=== PATIENT | male | born 1960 | race Caucasian/White ===

== ENCOUNTER 2022-02-21 08:15 | Outpatient (CLI) | payer OTHER, SELFPAY ==
[2022-02-21 11:38] LABS: Albumin* 4.5 g/dL (3.3-5.0); Chloride* 102 mmol/L (96-114); Potassium* 4.6 mmol/L (3.6-5.1); Sodium* 138 mmol/L (135-149)
[2022-02-21 11:41] LABS: Blood Urea Nitrogen* 27 mg/dL (7-30); Carbon Dioxide* 27 mmol/L (20-32); Creatinine* 1.5 mg/dL (0.5-1.5); Estimated Glomerular Filt Rate 53 ml/min; Glucose* 140 mg/dL (60-115); Phosphorus* 4.4 mg/dL (2.5-4.5)
[2022-02-21 11:42] LABS: Calcium* 9.8 mg/dL (8.4-10.6)
[2022-02-21 11:50] LABS: NT Pro B Type NatriureticPept* 18 PG/mL (0-125)
[2022-02-21 12:05] LABS: Creatinine Urine 101.7 mg/dL
[2022-02-21 12:09] LABS: Microalbumin Creatinine Ratio 20 mg/g (0-30); Microalbumin Urine 3 mg/dL
[2022-02-26 10:34] LABS: Troponin I* < 0.01 ng/ml (0.01-0.04)
== END 2022-02-21 08:16 | disposition home or self-care (01) ==
PROVIDERS: PCP Family Medicine; Visit Provider Internal Medicine Nephrology
DX: N18.30 Chronic kidney disease, stage 3 unspecified (principal); R06.02 Shortness of breath
CPT/HCPCS: 80069; 82043; 82570; 83880; 84484

== ENCOUNTER 2022-03-06 08:44 | Outpatient (CLI) | payer OTHER, SELFPAY ==
--- NOTE | 2022-03-06 09:00 | CRLHL7_ITS ---
For Patients: As a result of the Century Cures Act, medical imaging exams and procedure reports are released immediately into your electronic medical record. You may view this report before your referring provider. If you have questions, please contact your health care provider. [facility] ??? [facility] MYOCARDIAL PERFUSION SCAN CLINICAL HISTORY: 62-year-old male. Chest pain. Hypertension. Hyperlipidemia. Stage 3 chronic kidney disease. Type 2 diabetes. 200 pounds. TECHNIQUE: (Resting SPECT and stress gated SPECT with wall motion and ejection fraction) Stress: Treadmill (3 minutes 37 seconds) Maximum heart rate: 149 bpm Maximum systolic blood pressure: 181 mmHg systolic Rate pressure product: 26,969 Dose (Stress/Rest): 32.7 mCi Tc-99m Sestamibi/8.49 mCi Tc-99m Sestamibi (IV) Comparison: None FINDINGS: There is good uptake of activity by the left ventricle. No left ventricular enlargement is noted. There is soft tissue attenuation. No other significant fixed or reversible defects are identified. The gated images demonstrate a normal left ventricular ejection fraction of approximately 65 percent. No regional wall motion abnormalities are identified. IMPRESSION: 1) There is no evidence of significant myocardial ischemia or infarction. 2) Normal left ventricular ejection fraction of approximately 65 percent. DAVID CONTI M.D. Diagnostic/Nuclear Medicine Radiologist [email or web address] Transcribed: 11:32 a.m. PT/Dictated by: David Conti MD @ 03/06/2022 11:18:00 AM (Electronically Signed)
--- NOTE | 2022-03-06 11:15 | PM.ST ---
Stress Test Note Date Time Seen by Provider: 09:45 Date Seen: 03/06/22 Date of test: 03/06/22 Providers Referring provider: Alex Ryan JR Primary care provider: Nathaniel Dee Stress test physician: Ciarra Shrestha Stress Test Note Stress test ordered: Stress Myoview Indication for test: Dyspnea on exertion, chest discomfort/pain. History sheet reviewed. Stress test medicine: None Results discussion: Resting EKG: Sinus rhythm, 73 beats per minute Resting blood pressure: 180/104 Stress test: Patient was exercised on the treadmill following standard Jose A protocol. He was able to exercise 3 minutes 37 seconds, achieving 5.2 Mets. He did obtain a maximum heart rate of 149 beats per minute which was 109% of a calculated target heart rate of 136. He had a maximal blood pressure of 181/102, rate pressure product of 23,168. Patient was very symptomatic lead dyspneic with this level of exercise, did not have any chest pain. He got significant leg cramps/fatigue with this as well. There was no arrhythmia, no EKG ischemic evidence seen. Patient will have his nuclear images completed postexercise. Impression: Significant can not dyspnea with exercise but no chest pain, objectively negative EKG portion of this exercise Myoview. Follow up suggested: Await nuclear imaging to couple this test for a formal diagnostic report. He was discharged from the EKG portion of the test back to baseline.
== END 2022-03-06 08:45 | disposition home or self-care (01) ==
LOC: STRESS 08:45
PROVIDERS: PCP Family Medicine; Visit Provider Internal Medicine Nephrology
DX: R07.89 Other chest pain (principal); I10 Essential (primary) hypertension; E78.5 Hyperlipidemia, unspecified; N18.30 Chronic kidney disease, stage 3 unspecified; E11.9 Type 2 diabetes mellitus without complications
CPT/HCPCS: 78452; 93016; 93017; A9500

== ENCOUNTER 2022-04-16 07:51 | Outpatient (CLI) | payer OTHER, SELFPAY ==
--- OUTSIDE RECORDS SUMMARY | 2022-04-16 08:07 | XMS_ITS | Encounter Summary ---
:1960 Author [facility] Address [address] [address] Care Team Providers Name Role Phone Unavailable Primary Care Provider Unavailable Reason for Visit Reason Onset Date Comments Refill 08/17/2020 Encounter Details Date Type Department Care Team Description 08/17/2020 Refill Specialty Center 3931 Newton Hernandez MD Refill Nephrology 3931 [facility] [address] [place] [address] [place] [address] [phone] Social History Tobacco Use Types Packs/Day Years Used Date Smoking Tobacco: Never Smokeless Tobacco: Never Alcohol Use Standard Drinks/Week Comments Yes 0 (1 standard drink = 0.6 oz pure Alcoho lic Drinks/day: Amount:1-2 alcohol) drinks; Freq:=< Curt hly; Alcohol Habits Answer Date Recorded How often do you have a drink Not asked containing alcohol? How many drinks containing alcohol Not asked do you have on a typical day when you are drinking? How often do you have six or more Not asked drinks on one occasion? Comment: Alcoholic Drinks/day: Amount:1-2 016 drinks; Freq:=< Monthly; Sex Assigned at Date Recorded Not on file documented as of this encounter Nursing Notes Latoya Barriga RN - 08/18/2020 1:42 PM CST Rx refused. Needs an appt. 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 Count carbohydrates at meals and snacks. documented as of this encounter Visit Diagnoses Diagnosis Chronic kidney disease, stage III (moder ate) ([facility]) Chronic kidney disease, Stage III (moder ate) documented in this encounter
--- OUTSIDE RECORDS SUMMARY | 2022-04-16 08:07 | XMS_ITS | Encounter Summary ---
:1960 Author Organization [employer] Address [address], [place] [address] Care Team Providers Name Role Phone Sunny Giraldo MD Primary Care Provider Reason for Visit Reason Comments Diabetes Encounter Details Date Type Department Care Team Description 04/25/2019 Office Visit [facility] Sunny Giraldo M D Type 2 diabetes mellitus without complic ation, without long-term current use of insulin (HRC) (Primary Dx); Medicine [id number] COULTER (dyspnea on exertion) [address] [place] [phone] Social History Tobacco Use Types Packs/Day Years [...] on file documented as of this encounter Last Filed Vital Signs Vital Sign Reading Time Taken Comments Blood Pressure 122/85 04/25/2019 9:10 AM CDT Pulse 79 04/25/2019 9:10 AM CDT Temperature 36.8 ??C (98.2 ??F) 04/25/2019 9:10 AM CDT Respiratory Rate 16 04/25/2019 9:10 AM CDT Oxygen Saturation - - Inhaled Oxygen Concentration - - Weight 83.5 kg (184 lb) 04/25/2019 9:10 AM CDT Height - - Body Mass Index 24.61 02/25/2018 4:20 PM CDT documented in this encounter Progress Notes Sunny Giraldo MD - 04/25/2019 9:00 AM CDT SUBJECTIVE: 59 y.o. male for follow up of diabetes. Diabetic Review of Systems - medication compliance: compliant all of the time, diabetic diet compliance: compliant most of the time, home glucose monitoring: is performed sporadically, Ketonuria noncompliant much of the time, last eye exam approximately this year . Other symptoms and concerns: None. Current Outpatient Medications Medication Sig Dispense Refill ??? ALBUterol sulfate HFA 108 (90 Base) MCG/ACT inhaler Inhale 1-2 Puffs every 4 hours as needed. 1 Inhaler 0 ??? atorvastatin (LIPITOR) 20 MG tablet TAKE 1 TAB BY MOUTH DAILY. 90 Tablet 0 ??? blood glucose (ACCU-CHEK GUIDE) test strip Use 1 Strip to test three times a day. check blood sugar before breakfast, before & 1 hour after start of largest meal 100 Strip 11 ??? Blood Glucose Monitoring Suppl (ACCU-CHEK GUIDE) w/Device KIT HOLD RX, only fill if alternate supplies not covered by insurance. If not covered, substitute appropriate meter. Use to check blood sugars. 1 Kit 0 ??? chlorthalidone (HYGROTON) 25 MG tablet TAKE 1 TABLET BY MOUTH DAILY. 90 Tablet 0 ??? chlorthalidone (HYGROTON) 25 MG tablet Take 1 Tablet by mouth daily. 90 Tablet 3 ??? lancets (ACCU-CHEK FASTCLIX) Use 1 Each to test three times a day. Use as directed to check blood sugars 102 Each 11 ??? losartan (COZAAR) 25 MG tablet Take 2 Tablets by mouth daily. 180 Tablet 3 ??? metFORMIN (GLUCOPHAGE) 1000 MG tablet Take 1 Tablet by mouth two times a day with meals. 180 Tablet 3 ??? omeprazole (PRILOSEC) 20 MG capsule Take 20 mg by mouth daily. Take 1 hour before a meal. No current facility-administered medications for this visit. OBJECTIVE: Appearance: alert, well appearing, and in no distress, oriented to person, place, and time and normal appearing weight. BP 122/85 (BP Location: Left Arm, BP Cuff Size: Regular) Pulse 79 Temp 98.2 ??F (36.8 ??C) (Oral) Resp 16 Wt 184 lb (83.5 kg) BMI 24.61 kg/m?? Exam: fundi normal, heart sounds normal rate, regular rhythm, normal S1, S2, no murmurs, rubs, clicks or gallops, chest clear, no hepatosplenomegaly, no carotid bruits, feet: warm, good capillary refill and normal monofilament test His lung I do not hear any wheezing crackles or rhonchi. Patient complained about sometimes if he go up the hill if it can of some tightness in his chest. Hehad so far 2-3 echocardiogram or appear with normal limit. Patient did use some steroid on some albuterol inhaler 1 time but he got so hyper with it he quit to taking it. 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 Possible some allergy occasion he take Natalie. He does not know if any about oral inhaler help or not. ASSESSMENT: Diabetes Mellitus: stable PLAN: See orders for this visit as documented in the electronic medical record. Issues reviewed with him: diabetic diet discussed in detail, written exchange diet given, low cholesterol diet, weight control and daily exercise discussed, home glucose monitoring emphasized, all medications, side effects and compliance discussed carefully, foot care discussed and Podiatry visits discussed, annual eye examinations at Ophthalmology discussed, glycohemoglobin and other lab monitoring discussed and watermelon inspector diabetic complications discussed. We going to try albuterol metered-dose inhaler and see if is going to be useful, if this also not useful he agree I will send him to [facility] for further lung capacity evaluation and lungs test. Patient agree documented in this encounter Plan of Treatment Not on filedocumented as of this encounter Goals Goal Patient Goal Associated Recent Patient-Stated? 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 Count carbohydrates at meals and snacks. documented as of this encounter Results Hgb A1C (04/25/2019 10:08 AM CDT) P athologist Signature Hemoglobin A1C 5.6 <=5.6 % 04/26/2019 [facility] 10:41 AM CDT LABORATORY Specimen Anatomical Collection Method / Collection Time Recei katherine Time (Source) Location / Volume Laterality Blood Venipuncture / 04/25/2019 10:08 9 Unknown AM CDT 10:08 AM CDT Sunny Giraldo MD LAB_1 Performing Organization Address City/[facility]/ZIP Code Phon e Number [facility] [address] [place] [address] (ABNORMAL) Lipid Panel - LDLD If Trig High (04/25/2019 10:08 AM CDT) Patholo gist Method Time Signature Cholesterol 146 0 - 199 04/25/2019 [facility] mg/dL 3:53 PM CDT LABORATORY Triglyceride 118 <=149 04/25/2019 [facility] mg/dL 3:53 PM CDT LABORATORY HDL Cholesterol 35 (L) >=40 mg/dL 04/25/2019 [facility] 3:53 PM CDT LABORATORY LDL, Calculated 87 <130 mg/dL 04/25/2019 [facility] 3:53 PM CDT LABORATORY Non HDL Chol, 111 <=159 04/25/2019 [facility] Calculated mg/dL 3:53 PM CDT LABORATORY Cholesterol/HDL 4.2 04/25/2019 [facility] Ratio 3:53 PM CDT LABORATORY Hours Fasting 15 04/25/2019 [facility] 3:53 PM CDT Specimen Anatomical Collection Method / Collection Time Recei katherine Time (Source) Location / Volume Laterality Blood Venipuncture / 04/25/2019 10:08 9 Unknown AM CDT 10:08 AM CDT Sunny Giraldo MD LAB_1 Performing Organization Address City/State/ZIP Code Phon e Number [facility] [address] [place] [address] [facility] [address] [place] [address], [phone] [facility] documented in this encounter Visit Diagnoses Diagnosis Type 2 diabetes mellitus without complic ation, without long-term current use of insulin (HRC) - Primary COULTER (dyspnea on exertion) Other dyspnea and respiratory abnormalit y documented in this encounter Care Teams Printing Press Operator Relationship Specialty Start Date End Date Sunny Giraldo MD PCP - General Family Practice 02/21/17 08/08/20 [address] [place] [address] documented as of this encounter
--- OUTSIDE RECORDS SUMMARY | 2022-04-16 08:07 | XMS_ITS | Encounter Summary ---
:1960 Author Organization [employer] Address [address] [place] [address] Care Team Providers Name Role Phone Sunny Giraldo MD Primary Care Provider Reason for Visit Reason Comments UPDATE Encounter Details Date Type Department Care Team Description 08/26/2019 Telephone Specialty Center 3931 Newton Hernandez MD UPDATE Nephrology [address] [facility] [address] [facility] [address] [place] [address] [place], [place] [phone] (Wo rk) Social History Tobacco Use Types Packs/Day Years [...] documented as of this encounter Nursing Notes Sydnee Li LPN - 08/27/2019 3:31 PM CST Patient notified. OLE BEVELER Terrence Hernandez MD - 08/26/2019 1:51 PM CST Have him stop the chlorthalidone. Increase losartan to 75mg daily. OLE BEVELER Asia Tejada RN - 08/26/2019 9:28 AM CST Pts spouse called, said pt was not able to respond to lab message, but did receive the lab message asking about BP. Pt's BP update for past 2 weeks: 135 - 138 / 88-90 Pt does not notice a change in BP since med changed. You can respond to pt via [employer] message here. OLE BEVELER documented in this encounter Plan of Treatment Not on filedocumented as of this encounter Goals Goal Patient Goal Associated Recent Patient-Stated? Author Type Problems Progress Eating Diabetes On track No Genaro healthy Education (05/30/2017 ASHIA Crews, 4:29 PM OUTSOLE BEVELER) CHEIKH RAMIREZ Note: Formatting of this note might be d ifferent from the original. Count carbohydrates at meals and snacks. documented as of this encounter Visit Diagnoses Diagnosis Chronic kidney disease, stage III (moder ate) ([facility]) Chronic kidney disease, Stage III (moder ate) documented in this encounter Care Teams Botanical Technical Officer Relationship Specialty Start Date End Date Sunny Giraldo MD PCP - General Family Practice 02/21/17 08/08/20 [address] [place] [address] documented as of this encounter
--- OUTSIDE RECORDS SUMMARY | 2022-04-16 08:07 | XMS_ITS | Encounter Summary ---
:1960 Author Organization [facility] Address [address] [address] Care Team Providers Name Role Phone Sunny Giraldo MD Primary Care Provider Reason for Referral (Routine) - Closed Specialty Diagnoses / Procedures Referred By Contact Refer red To Contact Diagnoses Anginal pain (HRC) Eva Hernandez MD Procedures Stress Echocardiogram 3931 [facility] [address] [place], [place] [address] Referral ID Status Reason Start Date Expiration Date Visits Requ ested Visits Authorized [id number] Closed 03/03/2019 06/01/2020 1 1 Reason for Visit Reason Comments Orders Needed Encounter Details Date Type Department Care Team Description 03/03/2019 Notes/Orders Specialty Center 3931 Newton Hernandez MD Anginal pain (HRC) Nephrology [address] [place] [address] (Primary Dx) 3931 [facility] [address] [place] [phone] (Wo rk) Social History Tobacco Use Types [...] on file documented as of this encounter Progress Notes Britt Vera RN - 03/03/2019 11:41 AM CDT Stress echo ordered not showing up per cardiology - may be wrong order. Please review pended order and sign or advise as appropriate. Nursing, patient will need call to schedule. Eva Hernandez MD - 03/03/2019 11:41 AM CDT done Britt Vera RN - 03/03/2019 11:41 AM CDT Patient warm transferred to cardiology to schedule. documented in this encounter Plan of Treatment Not on filedocumented as of this encounter Goals Goal Patient Goal Associated Recent Patient-Stated? 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 Count carbohydrates at meals and snacks. documented as of this encounter Results Stress Echocardiogram (03/12/2019 11:02 AM CDT) Specimen (Source) Anatomical Collection Method Collection Time Re ceived Time Location / / Volume Laterality 03/12/2019 11:02 AM CDT Narrative PN ECHO - 03/12/2019 11:50 AM CDT STRESS ECHOCARDIOGRAM. Date: 03/12/2019 Start: 11:02 AM Fabio y: Jose CONCLUSIONS REST: LV chamber size, wall thickness, and seg mental and global wall motion are normal. No significant valvular abno rmalities are seen. The visually estimated resting LVEF is 5 5 %. STRESS: All segments display appropriate hyperki nesis; ejection fraction increases appropriately. End systolic area decreases CONCLUSIONS: Normal exercise echocardiogram with adeq uate heart rate and workload. No evidence for inducible ischemia. Risk stratification by stress echocardio graphy is identified as low risk based on normal stress echocardiogr am. REST ECG Normal sinus rhythm. Mild nonspecific S T-T segments. Resting HR:91 bpmResting BP:163/99 mmHg Pre-Stress Physical Exam No medications which affect electrocard iographic interpretation. STRESS Stress Type: Bike Ergometer Peak HR: 151 bpm ?HR Response: Normal Peak BP: 187/97 mmHg ?BP Response: Normal Max Predicted HR: 163 bpm ? HR BP Product: 23896 % of Max Predicted HR: 93 ? Max Exercise: 7.1 METS Test Duration: 8.23 min Reason for Termination: Fatigue ? Exercise Effort: Good Risk Stratification: Low risk Stress Interpretation ECG portion of stress test is negative for ischemia. RESULTS Global LVEF (rest): Normal (LVEF >51%) Global LVEF (stress): Normal (LVEF >51% ) ECG No significant ST-T changes noted durin g exercise. ARRHYTHMIAS No rhythm abnormality. SYMPTOMS Fatigue. Musculoskeletal. Shortness of breath. Protocol completed. Predicted heart rat e achieved. No chest discomfort. M-MODE/2D MEASUREMENTS & CALCULATIONS ? Ascending Aorta: 3.6 cm EF Estimated: 55 % ? MR Radius: PROCEDURE Doppler Quality: Adequate quality pulse, continuous wave, and color Doppler was performed and interpreted. 2-D Quality:Adequate quality 2-dimension al echo was performed and interpreted. Indications: Angina. Contrast Medium: Optison. Contrast Amt. - 1.5 ml Height: 72 inches Weight: 182 pounds BSA : 2.05 m^2 BMI: 24.68 kg/m^2 Rhythm: Sinus Gender: ? Male *Suboptimal study; Echo dropout of the a nterior, lateral, apical, septal, inferior wall/s. 6 of 6 segments in standard Apical 4 chamber, 3 chamber, 2 chamber view/s are not visu alized on study. An image enhancer was used due to suboptimal endo cardial definition. With the use of an image enhancer, the segments o f the left ventricle were reasonably visualized. *IV Size: 22 ga; IV Location: right; # o f attempts: 1; Vein: median cubital vein. SIGNATURE DEMOGRAPHICS Patient Name ?? BRENNEN MORENO ??Room [facility] ?OUTPT ?G Patient Number [id number] ? Date o f Study ?03/12/2019 Accession ?[id number] ?Int erpreting ? JOHN HOLLAND, Number ?Physician ? Date of ??1960 ? [place] lay Physician EVA HERNANDEZ MD Primary ?EVA HERNANDEZ Physician ?MD ? Domestic Freight Forwarder ?HAYDEN, RDCS Nurse ?MANOLO, veneer puller Note John Holland MD - 03/12/2019For matting of this note might be different from the original. STRESS ECHOCARDIOGRAM. Date: 03/12/2019 Start: 11:02 AM Facilit y: Jose CONCLUSIONS REST: LV chamber size, wall thickness, and seg mental and global wall motion are normal. No significant valvular abno rmalities are seen. The visually estimated resting LVEF is 5 5 %. STRESS: All segments display appropriate hyperki nesis; ejection fraction increases appropriately. End systolic area decreases CONCLUSIONS: Normal exercise echocardiogram with adeq uate heart rate and workload. No evidence for inducible ischemia. Risk stratification by stress echocardio graphy is identified as low risk based on normal stress echocardiogr am. REST ECG Normal sinus rhythm. Mild nonspecific S T-T segments. Resting HR:91 bpmResting BP:163/99 mmHg Pre-Stress Physical Exam No medications which affect electrocard iographic interpretation. STRESS Stress Type: Bike Ergometer Peak HR: 151 bpm HR Response: Normal Peak BP: 187/97 mmHg BP Response: Jacy l Max Predicted HR: 163 bpm HR BP Product : 81080 % of Max Predicted HR: 93 Max Exercise: 7.1 METS Test Duration: 8.23 min Reason for Termination: Fatigue Exercis e Effort: Good Risk Stratification: Low risk Stress Interpretation ECG portion of stress test is negative for ischemia. RESULTS Global LVEF (rest): Normal (LVEF >51%) Global LVEF (stress): Normal (LVEF >51% ) ECG No significant ST-T changes noted durin g exercise. ARRHYTHMIAS No rhythm abnormality. SYMPTOMS Fatigue. Musculoskeletal. Shortness of breath. Protocol completed. Predicted heart rat e achieved. No chest discomfort. M-MODE/2D MEASUREMENTS & CALCULATIONS Ascending Aorta: 3.6 cm EF Estimated: 55 % MR Radius: PROCEDURE Doppler Quality: Adequate quality pulse, continuous wave, and color Doppler was performed and interpreted. 2-D Quality:Adequate quality 2-dimension al echo was performed and interpreted. Indications: Angina. Contrast Medium: Optison. Contrast Amt. - 1.5 ml Height: 72 inches Weight: 182 pounds BSA : 2.05 m^2 BMI: 24.68 kg/m^2 Rhythm: Sinus Gender: Male *Suboptimal study; Echo dropout of the a nterior, lateral, apical, septal, inferior wall/s. 6 of 6 segments in standard Apical 4 chamber, 3 chamber, 2 chamber view/s are not visu alized on study. An image enhancer was used due to suboptimal endo cardial definition. With the use of an image enhancer, the segments o f the left ventricle were reasonably visualized. *IV Size: 22 ga; IV Location: right; # o f attempts: 1; Vein: median cubital vein. SIGNATURE DEMOGRAPHICS Patient Name BRENNEN MORENO Room Number OUTPT G Patient Number [id number] Date of Study 0 03/12/2019 Interpreting Seb ESPANA Physician Date of 1960 Ordering Physi roque HERNANDEZ MD Primary EVA HERNANDEZ Physician Domestic Freight Forwarder HAYDEN, RDCS Nurse MANOLO, RN Eva Hernandez MD PN ECHO ORDERABLES Performing Organization Address City/State/ZIP Code Phon e Number PN ECHO documented in this encounter Visit Diagnoses Diagnosis Anginal pain (HRC) - Primary Other and unspecified angina pectoris Anginal pain (HRC) Other and unspecified angina pectoris documented in this encounter Care Teams Salsa Dance Instructor Relationship Specialty Start Date End Date Sunny Giraldo MD PCP - General Family Practice 02/21/17 08/08/20 [address] [place] [address] documented as of this encounter
--- OUTSIDE RECORDS SUMMARY | 2022-04-16 08:07 | XMS_ITS | Encounter Summary ---
:1960 Author Organization [facility] Address [address], [place] [address] Care Team Providers Name Role Phone Unavailable Primary Care Provider Unavailable Reason for Visit Reason Comments Refill metFORMIN (GLUCOPHAGE) 1000 MG tablet [Pharmacy Med Name: METFORMIN HCL 1,000 MG TABLET] Encounter Details Date Type Department Care Team Description 09/25/2020 Refill [facility] Pita Giraldo MD Refill (metFORMIN [address] [address] (GLUCOPHAGE) 1000 MG [place], [place] [address] tablet [Pharmacy Med [id number] Name: METFORMIN HCL [id number] 1,000 MG TABLET]) Social History Tobacco Use Types Packs/Day Years [...] documented as of this encounter Nursing Notes Ernestine Salinas RN - 09/26/2020 3:11 PM CST 90 day supply given per Emergency Refill Standing Order. Ernestine Salinas RN 09/26/2020, 3:11 PM E COMMERCE MARKETING ANALYST Interface, Out [employer] Prov Query - 09/25/2020 12:26 AM CST metFORMIN (GLUCOPHAGE) 1000 MG tablet [Pharmacy Med Name: METFORMIN HCL 1,000 MG TABLET] Medication started: 02/22/2017 Last ordered by PITA GIRALDO: 04/05/2020 (173 days ago) QTY: 180, Refills: 1, Sig: take 1 tablet by mouth two times a day with meals. (unchanged) -> Cr is overdue (performed over 13 months ago, required every 12 months) -> HBA1C is overdue (performed 13 months ago, required every 12 months) -> Cr is abnormal (1.5 mg/dL lies outside 0.73 mg/dL - 1.18 mg/dL) Last qualifying visit: 09/08/2019 (with PITA GIRALDO) Next scheduled visit: None Cr: 1.5 mg/dL on 08/18/2019 HBA1C: 5.5 % on 09/08/2019 Powered by [employer], Reference: [id number], 09/25/2020 12:26:41 AM E COMMERCE MARKETING ANALYST, Pool: JO REFILL ([id number]) Interface, Out Surescripts Prov Query - 09/25/2020 12:26 AM CST The following lab order(s) may be associated with the Result Note below: HGB A1C Notes recorded by Pita Giraldo MD on 09/09/2019 at 8:41 AM E COMMERCE MARKETING ANALYST hgA1C great follow up for DM in 6 months Interface, Out Surescripts Prov Query - 09/25/2020 12:26 AM CST The following lab order(s) may be associated with the following Patient Result Comment (Entered by Terrence Hernandez MD at 08/25/2019 11:29 AM): RENAL FUNCTION PANEL The calcium is up again. Likely this is from the chlorthalidone. Let me know how your blood pressureis doing. We may have to adjust the chlorthalidone. documented in this encounter Plan of Treatment Not on filedocumented as of this encounter Goals Goal Patient Goal Associated Recent Patient-Stated? Author Type Problems Progress Eating Diabetes On track Kelin Lam healthy Education (05/30/2017 ASHIA Crews, 4:29 PM E COMMERCE MARKETING ANALYST) ASHLEY, CHEIKH Note: Formatting of this note might be d ifferent from the original. Count carbohydrates at meals and snacks. documented as of this encounter Visit Diagnoses Not on filedocumented in this encounter
--- OUTSIDE RECORDS SUMMARY | 2022-04-16 08:07 | XMS_ITS | Encounter Summary ---
:1960 Author [facility] Address [address] [address] Care Team Providers Name Role Phone Pita Giraldo MD Primary Care Provider Reason for Visit Reason Comments Refill atorvastatin (LIPITOR) 20 MG tablet [Pharmacy Med Name: ATORVASTATIN 20 MG TABLET] Encounter Details Date Type Department Care Team Description 04/20/2019 Refill [facility] Pita Giraldo MD Refill (atorvastatin [address] (LIPITOR) 20 MG tablet [place], [place] [address] [Pharmacy Med Name: [id number] ATORVASTATIN 20 MG [phone] TABLET]) Social History Tobacco Use Types Packs/Day [...] on one occasion? Comment: Alcoholic Drinks/day: Amount:1-2 03/10/ 016 drinks; Freq:=< Monthly; Sex Assigned at Date Recorded Not on file documented as of this encounter Nursing Notes Neel Mccain RN - 04/20/2019 7:36 AM CDT Renewed medication per medication refill protocol. Requested Prescriptions Pending Prescriptions Disp Refills atorvastatin (LIPITOR) 20 MG tablet [Pharmacy Med Name: ATORVASTATIN 20 MG TABLET] 90 Tablet 0 Sig: TAKE 1 TAB BY MOUTH DAILY. Interface, Out [employer] Prov Query - 04/20/2019 2:14 AM CDT atorvastatin (LIPITOR) 20 MG tablet [Pharmacy Med Name: ATORVASTATIN 20 MG TABLET] Medication started: 10/29/2017 Last ordered by PITA GIRALDO: 10/27/2018 (175 days ago) QTY: 90, Refills: 1, Sig: take 1 tab by mouth daily. (unchanged) -> Refill x 3 months (courtesy refill. overdue for an office visit) Last qualifying visit: 02/25/2018 (with PITA GIRALDO) Next scheduled visit: 04/25/2019 (in Family Practice) Powered by [employer], Reference: [id number], 04/20/2019 2:14:41 AM CDT, Pool: JO REFILL ([id number]) documented in this encounter Plan of Treatment Not on filedocumented as of this encounter Goals Goal Patient Goal Associated Recent Patient-Stated? Author Type Problems Progress Eating Diabetes On track No [place], healthy Education (05/30/2017 ASHIA Crews, 4:29 PM ACADEMIC INTERVENTIONIST) ASHLEY, CHEIKH Note: Formatting of this note might be d ifferent from the original. Count carbohydrates at meals and snacks. documented as of this encounter Visit Diagnoses Not on filedocumented in this encounter Care Teams General Dentist Relationship Specialty Start Date End Date Pita Giraldo MD PCP - General Family Practice 02/21/17 08/08/20 [address] [place] [address] documented as of this encounter
--- OUTSIDE RECORDS SUMMARY | 2022-04-16 08:07 | XMS_ITS | Encounter Summary ---
:1960 [facility] Address [address], [place] [address] Care Team Providers Name Role Phone Pita Giraldo MD Primary Care Provider Reason for Visit Reason Comments Refill chlorthalidone (HYGROTON) 25 MG tablet [Pharmacy Med Name: CHLORTHALIDONE 25 MG TABLET] Encounter Details Date Type Department Care Team Description 03/03/2019 Refill [facility] Pita Giraldo M D Refill (chlorthalidone Medicine [address] (HYGROTON) [address] MG [address] [place] [address] [Pharmacy Med Name: [place], [place] [phone] (Wo rk) CHLORTHALIDONE 25 MG [id number] TABLET]) [phone] Social History Tobacco Use Types Packs/Day Years [...] documented as of this encounter Nursing Notes Chelsey Lentz - 03/10/2019 2:46 PM CDT Appointment Letter PRINTED & Sent Ernestine Salinas RN - 03/04/2019 3:26 PM CDT OFFICE APPOINTMENT NEEDED Please notify patient to schedule an appointment within 30 days. Requested Prescriptions Pending Prescriptions Disp Refills chlorthalidone (HYGROTON) 25 MG tablet [Pharmacy Med Name: CHLORTHALIDONE 25 MG TABLET] 90 Tablet 0 Sig: TAKE 1 TABLET BY MOUTH DAILY. Interface, Out Surescripts Prov Query - 03/03/2019 1:31 AM CDT chlorthalidone (HYGROTON) 25 MG tablet [Pharmacy Med Name: CHLORTHALIDONE 25 MG TABLET] Medication started: 05/13/2013 Last ordered by PITA GIRALDO: 12/03/2018 (90 days ago) QTY: 90, Refills: 0, Sig: take 1 tablet by mouth daily. (unchanged) -> Cr is abnormal (1.4 mg/dL lies outside 0.73 mg/dL - 1.18 mg/dL) -> Refill x 3 months (courtesy refill. overdue for an office visit) Last qualifying visit: 02/25/2018 (with PITA GIRALDO) Next scheduled visit: None SBP: 149 mm Hg on 02/25/2018 DBP: 96 mm Hg on 02/25/2018 Cr: 1.4 mg/dL on 02/19/2019 Na: 141 mEq/L on 02/19/2019 K: 4 mEq/L on 02/19/2019 Powered by [employer], Reference: [id number], 03/03/2019 1:31:41 AM CDT, Pool: JO ARELLANO ([id number]) documented in this encounter Plan of Treatment Not on filedocumented as of this encounter Goals Goal Patient Goal Associated Recent Patient-Stated? Author Type Problems Progress Eating Diabetes On track No Genaro [employer] Education (05/30/2017 ASHIA Crews, 4:29 PM BOARD CATCHER) ASHLEY, CHEIKH Note: Formatting of this note might be d ifferent from the original. Count carbohydrates at meals and snacks. documented as of this encounter Visit Diagnoses Diagnosis Chronic kidney disease, stage III (moder ate) ([facility]) Chronic kidney disease, Stage III (moder ate) documented in this encounter Care Teams Tread Booker Relationship Specialty Start Date End Date Pita Giraldo MD PCP - General Family Practice 02/21/17 08/08/20 [address] [place] [address] documented as of this encounter
--- OUTSIDE RECORDS SUMMARY | 2022-04-16 08:07 | XMS_ITS | Encounter Summary ---
:1960 Author Organization [facility] Address [address] [place] [address] Care Team Providers Name Role Phone Sunny Giraldo MD Primary Care Provider Encounter Details Date Type Department Care Team Description 09/08/2019 Lab Visit [facility] Type 2 diabetes mellitus [address] without complication, [place] [address] without long-term current [phone] use of insulin ([facility]C) Social History Tobacco Use Types Packs/Day Years [...] documented as of this encounter Progress Notes Sunny Giraldo MD - 09/08/2019 6:30 PM CST hgA1C great follow up for DM in 6 months INE SORTER documented in this encounter Plan of Treatment Not on filedocumented as of this encounter Goals Goal Patient Goal Associated Recent Patient-Stated? Author Type Problems Progress Eating Diabetes On track No [place], healthy Education (05/30/2017 ASHIA Crews, 4:29 PM MACHINE SORTER) CHEIKH RAMIREZ Note: Formatting of this note might be d ifferent from the original. Count carbohydrates at meals and snacks. documented as of this encounter Procedures Procedure Name Priority Date/Time Associated Diagnosis Comme nts HGB A1C Routine 09/08/2019 6:37 PM Type 2 diabetes Result s for this MACHINE SORTER mellitus without procedure a re in the complication, without result s section. long-term current use of insulin (HRC) documented in this encounter Results Hgb A1C (09/08/2019 6:37 PM MACHINE SORTER) P athologist Signature Hemoglobin A1C 5.5 <=5.6 % 09/08/2019 [facility] 9:35 PM [facility] S[facility] Specimen Anatomical Collection Method / Collection Time Recei katherine Time (Source) Location / Volume Laterality Blood Venipuncture / 09/08/2019 6:37 09/08/2019 6:37 Unknown PM MACHINE SORTER PM MACHINE SORTER Sunny Giraldo MD LAB_1 Performing Organization Address City/State/ZIP Code Phon e Number [facility] [address] [place] [address] documented in this encounter Visit Diagnoses Diagnosis Type 2 diabetes mellitus without complic ation, without long-term current use of insulin (HRC) documented in this encounter Care Teams Relay Man Relationship Specialty Start Date End Date Sunny Giraldo MD PCP - General Family Practice 02/21/17 08/08/20 [address] [place] [address] documented as of this encounter
--- OUTSIDE RECORDS SUMMARY | 2022-04-16 08:07 | XMS_ITS | Encounter Summary ---
:1960 Author Organization [facility] Address [address], [place] [address] Care Team Providers Name Role Phone Pita Giraldo MD Primary Care Provider Reason for Visit Reason Comments Refill VENTOLIN HFA 108 (90 Base) M CG/ACT inhaler [Pharmacy Med Name: VENTOLIN HFA 90 MCG INHALER] Encounter Details Date Type Department Care Team Description 02/18/2020 Refill [facility] Pita Giraldo M D Refill (VENTOLIN HFA 108 Medicine [address] (90 Base) MCG/ACT [address] [place] [address] inhaler [Pharmacy Med [place], [place] [phone] (Wo rk) Name: VENTOLIN HFA 90 [address] MCG INHALER]) [phone] Social History Tobacco Use Types Packs/Day Years [...] as of this encounter Nursing Notes Sydnee Martines RN - 02/18/2020 2:23 PM CDT Further Assistance Needed on Refill from Clinician RN reviewed. Medication ordered for short term. Medication newly ordered in last 12 months and Please advise if usp supply is appropriate Last qualifying visit: 09/08/2019 (with PITA GIRALDO) ? Next scheduled visit: None ?? Review pended order for accuracy and sign if appropriate and Route to [place] to schedule appointment if needed. Requested Prescriptions Pending Prescriptions Disp Refills ??? VENTOLIN HFA 108 (90 Base) MCG/ACT inhaler [Pharmacy Med Name: VENTOLIN HFA 90 MCG INHALER] 1 Each 0 Sig: INHALE 1 TO 2 PUFFS BY MOUTH EVERY 4 HOURS NEEDED Interface, Out Surescripts Prov Query - 02/18/2020 1:48 PM CDT VENTOLIN HFA 108 (90 Base) MCG/ACT inhaler [Pharmacy Med Name: VENTOLIN HFA 90 MCG INHALER] Medication started: 04/25/2019 Last ordered by PITA GIRALDO: 04/25/2019 (299 days ago) QTY: 1, Refills: 0, Sig: inhale 1-2 puffs every 4 hours as needed. (changed but equivalent) -> Refill x 9 months (until due for an office visit) -> Calculate the quantity and number of refills manually. Last qualifying visit: 09/08/2019 (with PITA GIRALDO) Next scheduled visit: None SBP: 168 mm Hg on 09/08/2019 DBP: 87 mm Hg on 09/08/2019 Powered by [employer], Reference: [id number], 02/18/2020 1:48:22 PM CDT, Pool: JO ARELLANO ([id number]) documented in this encounter Plan of Treatment Not on filedocumented as of this encounter Goals Goal Patient Goal Associated Recent Patient-Stated? Author Type Problems Progress Eating Diabetes On track No Genaro [employer] Education (05/30/2017 ASHIA Crews, 4:29 PM SURVEYING OR SPATIAL SCIENCE TECHNICIAN) ASHLEY, CHEIKH Note: Formatting of this note might be d ifferent from the original. Count carbohydrates at meals and snacks. documented as of this encounter Visit Diagnoses Diagnosis COULTER (dyspnea on exertion) Other dyspnea and respiratory abnormalit y documented in this encounter Care Teams High Density Press Operator Relationship Specialty Start Date End Date Pita Giraldo MD PCP - General Family Practice 02/21/17 08/08/20 [address] [place] [address] documented as of this encounter
--- OUTSIDE RECORDS SUMMARY | 2022-04-16 08:07 | XMS_ITS | Encounter Summary ---
:1960 Author Organization [facility] Address [address] [address] Care Team Providers Name Role Phone Unavailable Primary Care Provider Unavailable Reason for Visit Reason Comments Refill metFORMIN (GLUCOPHAGE) 1000 MG tablet [Pharmacy Med Name: METFORMIN HCL 1,000 MG TABLET] Encounter Details Date Type Department Care Team Description 11/16/2020 Refill [facility] Pita Giraldo MD Refill (metFORMIN [address] [address] [address] (GLUCOPHAGE) 1000 MG [place], [place] [address] tablet [Pharmacy Med [id number] Name: METFORMIN HCL [phone] 1,000 MG TABLET]) Social History Tobacco Use [...] as of this encounter Nursing Notes Neel Mejia RN - 11/16/2020 9:05 AM CDT Further Assistance Needed on Refill from Clinician RN reviewed. Patient overdue for Qualifying visit. An office visit is overdue (performed 15 months ago, required every 12 months). -> Cr is overdue (performed over 15 months ago, required every 12 months) -> HBA1C is overdue (performed 15 months ago, required every 12 months) -> Cr is abnormal (1.5 mg/dL lies outside 0.73 mg/dL - 1.18 mg/dL) Last qualifying visit: 09/08/2019 (with PITA GIRALDO) Next scheduled visit: None Review pended order for accuracy. Sign if appropriate. Document if appointment is needed for furtherrefills. Route to care team to notify patient if needed. Requested Prescriptions Pending Prescriptions Disp Refills metFORMIN (GLUCOPHAGE) 1000 MG tablet [Pharmacy Med Name: METFORMIN HCL 1,000 MG TABLET] 180 Tablet0 Sig: TAKE 1 TABLET BY MOUTH TWO TIMES A DAY WITH MEALS. Interface, Out Surescripts Prov Query - 11/16/2020 8:50 AM CDT metFORMIN (GLUCOPHAGE) 1000 MG tablet [Pharmacy Med Name: METFORMIN HCL 1,000 MG TABLET] Medication started: 02/22/2017 Last ordered by PITA GIRALDO: 09/26/2020 (51 days ago) QTY: 180, Refills: 0, Sig: take 1 tablet by mouth two times a day with meals. (unchanged) -> An office visit is overdue (performed 15 months ago, required every 12 months). -> Cr is overdue (performed over 15 months ago, required every 12 months) -> HBA1C is overdue (performed 15 months ago, required every 12 months) -> Cr is abnormal (1.5 mg/dL lies outside 0.73 mg/dL - 1.18 mg/dL) Last qualifying visit: 09/08/2019 (with PITA GIRALDO) Next scheduled visit: None Cr: 1.5 mg/dL on 08/18/2019 HBA1C: 5.5 % on 09/08/2019 Powered by [employer] by [employer], Reference: [id number], 11/16/2020 8:50:39 AM CDT, Pool:JO REFILL ([id number]) Interface, Out [employer] Query - 11/16/2020 8:50 AM CDT The following lab order(s) may be associated with the Result Note below: HGB A1C Notes recorded by Pita Giraldo MD on 09/09/2019 at 8:41 AM CIRCUS SUPERVISOR hgA1C great follow up for DM in 6 months Interface, Out [employer] Query - 11/16/2020 8:50 AM CDT The following lab order(s) may be associated with the following Patient Result Comment (Entered by Terrence Hernandez MD at 08/25/2019 12:29 PM): RENAL FUNCTION PANEL The calcium is up [...] healthy Education (05/30/2017 ASHIA Crews, 4:29 PM CIRCUS SUPERVISOR) ASHLEY, CHEIKH Note: Formatting of this note might be d ifferent from the original. Count carbohydrates at meals and snacks. documented as of this encounter Visit Diagnoses Not on filedocumented in this encounter
--- OUTSIDE RECORDS SUMMARY | 2022-04-16 08:07 | XMS_ITS | Encounter Summary ---
:1960 Author Organization [facility] Address [address] [address] Care Team Providers Name Role Phone Pita Giraldo MD Primary Care Provider Reason for Visit Reason Comments Refill losartan (COZAAR) 25 MG tabl et [Pharmacy Med Name: LOSARTAN POTASSIUM 25 MG TAB] Encounter Details Date Type Department Care Team Description 09/22/2019 Refill [facility] Pita Giraldo M D Refill (losartan Medicine [address] (COZAAR) 25 MG tablet [address] [place] [address] [Pharmacy Med Name: [place], [place] [phone] (Wo rk) LOSARTAN POTASSIUM 25 [place] [address] TAB]) [phone] Social History Tobacco Use Types Packs/Day Years [...] documented as of this encounter Nursing Notes Interface, Out Surescripts Prov Query - 09/22/2019 2:09 AM CST losartan (COZAAR) 25 MG tablet [Pharmacy Med Name: LOSARTAN POTASSIUM 25 MG TAB] Medication started: 10/10/2013 Last ordered by EVA HERRING E: 08/26/2019 (27 days ago) QTY: 270, Refills: 3, Sig: take 3 tablets bymouth daily. (changed) -> The patient is requesting refills too soon, the current prescription is due to run out on 08/20/2020. -> The requested sig has changed from the last order. -> Cr is abnormal (1.5 mg/dL lies outside 0.73 mg/dL - 1.18 mg/dL) -> Refill x 12 months, qty: 90, refills: 3 (until due for a(n) Cr check and K check) Last qualifying visit: 09/08/2019 (with PITA GIRALDO) Next scheduled visit: None SBP: 168 mm Hg on 09/08/2019 DBP: 87 mm Hg on 09/08/2019 Cr: 1.5 mg/dL on 08/18/2019 K: 4.5 mEq/L on 08/18/2019 Powered by [employer], Reference: [id number], 09/22/2019 2:09:03 AM Jose WANG: JO REFILL ([id number]) GER PROTEIN documented in this encounter Plan of Treatment Not on filedocumented as of this encounter Goals Goal Patient Goal Associated Recent Patient-Stated? Author Type Problems Progress Eating Diabetes On track Kelin Lam healthy Education (05/30/2017 ASHIA Crews, 4:29 PM MANAGER PROTEIN) CHEIKH RAMIREZ Note: Formatting of this note might be d ifferent from the original. Count carbohydrates at meals and snacks. documented as of this encounter Visit Diagnoses Diagnosis Chronic kidney disease, stage III (moder ate) ([facility]) Chronic kidney disease, Stage III (moder ate) documented in this encounter Care Teams Tracer Lathe Set Up Operator Relationship Specialty Start Date End Date Pita Giraldo MD PCP - General Family Practice 02/21/17 08/08/20 [address] [place] [address] documented as of this encounter
--- OUTSIDE RECORDS SUMMARY | 2022-04-16 08:07 | XMS_ITS | Encounter Summary ---
:1960 Author Organization [facility] Address [address] [address] Care Team Providers Name Role Phone Sunny Giraldo MD Primary Care Provider Encounter Details Date Type Department Care Team Description 04/10/2019 Lab Visit [facility] Chronic kidney disease, [address] stage III (moderate) ([facility]) [place] [address] Social History Tobacco Use Types Packs/Day Years [...] on file documented as of this encounter Plan of Treatment Not on filedocumented as of this encounter Goals Goal Patient Goal Associated Recent Patient-Stated? Author Type Problems Progress Eating Diabetes On track No Genaro healthy Education (05/30/2017 ASHIA Crews, 4:29 PM CALCIMINER) ASHLEY, CHEIKH Note: Formatting of this note might be d ifferent from the original. Count carbohydrates at meals and snacks. documented as of this encounter Procedures Procedure Name Priority Date/Time Associated Diagnosis Comme nts RENAL FUNCTION Routine 04/10/2019 4:26 PM Chronic kidney Resul ts for this PANEL CDT disease, stage III procedure are in (moderate) (HRC) the results section. documented in this encounter Results (ABNORMAL) Renal Function Panel - in 1 month (04/10/2019 4:26 PM CDT) [facility] Method Time Signature Sodium 139 136 - 145 04/10/2019 [facility] mmol/L 8:56 PM CDT LABORATORY Potassium 3.9 3.5 - 5.1 04/10/2019 [facility] mmol/L 8:56 PM CDT LABORATORY Chloride 102 98 - 109 04/10/2019 [facility] mmol/L 8:56 PM CDT LABORATORY CO2 26 20 - 29 04/10/2019 [facility] mmol/L 8:56 PM CDT LABORATORY Anion Gap 11 7 - 16 04/10/2019 [facility] mmol/L 8:56 PM CDT LABORATORY Calcium 9.6 8.4 - 10.4 04/10/2019 [facility] mg/dL 8:56 PM CDT LABORATORY BUN 19 7 - 26 04/10/2019 [facility] mg/dL 8:56 PM CDT LABORATORY Creatinine 1.60 (H) 0.73 - 04/10/2019 [facility] 1.18 mg/dL 8:56 PM CDT LABORATORY GFR, Estimated 47 (L) >60 04/10/2019 [facility] mL/min/1.7 8:56 PM CDT LABORATORY 3m2 GFR, Est If 55 (L) >60 04/10/2019 [facility] mL/min/1.7 8:56 PM CDT LABORATORY Malian 3m2 Albumin 4.3 3.5 - 5.0 04/10/2019 [facility] g/dL 8:56 PM CDT LABORATORY Phosphorus 2.9 2.3 - 4.7 04/10/2019 [facility] mg/dL 8:56 PM CDT LABORATORY Glucose 94 70 - 100 04/10/2019 [facility] mg/dL 8:56 PM CDT LABORATORY Comment: The given reference range is fo r the fasting state. Non-fasting reference range for glucose is 70 - 180 mg/dL. Hours Fasting Unknown 04/10/2019 8:56 PM CDT [facility] Specimen Anatomical Collection Method / Collection Time Recei katherine Time (Source) Location / Volume Laterality Blood Venipuncture / 04/10/2019 4:26 04/10/2019 4:29 Unknown PM CDT PM CDT Narrative [facility] - 04/10/2019 8:56 PM CDT The National Kidney Disease Education Pr torieram suggests measuring Cystatin C in patients with eGFRcrea of 45 to 59 ml/mi n/1.73^2 who do not have other markers of kidney damage (i.e. elevated urine Album in/Creatinine Ratio or a prior Cystatin C confirming the presence of chronic kidne y disease). Terrence Hernandez MD LAB_1 Performing Organization Address City/State/ZIP Code Phon e Number [facility] [address] [place] [address] [facility] [address] [facility] [place] [address], [phone] [facility] documented in this encounter Visit Diagnoses Diagnosis Chronic kidney disease, stage III (moder ate) ([facility]) Chronic kidney disease, Stage III (moder ate) documented in this encounter Care Teams Donor Support Technician Relationship Specialty Start Date End Date Sunny Giraldo MD PCP - General Family Practice 02/21/17 08/08/20 [address] [place] [address] documented as of this encounter
--- OUTSIDE RECORDS SUMMARY | 2022-04-16 08:07 | XMS_ITS | Clinical Summary ---
:1960 Author Organization [employer] Address [address] [facility] [address] Care Team Providers Name Role Phone Unavailable Primary Care Provider Unavailable Source Comments You are receiving this document as you are listed as the primary care provider,follow-up provider, or the patient has been referred to you for consultation.This is in compliance with the Medicare and Medicaid EHR Incentive Program,which states Providers who transition their patient to another setting of careor provider of care or refers their patient to another provider of care shouldprovide summarycare record for each transition of care or referral. [employer] Allergies Active Allergy Reactions Severity Noted Date Comments Codeine 06/05/2005 PN: LW Reaction : Nausea Lisinopril Throat Irritation 09/21/2013 Medications Medication Sig Dispensed Refills Start Date End Date Status omeprazole (PRILOSEC) Take 20 mg by 0 Active 20 MG capsule mouth daily. Take 1 hour before a meal. lancets (ACCU-CHEK Use 1 Each to test 102 Each 02/26/2017 Active FASTCLIX)Indications: three times a day. Uncontrolled type 2 Use as directed to diabetes mellitus with check blood sugars hyperglycemia, without long-term current use of insulin (HRC) blood glucose Use 1 Strip to 100 Strip 02/26/2017 Active (ACCU-CHEK GUIDE) test test three times a stripIndications: day. check blood Uncontrolled type 2 sugar before diabetes mellitus with breakfast, before hyperglycemia, without & 1 hour after long-term current use start of largest of insulin (HRC) meal Blood Glucose HOLD RX, only fill 1 Kit 0 01/27/2019 Active Monitoring Suppl if alternate (ACCU-CHEK GUIDE) supplies not w/Device covered by KITIndications: insurance. If not Uncontrolled type 2 covered, diabetes mellitus with substitute hyperglycemia, without appropriate meter. long-term current use Use to check blood of insulin ([facility]) sugars. chlorthalidone TAKE 1 TABLET BY 90 Tablet 0 03/04/2019 Active (HYGROTON) 25 MG MOUTH DAILY. tabletIndications: Chronic kidney disease, stage III (moderate) (HRC) Additional Information Patient not taking. Reported on 09/08/2019 chlorthalidone (HYGROTON) 25 MG Take 1 Tablet by 90 Tablet 3 0 03/03/2019 Active tabletIndications: Chronic kidney mouth daily. disease, stage III (moderate) (HRC) Additional Information Patient not taking. Reported on 09/08/2019 losartan (COZAAR) 25 MG Take 3 Tablets by 270 Tablet 3 020 Active tabletIndications: Chronic mouth daily. kidney disease, stage III (moderate) (HRC) VENTOLIN HFA 108 (90 Base) INHALE 1 TO 2 PUFFS 1 Each 0 02/2020 Active MCG/ACT inhalerIndications: COULTER BY MOUTH EVERY 4 (dyspnea on exertion) HOURS NEEDED atorvastatin (LIPITOR) 20 MG TAKE 1 TAB BY MOUTH 90 Tablet 0 0 08/17/2020 Active tablet DAILY. metFORMIN (GLUCOPHAGE) 1000 MG TAKE 1 TABLET BY 180 Tablet 0 0 09/26/2020 Active tablet MOUTH TWO TIMES A DAY WITH MEALS. Active Problems Problem Noted Date Type 2 diabetes mellitus without complication, without long-term current 10/29/2017 use of insulin Chronic kidney disease (CKD), stage III (moderate) 12/2010 Esophageal reflux 05/19/2008 Overview: Gastroesophageal Reflux Disease Hyperlipidemia 07/28/2007 Chronic nonalcoholic liver disease 07/28/2007 Overview: Fatty Liver Essential hypertension 12/26/2002 Overview: Hypertension Immunizations Name Administration Dates Next Due Flu Vac Preserv Free (3+yrs) 05/19/2008, 06/06/2007 Influenza (Fluzone 0.25, 6-35 mos) 05/28/2013 Influenza IIV4 (Quadrivalent) 0.5mL 04/25/2019, 05/06/2018, 04/24/2017, (65003) 05/11/2016, 06/14/2015, 05/28/2013 Influenza, Unspecified Formulation 05/19/2008, 06/06/2007 PCV13 (Prevnar) 10/26/2017 PPSV23 (Pneumovax) 05/06/2018 TDAP (BOOSTRIX) 10/13/2015 Td 03/10/2005 Zoster RZV (Shingrix) 04/25/2019, 10/26/2017 Family History Medical History Relation Name Comments Cancer Father Heart Disease Mother Hypertension Mother Relation Name Status Comments Father Mother Social History Tobacco Use Types Packs/Day Years [...] Assigned at Date Recorded Not on file Last Filed Vital Signs Vital Sign Reading Time Taken Comments Blood Pressure 168/87 09/08/2019 5:44 PM BINDER COVERSTITCH Pulse 52 09/08/2019 5:44 PM BINDER COVERSTITCH Temperature 36.8 ??C (98.2 ??F) 04/25/2019 9:10 AM CDT Respiratory Rate 16 04/25/2019 9:10 AM CDT Oxygen Saturation - - Inhaled Oxygen Concentration - - Weight 85.4 kg (188 lb 3.2 oz) 09/08/2019 5:44 PM BINDER COVERSTITCH Height 184.2 cm (6' 0.5) 02/25/2018 4:20 PM CDT Body Mass Index 25.17 02/25/2018 4:20 PM CDT Plan of Treatment Health Maintenance Due Date Last Done Comments Diabetes: Eye Exam 1960 PSA Screening Discussion 1960 COVID-19 Vaccine (#1) 1960 HepA (1 of 2 - Risk 2-dose 1963 series) HIV Screening (Preventive 1978 Services) Adult Preventive Visit 1980 HepB (1) 1981 FIT Colon Cancer Screening 10/22/2016 10/23/2015 (Completed ) Diabetes: Foot Exam 03/15/2018 03/15/2017 (Completed) Diabetes: HGBA1C 12/07/2019 09/08/2019, 04/25/2019, 07/07/2018, Additional history exists Diabetes: Urine 02/20/2020 02/19/2019, 07/07/2018, Microalbumin 01/28/2018, Additional history exists Diabetes: Creatinine 08/18/2020 08/18/2019, 04/10/2019, 02/19/2019, Additional history exists Influenza (#1) 2022 05/10/2020, 04/25/2019, 05/06/2018, Additional history exists Diabetes: Lipid Panel 04/25/2024 04/25/2019, 01/28/2018, 10/26/2017, Additional history exists DTaP/Tdap/Td (2 - Tdap) 10/12/2025 10/13/2015, 03/10/2005 Pneumococcal (3 - PPSV23) 2027 05/06/2018, 10/26/2017 Hep C Screening (Preventive Completed 01/19/2016, 07/30/19 Services) Zoster/Shingles Completed 04/25/2019, 10/26/2017 Hib Aged Out No longer eligib le based on patient 's age to complete this topic IPV (Polio) Aged Out No longer eligib le based on patient 's age to complete this topic MCV4 Aged Out No longer eligib le based on patient 's age to complete this topic Goals Goal Patient Goal Associated Recent Patient-Stated? Author Type Problems Progress Eating Diabetes On track No Genaro healthy Education (05/30/2017 ASHIA Crews, 4:29 PM BINDER COVERSTITCH) ASHLEY, CHEIKH Note: Formatting of this note might be d ifferent from the original. Count carbohydrates at meals and snacks. Insurance Payer Benefit Plan / Subscriber ID Effective Dates Phone Addre ss Type Group [facility] [id number] 2015-Present Commercial INSURED (Work) [id number] Bryce Mosley Personal/Family Self 1960 [address] [phone] [place] (Work) [id number] Bryce Mosley Personal/Family Self 1960 [address] [phone] [place] (Work) [id number] Veronica Mosley Personal/Family Self 02/[birth year]/1964 2034 [address] [facility] (Home) [place], [place] [phone] (Work)
--- OUTSIDE RECORDS SUMMARY | 2022-04-16 08:07 | XMS_ITS | Encounter Summary ---
:1960 Author Organization [facility] Address [address] [address] Care Team Providers Name Role Phone Pita Giraldo MD Primary Care Provider Reason for Visit Reason Comments Refill metFORMIN (GLUCOPHAGE) 1000 MG tablet [Pharmacy Med Name: METFORMIN HCL 1,000 MG TABLET] Encounter Details Date Type Department Care Team Description 04/05/2020 Refill [facility] Pita Giraldo M D Refill (metFORMIN Medicine [address] (GLUCOPHAGE) [address] [place] [address] tablet [Pharmacy Med [place], [place] [phone] (Wo rk) Name: METFORMIN HCL [address] 1,000 MG TABLET]) [phone] Social History Tobacco Use Types Packs/Day Years [...] encounter Nursing Notes Neel Mccain RN - 04/05/2020 8:08 AM CDT Renewed medication per medication refill protocol. Requested Prescriptions Pending Prescriptions Disp Refills metFORMIN (GLUCOPHAGE) 1000 MG tablet [Pharmacy Med Name: METFORMIN HCL 1,000 MG TABLET] 180 Tablet1 Sig: TAKE 1 TABLET BY MOUTH TWO TIMES A DAY WITH MEALS. Interface, Out Surescripts Prov Query - 04/05/2020 12:40 AM CDT metFORMIN (GLUCOPHAGE) 1000 MG tablet [Pharmacy Med Name: METFORMIN HCL 1,000 MG TABLET] Medication started: 02/22/2017 Last ordered by PITA GIRALDO: 04/25/2019 (346 days ago) QTY: 180, Refills: 3, Sig: take 1 tablet by mouth two times a day with meals. (unchanged) -> Cr is abnormal (1.5 mg/dL lies outside 0.73 mg/dL - 1.18 mg/dL) -> Refill x 6 months, qty: 180, refills: 1 (until due for a(n) Cr check) Last qualifying visit: 09/08/2019 (with PITA GIRALDO) Next scheduled visit: None Cr: 1.5 mg/dL on 08/18/2019 HBA1C: 5.5 % on 09/08/2019 Powered by [employer]ann[employer], Reference: [id number], 04/05/2020 12:40:08 AM CDT, Jose: JO REFILL ([id number]) Electronically signed by Interface, Out [employer] [employer] [facility] Prov Query at 04/05/2020 8:08 AM CDT Interface, Out Surescripts Prov Query - 04/05/2020 12:40 AM CDT The following lab order(s) may be associated with the Result Note below: HGB A1C Notes recorded by Pita Giraldo MD on 09/09/2019 at 8:41 AM CDL SERVICE TECHNICIAN hgA1C great follow up for DM in 6 months Interface, Out [facility] Prov Query - 04/05/2020 12:40 AM CDT The following lab order(s) may [...] healthy Education (05/30/2017 ASHIA Crews, 4:29 PM CDL SERVICE TECHNICIAN) ASHLEY, CHEIKH Note: Formatting of this note might be d ifferent from the original. Count carbohydrates at meals and snacks. documented as of this encounter Visit Diagnoses Not on filedocumented in this encounter Care Teams Farmworker Fur Relationship Specialty Start Date End Date Pita Giraldo MD PCP - General Family Practice 02/21/17 08/08/20 [address] [place] [address] documented as of this encounter
--- OUTSIDE RECORDS SUMMARY | 2022-04-16 08:07 | XMS_ITS | Encounter Summary ---
:1960 Author Organization [facility] Address [address] [facility] [place] [address] Care Team Providers Name Role Phone Unavailable Primary Care Provider Unavailable Reason for Visit Reason Comments Refill VENTOLIN HFA 108 (90 Base) M CG/ACT inhaler [Pharmacy Med Name: VENTOLIN HFA 90 MCG INHALER] Encounter Details Date Type Department Care Team Description 01/24/2021 Refill [facility] Pita Giraldo MD Refill (VENTOLIN HFA [address] (90 Base) MCG/ACT [place], [place] [address] inhaler [Pharmacy Med [id number] Name: VENTOLIN HFA 90 MCG INHAL ER]) Social History Tobacco Use Types Packs/Day Years [...] documented as of this encounter Nursing Notes Lisa Mcnulty, POLICY WRITER SALES - 01/26/2021 3:30 PM CDT Made second attempt to contact patient. Was able to leave a detailed voicemail. Letter was not sent.Closing encounter. Lisa Mcnulty CMA - 01/25/2021 6:51 PM CDT (Frontline/PSC: If caller has no additional questions after reading below message, update note and close encounter) Left message for patient to call back. Frontline/[facility] (PSC), please inform patientof below message. Pradeep Schmitt PA-C - 01/25/2021 6:41 PM CDT Needs office visit Shakila Mcgill - 01/25/2021 9:38 AM CDT Medication Refill - Overdue for Visit Called patient, was: Successful in reaching patient We recently received a refill request for one of your medications. In order to ensure your medication is safe and effective, your clinician needs to see you at least yearly for an office visit. May I help you schedule that office visit? Patient is due for a(n): office visit Patient scheduled appointment on: February 01 Do you have enough medication to last until your appointment? Yes Patient advised refill will be addressed at upcoming visit. Frontline Action: Remove pended medication and Sign Visit or if unable, Route as low priority to Refill Vamsi Admin-PN Pool ([id number]) Neel Mejia RN - 01/24/2021 10:00 AM CDT Further Assistance Needed on Refill from [employer] Sales Consultant Patient is overdue for Office visit. An office visit is overdue (performed 17 months ago, required every 12 months). ? Last qualifying visit: 09/08/2019 (with PITA GIRALDO) ? Next scheduled visit: None ? Please call patient to schedule a Office/Video Visit and document using .KEVON. After attemptingto schedule patient: Please route to: Pita Giraldo Requested Prescriptions Pending Prescriptions Disp Refills ??? VENTOLIN HFA 108 (90 Base) MCG/ACT inhaler [Pharmacy Med Name: VENTOLIN HFA 90 MCG INHALER] 1 Each 0 Sig: INHALE 1 TO 2 PUFFS BY MOUTH EVERY 4 HOURS NEEDED Interface, Out Surescripts Prov Query - 01/24/2021 9:16 AM CDT VENTOLIN HFA 108 (90 Base) MCG/ACT inhaler [Pharmacy Med Name: VENTOLIN HFA 90 MCG INHALER] Medication started: 04/25/2019 Last ordered by PITA GIRALDO: 06/28/2020 (210 days ago) QTY: 1, Refills: 0, Sig: inhale 1 to 2 puffsby mouth every 4 hours as needed (unchanged) -> An office visit is overdue (performed 17 months ago, required every 12 months). Last qualifying visit: 09/08/2019 (with PITA GIRALDO) Next scheduled visit: None Powered by [employer]buy by [employer], Reference: [id number], 01/24/2021 9:16:53 AM CDT, Pool:JO ARELLANO ([id number]) documented in this encounter Plan of Treatment Not on filedocumented as of this encounter Goals Goal Patient Goal Associated Recent Patient-Stated? Author Type Problems Progress Eating Diabetes On track No Genaro healthy Education (05/30/2017 ASHIA Crews, 4:29 PM RESEARCH SPECIALIST) LD, CHEIKH Note: Formatting of this note might be d ifferent from the original. Count carbohydrates at meals and snacks. documented as of this encounter Visit Diagnoses Diagnosis COULTER (dyspnea on exertion) Other dyspnea and respiratory abnormalit y documented in this encounter
--- OUTSIDE RECORDS SUMMARY | 2022-04-16 08:07 | XMS_ITS | Encounter Summary ---
:1960 Author Organization [employer] Address [address] [place] [address] Care Team Providers Name Role Phone Sunny Giraldo MD Primary Care Provider Encounter Details Date Type Department Care Team Description 04/25/2019 Lab Visit [facility] Type 2 diabetes mellitus [address] without complication, [place] [address] without long-term current [phone] use of insulin (HRC) Social History Tobacco [...] Progress Notes Sunny Giraldo MD - 04/25/2019 10:00 AM CDT Good cholesterol Low execise ,for lab follow up in a year if concern any time. documented in this encounter Plan of Treatment Not on filedocumented as of this encounter Goals Goal Patient Goal Associated Recent Patient-Stated? Author Type Problems Progress Eating Diabetes On track No Genaro healthy Education (05/30/2017 ASHIA Crews, 4:29 PM UPPER CUTTER OUT) CHEIKH RAMIREZ Note: Formatting of this note might be d ifferent from the original. Count carbohydrates at meals and snacks. documented as of this encounter Procedures Procedure Name Priority Date/Time Associated Diagnosis Comme nts LIPID PANEL AND Routine 04/25/2019 10:08 AM Type 2 diabetes Re sults for this DIRECT LDL(IF CDT mellitus without procedure are in NEEDED) complication, the results without long-term section. current use of insulin (HRC) HGB A1C Routine 04/25/2019 10:08 AM Type 2 diabetes Resul ts for this CDT mellitus without procedure a re in complication, the results without long-term section. current use of insulin (HRC) documented in this encounter Results Hgb A1C (04/25/2019 10:08 AM CDT) athologist Signature Hemoglobin A1C 5.6 <=5.6 % 04/26/2019 [facility] 10:41 AM CDT LABORATORY Specimen Anatomical Collection Method / Collection Time Recei katherine Time (Source) Location / Volume Laterality Blood Venipuncture / 04/25/2019 10:08 9 Unknown AM CDT 10:08 AM CDT Sunny Giraldo MD LAB_1 Performing Organization Address City/State/ZIP Code Phon e Number [facility] [address] [place] [address] (ABNORMAL) Lipid Panel - LDLD If Trig High (04/25/2019 10:08 AM CDT) [facility] Method Time Signature Cholesterol 146 0 - 199 04/25/2019 [facility] mg/dL 3:53 PM CDT LABORATORY Triglyceride 118 <=149 04/25/2019 [facility] mg/dL 3:53 PM CDT LABORATORY HDL Cholesterol 35 (L) >=40 mg/dL 04/25/2019 [facility] 3:53 PM CDT LABORATORY LDL, Calculated 87 <130 mg/dL 04/25/2019 [facility] 3:53 PM CDT LABORATORY Non HDL Chol, 111 <=159 04/25/2019 [facility] Calculated mg/dL 3:53 PM CDT LABORATORY Cholesterol/HDL 4.2 04/25/2019 [facility] Ratio 3:53 PM CDT LABORATORY Hours Fasting 15 04/25/2019 [facility] 3:53 PM CDT Specimen Anatomical Collection Method / Collection Time Recei katherine Time (Source) Location / Volume Laterality Blood Venipuncture / 04/25/2019 10:08 9 Unknown AM CDT 10:08 AM CDT Sunny Giraldo MD LAB_1 Performing Organization Address City/State/ZIP Code Phon e Number [facility] [address] [place] [address] [facility] [address] [place] [address], [phone] [facility] documented in this encounter Visit Diagnoses Diagnosis Type 2 diabetes mellitus without complic ation, without long-term current use of insulin (HRC) documented in this encounter Care Teams Librarian Special Library Relationship Specialty Start Date End Date Sunny Giraldo MD PCP - General Family Practice 02/21/17 08/08/20 [address] [place] [address] documented as of this encounter
--- OUTSIDE RECORDS SUMMARY | 2022-04-16 08:07 | XMS_ITS | Encounter Summary ---
:1960 Author Organization [facility] Address [address], [place] [address] Care Team Providers Name Role Phone Sunny Giraldo MD Primary Care Provider Encounter Details Date Type Department Care Team Description 08/18/2019 Lab Visit [facility] CKD (chronic kidney [address] disease) stage 3, GFR 30-59 [place] [address] ml/min (HRC) [phone] Social History Tobacco Use Types Packs/Day Years [...] healthy Education (05/30/2017 ASHIA Crews, 4:29 PM FINANCIAL ANALYST) ASHLEY, CHEIKH Note: Formatting of this note might be d ifferent from the original. Count carbohydrates at meals and snacks. documented as of this encounter Procedures Procedure Name Priority Date/Time Associated Diagnosis Comme nts RENAL FUNCTION Routine 08/18/2019 11:20 AM CKD (chronic kidney Results for this PANEL FINANCIAL ANALYST disease) stage 3, procedure are in GFR 30-59 ml/min the results (HRC) section. documented in this encounter Results (ABNORMAL) Renal Function Panel - in 4 months (08/18/2019 11:20 AM FINANCIAL ANALYST) [facility] Method Time Signature Sodium 140 136 - 145 08/18/2019 [facility] mmol/L 6:00 PM FINANCIAL ANALYST LABORATORY Potassium 4.5 3.5 - 5.1 08/18/2019 [facility] mmol/L 6:00 PM FINANCIAL ANALYST LABORATORY Chloride 101 98 - 109 08/18/2019 [place] mmol/L 6:00 PM FINANCIAL ANALYST LABORATORY CO2 25 20 - 29 08/18/2019 [place] mmol/L 6:00 PM FINANCIAL ANALYST LABORATORY Anion Gap 14 7 - 16 08/18/2019 [place] mmol/L 6:00 PM FINANCIAL ANALYST LABORATORY Calcium 10.6 (H) 8.4 - 10.4 08/18/2019 [place] mg/dL 6:00 PM FINANCIAL ANALYST LABORATORY BUN 20 7 - 26 08/18/2019 [place] mg/dL 6:00 PM FINANCIAL ANALYST LABORATORY Creatinine 1.50 (H) 0.73 - 08/18/2019 [place] 1.18 mg/dL 6:00 PM FINANCIAL ANALYST LABORATORY GFR, Estimated 51 (L) >60 08/18/2019 [place] mL/min/1.7 6:00 PM FINANCIAL ANALYST LABORATORY 3m2 GFR, Est If 59 (L) >60 08/18/2019 [facility] mL/min/1.7 6:00 PM FINANCIAL ANALYST LABORATORY Indonesian 3m2 Albumin 4.8 3.5 - 5.0 08/18/2019 [facility] g/dL 6:00 PM FINANCIAL ANALYST LABORATORY Phosphorus 4.1 2.3 - 4.7 08/18/2019 [facility] mg/dL 6:00 PM FINANCIAL ANALYST LABORATORY Glucose 99 70 - 100 08/18/2019 [facility] mg/dL 6:00 PM FINANCIAL ANALYST LABORATORY Comment: The given reference range is fo r the fasting state. Non-fasting reference range for glucose is 70 - 180 mg/dL. Hours Fasting 12 08/18/2019 6:00 PM FINANCIAL ANALYST [facility] Specimen Anatomical Collection Method / Collection Time Recei katherine Time (Source) Location / Volume Laterality Blood Venipuncture / 08/18/2019 11:20 0 Unknown AM FINANCIAL ANALYST 11:21 AM FINANCIAL ANALYST Narrative [facility] - 08/18/2019 6:00 PM FINANCIAL ANALYST The National Kidney Disease Education Pr ogram suggests measuring Cystatin C in patients with eGFRcrea of 45 to 59 ml/mi n/1.73^2 who do not have other markers of kidney damage (i.e. elevated urine Album in/Creatinine Ratio or a prior Cystatin C confirming the presence of chronic kidne y disease). Terrence Hernandez MD LAB_1 Performing Organization Address City/State/ZIP Code Phon e Number [facility] [address] [place] [address] [facility] [address] [place] [address], [phone] [facility] documented in this encounter Visit Diagnoses Diagnosis CKD (chronic kidney disease) stage 3, GF R 30-59 ml/min (HRC) Chronic kidney disease, Stage III (moder ate) documented in this encounter Care Teams Custom Designer Relationship Specialty Start Date End Date Sunny Giraldo MD PCP - General Family Practice 02/21/17 08/08/20 [address] [place] [address] documented as of this encounter
--- OUTSIDE RECORDS SUMMARY | 2022-04-16 08:07 | XMS_ITS | Encounter Summary ---
:1960 Author Organization [facility] Address [address] [address] Care Team Providers Name Role Phone Pita Giraldo MD Primary Care Provider Reason for Visit Reason Comments Refill VENTOLIN HFA 108 (90 Base) M CG/ACT inhaler [Pharmacy Med Name: VENTOLIN HFA 90 MCG INHALER] Encounter Details Date Type Department Care Team Description 06/28/2020 Refill [facility] Pita Giraldo MD Refill (VENTOLIN HFA 108 [address] (90 Base) MCG/ACT [place], [place] [address] inhaler [Pharmacy Med [address] Name: VENTOLIN HFA 90 [phone] MCG INHAL ER]) Social History Tobacco Use [...] documented as of this encounter Nursing Notes Geovanna Mcelroy CMA - 06/29/2020 2:06 PM CST Medication Refill - Overdue for Visit Called patient, was: Unable to reach patient 1st call attempted. Left message to call back. PSC Action: Patient needs to schedule an appointment for their medication refill. Schedule and verify if they have enough medication until their next appointment. If additional medication is needed, route this encounter high priority to Refill Pool (P [id number]) CTOR OF ENTERPRISE ARCHITECTURE Sydnee Martines, RN - 06/28/2020 9:35 PM CST VISIT APPOINTMENT NEEDED Please notify patient to schedule an appointment within 90 days. Refill has been approved, please close encounter after patient has been notified of need for appointment. Requested Prescriptions Pending Prescriptions Disp Refills ??? VENTOLIN HFA 108 (90 Base) MCG/ACT inhaler [Pharmacy Med Name: VENTOLIN HFA 90 MCG INHALER] 1 Each 0 Sig: INHALE 1 TO 2 PUFFS BY MOUTH EVERY 4 HOURS NEEDED CTOR OF ENTERPRISE ARCHITECTURE Cedrick, Out Surescripts Prov Query - 06/28/2020 5:04 PM CST VENTOLIN HFA 108 (90 Base) MCG/ACT inhaler [Pharmacy Med Name: VENTOLIN HFA 90 MCG INHALER] Medication started: 04/25/2019 Last ordered by PITA GRIALDO: 04/25/2019 (430 days ago) QTY: 1, Refills: 0, Sig: inhale 1-2 puffs every 4 hours as needed. (changed but equivalent) -> Refill x 3 months (until due for an office visit) -> Calculate the quantity and number of refills manually. Last qualifying visit: 09/08/2019 (with PITA GIRALDO) Next scheduled visit: None Powered by [email or web address], Reference: [id number], 06/28/2020 5:04:04 PM DIRECTOR OF ENTERPRISE ARCHITECTURE, Jose: JO ARELLANO ([id number]) CTOR OF ENTERPRISE ARCHITECTURE documented in this encounter Plan of Treatment Not on filedocumented as of this encounter Goals Goal Patient Goal Associated Recent Patient-Stated? Author Type Problems Progress Eating Diabetes On track No Genaro, healthy Education (05/30/2017 ASHIA Crews, 4:29 PM DIRECTOR OF ENTERPRISE ARCHITECTURE) ASHLEY, CHEIKH Note: Formatting of this note might be d ifferent from the original. Count carbohydrates at meals and snacks. documented as of this encounter Visit Diagnoses Diagnosis COULTER (dyspnea on exertion) Other dyspnea and respiratory abnormalit y documented in this encounter Care Teams Food Service Cashier Relationship Specialty Start Date End Date Pita Giraldo MD PCP - General Family Practice 02/21/17 08/08/20 [address] [place] [address] documented as of this encounter
--- OUTSIDE RECORDS SUMMARY | 2022-04-16 08:07 | XMS_ITS | Encounter Summary ---
:1960 Author Organization [employer] Address [address] [address] Care Team Providers Name Role Phone Sunny Giraldo MD Primary Care Provider Reason for Visit Reason Comments BLOOD PRESSURE, HIGH Encounter Details Date Type Department Care Team Description 09/09/2019 Telephone [facility] 3931 Newton Hernandez MD BLOOD PRESSURE, HIGH Nephrology [address] [facility] [address] [facility] [address] [place] [address] [phone] (Wo rk) Social History Tobacco Use Types [...] documented as of this encounter Nursing Notes Terrence Hernandez MD - 09/09/2019 4:15 PM CST The likelihood is he is still working off the excess salt he had while in [place] and from stopping the chlorthalidone. The urination should get better over the next week. Let's just see how he feels byMonday. If his nocturia isn't better and the BPs don't settle down then I'll have to add a differentBP med. LITION CRANE OPERATOR Asia Tejada, LANEY - 09/09/2019 2:15 PM CST Pt's spouse called, said we can reply to pt via [employer]. Said pt was directed to contact nephrology d/t high BP at PCP visit yesterday 168/87 and low HR 52. No other BP results from past few weeks (pt was on vacation). On 08/26/19 pt stopped chlorthalidone and increased losartan to 75 mg. Spouse reported pt has had headache and dizziness since, med changed. She thinks he has also had increased urination. Pt has bloating but spouse is unsure where. She said pt has no shortness of breath. LITION CRANE OPERATOR documented in this encounter Plan of Treatment Not on filedocumented as of this encounter Goals Goal Patient Goal Associated Recent Patient-Stated? Author Type Problems Progress Eating Diabetes On track No Genaro healthy Education (05/30/2017 ASHIA Crews, 4:29 PM DEMOLITION CRANE OPERATOR) CHEIKH RAMIREZ Note: Formatting of this note might be d ifferent from the original. Count carbohydrates at meals and snacks. documented as of this encounter Visit Diagnoses Not on filedocumented in this encounter Care Teams Front Desk Coordinator Relationship Specialty Start Date End Date Sunny Giraldo MD PCP - General Family Practice 02/21/17 08/08/20 [address] [place] [address] documented as of this encounter
--- OUTSIDE RECORDS SUMMARY | 2022-04-16 08:07 | XMS_ITS | Encounter Summary ---
:1960 Author Organization [employer] Address [address] [place] [address] Care Team Providers Name Role Phone Sunny Giraldo MD Primary Care Provider Encounter Details Date Type Department Care Team Description 04/14/2019 Notes/Orders Specialty Center 3931 Newton Hernandez MD CKD (chronic kidney Nephrology [address] disease) stage 3, GFR [facility] [address] 30-59 ml/min (HRC) [place], [place] (P rimary Dx) [phone] (Wo rk) Social History Tobacco Use Types [...] healthy Education (05/30/2017 ASHIA Crews, 4:29 PM DOUBLE NEEDLE OPERATOR) CHEIKH RAMIREZ Note: Formatting of this note might be d ifferent from the original. Count carbohydrates at meals and snacks. documented as of this encounter Results (ABNORMAL) Renal Function Panel - in 4 months (08/18/2019 11:20 AM DOUBLE NEEDLE OPERATOR) [facility] Method Time Signature Sodium 140 136 - 145 08/18/2019 [facility] mmol/L 6:00 PM DOUBLE NEEDLE OPERATOR [facility] Potassium 4.5 3.5 - 5.1 08/18/2019 [facility] mmol/L 6:00 PM DOUBLE NEEDLE OPERATOR [facility] Chloride 101 98 - 109 08/18/2019 [facility] mmol/L 6:00 PM DOUBLE NEEDLE OPERATOR [facility] CO2 25 20 - 29 08/18/2019 [facility] mmol/L 6:00 PM DOUBLE NEEDLE OPERATOR [facility] Anion Gap 14 7 - 16 08/18/2019 [facility] mmol/L 6:00 PM DOUBLE NEEDLE OPERATOR [facility] Calcium 10.6 (H) 8.4 - 10.4 08/18/2019 [facility] mg/dL 6:00 PM DOUBLE NEEDLE OPERATOR [facility] BUN 20 7 - 26 08/18/2019 [facility] mg/dL 6:00 PM DOUBLE NEEDLE OPERATOR [facility] Creatinine 1.50 (H) 0.73 - 08/18/2019 [facility] 1.18 mg/dL 6:00 PM DOUBLE NEEDLE OPERATOR [facility] GFR, Estimated 51 (L) >60 08/18/2019 [facility] mL/min/1.7 6:00 PM DOUBLE NEEDLE OPERATOR [facility] 3m2 GFR, Est If 59 (L) >60 08/18/2019 [facility] mL/min/1.7 6:00 PM DOUBLE NEEDLE OPERATOR LAB[facility]ORY [place] 3m2 Albumin 4.8 3.5 - 5.0 08/18/2019 [facility] g/dL 6:00 PM DOUBLE NEEDLE OPERATOR [facility] Phosphorus 4.1 2.3 - 4.7 08/18/2019 [facility] mg/dL 6:00 PM DOUBLE NEEDLE OPERATOR [facility] Glucose 99 70 - 100 08/18/2019 [facility] mg/dL 6:00 PM DOUBLE NEEDLE OPERATOR [facility] Comment: The given reference range is fo r the fasting state. Non-fasting reference range for glucose is 70 - 180 mg/dL. Hours Fasting 12 08/18/2019 6:00 PM DOUBLE NEEDLE OPERATOR [facility] Specimen Anatomical Collection Method / Collection Time Recei katherine Time (Source) Location / Volume Laterality Blood Venipuncture / 08/18/2019 11:20 0 Unknown AM DOUBLE NEEDLE OPERATOR 11:21 AM DOUBLE NEEDLE OPERATOR Narrative [facility] - 08/18/2019 6:00 PM DOUBLE NEEDLE OPERATOR The National Kidney Disease Education Pr ogram suggests measuring Cystatin C in patients with eGFRcrea of 45 to 59 ml/mi n/1.73^2 who do not have other markers of kidney damage (i.e. elevated urine Album in/Creatinine Ratio or a prior Cystatin C confirming the presence of chronic kidne y disease). Terrence Hernandez MD LAB_1 Performing Organization Address City/State/ZIP Code Phon e Number [facility] [address] [place] [address] [facility] [address] [place] [address], [facility] documented in this encounter Visit Diagnoses Diagnosis CKD (chronic kidney disease) stage 3, GF R 30-59 ml/min (HRC) - Primary Chronic kidney disease, Stage III (moder ate) documented in this encounter Care Teams Shipping And Receiving Supervisor Relationship Specialty Start Date End Date Sunny Giraldo MD PCP - General Family Practice 02/21/17 08/08/20 [address] [place] [address] documented as of this encounter
--- OUTSIDE RECORDS SUMMARY | 2022-04-16 08:07 | XMS_ITS | Encounter Summary ---
:1960 Author Organization [employer] Address [address], [place] [address] Care Team Providers Name Role Phone Pita Giraldo MD Primary Care Provider Reason for Visit Reason Comments Refill atorvastatin (LIPITOR) 20 MG tablet Encounter Details Date Type Department Care Team Description 09/04/2019 Refill [facility] Pita Giraldo M D Refill (atorvastatin Medicine [address] (LIPITOR) 20 MG tablet) [address] [place] [address] [place], [place] [phone] (Wo rk) [address] [phone] Social History Tobacco Use Types Packs/Day Years [...] Notes Interface, Out Surescripts Prov Query - 09/04/2019 8:21 AM CST atorvastatin (LIPITOR) 20 MG tablet Medication started: 10/29/2017 Last ordered by PITA GIRALDO: 07/11/2019 (55 days ago) QTY: 90, Refills: 3, Sig: take 1 tab by mouthdaily. (changed but equivalent) -> The patient is requesting refills too soon, the current prescription is due to run out on 07/05/2020. -> Refill x 9 months, qty: 90, refills: 2 (until due for an office visit) Last qualifying visit: 04/25/2019 (with PITA GIRALDO) Next scheduled visit: 09/08/2019 (in Family Practice) Powered by [employer], Reference: [id number], 09/04/2019 8:21:52 AM Jose WANG: ROMAN REFILL WIZARD ADMIN ([id number]) IGERATION TECH Gali Rene E - 09/04/2019 8:21 AM CST Medications - Refill Request (able to re-order) Name of prescribing clinician: Pita Giraldo MD Additional comments (related to the above concern): Pt is out of medication. For this refill, patient would like it filled at the pharmacy listed in Meds & Orders. (Verify the pharmacy patient would like to use for this request is highlighted in blue in Pharmacy Selection under Meds & Orders) If there are questions regarding your request, is it okay to leave a detailed message on your voicemail? Yes (Advise caller that the PN call back number will end with [phone] or unknown) (Advise caller of turn around time is 2 business days for standard refills and 2 to 5 business days for controlled refills) Please route to: Refill Pool (P [id number]) [facility] [place] Patients ONLY (P [id number]) [facility] ONLY (P [id number]) IGERATION TECH documented in this encounter Plan of Treatment Not on filedocumented as of this encounter Goals Goal Patient Goal Associated Recent Patient-Stated? Author Type Problems Progress Eating Diabetes On track No Genaro healthy Education (05/30/2017 ASHIA Crews, 4:29 PM REFRIGERATION TECH) ASHLEY, CHEIKH Note: Formatting of this note might be d ifferent from the original. Count carbohydrates at meals and snacks. documented as of this encounter Visit Diagnoses Not on filedocumented in this encounter Care Teams Tax Collector Relationship Specialty Start Date End Date Pita Giraldo MD PCP - General Family Practice 02/21/17 08/08/20 [address] [place] [address] documented as of this encounter
--- OUTSIDE RECORDS SUMMARY | 2022-04-16 08:07 | XMS_ITS | Clinical Summary ---
:1960 Author Organization [employer] [place] [address] Care Team Providers Name Role Phone Nathaniel Dee MD Primary Care Provider Allergies Active Allergy Reactions Severity Noted Date Comments Codeine Nausea And Vomiting 01/23/2022 Medications Medication Sig Dispensed Refills Start Date End Date Status albuterol HFA (Ventolin INHALE 1 TO 2 0 06/28/2020 Active HFA) 90 mcg/actuation PUFFS BY MOUTH inhaler EVERY 4 HOURS NEEDED atorvastatin (LIPITOR) Take 1 Tablet by 0 08/17/2020 Active 20 mg tablet mouth once daily. isosorbide mononitrate Take 30 mg by 0 02/27/2022 Active (IMDUR) 30 mg extended mouth once daily. release tablet 24 Hour losartan (COZAAR) 25 mg Take 75 mg by 0 01/22/2022 Active tablet mouth once daily. metFORMIN (GLUCOPHAGE) Take 1,000 mg by 0 01/01/2022 Active 1,000 mg tablet mouth two times daily with meals. omeprazole (PRILOSEC) Take 20 mg by 0 Active 20 mg Delayed-Release mouth. capsule rosuvastatin (CRESTOR) Take 5 mg by 0 01/01/2022 Active 5 mg tablet mouth once daily. triamterene-hydrochloro Take 1 Tablet by 0 2 Active thiazide, 37.5-25 mg, mouth once daily. (MAXZIDE-25) 37.5-25 mg tablet amLODIPine (NORVASC) 5 Take 1 Tablet (5 90 Tablet 3 03/23/2022 Active mg tabletIndications: mg) by mouth once HTN (hypertension) daily. Active Problems Not on file Encounters Date Type Specialty Care Team Description 03/23/2022 Office Visit Jun Young MD Consult 01/23/2022 Emergency Vandana Garcia Chest Breakfast And Room Attendant mp and gabriela Oakley MD (Primary Dx) 01/23/2022 Hospital Encounter Alex Ryan DO Chest pain, unspecified type 01/23/2022 Travel from Last 3 Months Social History Tobacco Use Types Packs/Day Years Used Date Never Assessed Sex Assigned at Date Recorded Not on file Obstetrics History Last Filed Vital Signs Vital Sign Reading Time Taken Comments Blood Pressure 148/92 03/23/2022 2:32 PM CDT Pulse 88 03/23/2022 2:32 PM CDT Temperature 37.2 ??C (98.9 ??F) 01/23/2022 4:35 PM CDT Respiratory Rate 14 03/23/2022 2:32 PM CDT Oxygen Saturation 100% 01/23/2022 5:57 PM CDT Inhaled Oxygen Concentration - - Weight 92.5 kg (204 lb) 03/23/2022 2:32 PM CDT Height 177.8 cm (5' 10) 01/23/2022 4:35 PM CDT Body Mass Index 29.27 01/23/2022 4:35 PM CDT Plan of Treatment Health Maintenance Due Date Last Done Comments Tdap 1973 Depression screening for age 12+ 1974 BMI (ht and wt on same day) for age 0803/05/1980 18+ Hepatitis C screening for age 18-79 1980 Tetanus booster 1982 Colonoscopy through age 75 2007 Lipids for age 45-75 2007 Zoster (shingles) series for age 50+ 2012 (1 of 2) COVID-19 vaccine series (4 - Booster 10/04/2021 06/06/2021, 11/05/2020, for Pfizer series) 10/15/2020 Influenza for age 50-64 03/22/2022 Procedures Procedure Name Priority Date/Time Associated Comments Diagnosis TROPONIN I Timed 01/23/2022 8:07 PM Results f or this CDT procedure are i n the results section. XR CHEST 1 VIEW STAT 01/23/2022 6:00 PM Result s for this PORTABLE CDT procedure are i n the results section. EKG 12 LEAD STAT 01/23/2022 5:21 PM Results f or this CDT procedure are i n the results section. CBC WITH AUTO STAT 01/23/2022 5:17 PM Results for this DIFFERENTIAL CDT procedure are i n the results section. MAGNESIUM STAT 01/23/2022 5:17 PM Results f or this CDT procedure are i n the results section. BRAIN NATRIURETIC STAT 01/23/2022 5:17 PM Resu lts for this PEPTIDE CDT procedure are i n the results section. TROPONIN I STAT 01/23/2022 5:17 PM Results f or this CDT procedure are i n the results section. COMP METABOLIC PANEL STAT 01/23/2022 5:17 PM R esults for this CDT procedure are i n the results section. CBC WITH AUTO STAT 01/23/2022 5:17 PM Results for this DIFFERENTIAL CDT procedure are i n the results section. GLUCOSE METER Routine 01/23/2022 4:33 PM Results for this CDT procedure are i n the results section. from Last 3 Months Results TROPONIN I (01/23/2022 8:07 PM CDT)Only the most recent of2 resultswithin the time period is included. P athologist Signature TROPONIN I <0.010 <0.034 01/23/2022 [facility] ng/mL 8:34 PM CDT [facility] Specimen Anatomical Collection Method / Collection Time Recei katherine Time (Source) Location / Volume Laterality Blood BLOOD SPECIMEN / Venipuncture / 01/23/2022 8:07 2021 8:10 Unknown Unknown PM CDT PM CDT Vandana Garcia MD CHEMISTRY Performing Organization Address City/State/ZIP Code Phon e Number [facility] [address] [place], [place] [phone] XR CHEST 1 VIEW PORTABLE (01/23/2022 6:00 PM CDT) Anatomical Region Laterality Modality HEART, THORAX, CHEST Digital Radiography Specimen (Source) Anatomical Collection Method Collection Time Re ceived Time Location / / Volume Laterality 01/23/2022 6:20 PM CDT Impressions 01/23/2022 6:20 PM CDT Unremarkable chest. Dictated by: Jun Rock MD @ 2021 18:20:48 (Electronically Signed) Narrative 01/23/2022 6:20 PM CDT For Patients: ??As a result of the Cures Act, medical imaging exams and procedure report s are released immediately into your [facility] medical record. ??You may view this report before your referring provider. ??If you have questions, please contact your health care provider. INDICATION: SOB TECHNIQUE: Chest 1 view. COMPARISON: None. FINDINGS: Cardiovascular and mediastinum: Heart si ze and vasculature are normal in caliber and appearance. ??Mediastinum is within normal limits. ?? Lungs and pleural space: Lungs are clear . ??No sign of infiltrate or mass. ??No sign of pleural effusion. ??No pneumothorax. ?? Bones and soft tissues: No significant f indings. ?? Procedure Note Jun Rock MD - 01/23/2022 For Patients: As a result of the Cures Act, medical imaging exams and procedure reports are released immediately into your electronic medical record. You may view this report before your referring provider. If you have questions, please contact [facility] health care provider. INDICATION: SOB TECHNIQUE: Chest 1 view. COMPARISON: None. FINDINGS: Cardiovascular and mediastinum: Heart si ze and vasculature are normal in caliber and appearance. Mediastinum is within normal limits. Lungs and pleural space: Lungs are clear . No sign of infiltrate or mass. No sign of pleural effusion. No pneumothorax. Bones and soft tissues: No significant f indings. IMPRESSION: Unremarkable chest. Dictated by: Jun Rock MD @ 2021 18:20:48 (Electronically Signed) Vandana Garcia MD GENERAL IMAGING EKG 12 LEAD (01/23/2022 5:21 PM CDT) Component Value Ref Range Test Analysis Performed Pathologis t Method Time At Signature Interpretation Normal sinus rhythm BEYON D NOW Normal ECG No previous ECGs available No comparisson Ventricular Rate 73 BPM BEYOND NOW Atrial Rate 73 BPM BEYOND NOW P-R Interval 150 ms BEYOND NOW QRS Duration 84 ms BEYOND NOW QT 382 ms BEYOND NOW QTc 420 ms BEYOND NOW P [place] 44 degrees BEYOND NOW R [place] 29 degrees BEYOND NOW T [place] 17 degrees BEYOND NOW Specimen Anatomical Collection Method Collection Time Receive d Time (Source) Location / / Volume Laterality 01/23/2022 5:21 PM 8:12 CDT PM CDT Vandana Garcia MD EKG ORD Performing Organization Address City/State/ZIP Code Phon e Number BEYOND NOW [place] CBC WITH AUTO DIFFERENTIAL (01/23/2022 5:17 PM CDT) P athologist Signature WHITE BLOOD 8.9 4.5 - 11.0 01/23/2022 [facility] COUNT thou/cu mm 5:25 PM CDT [facility] RED BLOOD COUNT 4.76 4.30 - 01/23/2022 [facility] 5.90 5:25 PM CDT [facility] mil/cu mm LABORATORY HEMOGLOBIN 14.1 13.5 - 01/23/2022 [facility] 17.5 g/dL 5:25 PM CDT [facility] HEMATOCRIT 40.7 37.0 - 01/23/2022 [facility] 53.0 % 5:25 PM CDT [facility] MCV 86 80 - 100 01/23/2022 [facility] fL 5:25 PM CDT [facility] MCH 29.6 26.0 - 01/23/2022 [facility] 34.0 pg 5:25 PM CDT [facility] MCHC 34.6 32.0 - 01/23/2022 [facility] 36.0 g/dL 5:25 PM CDT [facility] RDW 12.8 11.5 - 01/23/2022 [facility] 15.5 % 5:25 PM CDT [facility] PLATELET COUNT 321 140 - 440 01/23/2022 [facility] thou/cu mm 5:25 PM CDT [facility] MPV 9.7 6.5 - 11.0 01/23/2022 [facility] fL 5:25 PM CDT [facility] NEUTROPHILS 65.1 % 01/23/2022 [facility] 5:25 PM CDT [facility] LYMPHOCYTES 24.5 % 01/23/2022 [facility] 5:25 PM CDT [facility] MONOCYTES 8.4 % 01/23/2022 [facility] 5:25 PM CDT [facility] EOSINOPHILS 1.7 % 01/23/2022 [facility] 5:25 PM CDT [facility] BASOPHILS 0.3 % 01/23/2022 [facility] 5:25 PM CDT [facility] ABSOLUTE 5.8 1.7 - 7.0 01/23/2022 [facility] NEUTROPHILS thou/cu mm 5:25 PM T [facility] ABSOLUTE 2.2 0.9 - 2.9 01/23/2022 [facility] LYMPHOCYTES thou/cu mm 5:25 PM T [facility] ABSOLUTE 0.7 <0.9 01/23/2022 [facility] MONOCYTES thou/cu mm 5:25 PM [facility] ABSOLUTE 0.2 <0.5 01/23/2022 [facility] EOSINOPHILS thou/cu mm 5:25 PM [facility] ABSOLUTE 0.0 <0.3 01/23/2022 [place] BASOPHILS thou/cu mm 5:25 PM [facility] Specimen Anatomical Collection Method / Collection Time Recei katherine Time (Source) Location / Volume Laterality Blood BLOOD SPECIMEN / Venipuncture / 01/23/2022 5:17 2021 5:21 Unknown Unknown PM CDT PM CDT Vandana Garcia MD HEMATOLOGY Performing Organization Address City/[facility]/ZIP Code Phon e Number [facility] [address] [place] [address] BRAIN NATRIURETIC PEPTIDE (01/23/2022 5:17 PM CDT) athologist Signature BRAIN BETY <10 <100 pg/mL 01/23/2022 [facility] PEPTIDE 6:08 PM [facility] Specimen Anatomical Collection Method / Collection Time Recei katherine Time (Source) Location / Volume Laterality Blood BLOOD SPECIMEN / Venipuncture / 01/23/2022 5:17 2021 5:21 Unknown Unknown PM CDT PM CDT Vandaan Garcia MD CHEMISTRY Performing Organization Address City/[facility] Code Phon e Number [facility] [address] [place] [address] MAGNESIUM (01/23/2022 5:17 PM CDT) athologist Signature MAGNESIUM 1.8 1.6 - 2.6 01/23/2022 [facility] mg/dL 5:[address] [facility] Specimen Anatomical Collection Method / Collection Time Recei katherine Time (Source) Location / Volume Laterality Blood BLOOD SPECIMEN / Venipuncture / 01/23/2022 5:17 2021 5:21 Unknown Unknown PM CDT PM CDT Vandana Garcia MD CHEMISTRY Performing Organization Address City/State/ZIP Code Phon e Number [facility] [address] [facility] [place] [address] (ABNORMAL) COMP METABOLIC PANEL (01/23/2022 5:17 PM CDT) [facility] Method Time Signature SODIUM 136 135 - 145 01/23/2022 [facility] mmol/L 5:[address] [facility] POTASSIUM 4.1 3.5 - 5.0 01/23/2022 [facility] mmol/L 5:[address] [facility] CHLORIDE 102 98 - 110 01/23/2022 [facility] mmol/L 5:[address] [facility] CO2,TOTAL 20 (L) 21 - 31 01/23/2022 [place] mmol/L 5:[address] [facility] ANION GAP 14 5 - 18 01/23/2022 [facility] 5:[address] [facility] GLUCOSE 120 (H) 65 - 100 01/23/2022 [facility] mg/dL 5:[address] [facility] CALCIUM 9.8 8.5 - 01/23/2022 [place] 10.5 5:54 PM [facility] mg/dL LABORATORY BUN 20 8 - 25 01/23/2022 [place] mg/dL 5:[address] [facility] CREATININE 1.62 (H) 0.72 - 01/23/2022 [facility] 1.25 5:54 PM [facility] mg/dL LABORATORY BUN/CREAT RATIO 12 10 - 20 01/23/2022 [place] 5:[address] [facility] ALBUMIN 4.5 3.5 - 5.2 01/23/2022 [facility] g/dL 5:[address] [facility] PROTEIN,TOTAL 7.4 6.0 - 8.0 01/23/2022 [place] g/dL 5:[address] [facility] GLOBULIN 2.9 2.0 - 3.7 01/23/2022 [place] g/dL 5:[address] [facility] A/G RATIO 1.6 1.0 - 2.0 01/23/2022 [facility] 5:[address] [facility] BILIRUBIN,TOTAL 1.5 (H) 0.2 - 1.2 01/23/2022 [facility] mg/dL 5:[address] [facility] ALK PHOSPHATASE 53 50 - 136 01/23/2022 [facility] IU/L 5:[address] [facility] ALT (SGPT) 30 8 - 45 01/23/2022 [place] IU/L 5:[address] [facility] AST (SGOT) 21 2 - 40 01/23/2022 [facility] IU/L 5:[address] [facility] eGFR 49 (L) >90 01/23/2022 [facility] mL/min/1. 5:[address] [facility] 73m2 LABORATORY Comment: As of 2021, eGFR is calcu lated by the CKD-EPI creatinine equation without race adjustment. eGFR can be inf luenced by muscle mass, exercise, and diet. The reported eGFR is an estimation only and is only applicable if the renal function is stable. Specimen Anatomical Collection Method / Collection Time Recei katherine Time (Source) Location / Volume Laterality Blood BLOOD SPECIMEN / Venipuncture / 01/23/2022 5:17 2021 5:21 Unknown Unknown PM CDT PM CDT Vandana Garcia MD CHEMISTRY Performing Organization Address City/State/ZIP Code Phon e Number [facility] [address] [place] [address] GLUCOSE METER (01/23/2022 4:33 PM CDT) P athologist Signature GLUCOSE METER 99 65 - 100 01/23/2022 [facility] mg/dL 4:[address] [facility] Specimen Anatomical Collection Method Collection Time Receive d Time (Source) Location / / Volume Laterality Blood BLOOD SPECIMEN / 01/23/2022 4:33 PM 07/05 /2022 4:35 Unknown CDT PM CDT Doctor Unknown CHEMISTRY Performing Organization Address City/State/ZIP Code Phon e Number [facility] [address] [place] [address] from Last 3 Months Insurance Payer Benefit Plan / Subscriber ID Effective Dates Phone Addre ss Type Group [employer] HP [id number] 2021-Present [address] [place] [address] Care Teams Mastercam Programmer Relationship Specialty Start Date End Date Nathaniel Dee MD PCP - General Family Practice 01/03/221999 [place] [phone]
--- OUTSIDE RECORDS SUMMARY | 2022-04-16 08:07 | XMS_ITS | Encounter Summary ---
:1960 Author Organization [facility] Address [address] [place] [address] Care Team Providers Name Role Phone Unavailable Primary Care Provider Unavailable Reason for Visit Reason Comments Refill atorvastatin (LIPITOR) 20 MG tablet [Pharmacy Med Name: ATORVASTATIN 20 MG TABLET] Encounter Details Date Type Department Care Team Description 08/17/2020 Refill [facility] Pita Giraldo MD Refill (atorvastatin [address] [address] (LIPITOR) 20 MG tablet [place], [place] [address] [Pharmacy Med Name: [id number] ATORVASTATIN 20 MG [id number] TABLET]) Social History Tobacco Use Types Packs/Day [...] documented as of this encounter Nursing Notes Susu Villeda RN - 08/17/2020 4:37 PM CST Renewed medication per medication refill protocol. Requested Prescriptions Pending Prescriptions Disp Refills ??? atorvastatin (LIPITOR) 20 MG tablet [Pharmacy Med Name: ATORVASTATIN 20 MG TABLET] 90 Tablet 0 Sig: TAKE 1 TAB BY MOUTH DAILY. Y ANTIARMOR WEAPONS INFANTRYMAN Interface, Out [employer] Prov Query - 08/17/2020 2:00 PM CST atorvastatin (LIPITOR) 20 MG tablet [Pharmacy Med Name: ATORVASTATIN 20 MG TABLET] Medication started: 10/29/2017 Last ordered by PITA GIRALDO: 07/11/2019 (403 days ago) QTY: 90, Refills: 3, Sig: take 1 tab by mouth daily. (unchanged) -> Refill x 3 months (until due for an office visit) Last qualifying visit: 09/08/2019 (with PITA GIRALDO) Next scheduled visit: None Powered by [employer], Reference: [id number], 08/17/2020 2:00:49 PM HEAVY ANTIARMOR WEAPONS INFANTRYMAN, Pool: JO REFILL ([id number]) Y ANTIARMOR WEAPONS INFANTRYMAN documented in this encounter Plan of Treatment Not on filedocumented as of this encounter Goals Goal Patient Goal Associated Recent Patient-Stated? Author Type Problems Progress Eating Diabetes On track No Genaro, healthy Education (05/30/2017 ASHIA Crews, 4:29 PM HEAVY ANTIARMOR WEAPONS INFANTRYMAN) ASHLEY, CDCES Note: Formatting of this note might be d ifferent from the original. Count carbohydrates at meals and snacks. documented as of this encounter Visit Diagnoses Not on filedocumented in this encounter
--- OUTSIDE RECORDS SUMMARY | 2022-04-16 08:07 | XMS_ITS | Encounter Summary ---
:1960 Author Organization [facility] Address [address], [place] [address] Care Team Providers Name Role Phone Sunny Giraldo MD Primary Care Provider Reason for Visit Reason Comments ANGINA (Routine) - Closed Specialty Diagnoses / Procedures Referred By Contact Refer red To Contact Diagnoses Anginal pain (HRC) Eva Hernandez MD Procedures Stress Echocardiogram [address] [facility] [address] [place], [place] [address] Referral ID Status Reason Start Date Expiration Date Visits Requ ested Visits Authorized [id number] Closed 03/03/2019 06/01/2020 1 1 Encounter Details Date Type Department Care Team Description 03/12/2019 Procedure Visit [place] [facility] ANGINA [address] [place] [address] Social History Tobacco Use Types Packs/Day Years [...] documented as of this encounter Progress Notes Kinsey Lauren RN - 03/12/2019 11:00 AM CDT Stress test complete. Results pending. documented in this encounter Plan of Treatment Not on filedocumented as of this encounter Goals Goal Patient Goal Associated Recent Patient-Stated? Author Type Problems Progress Eating Diabetes On track No Genaro healthy Education (05/30/2017 ASHIA Crews, 4:29 PM NEEDLE POLISHER) CHEIKH RAMIREZ Note: Formatting of this note might be d ifferent from the original. Count carbohydrates at meals and snacks. documented as of this encounter Procedures Procedure Name Priority Date/Time Associated Comments Diagnosis STRESS ECHOCARDIOGRAM Routine 03/12/2019 11:02 Anginal pain (H RC) Results for this AM CDT procedure are i n the results section. documented in this encounter Results Stress Echocardiogram (03/12/2019 11:02 [...] HR: 163 bpm ? HR BP Product: 80655 % of Max Predicted HR: 93 ? [...] DEMOGRAPHICS Patient Name ?? BRENNEN MORENO ??Room Nu mber ?OUTPT ?G Patient Number [id number] ? Date o f Study ?03/12/2019 Accession ?[id number] ?Int erpreting ? JOHN HOLLAND, Number ?Physician ? Date of ??1960 ? [facility] Physician EVA HERNANDEZ MD Primary ?EVA HERNANDEZ Physician ? Wetland Scientist ?[place], [facility] Nurse ?MANOLO, livestock dealer Note John Holland MD - 03/12/2019For matting of this note might be different from the original. STRESS ECHOCARDIOGRAM. Date: 03/12/2019 Start: 11:02 AM Fabio Garcia CONCLUSIONS REST: LV chamber size, wall thickness, [...] HR: 163 bpm HR BP Product : 77618 % of Max Predicted HR: 93 Max [...] MORENO Room Number OUTPT G Patient Number [id number] Date of Study 0 03/12/2019 Interpreting Seb ESPANA MD Date of 1960 Ordering Physi roque HERNANDEZ MD Primary EVA HERNANDEZ Physician Wetland Scientist [facility]AY[place], RDCS Nurse KH, RN Eva Hernandez MD PN ECHO ORDERABLES Performing Organization Address City/State/ZIP Code Phon e Number PN ECHO documented in this encounter Visit Diagnoses Diagnosis Anginal pain (HRC) Other and unspecified angina pectoris documented in this encounter Care Teams R D Manager Relationship Specialty Start Date End Date Sunny Giraldo MD PCP - General Family Practice 02/21/17 08/08/20 [address] [place] [address] documented as of this encounter
--- OUTSIDE RECORDS SUMMARY | 2022-04-16 08:07 | XMS_ITS | Encounter Summary ---
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 [phone] Social History Tobacco Use Types Packs/Day Years [...] Comments Blood Pressure 168/87 09/08/2019 5:44 PM AUTOMATION TECHNOLOGIST Pulse 52 09/08/2019 5:44 PM AUTOMATION TECHNOLOGIST Temperature - - Respiratory Rate - - Oxygen Saturation - - Inhaled Oxygen Concentration - - Weight 85.4 kg (188 lb 3.2 oz) 09/08/2019 5:44 PM AUTOMATION TECHNOLOGIST Height - - Body Mass Index 25.17 02/25/2018 4:20 PM CDT documented in this encounter Progress Notes Sunny Giraldo MD - 09/08/2019 5:40 PM CST SUBJECTIVE: Bryce Mosley is a 59 y.o.male Chief Complaint: Chief Complaint Patient presents with ??? MEDICATION CHECK HPI: 59 years old male is coming today to clinic for follow-up his high blood pressure. He has history of chronic kidney disease stage III moderate. He see biomathematician and he had also chronic nonalcoholic liver disease. My last time that he see his biomathematician his calcium was increasing to 10.6 he stop his chlorthalidone increase the Cozaar to 75 mg a day according to the patient since then his weight has increased and blood pressure is not well controlled. He stated that almost gained 8 lb but I do not see indication of any pitting edema. He denies chest pain chest tightness or any short of breath. ROS: Complete ROS was negative other than what was cited above. Social History: Social History Tobacco Use ??? Smoking status: Never Smoker ??? Smokeless tobacco: Never Used Substance Use Topics ??? Alcohol use: Yes Comment: Alcoholic Drinks/day: Amount:1-2 drinks; Freq:=< Monthly; ??? Drug use: No Past Medical History: Patient Active Problem List Diagnosis ??? Essential hypertension (HRC) ??? Hyperlipidemia (HRC) ??? Chronic nonalcoholic liver disease (HRC) ??? Esophageal reflux ??? Chronic kidney disease (CKD), stage III (moderate) (HRC) ??? Type 2 diabetes mellitus without complication, without long-term current use of insulin (HRC) Adverse Drug Reactions: Codeine and Lisinopril Medications: ALBUterol sulfate HFA, Accu-Chek Guide, atorvastatin, blood glucose, chlorthalidone, lancets, losartan, metFORMIN, and omeprazole OBJECTIVE: Vital Signs: BP (!) 168/87 (BP Location: Left Arm, BP Cuff Size: Regular) Pulse (!) 52 Wt 188 lb3.2 oz (85.4 kg) BMI 25.17 kg/m?? . General: Alert oriented he does not seems to be distressed. HEENT: Ear clear, nose mucosa Happy trophic, oral cavity pharynx uvula appear normal. Lymphatic: No enlarged lymph Chest: Lungs clear Heart: Heart S1-S2 without murmur Abdomen: Abdomen is soft no rebound no guarding no masses no tenderness Musculoskeletal: Upper and lower extremity joints symmetrical for range of motion active and passivepulse reflex normal, I do not see any pitting edema in the lower extremities. Skin: Has multiple skin rash in breaks that is chronic problem. Neurological: No focal deficit Labs: @EDLABS@ X-Rays: No results found. ASSESSMENT: 1. Type 2 diabetes mellitus without complication, without long-term current use of insulin (HRC) high blood pressure not well controlled at this time after stopping his hydrochlorothiazide. PLAN: I did not change any of his medication tomorrow he will see his biomathematician consult with them if hegoing to continue to take the same medication or not or change it his diuretic was stopped because his calcium was going up. For diabetes he did see nurses educator in the past glucose was normal hemoglobin A1c is due againI ordered that today. Continue the same medication until we get the result concern question back to the clinic even if his everything stable need to be seen every 6 months he agree. @EDMEDS@ Medications Prescribed this Visit None Discharge instructions are on file. The patient was discharged ambulatory and in stable condition. MATION TECHNOLOGIST documented in this encounter Plan of Treatment Not on filedocumented as of this encounter Goals Goal Patient Goal Associated Recent Patient-Stated? Author Type Problems Progress Eating Diabetes On track No Genaro healthy Education (05/30/2017 ASHIA Crews, 4:29 PM AUTOMATION TECHNOLOGIST) ASHLEY, CHEIKH Note: Formatting of this note might be d ifferent from the original. Count carbohydrates at meals and snacks. documented as of this encounter Results Hgb A1C (09/08/2019 6:37 PM AUTOMATION TECHNOLOGIST) P athologist Signature Hemoglobin A1C 5.5 <=5.6 % 09/08/2019 [facility] 9:35 PM AUTOMATION TECHNOLOGIST LABORATORY Specimen Anatomical Collection Method / Collection Time Recei katherine Time (Source) Location / Volume Laterality Blood Venipuncture / 09/08/2019 6:37 09/08/2019 6:37 Unknown PM AUTOMATION TECHNOLOGIST PM AUTOMATION TECHNOLOGIST Sunny Giraldo MD LAB_1 Performing Organization Address City/State/ZIP Code Phon e Number [facility] [address] [place] [address] documented in this encounter Visit Diagnoses Diagnosis 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
--- OUTSIDE RECORDS SUMMARY | 2022-04-16 08:07 | XMS_ITS | Encounter Summary ---
:1960 Author Organization [facility] Address [address] [address] Care Team Providers Name Role Phone Pita Giraldo MD Primary Care Provider Reason for Visit Reason Comments Refill metFORMIN (GLUCOPHAGE) 500 M G tablet [Pharmacy Med Name: METFORMIN HCL 500 MG TABLET] Encounter Details Date Type Department Care Team Description 04/02/2019 Refill [facility] Pita Giraldo M D Refill (metFORMIN Medicine [address] (GLUCOPHAGE) [address] [place] [address] tablet [Pharmacy Med [place], [place] [phone] (Wo rk) Name: METFORMIN HCL 500 [id number] MG TABLET]) [phone] Social History Tobacco Use Types Packs/Day Years [...] documented as of this encounter Nursing Notes MevErnestine denny RN - 04/03/2019 12:43 PM CDT Renewed medication per medication refill protocol. Requested Prescriptions Pending Prescriptions Disp Refills metFORMIN (GLUCOPHAGE) 500 MG tablet [Pharmacy Med Name: METFORMIN HCL 500 MG TABLET] 360 Tablet 0 Sig: TAKE 2 TABLETS BY MOUTH TWO TIMES A DAY. Interface, Out Surescripts Prov Query - 04/02/2019 2:29 AM CDT metFORMIN (GLUCOPHAGE) 500 MG tablet [Pharmacy Med Name: METFORMIN HCL 500 MG TABLET] Medication started: 02/22/2017 Last ordered by PITA GIRALDO: 01/05/2019 (87 days ago) QTY: 360, Refills: 0, Sig: take 2 tablets by mouth two times a day. (unchanged) -> A courtesy refill was already recommended on 01/05/2019. -> GFR (CrCl) estimated is abnormal (56 ml/min is less than 60.0 ml/min) -> Refill x 3 months (courtesy refill. overdue for an office visit and Rapid A1C check) Last qualifying visit: 02/25/2018 (with PITA GIRALDO) Next scheduled visit: 04/25/2019 (in Family Practice) GFR (CrCl) estimated: 56 ml/min on 02/19/2019 Rapid A1C : 5.5 % on 07/07/2018 PATIENT IS DUE FOR: - HBA1C (PN ONLY) (Sent to [facility]) Powered by [employer], Reference: [id number], 04/02/2019 2:29:19 AM CDT, Pool: JO REFILL ([id number]) documented in this encounter Plan of Treatment Not on filedocumented as of this encounter Goals Goal Patient Goal Associated Recent Patient-Stated? Author Type Problems Progress Eating Diabetes On track No Genaro healthy Education (05/30/2017 ASHIA Crews, 4:29 PM JEWEL BEARING TURNER) ASHLEY, CHEIKH Note: Formatting of this note might be d ifferent from the original. Count carbohydrates at meals and snacks. documented as of this encounter Visit Diagnoses Not on filedocumented in this encounter Care Teams Gun Perforator Relationship Specialty Start Date End Date Pita Giraldo MD PCP - General Family Practice 02/21/17 08/08/20 [address] [place] [address] documented as of this encounter
--- OUTSIDE RECORDS SUMMARY | 2022-04-16 08:07 | XMS_ITS | Encounter Summary ---
:1960 Author [facility] Address [address], [place] [address] Care Team Providers Name Role Phone Pita Giraldo MD Primary Care Provider Reason for Visit Reason Comments Refill atorvastatin (LIPITOR) 20 MG tablet [Pharmacy Med Name: ATORVASTATIN 20 MG TABLET] Encounter Details Date Type Department Care Team Description 07/11/2019 Refill [facility] Pita Giraldo MD Refill (atorvastatin [address] (LIPITOR) 20 MG tablet [place], [place] [address] [Pharmacy Med Name: [id number] ATORVASTATIN 20 MG [phone] TABLET]) Social History Tobacco Use Types Packs/Day [...] encounter Nursing Notes Ernestine Salinas RN - 07/11/2019 11:00 AM CST Renewed medication per medication refill protocol. Requested Prescriptions Pending Prescriptions Disp Refills atorvastatin (LIPITOR) 20 MG tablet [Pharmacy Med Name: ATORVASTATIN 20 MG TABLET] 90 Tablet 3 Sig: TAKE 1 TAB BY MOUTH DAILY. BORER Interface, Out [employer] Prov Query - 07/11/2019 12:48 AM CST atorvastatin (LIPITOR) 20 MG tablet [Pharmacy Med Name: ATORVASTATIN 20 MG TABLET] Medication started: 10/29/2017 Last ordered by PITA GIRALDO: 04/20/2019 (82 days ago) QTY: 90, Refills: 0, Sig: take 1 tab by mouthdaily. (unchanged) -> Refill x 12 months, qty: 90, refills: 3 (until due for an office visit) Last qualifying visit: 04/25/2019 (with PITA GIRALDO) Next scheduled visit: None Powered by [employer], Reference: [id number], 07/11/2019 12:48:50 AM KNOT BORER, Pool: RIVKAJR REFILL ([id number]) BORER documented in this encounter Plan of Treatment Not on filedocumented as of this encounter Goals Goal Patient Goal Associated Recent Patient-Stated? Author Type Problems Progress Eating Diabetes On track No [place], healthy Education (05/30/2017 ASHIA Crews, 4:29 PM KNOT BORER) ASHLEY, CHEIKH Note: Formatting of this note might be d ifferent from the original. Count carbohydrates at meals and snacks. documented as of this encounter Visit Diagnoses Not on filedocumented in this encounter Care Teams Help Desk Manager Relationship Specialty Start Date End Date Pita Giraldo MD PCP - General Family Practice 02/21/17 08/08/20 [address] [place] [address] documented as of this encounter
--- OUTSIDE RECORDS SUMMARY | 2022-04-16 08:08 | XMS_ITS | Encounter Summary ---
:1960 Author Organization [facility] Address [address] [place] [address] Care Team Providers Name Role Phone Pita Giraldo MD Primary Care Provider Encounter Details Date Type Department Care Team Description 01/05/2019 Refill Order [facility] [address] [place] [place] [address] [place] [address] [phone] (Wo rk) Social History Tobacco Use Types [...] documented as of this encounter Nursing Notes Sangita Carreon - 01/05/2019 12:59 PM CDT Labs to be addressed at future visit. Interface, Out Riskonnect Prov Query - 01/05/2019 8:24 AM CDT SCHEDULE THE FOLLOWING: - HBA1C (PN ONLY) BY: Now (Due as of 01/03/2019 for metFORMIN (GLUCOPHAGE) 500 MG tablet) - LAST QUALIFYING VISIT WITH PITA GIRALDO: 02/25/2018 - NEXT SCHEDULED VISIT: None - NEXT LAB APPOINTMENT: None Powered by [employer], Reference: [id number], 01/05/2019 8:24:18 AM CDT, Pool: PN REFILL WIZARD ADMIN ([id number]) documented in this encounter Plan of Treatment Not on filedocumented as of this encounter Goals Goal Patient Goal Associated Recent Patient-Stated? Author Type Problems Progress Eating Diabetes On track No Genaro healthy Education (05/30/2017 ASHIA Crews, 4:29 PM SPINNING ROOM WORKER) ASHLEY, CHEIKH Note: Formatting of this note might be d ifferent from the original. Count carbohydrates at meals and snacks. documented as of this encounter Visit Diagnoses Diagnosis Encounter for long-term (current) use of medications - Primary Encounter for long-term (current) use of other medications documented in this encounter Care Teams Computational Theory Scientist Relationship Specialty Start Date End Date Pita Giraldo MD PCP - General Family Practice 02/21/17 08/08/20 [address] [place] [address] documented as of this encounter
--- OUTSIDE RECORDS SUMMARY | 2022-04-16 08:08 | XMS_ITS | Encounter Summary ---
:1960 Author Organization [facility] Address [address], [place] [address] Care Team Providers Name Role Phone Pita Giraldo MD Primary Care Provider Reason for Visit Reason Comments Refill metFORMIN (GLUCOPHAGE) 500 M G tablet [Pharmacy Med Name: METFORMIN HCL 500 MG TABLET] Encounter Details Date Type Department Care Team Description 10/16/2018 Refill [facility] Pita Giraldo MD Refill (metFORMIN [address]ab[address] (GLUCOPHAGE) 500 MG [address] [place] [address] tablet [Pharmacy Med [place], [place] [address] Name: METFORMIN HCL 500 [phone] MG TABLET ]) Social History Tobacco Use Types Packs/Day Years [...] encounter Nursing Notes Neel Mccain RN - 10/16/2018 7:58 AM CDT Renewed medication per medication refill protocol. Requested Prescriptions Pending Prescriptions Disp Refills metFORMIN (GLUCOPHAGE) 500 MG tablet [Pharmacy Med Name: METFORMIN HCL 500 MG TABLET] 360 Tablet 0 Sig: TAKE 2 TABLETS BY MOUTH TWICE A DAY Interface, Out Surescripts Prov Query - 10/16/2018 7:34 AM CDT metFORMIN (GLUCOPHAGE) 500 MG tablet [Pharmacy Med Name: METFORMIN HCL 500 MG TABLET] Medication started: 02/22/2017 Last ordered by PITA GIRALDO: 05/06/2018 (163 days ago) QTY: 360, Refills: 1, Sig: take 2 tablets bymouth twice a day (unchanged) -> GFR (CrCl) estimated is abnormal (56 ml/min is less than 60.0 ml/min) -> Refill x 3 months (until due for a(n) Rapid A1C check) Last qualifying visit: 02/25/2018 (with PITA GIRALDO) Next scheduled visit: None GFR (CrCl) estimated: 56 ml/min on 07/07/2018 Rapid A1C : 5.5 % on 07/07/2018 Powered by [employer], Reference: [id number], 10/16/2018 7:34:21 AM CDT, Pool: JEANNIE FP REFILL ([id number]) documented in this encounter Plan of Treatment Not on filedocumented as of this encounter Goals Goal Patient Goal Associated Recent Patient-Stated? Author Type Problems Progress Eating Diabetes On track No Genaro healthy Education (05/30/2017 ASHIA Crews, 4:29 PM INSULATION INSPECTOR) ASHLEY, CHEIKH Note: Formatting of this note might be d ifferent from the original. Count carbohydrates at meals and snacks. documented as of this encounter Visit Diagnoses Not on filedocumented in this encounter Care Teams Respite Provider Relationship Specialty Start Date End Date Pita Giraldo MD PCP - General Family Practice 02/21/17 08/08/20 [address] [place] [address] documented as of this encounter
--- OUTSIDE RECORDS SUMMARY | 2022-04-16 08:08 | XMS_ITS | Encounter Summary ---
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 Count carbohydrates at meals and snacks. documented as of this encounter Procedures Procedure Name Priority Date/Time Associated Diagnosis Comme nts VITAMIN D Routine 02/19/2019 12:20 PM Chronic kidney Result s for this 25-HYDROXY, TOTAL CDT disease (CKD), stage pr ocedure are in III (moderate) (HRC) the res ults section. RENAL FUNCTION Routine 02/19/2019 12:20 PM Chronic kidney Resu lts for this PANEL CDT disease (CKD), stage procedu re are in III (moderate) (HRC) the res ults section. INTACT PTH Routine 02/19/2019 12:20 PM Chronic kidney Result s for this CDT disease (CKD), stage procedu re are in III (moderate) (HRC) the res ults section. HEMOGLOBIN, BLOOD Routine 02/19/2019 12:20 PM Chronic kidney R esults for this CDT disease (CKD), stage procedu re are in III (moderate) (HRC) the res ults section. ALBUMIN/CREAT RATIO Routine 02/19/2019 12:20 PM Chronic kidney Results for this CDT disease (CKD), stage procedu re are in III (moderate) (HRC) the res ults section. documented in this encounter Results Vitamin D (In house) - in 1 year (02/19/2019 12:20 PM CDT) athologist Signature Vitamin D, 43 30 - 80 02/19/2019 [facility] 25-OH, Total ng/mL 5:27 PM CDT LABORATORY Specimen Anatomical Collection Method Collection Time Receive d Time (Source) Location / / Volume Laterality Blood 02/19/2019 12:20 02/19/2019 PM CDT 12:20 PM CDT Terrence Hernandez MD LAB_1 Performing Organization Address City/State/ZIP Code Phon e Number [facility] [address] [place] [address] PTH - Parathyroid Hormone Intact - in 1 year (02/19/2019 12:20 PM CDT) athologist Signature Intact PTH 55 10 - 100 02/19/2019 [facility] pg/mL 4:21 PM CDT LABORATORY Specimen Anatomical Collection Method Collection Time Receive d Time (Source) Location / / Volume Laterality Blood 02/19/2019 12:20 02/19/2019 PM CDT 12:20 PM CDT Terrence Hernandez MD LAB_1 Performing Organization Address City/State/ZIP Code Phon e Number [facility] [address] [place] [address] Microalbumin Urine Random - in 1 year (02/19/2019 12:20 PM CDT) P athologist Signature Albumin, 7.9 mg/L 02/19/2019 [facility] Urine, Random 3:50 PM CDT LABORATORY Creatinine, 65 >20 mg/dL 02/19/2019 [facility] Urine, Random 3:50 PM CDT LABORATORY Albumin/Creati 12 <30 mg/g 02/19/2019 [facility] nine Ratio, 3:50 PM CDT LABORATORY Urine, Random Specimen Anatomical Collection Method Collection Time Receive d Time (Source) Location / / Volume Laterality Urine,random 02/19/2019 12:20 02/19/2019 PM CDT 12:20 PM CDT Terrence Hernandez MD LAB_1 Performing Organization Address City/[facility]/ZIP Code Phon e Number [facility] [address] [place] [address] Hemoglobin - in 1 year (02/19/2019 12:20 PM CDT) P athologist Signature Hemoglobin 15.0 13.5 - 17.5 02/19/2019 [facility] g/dL 12:25 PM CDT Specimen Anatomical Collection Method Collection Time Receive d Time (Source) Location / / Volume Laterality Blood 02/19/2019 12:20 02/19/2019 PM CDT 12:20 PM CDT Terrence Hernandez MD LAB_1 Performing Organization Address City/[facility]/ZIP Code Phon e Number [facility] [address] [place] [address] [phone] [facility] [address] [place] [address] [address] [phone] (ABNORMAL) Renal Function Panel - in 1 year (02/19/2019 12:20 PM CDT) Patholo gist Method Time Signature Sodium 141 136 - 145 02/19/2019 [facility] mmol/L 3:12 PM CDT LABORATORY Potassium 4.0 3.5 - 5.1 02/19/2019 [facility] mmol/L 3:12 PM CDT LABORATORY Chloride 102 98 - 109 02/19/2019 [facility] mmol/L 3:12 PM CDT LABORATORY CO2 26 20 - 29 02/19/2019 [facility] mmol/L 3:12 PM CDT LABORATORY Anion Gap 13 7 - 16 02/19/2019 [facility] mmol/L 3:12 PM CDT LABORATORY Calcium 10.1 8.4 - 10.4 02/19/2019 [facility] mg/dL 3:12 PM CDT LABORATORY BUN 21 7 - 26 02/19/2019 [facility] mg/dL 3:12 PM CDT LABORATORY Creatinine 1.40 (H) 0.73 - 02/19/2019 [facility] 1.18 mg/dL 3:12 PM CDT LABORATORY GFR, Estimated 56 (L) >60 02/19/2019 [facility] mL/min/1.7 3:12 PM CDT LABORATORY 3m2 GFR, Est If >60 >60 02/19/2019 [facility] mL/min/1.7 3:12 PM CDT LABORATORY Guamanian 3m2 Albumin 4.4 3.5 - 5.0 02/19/2019 [facility] g/dL 3:12 PM CDT LABORATORY Phosphorus 2.8 2.3 - 4.7 02/19/2019 [facility] mg/dL 3:12 PM CDT LABORATORY Glucose 105 (H) 70 - 100 02/19/2019 [facility] mg/dL 3:12 PM CDT LABORATORY Comment: The given reference range is fo r the fasting state. Non-fasting reference range for glucose is 70 - 180 mg/dL. Hours Fasting 3 02/19/2019 3:12 PM CDT [facility] Specimen Anatomical Collection Method Collection Time Receive d Time (Source) Location / / Volume Laterality Blood 02/19/2019 12:20 02/19/2019 PM CDT 12:20 PM CDT Narrative [facility] - 02/19/2019 3:12 PM CDT The National Kidney Disease Education Pr ogram suggests measuring Cystatin C in patients with eGFRcrea of 45 to 59 ml/mi n/1.73^2 who do not have other markers of kidney damage (i.e. elevated urine Album in/Creatinine Ratio or a prior Cystatin C confirming the presence of chronic kidne y disease). Terrence Hernandez MD LAB_1 Performing Organization Address City/State/ZIP Code Phon e Number [facility] [address] [place] [address] [facility] [address] [place] [address], [facility] documented in this encounter Visit Diagnoses Diagnosis Chronic kidney disease (CKD), stage III (moderate) (HRC) Chronic kidney disease, Stage III (moder ate) documented in this encounter Care Teams Director Of Human Resources Relationship Specialty Start Date End Date Sunny Giraldo MD PCP - General Family Practice 02/21/17 08/08/20 [address] [place], [place] [id number] documented as of this encounter
--- OUTSIDE RECORDS SUMMARY | 2022-04-16 08:08 | XMS_ITS | Encounter Summary ---
:1960 Author Organization [employer] Address [address], [place] [address] Care Team Providers Name Role Phone Sunny Giraldo MD Primary Care Provider Reason for Visit Reason Comments Follow-up Encounter Details Date Type Department Care Team Description 03/03/2019 Office Visit Special[facility] Terrence Hernandez MD Anginal pain (HRC) (Primary Dx); 3931 Nephrology 3931 [facility] Chronic kidney disease, stag e III (moderate) (HRC); [address] [facility] [address] [place] [address] [phone] (Wo rk) Social History Tobacco Use Types [...] Sign Reading Time Taken Comments Blood Pressure 135/85 03/03/2019 11:07 AM CDT Pulse 69 03/03/2019 11:07 AM CDT Temperature - - Respiratory Rate - - Oxygen Saturation - - Inhaled Oxygen Concentration - - Weight - - Height - - Body Mass Index - - documented in this encounter Progress Notes Terrence Hernandez MD - 03/03/2019 11:00 AM CDT 03/04/2019 Reason for visit: Follow-up regarding chronic kidney disease stage 3, HTN, and related issues. Subjective: Bryce Mosley is a 58 y.o. y.o. male who returns to the clinic for scheduled follow-up. Patient was last seen here on 02/17/18. Since our last visit, he has been doing okay. He has noticed some chest burning walking up a hill. He stops and after 5-10 minutes the discomfort goes away. He denies any nausea or vomiting associated with this. He thinks he may have palpitations. On reflection, he gets the same type of discomfort when he exerts himself. He may well be SOB as well. Review of Systems: Acomplete ROS was obtained and the pertinent positives are listed in the subjective. All other systems are negative. Past Medical History: Reviewed and updated in Vers[employer]. Pertinent details annotated in the assessment. Patient Active Problem List Diagnosis ??? Essential hypertension (HRC) ??? Hyperlipidemia (HRC) ??? Chronic nonalcoholic liver disease (HRC) ??? Esophageal reflux ??? Chronic kidney disease (CKD), stage III (moderate) (HRC) ??? Type 2 diabetes mellitus without complication, without long-term current use of insulin (HRC) Outpatient Medications Prior to Visit Medication Sig Dispense Refill ??? atorvastatin (LIPITOR) 20 MG tablet TAKE 1 TAB BY MOUTH DAILY. 90 Tablet 1 ??? blood glucose (ACCU-CHEK GUIDE) test strip [...] check blood sugars. 1 Kit 0 ??? lancets (ACCU-CHEK FASTCLIX) Use 1 Each to test three times a day. Use as directed to check blood sugars 102 Each 11 ??? metFORMIN (GLUCOPHAGE) 500 MG tablet Take 2 Tablets by mouth two times a day. 360 Tablet 0 ??? omeprazole (PRILOSEC) 20 MG capsule Take 20 mg by mouth daily. Take 1 hour before a meal. ??? chlorthalidone (HYGROTON) 25 MG tablet TAKE 1 TABLET BY MOUTH DAILY. 90 Tablet 0 ??? losartan (COZAAR) 25 MG tablet Take 1 Tablet by mouth daily. 90 Tablet 1 ??? metFORMIN (GLUCOPHAGE) 1000 MG tablet Take 1 Tab by mouth two times a day with meals. 180 Tab 3 No facility-administered medications prior to visit. Objective: Filed Vitals: 03/03/19 1107 BP: 135/85 Pulse: 69 Genl: Awake alert comfortable. HEENT: regular Heart: clear Lungs: +BS Abd: no edema Ext: no edema. Neuro: non focal Lab Visit on 02/19/2019 Component Date Value Ref Range Status ??? Sodium 02/19/2019 141 136 - 145 mmol/L Final ??? Potassium 02/19/2019 4.0 3.5 - 5.1 mmol/L Final ??? Chloride 02/19/2019 102 98 - 109 mmol/L Final ??? CO2 02/19/2019 26 20 - 29 mmol/L Final ??? Anion Gap 02/19/2019 13 7 - 16 mmol/L Final ??? Calcium 02/19/2019 10.1 8.4 - 10.4 mg/dL Final ??? BUN 02/19/2019 21 7 - 26 mg/dL Final ??? Creatinine 02/19/2019 1.40* 0.73 - 1.18 mg/dL Final ? ? GFR, Estimated 02/19/2019 56* >60 mL/min/1.73m2 Final ? ? GFR, Est If 02/19/2019 >60 >60 mL/min/1.73m2 Final ??? Albumin 02/19/2019 4.4 3.5 - 5.0 g/dL Final ??? Phosphorus 02/19/2019 2.8 2.3 - 4.7 mg/dL Final ??? Glucose 02/19/2019 105* 70 - 100 mg/dL Final The given reference range is for the fasting state. Non-fasting reference range for glucose is 70 -180 mg/dL. ??? Hours Fasting 02/19/2019 3 Final ??? Hemoglobin 02/19/2019 15.0 13.5 - 17.5 g/dL Final ??? Microalbumin, Urine, Random 02/19/2019 7.9 mg/L Final ? ? Creatinine, Urine, Random 02/19/2019 65 >20 mg/dL Final ? ? Microalb/Creat Ratio, Urine Random 02/19/2019 12 <30 mg/g Final ??? Intact PTH 02/19/2019 55 10 - 100 pg/mL Final ??? Vitamin D, 25-OH, Total 02/19/2019 43 30 - 80 ng/mL Final Assessment: 58 y.o. male with: 1. CKD 3: Creatinine stable. Etiology is likely HTN nephrosclerosis. 2. HTN: Acceptable control. 3. Chest discomfort: it's vague but enough concerning elements to warrant a stress echocardiogram which I ordered. 4. DM2: Well controlled. Plan: 1. Stress echo. 2. No other changes at this time. 15 of today's 25 minute visit was spent in education and counseling. documented in this encounter Plan of Treatment Not on filedocumented as of this encounter Goals Goal Patient Goal Associated Recent Patient-Stated? 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 Count carbohydrates at meals and snacks. documented as of this encounter Results (ABNORMAL) Renal Function Panel - in 1 month (04/10/2019 4:26 PM CDT) [facility] Time Signature Sodium 139 136 - 145 04/10/2019 [facility] mmol/L 8:56 PM CDT LABORATORY Potassium 3.9 3.5 - 5.1 04/10/2019 [facility] mmol/L 8:56 PM CDT LABORATORY Chloride 102 98 - 109 04/10/2019 [facility] mmol/L 8:56 PM CDT LABORATORY CO2 26 20 - 29 04/10/2019 [facility] mmol/L 8:56 PM CDT LABORATORY Anion Gap 11 7 - 16 04/10/2019 [facility] mmol/L 8:56 PM CDT LABORATORY Calcium 9.6 8.4 - 10.4 04/10/2019 [facility] mg/dL 8:56 PM CDT LABORATORY BUN 19 7 - 26 04/10/2019 [facility] mg/dL 8:56 PM CDT LABORATORY Creatinine 1.60 (H) 0.73 - 04/10/2019 [facility] 1.18 mg/dL 8:56 PM CDT LABORATORY GFR, Estimated 47 (L) >60 04/10/2019 [facility] mL/min/1.7 8:56 PM CDT LABORATORY 3m2 GFR, Est If 55 (L) >60 04/10/2019 [facility] mL/min/1.7 8:56 PM CDT LABORATORY Azerbaijani 3m2 Albumin 4.3 3.5 - 5.0 04/10/2019 [facility] g/dL 8:56 PM CDT LABORATORY Phosphorus 2.9 2.3 - 4.7 04/10/2019 [facility] mg/dL 8:56 PM CDT LABORATORY Glucose 94 70 - 100 04/10/2019 [facility] mg/dL 8:56 PM CDT LABORATORY Comment: The [...] 4:29 Unknown PM CDT PM CDT Narrative [facility] - 04/10/2019 8:56 PM CDT The [...] Organization Address City/State/ZIP Code Phon e Number [facility] [id number] [place] [address] [facility] [address] [place] [address], [facility] documented in this encounter Visit Diagnoses Diagnosis Anginal pain (HRC) - Primary Other and unspecified angina pectoris Chronic kidney disease, stage III (moder ate) (HRC) Chronic kidney disease, Stage III (moder ate) Essential hypertension (HRC) Unspecified essential hypertension documented in this encounter Care Teams Director Of Plant Operations Relationship Specialty Start Date End Date Sunny Giraldo MD PCP - General Family Practice 02/21/17 08/08/20 [address] [place] [address] documented as of this encounter
--- OUTSIDE RECORDS SUMMARY | 2022-04-16 08:08 | XMS_ITS | Encounter Summary ---
:1960 Author Organization [employer] Address [address] [address] Care Team Providers Name Role Phone Sunny Giraldo MD Primary Care Provider Encounter Details Date Type Department Care Team Description 02/25/2018 Lab Visit [facility] Type 2 diabetes mellitus [address] 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 Count carbohydrates at meals and snacks. documented as of this encounter Procedures Procedure Name Priority Date/Time Associated Diagnosis Comme nts HGB A1C Routine 02/25/2018 4:58 PM Type 2 diabetes Result s for this CDT mellitus without procedure a re in the complication, without result s section. long-term current use of insulin (HRC) documented in this encounter Results Hgb A1c (02/25/2018 4:58 PM CDT) athologist Signature HGB A1C 5.5 4.0 - 5.6 % [facility] Specimen Anatomical Collection Method Collection Time Receive d Time (Source) Location / / Volume Laterality 02/25/2018 4:58 PM 8 8:54 CDT PM CDT Narrative [facility] - 02/25/2018 10:40 PM CDT Performed at [facility] [address] [place] [address] CLIA number [id number] Sunny Giraldo MD LAB_1 Performing Organization Address City/State/ZIP Code Phon e Number [facility] [address] [place] [address] documented in this encounter Visit Diagnoses Diagnosis Type 2 diabetes mellitus without complic ation, without long-term current use of insulin (HRC) documented in this encounter Care Teams Betting Clerk Relationship Specialty Start Date End Date Sunny Giraldo MD PCP - General Family Practice 02/21/17 08/08/20 [address] [place] [address] documented as of this encounter
--- OUTSIDE RECORDS SUMMARY | 2022-04-16 08:08 | XMS_ITS | Encounter Summary ---
:1960 Author Organization [employer] Address [address], [place] [address] Care Team Providers Name Role Phone Sunny Giraldo MD Primary Care Provider Reason for Visit Reason Comments IMMUNIZATION QUESTIONS Encounter Details Date Type Department Care Team Description 09/24/2018 Telephone [facility] Sunny Giraldo M D IMMUNIZATION QUESTIONS [facility] [address] [facility] [address] [place] [address] [place], [place] [phone] (Wo rk) [address] [phone] Social History Tobacco Use Types Packs/Day Years [...] documented as of this encounter Nursing Notes Rossy Adams O - 09/24/2018 10:34 AM CST Miscellaneous Questions & FYI's - Question/Concern (DO NOT use for billing and coding concerns see BEST care reporting system) What is your question or concern? Pt saw suggestions on mychart to come in for a series of labs and immunizations. Pt would like to know what he actually needs and if he needs to schedule appointment with pcp to be seen. Is it okay to leave a detailed message on your voicemail? Yes (Advise caller that the PN call back number will end with [phone] or unknown) Please route to: Appropriate pool per call routing grid [place] BRANCH MANAGER documented in this encounter Plan of Treatment Not on filedocumented as of this encounter Goals Goal Patient Goal Associated Recent Patient-Stated? Author Type Problems Progress Eating Diabetes On track No Genaro healthy Education (05/30/2017 ASHIA Crews, 4:29 PM RETAIL BRANCH MANAGER) ASHLEY, CHEIKH Note: Formatting of this note might be d ifferent from the original. Count carbohydrates at meals and snacks. documented as of this encounter Visit Diagnoses Not on filedocumented in this encounter Care Teams Fleet Coordinator Relationship Specialty Start Date End Date Sunny Giraldo MD PCP - General Family Practice 02/21/17 08/08/20 [address] [place] [address] documented as of this encounter
--- OUTSIDE RECORDS SUMMARY | 2022-04-16 08:08 | XMS_ITS | Encounter Summary ---
:1960 Author Organization [facility] Address [address], [place] [address] Care Team Providers Name Role Phone Pita Giraldo MD Primary Care Provider Reason for Visit Reason Comments Refill atorvastatin (LIPITOR) 20 MG tablet [Pharmacy Med Name: ATORVASTATIN 20 MG TABLET] Encounter Details Date Type Department Care Team Description 10/27/2018 Refill [facility] Pita Giraldo MD Refill (atorvastatin [address] (LIPITOR) 20 MG tablet [place], [place] [address] [Pharmacy Med Name: [id number] ATORVASTATIN 20 MG [phone] TABLET]) Social History Tobacco Use Types Packs/Day [...] documented as of this encounter Nursing Notes Shilpi Carbajal RN - 10/27/2018 11:50 AM CDT Renewed medication per medication refill protocol. Requested Prescriptions Pending Prescriptions Disp Refills ??? atorvastatin (LIPITOR) 20 MG tablet [Pharmacy Med Name: ATORVASTATIN 20 MG TABLET] 90 Tablet 1 Sig: TAKE 1 TAB BY MOUTH DAILY. Interface, Out [employer] (ServiceCEO) Prov Query - 10/27/2018 7:36 AM CDT atorvastatin (LIPITOR) 20 MG tablet [Pharmacy Med Name: ATORVASTATIN 20 MG TABLET] Medication started: 10/29/2017 Last ordered by PITA GIRALDO: 10/29/2017 (363 days ago) QTY: 90, Refills: 3, Sig: take 1 tab by mouth daily. (unchanged) -> Refill x 6 months, qty: 90, refills: 1 (until due for an office visit) Last qualifying visit: 02/25/2018 (with PITA GIRALDO) Next scheduled visit: None Powered by [employer], Reference: [id number], 10/27/2018 7:36:15 AM CDT, Pool: JO REFILL ([id number]) documented in this encounter Plan of Treatment Not on filedocumented as of this encounter Goals Goal Patient Goal Associated Recent Patient-Stated? Author Type Problems Progress Eating Diabetes On track No [place], healthy Education (05/30/2017 ASHIA Crews, 4:29 PM ANALYTICAL LEAD) ASHLEY, CHEIKH Note: Formatting of this note might be d ifferent from the original. Count carbohydrates at meals and snacks. documented as of this encounter Visit Diagnoses Not on filedocumented in this encounter Care Teams Veterinarian Assistant Relationship Specialty Start Date End Date Pita Giraldo MD PCP - General Family Practice 02/21/17 08/08/20 [address] [place] [address] documented as of this encounter
--- OUTSIDE RECORDS SUMMARY | 2022-04-16 08:08 | XMS_ITS | Encounter Summary ---
:1960 Author [facility] Address [address], [place] [address] Care Team Providers Name Role Phone Ptia Giraldo MD Primary Care Provider Reason for Visit Reason Comments Refill chlorthalidone (HYGROTON) 25 MG tablet [Pharmacy Med Name: CHLORTHALIDONE 25 MG TABLET] Encounter Details Date Type Department Care Team Description 12/03/2018 Refill [facility] Pita Giraldo M D Refill (chlorthalidone Medicine [address] (HYGROTON) 25 MG tablet [address] [place] [address] [Pharmacy Med Name: [place], [place] [phone] (Wo rk) CHLORTHALIDONE 25 [place] [id number] TABLET]) [phone] Social History Tobacco Use Types Packs/Day Years [...] encounter Nursing Notes Ernestine Salinas RN - 12/03/2018 6:25 PM CDT Renewed medication per medication refill protocol. Requested Prescriptions Pending Prescriptions Disp Refills chlorthalidone (HYGROTON) 25 MG tablet [Pharmacy Med Name: CHLORTHALIDONE 25 MG TABLET] 90 Tablet 0 Sig: TAKE 1 TABLET BY MOUTH DAILY. Interface, Out [employer] Prov Query - 12/03/2018 1:55 AM CDT chlorthalidone (HYGROTON) 25 MG tablet [Pharmacy Med Name: CHLORTHALIDONE 25 MG TABLET] Medication started: 05/13/2013 Last ordered by PITA GIRALDO: 10/26/2017 (403 days ago) QTY: 90, Refills: 3, Sig: take 1 tab by mouth daily. (changed but equivalent) -> Cr is abnormal (1.4 mg/dL lies outside 0.73 mg/dL - 1.18 mg/dL) -> Refill x 3 months (until due for an office visit) Last qualifying visit: 02/25/2018 (with PITA GIRALDO) Next scheduled visit: None SBP: 149 mm Hg on 02/25/2018 DBP: 96 mm Hg on 02/25/2018 Cr: 1.4 mg/dL on 07/07/2018 Na: 139 mEq/L on 07/07/2018 K: 3.7 mEq/L on 07/07/2018 Powered by [employer], Reference: [id number], 12/03/2018 1:55:24 AM CDT, Pool: JO REFILL ([id number]) documented in this encounter Plan of Treatment Not on filedocumented as of this encounter Goals Goal Patient Goal Associated Recent Patient-Stated? Author Type Problems Progress Eating Diabetes On track No Genaro healthy Education (05/30/2017 ASHIA Crews, 4:29 PM NOVELTY TWISTER OPERATOR) ASHLEY, CHEIKH Note: Formatting of this note might be d ifferent from the original. Count carbohydrates at meals and snacks. documented as of this encounter Visit Diagnoses Diagnosis Chronic kidney disease, stage III (moder ate) ([facility]) Chronic kidney disease, Stage III (moder ate) documented in this encounter Care Teams Acid Loader Relationship Specialty Start Date End Date Pita Giraldo MD PCP - General Family Practice 02/21/17 08/08/20 [address] [place] [address] documented as of this encounter
--- OUTSIDE RECORDS SUMMARY | 2022-04-16 08:08 | XMS_ITS | Encounter Summary ---
:1960 Author Organization [employer] Address [address] [address] Care Team Providers Name Role Phone Sunny Giraldo MD Primary Care Provider Reason for Visit Reason Comments LAB RESULTS Encounter Details Date Type Department Care Team Description 07/09/2018 Telephone [facility] Sunny Sawyer MD LAB RESULTS [address] [place] [address] [place] [address] [phone] (Wo rk) Social History Tobacco Use Types [...] documented as of this encounter Nursing Notes Brooke Beatty LPN - 07/09/2018 5:32 PM CST Spoke with patient about his results, let him know they were stable and to follow up in 6 mo. Patient verbalized understanding. ETING SUPPORT ASSISTANT Brooke Beatty LPN - 07/09/2018 5:31 PM CST ----- Message from Sunny Giraldo MD sent at 07/09/2018 3:49 PM MARKETING SUPPORT ASSISTANT ----- No change stable follow up in 6 months if concern any time. ETING SUPPORT ASSISTANT documented in this encounter Plan of Treatment Not on filedocumented as of this encounter Goals Goal Patient Goal Associated Recent Patient-Stated? Author Type Problems Progress Eating Diabetes On track No Genaro, healthy Education (05/30/2017 ASHIA Crews, 4:29 PM MARKETING SUPPORT ASSISTANT) ASHLEY, CHEIKH Note: Formatting of this note might be d ifferent from the original. Count carbohydrates at meals and snacks. documented as of this encounter Visit Diagnoses Not on filedocumented in this encounter Care Teams Bender Machine Relationship Specialty Start Date End Date Sunyn Giraldo MD PCP - General Family Practice 02/21/17 08/08/20 [address] [place] [address] documented as of this encounter
--- OUTSIDE RECORDS SUMMARY | 2022-04-16 08:08 | XMS_ITS | Encounter Summary ---
:1960 Author Organization [employer] Address [address], [place] [address] Care Team Providers Name Role Phone Sunny Giraldo MD Primary Care Provider Reason for Visit Reason Comments IMMUNIZATIONS Encounter Details Date Type Department Care Team Description 05/06/2018 [facility] [address] [place] [address] Social History Tobacco Use [...] healthy Education (05/30/2017 ASHIA Crews, 4:29 PM GARMENT LOOPER) ASHLEY, CHEIKH Note: Formatting of this note might be d ifferent from the original. Count carbohydrates at meals and snacks. documented as of this encounter Visit Diagnoses Not on filedocumented in this encounter Care Teams Tank Car Inspector Relationship Specialty Start Date End Date Sunny Giraldo MD PCP - General Family Practice 02/21/17 08/08/20 [address] [place] [address] documented as of this encounter
--- OUTSIDE RECORDS SUMMARY | 2022-04-16 08:08 | XMS_ITS | Encounter Summary ---
:1960 Author Organization [employer] Address [address] [place] [address] Care Team Providers Name Role Phone Sunny Giraldo MD Primary Care Provider Encounter Details Date Type Department Care Team Description 07/07/2018 Lab Visit [facility] Hyperlipidemia, unspecified hyperlipidemia type; [address] Type 2 diabetes mellitus wit hout complication, without long-term current use of insulin (HRC); [place] [address] Chronic nonalcoholic liver d isease [phone] Social History Tobacco Use Types Packs/Day Years [...] encounter Progress Notes Sunny Giraldo MD - 07/07/2018 2:40 PM CST No change stable follow up in 6 months if concern any time. ICAL ADMINISTRATOR documented in this encounter Plan of Treatment Not on filedocumented as of this encounter Goals Goal Patient Goal Associated Recent Patient-Stated? Author Type Problems Progress Eating Diabetes On track No rachel Lam Education (05/30/2017 ASHIA Crews, 4:29 PM CLERICAL ADMINISTRATOR) CHEIKH RAMIREZ Note: Formatting of this note might be d ifferent from the original. Count carbohydrates at meals and snacks. documented as of this encounter Procedures Procedure Name Priority Date/Time Associated Diagnosis Comme nts LIVER Routine 07/07/2018 2:56 PM Chronic nonalcoholic R esults for this PANEL(HEPATIC CLERICAL ADMINISTRATOR liver disease procedure are in FUNCTION PANEL) the results section. BASIC METABOLIC Routine 07/07/2018 2:56 PM Hyperlipidemia, Res ults for this PANEL CLERICAL ADMINISTRATOR unspecified procedure are i n hyperlipidemia type the resu lts section. ALBUMIN/CREAT Routine 07/07/2018 2:56 PM Type 2 diabetes Resul ts for this RATIO CLERICAL ADMINISTRATOR mellitus without procedure a re in complication, without the re sults long-term current use sectio n. of insulin (HRC) HGB A1C Routine 07/07/2018 2:56 PM Type 2 diabetes Result s for this CLERICAL ADMINISTRATOR mellitus without procedure a re in complication, without the re sults long-term current use sectio n. of insulin (HRC) documented in this encounter Results (ABNORMAL) Liver Panel(Hepatic Function Panel) (07/07/2018 2:56 PM CLERICAL ADMINISTRATOR) [facility] gist Method Time Signature Alk Phos 45 40 - 150 PN SOFT U/L Bilirubin Total 1.6 (H) 0.2 - 1.2 PN SOFT mg/dL Bilirubin, Direct 0.5 0.0 - 0.5 PN SOFT mg/dL Protein Total, Serum 7.5 6.4 - 8.3 PN SOFT g/dL Albumin 4.6 3.4 - 5.0 PN SOFT g/dL Aspartate 22 10 - 40 PN SOFT Aminotransferase U/L Alanine 27 9 - 55 PN SOFT Aminotransferase U/L Specimen Anatomical Collection Method Collection Time Receive d Time (Source) Location / / Volume Laterality 07/07/2018 2:56 PM 8 5:05 CLERICAL ADMINISTRATOR PM CLERICAL ADMINISTRATOR Narrative PN SOFT - 07/07/2018 5:31 PM CLERICAL ADMINISTRATOR Performed at [facility], [address] [place] [address] CLIA number [id number] Sunny Giraldo MD LAB_1 Performing Organization Address [facility]/ZIP Code Phon e Number PN SOFT [address] [place] [address] Microalbumin Urine Random (UMAR) (07/07/2018 2:56 PM CLERICAL ADMINISTRATOR) athologist Signature Microalbumin 18.5 mg/L PN SOFT Urine U Creat Random 124 mg/dL PN SOFT Microalbumin/Crea 14.9 0.0 - 30.0 PN SOFT tinine Ratio Specimen Anatomical Collection Method Collection Time Receive d Time (Source) Location / / Volume Laterality Urine specimen 07/07/2018 2:56 PM 018 5:05 (specimen) CLERICAL ADMINISTRATOR PM CLERICAL ADMINISTRATOR Narrative PN SOFT - 07/07/2018 6:09 PM CLERICAL ADMINISTRATOR Performed at [facility], [address] [place] [address] CLIA number [id number] Sunny Giraldo MD LAB_1 Performing Organization Address [facility] Phon e Number PN SOFT [address] [place] [address] Hgb A1c (07/07/2018 2:56 PM CLERICAL ADMINISTRATOR) athologist Signature HGB A1C 5.5 4.0 - 5.6 % PN SOFT Specimen Anatomical Collection Method Collection Time Receive d Time (Source) Location / / Volume Laterality 07/07/2018 2:56 PM 8 8:04 CLERICAL ADMINISTRATOR PM CLERICAL ADMINISTRATOR Narrative PN SOFT - 07/07/2018 11:46 PM CLERICAL ADMINISTRATOR Performed at [facility], [facility] [place] [address] CLIA number [id number] Sunny Giraldo MD LAB_1 Performing Organization Address [facility] Phon e Number PN SOFT [address] [place] [address] (ABNORMAL) Basic Metabolic Panel (07/07/2018 2:56 PM CLERICAL ADMINISTRATOR) Analysis Performed At [facility] Time Signature Creatinine 1.40 (H) 0.73 - PN SOFT Serum 1.18 mg/dL Lab Glucose 90 70 - 100 PN SOFT mg/dL Comment: The stated glucose range is for the fast ing state. Non-fasting glucose range is 70-180 mg/d L CO2 26 22 - 31 mmol/L PN SOFT Chloride 102 98 - 109 mmol/L PN SOFT Potassium 3.7 3.5 - 5.2 mmol/L PN SOFT Sodium 139 136 - 145 mmol/L PN SOFT Blood Urea Nitrogen 19 9 - 26 mg/dL PN SOFT Calcium 9.9 8.4 - 10.4 mg/dL PN SOFT Est GFR Am >60 >60 mL/min/1.73m2 PN SOFT Est GFR Non-Afr Am 56 (L) >60 mL/min/1.73m2 PN SOFT Comment: Normal>60, moderate decrease 30 - 59, se alexia decrease 15 - 29, renal failure <15 mL/min/1.73 m2 NOTE: ??Choose the eGFR result above jamie ropriate for the race of the patient. Specimen Anatomical Collection Method Collection Time Receive d Time (Source) Location / / Volume Laterality 07/07/2018 2:56 PM 8 5:05 CLERICAL ADMINISTRATOR PM CLERICAL ADMINISTRATOR Narrative PN SOFT - 07/07/2018 5:31 PM CLERICAL ADMINISTRATOR Performed at [facility], [address] [place] [address] CLIA number [id number] Sunny Giraldo MD LAB_1 Performing Organization Address City/State/ZIP Code Phon e Number PN SOFT [address] [place] [address] documented in this encounter Visit Diagnoses Diagnosis Hyperlipidemia, unspecified hyperlipidem ia type (HRC) Type 2 diabetes mellitus without complic ation, without long-term current use of insulin (HRC) Chronic nonalcoholic liver disease (HRC) Unspecified chronic liver disease withou t mention of alcohol documented in this encounter Care Teams Laminated Plastics Assembler And Gluer Relationship Specialty Start Date End Date Sunny Giraldo MD PCP - General Family Practice 02/21/17 08/08/20 [address] [place] [address] documented as of this encounter
--- OUTSIDE RECORDS SUMMARY | 2022-04-16 08:08 | XMS_ITS | Encounter Summary ---
:1960 Author Organization [facility] Address [address], [place] [address] Care Team Providers Name Role Phone Pita Giraldo MD Primary Care Provider Reason for Visit Reason Onset Date Comments Refill 01/05/2019 metFORMIN (GLUCOPHAG E) 500 MG tablet Encounter Details Date Type Department Care Team Description 01/05/2019 Refill [facility] Pita Giraldo M D Refill (metFORMIN Medicine [address] (GLUCOPHAGE) [address] [place] [address] tablet) [place], [place] [phone] (Wo rk) [address] [phone] Social History Tobacco Use Types Packs/Day Years [...] encounter Nursing Notes Neel Mccain RN - 01/05/2019 8:54 AM CDT Renewed medication per medication refill protocol. Requested Prescriptions Pending Prescriptions Disp Refills metFORMIN (GLUCOPHAGE) 500 MG tablet 360 Tablet 0 Sig: Take 2 Tablets by mouth two times a day. Interface, Out Isrraelriheather Prov Query - 01/05/2019 8:24 AM CDT metFORMIN (GLUCOPHAGE) 500 MG tablet Medication started: 02/22/2017 Last ordered by PITA GIRALDO: 10/16/2018 (81 days ago) QTY: 360, Refills: 0, Sig: take 2 tablets by mouth twice a day (changed but equivalent) -> GFR (CrCl) estimated is abnormal (56 ml/min is less than 60.0 ml/min) -> Refill x 3 months (courtesy refill, overdue for a(n) Rapid A1C check) Last qualifying visit: 02/25/2018 (with PITA GIRALDO) Next scheduled visit: None GFR (CrCl) estimated: 56 ml/min on 07/07/2018 Rapid A1C : 5.5 % on 07/07/2018 PATIENT IS DUE FOR: - HBA1C (PN ONLY) (Sent to [facility]) Powered by [employer], Reference: [id number], 01/05/2019 8:24:17 AM CDT, Pool: PN REFILL WIZARD ADMIN ([id number]) documented in this encounter Plan of Treatment Not on filedocumented as of this encounter Goals Goal Patient Goal Associated Recent Patient-Stated? Author Type Problems Progress Eating Diabetes On track No Genaro, healthy Education (05/30/2017 ASHIA Crews, 4:29 PM ENDS DOWN CHECKER) ASHLEY, CHEIKH Note: Formatting of this note might be d ifferent from the original. Count carbohydrates at meals and snacks. documented as of this encounter Visit Diagnoses Not on filedocumented in this encounter Care Teams Buggy Man Relationship Specialty Start Date End Date Pita Giraldo MD PCP - General Family Practice 02/21/17 08/08/20 [address] [place] [address] documented as of this encounter
--- OUTSIDE RECORDS SUMMARY | 2022-04-16 08:08 | XMS_ITS | Encounter Summary ---
:1960 Author Organization [employer] Address [address], [place] [address] Care Team Providers Name Role Phone Sunny Giraldo MD Primary Care Provider Reason for Visit Reason Comments ROUTINE HEALTH MAINTENANCE Encounter Details Date Type Department Care Team Description 09/26/2018 Telephone [facility] Sunny Giraldo M D ROUTINE HEALTH Medicine [address] MA[address]TENANCE [address] [place] [address] [place], [place] [phone] (Wo rk) [address] [phone] Social History Tobacco Use Types Packs/Day Years [...] documented as of this encounter Nursing Notes Willow Ren CMA - 09/26/2018 10:22 AM CST Notified patient that these orders start in December. He was making sure that no labs were still requirefrom provider. ESSOR OF VIOLIN Denisha Duong - 09/26/2018 10:05 AM CST Miscellaneous Questions & FYI's - Question/Concern (DO NOT use for billing and coding concerns see BEST care reporting system) What is your question or concern? pts spouse (no disclosure) calling to question how pt goes about taking care of overdue preventativecare concerns indicated in MyChart. Is it okay to leave a detailed message on your voicemail? Yes (Advise caller that the PN call back number will end with [phone] or unknown) Please route to: Appropriate pool per call routing grid E[employer]OR [employer]OLIN documented in this encounter Plan of Treatment Not on filedocumented as of this encounter Goals Goal Patient Goal Associated Recent Patient-Stated? Author Type Problems Progress Eating Diabetes On track No Genaro healthy Education (05/30/2017 ASHIA Crews, 4:29 PM PROFESSOR OF VIOLIN) ASHLEY, CHEIKH Note: Formatting of this note might be d ifferent from the original. Count carbohydrates at meals and snacks. documented as of this encounter Visit Diagnoses Not on filedocumented in this encounter Care Teams Order Department Supervisor Relationship Specialty Start Date End Date Sunny Giraldo MD PCP - General Family Practice 02/21/17 08/08/20 [address] [place] [address] documented as of this encounter
--- OUTSIDE RECORDS SUMMARY | 2022-04-16 08:08 | XMS_ITS | Encounter Summary ---
:1960 Author Organization [facility] Address [address], [place] [address] Care Team Providers Name Role Phone Pita Giraldo MD Primary Care Provider Reason for Visit Reason Comments Refill metFORMIN (GLUCOPHAGE) 500 M G tablet [Pharmacy Med Name: METFORMIN HCL 500 MG TABLET] Encounter Details Date Type Department Care Team Description 05/05/2018 Refill [facility] Pita Giraldo MD Refill (metFORMIN [address]ab[address] (GLUCOPHAGE) 500 MG [address] [place] [address] tablet [Pharmacy Med [place], [place] [address] Name: METFORMIN HCL 500 [phone] MG TABLET ]) Social History Tobacco Use [...] documented as of this encounter Nursing Notes Pita Giraldo MD - 05/06/2018 1:05 PM CDT Done. Kinsey Castillo RN - 05/06/2018 11:09 AM CDT Further Assistance Needed on Refill from Clinician RN reviewed. Signed order needed. Requested medication listed as historical Last ov 02/25/18 Pt is taking 2 500mg tabs bid Close encounter Requested Prescriptions Pending Prescriptions Disp Refills ??? metFORMIN (GLUCOPHAGE) 500 MG tablet [Pharmacy Med Name: METFORMIN HCL 500 MG TABLET] 360 Tablet1 Sig: TAKE 2 TABLETS BY MOUTH TWICE A DAY Vivi Wright RN - 05/05/2018 9:48 AM CDT Further Assistance Needed on Refill from Nursing/Triage Please clarify how patient is taking medication. Different dose/sig on medication list Next steps: Nursing/Triage to complete refill as appropriate. Requested Prescriptions Pending Prescriptions Disp Refills ??? metFORMIN (GLUCOPHAGE) 500 MG tablet [Pharmacy Med Name: METFORMIN HCL 500 MG TABLET] 360 Tablet1 Sig: TAKE 2 TABLETS BY MOUTH TWICE A DAY Cele Woods - 05/05/2018 9:44 AM CDT Caller states that the pt is out of meds Interface, Out Surescripts Prov Query - 05/05/2018 9:26 AM CDT metFORMIN (GLUCOPHAGE) 500 MG tablet [Pharmacy Med Name: METFORMIN HCL 500 MG TABLET] Medication started: 02/22/2017 Last ordered by PITA GIRALDO: 03/30/2017 (401 days ago) QTY: 360, Refills: 3, Sig: take 2 tabs by mouth two times a day. (changed but equivalent) -> The requested strength (500 mg oral tablet) was last ordered on 03/30/2017. The patient is taking 1000 mg oral tablet as of 10/26/2017. -> This medication was discontinued on 10/26/2017 by PITA GIRALDO. -> GFR (CrCl) estimated is abnormal (56 ml/min is less than 60.0 ml/min) -> Refill x 6 months, qty: 360, refills: 1 (until due for a(n) Rapid A1C check) Last qualifying visit: 02/25/2018 (with PITA GIRALDO) Next scheduled visit: None GFR (CrCl) estimated: 56 ml/min on 01/28/2018 Rapid A1C : 5.5 % on 02/25/2018 Powered by [employer], Reference: [id number], 05/05/2018 9:26:33 AM CDT, Pool: DENNIS FP REFILL ([id number]) Electronically signed by Interface, Out [employer] Prov Query at 06/05/2018 1:32 AM LETTER STAMPING MACHINE OPERATOR documented in this encounter Plan of Treatment Not on filedocumented as of this encounter Goals Goal Patient Goal Associated Recent Patient-Stated? Author Type Problems Progress Eating Diabetes On track Kelin Lam healthy Education (05/30/2017 ASHIA Crews, 4:29 PM LETTER STAMPING MACHINE OPERATOR) ASHLEY, CHEIKH Note: Formatting of this note might be d ifferent from the original. Count carbohydrates at meals and snacks. documented as of this encounter Visit Diagnoses Diagnosis Type 2 diabetes mellitus without complic ation, without long-term current use of insulin (HRC) documented in this encounter Care Teams Fret Saw Operator Relationship Specialty Start Date End Date Pita Giraldo MD PCP - General Family Practice 02/21/17 08/08/20 [address] [place] [address] documented as of this encounter
--- OUTSIDE RECORDS SUMMARY | 2022-04-16 08:08 | XMS_ITS | Encounter Summary ---
:1960 Author Organization [employer] Address [address] [address] Care Team Providers Name Role Phone Pita Giraldo MD Primary Care Provider Reason for Visit Reason Onset Date Comments Refill 10/01/2018 losartan (COZAAR) 25 MG tablet Encounter Details Date Type Department Care Team Description 10/01/2018 Refill [facility] Pita Giraldo M D Refill (losartan Medicine [address] (COZAAR) 25 MG tablet) [address] [place] [place] [address] [place], [place] [phone] (Wo rk) [address] [phone] Social History Tobacco Use Types Packs/Day Years [...] documented as of this encounter Nursing Notes Nele Mccain RN - 10/02/2018 9:17 AM CDT Renewed medication per medication refill protocol. Requested Prescriptions Pending Prescriptions Disp Refills losartan (COZAAR) 25 MG tablet 90 Tablet 1 Sig: Take 1 Tablet by mouth daily. Interface, Out Nicko Prov Query - 10/01/2018 4:58 PM CDT losartan (COZAAR) 25 MG tablet Medication started: 06/22/2013 Last ordered by PITA GIRALDO: 10/26/2017 (340 days ago) QTY: 90, Refills: 3, Sig: take 1 tab by mouth daily. (changed but equivalent) -> Cr is abnormal (1.4 mg/dL lies outside 0.73 mg/dL - 1.18 mg/dL) -> Refill x 6 months, qty: 90, refills: 1 (until due for an office visit) Last qualifying visit: 02/25/2018 (with PITA GIRALDO) Next scheduled visit: None SBP: 149 mm Hg on 02/25/2018 DBP: 96 mm Hg on 02/25/2018 Cr: 1.4 mg/dL on 07/07/2018 K: 3.7 mEq/L on 07/07/2018 Powered by [employer], Reference: [id number], 10/01/2018 4:58:08 PM CDT, Pool: JO REFILL ([id number]) documented in this encounter Plan of Treatment Not on filedocumented as of this encounter Goals Goal Patient Goal Associated Recent Patient-Stated? Author Type Problems Progress Eating Diabetes On track No Genaro healthy Education (05/30/2017 ASHIA Cerws, 4:29 PM BLACK TOP RAKER) CHEIKH RAMIREZ Note: Formatting of this note might be d ifferent from the original. Count carbohydrates at meals and snacks. documented as of this encounter Visit Diagnoses Diagnosis Chronic kidney disease, stage III (moder ate) ([facility]) Chronic kidney disease, Stage III (moder ate) documented in this encounter Care Teams Grain Elevator Clerk Relationship Specialty Start Date End Date Pita Giraldo MD PCP - General Family Practice 02/21/17 08/08/20 [address] [place] [address] documented as of this encounter
--- OUTSIDE RECORDS SUMMARY | 2022-04-16 08:09 | XMS_ITS | Encounter Summary ---
:1960 Author Organization [employer] Address [address] [place] [address] Care Team Providers Name Role Phone Sunny Giraldo MD Primary Care Provider Encounter Details Date Type Department Care Team Description 02/23/2017 Lab Visit [facility] Type 2 diabetes mellitus [address] without complication, [place] [address] without long-term current [phone] use of insulin (HRC) Social History Tobacco [...] Not on filedocumented as of this encounter Procedures Procedure Name Priority Date/Time Associated Diagnosis Comme nts LIPID PANEL AND Routine 02/23/2017 9:28 AM Type 2 diabetes Res ults for this DIRECT LDL(IF CDT mellitus without procedure are in NEEDED) complication, the results without long-term section. current use of insulin (HRC) documented in this encounter Results (ABNORMAL) Lipid Panel - LDLD If Trig High (02/23/2017 9:28 AM CDT) [facility] gist Method Time Signature Cholesterol 197 0 - 199 PN SOFT mg/dL Triglycerides 317 (H) 4 - 149 PN SOFT mg/dL HDL Cholesterol 30 (L) >39 mg/dL PN SOFT Cholesterol/HDL 6.6 PN SOFT Ratio Screen LDL Calculated 104 19 - 130 PN SOFT mg/dL Length Of Fast 13.0 PN SOFT Specimen Anatomical Collection Method Collection Time Receive d Time (Source) Location / / Volume Laterality 02/23/2017 9:28 AM 7 3:16 CDT PM CDT Narrative PN SOFT - 02/23/2017 3:43 PM CDT Performed at [facility], [address] [place] [address] CLIA number [id number] Sunny Giraldo MD LAB_1 Performing Organization Address City/State/ZIP Code Phon e Number PN SOFT [address] [place] [address] documented in this encounter Visit Diagnoses Diagnosis Type 2 diabetes mellitus without complic ation, without long-term current use of insulin (HRC) documented in this encounter Care Teams Computer Animator Relationship Specialty Start Date End Date Sunny Giraldo MD PCP - General Family Practice 02/21/17 08/08/20 [address] [place] [address] documented as of this encounter
--- OUTSIDE RECORDS SUMMARY | 2022-04-16 08:09 | XMS_ITS | Encounter Summary ---
:1960 Author Organization [employer] Address [address], [place] [address] Care Team Providers Name Role Phone Pita Giraldo MD Primary Care Provider Reason for Visit Reason Comments Refill metFORMIN (GLUCOPHAGE) 500 M G tablet [Pharmacy Med Name: METFORMIN HCL 500 MG TABLET] Encounter Details Date Type Department Care Team Description 03/20/2017 Refill [facility] Pita Giraldo M D Refill (metFORMIN Medicine [address] (GLUCOPHAGE) [address] [place] [address] tablet [Pharmacy Med [place], [place] [phone] (Wo rk) Name: METFORMIN HCL 500 [id number] MG TABLET]) [phone] Social History Tobacco Use Types Packs/Day Years [...] documented as of this encounter Nursing Notes TreKianna mehta LPN - 03/26/2017 12:03 PM CDT Bryce notified per phone of Dr. Giraldo's message. Pita Giraldo MD - 03/26/2017 10:38 AM CDT Pt need DM follow up next month,but creatine and potasium this or next week ,just lab please. Med been refilled. Tanvi Cortes - 03/26/2017 9:54 AM CDT Pt.'s said pt. Is out of medication. Please advise. Sydnee Martines RN - 03/25/2017 10:00 PM CDT Further assistance needed to complete refill request Reason: Medication newly ordered within past 12 months. Next Steps: Review pended order for accuracy. Sign. Route to frontline pool to schedule appt. If needed. Requested Prescriptions Pending Prescriptions Disp Refills ??? metFORMIN (GLUCOPHAGE) 500 MG tablet [Pharmacy Med Name: METFORMIN HCL 500 MG TABLET] 180 Tab 0 Sig: Take 1 Tab by mouth two times a day. Interface, Out Surescripts Prov Query - 03/20/2017 10:42 AM CDT metFORMIN (GLUCOPHAGE) 500 MG tablet [Pharmacy Med Name: METFORMIN HCL 500 MG TABLET] Medication started: 02/22/2017 Last ordered by PITA GIRALDO: 02/22/2017 (26 days ago) QTY: 60, Refills: 0, Sig: for 1 week 1 pill with dinner then 1 pill bid follow up in 2 weeks (changed) -> This medication may not have been authorized by the requested provider. -> The requested sig has changed from the last order. -> Rapid A1C is abnormal (9.3 % is greater than 8.0 %) -> Refill x 3 months (until due for a(n) Rapid A1C check) -> Calculate quantity and refills manually. They could not be estimated due to missing or unreadable information. Last qualifying visit: 03/15/2017 (with PITA GIRALDO) Next scheduled visit: None GFR (CrCl) estimated: >60 ml/min on 03/15/2017 Rapid A1C : 9.3 % on 02/19/2017 Powered by [employer], Reference: [id number], 03/20/2017 10:42:18 AM CDT, Pool: JO REFILL ([id number]) documented in this encounter Plan of Treatment Not on filedocumented as of this encounter Visit Diagnoses Not on filedocumented in this encounter Care Teams Leak Inspector Relationship Specialty Start Date End Date Pita Giraldo MD PCP - General Family Practice 02/21/17 08/08/20 [address] [place] [address] documented as of this encounter
--- OUTSIDE RECORDS SUMMARY | 2022-04-16 08:09 | XMS_ITS | Encounter Summary ---
:1960 Author Organization [facility] Address [address], [place] [address] Care Team Providers Name Role Phone Pita Giraldo MD Primary Care Provider Reason for Visit Reason Onset Date Comments Refill 09/05/2017 chlorthalidone (HYGR OTON) 25 MG tablet Encounter Details Date Type Department Care Team Description 09/05/2017 [address]ill [facility] Pita Giraldo M D Refill (chlorthalidone Medicine [address] (HYGROTON) 25 MG tablet) [address] [place] [address] [place], [place] [phone] (Wo rk) [id number] [phone] Social History Tobacco Use Types Packs/Day Years [...] encounter Nursing Notes Ernestine Salinas RN - 09/05/2017 12:58 PM CST Renewed medication per medication refill protocol. Requested Prescriptions Pending Prescriptions Disp Refills chlorthalidone (HYGROTON) 25 MG tablet 90 Tab 2 Sig: Take 1 Tab by mouth daily. KER LAYER Interface, Out Surescripts Prov Query - 09/05/2017 10:33 AM CST chlorthalidone (HYGROTON) 25 MG tablet Medication started: 05/13/2013 Last ordered by PITA GIRALDO: 03/15/2017 (174 days ago) QTY: 90, Refills: 0, Sig: take 1 tab by mouth daily. (unchanged) -> Cr is abnormal (1.3 mg/dL lies outside 0.73 mg/dL - 1.18 mg/dL) -> Refill x 9 months, qty: 90, refills: 2 (until due for an office visit) Last qualifying visit: 03/15/2017 (with PITA GIRALDO) Next scheduled visit: None SBP: 121 mm Hg on 05/30/2017 DBP: 84 mm Hg on 05/30/2017 Cr: 1.3 mg/dL on 04/24/2017 Na: 139 mEq/L on 04/24/2017 K: 3.7 mEq/L on 04/24/2017 Powered by [employer], Reference: [id number], 09/05/2017 10:33:08 AM BREAKER LAYER, Pool: JO REFILL ([id number]) KER LAYER documented in this encounter Plan of Treatment Not on filedocumented as of this encounter Goals Goal Patient Goal Associated Recent Patient-Stated? Author Type Problems Progress Eating Diabetes On track No Genaro, healthy Education (05/30/2017 ASHIA Crews, 4:29 PM BREAKER LAYER) ASHLEY, CHEIKH Note: Formatting of this note might be d ifferent from the original. Count carbohydrates at meals and snacks. documented as of this encounter Visit Diagnoses Diagnosis Chronic kidney disease, stage III (moder ate) ([facility]) Chronic kidney disease, Stage III (moder ate) documented in this encounter Care Teams Central Melt Specialist Relationship Specialty Start Date End Date Pita Giraldo MD PCP - General Family Practice 02/21/17 08/08/20 [address] [place] [address] documented as of this encounter
--- OUTSIDE RECORDS SUMMARY | 2022-04-16 08:09 | XMS_ITS | Encounter Summary ---
:1960 Author Organization [employer] Address [address], [place] [address] Care Team Providers Name Role Phone Sunny Giraldo MD Primary Care Provider Reason for Visit Reason Comments Type 2 Diabetes Uncontrolled Patient Education Consult/Transfer Care (Routine) - Closed Specialty Diagnoses / Procedures Referred By Contact Refer red To Contact Diagnoses Type 2 diabetes mellitus without complication, without long-term current use of insulin ([facility]) [place] [address] [place] [address] Referral ID Status Reason Start Date Expiration Date Visits Requ ested Visits Authorized [id number] Closed 02/22/2017 05/24/2018 1 1 Encounter Details Date Type Department Care Team Description 02/26/2017 Office Visit [facility] ontrolled type 2 Diabet diabetes mellitus with [address] hyperglycemia, [place] [address] long-term current use of [phone] insulin (HRC) ( Primary Dx) Social History Tobacco Use Types Packs/Day Years [...] on file documented as of this encounter Patient Instructions Patient InstructionsMelissa Villeda RN, CDE - 02/26/2017 1:00 PM CDT Bryce Mosley 1960 02/26/2017 A Note From Your [facility] Beater Out Leveling Machine Check your blood sugar three times daily: - When you wake up, before you eat or drink - Before one other meal (lunch or evening meal) - 1-2 hours after that same meal Blood Sugar Targets: Before eating 70-130 mg/dl 1-2 hours after start of meal 70-180 mg/dl *Goal is to have most blood sugars in target. Please bring your record book and meter to your follow up visit. Please call [facility] if you have any questions or concerns at [phone]. documented in this encounter Progress Notes Melissa Villeda RN, CDE - 02/26/2017 1:00 PM CDT DIAGNOSIS: Type 2 Diabetes VISIT TYPE: Initial REFERRED BY: Sunny Giraldo MD SUBJECTIVE/OBJECTIVE: Met with Bryce and his , Veronica. Newly diagnosed with Type 2 diabetes in with A1C 9.3%(02/19/2017). Sees a hand roller regularly for kidney disease, and found to have elevated BG during a routine visit there. Also has diagnosis of liver disease - most recent ALT 64 on 02/19/2017. Family history: Grandmother had diabetes, and sister has pre-diabetes. Started Metformin earlier this week, and is tolerating well at this point. He plans to titrate to 500 mg twice daily next week. Provided overview of diabetes, diagnosis, A1C lab test, symptoms, and treatment options. Initially patient seemed extremely guarded, though opened up more as the visit went along, and endedup asking really great questions. He seemed to grasp information easily. Testing: Taught glucose monitoring using an Accu-Chek Guide meter. Patient has not started glucose monitoring. Glucose Value Today: 142 mg/dL Fasting 12+ hr pp. Current Diabetes Medications: Oral: -Metformin (Glucophage) 500-0-0-0. Titrating to 500 mg twice a day as tolerated, dose will go up next week. ASSESSMENT/PLAN: Recommended Diabetes Medications: No change Glucose Goals: Type 2: Before meals: 70-130 mg/dL 1-2 hrs pp: No more than 50 mg/dL higher than before meal and < 180 mg/dL Bedtime: 90-150 mg/dL A1C < 7.0% Frequency: Daily before morning meal, before main meal, 1-2 hours after starting main meal. EDUCATION VISIT INCLUDED: Overview of Diabetes Glucose Monitoring Diabetes Medications Hypoglycemia Hyperglycemia Complications Emotional Health Time spent with patient: 60 minutes Written Diabetes Education Materials Given Yanci Xie RD, CDE - 02/26/2017 1:00 PM CDT DIAGNOSIS: Type 2 Diabetes VISIT TYPE: Initial DATE OF DIAGNOSIS: 2016 SUBJECTIVE/OBJECTIVE/ASSESSMENT: Attended session with support person his INITIAL VISIT: Made positive changes since the diagnosis of diabetes by reducing snack intake, stopping regular soda intake, and losing weight Eats 3 meals a day. Trying to choose healthier meal options. Has been looking at sugar content on food labels lately, wanting to know how much carb to eat at meals/snacks. Patient hopes to improve blood sugars Nutrition Diagnosis: Food and Nutrition Related Knowledge Deficit/related to lack of exposure to information/as evidenced by new or recent diagnosis of diabetes or pre-diabetes. PLAN: Begin/continue the following meal plan:Carbohydrate counting (My Food Plan) Recommended Carbohydrate Choices (1 choice = 15 grams carbohydrate) 3-5 per Meal, 0-2 per Snack. Additional education: Exercise: encouraged as tolerated See RN note for medication adjustments and additional recommendations Follow-up: Return for education visit with written BG and food records in: 2-3 weeks Patient will contact IDC or PCP regarding blood glucose concerns. Education Visit Included: Overview/Review of Diabetes Nutrition Goals, Meal Consistency, Portions Carbohydrate Counting, Label Reading Exercise Hypoglycemia Hyperglycemia Time spent with patient: 45 minutes Written Diabetes Education Materials Given documented in this encounter Plan of Treatment Not on filedocumented as of this encounter Visit Diagnoses Diagnosis Uncontrolled type 2 diabetes mellitus wi th hyperglycemia, without long-term current use of insulin (HRC) - Primary documented in this encounter Care Teams Business Process Modeler Relationship Specialty Start Date End Date Sunny Giraldo MD PCP - General Family Practice 02/21/17 08/08/20 [address] [place] [address] documented as of this encounter
--- OUTSIDE RECORDS SUMMARY | 2022-04-16 08:09 | XMS_ITS | Encounter Summary ---
:1960 Author Organization [employer] [employer] Address [address], [place] [address] Care Team Providers Name Role Phone Sunny Giraldo MD Primary Care Provider Encounter Details Date Type Department Care Team Description 01/28/2018 Lab Visit [facility] Chronic kidney disease [address] (CKD), stage III (moderate) [place] [address] ([facility]) [phone] Social History Tobacco Use Types Packs/Day Years [...] Education (05/30/2017 ASHIA Crews, 4:29 PM MANAGER AUDIO) ASHLEY, CHEIKH Note: Formatting of this note might be d ifferent from the original. Count carbohydrates at meals and snacks. documented as of this encounter Procedures Procedure Name Priority Date/Time Associated Diagnosis Comme nts VITAMIN D Routine 01/28/2018 11:42 AM Chronic kidney Result s for this 25-HYDROXY, TOTAL CDT disease (CKD), stage pr ocedure are in III (moderate) ([facility]) the res ults section. RENAL FUNCTION Routine 01/28/2018 11:42 AM Chronic kidney Resu lts for this PANEL CDT disease (CKD), stage procedu re are in III (moderate) ([facility]) the res ults section. INTACT PTH Routine 01/28/2018 11:42 AM Chronic kidney Result s for this CDT disease (CKD), stage procedu re are in III (moderate) ([facility]) the res ults section. HEMOGLOBIN, BLOOD Routine 01/28/2018 11:42 AM Chronic kidney R esults for this CDT disease (CKD), stage procedu re are in III (moderate) ([facility]) the res ults section. ALBUMIN/CREAT RATIO Routine 01/28/2018 11:42 AM Chronic kidney Results for this CDT disease (CKD), stage procedu re are in III (moderate) ([facility]) the res ults section. documented in this encounter Results Microalbumin Urine Random - in 1 month (01/28/2018 11:42 AM CDT) athologist Signature Microalbumin <10.0 mg/L PN SOFT Urine U Creat Random 50 mg/dL PN SOFT Microalbumin/Crea <10.0 0.0 - 30.0 PN SOFT tinine Ratio Specimen Anatomical Collection Method Collection Time Receive d Time (Source) Location / / Volume Laterality Urine specimen 01/28/2018 11:42 8 2:14 (specimen) AM CDT PM CDT Narrative PN SOFT - 01/28/2018 2:36 PM CDT Performed at [facility], [address] [place] [address] CLIA number [id number] Terrence Hernandez MD LAB_1 Performing Organization Address City/State/ZIP Code Phon e Number PN SOFT [address] [place] [address] Vitamin D (In house) - in 1 month (01/28/2018 11:42 AM CDT) athologist Signature Vitamin D 25 Oh 38 20 - 80 PN SOFT ng/mL Comment: Deficiency = <20 Adequate ??= 20-29 Preferred = 30-50 Uncertain safety = 51-80 High = >80 Specimen Anatomical Collection Method Collection Time Receive d Time (Source) Location / / Volume Laterality 01/28/2018 11:42 01/28/2018 3:03 AM CDT PM CDT Narrative PN SOFT - 01/28/2018 3:59 PM CDT [place] [address] CLIA number [id number] Terrence Hernandez MD LAB_1 Performing Organization Address [facility] Phon e Number PN SOFT [address] [place] [address] PTH - Parathyroid Hormone Intact - in 1 month (01/28/2018 11:42 AM CDT) athologist [facility] PTH 40 10 - 100 PN SOFT pg/mL Specimen Anatomical Collection Method Collection Time Receive d Time (Source) Location / / Volume Laterality 01/28/2018 11:42 01/28/2018 4:10 AM CDT PM CDT Narrative PN SOFT - 01/28/2018 4:54 PM CDT Performed at [address] [address] CLIA number [id number] Terrence Hernandez MD LAB_1 Performing Organization Address [facility] Phon e Number PN SOFT [address] [place] [address] Hemoglobin - in 1 month (01/28/2018 11:42 AM CDT) athologist Signature Hemoglobin 14.7 13.4 - 17.5 PN SOFT g/dL Specimen Anatomical Collection Method Collection Time Receive d Time (Source) Location / / Volume Laterality 01/28/2018 11:42 01/28/2018 AM CDT 11:42 AM CDT Narrative PN SOFT - 01/28/2018 11:47 AM CDT Performed at [facility], [facility] [address] [place] [address] CLIA number [id number] Terrence Hernandez MD LAB_1 Performing Organization Address [facility] Phon e Number PN SOFT [address] [place], [place] [address] (ABNORMAL) Renal Function Panel - in 1 month (01/28/2018 11:42 AM CDT) Analysis [facility]formed [facility] Time Signature Glucose Non 106 70 - 180 PN SOFT Fasting mg/dL Sodium 139 136 - 145 PN SOFT mmol/L Potassium 3.8 3.5 - 5.2 PN SOFT mmol/L Chloride 101 98 - 109 PN SOFT mmol/L Blood Urea 22 9 - 26 PN SOFT Nitrogen mg/dL Albumin 4.4 3.4 - 5.0 PN SOFT g/dL Calcium 10.4 8.4 - 10.4 PN SOFT mg/dL Phosphorus 4.2 2.3 - 4.7 PN SOFT Serum mg/dL CO2 28 22 - 31 PN SOFT mmol/L Creatinine 1.30 (H) 0.73 - PN SOFT Serum 1.18 mg/dL Est GFR >60 >60 PN SOFT Am mL/min/1.7 3m2 Est GFR Non-Afr >60 >60 PN SOFT Am mL/min/1.7 3m2 Comment: Normal>60, moderate decrease 30 - 59, se alexia decrease 15 - 29, renal failure <15 mL/min/1.73 m2 NOTE: ??Choose the eGFR result above jamie ropriate for the race of the patient. Specimen Anatomical Collection Method Collection Time Receive d Time (Source) Location / / Volume Laterality 01/28/2018 11:42 01/28/2018 2:14 AM CDT PM CDT Narrative PN SOFT - 01/28/2018 2:41 PM CDT Performed at [facility], [address] [place] [address] CLIA number [id number] Terrence Hernandez MD LAB_1 Performing Organization Address [facility] Phon e Number PN SOFT [address] [place] [address] documented in this encounter Visit Diagnoses Diagnosis Chronic kidney disease (CKD), stage III (moderate) ([facility]) Chronic kidney disease, Stage III (moder ate) documented in this encounter Care Teams Gym Teacher Relationship Specialty Start Date End Date Ozbek, Yakup, MD PCP - General Family Practice 02/21/17 08/08/20 [address] [place] [address] documented as of this encounter
--- OUTSIDE RECORDS SUMMARY | 2022-04-16 08:09 | XMS_ITS | Encounter Summary ---
:1960 Author Organization [employer] Address [address], [place] [address] Care Team Providers Name Role Phone Sunny Giraldo MD Primary Care Provider Reason for Visit Reason Comments Type 2 Diabetes Uncontrolled Patient Education Encounter Details Date Type Department Care Team Description 03/28/2017 Office Visit [facility] Typ e II or unspecified Diabet type diabetes mellitus [address] [facility] [place] [address] complication, uncontrolled ([facility]) (Primary Dx) Social History Tobacco Use Types Packs/Day [...] Sign Reading Time Taken Comments Blood Pressure - - Pulse - - Temperature - - Respiratory Rate - - Oxygen Saturation - - Inhaled Oxygen Concentration - - Weight 89 kg (196 lb 4.8 oz) 03/28/2017 3:20 PM CDT Height - - Body Mass Index 26.62 03/15/2017 1:05 PM CDT documented in this encounter Progress Notes Eleonora Lam, ASHIA, ASHLEY, [facility] - 03/28/2017 3:15 PM CDT DIAGNOSIS: Type 2 Diabetes VISIT TYPE: 2 Week DATE OF DIAGNOSIS: new SUBJECTIVE/OBJECTIVE/ASSESSMENT: FOLLOW UP VISIT: States, I have lost weight. My blood sugars are high in the morning and maybe it's because I eat popcorn before I go to bed. I don't know how much it is , maybe 6 cups. If I don't have a snack I can't sleep. But the rest of the sugars are good. I quit drinking pop and I'm eating a lot more healthy. Current Meal Plan: Carbohydrate counting (My Food Plan) Food Records: Reports that he has lost weight by eating smaller portions. He feels his appetite has gotten smaller. Did not bring written food records but per diet history, is eating breakfast daily instead of skipping breakfast. Usual diet is as follows: Breakfast dry cereal without milk or breakfast burrito on weekends. Water. Black coffee. AM Snack none Lunch: canned soup and fruit and almonds or meat, cheese and crackers and fruit and water. PM Snack none Dinner Protein, potatoes, sometimes a cooked vegetable, always a fruit. Dislikes raw vegetables. HS Snack bowl of popcorn, he thinks it could be 6 cups Exercise: None But has thought about starting activity. Has a treadmill. PLAN: Begin/continue the following meal plan:Carbohydrate counting (My Food Plan) Recommended Carbohydrate Choices (1 choice = 15 grams carbohydrate) 3-5 per Meal, 0-2 per Snack. Additional education: Dining out guidelines reviewed and resources discussed. Taught/reviewed alcohol safety guidelines: no more than 2 drinks/day for men, 1/day for women Exercise: encouraged as tolerated See RN note for medication adjustments and additional recommendations Encouraged him to add to his small breakfast so that he's having closer to 45 grams of carbohydrate instead of only 15 grams. Discussed healthy evening snack options, encouraged him to measure popcorn and limit to 6 cups. Diabetes Success Plan/Goal:Set Goal: Healthy Eating count carbohydrates at meals and snacks Follow-up: Return for education visit with written BG and food records in: 3 months Patient will contact IDC or PCP regarding blood glucose concerns. Education Visit Included: Nutrition Goals, Meal Consistency, Portions Carbohydrate Counting, Label Reading Exercise Dining Out Alcohol Time spent with patient: 30 minutes Written Diabetes Education Materials Given Maria Guadalupe Welch RN, CDE - 03/28/2017 3:15 PM CDT DIAGNOSIS: Type 2 Diabetes VISIT TYPE: 2 Week REFERRED BY: Sunny Giraldo MD SUBJECTIVE/OBJECTIVE: Bryce came with nice BG records. Doing well and BG numbers are in target majority of the time. Reviewed hypo/hyperglycemia causes and treatments. Reviewed illness, when to test, what to do food cisneros and when to call for medical assistance. He verbalized understanding of all information given. Reviewed control solution and where to find the control ranges on the test strip vial. Hypoglycemic Episodes (previous 2 weeks): 0 Testing: Reviewed glucose monitoring using a: Accu-chek Guide Patient is currently testing glucose. Pre-morning meal 125-169 mg/dL Pre-evening meal 92-113 mg/dL(one at 157) Post-evening meal 85-151 mg/dL Percentage of glucose in target: 67% Current Diabetes Medications: Oral: Metformin (Glucophage) 500 mg morning and evening Diabetes Measures: A1C: 9.3 % on 02/19/17 ASSESSMENT/PLAN: Grasps concepts well. Prefers to continue testing 3 times daily for a little longer. Will f/u in May Will call with questions or concerns Having A1C in April with his pcp Recommended Diabetes Medications: Oral: Metformin (Glucophage) Titrate to 1000mg bid as tolerated Glucose Goals: Type 2: Before meals: 70-130 mg/dL 1-2 hrs pp: No more than 50 mg/dL higher than before meal and < 180 mg/dL Bedtime: 90-150 mg/dL A1C < 7.0% Frequency: 2-3 days a week before morning meal, before main meal, 1-2 hours after starting main meal. EDUCATION VISIT INCLUDED: Review of Diabetes Glucose Monitoring Diabetes Medications Hypoglycemia Hyperglycemia Sick Days Time spent with patient: 40 minutes Written Diabetes Education Materials Given documented in this encounter Plan of Treatment Not on filedocumented as of this encounter Goals Goal Patient Goal Associated Recent Patient-Stated? Author Type Problems Progress Eating Diabetes On track No Genaro, healthy Education (05/30/2017 ASHIA Crews, 4:29 PM BATCH BLENDER) ASHLEY, CHEIKH Note: Formatting of this note might be d ifferent from the original. Count carbohydrates at meals and snacks. documented as of this encounter Visit Diagnoses Diagnosis Type II or unspecified type diabetes serafin litus without mention of complication, uncontrolled - Primary documented in this encounter Care Teams Loss Prevention Coordinator Relationship Specialty Start Date End Date Sunny Giraldo MD PCP - General Family Practice 02/21/17 08/08/20 [address] [place] [address] documented as of this encounter
--- OUTSIDE RECORDS SUMMARY | 2022-04-16 08:09 | XMS_ITS | Encounter Summary ---
:1960 Author Organization [facility] Address [address] [address] Care Team Providers Name Role Phone Sunny Giraldo MD Primary Care Provider Reason for Visit Reason Comments Refill Encounter Details Date Type Department Care Team Description 03/28/2017 Refill [facility]ty [facility] 3931 Newton Hernandez MD Refill Nephrology 3931 [facility] [address] [place] [address] [place], [place] [id number] [phone] Social History Tobacco Use Types Packs/Day Years [...] documented as of this encounter Nursing Notes Melissa Larson RN - 03/28/2017 8:16 AM CDT Medication refilled per refill protocol. documented in this encounter Plan of Treatment Not on filedocumented as of this encounter Goals Goal Patient Goal Associated Recent Patient-Stated? Author Type Problems Progress Eating Diabetes On track Kelin Lam healthy Education (05/30/2017 ASHIA Crews, 4:29 PM CARD LACER) ASHLEY, CHEIKH Note: Formatting of this note might be d ifferent from the original. Count carbohydrates at meals and snacks. documented as of this encounter Visit Diagnoses Diagnosis Chronic kidney disease, stage III (moder ate) ([facility]) Chronic kidney disease, Stage III (moder ate) documented in this encounter Care Teams Turbogenerator Operator Relationship Specialty Start Date End Date Sunny Giraldo MD PCP - General Family Practice 02/21/17 08/08/20 [address] [place] [address] documented as of this encounter
--- OUTSIDE RECORDS SUMMARY | 2022-04-16 08:09 | XMS_ITS | Encounter Summary ---
:1960 Author Organization [facility] Address [address] [place] [address] Care Team Providers Name Role Phone Sunny Giraldo MD Primary Care Provider Reason for Visit Reason Comments Follow-up Encounter Details Date Type Department Care Team Description 02/17/2018 Office Visit Specialty Center Terrence Hernandez MD Essential hypertension (Primary Dx); [address] [facility] Chronic kidney disease (CKD) , stage III (moderate) (HRC); [address] [facility] [address] Type 2 diabetes mellitus without complic ation, without long-term current use of insulin (HRC) [place] [phone] (Wo rk) Social History Tobacco Use Types [...] Sign Reading Time Taken Comments Blood Pressure 134/84 02/17/2018 9:45 AM CDT Pulse 63 02/17/2018 9:45 AM CDT Temperature - - Respiratory Rate - - Oxygen Saturation - - Inhaled Oxygen Concentration - - Weight 83.7 kg (184 lb 8 oz) 02/17/2018 9:45 AM CDT Height - - Body Mass Index 24.34 10/26/2017 10:02 AM CDT documented in this encounter Progress Notes Terrence Hernandez MD - 02/17/2018 10:00 AM CDT 02/17/2018 Reason for visit: Follow-up regarding chronic kidney disease stage 3, HTN, and related issues. Subjective: Bryce Mosley is a 57 y.o. y.o. male who returns to the clinic for scheduled follow-up. Patient was last seen here on February 14, 2017. Since our last visit, he has officially been diagnosed with diabetes. His blood glucoses were grossly high when I did labs for him last year. He was started on metformin, which he is tolerating withoutdifficulty. His last A1C in October was back to normal. He is careful about his diet now, although thesummer months have been harder. He feels he's slipped a little bit. He notes no other nausea or vomiting, no diarrhea with this. Review of Systems: Acomplete ROS was obtained and the pertinent positives are listed in the subjective. All other systems are negative. Past Medical History: Reviewed and updated in [email or web address]. Pertinent details annotated in the assessment. Patient [...] Refill ??? atorvastatin (LIPITOR) 20 MG tablet Take 1 Tab by mouth daily. 90 Tab 3 ??? blood glucose (ACCU-CHEK GUIDE) test strip Use 1 Strip to test three times a day. check blood sugar before breakfast, before & 1 hour after start of largest meal 100 Strip 11 ??? Blood Glucose Monitoring Suppl (ACCU-CHEK GUIDE) W/DEVICE KIT HOLD RX, only fill if alternate supplies not covered by insurance. If not covered, substitute appropriate meter. Use to check blood sugars. 1 Kit 0 ??? chlorthalidone (HYGROTON) 25 MG tablet Take 1 Tab by mouth daily. 90 Tab 3 ??? cholecalciferol (VITAMIN D3) 1000 UNITS tablet Take 1 Tab by mouth daily. (Patient not taking: Reported on 10/26/2017) 90 Tab 3 ??? lancets (ACCU-CHEK FASTCLIX) Use 1 Each to test three times a day. Use as directed to check blood sugars 102 Each 11 ??? losartan (COZAAR) 25 MG tablet Take 1 Tab by mouth daily. 90 Tab 3 ??? metFORMIN (GLUCOPHAGE) 1000 MG tablet Take 1 Tab by mouth two times a day with meals. 180 Tab 3 ??? omeprazole (PRILOSEC) 20 MG capsule Take 20 mg by mouth daily. Take 1 hour before a meal. No facility-administered medications prior to visit. Objective: Filed Vitals: 02/17/18 0945 BP: 134/84 Pulse: 63 Weight: 184 lb 8 oz (83.7 kg) Genl: awake alert comfortable. HEENT: anicteric. Heart: regular Lungs: clear Abd: +BS Ext: no edema. Neuro: non focal. Lab Visit on 01/28/2018 Component Date Value Ref Range Status ??? Glucose Non Fasting 01/28/2018 106 70 - 180 mg/dL Final ??? Sodium 01/28/2018 139 136 - 145 mmol/L Final ??? Potassium 01/28/2018 3.8 3.5 - 5.2 mmol/L Final ??? Chloride 01/28/2018 101 98 - 109 mmol/L Final ??? Blood Urea Nitrogen 01/28/2018 22 9 - 26 mg/dL Final ??? Albumin 01/28/2018 4.4 3.4 - 5.0 g/dL Final ??? Calcium 01/28/2018 10.4 8.4 - 10.4 mg/dL Final ??? Phosphorus Serum 01/28/2018 4.2 2.3 - 4.7 mg/dL Final ??? CO2 01/28/2018 28 22 - 31 mmol/L Final ??? Creatinine Serum 01/28/2018 1.30* 0.73 - 1.18 mg/dL Final ? ? Est GFR Am 01/28/2018 >60 >60 mL/min/1.73m2 Final ? ? Est GFR Non-Afr Am 01/28/2018 >60 >60 mL/min/1.73m2 Final Comment: Normal>60, moderate decrease 30 - 59, severe decrease 15 - 29, renal failure <15 mL/min/1.73 m2 NOTE: Choose the eGFR result above appropriate for the race of the patient. ??? Hemoglobin 01/28/2018 14.7 13.4 - 17.5 g/dL Final ??? PTH 01/28/2018 40 10 - 100 pg/mL Final ??? Vitamin D 25 Oh 01/28/2018 38 20 - 80 ng/mL Final Comment: Deficiency = <20 Adequate = 20-29 Preferred = 30-50 Uncertain safety = 51-80 High = >80 ? ? Microalbumin Urine 01/28/2018 <10.0 mg/L Final ??? U Creat Random 01/28/2018 50 mg/dL Final ? ? Microalbumin/Creatinine Ratio 01/28/2018 <10.0 0.0 - 30.0 Final Lab Visit on 01/28/2018 Component Date Value Ref Range Status ??? Creatinine Serum 01/28/2018 1.40* 0.73 - 1.18 mg/dL Final ??? Lab Glucose 01/28/2018 109* 70 - 100 mg/dL Final Comment: The stated glucose range is for the fasting state. Non-fasting glucose range is 70-180 mg/dL ??? CO2 01/28/2018 29 22 - 31 mmol/L Final ??? Chloride 01/28/2018 102 98 - 109 mmol/L Final ??? Potassium 01/28/2018 4.4 3.5 - 5.2 mmol/L Final ??? Sodium 01/28/2018 140 136 - 145 mmol/L Final ??? Blood Urea Nitrogen 01/28/2018 22 9 - 26 mg/dL Final ??? Calcium 01/28/2018 10.6* 8.4 - 10.4 mg/dL Final ? ? Est GFR Am 01/28/2018 >60 >60 mL/min/1.73m2 Final ? ? Est GFR Non-Afr Am 01/28/2018 56* >60 mL/min/1.73m2 Final Comment: Normal>60, moderate decrease 30 - 59, severe decrease 15 - 29, renal failure <15 mL/min/1.73 m2 NOTE: Choose the eGFR result above appropriate for the race of the patient. ??? Cholesterol 01/28/2018 156 0 - 199 mg/dL Final ??? Triglycerides 01/28/2018 101 4 - 149 mg/dL Final ? ? HDL Cholesterol 01/28/2018 43 >39 mg/dL Final ??? Cholesterol/HDL Ratio Screen 01/28/2018 3.6 Final ??? LDL Calculated 01/28/2018 93 19 - 130 mg/dL Final ??? Non HDL Chol, Calc 01/28/2018 113 0 - 159 mg/dL Final ??? Length Of Fast 01/28/2018 16.0 Final Assessment: 57 y.o. male with: 1. HTN: Well controlled on current regimen. No changes. 2. DM2: Very well controlled. I congratulated him on this. 3. CKD 3: Undiagnostic biopsy. Likely this HTN related.. I doubt it is due to the DM2 but possible. Plan: 1.No changes 2. RTC one year. documented in this encounter Plan of Treatment Not on filedocumented as of this encounter Goals Goal Patient Goal Associated Recent Patient-Stated? Author Type Problems Progress Eating Diabetes On track No Genaro, healthy Education (05/30/2017 ASHIA Crews, 4:29 PM DONOR SERVICES TECHNICIAN) LD, CARLEEES Note: Formatting of this note might be d ifferent from the original. Count carbohydrates at meals and snacks. documented as of this encounter Results Vitamin D (In house) - in 1 year (02/19/2019 12:20 PM CDT) P athologist Signature Vitamin D, 43 30 - 80 02/19/2019 [facility] 25-OH, Total ng/mL 5:27 PM CDT LABORATORY Specimen Anatomical Collection Method Collection Time Receive d Time (Source) Location / / Volume Laterality Blood 02/19/2019 12:20 02/19/2019 PM CDT 12:20 PM CDT Terrence Hernandez MD LAB_1 Performing Organization Address City/State/ZIP Code Phon e Number [facility] [address] [place] [address] PTH - Parathyroid Hormone Intact - in 1 year (02/19/2019 12:20 PM CDT) athologist Signature Intact PTH 55 10 - 100 02/19/2019 [facility] pg/mL 4:21 PM CDT LABORATORY Specimen Anatomical Collection Method Collection Time Receive d Time (Source) Location / / Volume Laterality Blood 02/19/2019 12:20 02/19/2019 PM CDT 12:20 PM CDT Terrence Hernandez MD LAB_1 Performing Organization Address [facility] Phon e Number [facility] [address] [place] [address] Microalbumin Urine Random - in 1 year (02/19/2019 12:20 PM CDT) athologist Signature Albumin, 7.9 mg/L 02/19/2019 [place] Urine, Random 3:50 PM CDT LABORATORY Creatinine, 65 >20 mg/dL 02/19/2019 [place] Urine, Random 3:50 PM CDT LABORATORY Albumin/Creati 12 <30 mg/g 02/19/2019 [place] nine Ratio, 3:50 PM CDT LABORATORY Urine, Random Specimen Anatomical Collection Method Collection Time Receive d Time (Source) Location / / Volume Laterality Urine,random 02/19/2019 12:20 02/19/2019 PM CDT 12:20 PM CDT Terrence Hernandez MD LAB_1 Performing Organization Address [facility]/ZIP Code Phon e Number [facility] [address] [place] [address] Hemoglobin - in 1 year (02/19/2019 12:20 PM CDT) athologist Signature Hemoglobin 15.0 13.5 - 17.5 02/19/2019 [facility] g/dL 12:25 PM CDT Specimen Anatomical Collection Method Collection Time Receive d Time (Source) Location / / Volume Laterality Blood 02/19/2019 12:20 02/19/2019 PM CDT 12:20 PM CDT Terrence Hernandez MD LAB_1 Performing Organization Address City/State/ZIP Code Phon e Number [facility] [address] [place] [address] [facility] [address] [place] [address], [facility] [phone] (ABNORMAL) Renal Function Panel - in 1 year (02/19/2019 12:20 PM CDT) [facility] Method Time Signature Sodium 141 136 - 145 02/19/2019 [place] mmol/L 3:12 PM CDT LABORATORY Potassium 4.0 3.5 - 5.1 02/19/2019 [place] mmol/L 3:12 PM CDT LABORATORY Chloride 102 98 - 109 02/19/2019 [place] mmol/L 3:12 PM CDT LABORATORY CO2 26 20 - 29 02/19/2019 [place] mmol/L 3:12 PM CDT LABORATORY Anion Gap 13 7 - 16 02/19/2019 [place] mmol/L 3:12 PM CDT LABORATORY Calcium 10.1 8.4 - 10.4 02/19/2019 [place] mg/dL 3:12 PM CDT LABORATORY BUN 21 7 - 26 02/19/2019 [place] mg/dL 3:12 PM CDT LABORATORY Creatinine 1.40 (H) 0.73 - 02/19/2019 [facility] [facility] 1.18 mg/dL 3:12 PM CDT LABORATORY GFR, Estimated 56 (L) >60 02/19/2019 [place] mL/min/1.7 3:12 PM CDT LABORATORY 3m2 GFR, Est If >60 >60 02/19/2019 [place] mL/min/1.7 3:12 PM CDT LABORATORY Maltese 3m2 Albumin 4.4 3.5 - 5.0 02/19/2019 [facility] g/dL 3:12 PM CDT LABORATORY Phosphorus 2.8 2.3 - 4.7 02/19/2019 [place] mg/dL 3:12 PM CDT LABORATORY Glucose 105 (H) 70 - 100 02/19/2019 [facility] mg/dL 3:12 PM CDT LABORATORY Comment: The given reference range is fo r the fasting state. Non-fasting reference range for glucose is 70 - 180 mg/dL. Hours Fasting 3 02/19/2019 3:12 PM CDT [facility] Specimen Anatomical Collection Method Collection Time Receive d Time (Source) Location / / Volume Laterality Blood 02/19/2019 12:20 02/19/2019 PM CDT 12:20 PM CDT Narrative [facility] - 02/19/2019 3:12 PM CDT The [...] Organization Address City/State/ZIP Code Phon e Number [facility] [address] [place] [address] [facility] [id number] [place] [address] [place] [address], [facility] documented in this encounter Visit Diagnoses Diagnosis Essential hypertension (HRC) - Primary Unspecified essential hypertension Chronic kidney disease (CKD), stage III (moderate) (HRC) Chronic kidney disease, Stage III (moder ate) Type 2 diabetes mellitus without complic ation, without long-term current use of insulin (HRC) documented in this encounter Care Teams Print Graphic Designer Relationship Specialty Start Date End Date Sunny Giraldo MD PCP - General Family Practice 02/21/17 08/08/20 [address] [place] [address] documented as of this encounter
--- OUTSIDE RECORDS SUMMARY | 2022-04-16 08:09 | XMS_ITS | Encounter Summary ---
:1960 [facility] Address [address] [address] Care Team Providers Name Role Phone Pita Giraldo MD Primary Care Provider Reason for Visit Reason Comments Refill chlorthalidone (HYGROTON) 25 MG tablet [Pharmacy Med Name: CHLORTHALIDONE 25 MG TABLET] Encounter Details Date Type Department Care Team Description 09/05/2017 Refill [facility] Pita Giraldo M D Refill (chlorthalidone Medicine [address] (HYGROTON) 25 MG tablet [address] [place] [address] [Pharmacy Med Name: [place], [place] [phone] (Wo rk) CHLORTHALIDONE 25 [place] [id number] TABLET]) [phone] Social History Tobacco Use Types Packs/Day Years [...] Notes Interface, Out Surescripts Prov Query - 09/05/2017 11:02 AM CST chlorthalidone (HYGROTON) 25 MG tablet [Pharmacy Med Name: CHLORTHALIDONE 25 MG TABLET] Medication started: 05/13/2013 Last ordered by PITA GIRALDO: 03/15/2017 (174 days ago) QTY: 90, Refills: 0, Sig: take 1 tab by mouth daily. (changed but equivalent) -> A duplicate request was processed on 09/05/2017. -> Cr is abnormal (1.3 mg/dL lies [...] K: 3.7 mEq/L on 04/24/2017 Powered by [employer], Reference: [id number], 09/05/2017 11:02:32 AM TELEPHONE INFORMATION SUPERVISOR, Jose: JO REFILL ([id number]) PHONE INFORMATION SUPERVISOR documented in this encounter Plan of Treatment Not on filedocumented as of this encounter Goals Goal Patient Goal Associated Recent Patient-Stated? Author Type Problems Progress Eating Diabetes On track No Genaro healthy Education (05/30/2017 ASHIA Crews, 4:29 PM TELEPHONE INFORMATION SUPERVISOR) ASHLEY, CHEIKH Note: Formatting of this note might be d ifferent from the original. Count carbohydrates at meals and snacks. documented as of this encounter Visit Diagnoses Diagnosis Chronic kidney disease, stage III (moder ate) ([facility]) Chronic kidney disease, Stage III (moder ate) documented in this encounter Care Teams Automotive Warranty Administrator Relationship Specialty Start Date End Date Pita Giraldo MD PCP - General Family Practice 02/21/17 08/08/20 [address] [place] [address] documented as of this encounter
--- OUTSIDE RECORDS SUMMARY | 2022-04-16 08:09 | XMS_ITS | Encounter Summary ---
:1960 Author Organization [facility] Address [address], [place] [address] Care Team Providers Name Role Phone Sunny Giraldo MD Primary Care Provider Encounter Details Date Type Department Care Team Description 04/24/2017 Immunization [facility] Need for prophylactic [address] [place] [address] inoculation against [phone] influenza Social History Tobacco Use Types Packs/Day Years [...] healthy Education (05/30/2017 ASHIA Crews, 4:29 PM GEOGRAPHIC ANALYST) ASHLEY, CHEIKH Note: Formatting of this note might be d ifferent from the original. Count carbohydrates at meals and snacks. documented as of this encounter Visit Diagnoses Diagnosis Need for prophylactic vaccination and in oculation against influenza documented in this encounter Care Teams Livestock Feeder Relationship Specialty Start Date End Date Sunny Giraldo MD PCP - General Family Practice 02/21/17 08/08/20 [address] [place] [address] documented as of this encounter
--- OUTSIDE RECORDS SUMMARY | 2022-04-16 08:09 | XMS_ITS | Encounter Summary ---
:1960 Author Organization [facility] Address [address] [place] [address] Care Team Providers Name Role Phone Sunny Giraldo MD Primary Care Provider Encounter Details Date Type Department Care Team Description 04/24/2017 Lab Visit [facility] Type 2 diabetes mellitus wit hout complication, without long-term current use of insulin (HRC); [address] Chronic kidney disease, stag e III (moderate); [place] [address] Liver enzyme elevation; [phone] Essential hyper tension Social History Tobacco Use Types Packs/Day Years [...] healthy Education (05/30/2017 ASHIA Crews, 4:29 PM MATERIAL FLOW ANALYST) ASHLEY, CDCES Note: Formatting of this note might be d ifferent from the original. Count carbohydrates at meals and snacks. documented as of this encounter Procedures Procedure Name Priority Date/Time Associated Diagnosis Comme nts ALBUMIN/CREAT RATIO Routine 04/24/2017 4:17 PM Type 2 diabetes Results for this CDT mellitus without procedure a re in complication, the results without long-term section. current use of insulin (HRC) LIVER PANEL(HEPATIC Routine 04/24/2017 4:08 PM Liver enzyme Re sults for this FUNCTION PANEL) CDT elevation procedure ar e in the results section. BASIC METABOLIC Routine 04/24/2017 4:08 PM Chronic kidney Resu lts for this PANEL CDT disease, stage III procedure are in (moderate) the results section. HGB A1C Routine 04/24/2017 4:08 PM Type 2 diabetes Result s for this CDT mellitus without procedure a re in complication, the results without long-term section. current use of insulin (HRC) documented in this encounter Results (ABNORMAL) Microalbumin Urine Random (UMAR) (04/24/2017 4:17 PM CDT) [facility] Cohesion Method Time Signature Microalbumin 31.1 mg/L [facility] Urine U Creat Random 65 mg/dL [facility] Microalbumin/Crea 47.8 (H) 0.0 - [facility] tinine Ratio 30.0 Specimen Anatomical Collection Method Collection Time Receive d Time (Source) Location / / Volume Laterality Urine specimen 04/24/2017 4:17 PM 017 8:39 (specimen) CDT PM CDT Narrative [facility] - 04/24/2017 9:03 PM CDT Performed at [facility], [address] [place] [address] CLIA number [id number] Sunny Giraldo MD LAB_1 Performing Organization Address City/State/ZIP Code Phon e Number [facility] [address] [place] [address] (ABNORMAL) Liver Panel(Hepatic Function Panel) (04/24/2017 4:08 PM CDT) FRESS Method Time Signature Alk Phos 52 40 - 150 [facility] U/L Bilirubin Total 1.6 (H) 0.2 - 1.2 [facility] mg/dL Bilirubin, Direct 0.4 0.0 - 0.5 [facility] mg/dL Protein Total, Serum 7.9 6.4 - 8.3 [facility] g/dL Albumin 4.3 3.4 - 5.0 [facility] g/dL Aspartate 30 10 - 40 [facility] Aminotransferase U/L Alanine 42 9 - 55 [facility] Aminotransferase U/L Specimen Anatomical Collection Method Collection Time Receive d Time (Source) Location / / Volume Laterality 04/24/2017 4:08 PM 7 8:37 CDT PM CDT Narrative [facility] - 04/24/2017 8:57 PM CDT Performed at [facility], [address] [place] [address] CLIA number [id number] Sunny Giraldo MD LAB_1 Performing Organization Address City/State/ZIP Code Phon e Number [facility] [address] [place] [address] [phone] (ABNORMAL) Basic Metabolic Panel (04/24/2017 4:08 PM CDT) Analysis Performed At Patho logist Time Signature Creatinine 1.30 (H) 0.73 - [facility] Serum 1.18 mg/dL Lab Glucose 91 70 - 100 [facility] mg/dL Comment: The stated glucose range is for the fast ing state. Non-fasting glucose range is 70-180 mg/d L CO2 24 22 - 31 mmol/L [facility] Chloride 102 98 - 109 mmol/L [facility] Potassium 3.7 3.5 - 5.2 mmol/L [facility] Sodium 139 136 - 145 mmol/L [facility] Blood Urea Nitrogen 21 9 - 26 mg/dL [facility] Calcium 10.0 8.4 - 10.2 mg/dL [facility] Est GFR Am >60 >60 mL/min/1.73m2 [facility] Est GFR Non-Afr Am >60 >60 mL/min/1.73m2 [facility] Comment: Normal>60, moderate decrease 30 - 59, se alexia decrease 15 - 29, renal failure <15 mL/min/1.73 m2 NOTE: ??Choose the eGFR result above jamie ropriate for the race of the patient. Specimen Anatomical Collection Method Collection Time Receive d Time (Source) Location / / Volume Laterality 04/24/2017 4:08 PM 7 8:37 CDT PM CDT Narrative [facility] - 04/24/2017 8:57 PM CDT Performed at [facility], [address] [place] [address] CLIA number [id number] Sunny Giraldo MD LAB_1 Performing Organization Address [facility] Phon e Number [facility] [address] [place] [address] (ABNORMAL) Hgb A1c (04/24/2017 4:08 PM CDT) P athologist Signature HGB A1C 6.2 (H) 4.0 - 5.6 % [facility] Specimen Anatomical Collection Method Collection Time Receive d Time (Source) Location / / Volume Laterality 04/24/2017 4:08 PM 7 9:26 CDT PM CDT Narrative [facility] - 04/25/2017 10:37 AM CDT Performed at [facility], [address] [place] [address] CLIA number [id number] Sunny Giraldo MD LAB_1 Performing Organization Address [facility] Phon e Number PN [facility] [address] [place] [address] documented in this encounter Visit Diagnoses Diagnosis Type 2 diabetes mellitus without complic ation, without long-term current use of insulin (HRC) Chronic kidney disease, stage III (moder ate) (HRC) Chronic kidney disease, Stage III (moder ate) Liver enzyme elevation Nonspecific elevation of levels of trans aminase or lactic acid dehydrogenase (LDH) Essential hypertension (HRC) Unspecified essential hypertension documented in this encounter Care Teams Car Shifter Relationship Specialty Start Date End Date Sunny Giraldo MD PCP - General Family Practice 02/21/17 08/08/20 [address] [place] [address] documented as of this encounter
--- OUTSIDE RECORDS SUMMARY | 2022-04-16 08:09 | XMS_ITS | Encounter Summary ---
:1960 Author Organization [employer] Address [address] [facility] [place] [address] Care Team Providers Name Role Phone DemarJun MD Primary Care Provider Encounter Details Date Type Department Care Team Description 02/19/2017 Lab Visit [facility] High glucose; [address] [address]. Abnormal results [place] [address] Social History Tobacco Use Types Packs/Day Years Used Date Smoking Tobacco: Never Alcohol Use Standard Drinks/Week Comments [...] Procedure Name Priority Date/Time Associated Comments Diagnosis URINE CULTURE Routine 02/19/2017 3:00 PM Results for this CDT procedure are i n the results section. LIVER PANEL(HEPATIC Routine 02/19/2017 3:00 PM Abnormal result s of Results for this FUNCTION PANEL) CDT liver function procedure are in studies the results section. HGB A1C Routine 02/19/2017 3:00 PM High glucose Results f or this CDT procedure are i n the results section. URINE MICROSCOPIC Routine 02/19/2017 11:51 Result s for this AM CDT procedure are i n the results section. UR NPT HOLD FOR Routine 02/19/2017 11:51 High glucose Results for this CULTURE AM CDT procedure are i n the results section. GLUCOSE - FASTING > 8 Routine 02/19/2017 11:51 High glucose Re sults for this HRS FASTING AM CDT procedure are i n the results section. documented in this encounter Results Urine Culture (02/19/2017 3:00 PM CDT) [facility] Signature Source Urine PN SOFT Site PN SOFT Urine Culture No Growth 02/20/2017 PN SOFT After 1 Day 4:46 PM CDT Specimen (Source) Anatomical Collection Method Collection Time Re ceived Time Location / / Volume Laterality Urine: 02/19/2017 3:00 PM CDT Narrative PN SOFT - 02/20/2017 4:46 PM CDT Performed at [address] [address], CLIA Number [id number] Sunny Giraldo MD LAB_1 Performing Organization Address City/State/ZIP Code Phon e Number PN SOFT [address] [place] [address] (ABNORMAL) Liver Panel(Hepatic Function Panel) (02/19/2017 3:00 PM CDT) Scan•Jour Method Time Signature Alk Phos 71 40 - 150 PN SOFT U/L Bilirubin Total 1.6 (H) 0.2 - 1.2 PN SOFT mg/dL Bilirubin, Direct 0.5 0.0 - 0.5 PN SOFT mg/dL Protein Total, Serum 7.5 6.4 - 8.3 PN SOFT g/dL Albumin 3.9 3.4 - 5.0 PN SOFT g/dL Aspartate 31 10 - 40 PN SOFT Aminotransferase U/L Alanine 64 (H) 9 - 55 PN SOFT Aminotransferase U/L Specimen (Source) Anatomical Collection Method Collection Time Re ceived Time Location / / Volume Laterality Urine: 02/19/2017 3:00 PM CDT Narrative PN SOFT - 02/19/2017 2:44 PM CDT Performed at [facility], [address] [place] [address] CLIA number [id number] Sunny Giraldo MD LAB_1 Performing Organization Address [facility] Phon e Number PN SOFT [address] [place] [address] (ABNORMAL) Hemoglobin A1C Glycosylated (02/19/2017 3:00 PM CDT) athologist Signature HGB A1C 9.3 (H) 4.0 - 5.6 % PN SOFT Specimen Anatomical Collection Method Collection Time Receive d Time (Source) Location / / Volume Laterality Urine: 02/19/2017 3:00 PM 7 6:28 CDT PM CDT Narrative PN SOFT - 02/19/2017 5:05 PM CDT Performed at [address] [address] CLIA number [id number] Sunny Giraldo MD LAB_1 Performing Organization Address [facility] Phon e Number PN SOFT [address] [place] [address] (ABNORMAL) Urine Microscopic (02/19/2017 11:51 AM CDT) [facility] [email or web address] Method Time Signature Urine WBC 5-9 (A) 0 - 4 PN SOFT /HPF Urine RBC 0-2 0 - 2 PN SOFT /HPF Bacteria Urine Moderate (A) /HPF PN SOFT Urine Mucus Few /HPF PN SOFT Specimen (Source) Anatomical Collection Method Collection Time Re ceived Time Location / / Volume Laterality Urine: 02/19/2017 11:51 AM CDT Narrative PN SOFT - 02/19/2017 3:04 PM CDT Performed at [facility], [address] [place] [address] CLIA number [id number] Sunny Giraldo MD LAB_1 Performing Organization Address [facility] Phon e Number PN SOFT [address] [place] [address] (ABNORMAL) UR NPT Hold for Culture (02/19/2017 11:51 AM CDT) [facility] [email or web address] [email or web address] Method Time Signature Urine Type URINE:clean PN SOFT cat U BILI Negative Negative PN SOFT Blood Urine Small (A) Neg - Trace PN SOFT Glucose, 500 (A) Neg-30 PN SOFT Qualitative U mg/dL Ketones Negative Negative PN SOFT Leukocyte Negative Negative PN SOFT Esterase Urine Nitrite Urine Negative Negative PN SOFT pH Urine 5.5 5.0 - 8.0 PN SOFT Protein Urine 30 (A) Neg - Trace PN SOFT mg/dL U Specific 1.025 1.005 - PN SOFT [place] 1.030 Urobilinogen 1.0 Negative PN SOFT Urine Eu/dL Turbidity Clear Clear PN SOFT Color Yellow PN SOFT Specimen Anatomical Collection Method Collection Time Receive d Time (Source) Location / / Volume Laterality 02/19/2017 11:51 02/19/2017 AM CDT 11:51 AM CDT Narrative PN SOFT - 02/19/2017 12:30 PM CDT Performed at [facility], [address] [place] [address] CLIA number [id number] Sunny Giraldo MD LAB_1 Performing Organization Address [facility] Phon e Number PN SOFT [address] [place] [address] (ABNORMAL) Glucose (02/19/2017 11:51 AM CDT) P athologist Signature Lab Glucose 304 (H) 70 - 100 PN SOFT mg/dL Comment: The stated glucose range is for the fast ing state. Non-fasting glucose range is 70-180 mg/d L Specimen Anatomical Collection Method Collection Time Receive d Time (Source) Location / / Volume Laterality 02/19/2017 11:51 02/19/2017 2:28 AM CDT PM CDT Narrative PN SOFT - 02/19/2017 2:49 PM CDT Performed at [facility], [address] [place] [address] CLIA number [id number] Sunny Giraldo MD LAB_1 Performing Organization Address City/[facility] Phon e Number PN SOFT [address] [place] [address] documented in this encounter Visit Diagnoses Diagnosis High glucose Abnormal results of liver function studi es Nonspecific abnormal results of liver fu nction study documented in this encounter Care Teams Ladies Underwear Operator Relationship Specialty Start Date End Date Jun Benz MD PCP - General 10/12/15 02/20/17 [address] [place] [address] documented as of this encounter
--- OUTSIDE RECORDS SUMMARY | 2022-04-16 08:09 | XMS_ITS | Encounter Summary ---
:1960 Author Organization [employer] Address [address], [place] [address] Care Team Providers Name Role Phone Sunny Giraldo MD Primary Care Provider Reason for Visit Reason Comments Type 2 Diabetes Controlled Patient Education Encounter Details Date Type Department Care Team Description 05/30/2017 Office Visit [facility], [facility] type 2 Diabet diabetes mellitus [address] [facility] without complication, [place] [address] without long-term [phone] current use of insulin (HRC) (Primary Dx) Social History Tobacco Use Types [...] Sign Reading Time Taken Comments Blood Pressure 121/84 05/30/2017 4:33 PM BRAND MARKETING COORDINATOR Pulse 59 05/30/2017 4:33 PM BRAND MARKETING COORDINATOR Temperature - - Respiratory Rate - - Oxygen Saturation - - Inhaled Oxygen Concentration - - Weight 82.4 kg (181 lb 11.2 oz) 05/30/2017 4:33 PM BRAND MARKETING COORDINATOR Height - - Body Mass Index 24.64 03/15/2017 1:05 PM CDT documented in this encounter Progress Notes Eleonora Lam, ASHIA, ASHLEY, CDCES - 05/30/2017 3:15 PM CST DIAGNOSIS: Type 2 Diabetes VISIT TYPE: 3 Month DATE OF DIAGNOSIS: 2016 SUBJECTIVE/OBJECTIVE/ASSESSMENT: FOLLOW UP VISIT: States, I have lost about 40# since the summer. 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 I have been really, really busy but things will slow down now. Current Meal Plan: Plate Method/Healthy Eating/Portion control. Also choosing small portions of carbohydrates with meals. Food Records: Did not bring written food records but per diet history, is eating 3 consistent meals daily plus anHS snack. Has fruit at every meal plus often for an HS snack. Chooses 1-2 servings of vegetables daily. Weight change decrease 15# since last visit Exercise: Types: Active Job Diabetes Measures: A1C: in target Blood Pressure: In target Statin: No ASA:No Tobacco: Never Current diabetes medications: Metformin 2000 mg daily Current glucoses: Fasting 105-140 Premeal: 82-108 Post meal: 94-132 % in target range: 90% PLAN: Begin/continue the following meal plan:Plate Method/Healthy Eating/Portion Control/Sample Menus. Discussed his weight loss goals and he plans to aim for maintenance rather than more weight loss. Encouraged him to add additional carbohydrate to his evening meal, as this meal is often fruit, protein and vegetable. Additional education: Exercise: continue as tolerated. 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 Recommended diabetes medications: no change Diabetes measures: his PCP has left primary care and he was encouraged to establish a new PCP provider. Encouraged him to discuss statin and ASA with new PCP. Discussed rationale for both. Diabetes Success Plan/Goal:Self-Assessment of Goal is not always counting carbohydrates but portionsare not excessive. Follow-up: With primary care provider: he will schedule an appointment. He also plans to discuss hislow pulse with his PCP. Patient will contact IDC or PCP regarding blood glucose concerns. Ongoing support options patient expressed interest in or is currently participating in: Diabetes cookbooks/recipes provided at today's visit. Education Visit Included: Overview/Review of Diabetes Nutrition Goals, Meal Consistency, Portions Exercise Lipids/Healthy Fat Hypertension/Sodium Follow-up options Time spent with patient: 55 minutes Written Diabetes Education Materials Given D MARKETING COORDINATOR documented in this encounter Plan of Treatment Not on filedocumented as of this encounter Goals Goal Patient Goal Associated Recent Patient-Stated? Author Type Problems Progress Eating Diabetes On track No rachel Lam Education (05/30/2017 ASHIA Crews, 4:29 PM BRAND MARKETING COORDINATOR) CHEIKH RAMIREZ Note: Formatting of this note might be d ifferent from the original. Count carbohydrates at meals and snacks. documented as of this encounter Visit Diagnoses Diagnosis Controlled type 2 diabetes mellitus with out complication, without long-term current use of insulin (HRC) - Primary documented in this encounter Care Teams Ux Developer Relationship Specialty Start Date End Date Sunny Giraldo MD PCP - General Family Practice 02/21/17 08/08/20 [address] [place] [address] documented as of this encounter
--- OUTSIDE RECORDS SUMMARY | 2022-04-16 08:09 | XMS_ITS | Encounter Summary ---
:1960 Author Organization [employer] Address [address] [place] [address] Care Team Providers Name Role Phone Sunny Giraldo MD Primary Care Provider Reason for Visit Reason Comments Type 2 Diabetes Uncontrolled Encounter Details Date Type Department Care Team Description 03/28/2017 Notes/Orders Hunters Maria Guadalupe Welch, Type II or International Diabet RN, CDE unspecified type [address] [place] [address] without mention of [phone] [place], [address] uncontrolled (HRC) [phone] (Primary Dx) (Work) Social History Tobacco Use Types Packs/Day Years [...] documented as of this encounter Progress Notes Maria Guadalupe Welch RN, CDE - 03/28/2017 4:[address] Giraldo, We met with Bryce for his second diabetes education visit. His fasting BG numbers are still above the target range the majority of the time. Per IDC protocol recommend increasing the metformin to 1000 mg twice a day. I have pended a rx, if you agree, please fax to his pharmacy and let him know. Thank you Maria Guadalupe Welch RN CDE IDC Educator Sunny Giraldo MD - 03/28/2017 4:51 PM CDT Done. Jenifer Lomax CMA - 03/28/2017 4:51 PM CDT Spoke with pt informed him that the new rx is at the pharmacy. Pt understands and agrees with plan. documented in this encounter Plan of Treatment Not on filedocumented as of this encounter Goals Goal Patient Goal Associated Recent Patient-Stated? Author Type Problems Progress Eating Diabetes On track No Genaro, healthy Education (05/30/2017 ASHIA Crews, 4:29 PM PUMP STATION OPERATOR) ASHLEY, CHEIKH Note: Formatting of this note might be d ifferent from the original. Count carbohydrates at meals and snacks. documented as of this encounter Visit Diagnoses Diagnosis Type II or unspecified type diabetes serafin litus without mention of complication, uncontrolled - Primary documented in this encounter Care Teams Logger Relationship Specialty Start Date End Date Sunny Giraldo MD PCP - General Family Practice 02/21/17 08/08/20 [address] [place] [address] documented as of this encounter
--- OUTSIDE RECORDS SUMMARY | 2022-04-16 08:09 | XMS_ITS | Encounter Summary ---
:1960 Author Organization [employer] Address [address] [place] [address] Care Team Providers Name Role Phone Sunny Giraldo MD Primary Care Provider Reason for Visit Reason Comments Lab Orders Needed Encounter Details Date Type Department Care Team Description 12/23/2017 Telephone [facility] [address] Newton Hernandez MD Lab Orders Needed Nephrology [address] [facility] [address] [facility] [address] [place] [phone] (Wo rk) Social History Tobacco Use Types [...] documented as of this encounter Nursing Notes Britt Vera RN - 12/24/2017 8:52 AM CDT PT advised labs have been ordered. Cele Philip RN - 12/23/2017 4:10 PM CDT Pt's calling to report pt. has appt. scheduled for 02/17/18, no labs in EPIC, please enter orders. Nurses, pt's would like a call back once labs are ordered. documented in this encounter Plan of Treatment Not on filedocumented as of this encounter Goals Goal Patient Goal Associated Recent Patient-Stated? Author Type Problems Progress Eating Diabetes On track No Genaro, healthy Education (05/30/2017 ASHIA Crwes, 4:29 PM FREELANCE PROGRAMMER/APP DEVELOPER) ASHLEY, CHEIKH Note: Formatting of this note might be d ifferent from the original. Count carbohydrates at meals and snacks. documented as of this encounter Results Microalbumin Urine Random - [...] - 01/28/2018 2:36 PM CDT Performed at [facility], [address] [place] [address] CLIA number [id number] Terrence Hernandez MD LAB_1 Performing Organization Address City/State/ZIP Code Phon e Number PN SOFT [address] [place], [place] [address] [phone] Vitamin D (In house) - in 1 [...] - 01/28/2018 3:59 PM CDT Performed at [facility], [address] [place] [address] CLIA number [id number] Terrence Hernandez MD LAB_1 Performing Organization Address [facility] Phon e Number PN SOFT [address] [place] [address] PTH - Parathyroid Hormone Intact - in 1 month (01/28/2018 11:42 AM CDT) athologist Signature PTH 40 10 - 100 PN SOFT pg/mL Specimen Anatomical Collection Method Collection Time Receive d Time (Source) Location / / Volume Laterality 01/28/2018 11:42 01/28/2018 4:10 AM CDT PM CDT Narrative PN SOFT - 01/28/2018 4:54 PM CDT Performed at [facility] [place] [facility], [address] [place] [address] CLIA number [id number] Terrence Hernandez MD LAB_1 Performing Organization Address [facility] Phon e Number PN SOFT [address] [place] [address] Hemoglobin - in 1 month (01/28/2018 11:42 AM CDT) athologist Signature Hemoglobin 14.7 13.4 - 17.5 PN SOFT g/dL Specimen Anatomical Collection Method Collection Time Receive d Time (Source) Location / / Volume Laterality 01/28/2018 11:42 01/28/2018 AM CDT 11:42 AM CDT Narrative PN SOFT - 01/28/2018 11:47 AM CDT Performed at [facility], [address] [place] [address] CLIA number [id number] Terrence Hernandez MD LAB_1 Performing Organization Address City/[facility] Code Phon e Number PN SOFT [address] [place] [address] (ABNORMAL) Renal Function Panel - in 1 month (01/28/2018 11:42 AM CDT) [facility] Time Signature Glucose Non 106 70 - [...] - 01/28/2018 2:41 PM CDT Performed at [facility], [facility] [place][note 2] [address] [place] [address] CLIA number [id number] Terrence Hernandez MD LAB_1 Performing Organization Address City/State/ZIP Code Phon e Number PN SOFT [address] [place] [address] [phone] documented in this encounter Visit Diagnoses Diagnosis Chronic kidney disease (CKD), stage III (moderate) (HRC) - Primary Chronic kidney disease, Stage III (moder ate) Chronic kidney disease (CKD), stage III (moderate) (HRC) Chronic kidney disease, Stage III (moder ate) documented in this encounter Care Teams Trawl Net Maker Relationship Specialty Start Date End Date Sunny Giraldo MD PCP - General Family Practice 02/21/17 08/08/20 [address] [place] [address] documented as of this encounter
--- OUTSIDE RECORDS SUMMARY | 2022-04-16 08:09 | XMS_ITS | Encounter Summary ---
:1960 [facility] [place] Address [address], [place] [address] Care Team Providers Name Role Phone Sunny Giraldo MD Primary Care Provider Reason for Referral Consult/Transfer Care (Routine) - Closed Specialty Diagnoses / Procedures Referred By Contact Refer red To Contact Diagnoses Type 2 diabetes mellitus without complication, without long-term current use of insulin (HRC) [place] [id number] [place] [address] Referral ID Status Reason Start Date Expiration Date Visits Requ ested Visits Authorized [id number] Closed 02/22/2017 05/24/2018 1 1 Scheduling Instructions Your provider has recommended an appoint ment with [facility]. You may call [phone] to schedule [facility] appointment. If you do not schedule an appointment within the next 1 to 3 busin days, we will call you to help arrange your appointment. We suggest you call [facility] [employer] insurance company about your coverage and benefits for this appointme nt. Reason for Visit Reason Comments Follow-up diabetic labs Encounter Details Date Type Department Care Team Description 02/22/2017 Office Visit [facility] Sunny Giraldo M D Chronic kidney disease (CKD), stage III (moderate) (HRC) (Primary Dx); Medicine [id number] Type 2 diabetes mellitus without complic ation, without long-term current use of insulin (HRC) [id number] [place] [id number] Social History Tobacco Use Types Packs/Day [...] Sign Reading Time Taken Comments Blood Pressure 138/86 02/22/2017 11:09 AM CDT Pulse 70 02/22/2017 11:09 AM CDT Temperature - - Respiratory Rate - - Oxygen Saturation - - Inhaled Oxygen Concentration - - Weight 94.8 kg (209 lb) 02/22/2017 11:09 AM CDT Height 186.1 cm (6' 1.25) 02/22/2017 11:09 AM CDT Body Mass Index 27.39 02/22/2017 11:09 AM CDT documented in this encounter Progress Notes Sunny Giraldo MD - 02/22/2017 12:56 PM CDT NAME: JOSH MOSLEY MR#: [id number] CSN: [id number] AUTHENTICATING CLINICIAN: Sunny Giraldo MD CONFIRM #: [id number] LOC: 4402 CLINIC PROGRESS NOTE DATE OF VISIT: 02/22/2017 : 1960 SUBJECTIVE: This is a 56-year-old male. He is coming today to clinic for followup after he was seen with elevated blood sugar and his hemoglobin A1c result came also pretty high. It was 9.3 and it is official that he is diabetic. He was called to follow up. According to the patient, he stopped drink sodas. He stopped drink and eat any more juice or sugary liquid and he start to watch also his diet. 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 The patient admits that he was feeling thirsty anddry mouth and a little bit tired too. PAST MEDICAL HISTORY: He did have some essential hypertension, hyperlipidemia, some elevated liver enzyme and he did have also some kidney function abnormality. Kidney end stage III, but his last kidney function test was pretty within normal limit. He sees a director of veterans affairs and the director of veterans affairs because his blood sugar was high he was advised to be seen before he changed any other medication. The goal was to stop or to changehis Tenormin. All of the labs for this time. His bilirubin 1.6. Otherwise the liver enzyme, ALT was 64 which is normal 54 and bilirubin was on the high side 1.6, normal 1.4. His urine no growth. The culture was done. At that time, there was some little bit white blood cell count, but his final negative. At that time when I saw him, his blood sugar was first time was high .His TSH was normal. His magnesium was within normal. his aldosterone was also within normal limits that had been ordered by director of veterans affairs that was done 02/14/2017. His parathyroid hormone was normal too. Renal function test 02/14: His glucose was high but the rest of sodium was little bit low. Normal was 136. His was 135. The rest of his renal kidney function was within normal limits. Microalbuminuria. He did have 131 protein in the urine which is 0 to 30 average. OBJECTIVE: VITAL SIGNS: At this time, his blood pressure 138/86, his pulse 70. His weight is 209. GENERAL: Alert, oriented. He does not seem to be distressed today. No additional exam was done with comparison to last time no change with except he feels less thirsty. I did also today random blood sugar. It was 297, but this was not fasting. ASSESSMENT: 1. New onset of diabetes mellitus. 2. History of hypertension. 3. History of hyperlipidemia. 4. History of kidney but normal kidney function without any other problem. The medication that he nathan it is Tenormin which he is not taking. He is on hydrochlorothiazide 25 mg and he is also on Cozaar 25 mg. PLAN: I urged the patient to have eye examination. I referred the patient to diabetic education and counseling. I started him on Glucophage and I will watch close his kidney as well as liver enzyme and his kidney function, pretty within normal limits at this time. Liver enzyme one of them slightly elevated.Will watch again in 2 weeks. I started him on 500 mg Glucophage 1 pill in the evening with food. Will increase it to twice if tolerated and liver enzyme normal. We are going to check it again in 2 weeks. At the same time, I urged the patient because he will follow up with the Nephrology probably will need to increase his Cozaar slowly as tolerated to the maximum dose because he has a lot of protein in the urine. Also discussed with the patient long-term diabetic treatment that he is treatment, not curable. Also the importance is to get his blood pressure, his cholesterol, his eye and his feet exam on a regular basis yearly. He was with his . Both of them agree and understand that. They will goto the educational cosmetology educator and I will see the patient again in 2 weeks if no problem. If any concerns, questions, he will be back to the clinic any time. YO:MEDQ C: CONFIRM #: [id number] documented in this encounter Plan of Treatment Scheduled Referrals Name Type Priority Associated Diagnoses Order [facility] Education Referral Routine Type 2 diabetes [facility] Ordered: 02/22/2017 Visit without complication, without long-term current use of insulin (HRC) documented as of this encounter Results (ABNORMAL) Lipid Panel - LDLD If Trig High (02/23/2017 9:28 AM CDT) [facility] Method Time Signature Cholesterol 197 0 - [...] / / Volume Laterality 02/23/2017 9:28 AM 08/05/201 7 3:16 CDT PM CDT Narrative PN SOFT - 02/23/2017 3:43 PM CDT Performed at [facility], [address] [facility], [place] [address] CLIA number [id number] Sunny Giraldo MD LAB_1 Performing Organization Address [facility] Phon e Number PN SOFT [address] [place] [address] [phone] [facility] - Bedside Glucose Monitor (02/22/2017 11:57 AM CDT) P athologist Signature Bedside Blood 297 mg/dL PN SOFT Glucose Test Specimen Anatomical Collection Method Collection Time Receive d Time (Source) Location / / Volume Laterality 02/22/2017 11:57 02/22/2017 AM CDT 11:57 AM CDT Narrative PN SOFT - 02/22/2017 12:05 PM CDT Performed at [facility], [address] [place] [address] CLIA number [id number] Sunny Giraldo MD LAB_1 Performing Organization Address [facility] Phon e Number PN SOFT [address] [place] [address] documented in this encounter Visit Diagnoses Diagnosis [...] (HRC) documented in this encounter Care Teams Registered Nurse Obstetrics Relationship Specialty Start Date End Date Sunny Giraldo MD PCP - General Family Practice 02/21/17 08/08/20 [address] [place] [address] documented as of this encounter
--- OUTSIDE RECORDS SUMMARY | 2022-04-16 08:09 | XMS_ITS | Encounter Summary ---
:1960 Author Organization [facility] Address [address] [place] [address] Care Team Providers Name Role Phone Sunny Giraldo MD Primary Care Provider Encounter Details Date Type Department Care Team Description 02/22/2017 Lab Visit [facility] Type 2 diabetes mellitus [id number] without complication, [place] [address] without long-term current [phone] use of insulin (HRC) Social History Tobacco [...] Name Priority Date/Time Associated Diagnosis Comme nts GLUCOSE, WHOLE Routine 02/22/2017 11:57 AM Type 2 diabetes Res ults for this BLOOD POCT CDT mellitus without procedure a re in complication, the results without long-term section. current use of insulin (HRC) documented in this encounter Results [facility] - Bedside Glucose Monitor (02/22/2017 11:57 AM CDT) P athologist Signature Bedside Blood 297 mg/dL PN SOFT Glucose Test Specimen Anatomical Collection Method Collection Time Receive d Time (Source) Location / / Volume Laterality 02/22/2017 11:57 02/22/2017 AM CDT 11:57 AM CDT Narrative PN SOFT - 02/22/2017 12:05 PM CDT Performed at [facility], [address] [place] [address] CLIA number [id number] Sunny Giraldo MD LAB_1 Performing Organization Address City/State/ZIP Code Phon e Number PN SOFT [address] [place] [address] documented in this encounter Visit Diagnoses Diagnosis Type 2 diabetes mellitus without complic ation, without long-term current use of insulin (HRC) documented in this encounter Care Teams [employer] Executive Relationship Specialty Start Date End Date Sunny Giraldo MD PCP - General Family Practice 02/21/17 08/08/20 [address] [place] [address] documented as of this encounter
--- OUTSIDE RECORDS SUMMARY | 2022-04-16 08:09 | XMS_ITS | Encounter Summary ---
:1960 Author Organization [facility] Address [address] [address] Care Team Providers Name Role Phone Sunny Giraldo MD Primary Care Provider Reason for Visit Reason Comments Diabetes Encounter Details Date Type Department Care Team Description 10/26/2017 Office Visit [facility] Sunny Giraldo M D Essential hypertension (Primary Dx); Medicine [id number] Hyperlipidemia, unspecified hyperlipidem ia type; [address] [place], [place] Chronic kidney disease (CKD) , stage III (moderate) (HRC); [place] [address] Type 2 diabetes mellitus without complic ation, without long-term current use of insulin (HRC); [id number] Chronic kidney disease, stag e III (moderate) (HRC); Need for viral immunization Social History Tobacco Use Types Packs/Day Years [...] Sign Reading Time Taken Comments Blood Pressure 126/82 10/26/2017 10:02 AM CDT Pulse - - Temperature - - Respiratory Rate - - Oxygen Saturation - - Inhaled Oxygen Concentration - - Weight 81.6 kg (180 lb) 10/26/2017 10:02 AM CDT Height 185.4 cm (6' 1) 10/26/2017 10:02 AM CDT Body Mass Index 23.75 10/26/2017 10:02 AM CDT documented in this encounter Progress Notes Sunny Giraldo MD - 10/26/2017 10:39 AM CDT NAME: JOSH MOSLEY MR#: [id number] CSN: [id number] AUTHENTICATING CLINICIAN: Sunny Giraldo MD CONFIRM #: [id number] LOC: 4402 CLINIC PROGRESS NOTE DATE OF VISIT: 10/26/2017 : 1960 SUBJECTIVE: 57-year-old male is coming today to clinic for his diabetes, high blood pressure, followup. Patient monitoring his blood sugar, and blood sugar is improving. His evening reading after work, the blood sugar is between 88 and 86; morning sometimes 120, occasionally maybe higher, but average less than 119. According to patient, he is pretty active. He has no side effects, and he is doing his diet. His last eye exam was March 2017. He measured his blood sugar 3-4 times a week. REVIEW OF SYSTEMS: Above. Otherwise, his HEENT, neck, lung, cardiovascular, GI, skeletal, muscle, urinary tract, skin, lymph node, neurological negative. OBJECTIVE: VITAL SIGNS: Blood pressure 126/82, his body mass index 23.8. Alert, oriented. He does not seem to be in any distress. HEENT: Negative. NECK: Supple. LUNGS: Clear. HEART: S1, S2, without murmur. ABDOMEN: Soft. No rebound. No guarding. No mass. No tenderness. EXTREMITIES: His distal pulses appear normal. He has normal monofilament test. ASSESSMENT: 1.Diabetes mellitus: So far, seems to be getting much better. 2.Hypertension. 3.Hyperlipidemia. 4.Chronic kidney disease. PLAN: Today, we will check his basic metabolic profile, lipid profile, hemoglobin A1c, microalbuminuria. Irefilled his Cozaar. I refilled his chlorthalidone. He will receive today's zoster shingles shot, aswell as the Prevnar, and the 2nd pneumonia shot will be given next year. He agreed and accepted. YO:MEDQ C: CONFIRM #: [id number] documented in this encounter Plan of Treatment Not on filedocumented as of this encounter Goals Goal Patient Goal Associated Recent Patient-Stated? Author Type Problems Progress Eating Diabetes On track No Genaro healthy Education (05/30/2017 ASHIA Crews, 4:29 PM MANAGER MAIL) ASHLEY, CHEIKH Note: Formatting of this note might be d ifferent from the original. Count carbohydrates at meals and snacks. documented as of this encounter Results Microalbumin Urine Random (UMAR) (10/26/2017 10:44 AM CDT) athologist Signature Microalbumin 35.2 mg/L PN SOFT Urine U Creat Random 140 mg/dL PN SOFT Microalbumin/Crea 25.1 0.0 - 30.0 PN SOFT tinine Ratio Specimen Anatomical Collection Method Collection Time Receive d Time (Source) Location / / Volume Laterality Urine specimen 10/26/2017 10:44 8 2:57 (specimen) AM CDT PM CDT Narrative PN SOFT - 10/26/2017 3:55 PM CDT Performed at [facility], [address] [place] [address] CLIA number [id number] Sunny Giraldo MD LAB_1 Performing Organization Address City/State/ZIP Code Phon e Number PN SOFT [address] [place] [address] [phone] Hgb A1c (10/26/2017 10:44 AM CDT) athologist Signature HGB A1C 5.1 4.0 - 5.6 % PN SOFT Specimen Anatomical Collection Method Collection Time Receive d Time (Source) Location / / Volume Laterality 10/26/2017 10:44 10/26/2017 4:29 AM CDT PM CDT Narrative PN SOFT - 10/27/2017 10:52 AM CDT Performed at [place] [address] [place] [address] CLIA number [id number] Sunny Giraldo MD LAB_1 Performing Organization Address [facility] Phon e Number PN SOFT [address] [place] [id number] (ABNORMAL) Lipid Panel - LDLD If Trig High (10/26/2017 10:44 AM CDT) [facility] gist Method Time Signature Cholesterol 250 (H) 0 - 199 PN SOFT mg/dL Triglycerides 148 4 - 149 PN SOFT mg/dL HDL Cholesterol 41 >39 mg/dL PN SOFT Cholesterol/HDL 6.1 PN SOFT Ratio Screen LDL Calculated 179 (H) 19 - 130 PN SOFT mg/dL Non HDL Chol, Calc 209 (H) 0 - 159 PN SOFT mg/dL Length Of Fast 16.0 PN SOFT Specimen Anatomical Collection Method Collection Time Receive d Time (Source) Location / / Volume Laterality 10/26/2017 10:44 10/26/2017 2:56 AM CDT PM CDT Narrative PN SOFT - 10/26/2017 3:34 PM CDT Performed at [facility], [address] [place] [address] CLIA number [id number] Sunny Giraldo MD LAB_1 Performing Organization Address [facility] Phon e Number PN SOFT [address] [place] [address] (ABNORMAL) Basic Metabolic Panel (10/26/2017 10:44 AM CDT) Analysis Performed At [facility] logist Time Signature Creatinine 1.50 (H) 0.73 - PN SOFT Serum 1.18 mg/dL Lab Glucose 108 (H) 70 - 100 PN SOFT mg/dL Comment: The stated glucose range is for the fast ing state. Non-fasting glucose range is 70-180 mg/d L CO2 28 22 - 31 mmol/L PN SOFT Chloride 104 98 - 109 mmol/L PN SOFT Potassium 4.7 3.5 - 5.2 mmol/L PN SOFT Sodium 141 136 - 145 mmol/L PN SOFT Blood Urea Nitrogen 26 9 - 26 mg/dL PN SOFT Calcium 10.3 8.4 - 10.4 mg/dL PN SOFT Est GFR Am >60 >60 mL/min/1.73m2 PN SOFT Est GFR Non-Afr Am 52 (L) >60 mL/min/1.73m2 PN SOFT Comment: Normal>60, moderate decrease 30 - 59, se alexia decrease 15 - 29, renal failure <15 mL/min/1.73 m2 NOTE: ??Choose the eGFR result above jamie ropriate for the race of the patient. Specimen Anatomical Collection Method Collection Time Receive d Time (Source) Location / / Volume Laterality 10/26/2017 10:44 10/26/2017 2:56 AM CDT PM CDT Narrative PN SOFT - 10/26/2017 4:15 PM CDT Performed at [facility], [address] [place] [address] CLIA number [id number] Sunny Giraldo MD LAB_1 Performing Organization Address City/State/ZIP Code Phon e Number PN SOFT [address] [place] [address] documented in this encounter Visit Diagnoses Diagnosis Essential hypertension (HRC) - Primary Unspecified essential hypertension Hyperlipidemia, unspecified hyperlipidem ia type (HRC) Chronic kidney disease (CKD), stage III (moderate) (HRC) Chronic kidney disease, Stage III (moder ate) Type 2 diabetes mellitus without complic ation, without long-term current use of insulin (HRC) Chronic kidney disease, stage III (moder ate) (HRC) Chronic kidney disease, Stage III (moder ate) Need for viral immunization Need for prophylactic vaccination and in oculation against other viral diseases Essential hypertension (HRC) Unspecified essential hypertension Hyperlipidemia, unspecified hyperlipidem ia type (HRC) Type 2 diabetes mellitus without complic ation, without long-term current use of insulin (HRC) documented in this encounter Care Teams Harbour Master Relationship Specialty Start Date End Date Sunny Giraldo MD PCP - General Family Practice 02/21/17 08/08/20 [address] [place] [address] documented as of this encounter
--- OUTSIDE RECORDS SUMMARY | 2022-04-16 08:09 | XMS_ITS | Encounter Summary ---
:1960 Author Organization [facility] Address [address], [place] [address] Care Team Providers Name Role Phone Pita Giraldo MD Primary Care Provider Encounter Details Date Type Department Care Team Description 10/26/2017 Lab Visit [facility] Essential hypertension; [address] Hyperlipidemia, unspecified hyperlipidemia type; [place] [address] Type 2 diabetes mellitus wit hout complication, without long-term current use of insulin ([facility]) [phone] Social History Tobacco Use Types Packs/Day Years [...] documented as of this encounter Progress Notes Pita Giraldo MD - 10/29/2017 10:35 AM CDT Addended by: PITA GIRALDO on: 10/29/2017 10:35 AM Modules accepted: Orders Pita Giraldo MD - 10/29/2017 10:33 AM CDT Addended by: PITA GIRALDO on: 10/29/2017 10:33 AM Modules accepted: Orders documented in this encounter Plan of Treatment Not on filedocumented as of this encounter Goals Goal Patient Goal Associated Recent Patient-Stated? Author Type Problems Progress Eating Diabetes On track No Genaro, healthy Education (05/30/2017 ASHIA Crews, 4:29 PM [employer]TAIN [employer]) ASHLEY, CHEIKH Note: Formatting of this note might be d ifferent from the original. Count carbohydrates at meals and snacks. documented as of this encounter Procedures Procedure Name Priority Date/Time Associated Diagnosis Comme nts LIPID PANEL AND Routine 10/26/2017 10:44 Hyperlipidemia, Resul ts for this DIRECT LDL(IF AM CDT unspecified procedure are in NEEDED) hyperlipidemia type the resu lts section. BASIC METABOLIC Routine 10/26/2017 10:44 Essential hypertensio n Results for this PANEL AM CDT procedure are i n the results section. ALBUMIN/CREAT Routine 10/26/2017 10:44 Type 2 diabetes Results for this RATIO AM CDT mellitus without procedure a re in complication, without the re sults long-term current use sectio n. of insulin (HRC) HGB A1C Routine 10/26/2017 10:44 Type 2 diabetes Results for this AM CDT mellitus without procedure a re in complication, without the re sults long-term current use sectio n. of insulin (HRC) documented in this encounter Results Lipid Panel - LDLD If Trig High (01/28/2018 11:42 AM CDT) Analysis Performed At Patho logist Time Signature Cholesterol 156 0 - 199 PN SOFT mg/dL Triglycerides 101 4 - 149 PN SOFT mg/dL HDL Cholesterol 43 >39 mg/dL PN SOFT Cholesterol/HDL 3.6 PN SOFT Ratio Screen LDL Calculated 93 19 - 130 PN SOFT mg/dL Non HDL Chol, Calc 113 0 - 159 PN SOFT mg/dL Length Of Fast 16.0 PN SOFT Specimen Anatomical Collection Method Collection Time Receive d Time (Source) Location / / Volume Laterality 01/28/2018 11:42 01/28/2018 2:14 AM CDT PM CDT Narrative PN SOFT - 01/28/2018 3:28 PM CDT Performed at [facility]3], [address] [place] [address] CLIA number [id number] Pita Giraldo MD LAB_1 Performing Organization Address [facility] Phon e Number PN SOFT [address] [place] [address] (ABNORMAL) Basic Metabolic Panel (01/28/2018 11:42 AM CDT) [facility] Signature Creatinine 1.40 (H) 0.73 - PN SOFT Serum 1.18 mg/dL Lab Glucose 109 (H) 70 - 100 PN SOFT mg/dL Comment: The stated glucose range is for the fast ing state. Non-fasting glucose range is 70-180 mg/d L CO2 29 22 - 31 mmol/L PN SOFT Chloride 102 98 - 109 mmol/L PN SOFT Potassium 4.4 3.5 - 5.2 mmol/L PN SOFT Sodium 140 136 - 145 mmol/L PN SOFT Blood Urea Nitrogen 22 9 - 26 mg/dL PN SOFT Calcium 10.6 (H) 8.4 - 10.4 mg/dL PN SOFT Est [...] PM CDT Narrative PN SOFT - 01/28/2018 3:28 PM CDT Performed at [facility]3], [address] [place] [address] CLIA number [id number] Pita Giraldo MD LAB_1 Performing Organization Address [facility] Phon e Number PN SOFT [address] [place] [address] [phone] Microalbumin Urine Random (UMAR) (10/26/2017 10:44 AM [...] - 10/26/2017 3:55 PM CDT Performed at [facility]3], [address] [place] [address] CLIA number [id number] Pita Giraldo MD LAB_1 Performing Organization Address [facility] Phon e Number PN SOFT [address] [place] [address] Hgb A1c (10/26/2017 10:44 AM CDT) athologist Signature HGB A1C 5.1 4.0 - 5.6 % PN SOFT Specimen Anatomical Collection Method Collection Time Receive d Time (Source) Location / / Volume Laterality 10/26/2017 10:44 10/26/2017 4:29 AM CDT PM CDT Narrative PN SOFT - 10/27/2017 10:52 AM CDT Performed at [facility] [address] [place] [address] CLIA number [id number] Pita Giraldo MD LAB_1 Performing Organization Address City/[facility] Phon e Number PN SOFT [address] [place] [address] (ABNORMAL) Lipid Panel - LDLD If Trig High (10/26/2017 10:44 AM CDT) [facility] Method Time Signature Cholesterol 250 (H) 0 [...] - 10/26/2017 3:34 PM CDT Performed at [facility]3], [facility] [address] [place] [address] CLIA number [id number] Pita Giraldo MD LAB_1 Performing Organization Address City/State/ZIP Code Phon e Number PN SOFT [address] [place] [address] [phone] (ABNORMAL) Basic Metabolic Panel (10/26/2017 10:44 AM CDT) Analysis Performed At Patho logist Time Signature Creatinine 1.50 (H) 0.73 [...] - 10/26/2017 4:15 PM CDT Performed at [facility]3], [address] [place] [address] CLIA number [id number] Pita Giraldo MD LAB_1 Performing Organization Address City/State/ZIP Code [facility] e Number PN SOFT [address] [place] [address] [phone] documented in this encounter Visit Diagnoses Diagnosis Essential hypertension (HRC) Unspecified essential hypertension Hyperlipidemia, unspecified hyperlipidem ia type (HRC) Type 2 diabetes mellitus without complic ation, without long-term current use of insulin (HRC) Essential hypertension (HRC) Unspecified essential hypertension Hyperlipidemia, unspecified hyperlipidem ia type (HRC) documented in this encounter Care Teams Cold Press Operator Relationship Specialty Start Date End Date Pita Giraldo MD PCP - General Family Practice 02/21/17 08/08/20 [address] [place] [address] documented as of this encounter
--- OUTSIDE RECORDS SUMMARY | 2022-04-16 08:09 | XMS_ITS | Encounter Summary ---
:1960 Author Organization [employer] Address [address], [place] [address] Care Team Providers Name Role Phone Pita Giraldo MD Primary Care Provider Reason for Visit Reason Comments Diabetes Encounter Details Date Type Department Care Team Description 03/15/2017 Office Visit [facility] Pita Giraldo M D Hyperlipidemia, unspecified hyperlipidem ia type (Primary Dx); Medicine [id number] Chronic kidney disease, stage III (moder ate) ([facility]); [address] [place], [place] Type 2 diabetes mellitus wit hout complication, without long-term current use of insulin ([facility]); [place] [address] Essential hypertension; [address] Liver enzyme elevation Social History Tobacco Use Types Packs/Day Years [...] Sign Reading Time Taken Comments Blood Pressure 110/74 03/15/2017 1:05 PM CDT Pulse 56 03/15/2017 1:05 PM CDT Temperature - - Respiratory Rate 16 03/15/2017 1:05 PM CDT Oxygen Saturation - - Inhaled Oxygen Concentration - - Weight 89.4 kg (197 lb) 03/15/2017 1:05 PM CDT Height 182.9 cm (6') 03/15/2017 1:05 PM CDT Body Mass Index 26.72 03/15/2017 1:05 PM CDT documented in this encounter Progress Notes Pita Giraldo MD - 03/28/2017 7:32 AM CDT Addended by: PITA GIRALDO on: 03/28/2017 07:32 AM Modules accepted: Orders Pita Giralod MD - 03/15/2017 1:50 PM CDT NAME: JOSH MOSLEY MR#: [id number] CSN: [id number] AUTHENTICATING CLINICIAN: Pita Giraldo MD CONFIRM #: [id number] LOC: 4402 CLINIC PROGRESS NOTE DATE OF VISIT: 03/15/2017 : 1960 SUBJECTIVE: This 57-year-old male is here with his for followup of newly- diagnosed diabetes mellitus. The patient has been on Glucophage 500 mg b.i.d. now. He is doing much better. His blood sugar is going down. He is monitoring his blood sugar. The only thing is his morning reading is still a little bit on the high side, but, otherwise, postprandial and average are in good control. He has been onthe medication of Glucophage almost less than 2 weeks, with no side effects. REVIEW OF SYSTEMS: His HEENT, neck, lung, cardiovascular, GI, skeletal, muscle negative. The patient went to the eye exam. Eyes appear pretty within normal. PAST MEDICAL HISTORY: Hypertension, hyperlipidemia, chronic kidney disease, GE reflux. He sees a assistant manager pt also. He was on Tenormin 50 mg, but he is getting some dizziness with it. I will decrease the Tenormin slowly and then we will hopefully be able to stop it. Was started, according to the patient, 25 years ago when he had high blood pressure, and he then kept taking it. MEDICATIONS: Chlorthalidone 25 mg. He takes vitamin pills. Cozaar 25 mg that I started him on, will watch him closely, doing very well with it with no side effects. He is on metformin 500 mg b.i.d. and Prilosec 20 mg. The patient denies any problem. According to the patient, he feels much better and he lost approximately 10, 15, maybe even close to 20 pounds with better activity, diet, exercise, and taking medication. OBJECTIVE: VITAL SIGNS: Today, his blood pressure is 110/74. His pulse is 56, respirations 16. His body mass index is 26.7. GENERAL: Alert, oriented, very pleasant, does not seem to be distressed. He is motivated and very compliant with his treatment. HEENT: Negative. NECK: Supple. LUNGS: Clear. HEART: S1, S2, without murmur. ABDOMEN: Soft. EXTREMITIES: Good distal pulse. Normal monofilament touch and good hygiene. ASSESSMENT: 1.Diabetes mellitus. New onset diabetes. He is doing very well with the medication and activities. 2.Hypertension. 3.Hyperlipidemia. 4.Kidney disease. PLAN: At this time, today, I am going to check his creatinine and his potassium. He did also have a very mild elevated liver enzyme that we will check. Continue the same medication. Any concerns, questions, back to the clinic. Otherwise, I will see the patient in 2 months. I already ordered labs for him to come in April before we see him. I will check liver. I will check his microalbuminuria, hemoglobin A1c, and will go from there. The patient agreed. YO:MEDQ C: CONFIRM #: [id number] Pita Giralod MD - 03/15/2017 1:00 PM CDT Please pt need to come for lab test only tomorrow or today ,it been ordered. documented in this encounter Plan of Treatment Not on filedocumented as of this encounter Results (ABNORMAL) Microalbumin Urine Random (UMAR) (04/24/2017 4:17 PM CDT) [facility] Method Time Signature Microalbumin 31.1 mg/L PN SOFT Urine U Creat Random 65 mg/dL PN SOFT Microalbumin/Crea 47.8 (H) 0.0 - PN SOFT tinine Ratio 30.0 Specimen Anatomical Collection Method Collection Time Receive d Time (Source) Location / / Volume Laterality Urine specimen 04/24/2017 4:17 PM 017 8:39 (specimen) CDT PM CDT Narrative PN SOFT - 04/24/2017 9:03 PM CDT Performed at [facility], [address] [place] [address] CLIA number [id number] Pita Giraldo MD LAB_1 Performing Organization Address [facility] Phon e Number PN SOFT [address] [place] [address] [phone] (ABNORMAL) Liver Panel(Hepatic Function Panel) (04/24/2017 4:08 PM CDT) [facility] Method Time Signature Alk Phos 52 40 [...] - 04/24/2017 8:57 PM CDT Performed at [facility], [address] [place] [address] CLIA number [id number] Pita Giraldo MD LAB_1 Performing Organization Address City/[facility]/ZIP Code Phon e Number PN SOFT [address] [place] [address] (ABNORMAL) Basic Metabolic Panel (04/24/2017 4:08 PM [...] - 04/24/2017 8:57 PM CDT Performed at [facility], [address] [place] [address] CLIA number [id number] Pita Giraldo MD LAB_1 Performing Organization Address City/[facility]/ZIP Code Phon e Number PN SOFT [address] [place] [address] (ABNORMAL) Hgb A1c (04/24/2017 4:08 PM CDT) P athologist Signature HGB A1C 6.2 (H) 4.0 - 5.6 % PN SOFT Specimen Anatomical Collection Method Collection Time Receive d Time (Source) Location / / Volume Laterality 04/24/2017 4:08 PM 10/04/201 7 9:26 CDT PM CDT Narrative PN SOFT - 04/25/2017 10:37 AM CDT Performed at [facility] [address] [place] [address] CLIA number [id number] Pita Giraldo MD LAB_1 Performing Organization Address [facility] Phon e Number PN SOFT [address] [place] [address] (ABNORMAL) Potassium (03/15/2017 1:46 PM CDT) P athologist Signature Potassium 3.4 (L) 3.5 - 5.2 PN SOFT mmol/L Specimen Anatomical Collection Method Collection Time Receive d Time (Source) Location / / Volume Laterality 03/15/2017 1:46 PM 7 2:37 CDT PM CDT Narrative PN SOFT - 03/15/2017 3:42 PM CDT Performed at [facility], [address] [place] [address] CLIA number [id number] Pita Giraldo MD LAB_1 Performing Organization Address [facility] Phon e Number PN SOFT [address] [place] [address] (ABNORMAL) Creatinine (03/15/2017 1:46 PM CDT) Analysis Performed At Patho logist [...] Time (Source) Location / / Volume Laterality 03/15/2017 1:46 PM 7 2:37 CDT PM CDT Narrative PN SOFT - 03/15/2017 3:42 PM CDT Performed at [facility], [address] [facility], [place] [address] CLIA number [id number] Pita Giraldo MD LAB_1 Performing Organization Address City/State/ZIP Code [facility] e Number PN SOFT [address] [place] [address] [phone] documented in this encounter Visit Diagnoses Diagnosis Hyperlipidemia, unspecified hyperlipidem ia type (HRC) - Primary Chronic kidney disease, stage III (moder ate) (HRC) Chronic kidney disease, Stage III (moder ate) Type 2 diabetes mellitus without complic ation, without long-term current use of insulin (HRC) Essential hypertension (HRC) Unspecified essential hypertension Liver enzyme elevation Nonspecific elevation of levels of trans aminase or lactic acid dehydrogenase (LDH) Chronic kidney disease, stage III (moder ate) (HRC) - Primary Chronic kidney disease, Stage III (moder ate) Essential hypertension (HRC) Unspecified essential hypertension Type 2 diabetes mellitus without complic ation, without long-term current use of insulin (HRC) Chronic kidney disease, stage III (moder ate) (HRC) Chronic kidney disease, Stage III (moder ate) Liver enzyme elevation Nonspecific elevation of levels of trans aminase or lactic acid dehydrogenase (LDH) Essential hypertension (HRC) Unspecified essential hypertension documented in this encounter Care Teams Trousseau Consultant Relationship Specialty Start Date End Date Pita Giraldo MD PCP - General Family Practice 02/21/17 08/08/20 [address] [place] [address] documented as of this encounter
--- OUTSIDE RECORDS SUMMARY | 2022-04-16 08:09 | XMS_ITS | Encounter Summary ---
:1960 Author Organization [employer] Address [address], [place] [address] Care Team Providers Name Role Phone Sunny Giraldo MD Primary Care Provider Reason for Visit Reason Comments Diabetes Encounter Details Date Type Department Care Team Description 02/25/2018 Office Visit [facility] Sunny Giraldo M D Type 2 diabetes mellitus without complic ation, without long-term current use of insulin (HRC) (Primary Dx); Medicine [address] Essential hypertension; [address]. [place], [place] Hyperlipidemia, unspecified hyperlipidemia type; [place] [id number] Chronic nonalcoholic liver disease; [address] Screening for colon cancer Social History Tobacco Use Types Packs/Day Years [...] Sign Reading Time Taken Comments Blood Pressure 149/96 02/25/2018 4:30 PM CDT Pulse 71 02/25/2018 4:30 PM CDT Temperature - - Respiratory Rate 16 02/25/2018 4:20 PM CDT Oxygen Saturation - - Inhaled Oxygen Concentration - - Weight 82.6 kg (182 lb) 02/25/2018 4:20 PM CDT Height 184.2 cm (6' 0.5) 02/25/2018 4:20 PM CDT Body Mass Index 24.34 02/25/2018 4:20 PM CDT documented in this encounter Progress Notes Sunny Giraldo MD - 02/25/2018 5:11 PM CDT NAME: JOSH MOSLEY MR#: [id number] CSN: [id number] AUTHENTICATING CLINICIAN: Sunny Giraldo MD CONFIRM #: [id number] LOC: 4402 CLINIC PROGRESS NOTE DATE OF VISIT: 02/25/2018 : 1960 SUBJECTIVE: A 57-year-old male. He is coming today to clinic for his diabetes followup. According to the patient, he is doing very well. He is monitoring blood sugars. His blood sugar according to the patient, is very normal in the mornings. He denies any side effects. A couple of weeks ago, he was alsoseen by his Patient Relations Manager because he has some kidney issues. He is on Glucophage the tech writer knows that and will monitor closely. PAST MEDICAL HISTORY: Also hypertension, hyperlipidemia, chronic nonalcoholic liver disease in the past, GERD, chronic kidney disease, stage 3, moderate, diabetes mellitus; his hemoglobin A1c in October was 5.1. He saw his tech writer again on February 17, and he ordered additional labs that will be done in a year. The lab that been pending for a year is vitamin D, parathyroid hormone, microalbuminuria, random hemoglobin in 1 year, renal function in 1 year. OBJECTIVE: VITAL SIGNS: Today his blood pressure was 149/96, and according to the patient, 2 weeks ago it was 130/70 or 80 in the Nephrology Clinic. HEENT: Negative. NECK: Supple. LUNGS: Clear. HEART: S1, S2, without murmur. ABDOMEN: Soft. No rebound. No guarding. No mass. EXTREMITIES: No pitting edema. NEUROLOGIC: Monofilament test normal. Good hygiene. ASSESSMENT/PLAN: 1.Diabetes mellitus, type 2: Very well controlled. 2.Hypertension and kidney problem: He follows with the tech writer. 3.Liver issue: I will check his liver enzyme, hemoglobin A1c. Otherwise, will see the patient in June for diabetes, again with 6-month followup. He understands and accepts that and also he will come in the fall for a flu shot and if he has any questions or concerns, he will come here or he will see the tech writer to monitor his blood pressure. He understands and accepts that. Now he is going to watch his blood pressure. YO:MEDQ C: CONFIRM #: [id number] documented in this encounter Plan of Treatment Not on filedocumented as of this encounter Goals Goal Patient Goal Associated Recent Patient-Stated? Author Type Problems Progress Eating Diabetes On track Kelin Lam, healthy Education (05/30/2017 ASHIA Crews, 4:29 PM HEMODIALYSIS LAB TECHNICIAN) ASHLEY, CHEIKH Note: Formatting of this note might be d ifferent from the original. Count carbohydrates at meals and snacks. documented as of this encounter Results (ABNORMAL) Liver Panel(Hepatic Function Panel) (07/07/2018 2:56 PM HEMODIALYSIS LAB TECHNICIAN) [facility] gist Method Time Signature Alk Phos 45 [...] Volume Laterality 07/07/2018 2:56 PM 8 5:05 HEMODIALYSIS LAB TECHNICIAN PM HEMODIALYSIS LAB TECHNICIAN Narrative PN SOFT - 07/07/2018 5:31 PM HEMODIALYSIS LAB TECHNICIAN Performed at [facility], [address] [place] [address] CLIA number [id number] Sunny Giraldo MD LAB_1 Performing Organization Address [facility] Code Phon e Number PN SOFT [address] [place] [address] Microalbumin Urine Random (UMAR) (07/07/2018 2:56 PM HEMODIALYSIS LAB TECHNICIAN) athologist Signature Microalbumin 18.5 mg/L PN SOFT Urine U Creat Random 124 mg/dL PN SOFT Microalbumin/Crea 14.9 0.0 - 30.0 PN SOFT tinine Ratio Specimen Anatomical Collection Method Collection Time Receive d Time (Source) Location / / Volume Laterality Urine specimen 07/07/2018 2:56 PM 018 5:05 (specimen) HEMODIALYSIS LAB TECHNICIAN PM HEMODIALYSIS LAB TECHNICIAN Narrative PN SOFT - 07/07/2018 6:09 PM HEMODIALYSIS LAB TECHNICIAN Performed at [facility], [address] [place] [address] CLIA number [id number] Sunny Giraldo MD LAB_1 Performing Organization Address [facility] Phon e Number PN SOFT [address] [place] [address] Hgb A1c (07/07/2018 2:56 PM HEMODIALYSIS LAB TECHNICIAN) athologist Signature HGB A1C 5.5 4.0 - 5.6 % PN SOFT Specimen Anatomical Collection Method Collection Time Receive d Time (Source) Location / / Volume Laterality 07/07/2018 2:56 PM 8 8:04 HEMODIALYSIS LAB TECHNICIAN PM HEMODIALYSIS LAB TECHNICIAN Narrative PN SOFT - 07/07/2018 11:46 PM HEMODIALYSIS LAB TECHNICIAN Performed at [facility] [address] [place] [address] CLIA number [id number] Sunny Giraldo MD LAB_1 Performing Organization Address [facility] Code Phon e Number PN SOFT [address] [place] [address] (ABNORMAL) Basic Metabolic Panel (07/07/2018 2:56 PM HEMODIALYSIS LAB TECHNICIAN) Analysis Performed At Patho logist Time Signature Creatinine 1.40 (H) 0.73 - [...] Volume Laterality 07/07/2018 2:56 PM 8 5:05 HEMODIALYSIS LAB TECHNICIAN PM HEMODIALYSIS LAB TECHNICIAN Narrative PN SOFT - 07/07/2018 5:31 PM HEMODIALYSIS LAB TECHNICIAN Performed at [facility], [address] [place] [id number] CLIA number [id number] Sunny Giraldo MD LAB_1 Performing Organization Address [facility] e Number PN SOFT [address] [place] [address] Hgb A1c (02/25/2018 4:58 PM CDT) P athologist Signature HGB A1C 5.5 4.0 - 5.6 % PN SOFT Specimen Anatomical Collection Method Collection Time Receive d Time (Source) Location / / Volume Laterality 02/25/2018 4:58 PM 8 8:54 CDT PM CDT Narrative PN SOFT - 02/25/2018 10:40 PM CDT Performed at [facility], [address] [place] [address] CLIA number [id number] Sunny Giraldo MD LAB_1 Performing Organization Address City/State/ZIP Code Phon e Number PN SOFT [address] [place] [address] documented in this encounter Visit Diagnoses Diagnosis Type 2 diabetes mellitus without complic ation, without long-term current use of insulin (HRC) - Primary Essential hypertension (HRC) Unspecified essential hypertension Hyperlipidemia, unspecified hyperlipidem ia type (HRC) Chronic nonalcoholic liver disease (HRC) Unspecified chronic liver disease withou t mention of alcohol Screening for colon cancer Special screening for malignant neoplasm s, colon Type 2 diabetes mellitus without complic ation, without long-term current use of insulin (HRC) Hyperlipidemia, unspecified hyperlipidem ia type (HRC) Type 2 diabetes mellitus without complic ation, without long-term current use of insulin (HRC) Chronic nonalcoholic liver disease (HRC) Unspecified chronic liver disease withou t mention of alcohol documented in this encounter Care Teams Can Patcher Relationship Specialty Start Date End Date Sunny Giraldo MD PCP - General Family Practice 02/21/17 08/08/20 [address] [place] [address] documented as of this encounter
--- OUTSIDE RECORDS SUMMARY | 2022-04-16 08:09 | XMS_ITS | Encounter Summary ---
:1960 Author Organization [employer] Address [address], [place] [address] Care Team Providers Name Role Phone Sunny Giraldo MD Primary Care Provider Encounter Details Date Type Department Care Team Description 01/28/2018 Lab Visit [facility] Essential hypertension; [address] Hyperlipidemia, [place] [address] Social History Tobacco Use [...] healthy Education (05/30/2017 ASHIA Crews, 4:29 PM ANALYSIS MANAGER) ASHLEY, CHEIKH Note: Formatting of this note might be d ifferent from the original. Count carbohydrates at meals and snacks. documented as of this encounter Procedures Procedure Name Priority Date/Time Associated Diagnosis Comme nts LIPID PANEL AND Routine 01/28/2018 11:42 Hyperlipidemia, Resul ts for this DIRECT LDL(IF AM CDT unspecified procedure are in NEEDED) hyperlipidemia type the resu lts section. BASIC METABOLIC Routine 01/28/2018 11:42 Essential hypertensio n Results for this PANEL AM CDT procedure are i n the results section. documented in this encounter Results Lipid Panel - LDLD If Trig High (01/28/2018 11:42 AM CDT) Analysis Performed At [facility] Time Signature Cholesterol 156 0 - 199 [...] - 01/28/2018 3:28 PM CDT Performed at [facility], [address] [place] [address] CLIA number [id number] Sunny Giraldo MD LAB_1 Performing Organization Address City/State/ZIP Code Phon e Number PN SOFT [address] [place] [address] (ABNORMAL) Basic Metabolic Panel (01/28/2018 11:42 AM CDT) Analysis Performed At [facility] Time Signature Creatinine 1.40 (H) 0.73 - [...] - 01/28/2018 3:28 PM CDT Performed at [facility], [address] [place] [address] CLIA number [id number] Sunny Giraldo MD LAB_1 Performing Organization Address City/State/ZIP Code Phon e Number PN SOFT [address] [place] [address] documented in this encounter Visit Diagnoses Diagnosis Essential hypertension (HRC) Unspecified essential hypertension Hyperlipidemia, unspecified hyperlipidem ia type (HRC) documented in this encounter Care Teams Landscape Laborer Relationship Specialty Start Date End Date Sunny Giraldo MD PCP - General Family Practice 02/21/17 08/08/20 [address] [place] [address] documented as of this encounter
--- OUTSIDE RECORDS SUMMARY | 2022-04-16 08:09 | XMS_ITS | Encounter Summary ---
:1960 Author Organization [employer] Address [address] [place] [address] Care Team Providers Name Role Phone Pita Giraldo MD Primary Care Provider Encounter Details Date Type Department Care Team Description 03/15/2017 Lab Visit [facility] Chronic kidney disease, stag e III (moderate) (HRC) (Primary Dx); [address]. [place] [address] Social History Tobacco Use [...] documented as of this encounter Progress Notes iPta Giraldo MD - 03/18/2017 7:51 AM CDT Addended by: PITA GIRALDO on: 03/18/2017 07:51 AM Modules accepted: Orders documented in this encounter Plan of Treatment Not on filedocumented as of this encounter Procedures Procedure Name Priority Date/Time Associated Diagnosis Comme nts CREATININE / GFR Routine 03/15/2017 1:46 PM Chronic kidney Res ults for this CDT disease, stage III procedure are in (moderate) (HRC) the results Essential hypertension secti on. POTASSIUM Routine 03/15/2017 1:46 PM Chronic kidney Results for this CDT disease, stage III procedure are in (moderate) (HRC) the results Essential hypertension secti on. documented in this encounter Results (ABNORMAL) Creatinine (04/01/2017 4:59 PM CDT) Analysis Performed At Patho logist Time Signature Creatinine 1.40 (H) 0.73 - PN SOFT Serum 1.18 mg/dL Est GFR >60 >60 PN SOFT Am mL/min/1.7 3m2 Est GFR Non-Afr 56 (L) >60 PN SOFT Am mL/min/1.7 3m2 Comment: Normal>60, moderate decrease 30 - 59, se alexia decrease 15 - 29, renal failure <15 mL/min/1.73 m2 NOTE: ??Choose the eGFR result above jamie ropriate for the race of the patient. Specimen Anatomical Collection Method Collection Time Receive d Time (Source) Location / / Volume Laterality 04/01/2017 4:59 PM 7 8:40 CDT PM CDT Narrative PN SOFT - 04/01/2017 8:58 PM CDT Performed at [facility], [address] [place] [address] CLIA number [id number] Pita Giraldo MD LAB_1 Performing Organization Address City/State/ZIP Code Phon e Number PN SOFT [address] [place] [address] [phone] Potassium (04/01/2017 4:59 PM CDT) P athologist Signature Potassium 3.5 3.5 - 5.2 PN SOFT mmol/L Specimen Anatomical Collection Method Collection Time Receive d Time (Source) Location / / Volume Laterality 04/01/2017 4:59 PM 7 8:40 CDT PM CDT Narrative PN SOFT - 04/01/2017 8:58 PM CDT Performed at [facility], [address] [place] [address] CLIA number [id number] Pita Giraldo MD LAB_1 Performing Organization Address [facility] Phon e Number PN SOFT [address] [place] [address] (ABNORMAL) Potassium (03/15/2017 1:46 PM CDT) P athologist Signature Potassium 3.4 (L) 3.5 - 5.2 PN SOFT mmol/L Specimen Anatomical Collection Method Collection Time Receive d Time (Source) Location / / Volume Laterality 03/15/2017 1:46 PM 7 2:37 CDT PM CDT Narrative PN SOFT - 03/15/2017 3:42 PM CDT Performed at [facility], [address] [place] [address] CLIA number [id number] Pita Giraldo MD LAB_1 Performing Organization Address [facility] Phon e Number PN SOFT [address] [place] [address] [phone] (ABNORMAL) Creatinine (03/15/2017 1:46 PM CDT) Analysis [...] - 03/15/2017 3:42 PM CDT Performed at [facility], [facility] [address] [place] [address] CLIA number [id number] Pita Giraldo MD LAB_1 Performing Organization Address City/State/ZIP Code Phon e Number PN SOFT [address] [place] [address] [phone] documented in this encounter Visit Diagnoses Diagnosis Chronic kidney disease, stage III (moder ate) (HRC) - Primary Chronic kidney disease, Stage III (moder ate) Essential hypertension (HRC) Unspecified essential hypertension Chronic kidney disease, stage III (moder ate) (HRC) Chronic kidney disease, Stage III (moder ate) Essential hypertension (HRC) Unspecified essential hypertension documented in this encounter Care Teams Defect Cutter Relationship Specialty Start Date End Date Pita Giraldo MD PCP - General Family Practice 02/21/17 08/08/20 [address] [place] [address] documented as of this encounter
--- OUTSIDE RECORDS SUMMARY | 2022-04-16 08:09 | XMS_ITS | Encounter Summary ---
:1960 Author Organization [facility] Address [address], [place] [address] Care Team Providers Name Role Phone Sunny Giraldo MD Primary Care Provider Encounter Details Date Type Department Care Team Description 06/06/2017 Notes/Orders [facility] 3931 Newton Hernandez MD Nephrology 3931 [facility] 3931 [facility] [address] [place] [address] [id number] [phone] Social History Tobacco Use Types Packs/Day Years [...] Lam Education (05/30/2017 ASHIA Crews, 4:29 PM RECEIVING SUPERVISOR) CHEIKH RAMIREZ Note: Formatting of this note might be d ifferent from the original. Count carbohydrates at meals and snacks. documented as of this encounter Visit Diagnoses Not on filedocumented in this encounter Care Teams Water Treatment Plant Repairer Relationship Specialty Start Date End Date Sunny Giraldo MD PCP - General Family Practice 02/21/17 08/08/20 [address] [place] [address] documented as of this encounter
--- OUTSIDE RECORDS SUMMARY | 2022-04-16 08:10 | XMS_ITS | Encounter Summary ---
:1960 Author Organization [facility] Address [address] [place] [address] Care Team Providers Name Role Phone Md THEE Yepez Primary Care Provider Encounter Details Date Type Department Care Team Description 06/03/2013 Notes/Orders [facility] 3931 Newton Hernandez MD Nephrology 3931 [facility] 3931 [facility] [address] [place] [address] [phone] Social History Tobacco Use Types Packs/Day Years Used Date Smoking Tobacco: Never Assessed Sex Assigned at Date Recorded Not on file documented as of this encounter Plan of Treatment Not on filedocumented as of this encounter Visit Diagnoses Not on filedocumented in this encounter Care Teams Director Of Revenue Relationship Specialty Start Date End Date Md Yepez MD PCP - General 12/01/12 10/11/15 [place], [place] [id number] documented as of this encounter
--- OUTSIDE RECORDS SUMMARY | 2022-04-16 08:10 | XMS_ITS | Encounter Summary ---
:1960 Author Organization [facility] Address [address] [address] Care Team Providers Name Role Phone Jun Benz MD Primary Care Provider Reason for Visit Reason Comments Refill Encounter Details Date Type Department Care Team Description 10/06/2015 Refill Specialty Center 3931 Newton Hernandez MD Refill Nephrology 3931 [facility] [address] [place] [address] [place] [address] [phone] Social History Tobacco Use Types Packs/Day Years Used Date Smoking Tobacco: Never Assessed Sex Assigned at Date Recorded Not on file documented as of this encounter Nursing Notes Melissa Larson RN - 10/06/2015 9:36 AM CDT Medication refilled per refill protocol. documented in this encounter Plan of Treatment Not on filedocumented as of this encounter Visit Diagnoses Not on filedocumented in this encounter Care Teams Clinical Radiologist Relationship Specialty Start Date End Date Jun Benz MD PCP - General 10/12/15 02/20/17 [address] [place] [address] documented as of this encounter
--- OUTSIDE RECORDS SUMMARY | 2022-04-16 08:10 | XMS_ITS | Encounter Summary ---
:1960 Author Organization [facility] Address [address], [place] [address] Care Team Providers Name Role Phone Md THEE Yepez Primary Care Provider Reason for Visit Reason Comments Refill Encounter Details Date Type Department Care Team Description 05/04/2014 Refill Specialty Center 3931 Newton Hernandez MD Refill Nephrology 3931 [facility] [address] [place] [address] [place], [place] [address] [phone] Social History Tobacco Use Types Packs/Day Years Used Date Smoking Tobacco: Never Assessed Sex Assigned at Date Recorded Not on file documented as of this encounter Plan of Treatment Not on filedocumented as of this encounter Visit Diagnoses Not on filedocumented in this encounter Care Teams Chemistry Technical Officer Relationship Specialty Start Date End Date Md Yepez MD PCP - General 12/01/12 10/11/15 [place], [place] [address] documented as of this encounter
--- OUTSIDE RECORDS SUMMARY | 2022-04-16 08:10 | XMS_ITS | Encounter Summary ---
:1960 Author Organization [employer] Address [address], [place] [address] Care Team Providers Name Role Phone DemarJun daniels MD Primary Care Provider Reason for Visit Reason Onset Date Comments Critical Lab Result 02/14/2017 Encounter Details Date Type Department Care Team Description 02/14/2017 Telephone Specialty Center 3931 Newton Hernandez MD Critical Lab Result Nephrology 3931 [place] [address] [place] [address] [place] [phone] (Wo rk) Social History Tobacco Use Types Packs/Day Years Used Date Smoking Tobacco: Never Alcohol Use Standard Drinks/Week Comments No 0 (1 standard drink = 0.6 oz [...] documented as of this encounter Nursing Notes Iliana Horn LPN - 02/15/2017 10:14 AM CDT Please see mychart msg. for further documentation. Iliana Horn LPN - 02/15/2017 9:47 AM CDT Unable to contact pt. at [phone]. Line disconnects after 2 rings. [employer] msg. was sent to pt. Terrence Hernandez MD - 02/15/2017 9:28 AM CDT He needs to get in to see his primary AKIL or one of the primary's partners. He has diabetes. Cele Philip RN - 02/14/2017 10:50 AM CDT Lab calling to report critical lab result of Glucose 465, pt. is not listed as diabetic, was seen this AM for clinic visit. Please advise. documented in this encounter Plan of Treatment Not on filedocumented as of this encounter Visit Diagnoses Not on filedocumented in this encounter Care Teams Audiovisual Aids Technician Relationship Specialty Start Date End Date Jun Benz MD PCP - General 10/12/15 02/20/17 [address] [place] [address] documented as of this encounter
--- OUTSIDE RECORDS SUMMARY | 2022-04-16 08:10 | XMS_ITS | Encounter Summary ---
:1960 Author Organization [facility] Address [address], [place] [address] Care Team Providers Name Role Phone Md THEE Yepez Primary Care Provider Encounter Details Date Type Department Care Team Description 10/14/2014 Lab Visit Specialty Center 3931 Chroni c kidney disease, stage III (moderate); Outpatient Laborator y Vitamin D deficiency 3931 [place], [place] [id number] Social History Tobacco Use Types Packs/Day Years Used Date Smoking Tobacco: Never Assessed Sex Assigned at Date Recorded Not on file documented as of this encounter Plan of Treatment Not on filedocumented as of this encounter Procedures Procedure Name Priority Date/Time Associated Diagnosis Comme nts RENAL FUNCTION Routine 10/14/2014 9:48 AM Chronic kidney Resul ts for this PANEL CDT disease, stage III procedure are in (moderate) (C) the results section. VITAMIN D Routine 10/14/2014 9:48 AM Vitamin D deficiency R esults for this 25-HYDROXY, TOTAL CDT procedure are in the results section. INTACT PTH Routine 10/14/2014 9:48 AM Chronic kidney Results for this CDT disease, stage III procedure are in (moderate) ([facility]) the results section. COMPLETE BLOOD Routine 10/14/2014 9:48 AM Chronic kidney Resul ts for this COUNT-NO DIFF CDT disease, stage III procedur e are in (moderate) ([facility]) the results section. MAGNESIUM Routine 10/14/2014 9:48 AM Chronic kidney Results for this CDT disease, stage III procedure are in (moderate) ([facility]) the results section. documented in this encounter Results Magnesium (10/14/2014 9:48 AM CDT) athologist Signature Magnesium 2.1 1.5 - 2.4 HP CONVERSION mg/dL Specimen Anatomical Collection Method Collection Time Receive d Time (Source) Location / / Volume Laterality 10/14/2014 9:48 AM 5 9:56 CDT AM CDT Narrative HP CONVERSION - 10/14/2014 10:33 AM [place] [address] Terrence Hernandez MD LAB_1 Performing Organization Address [facility] Phon e Number HP CONVERSION Vitamin D 25-Hydroxy, Total (10/14/2014 9:48 AM CDT) athologist Signature Vitamin D 25 Oh 28 20 - 80 HP CONVERSION ng/mL Comment: Deficiency = <20 Adequate ??= 20-29 Preferred = 30-50 Uncertain safety = 51-80 High = >80 Specimen Anatomical Collection Method Collection Time Receive d Time (Source) Location / / Volume Laterality 10/14/2014 9:48 AM 5 9:56 CDT AM CDT Narrative HP CONVERSION - 10/14/2014 12:17 PM [place] [address] Terrence Hernandez MD LAB_1 Performing Organization Address [facility] Phon e Number HP CONVERSION Intact PTH (10/14/2014 9:48 AM CDT) athologist Signature PTH 38 10 - 100 HP CONVERSION pg/mL Specimen Anatomical Collection Method Collection Time Receive d Time (Source) Location / / Volume Laterality 10/14/2014 9:48 AM 5 9:56 CDT AM CDT Narrative HP CONVERSION - 10/14/2014 10:43 AM [place] [address] Terrence Hernandez MD LAB_1 Performing Organization Address [facility] Phon e Number HP CONVERSION Complete Blood Count-No Diff (10/14/2014 9:48 AM CDT) P athologist Signature White Blood Cell 8.3 3.8 - 11.0 HP CONVERSIO N Count k/cmm Red Blood Cell 5.13 4.20 - HP CONVERSION Count 5.90 m/cmm Hemoglobin 15.9 13.4 - HP CONVERSION 17.5 g/dL Hematocrit 44.7 39.0 - HP CONVERSION 51.0 % Mean Corpuscular 87.1 80.0 - HP CONVERSION Volume 100.0 fL RDW 12.8 11.0 - HP CONVERSION 15.0 % Platelet Count 326 140 - 450 HP CONVERSION k/cmm Specimen Anatomical Collection Method Collection Time Receive d Time (Source) Location / / Volume Laterality 10/14/2014 9:48 AM 5 9:56 CDT AM CDT Narrative HP CONVERSION - 10/14/2014 10:01 AM CD[place] [address] Terrence Hernandez MD LAB_1 Performing Organization Address City/State/[facility] Code Phon e Number HP CONVERSION (ABNORMAL) RENAL FUNCTION PANEL (10/14/2014 9:48 AM CDT) Patholo gist Method Time Signature Lab Glucose 150 (H) 60 - 100 HP CONVERSION mg/dL Sodium 139 137 - 147 HP CONVERSION mEq/L Potassium 4.6 3.5 - 5.2 HP CONVERSION mEq/L Chloride 103 98 - 110 HP CONVERSION mEq/L Blood Urea 18 5 - 26 HP CONVERSION Nitrogen mg/dL Albumin 4.4 3.4 - 5.0 HP CONVERSION g/dL Calcium 10.2 8.5 - 10.5 HP CONVERSION mg/dL Phosphorus Serum 2.8 2.5 - 4.5 HP CONVERSION mg/dL Bicarbonate 28 23 - 33 HP CONVERSION mmol/L Creatinine Serum 1.3 0.4 - 1.3 HP CONVERSION mg/dL Est GFR >60 >60 HP CONVERSION Am mL/min/1.7 3m2 Est GFR Non-Afr 56 (L) >60 HP CONVERSION Am mL/min/1.7 3m2 Comment: Normal>60, moderate decrease 30 - 59, se alexia decrease 15 - 29, renal failure <15 mL/min/1.73 m2 NOTE: ??Choose the eGFR result above jamie ropriate for the race of the patient. Specimen Anatomical Collection Method Collection Time Receive d Time (Source) Location / / Volume Laterality 10/14/2014 9:48 AM 5 9:56 CDT AM CDT Narrative HP CONVERSION - 10/14/2014 10:33 AM CDT Performed at [address] [address] Terrence Hernandez MD LAB_1 Performing Organization Address City/State/ZIP Code Phon e Number HP CONVERSION documented in this encounter Visit Diagnoses Diagnosis Chronic kidney disease, stage III (moder ate) ([facility]) Chronic kidney disease, Stage III (moder ate) Vitamin D deficiency ([facility]) Unspecified vitamin D deficiency documented in this encounter Care Teams Croze Machine Operator Relationship Specialty Start Date End Date Md Yepez MD PCP - General 12/01/12 10/11/15 [place] [address] documented as of this encounter
--- OUTSIDE RECORDS SUMMARY | 2022-04-16 08:10 | XMS_ITS | Encounter Summary ---
:1960 Author Organization [employer] Address [address], [place] [address] Care Team Providers Name Role Phone Jun Benz MD Primary Care Provider Reason for Visit Reason Comments Refill Encounter Details Date Type Department Care Team Description 01/09/2017 Refill [facility] 3931 Newton Hernandez MD Refill Nephrology [address] [facility] [address] [place] [address] [place], [place] [address] [phone] Social History Tobacco Use Types Packs/Day Years [...] encounter Nursing Notes Melissa Larson RN - 01/09/2017 8:38 AM CDT Medication refilled per refill protocol. documented in this encounter Plan of Treatment Not on filedocumented as of this encounter Visit Diagnoses Diagnosis Chronic kidney disease, stage III (moder ate) ([facility]) Chronic kidney disease, Stage III (moder ate) documented in this encounter Care Teams Field Pipe Lines Supervisor Relationship Specialty Start Date End Date Jun Benz MD PCP - General 10/12/15 02/20/17 [address] [place] [address] documented as of this encounter
--- OUTSIDE RECORDS SUMMARY | 2022-04-16 08:10 | XMS_ITS | Encounter Summary ---
:1960 Author Organization [facility] Address [address] [address] Care Team Providers Name Role Phone Md THEE Yepez Primary Care Provider Reason for Visit Reason Comments Refill Encounter Details Date Type Department Care Team Description 10/09/2014 Refill Specialty Center 3931 Newton Hernandez MD Refill Nephrology 3931 [facility] [address] [place] [address] [place], [place] [address] [phone] Social History Tobacco Use Types Packs/Day Years Used Date Smoking Tobacco: Never Assessed Sex Assigned at Date Recorded Not on file documented as of this encounter Plan of Treatment Not on filedocumented as of this encounter Visit Diagnoses Not on filedocumented in this encounter Care Teams Learning Disabilities Specialist Relationship Specialty Start Date End Date Md Yepez MD PCP - General 12/01/12 10/11/15 [place], [place] [id number] documented as of this encounter
--- OUTSIDE RECORDS SUMMARY | 2022-04-16 08:10 | XMS_ITS | Encounter Summary ---
:1960 Author Organization [employer] Address [address], [place] [address] Care Team Providers Name Role Phone Jun Benz MD Primary Care Provider Reason for Visit Reason Comments Follow-up Encounter Details Date Type Department Care Team Description 02/14/2017 Office Visit Specialty Center Terrence Hernandez MD Chronic kidney disease (CKD), stage III (moderate) (HRC) (Primary Dx); 39[facility] Ne[facility] [address] [facility] Essential hypertension [address] [facility] [address] [place] [address] [phone] (Wo rk) Social History Tobacco Use Types [...] Sign Reading Time Taken Comments Blood Pressure 136/90 02/14/2017 8:53 AM CDT Pulse 59 02/14/2017 8:53 AM CDT Temperature - - Respiratory Rate - - Oxygen Saturation - - Inhaled Oxygen Concentration - - Weight 95.3 kg (210 lb) 02/14/2017 8:53 AM CDT Height - - Body Mass Index 27.71 01/19/2016 2:23 PM CDT documented in this encounter Progress Notes Terrence Hernandez MD - 02/14/2017 9:00 AM CDT 02/19/2017 Reason for visit: Follow-up regarding chronic kidney disease stage 3, HTN, and related issues. Subjective: Bryce Mosley is a 56 y.o. y.o. male who returns to the clinic for scheduled follow-up. Patient was last seen here on 01/19/2016. Since our last visit, he has been feeling okay He has had pain in his neck. He saw a chiropractor but that didn't help much. He also notes he has some muscle aches. The muscles are weaker per say but just feel sore like he had exercised. His neck feels the same way. He is a little frustrated at his inability to properly describe his symptoms. He also notes a very dry mouth at night. It is bothersome to the point he wakes up to take a sip of water. He notes his BPs are good. No new health related issues. No recent or current SOB, dyspnea. No fever or chills. No GI distress,such as nausea, vomiting, or diarrhea. No dysuria or gross hematuria. Review of Systems: Acomplete ROS was obtained and the pertinent positives are listed in the subjective. All other systems are negative. Past Medical History: Reviewed and updated in [employer]. Pertinent details annotated in the assessment. Patient Active Problem List Diagnosis ??? Essential hypertension (HRC) ??? Hyperlipidemia (HRC) ??? Chronic nonalcoholic liver disease (HRC) ??? Esophageal reflux ??? Chronic kidney disease (CKD), stage III (moderate) (HRC) Outpatient Medications Prior to Visit Medication Sig Dispense Refill ??? ATENolol (TENORMIN) 50 MG tablet TAKE ONE TABLET BY MOUTH ONE TIME DAILY 90 tablet 2 ??? chlorthalidone (HYGROTON) 25 MG tablet TAKE 1 TABLET BY MOUTH DAILY (EVERY 24 HOURS). 90 Tab 0 ??? cholecalciferol (VITAMIN D3) 1000 UNITS tablet Take 1 tablet by mouth daily (every 24 hours). 90tablet 3 ??? losartan (COZAAR) 25 MG tablet Take 1 tablet by mouth daily (every 24 hours). 90 tablet 3 No facility-administered medications prior to visit. Objective: Filed Vitals: 02/14/17 0853 BP: (!) 136/90 Pulse: (!) 59 Weight: 95.3 kg (210 lb) Genl: awake alert comfortable. HEENT: anicteric Heart: regular Lungs: clear Abd: +BS Ext: trace edema right Neuro: non focal. Lab Visit on 02/14/2017 Component Date Value Ref Range Status ??? Glucose Non Fasting 02/14/2017 465* 70 - 180 mg/dL Final ??? Sodium 02/14/2017 135* 136 - 145 mmol/L Final ??? Potassium 02/14/2017 3.9 3.5 - 5.2 mmol/L Final ??? Chloride 02/14/2017 100 98 - 109 mmol/L Final ??? Blood Urea Nitrogen 02/14/2017 22 9 - 26 mg/dL Final ??? Albumin 02/14/2017 3.6 3.4 - 5.0 g/dL Final ??? Calcium 02/14/2017 9.5 8.4 - 10.2 mg/dL Final ??? Phosphorus Serum 02/14/2017 2.9 2.3 - 4.7 mg/dL Final ??? CO2 02/14/2017 24 22 - 31 mmol/L Final ??? Creatinine Serum 02/14/2017 1.16 0.73 - 1.18 mg/dL Final ? ? Est GFR Am 02/14/2017 >60 >60 mL/min/1.73m2 Final ? ? Est GFR Non-Afr Am 02/14/2017 >60 >60 mL/min/1.73m2 Final Comment: Normal>60, moderate decrease 30 - 59, severe decrease 15 - 29, renal failure <15 mL/min/1.73 m2 NOTE: Choose the eGFR result above appropriate for the race of the patient. ??? Microalbumin Urine 02/14/2017 108.8 mg/L Final ??? U Creat Random 02/14/2017 83 mg/dL Final ??? Microalbumin/Creatinine Ratio 02/14/2017 131.1* 0.0 - 30.0 Final ??? PTH 02/14/2017 41 10 - 100 pg/mL Final ??? Vitamin D 25 Oh 02/14/2017 31 20 - 80 ng/mL Final Comment: Deficiency = <20 Adequate = 20-29 Preferred = 30-50 Uncertain safety = 51-80 High = >80 ??? Aldosterone 02/14/2017 6.5 ng/dL Final Comment: INTERPRETIVE INFORMATION: Aldosterone, Serum Reference intervals for age 15 and older: Upright ......... 4.0 - 31.0 ng/dL Supine .......... Less than or equal to 16.0 ng/dL Unspecified ..... Less than or equal to 31.0 ng/dL Normal serum levels of aldosterone are dependent on the sodium intake and whether the patient is upright or supine. High sodium intake will tend to suppress serum aldosterone, whereas low sodium intake will elevate serum aldosterone. The reference intervals for serum aldosterone are based on normal sodium intake. Access complete set of age- and/or gender-specific reference intervals for this test in the [facility] ([employer]). Performed by [facility], [address] [place] [address] www.[employer], Mario Smith MD - Lab. Director ??? Magnesium 02/14/2017 2.4 1.6 - 2.6 mg/dL Final ??? Thyroid Stimulating Hormone 02/14/2017 4.33 0.30 - 4.50 uIU/mL Final Assessment: 56 y.o. male with: 1. Hyperglycemia: New onset diabetes. We contacted him and asked him to see his PMD as soon as possible. 2. CKD 3: Likely due to HTN. Biopsy was inconclusive. 3. HTN: Acceptable control. Plan: 1.check renin/alissa 2. Follow up with PMD regarding BG 3. If alissa/renin ratio is okay will increase losartan and decrease atenolol. documented in this encounter Plan of Treatment Not on filedocumented as of this encounter Results TSH with Free T4 (if TSH Abnormal) (02/14/2017 9:43 AM CDT) athologist Signature Thyroid 4.33 0.30 - PN SOFT Stimulating 4.50 Hormone uIU/mL Specimen Anatomical Collection Method Collection Time Receive d Time (Source) Location / / Volume Laterality 02/14/2017 9:43 AM 7 9:56 CDT AM CDT Narrative PN SOFT - 02/14/2017 10:44 [place] [address] CLIA number [id number] .Critical GLUC result of 465 called to and read back by RANDALL MEDINA RN,.02/14/2017,10:40, by ANGEL Terrence Hernandez MD LAB_1 Performing Organization Address [facility] Phon e Number PN SOFT [address] [place] [address] Magnesium - today (02/14/2017 9:43 AM CDT) athologist Signature Magnesium 2.4 1.6 - 2.6 PN SOFT mg/dL Specimen Anatomical Collection Method Collection Time Receive d Time (Source) Location / / Volume Laterality 02/14/2017 9:43 AM 7 9:56 CDT AM CDT Narrative PN SOFT - 02/14/2017 10:37 AM CDT Performed at [address] [address] CLIA number [id number] Terrence Hernandez MD LAB_1 Performing Organization Address [facility] Phon e Number PN SOFT [address] [place] [address] Renin Activity (02/14/2017 9:43 AM CDT) athologist Signature Renin Activity 2.0 ng/mL/hr PN SOFT Comment: INTERPRETIVE INFORMATION: Renin Activity Adult, Normal sodium diet: ??Supine ................. 0.2-1.6 ng/m L/hr ??Upright ................ 0.5-4.0 ng/m L/hr Children, Normal sodium diet, Supine: ??[place] (1-7 days) ..... 2.0-35.0 ng/ mL/hr ??Cord blood ............. 4.0-32.0 ng/ mL/hr ??1-12 mos ............... 2.4-37.0 ng/ mL/hr ??13 mos-3 yrs ........... 1.7-11.2 ng/ mL/hr ??4-5 yrs ................ 1.0- 6.5 ng/ mL/hr ??6-10 yrs ............... 0.5- 5.9 ng/ mL/hr ??11-15 yrs .............. 0.5- 3.3 ng/ mL/hr Children, normal sodium diet, Upright: ??0-3 yrs ................ Not Availabl e ??4-5 yrs ................ Less than or equal to 15 ng/mL/hr ??6-10 yrs ............... Less than or equal to 17 ng/mL/hr ??11-15 yrs .............. Less than or equal to 16 ng/mL/hr Plasma renin activity measures enzyme ab ility to convert angiotensinogen to angiotensin I and is limited by the availability of angiotensinogen. Plasma renin activity is not an accurate indicator of enzyme acti vity when angiotensinogen is decreased. See Compliance Statement D: www.[employer]. [employer] Performed by [facility], [address] [facility] [place] [address] www.[employer], Mario Smith MD - Lab . Director Specimen Anatomical Collection Method Collection Time Receive d Time (Source) Location / / Volume Laterality 02/14/2017 9:43 AM 7 9:56 CDT AM CDT Narrative PN SOFT - 02/19/2017 9:10 PM CDT Performed at [facility] [address] [place] [address] CLIA number [id number] .Critical GLUC result of 465 called to and read back by RANDALL MEDINA RN,.02/14/2017,10:40, by ANGEL Terrence Hernandez MD LAB_1 Performing Organization Address City/State/ZIP Code Phon e Number PN SOFT [address] [place] [address] Aldosterone Serum (02/14/2017 9:43 AM CDT) athologist Signature Aldosterone 6.5 ng/dL PN SOFT Comment: INTERPRETIVE INFORMATION: Aldosterone, S jay Reference intervals for age 15 and older : Upright ......... ??4.0 - 31.0 ng/dL Supine .......... ??Less than or equal to 16.0 ng/dL Unspecified ..... ??Less than or equal to 31.0 ng/dL Normal serum levels of aldosterone are d ependent on the sodium intake and whether the patient is upright or supine. High sodium intake will tend to suppress serum aldosterone, whereas low sodium intake will elevate s jay aldosterone. The reference intervals for serum aldost erone are based on normal sodium intake. Access complete set of age- and/or gende r-specific reference intervals for this test in the [facility] ([employer]). Performed by [facility], [address] [place] [address] www.[employer], Mario Smith MD - Lab . Director Specimen Anatomical Collection Method Collection Time Receive d Time (Source) Location / / Volume Laterality 02/14/2017 9:43 AM 7 9:56 CDT AM CDT Narrative PN SOFT - 02/15/2017 11:33 PM CDT Performed at [facility] [address] [place] [address] CLIA number [id number] .Critical GLUC result of 465 called to and read back by RANDALL MEDINA RN,.02/14/2017,10:40, by ANGEL Terrence Hernandez MD LAB_1 Performing Organization Address [facility] Phon e Number PN SOFT [address] [place] [address] Vitamin D (In house) - today (02/14/2017 9:43 AM CDT) athologist Signature Vitamin D 25 Oh 31 20 - 80 PN SOFT ng/mL Comment: Deficiency = <20 Adequate ??= 20-29 Preferred = 30-50 Uncertain safety = 51-80 High = >80 Specimen Anatomical Collection Method Collection Time Receive d Time (Source) Location / / Volume Laterality 02/14/2017 9:43 AM 7 9:56 CDT AM CDT Narrative PN SOFT - 02/14/2017 4:57 PM CDT Performed at [address] [address] CLIA number [id number] .Critical GLUC result of 465 called to and read back by RANDALL MEDINA RN,.02/14/2017,10:40, by [facility] Terrence Hernnadez MD LAB_1 Performing Organization Address [facility] Phon e Number PN SOFT [address] [place] [address] PTH - Parathyroid Hormone Intact - today (02/14/2017 9:43 AM CDT) athologist Signature PTH 41 10 - 100 PN SOFT pg/mL Specimen Anatomical Collection Method Collection Time Receive d Time (Source) Location / / Volume Laterality 02/14/2017 9:43 AM 7 9:56 CDT AM CDT Narrative PN SOFT - 02/14/2017 11:03 AM CDT Performed at [address] [address] CLIA number [id number] .Critical GLUC result of 465 called to and read back by RANDALL MEDINA RN,.02/14/2017,10:40, by [facility] Terrence Hernandez MD LAB_1 Performing Organization Address [facility] Phon e Number PN SOFT [address] [place] [address] (ABNORMAL) Renal Function Panel - today (02/14/2017 9:43 AM CDT) [facility] Glucose Non 465 (CH) 70 - 180 PN SOFT Fasting mg/dL Sodium 135 (L) 136 - 145 PN SOFT mmol/L Potassium 3.9 3.5 - 5.2 PN SOFT mmol/L Chloride 100 98 - 109 PN SOFT mmol/L Blood Urea 22 9 - 26 PN SOFT Nitrogen mg/dL Albumin 3.6 3.4 - 5.0 PN SOFT g/dL Calcium 9.5 8.4 - 10.2 PN SOFT mg/dL Phosphorus 2.9 2.3 - 4.7 PN SOFT Serum mg/dL CO2 24 22 - 31 PN SOFT mmol/L Creatinine 1.16 0.73 - PN SOFT Serum 1.18 mg/dL [...] Time (Source) Location / / Volume Laterality 02/14/2017 9:43 AM 7 9:56 CDT AM CDT Narrative PN SOFT - 02/14/2017 10:37 AM CDT Performed at [facility], [address] [place] [address] CLIA number [id number] .Critical GLUC result of 465 called to and read back by RANDALL MEDINA RN,.02/14/2017,10:40, by [facility] Terrence Hernandez MD LAB_1 Performing Organization Address City/State/ZIP Code Phon e Number PN SOFT [address] [place] [address] (ABNORMAL) Microalbumin Urine Random - today (02/14/2017 9:37 AM CDT) [facility] Method Time Signature Microalbumin 108.8 mg/L PN SOFT Urine U Creat Random 83 mg/dL PN SOFT Microalbumin/Crea 131.1 (H) 0.0 - PN SOFT tinine Ratio 30.0 Specimen Anatomical Collection Method Collection Time Receive d Time (Source) Location / / Volume Laterality Urine specimen 02/14/2017 9:37 AM 017 9:55 (specimen) CDT AM CDT Narrative PN SOFT - 02/14/2017 10:51 AM CDT Performed at [facility], [address] [place] [address] CLIA number [id number] .Critical GLUC result of 465 called to and read back by RANDALL MEDINA RN,.02/14/2017,10:40, by [facility] Terrence Hernandez MD LAB_1 Performing Organization Address City/State/ZIP Code Phon e Number PN SOFT [address] [place] [address] documented in this encounter Visit Diagnoses Diagnosis Chronic kidney disease (CKD), stage III (moderate) (HRC) - Primary Chronic kidney disease, Stage III (moder ate) Essential hypertension (HRC) Unspecified essential hypertension Chronic kidney disease (CKD), stage III (moderate) (HRC) Chronic kidney disease, Stage III (moder ate) documented in this encounter Care Teams Upsetting Machine Operator Relationship Specialty Start Date End Date Jun Benz MD PCP - General 10/12/15 02/20/17 [address] [place] [address] documented as of this encounter
--- OUTSIDE RECORDS SUMMARY | 2022-04-16 08:10 | XMS_ITS | Encounter Summary ---
:1960 Author Organization [employer] Address [address] [place] [address] Care Team Providers Name Role Phone Clarissa Grimes MD Primary Care Provider Reason for Visit Reason Comments Follow-up Encounter Details Date Type Department Care Team Description 01/19/2016 Office Visit Specialty Center Terrence Hernandez MD Chronic kidney disease, stage III (moder ate) (HRC) (Primary Dx); [address] Nephrology [address] [place] Abnormal AST and ALT; [address] [facility] [address] Postviral fatigue syndrome; [facility]; [id number] Need for hepatitis A and B vaccination [phone] (Wo rk) Social History Tobacco Use Types Packs/Day Years Used Date Smoking Tobacco: Never Assessed Sex Assigned at Date Recorded Not on file documented as of this encounter Last Filed Vital Signs Vital Sign Reading Time Taken Comments Blood Pressure 130/88 01/19/2016 2:23 PM CDT Pulse 67 01/19/2016 2:23 PM CDT Temperature - - Respiratory Rate - - Oxygen Saturation - - Inhaled Oxygen Concentration - - Weight 98.2 kg (216 lb 6.4 oz) 01/19/2016 2:23 PM CDT Height 185.4 cm (6' 1) 01/19/2016 2:23 PM CDT Body Mass Index 28.55 01/19/2016 2:23 PM CDT documented in this encounter Progress Notes Terrence Hernandez MD - 01/26/2016 8:28 AM CDT Progress Notes signed by Terrence Hernandez MD at 02/04/16 1430 Author: Terrence Hernandez MD Service: (none) Author Type: Physician Filed: 02/04/16 1430 Note Time: 01/26/16 1028 Status: Signed Wash Tank Tender: Terrence Hernandez MD (Physician) NAME: JOSH MOSLEY MR#: [id number] CSN: [id number] AUTHENTICATING CLINICIAN: Terrence Hernandez MD CONFIRM #: [id number] LOC: 236 CLINIC PROGRESS NOTE DATE OF VISIT: 01/19/2016 : 1960 SUBJECTIVE: Mr. Mosley is 55-year-old gentleman who returns to clinic today for followup of his stage 3 chronic kidney disease. This is likely due to hypertension. Overall, the patient states he is feeling okay now. Right now he actually feels great. He did have an episode in early spring. He had severe cramps. The leg cramps waxed and wane. He had some weakness. He felt very poorly. He went to see his primary inlate September with these complaints. He had some mildly elevated LFTs. He had a mildly elevated TSH. The patient after that visit went to [place]. After he came back from [place], he says he has felt great and has felt great ever since. The patient denies any fevers or chills associated with that, but he did have this prolonged period of feeling poorly. Again, this has been resolved since early October, hasnot returned. Hepatitis serologies were not checked. 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 He does occasionally have to get in the field as well. REVIEW OF SYSTEMS: The remainder of his complete review of systems is otherwise unremarkable. MEDICATIONS: Reviewed and are per the electronic medical record. His antihypertensives currently include: 1. Atenolol 50 mg daily. 2. Chlorthalidone 25 mg daily. 3. Losartan 25 mg daily. OBJECTIVE: VITAL SIGNS: Blood pressure 130/88, heart rate 67, weight 216 pounds. GENERAL: This is a pleasant gentleman in no acute distress. HEENT: Sclerae anicteric. Oropharynx clear. HEART: Regular. LUNGS: Clear. ABDOMEN: Soft, nontender with positive bowel sounds. EXTREMITIES: Lower extremities show no edema. LABORATORY DATA: Labs ordered by me today show a sodium 137, potassium 3.1, chloride 108, BUN 21, creatinine 1.4 slightly higher than his last one but really at baseline, phosphorus 3.9, calcium 9.6. Microalbumin to creatinine ratio is 57. TSH is slightly elevated at 5.1, albumin is 4.2. Hepatitis A, B, and C are all n onreactive. I did order hepatitis vaccinations for him today. IMPRESSION: This is a 55-year-old gentleman with stage 3 chronic kidney disease, hypertension, and an episode ofprolonged cramping weakness, which I suspect is viral and transaminitis. PLAN: 1. Transaminitis: I did not repeat this today. I do suspect that the patient had a viral syndrome and that causes mild transaminitis. Likely need to follow this. Regardless because of his job, I did recommend that he get a hepatitis B vaccination. He is fully admits that his worker's need to get this so it makes sense that he would get it as well. In addition, he does travel to [place] yearlyso hepatitis A vaccination makes sense and I ordered this as well. 2. Chronic kidney disease stage 3: This is likely due to hypertension. The patient's blood pressure is very well controlled. Overall, he is doing fine. He has mild microalbuminuria, but is on losartan.I would not increase this at this point. 3. Hypokalemia: This is mild. I encouraged him to increase the potassium in his diet. 4. Hypertension: This is acceptably controlled. No changes on this today. 5. Hyperthyroidism: He has a mildly elevated TSH with normal free T4. I did contact his primary, , to see how we need to follow this. I do not know if this yet warrants thyroid replacement. Please note that 15 minutes out of this 25 minute visit was spent in education, counseling, and reassurance. CC: [place] [address] [place] [address] AET:MEDQ C: CONFIRM #: [id number] documented in this encounter Plan of Treatment Not on filedocumented as of this encounter Visit Diagnoses Diagnosis Chronic kidney disease, stage III (moder ate) (HRC) - Primary Chronic kidney disease, Stage III (moder ate) Abnormal AST and ALT Nonspecific elevation of levels of trans aminase or lactic acid dehydrogenase (LDH) Postviral fatigue syndrome Chronic fatigue syndrome Preventative health care Routine general medical examination at a health care facility Need for hepatitis A and B vaccination Need for prophylactic vaccination and in oculation against viral hepatitis documented in this encounter Care Teams Stave Saw Operator Relationship Specialty Start Date End Date Clarissa Grimes MD PCP - General 10/12/15 02/20/17 [address] [place] [address] documented as of this encounter
--- OUTSIDE RECORDS SUMMARY | 2022-04-16 08:10 | XMS_ITS | Encounter Summary ---
:1960 Author Organization [employer] Address [address], [place] [address] Care Team Providers Name Role Phone Jun Benz MD Primary Care Provider Reason for Visit Reason Comments Spasms Encounter Details Date Type Department Care Team Description 10/13/2015 Office Visit [facility] Jun Benz, Efren a nd spasm (Primary Dx); Medicine Screening for colon cancer; [address] Need [place] [address] [phone] Social History Tobacco Use Types Packs/Day Years Used Date Smoking Tobacco: Never Assessed Sex Assigned at Date Recorded Not on file documented as of this encounter Last Filed Vital Signs Vital Sign Reading Time Taken Comments Blood Pressure 132/88 10/13/2015 3:07 PM CDT Pulse 76 10/13/2015 3:07 PM CDT Temperature - - Respiratory Rate - - Oxygen Saturation - - Inhaled Oxygen Concentration - - Weight 98.1 kg (216 lb 4.8 oz) 10/13/2015 3:07 PM CDT Height 185.4 cm (6' 1) 10/13/2015 3:07 PM CDT Body Mass Index 28.54 10/13/2015 3:07 PM CDT documented in this encounter Progress Notes Jun Benz MD - 10/17/2015 3:17 PM CDT Subjective Bryce Mosley is a 55 y.o. male who presents for cramping and muscle spasm. On going for quite a while, but much worse over the past 2 weeks. Pain occurs randomly, happens a lot in LE, but also several muscle groups in the UE. Pain will occasionally keep him up at night. No new OTC medications. No fevers, rash or hx of problems like this in the past. Home stretching has not been helpful. Outpatient Prescriptions Prior to Visit Medication Sig ??? atenolol (TENORMIN) 50 mg tablet TAKE ONE TABLET BY MOUTH ONE TIME DAILY ??? chlorthalidone (HYGROTEN) 25 mg tablet TAKE ONE TABLET BY MOUTH ONE TIME DAILY (EVERY 24 HOURS) ??? cholecalciferol (VITAMIN D3) 1,000 unit tablet Take 1 tablet by mouth daily (every 24 hours). ??? [DISCONTINUED] ciprofloxacin HCl (CIPRO) 250 mg tablet Take 250 mg by mouth 2 times daily. ??? losartan (COZAAR) 25 mg tablet TAKE ONE TABLET BY MOUTH ONE TIME DAILY (EVERY 24 HOURS) ??? [DISCONTINUED] potassium chloride SA (KLOR-CON M10) 10 mEq ER tablet Take 1 tablet by mouth 2 times daily. No facility-administered medications prior to visit. Allergies Allergen Reactions ??? Codeine LW Reaction: Nausea ??? Lisinopril Throat Irritation ??? Other LW Other1: -NKA ??? Review Contrast Media LW CM1: >>> NO CONTRAST ADVERSE REACTION <<< Reaction : No past medical history on file. Past Surgical History Procedure Laterality Date ??? Vascular surgery History Substance Use Topics ??? Smoking status: Never Smoker ??? Smokeless tobacco: Not on file ??? Alcohol Use: No Comment: Alcoholic Drinks/day: Amount:1-2 drinks; Freq:=< Monthly; No family history on file. Review of Systems Pertinent items are noted in HPI. Objective BP 132/88 mmHg Pulse 76 Ht 6' 1 (1.854 m) Wt 216 lb 4.8 oz (98.113 kg) BMI 28.54 kg/m2 ENT: TM clear, throat clear, neck without adenopathy. CV: RRR Lungs; Clear Skin; no rash Eye; No redness or injection. Assessment/Plan ICD-10-CM ICD-9-CM 1. Cramp and spasm R25.2 781.0 Basic Metabolic Panel Complete Blood Count W/Diff Sedimentation Rate CPK Hepatic Function Panel TSH And Free T4 (FRT4 If TSH Abnorm) 2. Screening for colon cancer Z12.11 V76.51 Colon Cancer Screen/Adults/FIT 3. Need for tetanus booster Z23 V03.7 Tdap (BOOSTRIX) Unclear etiology, will start with some basic labs, plan to follow up with results. Jun Benz MD 3:16 PM 10/17/2015 documented in this encounter Plan of Treatment Not on filedocumented as of this encounter Visit Diagnoses Diagnosis Cramp and spasm - Primary Screening for colon cancer Special screening for malignant neoplasm s, colon Need for tetanus booster Need for prophylactic vaccination with t etanus toxoid alone documented in this encounter Care Teams Seam Closer Relationship Specialty Start Date End Date Jun Benz MD PCP - General 10/12/15 02/20/17 [address] [place] [address] documented as of this encounter
--- OUTSIDE RECORDS SUMMARY | 2022-04-16 08:10 | XMS_ITS | Encounter Summary ---
:1960 Author Organization [employer] Address [address], [place] [address] Care Team Providers Name Role Phone Jun Benz MD Primary Care Provider Reason for Visit Reason Comments Refill Encounter Details Date Type Department Care Team Description 01/01/2017 Refill [facility] 3931 Newton Hernandez MD Refill Nephrology 3931 [facility] [address] [place] [address] [place], [place] [address] [phone] Social History Tobacco Use Types Packs/Day Years [...] documented as of this encounter Nursing Notes Cele Philip RN - 01/01/2017 1:44 PM CDT Medication refilled per protocol. documented in this encounter Plan of Treatment Not on filedocumented as of this encounter Visit Diagnoses Diagnosis Chronic kidney disease, stage III (moder ate) ([facility]) Chronic kidney disease, Stage III (moder ate) documented in this encounter Care Teams Portal Architect Relationship Specialty Start Date End Date Jun Benz MD PCP - General 10/12/15 02/20/17 [address] [place] [address] documented as of this encounter
--- OUTSIDE RECORDS SUMMARY | 2022-04-16 08:10 | XMS_ITS | Encounter Summary ---
:[address] [facility] Address [address], [place] [address] Care Team Providers Name Role Phone Jun Benz MD Primary Care Provider Encounter Details Date Type Department Care Team Description 10/23/2015 Lab Visit [facility] 3850 Screening for colon cancer Laboratory [address] [place] [address] Social History Tobacco Use Types Packs/Day Years Used Date Smoking Tobacco: Never Assessed Sex Assigned at Date Recorded Not on file documented as of this encounter Progress Notes Jun Benz MD - 10/26/2015 12:12 PM CDT Quick Note: mychart MOTIVE HARDWARE ENGINEER documented in this encounter Miscellaneous Notes Miscellaneous - 08/29/2016 7:57 PM CSTNotes Recorded by Jun Benz MD on 10/26/2015 at 12:12 PMmychart MOTIVE HARDWARE ENGINEER documented in this encounter Plan of Treatment Not on filedocumented as of this encounter Procedures Procedure Name Priority Date/Time Associated Comments Diagnosis FIT COLLECTION KIT Routine 10/23/2015 10:00 AM Screening for c olon Results for this PREP CDT cancer procedure are i n the results section. documented in this encounter Results FIT Collection Kit Prep (10/23/2015 10:00 AM CDT) Analysis Performed At [facility] Time Signature Occult Blood Negative Negative HP CONVERSION Result Specimen Anatomical Collection Method Collection Time Receive d Time (Source) Location / / Volume Laterality 10/23/2015 10:00 10/23/2015 AM CDT 12:50 PM CDT Narrative HP CONVERSION - 10/26/2015 11:29 AM CDT Performed at [facility], [address] [place] [address] CLIA number [id number] Transcriptions 08/29/2016 7:57 PM CSTNotes Recorded by Jun Benz MD on 10/26/2015 at 12:12 PMmychart Jun Benz MD LAB_1 Performing Organization Address City/State/ZIP Code Phon e Number HP CONVERSION documented in this encounter Visit Diagnoses Diagnosis Screening for colon cancer Special screening for malignant neoplasm s, colon documented in this encounter Care Teams Junior Copywriter Relationship Specialty Start Date End Date Jun Benz MD PCP - General 10/12/15 02/20/17 [address] [place] [address] documented as of this encounter
--- OUTSIDE RECORDS SUMMARY | 2022-04-16 08:10 | XMS_ITS | Encounter Summary ---
:1960 Author Organization [email or web address] Address [address], [place] [address] Care Team Providers Name Role Phone Jun Benz MD Primary Care Provider Reason for Visit Reason Comments Refill Encounter Details Date Type Department Care Team Description 02/05/2016 Refill [facility] 3931 Newton Hernandez MD Refill Nephrology 3931 [facility] [address] [place] [address] [place], [place] [address] [phone] Social History Tobacco Use Types Packs/Day Years Used Date Smoking Tobacco: Never Assessed Sex Assigned at Date Recorded Not on file documented as of this encounter Nursing Notes Cele Philip RN - 02/06/2016 10:44 AM CDT Please verify if pt. is to continue, sign if in agreement. Source Rx d/c'd. documented in this encounter Plan of Treatment Not on filedocumented as of this encounter Visit Diagnoses Not on filedocumented in this encounter Care Teams Air Table Operator Relationship Specialty Start Date End Date Jun Benz MD PCP - General 10/12/15 02/20/17 [address] [place] [address] documented as of this encounter
--- OUTSIDE RECORDS SUMMARY | 2022-04-16 08:10 | XMS_ITS | Encounter Summary ---
:1960 Author Organization [facility] Address [address], [place] [address] Care Team Providers Name Role Phone Md THEE Yepez Primary Care Provider Reason for Visit Reason Comments Refill Encounter Details Date Type Department Care Team Description 10/15/2014 Refill [facility]ty [facility] 3931 Newton Hernandez MD Refill Nephrology 3931 [facility] [address] [place] [address] [place], [place] [address] [phone] Social History Tobacco Use Types Packs/Day Years Used Date Smoking Tobacco: Never Assessed Sex Assigned at Date Recorded Not on file documented as of this encounter Plan of Treatment Not on filedocumented as of this encounter Visit Diagnoses Not on filedocumented in this encounter Care Teams Senior Producer Relationship Specialty Start Date End Date Md Yepez MD PCP - General 12/01/12 10/11/15 [place], [place] [address] documented as of this encounter
--- OUTSIDE RECORDS SUMMARY | 2022-04-16 08:10 | XMS_ITS | Encounter Summary ---
:1960 Author Organization [employer] Address [address] [address] Care Team Providers Name Role Phone Md THEE Yepez Primary Care Provider Encounter Details Date Type Department Care Team Description 09/21/2013 Lab Visit Specialty Center 3931 Unspec ified essential hypertension; Outpatient Laborator y Chronic kidney disease (CKD) , stage III (moderate) [address] [place], [place] [address] Social History Tobacco Use Types Packs/Day Years Used Date Smoking Tobacco: Never Assessed Sex Assigned at Date Recorded Not on file documented as of this encounter Plan of Treatment Not on filedocumented as of this encounter Procedures Procedure Name Priority Date/Time Associated Diagnosis Comme nts RENAL FUNCTION Routine 09/21/2013 4:01 PM Unspecified essentia l Results for this PANEL COLD PRESS LOADER hypertension (HR C) procedure are in Chronic kidney the results disease (CKD), stage section . III (moderate) (HRC) documented in this encounter Results (ABNORMAL) RENAL FUNCTION PANEL (09/21/2013 4:01 PM COLD PRESS LOADER) [facility] gist Method Time Signature Lab Glucose 114 (H) 60 - 100 HP CONVERSION mg/dL Sodium 141 137 - 147 HP CONVERSION Potassium 3.9 3.5 - 5.2 HP CONVERSION Chloride 104 98 - 110 HP CONVERSION Blood Urea 20 5 - 26 HP CONVERSION Nitrogen mg/dL Albumin 4.5 3.4 - 5.0 HP CONVERSION g/dL Calcium 9.8 8.5 - 10.5 HP CONVERSION mg/dL Phosphorus Serum 3.2 2.5 - 4.5 HP CONVERSION mg/dL Bicarbonate 31 23 - 33 HP CONVERSION mmol/L Creatinine Serum 1.4 (H) 0.4 - 1.3 HP CONVERSION mg/dL Est GFR >60 >60 HP CONVERSION Am Est GFR Non-Afr 51 (L) >60 HP CONVERSION Am Comment: Normal>60, moderate decrease 30 - 59, se alexia decrease 15 - 29, renal failure <15 mL/min/1.73 m2 NOTE: ??Choose the eGFR result above jamie ropriate for the race of the patient. Specimen Anatomical Collection Method Collection Time Receive d Time (Source) Location / / Volume Laterality 09/21/2013 4:01 PM 4 4:14 COLD PRESS LOADER PM COLD PRESS LOADER Terrence Hernandez MD LAB_1 Performing Organization Address City/State/ZIP Code Phon e Number HP CONVERSION documented in this encounter Visit Diagnoses Diagnosis Unspecified essential hypertension ([facility]) Unspecified essential hypertension Chronic kidney disease (CKD), stage III (moderate) ([facility]) Chronic kidney disease, Stage III (moder ate) documented in this encounter Care Teams Meter Tester Relationship Specialty Start Date End Date Md Yepez MD PCP - General 12/01/12 10/11/15 [place] [address] documented as of this encounter
--- OUTSIDE RECORDS SUMMARY | 2022-04-16 08:10 | XMS_ITS | Encounter Summary ---
:1960 Author Organization [facility] Address [address], [place] [address] Care Team Providers Name Role Phone Md THEE Yepez Primary Care Provider Reason for Visit Reason Comments Refill Encounter Details Date Type Department Care Team Description 10/15/2014 Refill [facility]ty Center 3931 Newton Hernandez MD Refill Nephrology 3931 [facility] [address] [place] [address] [place], [place] [address] [phone] Social History Tobacco Use Types Packs/Day Years Used Date Smoking Tobacco: Never Assessed Sex Assigned at Date Recorded Not on file documented as of this encounter Plan of Treatment Not on filedocumented as of this encounter Visit Diagnoses Not on filedocumented in this encounter Care Teams Curtain Supervisor Relationship Specialty Start Date End Date Md Yepez MD PCP - General 12/01/12 10/11/15 [place], [place] [id number] documented as of this encounter
--- OUTSIDE RECORDS SUMMARY | 2022-04-16 08:10 | XMS_ITS | Encounter Summary ---
:1960 Author Organization [employer] Address [address] [place] [address] Care Team Providers Name Role Phone Jun Benz MD Primary Care Provider Encounter Details Date Type Department Care Team Description 05/11/2016 Immunization [facility] Need for prophylactic [address] [place] [address] inoculation against [phone] influenza (Prim yadira Dx) Social History Tobacco Use Types Packs/Day [...] prophylactic vaccination and in oculation against influenza - Primary documented in this encounter Care Teams Electric Motor Assembler And Tester Relationship Specialty Start Date End Date Jun Benz MD PCP - General 10/12/15 02/20/[address] [place] [address] documented as of this encounter
--- OUTSIDE RECORDS SUMMARY | 2022-04-16 08:10 | XMS_ITS | Encounter Summary ---
:1960 Author Organization [facility] Address [address] [address] Care Team Providers Name Role Phone Md THEE Yepez Primary Care Provider Reason for Visit Reason Comments Refill Encounter Details Date Type Department Care Team Description 07/17/2014 Refill Specialty Center 3931 Newton Hernandez MD Refill Nephrology 3931 [facility] [address] [place] [address] [place], [place] [address] [phone] Social History Tobacco Use Types Packs/Day Years Used Date Smoking Tobacco: Never Assessed Sex Assigned at Date Recorded Not on file documented as of this encounter Plan of Treatment Not on filedocumented as of this encounter Visit Diagnoses Not on filedocumented in this encounter Care Teams Director Heart Relationship Specialty Start Date End Date Md Yepez MD PCP - General 12/01/12 10/11/15 [place], [place] [id number] documented as of this encounter
--- OUTSIDE RECORDS SUMMARY | 2022-04-16 08:10 | XMS_ITS | Encounter Summary ---
:1960 Author Organization [employer] Address [address] [place] [address] Care Team Providers Name Role Phone Md THEE Yepez Primary Care Provider Encounter Details Date Type Department Care Team Description 03/31/2014 Lab Visit [facility] Unspecified essential hypert ension; [address] Chronic kidney disease (CKD) , stage III (moderate) [place] [address] Social History Tobacco Use Types Packs/Day Years Used Date Smoking Tobacco: Never Assessed Sex Assigned at Date Recorded Not on file documented as of this encounter Plan of Treatment Not on filedocumented as of this encounter Procedures Procedure Name Priority Date/Time Associated Diagnosis Comme nts ALBUMIN/CREAT RATIO Routine 03/31/2014 2:07 PM Unspecified Re sults for this CDT essential procedure are i n hypertension (HR C) the results Chronic kidney section. disease (CKD), stage III (moderate) ([facility]) RENAL FUNCTION PANEL Routine 03/31/2014 1:07 PM Unspecified R esults for this CDT essential procedure are i n hypertension (HR C) the results Chronic kidney section. disease (CKD), stage III (moderate) ([facility]) COMPLETE BLOOD Routine 03/31/2014 1:07 PM Unspecified Results for this COUNT-W/DIFF CDT essential procedure are i n hypertension (HR C) the results Chronic kidney section. disease (CKD), stage III (moderate) ([facility]) DIFFERENTIAL Routine 03/31/2014 1:07 PM Results f or this CDT procedure are i n the results section. documented in this encounter Results Microalb/Creat Ratio (03/31/2014 2:07 PM CDT) Analysis Performed At Patho logist Time Signature Microalbumin 7.8 mg/L HP CONVERSION Urine U Creat Random 113 mg/dL HP CONVERSION Microalbumin/Crea 6.9 0.0 - 30.0 HP CONVERSI ON tinine Ratio Specimen Anatomical Collection Method Collection Time Receive d Time (Source) Location / / Volume Laterality 03/31/2014 2:07 PM 4 3:44 CDT PM CDT Terrence Hernandez MD LAB_1 Performing Organization Address City/[facility]/ZIP Code Phon e Number HP CONVERSION Differential (03/31/2014 1:07 PM CDT) athologist Signature Absolute 5.6 1.8 - 8.0 HP CONVERSION Neutrophils Absolute 3.0 1.1 - 4.0 HP CONVERSION Lymphocytes Absolute 0.8 0.2 - 0.8 HP CONVERSION Monocytes Absolute 0.2 0.0 - 0.5 HP CONVERSION Eosinophils Absolute 0.0 0.0 - 0.2 HP CONVERSION Basophils Specimen Anatomical Collection Method Collection Time Receive d Time (Source) Location / / Volume Laterality 03/31/2014 1:07 PM 4 1:07 CDT PM CDT Narrative HP CONVERSION - 03/31/2014 1:19 PM CDT Performed at [facility], [address] [place] [address] Terrence Hernandez MD LAB_1 Performing Organization Address City/[facility] Phon e Number HP CONVERSION Complete Blood Count W/Diff (03/31/2014 1:07 PM CDT) athologist Signature White Blood Cell 9.7 3.8 - 11.0 HP CONVERSIO N Count Red Blood Cell 5.32 4.20 - HP CONVERSION Count 5.90 Hemoglobin 16.4 13.4 - HP CONVERSION 17.5 g/dL Hematocrit 44.2 39.0 - HP CONVERSION 51.0 % Mean Corpuscular 83.1 80.0 - HP CONVERSION Volume 100.0 fL RDW 13.2 11.0 - HP CONVERSION 15.0 % Platelet Count 327 140 - 450 HP CONVERSION Specimen Anatomical Collection Method Collection Time Receive d Time (Source) Location / / Volume Laterality 03/31/2014 1:07 PM 4 1:07 CDT PM CDT Narrative HP CONVERSION - 03/31/2014 1:19 PM CDT Performed at [facility], [address] [place] [address] Terrence Hernandez MD LAB_1 Performing Organization Address [facility] Phon e Number HP CONVERSION (ABNORMAL) RENAL FUNCTION PANEL (03/31/2014 1:07 PM CDT) [facility] Method Time Signature Lab Glucose 106 (H) 60 - 100 HP CONVERSION mg/dL Sodium 138 137 - 147 HP CONVERSION Potassium 3.5 3.5 - 5.2 HP CONVERSION Chloride 99 98 - 110 HP CONVERSION Blood Urea 28 (H) 5 - 26 HP CONVERSION Nitrogen mg/dL Albumin 4.8 3.4 - 5.0 HP CONVERSION g/dL Calcium 9.9 8.5 - 10.5 HP CONVERSION mg/dL Phosphorus Serum 4.0 2.5 - 4.5 HP CONVERSION mg/dL Bicarbonate 30 23 - 33 HP CONVERSION mmol/L Creatinine Serum 1.4 (H) 0.4 - 1.3 HP CONVERSION mg/dL Est GFR >60 >60 HP CONVERSION Am Est GFR Non-Afr 53 (L) >60 HP CONVERSION Am Comment: Normal>60, moderate decrease 30 - 59, se alexia decrease 15 - 29, renal failure <15 mL/min/1.73 m2 NOTE: ??Choose the eGFR result above jamie ropriate for the race of the patient. Specimen Anatomical Collection Method Collection Time Receive d Time (Source) Location / / Volume Laterality 03/31/2014 1:07 PM 4 2:36 CDT PM CDT Narrative HP CONVERSION - 03/31/2014 6:12 PM CDT Performed at [facility], [address] [place] [address] Terrence Hernandez MD LAB_1 Performing Organization Address [facility] Phon e Number HP CONVERSION documented in this encounter Visit Diagnoses Diagnosis Unspecified essential hypertension ([facility]) Unspecified essential hypertension Chronic kidney disease (CKD), stage III (moderate) ([facility]) Chronic kidney disease, Stage III (moder ate) documented in this encounter Care Teams Poultry Slaughterer Relationship Specialty Start Date End Date Md Yepez MD PCP - General 12/01/12 10/11/15 [place] [address] documented as of this encounter
--- OUTSIDE RECORDS SUMMARY | 2022-04-16 08:10 | XMS_ITS | Encounter Summary ---
:1960 Author Organization [facility] Address [address] [address] Care Team Providers Name Role Phone DemarJun MD Primary Care Provider Encounter Details Date Type Department Care Team Description 01/19/2016 Lab Visit [facility] 3931 Chroni c kidney disease, stage III (moderate) ([facility]); Outpatient Laborator y Abnormal AST and ALT; 3931 [facility] Postviral fatigue syndrome [place], [place] [id number] Social History Tobacco Use Types Packs/Day Years Used Date Smoking Tobacco: Never Assessed Sex Assigned at Date Recorded Not on file documented as of this encounter Plan of Treatment Not on filedocumented as of this encounter Procedures Procedure Name Priority Date/Time Associated Comments Diagnosis RENAL FUNCTION PANEL Routine 01/19/2016 3:08 PM Chronic kidney Results for this CDT disease, stage III procedure are in (moderate) (HRC) the results section. HEPATITIS B MICHELLE, Routine 01/19/2016 3:08 PM Resul ts for this QUANTITATIVE CDT procedure are i n the results section. TSH AND FREE T4 (FRT4 Routine 01/19/2016 3:08 PM Postviral fat igue Results for this IF TSH ABNORM) CDT syndrome procedure are in the results section. HEP B SURFACE Routine 01/19/2016 3:08 PM Abnormal AST and Resu lts for this ANTIGEN, NO REFLEX CDT ALT procedure are in the results section. FREE T4 Routine 01/19/2016 3:08 PM Results f or this CDT procedure are i n the results section. HEPATITIS A AB, TOTAL Routine 01/19/2016 3:08 PM Abnormal AST and Results for this CDT ALT procedure are i n the results section. ALBUMIN/CREAT RATIO Routine 01/19/2016 3:08 PM Chronic kidney Results for this CDT disease, stage III procedure are in (moderate) (HRC) the results section. HEPATITIS C ANTIBODY, Routine 01/19/2016 3:08 PM Abnormal AST and Results for this WITH REFLEX CDT ALT procedure are i n the results section. documented in this encounter Results Free T4 (01/19/2016 3:08 PM CDT) athologist Signature Thyroxine, Free 1.3 0.7 - 1.5 HP CONVERSION ng/dL Specimen Anatomical Collection Method Collection Time Receive d Time (Source) Location / / Volume Laterality 01/19/2016 3:08 PM 6 3:23 CDT PM CDT Narrative HP CONVERSION - 01/19/2016 7:06 PM CDT [place]formed [place] [address] CLIA number [id number] Terrence Hernandez MD LAB_1 Performing Organization Address [facility] Phon e Number HP CONVERSION HEPATITIS B MICHELLE, QUANTITATIVE (01/19/2016 3:08 PM CDT) [facility] Method Time Signature Hep B Surf Ab Nonreactive Non-React HP CONVERSION jessica Hep B Ab <3 mIU/mL HP CONVERSION Quant Specimen Anatomical Collection Method Collection Time Receive d Time (Source) Location / / Volume Laterality 01/19/2016 3:08 PM 6 3:23 CDT PM CDT Narrative HP CONVERSION - 01/19/2016 4:22 PM CDT Performed at [place] [address] [place] [address] CLIA number [id number] Terrence Hernandez MD LAB_1 Performing Organization Address [facility] Phon e Number HP CONVERSION (ABNORMAL) TSH AND FREE T4 (FRT4 IF TSH ABNORM) (01/19/2016 3:08 PM CDT) [facility] Method Time Signature Thyroid 5.10 (H) 0.20 - HP CONVERSION Stimulating 4.50 Hormone uIU/mL Specimen Anatomical Collection Method Collection Time Receive d Time (Source) Location / / Volume Laterality 01/19/2016 3:08 PM 6 3:23 CDT PM CDT Narrative HP CONVERSION - 01/19/2016 4:22 PM CDT Performed at [address] [address] CLIA number [id number] Terrence Hernandez MD LAB_1 Performing Organization Address [facility] Phon e Number HP CONVERSION Hepatitis A Antibody, Total (01/19/2016 3:08 PM CDT) [facility] Method Time Signature Hepatitis A Nonreactive Non-React HP CONVERSION Virus, IgG jessica (Immunity) Specimen Anatomical Collection Method Collection Time Receive d Time (Source) Location / / Volume Laterality 01/19/2016 3:08 PM 6 3:23 CDT PM CDT Narrative HP CONVERSION - 01/19/2016 4:22 PM CDT Performed at [address] [address] CLIA number [id number] Terrence Hernandez MD LAB_1 Performing Organization Address [facility] Phon e Number HP CONVERSION Hep B Surface Antigen, No Reflex (01/19/2016 3:08 PM CDT) [facility] Method Time Signature Hep B Surf Ag Nonreactive Negative HP CONVERSION Specimen Anatomical Collection Method Collection Time Receive d Time (Source) Location / / Volume Laterality 01/19/2016 3:08 PM 6 3:23 CDT PM CDT Narrative HP CONVERSION - 01/19/2016 4:22 PM CDT Performed at [address] [address] CLIA number [id number] Terrence Hernandez MD LAB_1 Performing Organization Address [facility] Phon e Number HP CONVERSION Hepatitis C Antibody, with Reflex (01/19/2016 3:08 PM CDT) [facility] Method Time Signature Hepatitis C Nonreactive Non-React HP CONVERSION Antibody jessica Specimen Anatomical Collection Method Collection Time Receive d Time (Source) Location / / Volume Laterality 01/19/2016 3:08 PM 6 3:23 CDT PM CDT Narrative HP CONVERSION - 01/19/2016 4:22 PM CDT [place]formed [place] [address] CLIA number [id number] Terrence Hernandez MD LAB_1 Performing Organization Address [facility] Phon e Number HP CONVERSION (ABNORMAL) Microalb/Creat Ratio (01/19/2016 3:08 PM CDT) [facility] Method Time Signature Microalbumin 141.0 mg/L HP CONVERSION Urine U Creat Random 248 mg/dL HP CONVERSION Microalbumin/Cre 56.9 (H) 0.0 - HP CONVERSION atinine Ratio 30.0 Specimen Anatomical Collection Method Collection Time Receive d Time (Source) Location / / Volume Laterality 01/19/2016 3:08 PM 6 3:21 CDT PM CDT Narrative HP CONVERSION - 01/19/2016 4:01 PM CDT Performed at [address] [address] CLIA number [id number] Terrence Hernandez MD LAB_1 Performing Organization Address [facility] Phon e Number HP CONVERSION (ABNORMAL) RENAL FUNCTION PANEL (01/19/2016 3:08 PM CDT) [facility] Method Time Signature Glucose Non 141 70 - 180 HP CONVERSION Fasting mg/dL Sodium 137 136 - 145 HP CONVERSION mmol/L Potassium 3.1 (L) 3.5 - 5.2 HP CONVERSION mmol/L Chloride 100 98 - 107 HP CONVERSION mmol/L Blood Urea 21 9 - 26 HP CONVERSION Nitrogen mg/dL Albumin 4.2 3.4 - 5.0 HP CONVERSION g/dL Calcium 9.6 8.4 - HP CONVERSION 10.2 mg/dL Phosphorus Serum 3.9 2.3 - 4.7 HP CONVERSION mg/dL Bicarbonate 28 22 - 29 HP CONVERSION mmol/L Creatinine Serum 1.40 (H) 0.73 - HP CONVERSION 1.18 mg/dL Est GFR >60 >60 HP CONVERSION Am mL/min/1. 73m2 Est GFR Non-Afr 56 (L) >60 HP CONVERSION Am mL/min/1. 73m2 Comment: Normal>60, moderate decrease 30 - 59, se alexia decrease 15 - 29, renal failure <15 mL/min/1.73 m2 NOTE: ??Choose the eGFR result above jamie ropriate for the race of the patient. Specimen Anatomical Collection Method Collection Time Receive d Time (Source) Location / / Volume Laterality 01/19/2016 3:08 PM 6 3:23 CDT PM CDT Narrative HP CONVERSION - 01/19/2016 4:00 PM CDT Performed at [place] [address] [place] [address] CLIA number [id number] Terrence Hernandez MD LAB_1 Performing Organization Address City/State/ZIP Code Phon e Number HP CONVERSION documented in this encounter Visit Diagnoses Diagnosis Chronic kidney disease, stage III (moder ate) (HRC) Chronic kidney disease, Stage III (moder ate) Abnormal AST and ALT Nonspecific elevation of levels of trans aminase or lactic acid dehydrogenase (LDH) Postviral fatigue syndrome Chronic fatigue syndrome documented in this encounter Care Teams Tool Liaison Relationship Specialty Start Date End Date Jun Benz MD PCP - General 10/12/15 02/20/17 [address] [place] [address] documented as of this encounter
--- OUTSIDE RECORDS SUMMARY | 2022-04-16 08:10 | XMS_ITS | Encounter Summary ---
:1960 Author Organization [employer] Address [address] [place] [address] Care Team Providers Name Role Phone Md THEE Yepez Primary Care Provider Reason for Visit Reason Comments Chronic Kidney Disease Encounter Details Date Type Department Care Team Description 09/21/2013 Office Visit Specialty Center Terrence Hernandez MD Unspecified essential hypertension (Prim yadira Dx); 3931 Nephrology 3931 [facility] Chronic kidney disease (CKD) , stage III (moderate); 3931 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 Bryce Mosley is a 53 y.o. who returns to clinic today for follow-up of his stage 3 CKD andHTN. He is feeling much better on the losartan and off the lisinopril. He no longer has burning in his throat. He denies any dizziness or lightheadedness. His BPs have been good at home mainly in the 120s/70s. He denies any dizziness or lightheadedness. Overall he is feeling well except for the stressat work. 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 He is going to [place] next week where he will relax. ROS: Negative except for that in the HPI. Meds: Reviewed by me in the EMR. Anti-HTN include: atenolol 50mg every day losartan 25mg every day BP 133/78 Pulse 52 Wt 203 lb (92.08 kg) BMI 26.05 kg/m2 Genl:healthy, alert, no distress, cooperative, smiling overweight HEENT:Sclera clear, anicteric CV: Regular rate and rhythm, S1, S2, no murmurs/rubs/gallops Lungs: clear to auscultation without wheezes or rales Abd:Soft, non-tender, normal bowel sounds. No bruits, organomegaly or masses. ext: no edema Lab Visit on 09/21/2013 Component Date Value Range Status ??? Lab Glucose 09/21/2013 114* 60 - 100 mg/dL Final ??? Sodium 09/21/2013 141 137 - 147 Final ??? Potassium 09/21/2013 3.9 3.5 - 5.2 Final ??? Chloride 09/21/2013 104 98 - 110 Final ??? Blood Urea Nitrogen 09/21/2013 20 5 - 26 mg/dL Final ??? Albumin 09/21/2013 4.5 3.4 - 5.0 g/dL Final ??? Calcium 09/21/2013 9.8 8.5 - 10.5 mg/dL Final ??? Phosphorus Serum 09/21/2013 3.2 2.5 - 4.5 mg/dL Final ??? Bicarbonate 09/21/2013 31 23 - 33 mmol/L Final ??? Creatinine Serum 09/21/2013 1.4* 0.4 - 1.3 mg/dL Final ? ? Est GFR Am 09/21/2013 >60 >60 Final ? ? Est GFR Non-Afr Am 09/21/2013 51* >60 Final Comment: Normal>60, moderate decrease 30 - 59, severe decrease 15 - 29, renal failure <15 mL/min/1.73 m2 NOTE: Choose the eGFR result above appropriate for the race of the patient. A: Mr. Bryce Mosley is a 53 y.o. with stage 3 CKD and HTN. HTN is well controlled. CKD 3 is stable. No changes to his regimen. He also has microalbuminuria which should be controlled with the losartan. Return to Clinic in 12mo with labs. 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
--- OUTSIDE RECORDS SUMMARY | 2022-04-16 08:10 | XMS_ITS | Encounter Summary ---
:1960 Author Organization [facility] Address [address] [place] [address] Care Team Providers Name Role Phone Md THEE Yepez Primary Care Provider Encounter Details Date Type Department Care Team Description 06/14/2015 Immunization [facility] Need for influenza [address]. vaccination (Primary Dx) [place] [address] Social History Tobacco Use Types Packs/Day Years Used Date Smoking Tobacco: Never Assessed Sex Assigned at Date Recorded Not on file documented as of this encounter Plan of Treatment Not on filedocumented as of this encounter Visit Diagnoses Diagnosis Need for influenza vaccination - Primary Need for prophylactic vaccination and in oculation against influenza documented in this encounter Care Teams Composition Floor Setter Relationship Specialty Start Date End Date Md Yepez MD PCP - General 12/01/12 10/11/15 [place], [place] [address] documented as of this encounter
--- OUTSIDE RECORDS SUMMARY | 2022-04-16 08:10 | XMS_ITS | Encounter Summary ---
:1960 Author Organization [employer] Address [address] [place] [address] Care Team Providers Name Role Phone Md THEE Yepez Primary Care Provider Encounter Details Date Type Department Care Team Description 07/02/2013 Lab Visit [facility] Unspecified essential hypert ension; [address] [address] Chronic kidney disease (CKD) , stage III (moderate) [place] [address] Social History Tobacco Use Types Packs/Day Years Used Date Smoking Tobacco: Never Assessed Sex Assigned at Date Recorded Not on file documented as of this encounter Plan of Treatment Not on filedocumented as of this encounter Procedures Procedure Name Priority Date/Time Associated Diagnosis Comme nts CREATININE / GFR Routine 07/02/2013 1:16 PM Unspecified essent ial Results for this MILITARY PROFESSIONAL hypertension (HR C) procedure are in Chronic kidney the results disease (CKD), stage section . III (moderate) (HRC) ELECTROLYTE PANEL Routine 07/02/2013 1:16 PM Unspecified essen tial Results for this MILITARY PROFESSIONAL hypertension (HR C) procedure are in Chronic kidney the results disease (CKD), stage section . III (moderate) (HRC) PHOSPHORUS Routine 07/02/2013 1:16 PM Unspecified essential Results for this MILITARY PROFESSIONAL hypertension (HR C) procedure are in Chronic kidney the results disease (CKD), stage section . III (moderate) (HRC) CALCIUM Routine 07/02/2013 1:16 PM Unspecified essential Results for this MILITARY PROFESSIONAL hypertension (HR C) procedure are in Chronic kidney the results disease (CKD), stage section . III (moderate) (HRC) BUN Routine 07/02/2013 1:16 PM Unspecified essential Results for this MILITARY PROFESSIONAL hypertension (HR C) procedure are in Chronic kidney the results disease (CKD), stage section . III (moderate) (HRC) documented in this encounter Results Phosphorus (07/02/2013 1:16 PM MILITARY PROFESSIONAL) athologist Signature Phosphorus 3.5 2.5 - 4.5 HP CONVERSION Serum mg/dL Specimen Anatomical Collection Method Collection Time Receive d Time (Source) Location / / Volume Laterality 07/02/2013 1:16 PM 3 2:37 MILITARY PROFESSIONAL PM MILITARY PROFESSIONAL Narrative HP CONVERSION - 07/02/2013 3:04 PM MILITARY PROFESSIONAL Performed at [facility] [address] [place] [address] Terrence Hernandez MD LAB_1 Performing Organization Address [facility] Phon e Number HP CONVERSION Calcium (07/02/2013 1:16 PM MILITARY PROFESSIONAL) athologist Signature Calcium 9.7 8.5 - 10.5 HP CONVERSION mg/dL Specimen Anatomical Collection Method Collection Time Receive d Time (Source) Location / / Volume Laterality 07/02/2013 1:16 PM 3 2:37 MILITARY PROFESSIONAL PM MILITARY PROFESSIONAL Narrative HP CONVERSION - 07/02/2013 3:04 PM MILITARY PROFESSIONAL Performed at [facility] [address] [place] [address] Terrence Hernandez MD LAB_1 Performing Organization Address [facility] Phon e Number HP CONVERSION BUN (07/02/2013 1:16 PM MILITARY PROFESSIONAL) athologist Signature Blood Urea 24 5 - 26 HP CONVERSION Nitrogen mg/dL Specimen Anatomical Collection Method Collection Time Receive d Time (Source) Location / / Volume Laterality 07/02/2013 1:16 PM 3 2:37 MILITARY PROFESSIONAL PM MILITARY PROFESSIONAL Narrative HP CONVERSION - 07/02/2013 3:04 PM MILITARY PROFESSIONAL Performed at [facility] [address] [place] [address] Terrence Hernandez MD LAB_1 Performing Organization Address City/[facility] Phon e Number HP CONVERSION (ABNORMAL) Creatinine / GFR (07/02/2013 1:16 PM MILITARY PROFESSIONAL) Analysis Performed At Patho logist Time Signature Creatinine 1.4 (H) 0.4 - 1.3 HP CONVERSION Serum mg/dL Est GFR >60 >60 HP CONVERSION Am mL/min/1.7 3m2 Est GFR Non-Afr 53 (L) >60 HP CONVERSION Am mL/min/1.7 3m2 Comment: Normal>60, moderate decrease 30 - 59, se alexia decrease 15 - 29, renal failure <15 mL/min/1.73 m2 NOTE: ??Choose the eGFR result above jamie ropriate for the race of the patient. Specimen Anatomical Collection Method Collection Time Receive d Time (Source) Location / / Volume Laterality 07/02/2013 1:16 PM 3 2:37 MILITARY PROFESSIONAL PM MILITARY PROFESSIONAL Narrative HP CONVERSION - 07/02/2013 3:04 PM MILITARY PROFESSIONAL Performed at [facility] [address] [place] [address] Terrence Hernandez MD LAB_1 Performing Organization Address City/[facility] Phon e Number HP CONVERSION (ABNORMAL) Electrolyte Panel (07/02/2013 1:16 PM MILITARY PROFESSIONAL) P athologist Signature Sodium 136 (L) 137 - 147 HP CONVERSION mEq/L Potassium 3.7 3.5 - 5.2 HP CONVERSION mEq/L Chloride 98 98 - 110 HP CONVERSION mEq/L Bicarbonate 31 23 - 33 HP CONVERSION mmol/L Specimen Anatomical Collection Method Collection Time Receive d Time (Source) Location / / Volume Laterality 07/02/2013 1:16 PM 3 2:37 MILITARY PROFESSIONAL PM MILITARY PROFESSIONAL Narrative HP CONVERSION - 07/02/2013 3:04 PM MILITARY PROFESSIONAL Performed at [facility] [address] [place] [address] Terrence Hernandez MD LAB_1 Performing Organization Address City/[facility] Phon e Number HP CONVERSION documented in this encounter Visit Diagnoses Diagnosis Unspecified essential hypertension (HRC) Unspecified essential hypertension Chronic kidney disease (CKD), stage III (moderate) (HRC) Chronic kidney disease, Stage III (moder ate) documented in this encounter Care Teams Transportation Planner Relationship Specialty Start Date End Date Md Yepez MD PCP - General 12/01/12 10/11/15 [place] [address] documented as of this encounter
--- OUTSIDE RECORDS SUMMARY | 2022-04-16 08:10 | XMS_ITS | Encounter Summary ---
:1960 Author Organization [facility] Address [address], [place] [address] Care Team Providers Name Role Phone Md THEE Yepez Primary Care Provider Reason for Visit Reason Comments Refill Encounter Details Date Type Department Care Team Description 10/10/2013 Refill Specialty Center 3931 Newton Hernandez MD Refill Nephrology 3931 [facility] [address] [place] [address] [place], [place] [address] [phone] Social History Tobacco Use Types Packs/Day Years Used Date Smoking Tobacco: Never Assessed Sex Assigned at Date Recorded Not on file documented as of this encounter Plan of Treatment Not on filedocumented as of this encounter Visit Diagnoses Not on filedocumented in this encounter Care Teams Special Procedure Technologist Relationship Specialty Start Date End Date Md Yepez MD PCP - General 12/01/12 10/11/15 [place], [place] [id number] documented as of this encounter
--- OUTSIDE RECORDS SUMMARY | 2022-04-16 08:10 | XMS_ITS | Encounter Summary ---
:1960 Author Organization [facility] Address [address] [place] [address] Care Team Providers Name Role Phone Jun Benz MD Primary Care Provider Reason for Visit Reason Comments Refill Encounter Details Date Type Department Care Team Description 01/10/2016 Refill Specialty Center 3931 Newtno Hernandez MD Refill Nephrology 3931 [facility] [address] [place] [address] [place] [address] [phone] Social History Tobacco Use Types Packs/Day Years Used Date Smoking Tobacco: Never Assessed Sex Assigned at Date Recorded Not on file documented as of this encounter Nursing Notes Cassandra Zendejas RN - 01/10/2016 10:54 AM CDT Medication refilled per refill protocol. Follow up appt scheduled for 01/18. documented in this encounter Plan of Treatment Not on filedocumented as of this encounter Visit Diagnoses Not on filedocumented in this encounter Care Teams Cruise Guide Relationship Specialty Start Date End Date Jun Benz MD PCP - General 10/12/15 02/20/17 [address] [place], [place] [id number] documented as of this encounter
--- OUTSIDE RECORDS SUMMARY | 2022-04-16 08:10 | XMS_ITS | Encounter Summary ---
:1960 Author Organization [facility] Address [address] [place] [address] Care Team Providers Name Role Phone Jun Benz MD Primary Care Provider Encounter Details Date Type Department Care Team Description 10/13/2015 Lab Visit [facility] Cramp and spasm [id number] 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 documented in this encounter Miscellaneous Notes Miscellaneous - 08/29/2016 8:22 PM CSTNotes Recorded by Jun Benz MD on 10/14/2015 at 9:17 AMMychart S CASTING MACHINE OPERATOR Miscellaneous - 08/29/2016 8:22 PM CSTNotes Recorded by Jun Benz MD on 10/14/2015 at 9:17 AMMychart S CASTING MACHINE OPERATOR Miscellaneous - 08/29/2016 8:22 PM CSTNotes Recorded by Jun Benz MD on 10/14/2015 at 9:17 AMMychart S CASTING MACHINE OPERATOR Miscellaneous - 08/29/2016 8:22 PM CSTNotes Recorded by Jun Benz MD on 10/14/2015 at 9:17 AMMychart S CASTING MACHINE OPERATOR Miscellaneous - 08/29/2016 8:22 PM CSTNotes Recorded by Jun Benz MD on 10/14/2015 at 9:17 AMMychart S CASTING MACHINE OPERATOR Miscellaneous - 08/29/2016 8:22 PM CSTNotes Recorded by Jun Benz MD on 10/14/2015 at 9:17 AMMychart S CASTING MACHINE OPERATOR Miscellaneous - 08/29/2016 8:22 PM CSTNotes Recorded by Jun Benz MD on 10/14/2015 at 9:17 AMMychart S CASTING MACHINE OPERATOR Miscellaneous - 08/29/2016 8:22 PM CSTNotes Recorded by Jun Benz MD on 10/14/2015 at 9:17 AMMychart S CASTING MACHINE OPERATOR documented in this encounter Plan of Treatment Not on filedocumented as of this encounter Procedures Procedure Name Priority Date/Time Associated Comments Diagnosis TSH AND FREE T4 (FRT4 Routine 10/13/2015 3:53 PM Cramp and spa sm Results for this IF TSH ABNORM) CDT procedure are in the results section. COMPLETE BLOOD Routine 10/13/2015 3:53 PM Cramp and spasm Resu lts for this COUNT-W/DIFF CDT procedure are i n the results section. LIVER PANEL(HEPATIC Routine 10/13/2015 3:53 PM Cramp and spasm Results for this FUNCTION PANEL) CDT procedure ar e in the results section. BASIC METABOLIC PANEL Routine 10/13/2015 3:53 PM Cramp and spa sm Results for this CDT procedure are i n the results section. DIFFERENTIAL Routine 10/13/2015 3:53 PM Results f or this CDT procedure are i n the results section. FREE T4 Routine 10/13/2015 3:53 PM Results f or this CDT procedure are i n the results section. CK, TOTAL Routine 10/13/2015 3:53 PM Cramp and spasm Result s for this CDT procedure are i n the results section. ESR Routine 10/13/2015 3:53 PM Cramp and spasm Result s for this CDT procedure are i n the results section. documented in this encounter Results Free T4 (10/13/2015 3:53 PM CDT) athologist Signature Thyroxine, Free 1.4 0.7 - 1.5 HP CONVERSION ng/dL Specimen Anatomical Collection Method Collection Time Receive d Time (Source) Location / / Volume Laterality 10/13/2015 3:53 PM 6 7:33 CDT PM CDT Narrative HP CONVERSION - 10/13/2015 9:38 PM CDT Performed at [facility] [address] [place] [address] CLIA number [id number] Transcriptions 08/29/2016 8:22 PM CSTNotes Recorded by Jun Benz MD on 10/14/2015 at 9:17 AMMychart Jun Benz MD LAB_1 Performing Organization Address City/State/ZIP Code Phon e Number HP CONVERSION Differential (10/13/2015 3:53 PM CDT) athologist Signature Absolute 5.0 1.8 - 8.0 HP CONVERSION Neutrophils k/cmm Absolute 2.6 1.1 - 4.0 HP CONVERSION Lymphocytes k/cmm Absolute 0.8 0.2 - 0.8 HP CONVERSION Monocytes k/cmm Absolute 0.1 0.0 - 0.5 HP CONVERSION Eosinophils k/cmm Absolute 0.0 0.0 - 0.2 HP CONVERSION Basophils k/cmm Specimen Anatomical Collection Method Collection Time Receive d Time (Source) Location / / Volume Laterality 10/13/2015 3:53 PM 6 3:52 CDT PM CDT Narrative HP CONVERSION - 10/13/2015 3:55 PM CDT Performed at [facility], [facility] [place] [address] CLIA number [id number] Transcriptions 08/29/2016 8:22 PM CSTNotes Recorded by Jun Benz MD on 10/14/2015 at 9:17 AMMychart Jun Benz MD LAB_1 Performing Organization Address City/[facility]/ZIP Code Phon e Number HP CONVERSION (ABNORMAL) TSH AND FREE T4 (FRT4 IF TSH ABNORM) (10/13/2015 3:53 PM CDT) [facility] Method Time Signature Thyroid 4.90 (H) 0.20 - HP CONVERSION Stimulating 4.50 Hormone uIU/mL Specimen Anatomical Collection Method Collection Time Receive d Time (Source) Location / / Volume Laterality 10/13/2015 3:53 PM 6 7:33 CDT PM CDT Narrative HP CONVERSION - 10/13/2015 8:44 PM CDT Performed at [address] [address] CLIA number [id number] Transcriptions 08/29/2016 8:22 PM CSTNotes Recorded by Jun Benz MD on 10/14/2015 at 9:17 AMMychart Jun Benz MD LAB_1 Performing Organization Address City/[facility] [address]/ZIP Code Phon e Number HP CONVERSION (ABNORMAL) Liver Panel(Hepatic Function Panel) (10/13/2015 3:53 PM CDT) [facility] Method Time Signature Alk Phos 76 40 - 150 HP CONVERSION U/L Bilirubin Total 1.2 0.2 - 1.2 HP CONVERSION mg/dL Bilirubin, Direct 0.3 0.0 - 0.5 HP CONVERSIO N mg/dL Protein Total, Serum 7.4 6.4 - 8.3 HP CONVER KORIN g/dL Albumin 4.1 3.4 - 5.0 HP CONVERSION g/dL Aspartate 35 (H) 9 - 34 HP CONVERSION Aminotransferase U/L Alanine 73 (H) 9 - 55 HP CONVERSION Aminotransferase U/L Specimen Anatomical Collection Method Collection Time Receive d Time (Source) Location / / Volume Laterality 10/13/2015 3:53 PM 6 6:06 CDT PM CDT Narrative HP CONVERSION - 10/13/2015 7:20 PM CDT Performed at [facility], [address] [place] [address] CLIA number [id number] Transcriptions 08/29/2016 8:22 PM CSTNotes Recorded by Jun Benz MD on 10/14/2015 at 9:17 AMMychart Jun Benz MD LAB_1 Performing Organization Address City/State/ZIP Code Phon e Number HP CONVERSION CK, Total (10/13/2015 3:53 PM CDT) athologist Signature Creatine Kinase 34 30 - 200 HP CONVERSION U/L Specimen Anatomical Collection Method Collection Time Receive d Time (Source) Location / / Volume Laterality 10/13/2015 3:53 PM 6 6:06 CDT PM CDT Narrative HP CONVERSION - 10/13/2015 7:20 PM CDT Performed at [facility], [address] [place] [address] CLIA number [id number] Transcriptions 08/29/2016 8:22 PM CSTNotes Recorded by Jun Benz MD on 10/14/2015 at 9:17 AMMychart Jun Benz MD LAB_1 Performing Organization Address City/[facility]/ZIP Code Phon e Number HP CONVERSION ESR (10/13/2015 3:53 PM CDT) [facility] gist Method Time Signature Sedimentation Rate 7 0 - 15 HP CONVERSI ON mm/hr Specimen Anatomical Collection Method Collection Time Receive d Time (Source) Location / / Volume Laterality 10/13/2015 3:53 PM 6 3:52 CDT PM CDT Narrative HP CONVERSION - 10/13/2015 4:30 PM CDT Performed at [facility], [address] [place] [address] CLIA number [id number] Transcriptions 08/29/2016 8:22 PM CSTNotes Recorded by Jun Benz MD on 10/14/2015 at 9:17 AMMychart Jun Benz MD LAB_1 Performing Organization Address City/State/ZIP Code Phon e Number HP CONVERSION Complete Blood Count W/Diff (10/13/2015 3:53 PM CDT) athologist Signature White Blood Cell 8.6 3.8 - 11.0 HP CONVERSIO N Count k/cmm Red Blood Cell 5.29 4.20 - HP CONVERSION Count 5.90 m/cmm Hemoglobin 16.2 13.4 - HP CONVERSION 17.5 g/dL Hematocrit 44.4 39.0 - HP CONVERSION 51.0 % Mean Corpuscular 83.9 80.0 - HP CONVERSION Volume 100.0 fL RDW 13.0 11.0 - HP CONVERSION 15.0 % Platelet Count 283 140 - 450 HP CONVERSION k/cmm Specimen Anatomical Collection Method Collection Time Receive d Time (Source) Location / / Volume Laterality 10/13/2015 3:53 PM 6 3:52 CDT PM CDT Narrative HP CONVERSION - 10/13/2015 3:55 PM CDT Performed at [facility], [address] [place] [id number] CLIA number [id number] Transcriptions 08/29/2016 8:22 PM CSTNotes Recorded by Jun Benz MD on 10/14/2015 at 9:17 AMMychart Jun Benz MD LAB_1 Performing Organization Address City/State/ZIP Code Phon e Number HP CONVERSION (ABNORMAL) Basic Metabolic Panel (10/13/2015 3:53 PM CDT) [facility] gist Method Time Signature Creatinine Serum 1.30 (H) 0.73 - HP CONVERSION 1.18 mg/dL Lab Glucose 189 (H) 60 - 100 HP CONVERSION mg/dL Bicarbonate 27 22 - 29 HP CONVERSION mmol/L Chloride 99 98 - 107 HP CONVERSION mmol/L Potassium 3.5 3.5 - 5.2 HP CONVERSION mmol/L Sodium 137 136 - 145 HP CONVERSION mmol/L Blood Urea 20 9 - 26 HP CONVERSION Nitrogen mg/dL Calcium 9.4 8.4 - HP CONVERSION 10.2 mg/dL Est GFR >60 >60 HP CONVERSION Am mL/min/1. 73m2 Est GFR Non-Afr >60 >60 HP CONVERSION Am mL/min/1. 73m2 Comment: Normal>60, moderate decrease 30 - 59, se alexia decrease 15 - 29, renal failure <15 mL/min/1.73 m2 NOTE: ??Choose the eGFR result above jamie ropriate for the race of the patient. Specimen Anatomical Collection Method Collection Time Receive d Time (Source) Location / / Volume Laterality 10/13/2015 3:53 PM 6 6:06 CDT PM CDT Narrative HP CONVERSION - 10/13/2015 7:20 PM CDT Performed at [facility], [address] [facility], [place] [address] CLIA number [id number] Transcriptions 08/29/2016 8:22 PM CSTNotes Recorded by uJn Benz MD on 10/14/2015 at 9:17 AMMychart Jun Benz MD LAB_1 Performing Organization Address City/State/ZIP Code Phon e Number HP CONVERSION documented in this encounter Visit Diagnoses Diagnosis Cramp and spasm documented in this encounter Care Teams Volunteer Manager Relationship Specialty Start Date End Date Jun Benz MD PCP - General 10/12/15 02/20/17 [address] [place] [address] documented as of this encounter
--- OUTSIDE RECORDS SUMMARY | 2022-04-16 08:10 | XMS_ITS | Encounter Summary ---
:1960 Author Organization [facility] Address [address] [place] [address] Care Team Providers Name Role Phone Md THEE Yepez Primary Care Provider Encounter Details Date Type Department Care Team Description 05/28/2013 Immunization [facility] Need for influenza [id number] vaccination (Primary Dx) [place] [address] Social History Tobacco Use Types Packs/Day Years Used Date Smoking Tobacco: Never Assessed Sex Assigned at Date Recorded Not on file documented as of this encounter Plan of Treatment Not on filedocumented as of this encounter Visit Diagnoses Diagnosis Need for influenza vaccination - Primary Need for prophylactic vaccination and in oculation against influenza documented in this encounter Care Teams Power Wood Sawyer Relationship Specialty Start Date End Date Md Yepez MD PCP - General 12/01/12 10/11/15 [place], [place] [address] documented as of this encounter
--- OUTSIDE RECORDS SUMMARY | 2022-04-16 08:10 | XMS_ITS | Encounter Summary ---
:1960 Author Organization [facility] Address [address], [place] [address] Care Team Providers Name Role Phone DemarJun daniels MD Primary Care Provider Encounter Details Date Type Department Care Team Description 02/14/2017 Lab Visit [facility] 3931 Chroni c kidney disease Outpatient Laborator y (CKD), stage III (moderate) [address] [facility]) [place], [place] [address] Social History Tobacco Use Types Packs/Day Years [...] Procedure Name Priority Date/Time Associated Comments Diagnosis RENIN ACTIVITY Routine 02/14/2017 9:43 AM Chronic kidney Resul ts for this CDT disease (CKD), procedure are in stage III the results (moderate) ([facility]) section. ALDOSTERONE SERUM Routine 02/14/2017 9:43 AM Chronic kidney Re sults for this CDT disease (CKD), procedure are in stage III the results (moderate) ([facility]) section. VITAMIN D 25-HYDROXY, Routine 02/14/2017 9:43 AM Chronic kidne y Results for this TOTAL CDT disease (CKD), procedure are in stage III the results (moderate) ([facility]) section. RENAL FUNCTION PANEL Routine 02/14/2017 9:43 AM Chronic kidney Results for this CDT disease (CKD), procedure are in stage III the results (moderate) ([facility]) section. INTACT PTH Routine 02/14/2017 9:43 AM Chronic kidney Results for this CDT disease (CKD), procedure are in stage III the results (moderate) ([facility]) section. MAGNESIUM Routine 02/14/2017 9:43 AM Chronic kidney Results for this CDT disease (CKD), procedure are in stage III the results (moderate) ([facility]) section. TSH, SENSITIVE (WITH Routine 02/14/2017 9:43 AM Chronic kidney Results for this REFLEX) CDT disease (CKD), procedure are in stage III the results (moderate) ([facility]) section. ALBUMIN/CREAT RATIO Routine 02/14/2017 9:37 AM Chronic kidney Results for this CDT disease (CKD), procedure are in stage III the results (moderate) ([facility]) section. documented in this encounter Results TSH with Free T4 (if TSH Abnormal) (02/14/2017 9:43 AM CDT) athologist Signature Thyroid 4.33 0.30 - PN SOFT Stimulating 4.50 Hormone uIU/mL Specimen Anatomical Collection Method Collection Time Receive d Time (Source) Location / / Volume Laterality 02/14/2017 9:43 AM 7 9:56 CDT AM CDT Narrative PN SOFT - 02/14/2017 10:44 AM CDT Performed at [facility], [address] [place] [address] CLIA number [id number] .Critical GLUC result of 465 called to and read back by RANDALL MEDINA RN,.02/14/2017,10:40, by ANGEL Terrence Hernandez MD LAB_1 Performing Organization Address City/State/ZIP Code Phon e Number PN SOFT [address] [place] [address] Magnesium - today (02/14/2017 9:43 AM CDT) athologist Signature Magnesium 2.4 1.6 - 2.6 PN SOFT mg/dL Specimen Anatomical Collection Method Collection Time Receive d Time (Source) Location / / Volume Laterality 02/14/2017 9:43 AM 201 7 9:56 CDT AM CDT Narrative PN SOFT - 02/14/2017 10:37 AM CDT Performed at [place] [address] [place] [address] IA number [id number] Terrence Hernandez MD LAB_1 Performing Organization Address City/State/ZIP Code Phon e Number PN SOFT [address] [place] [address] Renin Activity (02/14/2017 9:43 AM CDT) athologist Signature Renin Activity 2.0 ng/mL/hr PN SOFT Comment: INTERPRETIVE INFORMATION: Renin Activity Adult, Normal sodium diet: ??Supine ................. 0.2-1.6 ng/m L/hr ??Upright ................ 0.5-4.0 ng/m L/hr Children, Normal sodium diet, Supine: ??[place] (1-7 days) ..... 2.0-35.0 ng/ mL/hr ??Cord [...] angiotensinogen is decreased. See Compliance Statement D: [email or web address] Performed by [facility], [address] [place] [id number] [email or web address], Mario Smith MD - Lab . Director Specimen Anatomical Collection Method Collection Time Receive d Time (Source) Location / / Volume Laterality 02/14/2017 9:43 AM 7 9:56 CDT AM CDT Narrative PN SOFT - 02/19/2017 9:10 PM CDT Performed at [facility] [address] [place] [address] CLIA number [id number] .Critical GLUC result of 465 called to and read back by RANDALL MEDINA RN,.02/14/2017,10:40, by [facility] Terrence Hernandez MD LAB_1 Performing Organization Address City/State/ZIP Code Phon e Number PN SOFT [address] [place], [place] [address] Aldosterone Serum (02/14/2017 9:43 AM CDT) P athologist Signature Aldosterone 6.5 ng/dL PN SOFT [...] reference intervals for this test in the [facility] Test Directory ([facility]). Performed by [facility], [address] [place] [address] [email or web address], Mario Smith MD - Lab . Director Specimen Anatomical Collection Method Collection Time Receive d Time (Source) Location / / Volume Laterality 02/14/2017 9:43 AM 7 9:56 CDT AM CDT Narrative PN SOFT - 02/15/2017 11:33 PM CDT Performed at [facility] [address] [place] [address] CLIA number [id number] .Critical GLUC result of 465 called to and read back by RANDALL MEDINA RN,.02/14/2017,10:40, by [facility] Terrence Hernandez MD LAB_1 Performing Organization Address City/State/ZIP Code Phon e Number PN SOFT [address] [place] [address] [phone] Vitamin D (In house) - today (02/14/2017 [...] - 02/14/2017 4:57 PM CDT Performed at [facility], [facility] [place] [address] CLIA number [id number] .Critical GLUC result of 465 called to and read back by RANDALL MEDINA RN,.02/14/2017,10:40, by [facility] Terrence Hernandez MD LAB_1 Performing Organization Address [facility] Phon e Number PN SOFT [address] [place] [address] PTH - Parathyroid Hormone Intact - today (02/14/2017 9:43 AM CDT) P athologist Signature PTH 41 10 - 100 PN SOFT pg/mL Specimen Anatomical Collection Method Collection Time Receive d Time (Source) Location / / Volume Laterality 02/14/2017 9:43 AM 7 9:56 CDT AM CDT Narrative PN SOFT - 02/14/2017 11:03 AM CDT Performed at [address] [address] CLIA number [id number] .Critical GLUC result of 465 called to and read back by RANDALL MEDINA RN,.02/14/2017,10:40, by [facility] Terrence Hernandez MD LAB_1 Performing Organization Address [facility] Phon e Number PN SOFT [address] [place] [address] (ABNORMAL) Renal Function Panel - today (02/14/2017 9:43 AM CDT) Analysis Performed At Patho logist Time Signature Glucose Non 465 (CH) 70 [...] - 02/14/2017 10:37 AM CDT Performed at [place] [address] CLIA number [id number] .Critical GLUC result of 465 called to and read back by RANDALL MEDINA RN,.02/14/2017,10:40, by [facility] Terrence Hernandez MD LAB_1 Performing Organization Address [facility] Phon e Number PN SOFT [address] [place] [address] (ABNORMAL) Microalbumin Urine Random - today (02/14/2017 9:37 AM CDT) [facility] Method Time Signature Microalbumin 108.8 mg/L PN SOFT Urine U Creat Random 83 mg/dL PN SOFT Microalbumin/Crea 131.1 (H) 0.0 - PN SOFT tinine Ratio 30.0 Specimen Anatomical Collection Method Collection Time Receive d Time (Source) Location / / Volume Laterality Urine specimen 02/14/2017 9:37 AM 017 9:55 (specimen) CDT AM CDT Narrative PN SOFT - 02/14/2017 10:51 AM CDT Performed at [address] [address] CLIA number [id number] .Critical GLUC result of 465 called to and read back by RANDALL MEDINA RN,.02/14/2017,10:40, by [facility] Terrence Hernandez MD LAB_1 Performing Organization Address [facility] Phon e Number PN SOFT [address] [place] [address] documented in this encounter Visit Diagnoses Diagnosis Chronic kidney disease (CKD), stage III (moderate) ([facility]) Chronic kidney disease, Stage III (moder ate) documented in this encounter Care Teams System Controller Relationship Specialty Start Date End Date Jun Benz MD PCP - General 10/12/15 02/20/[address] [place] [address] documented as of this encounter
--- OUTSIDE RECORDS SUMMARY | 2022-04-16 08:10 | XMS_ITS | Encounter Summary ---
:1960 Author Organization [facility] Address [address], [place] [address] Care Team Providers Name Role Phone DemarJun MD Primary Care Provider Reason for Visit Reason Comments Follow-up elevated glucose Encounter Details Date Type Department Care Team Description 02/19/2017 Office Visit [place] [facility] Sunny Giraldo M D High glucose (Primary Dx); Medicine [address] [place] of [place] [address] [place] [phone] Social History Tobacco Use Types Packs/Day Years [...] Sign Reading Time Taken Comments Blood Pressure 124/84 02/19/2017 11:20 AM CDT Pulse 63 02/19/2017 11:20 AM CDT Temperature - - Respiratory Rate 16 02/19/2017 11:08 AM CDT Oxygen Saturation - - Inhaled Oxygen Concentration - - Weight 94.3 kg (208 lb) 02/19/2017 11:08 AM CDT Height 183.5 cm (6' 0.25) 02/19/2017 11:08 AM CDT Body Mass Index 28.01 02/19/2017 11:08 AM CDT documented in this encounter Progress Notes Sunny Giraldo MD - 02/19/2017 12:22 PM CDT NAME: JOSH MOSLEY MR#: [id number] CSN: [id number] AUTHENTICATING CLINICIAN: Sunny Giraldo MD CONFIRM #: [id number] LOC: 4402 CLINIC PROGRESS NOTE DATE OF VISIT: 02/19/2017 : 1960 SUBJECTIVE: 56-year-old male who is coming today to clinic. He usually sees human service coordinator for his chronic kidney disease stage 3, moderate. His last visit he had lab tests and his blood sugar was high 400. He was not fasting and he was advised to have a primary clinic check to follow up regarding that, too. PAST MEDICAL HISTORY: Hypertension, hyperlipidemia, chronic nonalcoholic liver disease, also he has and chronic kidney disease. REVIEW OF SYSTEMS: The patient denies any chest pain, chest tightness, shortness of breath or any abnormal jose. The rest of his HEENT, neck, lung, cardiovascular negative. He is fasting today. MEDICATIONS: Reviewed. He is on Tenormin. Because of shortage of the Tenormin, his human service coordinator is going to change it probably to Glucotrol XL. He his taking also Hygroton 25 mg. He takes Cozaar 25 mg and Prilosec 20 mg. OBJECTIVE: VITAL SIGNS: On arrival, his blood pressure is a little bit high, 151/91, but Omron is 124/84. Pulse64. Exam, otherwise HEENT, neck, lung, cardiovascular, GI, skeletal, muscle negative. ASSESSMENT: 1. Hypertension and chronic kidney disease under the treatment of human service coordinator. 2. Elevated liver enzymes. Cause not known. 3. Gastroesophageal reflux disease. 4. Elevated blood sugar. PLAN: 1. Will check hemoglobin A1c, fasting blood sugar and also urine for sugar. 2. Regarding the GERD, I urged the patient to take Zantac instead of Prilosec, but according to the patient, Zantac did not work for him at all and he will not do that. 3. Also will check his liver enzymes. 4. Concerns or questions, back to the clinic. Otherwise, will follow up after the lab results come back. He agreed. YO:MEDQ C: CONFIRM #: [id number] documented in this encounter Plan of Treatment Not on filedocumented as of this encounter Results (ABNORMAL) Liver Panel(Hepatic Function Panel) (02/19/2017 3:00 PM CDT) Patholo gist Method Time Signature Alk Phos 71 40 [...] - 02/19/2017 2:44 PM CDT Performed at [facility], [facility] [address] [place] [address] CLIA number [id number] Sunny Giraldo MD LAB_1 Performing Organization Address City/State/ZIP Code Phon e Number PN SOFT [address] [place], [place] [address] [phone] (ABNORMAL) Hemoglobin A1C Glycosylated (02/19/2017 3:00 PM CDT) athologist Signature HGB A1C 9.3 (H) 4.0 - 5.6 % PN SOFT Specimen Anatomical Collection Method Collection Time Receive d Time (Source) Location / / Volume Laterality Urine: 02/19/2017 3:00 PM 7 6:28 CDT PM CDT Narrative PN SOFT - 02/19/2017 5:05 PM CDT Performed at [facility], [address] [place] [address] CLIA number [id number] Sunny Giraldo MD LAB_1 Performing Organization Address [facility] Phon e Number PN SOFT [address] [place] [address] (ABNORMAL) UR NPT Hold for Culture (02/19/2017 11:51 AM CDT) [facility] Method Time Signature Urine Type URINE:clean PN [...] U Specific 1.025 1.005 - PN SOFT [place] 1.030 Urobilinogen 1.0 Negative PN SOFT Urine Eu/dL Turbidity Clear Clear PN SOFT Color Yellow PN SOFT Specimen Anatomical Collection Method Collection Time Receive d Time (Source) Location / / Volume Laterality 02/19/2017 11:51 02/19/2017 AM CDT 11:51 AM CDT Narrative PN SOFT - 02/19/2017 12:30 PM CDT Performed at [facility], [facility] [place] [address] CLIA number [id number] Sunny Giraldo MD LAB_1 Performing Organization Address [facility] Phon e Number PN SOFT [address] [place] [address] (ABNORMAL) Glucose (02/19/2017 11:51 AM CDT) P athologist Signature Lab Glucose 304 (H) 70 - 100 PN SOFT mg/dL Comment: The stated glucose range is for the fast ing state. Non-fasting glucose range is 70-180 mg/d L Specimen Anatomical Collection Method Collection Time Receive d Time (Source) Location / / Volume Laterality 02/19/2017 11:51 02/19/2017 2:28 AM CDT PM CDT Narrative PN GEE - 02/19/2017 2:49 PM CDT Performed at [facility], [address] [facility], [place] [address] CLIA number [id number] Sunny Giraldo MD LAB_1 Performing Organization Address City/State/ZIP Code Phon e Number PN SOFT [address] [place] [address] [phone] documented in this encounter Visit Diagnoses Diagnosis High glucose - Primary Abnormal results of liver function studi es Nonspecific abnormal results of liver fu nction study High glucose Abnormal results of liver function studi es Nonspecific abnormal results of liver fu nction study documented in this encounter Care Teams Guard Immigration Relationship Specialty Start Date End Date Jun Benz MD PCP - General 10/12/15 02/20/17 [address] [place] [address] documented as of this encounter
--- OUTSIDE RECORDS SUMMARY | 2022-04-16 08:10 | XMS_ITS | Encounter Summary ---
:1960 Author Organization [facility] Address [address] [place] [address] Care Team Providers Name Role Phone Md THEE Yepez Primary Care Provider Reason for Visit Reason Comments Refill Encounter Details Date Type Department Care Team Description 01/11/2015 Refill Specialty Center 3931 Newton Hernandez MD Refill Nephrology 3931 [facility] [address] [place] [address] [place], [place] [id number] [phone] Social History Tobacco Use Types Packs/Day Years Used Date Smoking Tobacco: Never Assessed Sex Assigned at Date Recorded Not on file documented as of this encounter Nursing Notes Cele Philip RN - 01/12/2015 3:44 PM CDT Medication refilled per protocol. documented in this encounter Plan of Treatment Not on filedocumented as of this encounter Visit Diagnoses Not on filedocumented in this encounter Care Teams Geothermal Hvac Technician Relationship Specialty Start Date End Date Md Yepez MD PCP - General 12/01/12 10/11/15 [place], [place] [address] documented as of this encounter
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
--- OUTSIDE RECORDS SUMMARY | 2022-04-16 08:11 | XMS_ITS | Encounter Summary ---
:1960 Author Organization [facility] Address [address], [place] [address] Care Team Providers Name Role Phone Huseyin Lewisjoao NGUYỄN CNP Primary Care Provider [phone] Encounter Details Date Type Department Care Team Description 09/20/2010 PN Conversion Only [place] [address] [address] [address] [place], [place] [address] (Wo rk) Social History Tobacco Use Types Packs/Day Years Used Date Smoking Tobacco: Never Assessed Sex Assigned at Date Recorded Not on file documented as of this encounter Plan of Treatment Not on filedocumented as of this encounter Procedures Procedure Name Priority Date/Time Associated Comments Diagnosis ALBUMIN/CREAT RATIO Routine 09/20/2010 2:36 PM Re sults for this [facility] procedure are i n the results section. VITAMIN D 25-HYDROXY, Routine 09/20/2010 1:45 PM Results for this TOTAL [facility] procedure are i n the results section. INTACT PTH Routine 09/20/2010 1:45 PM Results f or this [facility] procedure are i n the results section. CREATININE / GFR Routine 09/20/2010 1:45 PM Resul ts for this [facility] procedure are i n the results section. COMPLETE BLOOD Routine 09/20/2010 1:45 PM Results for this COUNT-NO DIFF [facility] procedure are in the results section. ELECTROLYTE PANEL Routine 09/20/2010 1:45 PM Resu lts for this [facility] procedure are i n the results section. PROTEIN, TOTAL Routine 09/20/2010 1:45 PM Results for this (SERUM) [facility] procedure are i n the results section. PHOSPHORUS Routine 09/20/2010 1:45 PM Results f or this [facility] procedure are i n the results section. CALCIUM Routine 09/20/2010 1:45 PM Results f or this [facility] procedure are i n the results section. BUN Routine 09/20/2010 1:45 PM Results f or this [facility] procedure are i n the results section. ALBUMIN Routine 09/20/2010 1:45 PM Results f or this [facility] procedure are i n the results section. documented in this encounter Results Microalb/Creat Ratio (09/20/2010 2:36 PM [facility]) Analysis Performed At Patho logist Time Signature Microalbumin <6.0 mg/L HP CONVERSION Urine U Creat Random <2 mg/dL HP CONVERSION Microalbumin/Crea <10.0 0.0 - 30.0 HP CONVERSI ON tinine Ratio Specimen (Source) Anatomical Collection Method Collection Time Re ceived Time Location / / Volume Laterality 09/20/2010 2:36 PM [facility] Terrence Hernandez MD LAB_1 Performing Organization Address City/State/ZIP Code Phon e Number HP CONVERSION Hemogram/Plts (09/20/2010 1:45 PM [facility]) P athologist Signature White Blood Cell 9.7 3.8 - 11.0 HP CONVERSIO N Count k/cmm Red Blood Cell 4.71 4.20 - HP CONVERSION Count 5.90 m/cmm Hemoglobin 14.6 13.4 - HP CONVERSION 17.5 g/dL Hematocrit 41.8 39.0 - HP CONVERSION 51.0 % Mean Corpuscular 88.8 80.0 - HP CONVERSION Volume 100.0 fL RDW 12.3 11.0 - HP CONVERSION 15.0 % Platelet Count 277 140 - 450 HP CONVERSION k/cmm Specimen (Source) Anatomical Collection Method Collection Time Re ceived Time Location / / Volume Laterality 09/20/2010 1:45 PM [facility] Terrence Hernandez MD LAB_1 Performing Organization Address City/State/ZIP Code Phon e Number HP CONVERSION Vitamin D 25-Hydroxy, Total (09/20/2010 1:45 PM [facility]) P athologist Signature Vitamin D 25 Oh 39 20 - 80 HP CONVERSION ng/mL Comment: Deficiency = <20 Adequate ??= 20-29 Preferred = 30-50 Uncertain safety = 51-80 High = >80 Specimen (Source) Anatomical Collection Method Collection Time Re ceived Time Location / / Volume Laterality 09/20/2010 1:45 PM [facility] Terrence Hernandez MD LAB_1 Performing Organization Address [facility] Code Phon e Number HP CONVERSION Intact PTH (09/20/2010 1:45 PM [facility]) athologist Signature PTH 57 10 - 100 HP CONVERSION pg/mL Specimen (Source) Anatomical Collection Method Collection Time Re ceived Time Location / / Volume Laterality 09/20/2010 1:45 PM [facility] Terrence Hernandez MD LAB_1 Performing Organization Address [facility] Phon e Number HP CONVERSION Electrolyte Panel (09/20/2010 1:45 PM [facility]) athologist Signature Sodium 138 137 - 147 HP CONVERSION mEq/L Potassium 3.9 3.5 - 5.2 HP CONVERSION mEq/L Chloride 105 98 - 110 HP CONVERSION mEq/L Bicarbonate 28 23 - 33 HP CONVERSION mmol/L Specimen (Source) Anatomical Collection Method Collection Time Re ceived Time Location / / Volume Laterality 09/20/2010 1:45 PM [facility] Terrence Hernandez MD LAB_1 Performing Organization Address [facility] Code Phon e Number HP CONVERSION Protein, Total (Serum) (09/20/2010 1:45 PM [facility]) athologist Signature Protein Total, 7.6 5.7 - 8.3 HP CONVERSION Serum g/dL Specimen (Source) Anatomical Collection Method Collection Time Re ceived Time Location / / Volume Laterality 09/20/2010 1:45 PM [facility] Terrence Hernandez MD LAB_1 Performing Organization Address City/[facility] Code Phon e Number HP CONVERSION Phosphorus (09/20/2010 1:45 PM [facility]) athologist Signature Phosphorus 3.2 2.5 - 4.5 HP CONVERSION Serum mg/dL Specimen (Source) Anatomical Collection Method Collection Time Re ceived Time Location / / Volume Laterality 09/20/2010 1:45 PM [facility] Terrence Hernandez MD LAB_1 Performing Organization Address City/State/ZIP Code Phon e Number HP CONVERSION (ABNORMAL) Creatinine / GFR (09/20/2010 1:45 PM [facility]) athologist Signature Creatinine 1.3 0.4 - 1.3 HP CONVERSION Serum mg/dL Est GFR >60 >60 HP CONVERSION Am mL/min/1.7 Est GFR Non-Afr 59 (L) >60 HP CONVERSION Am mL/min/1.7 Comment: Normal>60, moderate decrease 30 - 59, se alexia decrease 15 - 29, renal failure <15 mL/min/1.73 m2 NOTE: ??Choose the eGFR result above jamie ropriate for the race of the patient. Specimen (Source) Anatomical Collection Method Collection Time Re ceived Time Location / / Volume Laterality 09/20/2010 1:45 PM [facility] Terrence Hernandez MD LAB_1 Performing Organization Address [facility]/ZIP Code Phon e Number HP CONVERSION Calcium (09/20/2010 1:45 PM [facility]) athologist Signature Calcium 9.8 8.5 - 10.5 HP CONVERSION mg/dL Specimen (Source) Anatomical Collection Method Collection Time Re ceived Time Location / / Volume Laterality 09/20/2010 1:45 PM [facility] Terrence Hernandez MD LAB_1 Performing Organization Address [facility]/ZIP Code Phon e Number HP CONVERSION BUN (09/20/2010 1:45 PM [facility]) athologist Signature Blood Urea 23 5 - 26 HP CONVERSION Nitrogen mg/dL Specimen (Source) Anatomical Collection Method Collection Time Re ceived Time Location / / Volume Laterality 09/20/2010 1:45 PM [facility] Terrence Hernandez MD LAB_1 Performing Organization Address City/State/ZIP Code Phon e Number HP CONVERSION Albumin (09/20/2010 1:45 PM [facility]) athologist Signature Albumin 4.8 3.4 - 5.0 HP CONVERSION g/dL Specimen (Source) Anatomical Collection Method Collection Time Re ceived Time Location / / Volume Laterality 09/20/2010 1:45 PM [facility] Terrence Hernandez MD LAB_1 Performing Organization Address City/State/ZIP Code Phon e Number HP CONVERSION documented in this encounter Visit Diagnoses Not on filedocumented in this encounter Care Teams Screening Specialist Relationship Specialty Start Date End Date Hansa Lewis APRN, SCREENER AND BLENDER PCP - General 10/22/10 11/30/12 [id number] [address] [place] [id number] documented as of this encounter
--- OUTSIDE RECORDS SUMMARY | 2022-04-16 08:11 | XMS_ITS | Encounter Summary ---
:1960 Author Organization [facility] Address [address] [place] [address] Care Team Providers Name Role Phone LiliaHuseyin churchjoao NGUYỄN CNP Primary Care Provider [phone] Encounter Details Date Type Department Care Team Description 11/13/2010 PN Conversion Only [place] [address] [address] [address] [place], [place] [address] (Wo rk) Social History Tobacco Use Types Packs/Day Years Used Date Smoking Tobacco: Never Assessed Sex Assigned at Date Recorded Not on file documented as of this encounter Plan of Treatment Not on filedocumented as of this encounter Procedures Procedure Name Priority Date/Time Associated Comments Diagnosis LIPID PANEL AND Routine 11/13/2010 12:10 Results for this DIRECT LDL(IF NEEDED) PM CDT proced ure are in the results section. CREATININE / GFR Routine 11/13/2010 12:10 Results for this PM CDT procedure are i n the results section. ELECTROLYTE PANEL Routine 11/13/2010 12:10 Result s for this PM CDT procedure are i n the results section. CALCIUM Routine 11/13/2010 12:10 Results for this PM CDT procedure are i n the results section. BUN Routine 11/13/2010 12:10 Results for this PM CDT procedure are i n the results section. documented in this encounter Results (ABNORMAL) Lipid Panel and Direct LDL(If Needed) (11/13/2010 12:10 PM CDT) [facility] gist Method Time Signature Cholesterol 152 0 - 200 HP CONVERSION mg/dL Triglycerides 106 0 - 149 HP CONVERSION mg/dL HDL Cholesterol 32 (L) >39 mg/dL HP CONVERSION Cholesterol/HDL 4.8 No normal HP CONVERSION Ratio Screen range LDL Calculated 99 19 - 130 HP CONVERSION mg/dL Length Of Fast 12 No normal HP CONVERSION range Specimen (Source) Anatomical Collection Method Collection Time Re ceived Time Location / / Volume Laterality 11/13/2010 12:10 PM CDT Terrence Hernandez MD LAB_1 Performing Organization Address City/State/[facility] Code Phon e Number HP CONVERSION Electrolyte Panel (11/13/2010 12:10 PM CDT) athologist Signature Sodium 141 137 - 147 HP CONVERSION mEq/L Potassium 4.4 3.5 - 5.2 HP CONVERSION mEq/L Chloride 108 98 - 110 HP CONVERSION mEq/L Bicarbonate 28 23 - 33 HP CONVERSION mmol/L Specimen (Source) Anatomical Collection Method Collection Time Re ceived Time Location / / Volume Laterality 11/13/2010 12:10 PM CDT Terrence Hernandez MD LAB_1 Performing Organization Address [facility] Phon e Number HP CONVERSION Creatinine / GFR (11/13/2010 12:10 PM CDT) athologist Signature Creatinine 1.0 0.4 - 1.3 HP CONVERSION Serum mg/dL Est GFR >60 >60 HP CONVERSION Am mL/min/1.7 Est GFR Non-Afr >60 >60 HP CONVERSION Am mL/min/1.7 Comment: Normal>60, moderate decrease 30 - 59, se alexia decrease 15 - 29, renal failure <15 mL/min/1.73 m2 NOTE: ??Choose the eGFR result above jamie ropriate for the race of the patient. Specimen (Source) Anatomical Collection Method Collection Time Re ceived Time Location / / Volume Laterality 11/13/2010 12:10 PM CDT Terrence Hernandez MD LAB_1 Performing Organization Address [facility] Phon e Number HP CONVERSION Calcium (11/13/2010 12:10 PM CDT) athologist Signature Calcium 9.4 8.5 - 10.5 HP CONVERSION mg/dL Specimen (Source) Anatomical Collection Method Collection Time Re ceived Time Location / / Volume Laterality 11/13/2010 12:10 PM CDT Terrence Hernandez MD LAB_1 Performing Organization Address City/State/ZIP Code Phon e Number HP CONVERSION BUN (11/13/2010 12:10 PM CDT) P athologist Signature Blood Urea 19 5 - 26 HP CONVERSION Nitrogen mg/dL Specimen (Source) Anatomical Collection Method Collection Time Re ceived Time Location / / Volume Laterality 11/13/2010 12:10 PM CDT Terrence Hernandez MD LAB_1 Performing Organization Address City/State/ZIP Code Phon e Number HP CONVERSION documented in this encounter Visit Diagnoses Not on filedocumented in this encounter Care Teams Crane Service Technician Relationship Specialty Start Date End Date Hansa Lewis APRN, DISCOVERY GUIDE PCP - General 10/22/10 11/30/12 [address] [address] [place] [id number] documented as of this encounter
--- OUTSIDE RECORDS SUMMARY | 2022-04-16 08:11 | XMS_ITS | Encounter Summary ---
:1960 Author Organization [facility] Address [address], [place] [address] Care Team Providers Name Role Phone Hansa Lewis APRN, CNP Primary Care Provider [phone] Reason for Visit Reason Comments Other Encounter Details Date Type Department Care Team Description 08/14/2010 Telephone [facility] 393 1 Nephrology Shankar Geronimo Other [address] [place] [address] Social History Tobacco Use Types Packs/Day Years Used Date Smoking Tobacco: Never Assessed Sex Assigned at Date Recorded Not on file documented as of this encounter Progress Notes Shankar Geronimo - 08/14/2010 4:29 PM CST Pt's calling requesting BP medication refills. Pt has refills through Aug and was instructed to call back when current refills run out and notified that medications will be refilled through next appt. Also requested lab paper to be sent to pt. Lab paper mailed. Created on 14Aug2010 4:29pm by SHANKAR BULL M CONDITIONER FILLING documented in this encounter Plan of Treatment Not on filedocumented as of this encounter Visit Diagnoses Not on filedocumented in this encounter Care Teams Dairy Tester Relationship Specialty Start Date End Date Hansa Lewis APRN, CNP PCP - General 10/22/10 11/30/12 [address] [place] [address] [id number] documented as of this encounter
--- OUTSIDE RECORDS SUMMARY | 2022-04-16 08:11 | XMS_ITS | Encounter Summary ---
:1960 [address] [facility] Address [address], [place] [address] Care Team Providers Name Role Phone Hansa Lewis APRN, CNP Primary Care Provider [phone] Reason for Visit Reason Comments Other Encounter Details Date Type Department Care Team Description 09/08/2010 Telephone Specialty Center 393 1 Nephrology Center, Message Other [address] [place] [address] Social History Tobacco Use Types Packs/Day Years Used Date Smoking Tobacco: Never Assessed Sex Assigned at Date Recorded Not on file documented as of this encounter Progress Notes Center, Message - 09/08/2010 9:59 AM CST PRESCRIPTION REFILL Please provide enough refills to last until patient's next visit. Comment:-Last appt 09-13-09; next 09-25-10 Pharmacy Seq #:-[phone] [facility]Phone[facility]ax[facility]fx [phone] [facility]:-David Drug Name/Strength:-Prinivil 10MG Tab Sig: Dose/Route/Freq:-1 tab daily Quantity & Last Fill:-#30 08-09-10 *ECODE~PNRF Created on 08Sep2010 9:59am by BALJIT BARRAZA M On 08Sep2010 11:11am REYNOLD JOHNSON wrote: Qty 30 with 0 refills faxed into above pharmacy per standing order. Acknowledged by EVA HERRING on 2:56pm RAL SERVICE TECHNICIAN documented in this encounter Plan of Treatment Not on filedocumented as of this encounter Visit Diagnoses Not on filedocumented in this encounter Care Teams Spring Maker Relationship Specialty Start Date End Date Hansa Lewis, DELMA, GLUE LINE OPERATOR PCP - General 10/22/10 11/30/12 [address] [place] [id number] documented as of this encounter
--- OUTSIDE RECORDS SUMMARY | 2022-04-16 08:11 | XMS_ITS | Encounter Summary ---
:1960 Author Organization [facility] Address [address] [address] Care Team Providers Name Role Phone Hansa Lewis APRN, CNP Primary Care Provider [phone] Encounter Details Date Type Department Care Team Description 11/01/2011 Lab Visit [facility] Unspecified essential hypert ension; [address] Chronic kidney disease (CKD) , stage III (moderate); [place] [address] Esophageal reflux [phone] Social History Tobacco Use Types Packs/Day Years Used Date Smoking Tobacco: Never Assessed Sex Assigned at Date Recorded Not on file documented as of this encounter Plan of Treatment Not on filedocumented as of this encounter Procedures Procedure Name Priority Date/Time Associated Diagnosis Comme nts ALBUMIN/CREAT RATIO Routine 11/01/2011 1:46 PM Chronic kidney Results for this CDT disease (CKD), stage procedu re are in III (moderate) (HR) the res ults section. VITAMIN D Routine 11/01/2011 1:15 PM Chronic kidney Results for this 25-HYDROXY, TOTAL CDT disease (CKD), stage pr ocedure are in III (moderate) (HRC) the res ults section. CREATININE / GFR Routine 11/01/2011 1:15 PM Unspecified essent ial Results for this CDT hypertension (HR C) procedure are in Chronic kidney the results disease (CKD), stage section . III (moderate) (HR) ELECTROLYTE PANEL Routine 11/01/2011 1:15 PM Unspecified essen tial Results for this CDT hypertension (HR C) procedure are in Chronic kidney the results disease (CKD), stage section . III (moderate) (HRC) MAGNESIUM Routine 11/01/2011 1:15 PM Esophageal reflux Resu lts for this CDT procedure are i n the results section. PHOSPHORUS Routine 11/01/2011 1:15 PM Chronic kidney Results for this CDT disease (CKD), stage procedu re are in III (moderate) (HRC) the res ults section. CALCIUM Routine 11/01/2011 1:15 PM Chronic kidney Results for this CDT disease (CKD), stage procedu re are in III (moderate) (HRC) the res ults section. BUN Routine 11/01/2011 1:15 PM Unspecified essential Results for this CDT hypertension (HR C) procedure are in Chronic kidney the results disease (CKD), stage section . III (moderate) (HR) documented in this encounter Results Microalb/Creat Ratio (11/01/2011 1:46 PM CDT) Analysis Performed At Patho logist Time Signature Microalbumin 45.0 mg/L HP CONVERSION Urine U Creat Random 169 mg/dL HP CONVERSION Microalbumin/Crea 26.6 0.0 - 30.0 HP CONVERSI ON tinine Ratio Specimen Anatomical Collection Method Collection Time Receive d Time (Source) Location / / Volume Laterality 11/01/2011 1:46 PM 2 4:04 CDT PM CDT Terrence Hernandez MD LAB_1 Performing Organization Address City/[facility] Code Phon e Number HP CONVERSION Calcium (11/01/2011 1:15 PM CDT) athologist Signature Calcium 9.7 8.5 - 10.5 HP CONVERSION mg/dL Specimen Anatomical Collection Method Collection Time Receive d Time (Source) Location / / Volume Laterality 11/01/2011 1:15 PM 2 1:15 CDT PM CDT Narrative HP CONVERSION - 11/01/2011 1:49 PM CDT Performed at [facility], [address] [place], [place] [id number] Terrence Hernandez MD LAB_1 Performing Organization Address City/State/ZIP Code Phon e Number HP CONVERSION Phosphorus (11/01/2011 1:15 PM CDT) athologist Signature Phosphorus 3.3 2.5 - 4.5 HP CONVERSION Serum mg/dL Specimen Anatomical Collection Method Collection Time Receive d Time (Source) Location / / Volume Laterality 11/01/2011 1:15 PM 2 1:15 CDT PM CDT Narrative HP CONVERSION - 11/01/2011 1:49 PM CDT Performed at [facility], [address] [place] [address] Terrence Hernandez MD LAB_1 Performing Organization Address City/[facility] Phon e Number HP CONVERSION Vitamin D 25-Hydroxy, Total (11/01/2011 1:15 PM CDT) athologist [facility] Vitamin D 25 Oh 26 20 - 80 HP CONVERSION ng/mL Comment: Deficiency = <20 Adequate ??= 20-29 Preferred = 30-50 Uncertain safety = 51-80 High = >80 Specimen Anatomical Collection Method Collection Time Receive d Time (Source) Location / / Volume Laterality 11/01/2011 1:15 PM 2 4:02 CDT PM CDT Terrence Hernandez MD LAB_1 Performing Organization Address [facility] Phon e Number HP CONVERSION Magnesium (11/01/2011 1:15 PM CDT) athologist [facility] Magnesium 2.2 1.5 - 2.4 HP CONVERSION mg/dL Specimen Anatomical Collection Method Collection Time Receive d Time (Source) Location / / Volume Laterality 11/01/2011 1:15 PM 2 1:15 CDT PM CDT Narrative HP CONVERSION - 11/01/2011 1:49 PM CDT Performed at [facility], [address] [place] [address] Terrence Hernandez MD LAB_1 Performing Organization Address City/[facility] Phon e Number HP CONVERSION Electrolyte Panel (11/01/2011 1:15 PM CDT) athologist [facility] Sodium 138 137 - 147 HP CONVERSION mEq/L Potassium 3.8 3.5 - 5.2 HP CONVERSION mEq/L Chloride 106 98 - 110 HP CONVERSION mEq/L Bicarbonate 28 23 - 33 HP CONVERSION mmol/L Specimen Anatomical Collection Method Collection Time Receive d Time (Source) Location / / Volume Laterality 11/01/2011 1:15 PM 2 1:15 CDT PM CDT Narrative HP CONVERSION - 11/01/2011 1:49 PM CDT Performed at [facility], [address] [place] [address] Terrence Hernandez MD LAB_1 Performing Organization Address [facility] Phon e Number HP CONVERSION (ABNORMAL) Creatinine / GFR (11/01/2011 1:15 PM CDT) Analysis Performed At Patho logist Time Signature Creatinine 1.4 (H) 0.4 - 1.3 HP CONVERSION Serum mg/dL Est GFR >60 >60 HP CONVERSION Am mL/min/1.7 3m2 Est GFR Non-Afr 54 (L) >60 HP CONVERSION Am mL/min/1.7 3m2 Comment: Normal>60, moderate decrease 30 - 59, se alexia decrease 15 - 29, renal failure <15 mL/min/1.73 m2 NOTE: ??Choose the eGFR result above jamie ropriate for the race of the patient. Specimen Anatomical Collection Method Collection Time Receive d Time (Source) Location / / Volume Laterality 11/01/2011 1:15 PM 2 1:15 CDT PM CDT Narrative HP CONVERSION - 11/01/2011 1:49 PM CDT Performed at [facility], [address] [place] [address] Terrence Hernandez MD LAB_1 Performing Organization Address [facility] Phon e Number HP CONVERSION BUN (11/01/2011 1:15 PM CDT) athologist Signature Blood Urea 23 5 - 26 HP CONVERSION Nitrogen mg/dL Specimen Anatomical Collection Method Collection Time Receive d Time (Source) Location / / Volume Laterality 11/01/2011 1:15 PM 2 1:15 CDT PM CDT Narrative HP CONVERSION - 11/01/2011 1:49 PM CDT Performed at [facility], [address] [place] [address] Terrence Hernandez MD LAB_1 Performing Organization Address [facility] Phon e Number HP CONVERSION documented in this encounter Visit Diagnoses Diagnosis Unspecified essential hypertension (HRC) Unspecified essential hypertension Chronic kidney disease (CKD), stage III (moderate) (HRC) Chronic kidney disease, Stage III (moder ate) Esophageal reflux documented in this encounter Care Teams Mother Tester Relationship Specialty Start Date End Date Hansa Lewis APRN, EXECUTIVE ASSISTANT PCP - General 10/22/10 11/30/12 [address] [place] [place] [id number] documented as of this encounter
--- OUTSIDE RECORDS SUMMARY | 2022-04-16 08:11 | XMS_ITS | Encounter Summary ---
:1960 Author [facility] Address [address] [facility] [place] [address] Care Team Providers Name Role Phone Hansa Lewis APRN, CNP Primary Care Provider [phone] Encounter Details Date Type Department Care Team Description 11/18/2010 PN Conversion Only Specialty Center 3931 Terrence Hernandez MD Nephrology [address] [facility] [address] [facility] [address] [place] [address] [phone] (Wo rk) Social History Tobacco Use Types Packs/Day Years Used Date Smoking Tobacco: Never Assessed Sex Assigned at Date Recorded Not on file documented as of this encounter Plan of Treatment Not on filedocumented as of this encounter Visit Diagnoses Not on filedocumented in this encounter Care Teams Climatology Professor Relationship Specialty Start Date End Date Hansa Lewis APRN, CNP PCP - General 10/22/10 11/30/12 [address] [place] [address] documented as of this encounter
--- OUTSIDE RECORDS SUMMARY | 2022-04-16 08:11 | XMS_ITS | Encounter Summary ---
:1960 Author [facility] Address [address], [place] [address] Care Team Providers Name Role Phone Hansa Lewis APRN, CNP Primary Care Provider [phone] Reason for Visit Reason Comments Other Encounter Details Date Type Department Care Team Description 08/09/2010 Telephone Specialty Center 393 1 Nephrology Center, Message Other [address] [place] [address] Social History Tobacco Use Types Packs/Day Years Used Date Smoking Tobacco: Never Assessed Sex Assigned at Date Recorded Not on file documented as of this encounter Progress Notes Stefany Espinosa - 08/09/2010 2:36 PM CST PRESCRIPTION REFILL Please provide enough refills to last until patient's next visit. Comment:- 09-13-09 fv none Pharmacy Seq #:- [phone] Pharmacy Name-Phone[facility]ax[facility] p[facility]f [phone] or City:- [place] Clinician Name:- David Drug Name/Strength:- Lisinopril 10mg tab Sig: Dose/Route/Freq:- take 1 by mouth daily Quantity & Last Fill:- 07-10-10 *ECODE~PNRF Created on 09Aug2010 2:36pm by STEFANY GUERRA On 09Aug2010 3:01pm REYNOLD JOHNSON wrote: Qty 30 with 0 refills faxed into above pharmacy per stading order with note stating patient needs to schedule follow up visit for more refills. Acknowledged by EVA HERRING on 12:11pm NATION INSPECTOR documented in this encounter Plan of Treatment Not on filedocumented as of this encounter Visit Diagnoses Not on filedocumented in this encounter Care Teams Door Clamp Operator Relationship Specialty Start Date End Date Hansa Lewis APRN, PROOF INSPECTOR PCP - General 10/22/10 11/30/12 [address] [address] [place] [address] documented as of this encounter
--- OUTSIDE RECORDS SUMMARY | 2022-04-16 08:11 | XMS_ITS | Encounter Summary ---
:1960 Author Organization [facility] Address [address] [address] Care Team Providers Name Role Phone Hansa Lewis APRN, CNP Primary Care Provider [phone] Reason for Visit Reason Comments Refill Encounter Details Date Type Department Care Team Description 10/10/2011 Refill Specialty Center [address] Newton Hernandez MD Refill Nephrology [address] [facility] [address] [place] [address] [place], [place] [address] [phone] Social History Tobacco Use Types Packs/Day Years Used Date Smoking Tobacco: Never Assessed Sex Assigned at Date Recorded Not on file documented as of this encounter Nursing Notes Ingrid Geronimo - 10/10/2011 2:01 PM CDT Medication on discontinued medlist, last dictation on 10/08/11 states that pt is taking medication Atenolol 25mg 1 tab daily. Ok to refill #90 with 3 refills? documented in this encounter Plan of Treatment Not on filedocumented as of this encounter Visit Diagnoses Not on filedocumented in this encounter Care Teams Cigarette Book Maker Relationship Specialty Start Date End Date Hansa Lewis APRN, CNP PCP - General 10/22/10 11/30/12 [address] [place] [id number] documented as of this encounter
--- OUTSIDE RECORDS SUMMARY | 2022-04-16 08:11 | XMS_ITS | Encounter Summary ---
:1960 Author Organization [facility] Address [address] [address] Care Team Providers Name Role Phone Hansa Lewis YARED NGUYỄN Primary Care Provider [phone] Reason for Visit Reason Comments Medication Questions FATIGUE Encounter Details Date Type Department Care Team Description 12/03/2011 Telephone Specialty Center [address] Newton Hernandez MD Medication Questions; Nephrology [address] [facility] FATIGUE [address] [facility] [address] [place] [phone] (Wo rk) Social History Tobacco Use Types Packs/Day Years Used Date Smoking Tobacco: Never Assessed Sex Assigned at Date Recorded Not on file documented as of this encounter Nursing Notes Ingrid Geronimo - 12/03/2011 1:08 PM CDT The patient has been notified of this information and all questions answered. Ingrid Geronimo - 12/03/2011 12:58 PM CDT Message left for patient to return my call. Terrence Hernandez MD - 12/03/2011 12:50 PM CDT I don't think this is caused by his lisinopril but it is okay for him stop his lisinopril until we get the labs. I will order labs. Have him go to lab. Ingrid Geronimo - 12/03/2011 10:51 AM CDT Pt's Veronica calling, states that pt has been having muscle cramps primarily in his legs upon excertion, fatigues easily and has yellowing of his eyes when active. Veronica states this started approx. 7-10 days after changing his medications, Atenolol dc'd and Lisinopril doubled to 40mg daily. Veronica states that side effects continue to get worse and they are unsure what to do. Veronica # [phone] or Pt cell # [phone] documented in this encounter Plan of Treatment Not on filedocumented as of this encounter Visit Diagnoses Diagnosis Proteinuria - Primary CKD (chronic kidney disease) stage 3, GF R 30-59 ml/min (HRC) Chronic kidney disease, Stage III (moder ate) documented in this encounter Care Teams Fractionation Supervisor Relationship Specialty Start Date End Date Hansa Lewis APRN, BEAVER TRAPPER PCP - General 10/22/10 11/30/12 [address] [place] [address] documented as of this encounter
--- OUTSIDE RECORDS SUMMARY | 2022-04-16 08:11 | XMS_ITS | Encounter Summary ---
:1960 Author Organization [employer] Address [address] [address] Care Team Providers Name Role Phone Hansa Lewis APRN, CNP Primary Care Provider [phone] Encounter Details Date Type Department Care Team Description 09/25/2011 Lab Visit [facility] Chronic kidney disease, [address] [facility] stage III (moderate) [place] [address] Social History Tobacco Use Types Packs/Day Years Used Date Smoking Tobacco: Never Assessed Sex Assigned at Date Recorded Not on file documented as of this encounter Plan of Treatment Not on filedocumented as of this encounter Procedures Procedure Name Priority Date/Time Associated Comments Diagnosis ALBUMIN/CREAT RATIO Routine 09/25/2011 12:18 Chronic kidney Re sults for this PM [facility] disease, stage III procedure are in (moderate) (HRC) the results section. CREATININE / GFR Routine 09/25/2011 12:17 Chronic kidney Resul ts for this PM [employer] disease, stage III procedure are in (moderate) (HRC) the results section. COMPLETE BLOOD Routine 09/25/2011 12:17 Chronic kidney Results for this COUNT-NO DIFF PM [facility] disease, stage III procedur e are in (moderate) (HRC) the results section. ELECTROLYTE PANEL Routine 09/25/2011 12:17 Chronic kidney Resu lts for this PM [facility] [employer] disease, stage III procedure are in (moderate) (HRC) the results section. PROTEIN, TOTAL Routine 09/25/2011 12:17 Chronic kidney Results for this (SERUM) PM [employer] disease, stage III procedure are in (moderate) (HRC) the results section. PHOSPHORUS Routine 09/25/2011 12:17 Chronic kidney Results f or this PM [employer] disease, stage III procedure are in (moderate) (HRC) the results section. CALCIUM Routine 09/25/2011 12:17 Chronic kidney Results f or this PM [employer]ATION disease, stage III procedure are in (moderate) (HRC) the results section. BUN Routine 09/25/2011 12:17 Chronic kidney Results f or this PM [employer] disease, stage III procedure are in (moderate) (HRC) the results section. ALBUMIN Routine 09/25/2011 12:17 Chronic kidney Results f or this PM [employer] disease, stage III procedure are in (moderate) (HRC) the results section. documented in this encounter Results Microalb/Creat Ratio (09/25/2011 12:18 PM [facility]) Analysis Performed At Patho logist Time Signature Microalbumin 11.0 mg/L HP CONVERSION Urine U Creat Random 108 mg/dL HP CONVERSION Microalbumin/Crea 10.2 0.0 - 30.0 HP CONVERSI ON tinine Ratio Specimen Anatomical Collection Method Collection Time Receive d Time (Source) Location / / Volume Laterality 09/25/2011 12:18 09/25/2011 4:52 PM [facility] PM [facility] Terrence Hernandez MD LAB_1 Performing Organization Address City/State/ZIP Code Phon e Number HP CONVERSION Hemogram/Plts (09/25/2011 12:17 PM [facility]) P athologist Signature White Blood Cell 7.8 3.8 - 11.0 HP CONVERSIO N Count k/cmm Red Blood Cell 4.65 4.20 - HP CONVERSION Count 5.90 m/cmm Hemoglobin 14.4 13.4 - HP CONVERSION 17.5 g/dL Hematocrit 40.7 39.0 - HP CONVERSION 51.0 % Mean Corpuscular 87.5 80.0 - HP CONVERSION Volume 100.0 fL RDW 12.1 11.0 - HP CONVERSION 15.0 % Platelet Count 266 140 - 450 HP CONVERSION k/cmm Specimen Anatomical Collection Method Collection Time Receive d Time (Source) Location / / Volume Laterality 09/25/2011 12:17 09/25/2011 PM [facility] 12:16 PM [facility] Narrative HP CONVERSION - 09/25/2011 12:27 PM [facility] Performed at [facility], [address] [place] [address] Terrence Hernandez MD LAB_1 Performing Organization Address [facility] Phon e Number HP CONVERSION Protein, Total (Serum) (09/25/2011 12:17 PM [facility]) athologist Signature Protein Total, 7.4 5.7 - 8.3 HP CONVERSION Serum g/dL Specimen Anatomical Collection Method Collection Time Receive d Time (Source) Location / / Volume Laterality 09/25/2011 12:17 09/25/2011 PM [facility] 12:16 PM [facility] Narrative HP CONVERSION - 09/25/2011 2:46 PM [facility] Performed at [facility], [address] [place] [address] Terrence Hernandez MD LAB_1 Performing Organization Address [facility] Phon e Number HP CONVERSION Phosphorus (09/25/2011 12:17 PM [facility]) athologist Signature Phosphorus 4.0 2.5 - 4.5 HP CONVERSION Serum mg/dL Specimen Anatomical Collection Method Collection Time Receive d Time (Source) Location / / Volume Laterality 09/25/2011 12:17 09/25/2011 PM [facility] 12:16 PM [facility] Narrative HP CONVERSION - 09/25/2011 2:46 PM [facility] [place] [address] Terrence Hernandez MD LAB_1 Performing Organization Address [facility] Phon e Number HP CONVERSION Electrolyte Panel (09/25/2011 12:17 PM [facility]) athologist Signature Sodium 140 137 - 147 HP CONVERSION mEq/L Potassium 3.9 3.5 - 5.2 HP CONVERSION mEq/L Chloride 108 98 - 110 HP CONVERSION mEq/L Bicarbonate 26 23 - 33 HP CONVERSION mmol/L Specimen Anatomical Collection Method Collection Time Receive d Time (Source) Location / / Volume Laterality 09/25/2011 12:17 09/25/2011 PM [facility] 12:16 PM [facility] Narrative HP CONVERSION - 09/25/2011 2:46 PM [facility] [place] [address] Terrence Hernandez MD LAB_1 Performing Organization Address [facility]/ZIP Code Phon e Number HP CONVERSION (ABNORMAL) Creatinine / GFR (09/25/2011 12:17 PM [facility]) athologist Signature Creatinine 1.3 0.4 - 1.3 HP CONVERSION Serum mg/dL Est GFR >60 >60 HP CONVERSION Am mL/min/1.7 3m2 Est GFR Non-Afr 59 (L) >60 HP CONVERSION Am mL/min/1.7 3m2 Comment: Normal>60, moderate decrease 30 - 59, se alexia decrease 15 - 29, renal failure <15 mL/min/1.73 m2 NOTE: ??Choose the eGFR result above jamie ropriate for the race of the patient. Specimen Anatomical Collection Method Collection Time Receive d Time (Source) Location / / Volume Laterality 09/25/2011 12:17 09/25/2011 PM [facility] 12:16 PM [facility]ATION Narrative HP CONVERSION - 09/25/2011 2:46 PM [facility] [place] [address] Terrence Hernanedz MD LAB_1 Performing Organization Address [facility] Phon e Number HP CONVERSION Calcium (09/25/2011 12:17 PM [facility]ATION) athologist Signature Calcium 9.7 8.5 - 10.5 HP CONVERSION mg/dL Specimen Anatomical Collection Method Collection Time Receive d Time (Source) Location / / Volume Laterality 09/25/2011 12:17 09/25/2011 PM [facility]ATION 12:16 PM [facility]ATION Narrative HP CONVERSION - 09/25/2011 2:46 PM [facility]ATION Performed at [facility], [address] [place] [address] Terrence Hernandez MD LAB_1 Performing Organization Address [facility] Phon e Number HP CONVERSION BUN (09/25/2011 12:17 PM [facility]) athologist Signature Blood Urea 15 5 - 26 HP CONVERSION Nitrogen mg/dL Specimen Anatomical Collection Method Collection Time Receive d Time (Source) Location / / Volume Laterality 09/25/2011 12:17 09/25/2011 PM [facility] 12:16 PM [facility]ATION Narrative HP CONVERSION - 09/25/2011 2:46 PM [facility]ATION Performed at [facility], [address] [place] [id number] Terrence Hernandez MD LAB_1 Performing Organization Address [facility] Phon e Number HP CONVERSION Albumin (09/25/2011 12:17 PM [facility]) athologist Signature Albumin 4.6 3.4 - 5.0 HP CONVERSION g/dL Specimen Anatomical Collection Method Collection Time Receive d Time (Source) Location / / Volume Laterality 09/25/2011 12:17 09/25/2011 PM [facility] 12:16 PM [facility]ATION Narrative HP CONVERSION - 09/25/2011 2:46 PM [facility]ATION Performed at [facility], [address] [place] [address] Terrence Hernandez MD LAB_1 Performing Organization Address [facility] Phon e Number HP CONVERSION documented in this encounter Visit Diagnoses Diagnosis Chronic kidney disease, stage III (moder ate) ([facility]) Chronic kidney disease, Stage III (moder ate) documented in this encounter Care Teams Histologist Technologist Relationship Specialty Start Date End Date Hansa Lewis APRN, BACKSHOE PERSON PCP - General 10/22/10 11/30/[address] [place] [address] [place] [id number] documented as of this encounter
--- OUTSIDE RECORDS SUMMARY | 2022-04-16 08:11 | XMS_ITS | Encounter Summary ---
:1960 Author Organization [facility] Address [address] [place] [address] Care Team Providers Name Role Phone Hansa Lewis APRN, CNP Primary Care Provider [phone] Encounter Details Date Type Department Care Team Description 10/08/2011 Notes/Orders [facility] [address] Hernandez MD Chronic kidney Nephrology [address] disease (CKD), stage [address] III (moderate) [place], [place] ([place]) [phone] (Wo rk) Social History Tobacco Use Types [...] ate) documented in this encounter Care Teams Temper Mill Operator Relationship Specialty Start Date End Date Hansa Lewis APRN, CNP PCP - General 10/22/10 11/30/12 [address] [place] [id number] documented as of this encounter
--- OUTSIDE RECORDS SUMMARY | 2022-04-16 08:11 | XMS_ITS | Encounter Summary ---
:1960 Author Organization [facility] Address [address] [place] [address] Care Team Providers Name Role Phone Md THEE Yepez Primary Care Provider Reason for Visit Reason Comments HYPERTENSION Encounter Details Date Type Department Care Team Description 12/02/2012 Telephone [facility]ty [facility] [address] Hernandez MD HYPERTENSION Nephrology [address] [place] [address] [facility] [address] [place] [address] [place], [place] [address] (Wo rk) Social History Tobacco Use Types Packs/Day Years Used Date Smoking Tobacco: Never Assessed Sex Assigned at Date Recorded Not on file documented as of this encounter Nursing Notes Jennifer Lopez LPN - 12/04/2012 3:47 PM CDT informed of message Terrence Hernandez MD - 12/04/2012 3:16 PM CDT he should take 12.5mg twice a day. Grace Hunter RN - 12/02/2012 4:01 PM CDT I called patient to have him read off what the label stated and he directed me to his at [phone]. She said the label did state that the label read Metoprolol 25mg 1/2 tab twice a day but she states the first time they got medication they got 60tables and tablet was very small so she and patient thought they were to take the whole tablet. Grace Hunter RN - 12/02/2012 3:56 PM CDT Patient called back and he is stating that he has been taking 12.5 mg tablets. I told patient that Idid not think medication came as 12.5. I then called pharmacy to check on this and they stated that medication does not come in 12.5mg that the tablet they dispensed would have been 25mg to be cut in half and taken twice. I then called patient back and informed him of this. Patient states well then Ihave already been taking one tab in the AM and one tab in the PM to equal 50mg. Patient will need new instructions for medication. Grace Hunter RN - 12/02/2012 2:45 PM CDT Patient did call back but he kept telling me that he takes this little pill and he takes two of themin am and one in the PM. I told him he needs to check the bottle to see what the Mg is on the bottle. Grace Hunter RN - 12/02/2012 2:22 PM CDT I called and left a message for patient to call us back. T Terrence Hernandez MD - 12/02/2012 2:12 PM CDT The good news is his creatinine is back to it's baseline. Have him increase his metoprolol to a fulltablet in the morning and in the evening 25mg bid. keep checking his BPs at home. If he gets dizzy or lightheaded he needs to let me know. Jennifer Lopez LPN - 12/02/2012 9:16 AM CDT calling states patient was in for lab draw yesterday and had blood pressure checked, first reading was 165/98 and second reading 10 minutes later was 145/98, patient did take Lopressor, patient cell phone is [phone] documented in this encounter Plan of Treatment Not on filedocumented as of this encounter Visit Diagnoses Not on filedocumented in this encounter Care Teams Pre Sales Architect Relationship Specialty Start Date End Date Md Yepez MD PCP - General 12/01/12 10/11/15 [place] [address] documented as of this encounter
--- OUTSIDE RECORDS SUMMARY | 2022-04-16 08:11 | XMS_ITS | Encounter Summary ---
:1960 Author Organization [facility] Address [address], [place] [address] Care Team Providers Name Role Phone Hansa Lewis YARED NGUYỄN Primary Care Provider [phone] Encounter Details Date Type Department Care Team Description 09/25/2010 Office Visit [facility]ty [facility] [address] Newton Hernandez MD Nephrology 3931 [facility] [address] [facility] [address] [place] [address] [id number] [phone] Social History Tobacco Use Types Packs/Day Years Used Date Smoking Tobacco: Never Assessed Sex Assigned at Date Recorded Not on file documented as of this encounter Last Filed Vital Signs Vital Sign Reading Time Taken Comments Blood Pressure 135/83 09/25/2010 9:17 AM SUPERVISOR CUSTOMER COMPLAINT SERVICE Pulse 44 09/25/2010 9:17 AM SUPERVISOR CUSTOMER COMPLAINT SERVICE Temperature - - Respiratory Rate - - Oxygen Saturation - - Inhaled Oxygen Concentration - - Weight 82.6 kg (181 lb 15.8 oz) 09/25/2010 9:17 AM SUPERVISOR CUSTOMER COMPLAINT SERVICE C: 82.6kg Height - - Body Mass Index 24.34 07/26/2008 2:24 PM SUPERVISOR CUSTOMER COMPLAINT SERVICE documented in this encounter Progress Notes Terrence Hernandez MD - 09/25/2010 12:01 AM CST NAME: JOSH MOSLEY MR#: [id number] ACCT: [id number] VISIT: [id number] DICTATING CLINICIAN: Terrence Hernandez MD CONFIRM #: [id number] LOC: 236 CLINIC PROGRESS NOTE DATE OF VISIT: 09/25/2010 : 1960 Mr. Mosley is a 50-year-old gentleman who returns to clinic today for his chronic kidney disease. The etiology of his chronic kidney disease is still unknown. It is likely to be hypertension. Overall, the patient has been feeling okay. He denies any other problems. He has been sleeping well. He denies any problems with dysuria, hematuria, or foaminess to his urine. His biggest complaint is that he does get fairly dizzy when he stands. This has been really worsening over the last few months. He does not fall, but he almost feels like he will. It goes away after a few seconds. There is no time of day that has any predilection and really nothing that makes it better or worse. Other than that, the patient notes that he has been feeling quite well. His energy level is good. 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 He denies any other chest pain, shortness of breath, or problems with his bowels or bladder. The remainder of his complete review of systems is unremarkable. OBJECTIVE: VITAL SIGNS: His initial blood pressure is 148/93. Repeat was 135/83 on the Omron average. GENERAL: This is a pleasant gentleman in no acute distress. He is alert and oriented x3. HEART: Regular. LUNGS: Clear. ABDOMEN: Soft, nontender, with positive bowel sounds. LOWER EXTREMITIES: Show no edema. Strength is normal. Affect is normal. Labs ordered by me in preparation for today's visit and reviewed by me today shows a white count of 9.7, hemoglobin 14.6. Platelet count is 277. Sodium is 138. Potassium is 3.9. Chloride is 105. Bicarbonate is 28. BUN is 23 with a creatinine of 1.3, giving him an estimated GFR of 59. Phosphorus is 3.2. Calcium is 9.8. PTH is 57. 25-vitamin D level is 39. Albumin-to- creatinine ratio is less than 10. This is a 50-year-old gentleman with hypertension and stage 3 chronic kidney disease which are quite stable. He also has bradycardia which is likely leading to orthostatic hypotension. 1. Hypertension and bradycardia: Given his problems with orthostatic symptoms and his bradycardia, I am going to have him cut back on the atenolol to 25 mg daily from 50 mg daily. Because he does have significant high blood pressure, I am going to increase his lisinopril from 10 to 20 mg. Will repeat his lab work in about 6 weeks. 2. Chronic kidney disease: The patient's creatinine is quite stable. It had been quite good for quite some time. I am going to increase his lisinopril today mainly for blood pressure as we are decreasing his atenolol. Will repeat his creatinine in 6 weeks' time to make sure it does not climb any higher. CC: CRISTINA ALEXIS [id number] [place] [address] AET:MEDQ C: CONFIRM #: [id number] documented in this encounter Plan of Treatment Not on filedocumented as of this encounter Visit Diagnoses Not on filedocumented in this encounter Care Teams Hand Rug Cleaner Relationship Specialty Start Date End Date Hansa Lewis APRN, PERCUSSION INSTRUMENT REPAIRER PCP - General 10/22/10 11/30/[address] [place] [address] documented as of this encounter
--- OUTSIDE RECORDS SUMMARY | 2022-04-16 08:11 | XMS_ITS | Encounter Summary ---
:1960 Author Organization [employer] Address [address] [place] [address] Care Team Providers Name Role Phone Hansa Lewis APRN, CNP Primary Care Provider [phone] Encounter Details Date Type Department Care Team Description 12/03/2011 Lab Visit [facility] Proteinuria; [address] [facility] CKD (chronic kidney disease) stage 3, GFR 30-59 ml/[place] [address] Social History Tobacco Use Types Packs/Day Years Used Date Smoking Tobacco: Never Assessed Sex Assigned at Date Recorded Not on file documented as of this encounter Plan of Treatment Not on filedocumented as of this encounter Procedures Procedure Name Priority Date/Time Associated Diagnosis Comme nts LIVER PANEL(HEPATIC Routine 12/03/2011 1:53 PM Proteinur ia Results for this FUNCTION PANEL) CDT CKD (chronic kidney proce dure are in disease) stage 3, the result s GFR 30-59 ml/min section. (HRC) BASIC METABOLIC Routine 12/03/2011 1:53 PM Proteinuria Results for this PANEL CDT CKD (chronic kidney procedur e are in disease) stage 3, the result s GFR 30-59 ml/min section. (HRC) documented in this encounter Results Liver Panel(Hepatic Function Panel) (12/03/2011 1:53 PM CDT) [facility] Method Time Signature Alk Phos 51 25 - 135 HP CONVERSION U/L Bilirubin Total 1.2 0.2 - 1.2 HP CONVERSION mg/dL Bilirubin, Direct 0.4 0.0 - 0.4 HP CONVERSIO N mg/dL Protein Total, Serum 6.9 5.7 - 8.3 HP CONVER KORIN g/dL Albumin 4.4 3.4 - 5.0 HP CONVERSION g/dL Aspartate 26 0 - 45 HP CONVERSION Aminotransferase U/L Alanine 29 4 - 55 HP CONVERSION Aminotransferase U/L Specimen Anatomical Collection Method Collection Time Receive d Time (Source) Location / / Volume Laterality 12/03/2011 1:53 PM 2 1:53 CDT PM CDT Narrative HP CONVERSION - 12/03/2011 3:24 PM CDT Performed at [facility], [address] [place] [address] Terrence Hernandez MD LAB_1 Performing Organization Address [facility] Phon e Number HP CONVERSION (ABNORMAL) Basic Metabolic Panel (12/03/2011 1:53 PM CDT) [facility] Method Time Signature Creatinine Serum 1.3 0.4 - 1.3 HP CONVERSION mg/dL Lab Glucose 111 (H) 60 - 100 HP CONVERSION mg/dL Bicarbonate 25 23 - 33 HP CONVERSION mmol/L Chloride 107 98 - 110 HP CONVERSION mEq/L Potassium 3.9 3.5 - 5.2 HP CONVERSION mEq/L Sodium 138 137 - 147 HP CONVERSION mEq/L Blood Urea 16 5 - 26 HP CONVERSION Nitrogen mg/dL Calcium 9.2 8.5 - 10.5 HP CONVERSION mg/dL Est GFR >60 >60 HP CONVERSION Am mL/min/1.7 3m2 Est GFR Non-Afr 58 (L) >60 HP CONVERSION Am mL/min/1.7 3m2 Comment: Normal>60, moderate decrease 30 - 59, se alexia decrease 15 - 29, renal failure <15 mL/min/1.73 m2 NOTE: ??Choose the eGFR result above jamie ropriate for the race of the patient. Specimen Anatomical Collection Method Collection Time Receive d Time (Source) Location / / Volume Laterality 12/03/2011 1:53 PM 2 1:53 CDT PM CDT Narrative HP CONVERSION - 12/03/2011 3:24 PM CDT Performed at [facility], [address] [place] [address] Terrence Hernandez MD LAB_1 Performing Organization Address [facility]/State/ZIP Code Phon e Number HP CONVERSION documented in this encounter Visit Diagnoses Diagnosis Proteinuria CKD (chronic kidney disease) stage 3, GF R 30-59 ml/min (HRC) Chronic kidney disease, Stage III (moder ate) documented in this encounter Care Teams Forensic Document Examiner Relationship Specialty Start Date End Date Hansa Lewis APRN, TAPPER BIT PCP - General 10/22/10 11/30/12 [address] [address] [id number] documented as of this encounter
--- OUTSIDE RECORDS SUMMARY | 2022-04-16 08:11 | XMS_ITS | Encounter Summary ---
:1960 [facility] Address [address] [place] [address] Care Team Providers Name Role Phone Hansa Lewis APRN, CNP Primary Care Provider [phone] Encounter Details Date Type Department Care Team Description 06/26/2011 [facility] [address] [place] [address] Social History Tobacco Use Types Packs/Day Years Used Date Smoking Tobacco: Never Assessed Sex Assigned at Date Recorded Not on file documented as of this encounter Plan of Treatment Not on filedocumented as of this encounter Visit Diagnoses Not on filedocumented in this encounter Care Teams Gis Physical Scientist Relationship Specialty Start Date End Date Hansa Lewis APRN, CNP PCP - General 10/22/10 11/30/12 [address] [facility] [place] [address] documented as of this encounter
--- OUTSIDE RECORDS SUMMARY | 2022-04-16 08:11 | XMS_ITS | Encounter Summary ---
:1960 Author Organization Code [employer] Address [address], [place] [address] Care Team Providers Name Role Phone Adelaida Lewiserica NGUYỄN CNP Primary Care Provider [phone] Reason for Visit Reason Comments Chronic Kidney Disease Encounter Details Date Type Department Care Team Description 10/08/2011 Office Visit Specialty Center 3931 Newton Hernandez MD Unspecified essential hypertension; Nephrology 3931 [facility] Chronic kidney disease (CKD) , stage III (moderate); [address] [facility] [address] [place] [address] [id number] (Wo rk) Social History Tobacco Use Types Packs/Day Years Used Date Smoking Tobacco: Never Assessed Sex Assigned at Date Recorded Not on file documented as of this encounter Last Filed Vital Signs Vital Sign Reading Time Taken Comments Blood Pressure 132/82 10/08/2011 9:30 AM CDT Pulse 49 10/08/2011 9:30 AM CDT Temperature - - Respiratory Rate - - Oxygen Saturation - - Inhaled Oxygen Concentration - - Weight 86.6 kg (191 lb) 10/08/2011 9:30 AM CDT Height - - Body Mass Index 25.2 07/02/2011 1:44 PM FOOD SERVICE SALES REPRESENTATIVES documented in this encounter Patient Instructions Patient InstructionsTerrence Hernandez MD - 10/08/2011 9:56 AM CDT 1. Tylenol (acetaminophen) good. 2. Avoid Ibuprofen, Aleve, Motrin, Advil, Naprosyn 3. Let me know if your headaches get better or worse off the Atenolol. 4. Take the vitamin d 1000 units daily from April to October. documented in this encounter Progress Notes Terrence Hernandez MD - 10/08/2011 1:18 PM CDT Progress Notes signed by Terrence Hernandez MD at 10/15/11 1039 Author: Terrence Hernandez MD Service: (none) Author Type: Physician Filed: 10/15/11 1039 Note Time: 10/08/11 1318 Status: Signed Dust Puller: Terrence Hernandez MD (Physician) NAME: JOSH MOSLEY MR#: [id number] CSN: [id number] AUTHENTICATING CLINICIAN: Terrence Hernandez MD CONFIRM #: [id number] LOC: 236 CLINIC PROGRESS NOTE DATE OF VISIT: 10/08/2011 : 1960 Mr. Mosley is a very pleasant 51-year-old gentleman who returns to clinic today for followup of his chronic kidney disease and hypertension. 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 He did have a kidney biopsy that unfortunately was nondiagnostic. Otherwise the patient states that he had been feeling quite well. Fact that he is feeling great. He did have problems with his right knee which was started here. That did get better after a couple weeks. Unfortunately he did take some ibuprofen for this. This was back in May, early June. He has not taken any since and his creatinine has been baseline based on today's labs. Work has been going well. He does report 1 episode where he got very diaphoretic and essentially passed out at a restaurant. He sat outside, got some fresh air, came back in and he was fine. He was getting up from a seated position to a standing position. He was also having some leg and back cramps at the same time. He does get this cramping in the legs and his back relatively frequently. He states he feels a little tired but he attributes this to some long days at work. His other complaint is headaches. He gets them he thinks when the seasons change and it becomes more humid. It is on his lateral temples bilaterally. Not associated with any visual changes. He gets them in morning and then again in the late afternoon. He has seen his eye doctor in the last year and has not had any problems with that. He denies any seasonal allergies. He denies any sinus problems. He states that the headaches are noticeable but really not incapacitating. REMAINDER OF HIS COMPLETE REVIEW OF SYSTEMS: Otherwise unremarkable. His antihypertensives currently include atenolol 25 mg, lisinopril 20 mg. He is also on omeprazole. OBJECTIVE: VITAL SIGNS: Blood pressure is 132/82, heart rate 49, weight 191 pounds. GENERAL: This is a pleasant gentleman in no acute distress. HEART: Regular. LUNGS: Clear. ABDOMEN: Soft, nontender with positive bowel sounds. LOWER EXTREMITIES: He has some trace edema on the right which is where he had his varicose veins repaired. No edema on the left. His affect is good. His strength is normal. He is also alert and oriented x3. LABS: Ordered by me in preparation for today's visit reviewed by me with the patient today shows a white count of 7.8, hemoglobin 14.4, platelet count 266, sodium 140, potassium 3.9, chloride of weight, bicarbonate 26, BUN 15, creatinine is 1.3, phosphorus is 4, calcium is 9.7, microalbumin/creatinine ratio is 10.2, albumin is 4.6. IMPRESSION AND PLAN: This is a 51-year-old gentleman with stage 3 chronic kidney disease, mild proteinuria in the past and hypertension. He has also had episodes of fainting and recurrent cramping. 1. Hypertension: I am going to cut the patient's atenolol actually and stop it today. I am going to increase his lisinopril to 40 mg daily. This is because of these orthostatic symptoms that he has been having and the bradycardia that he has. Hopefully, this will help for the patient to eat and hopefully no further episodes of syncope. The patient did not have palpitations at that episode of syncope. He said he would have gotten to the ER feet without anything other than just feeling faint. 2. Chronic Kidney Disease stage 3: His creatinine is stable. I did remind him that he does need to stay off the NSAIDs and the ibuprofen. He does not have proteinuria. He is not anemic. His calcium and phosphorus looked good. I will repeat his PTH and 25-vitamin D levels when I see him again in a year. I have asked him to take cholecalciferol 400 units daily. 3. Cramping and gastroesophageal reflux disease: Because the patient is on chronic omeprazole, I will check a magnesium level to see whether or not this may be contributing to his cramping. 15 minutes of the 25 minute visit is spent in counseling. CC: CRISTINA ALEXIS [id number] [place] [address] AET:MEDQ C: CONFIRM #: [id number] documented in this encounter Plan of Treatment Not on filedocumented as of this encounter Visit Diagnoses Diagnosis Unspecified essential hypertension (HRC) Unspecified essential hypertension Chronic kidney disease (CKD), stage III (moderate) (HRC) Chronic kidney disease, Stage III (moder ate) Esophageal reflux documented in this encounter Care Teams Parts Counterperson Relationship Specialty Start Date End Date Hansa Lewis APRN, MODEL MAKER FIBERGLASS PCP - General 10/22/10 11/30/[address] [place] [address] documented as of this encounter
--- OUTSIDE RECORDS SUMMARY | 2022-04-16 08:11 | XMS_ITS | Encounter Summary ---
:1960 Author Organization [employer] Address [address] [address] Care Team Providers Name Role Phone Adelaida Lewiserica NGUYỄN CNP Primary Care Provider [phone] Reason for Visit Reason Comments Chronic Kidney Disease HYPERTENSION Encounter Details Date Type Department Care Team Description 10/30/2012 Office Visit Specialty Center 3931 Newton Hernandez MD Unspecified essential hypertension; Nephrology 3931 [facility] Chronic kidney disease (CKD) , stage III (moderate); [address] [facility] [address] Other [place] [address] [id number] (Wo rk) Social History Tobacco Use Types Packs/Day Years Used Date Smoking Tobacco: Never Assessed Sex Assigned at Date Recorded Not on file documented as of this encounter Last Filed Vital Signs Vital Sign Reading Time Taken Comments Blood Pressure 141/91 10/30/2012 1:48 PM CDT Pulse 82 10/30/2012 1:48 PM CDT Temperature - - Respiratory Rate - - Oxygen Saturation - - Inhaled Oxygen Concentration - - Weight 88.6 kg (195 lb 4.8 oz) 10/30/2012 1:48 PM CDT Height - - Body Mass Index 25.77 07/02/2011 1:44 PM MANUFACTURING TEAM MEMBER documented in this encounter Patient Instructions Patient InstructionsTerrence Hernandez MD - 10/30/2012 2:13 PM CDT 1. Stop the omeprazole take ranitidine 150mg dialy. 2. Stop the lisinopril 3. Start metoprolol 12.5 mg bid. 4. Repeat your labs in a month. documented in this encounter Progress Notes Terrence Hernandez MD - 10/30/2012 4:57 PM CDT S: Mr. Bryce Mosley is a 52 y.o. who returns to clinic today for follow-up of his stage 3 CKD andHTN. The patient does not feel well overall. He has noticed some weight gain but really notices fatigue, and loss of stamina. He states he felt better on the atenolol. He does also note some loss of libido. His erectile dysfunction improved off the atenolol but he still remains with lack of libido. Healso feels a lack of muscle mass. He has never used tobacco and hasn't been anemic. He denies LE edema for the most part. Occasionally he has some in his right ankle but that he attributes to the varicosities that were removed some years ago. ROS: Negative except for that in the HPI. Meds: Reviewed by me in the EMR. Anti-HTN include: metoprolol 12.5mg bid lisinopril 40mg every day BP 141/91 Pulse 82 Wt 195 lb 4.8 oz (88.587 kg) Genl:healthy, alert, no distress, cooperative, smiling overweight HEENT:Sclera clear, anicteric CV: Regular rate and rhythm, S1, S2, no murmurs/rubs/gallops Lungs: clear to auscultation without wheezes or rales Abd:Soft, non-tender, normal bowel sounds. No bruits, organomegaly or masses. ext:No edema Lab Visit on 10/21/2012 Component Date Value Range Status ??? Blood Urea Nitrogen (mg/dL) 10/21/2012 22 5-26 Final ??? Creatinine Serum (mg/dL) 10/21/2012 1.7* 0.4-1.3 Final ? ? Est GFR Am (mL/min/1.73m2) 10/21/2012 52* >60 Final ? ? Est GFR Non-Afr Am (mL/min/1.73m2) 10/21/2012 43* >60 Final Comment: Normal>60, moderate decrease 30 - 59, severe decrease 15 - 29, renal failure <15 mL/min/1.73 m2 NOTE: Choose the eGFR result above appropriate for the race of the patient. A: Mr. Bryce Mosley is a 52 y.o. with stage 3 CKD, HTN, and fatigue. 1. Fatigue: i don't think it's related to his kidney function nor his lisinopril. I will check a testosterone level and also a TSH and CBC. 2. HTN: not quite controlled. Will add back metoprolol 12.5mg bid. Will stop the lisinopril for now.He will have his BP checked in about a month. 3. CKD 3: Worsening creatinine. Will stop the lisinopril and recheck his labs in a month off the lisinopril to see if this has any improvement. Return to Clinic in 6mo with labs. 15 of this 25 minute visit was spent in counseling and education documented in this encounter Plan of Treatment Not on filedocumented as of this encounter Visit Diagnoses Diagnosis Unspecified essential hypertension (HRC) Unspecified essential hypertension Chronic kidney disease (CKD), stage III (moderate) (HRC) Chronic kidney disease, Stage III (moder ate) Other malaise and fatigue documented in this encounter Care Teams Superintendent Drilling And Production Relationship Specialty Start Date End Date Hansa Lewis APRN, COLD WORK OPERATOR PCP - General 10/22/10 11/30/12 [address] [id number] documented as of this encounter
--- OUTSIDE RECORDS SUMMARY | 2022-04-16 08:11 | XMS_ITS | Encounter Summary ---
:1960 Author [facility] Address [address] [address] Care Team Providers Name Role Phone Hansa Lewis APRN, CNP Primary Care Provider [phone] Reason for Visit Reason Comments Other Encounter Details Date Type Department Care Team Description 10/08/2010 Telephone Specialty Center 393 1 Nephrology Center, Message Other [address] [place] [address] Social History Tobacco Use Types Packs/Day Years Used Date Smoking Tobacco: Never Assessed Sex Assigned at Date Recorded Not on file documented as of this encounter Progress Notes Center, Message - 10/08/2010 12:41 PM CDT PRESCRIPTION REFILL Please provide enough refills to last until patient's next visit. Comment:- 09/25/10 no fv Pharmacy Seq #:- [phone] [phone] or City:- [place] Clinician Name:Nilesh bravo Drug Name/Strength:- omeprazole 20mg cap Sig: Dose/Route/Freq:- 1 cap po daily Quantity & Last Fill:- 09/06/10 *ECODE~PNRF Created on 08Oct2010 12:41pm by TORIN BANKS On 09Oct2010 9:05am REYNOLD JOHNSON wrote: Qty 30 with 11 refills faxed into above pharmacy per standing order. Acknowledged by EVA BRAVO on 10:38am documented in this encounter Plan of Treatment Not on filedocumented as of this encounter Visit Diagnoses Not on filedocumented in this encounter Care Teams Asbestos Brake Lining Finisher Helper Relationship Specialty Start Date End Date Hansa Lewis APRN, MEDICAL PRACTITIONERS PCP - General 10/22/10 11/30/12 [address] [address] documented as of this encounter
--- OUTSIDE RECORDS SUMMARY | 2022-04-16 08:11 | XMS_ITS | Encounter Summary ---
:1960 Author Organization [employer] Address [address] [place] [address] Care Team Providers Name Role Phone LilialynnetteHansa APRN, CNP Primary Care Provider [phone] Encounter Details Date Type Department Care Team Description 10/21/2012 Lab Visit [facility] Chronic kidney disease [address] (CKD), stage III (moderate) [place] [address] Social History Tobacco Use Types Packs/Day Years Used Date Smoking Tobacco: Never Assessed Sex Assigned at Date Recorded Not on file documented as of this encounter Plan of Treatment Not on filedocumented as of this encounter Procedures Procedure Name Priority Date/Time Associated Diagnosis Comme nts CREATININE / GFR Routine 10/21/2012 6:26 PM Chronic kidney Res ults for this CDT disease (CKD), stage procedu re are in III (moderate) (HRC) the res ults section. BUN Routine 10/21/2012 6:26 PM Chronic kidney Results for this CDT disease (CKD), stage procedu re are in III (moderate) (HRC) the res ults section. documented in this encounter Results (ABNORMAL) Creatinine / GFR (10/21/2012 6:26 PM CDT) Analysis Performed At Patho logist Time Signature Creatinine 1.7 (H) 0.4 - 1.3 HP CONVERSION Serum mg/dL Est GFR 52 (L) >60 HP CONVERSION Am mL/min/1.7 3m2 Est GFR Non-Afr 43 (L) >60 HP CONVERSION Am mL/min/1.7 3m2 Comment: Normal>60, moderate decrease 30 - 59, se alexia decrease 15 - 29, renal failure <15 mL/min/1.73 m2 NOTE: ??Choose the eGFR result above jamie ropriate for the race of the patient. Specimen Anatomical Collection Method Collection Time Receive d Time (Source) Location / / Volume Laterality 10/21/2012 6:26 PM 3 8:13 CDT PM CDT Narrative HP CONVERSION - 10/21/2012 8:33 PM CDT Performed at [facility], [address] [place] [address] Terrence Hernandez MD LAB_1 Performing Organization Address [facility] Phon e Number HP CONVERSION BUN (10/21/2012 6:26 PM CDT) athologist Signature Blood Urea 22 5 - 26 HP CONVERSION Nitrogen mg/dL Specimen Anatomical Collection Method Collection Time Receive d Time (Source) Location / / Volume Laterality 10/21/2012 6:26 PM 3 8:13 CDT PM CDT Narrative HP CONVERSION - 10/21/2012 8:33 PM CDT Performed at [facility], [address] [place] [address] Terrence Hernandez MD LAB_1 Performing Organization Address City/[facility] Phon e Number HP CONVERSION documented in this encounter Visit Diagnoses Diagnosis Chronic kidney disease (CKD), stage III (moderate) (HRC) Chronic kidney disease, Stage III (moder ate) documented in this encounter Care Teams Polytechnic Registrar Relationship Specialty Start Date End Date Hansa Lewis APRN, OCCUPATIONAL REHABILITATION AIDE PCP - General 10/22/10 11/30/[address] [place] [address] [address] [id number] documented as of this encounter
--- OUTSIDE RECORDS SUMMARY | 2022-04-16 08:11 | XMS_ITS | Encounter Summary ---
:1960 [facility] Address [address], [place] [address] Care Team Providers Name Role Phone Hansa Lewis APRN, CNP Primary Care Provider [phone] Reason for Visit Reason Comments Refill Encounter Details Date Type Department Care Team Description 10/13/2012 Refill Specialty Center 3931 Newton Hernandez MD Refill Nephrology 3931 [facility] [address] [place] [address] [place], [place] [address] [phone] Social History Tobacco Use Types Packs/Day Years Used Date Smoking Tobacco: Never Assessed Sex Assigned at Date Recorded Not on file documented as of this encounter Nursing Notes Carmina Ventura - 10/13/2012 9:46 AM CDT last appt 10-08-11; next appt 10-30-12 documented in this encounter Plan of Treatment Not on filedocumented as of this encounter Visit Diagnoses Not on filedocumented in this encounter Care Teams Rig Builder Relationship Specialty Start Date End Date Hansa Lewis APRN, CNP PCP - General 10/22/10 11/30/12 [address] [id number] documented as of this encounter
--- OUTSIDE RECORDS SUMMARY | 2022-04-16 08:11 | XMS_ITS | Encounter Summary ---
:1960 Author Organization [facility] Address [address] [place] [address] Care Team Providers Name Role Phone Hansa Lewis APRN, CNP Primary Care Provider [phone] Reason for Visit Reason Comments Other Encounter Details Date Type Department Care Team Description 09/06/2010 Telephone Specialty Center 393 1 Nephrology Center, Message Other [address] [place] [address] Social History Tobacco Use Types Packs/Day Years Used Date Smoking Tobacco: Never Assessed Sex Assigned at Date Recorded Not on file documented as of this encounter Progress Notes Center, Message - 09/06/2010 9:34 AM CST PRESCRIPTION REFILL Please provide enough refills to last until patient's next visit. Comment:-Last appt 09-13-09; next 09-25-10 Pharmacy Seq #:-[phone] [facility]ax[facility]fx [phone] [facility] Name:-David Drug Name/Strength:-Prilosec 20MG Cap Sig: Dose/Route/Freq:-1 cap daily Quantity & Last Fill:-#30 08-06-10 *ECODE~PNRF Created on 06Sep2010 9:34am by BALJIT BARRAZA On 06Sep2010 11:37am SHANKAR BULL wrote: Qty 30 with no refills faxed to above pharmacy Acknowledged by EVA HERRING on 4:30pm INE ROOM ENGINEER documented in this encounter Plan of Treatment Not on filedocumented as of this encounter Visit Diagnoses Not on filedocumented in this encounter Care Teams Screw Machine Repairer Relationship Specialty Start Date End Date Hansa Lewis, DELMA, HIGH WORKER PCP - General 10/22/10 11/30/12 [address] [place] [place] [address] [id number] documented as of this encounter
--- OUTSIDE RECORDS SUMMARY | 2022-04-16 08:11 | XMS_ITS | Encounter Summary ---
:1960 Author Organization [employer] Address [address] [address] Care Team Providers Name Role Phone Adelaida Lewiserica NGUYỄN CNP Primary Care Provider [phone] Reason for Visit Reason Comments Refill Encounter Details Date Type Department Care Team Description 10/30/2012 Refill Specialty Center 3931 Newton Hernandez MD Refill Nephrology 3931 [facility] [address] [place] [address] [place], [place] [address] [phone] Social History Tobacco Use Types Packs/Day Years Used Date Smoking Tobacco: Never Assessed Sex Assigned at Date Recorded Not on file documented as of this encounter Nursing Notes Debbie Lopez LPN - 10/31/2012 9:03 AM CDT Patient notified. Terrence Hernandez MD - 10/30/2012 4:50 PM CDT It's OTC but I signed the order. Molly Driscoll - 10/30/2012 4:48 PM CDT had called earlier today asking for a refill on patient's omeprazole. is now noticing on his AVS that you stated he was to stop omeprazole and start ranitidine 150 mg daily. I have pended an order for you to sign. documented in this encounter Plan of Treatment Not on filedocumented as of this encounter Visit Diagnoses Not on filedocumented in this encounter Care Teams Ic Engineer Relationship Specialty Start Date End Date Hansa Lewis APRN, TAX COMMISSIONER PCP - General 10/22/10 11/30/12 [address] [place] [place] [address] [id number] documented as of this encounter
--- OUTSIDE RECORDS SUMMARY | 2022-04-16 08:11 | XMS_ITS | Encounter Summary ---
:1960 Author Organization [facility] Address [address], [place] [address] Care Team Providers Name Role Phone Hansa Lewis APRN, CNP Primary Care Provider [phone] Reason for Visit Reason Comments Refill Encounter Details Date Type Department Care Team Description 10/30/2012 Refill Specialty Center 3931 Newton Hernandez MD Refill Nephrology 3931 [facility] [address] [place] [address] [place] [address] [phone] Social History Tobacco Use Types Packs/Day Years Used Date Smoking Tobacco: Never Assessed Sex Assigned at Date Recorded Not on file documented as of this encounter Plan of Treatment Not on filedocumented as of this encounter Visit Diagnoses Not on filedocumented in this encounter Care Teams Hydrocrane Operator Relationship Specialty Start Date End Date Hansa Lewis APRN, CNP PCP - General 10/22/10 11/30/12 [address] [place] [id number] documented as of this encounter
--- OUTSIDE RECORDS SUMMARY | 2022-04-16 08:11 | XMS_ITS | Encounter Summary ---
:1960 Author Organization [employer] Address [address] [place] [address] Care Team Providers Name Role Phone Huseyin Lewisjoao NGUYỄN CNP Primary Care Provider [phone] Reason for Visit Reason Comments Other Encounter Details Date Type Department Care Team Description 09/28/2010 Telephone Specialty Center 393 1 Nephrology Center, Message Other [address] [place], [place] [address] Social History Tobacco Use Types Packs/Day Years Used Date Smoking Tobacco: Never Assessed Sex Assigned at Date Recorded Not on file documented as of this encounter Progress Notes Reynold Driscoll - 09/28/2010 10:47 AM CST Daughter calling states patient lost his Rx for lisinopril 20mg daily and says patient's atenolol was cut to 1/2 tab daily. The atenolol tabs are not scored and patient is having a hard time cutting the atenolol tabs in half. I faxed atenolol 25mg 1 tab daily and lisinopril 20mg daily Qty 90 [facility] Seq[phone]. Created on 28Sep2010 10:47am by REYNOLD DRISCOLL Acknowledged by EVA HERRING on 10:15am OR SOFTWARE DEVELOPMENT MANAGER documented in this encounter Plan of Treatment Not on filedocumented as of this encounter Visit Diagnoses Not on filedocumented in this encounter Care Teams Doctor Of Naprapathic Medicine Relationship Specialty Start Date End Date Hansa Lewis APRN, NURSERY TECHNICIAN PCP - General 10/22/10 11/30/12 [address] [place] [address] [address] documented as of this encounter
--- OUTSIDE RECORDS SUMMARY | 2022-04-16 08:11 | XMS_ITS | Encounter Summary ---
:1960 Author Organization [facility] [employer] Address [address], [place] [address] Care Team Providers Name Role Phone Hansa Lewis APRN, CNP Primary Care Provider [phone] Reason for Visit Reason Comments LEG PAIN Encounter Details Date Type Department Care Team Description 06/26/2011 Office Visit [facility] Internal Hansa Lewis Leg pa in (Primary Dx); Medicine YARED NGUYỄN Varicose veins [address] [place] [address] [place], [place] [phone] [address] (Wo rk) Social History Tobacco Use Types Packs/Day Years Used Date Smoking Tobacco: Never Assessed Sex Assigned at Date Recorded Not on file documented as of this encounter Last Filed Vital Signs Vital Sign Reading Time Taken Comments Blood Pressure 116/68 06/26/2011 8:08 AM JAVA WEB SERVICES DEVELOPER Pulse 60 06/26/2011 8:08 AM JAVA WEB SERVICES DEVELOPER Temperature 36.6 ??C (97.9 ??F) 06/26/2011 8:08 AM JAVA WEB SERVICES DEVELOPER Respiratory Rate - - Oxygen Saturation - - Inhaled Oxygen Concentration - - Weight 82.1 kg (181 lb) 06/26/2011 8:08 AM JAVA WEB SERVICES DEVELOPER Height - - Body Mass Index 24.21 07/26/2008 2:24 PM JAVA WEB SERVICES DEVELOPER documented in this encounter Patient Instructions Patient InstructionsSyKimber webb - 06/26/2011 8:46 AM CST Call [phone] for Vascular Surgery. Thank you for enrolling in [employer]. Please follow the instructions below to securely access your online medical record. [employer] allows you to send messages to your doctor, view your test results, renewyour prescriptions, schedule appointments, and more. How Do I Sign Up? 1. In your Internet browser, go to: [email or web address] 2. Click on the Sign Up Now link in the Sign In box. You will see the New Member Sign Up page. 3. Enter your [employer] Access Code exactly as it appears below. You will not need to use this code after you???ve completed the sign-up process. If you do not sign up before the expiration date, you must request a new code. [employer] Access Code: [email or web address] Expires: 07/26/11 08:46 AM 4. Enter your Social Security Number ([id number]) and Date of (mm/dd/yyyy) as indicated and click Submit. You will be taken to the next sign- up page. 5. Create a [employer] ID. This will be your [employer] login ID and cannot be changed, so think of one that is secure and easy to remember. 6. Create a [employer] password. You can change your password at any time. 7. Enter your Password Reset Question and Answer. This can be used at a later time if you forget your password. 8. Enter your e-mail address. You will receive e-mail notification when new information is availablein [employer]. 9. Click Sign Up. You can now view your medical record. Additional Information If you have questions, you can call [phone] to talk to our [employer] staff. Remember, [employer] is NOT to be used for urgent needs. For medical emergencies, dial 911. WEB SERVICES DEVELOPER documented in this encounter Progress Notes Kimber Royal - 06/26/2011 3:20 PM CST left message with his that US negative for clot. WEB SERVICES DEVELOPER Hansa Lewis APRN, CNP - 06/26/2011 3:11 PM JAVA WEB SERVICES DEVELOPER Quick Note: please call PM to tell him that the Dopple us is negative for clot in rt leg WEB SERVICES DEVELOPER Hansa Lewis APRN, CNP - 06/26/2011 8:37 AM CST Progress Notes signed by CRISTINA Steele at 06/27/111457 Author: CRISTINA Steele Service: (none) Author Type: (none) Filed: 06/27/111457 Note Time: 06/26/11836 Status: Signed Billet Bed Operator: CRISTINA Steele (Nurse Practitioner) NAME: JOSH MOSLEY MR#: [id number] CSN: [id number] AUTHENTICATING CLINICIAN: CRISTINA Steele CONFIRM #: [id number] LOC: 506 CLINIC PROGRESS NOTE DATE OF VISIT: 06/26/2011 : 1960 A 51-year-old gentleman in clinic today with concerns regarding right leg varicosities. HISTORY OF PRESENT ILLNESS: Angely had a vein ligation in the year 1999. He had had some tenderness and aching in the right lower extremity below the knee and he says subsequently he did very well. However, there has been an increase over the last several months of varicosity swelling involving the same right lower extremity. He also describes having had a superficial clot at the time of his original ligation. His primary concern today, however, is that the day before and he had severe right medial thigh pain. It extended from about the knee to the midthigh. He said it was not positional, there was no redness. No swelling. No induration. He said it felt like it was very deep and he was concerned that this could be a deep vein thrombosis. Subsequently, however, he said the pain has subsided. Currently he is experiencing no pain in the right medial thigh, some aching below the knee as the superficial varicosities. He has had no leg swelling. Although the pain he said was severe enough so that when he walked he had a buckling sensation of the right leg over Thanksgiving. He said he has no pain at all with walking now. PAST MEDICAL HISTORY: Gastroesophageal reflux disease, hyperlipidemia, fatty liver, hypertension and chronic kidney disease stage 3. MEDICATIONS: Atenolol 25 mg daily, vitamin D, lisinopril 20 mg daily, omeprazole 20 mg daily. MEDICATION ALLERGIES: Codeine. SOCIAL HISTORY: . OBJECTIVE: VITAL SIGNS: Blood pressure 116/68, pulse 60, temperature 97.8, weight 181. GENERAL: Pat appears well, in no obvious distress. Alert and oriented x3. SKIN: Is warm, dry and non-diaphoretic. EXTREMITIES: Examining his right lower extremity there is no tenderness, swelling, redness or induration of the right medial thigh region. He does have superficial varicosities of the right lower extremity with no appearance of ulceration, induration, increased warmth or redness. Pedal pulses palpable bilaterally and strong. No edema of the lower extremities. ASSESSMENT: 1. Varicose veins. 2. Right medial thigh pain. PLAN: He is going to have a Doppler ultrasound done today. He is referred to the vascular surgeon for consultation regarding the right lower extremity superficial varicosities as well. Pat is in agreement with this plan. LAE:MEDQ C: CONFIRM #: [id number] WEB SERVICES DEVELOPER documented in this encounter Miscellaneous Notes Miscellaneous - 08/31/2016 9:58 PM CSTNotes Recorded by CRISTINA Steele on 06/26/2011 at 3:11 PMplease call PM to tell him that the Dopple us is negative for clot in rt leg WEB SERVICES DEVELOPER documented in this encounter Plan of Treatment Not on filedocumented as of this encounter Procedures Procedure Name Priority Date/Time Associated Diagnosis Comme nts US LOWER EXTREMITY Routine 06/26/2011 11:32 AM Leg pain Re sults for this RT VENOUS DOPPLER JAVA WEB SERVICES DEVELOPER procedure are in the results section. documented in this encounter Results US Lower Extremity Rt Venous Doppler (06/26/2011 11:32 AM JAVA WEB SERVICES DEVELOPER) Anatomical Region Laterality Modality Vascular, Leg Other Specimen (Source) Anatomical Location Collection Method / Collectio n Time Received Time / Laterality Volume Impressions 06/26/2011 12:06 PM JAVA WEB SERVICES DEVELOPER IMPRESSION: No deep venous thrombosis detected in the right lower extremity. Narrative 06/26/2011 12:06 PM JAVA WEB SERVICES DEVELOPER COMPARISON: None. TECHNIQUE: The deep veins of the right l ower extremity to include the common femoral, superficial femoral, and popliteal veins are negative for deep venous thrombosis. ??The calf v eins were fully compressible, where seen. Procedure Note Brenton Toney MD - 01/06/2016For matting of this note might be different from the original. COMPARISON: None. TECHNIQUE: The deep veins of the right l ower extremity to include the common femoral, superficial femoral, and popliteal veins are negative for deep venous thrombosis. The calf vei ns were fully compressible, where seen. IMPRESSION IMPRESSION: No deep venous thrombosis de tected in the right lower extremity. Transcriptions Brenton Toney MD - 08/31/2016 9: 58 PM CSTNotes Recorded by CRISTINA Steele on 06/26/2011 at 3:11 PMplease call PM to tell him that the Dopple us is negative for clot in rt leg Hansa Lewis APRN, HAIR DESIGNER RAD US documented in this encounter Visit Diagnoses Diagnosis Leg pain - Primary Pain in limb Varicose veins Asymptomatic varicose veins documented in this encounter Care Teams Resistance Welding Machine Operator Relationship Specialty Start Date End Date Hansa Lewis APRN, HAIR DESIGNER PCP - General 10/22/10 11/30/12 [id number] [id number] documented as of this encounter
--- OUTSIDE RECORDS SUMMARY | 2022-04-16 08:11 | XMS_ITS | Encounter Summary ---
:1960 Author Organization [employer] Address [address], [place] [address] Care Team Providers Name Role Phone Johsua Hansajoao NGUYỄN CNP Primary Care Provider [phone] Reason for Visit Reason Comments LEG PAIN Encounter Details Date Type Department Care Team Description 07/02/2011 Initial Consult [facility], Varicose veins of [facility] Lemuel Foster MD lower extremities [facility] [address] [place], [place] (Primary Dx) [facility] [address] [place] [address] [phone] Social History Tobacco Use Types Packs/Day Years Used Date Smoking Tobacco: Never Assessed Sex Assigned at Date Recorded Not on file documented as of this encounter Last Filed Vital Signs Vital Sign Reading Time Taken Comments Blood Pressure 129/85 07/02/2011 1:44 PM NETWORK PROGRAM MANAGER Pulse 67 07/02/2011 1:44 PM NETWORK PROGRAM MANAGER Temperature - - Respiratory Rate - - Oxygen Saturation - - Inhaled Oxygen Concentration - - Weight 85.1 kg (187 lb 9.6 oz) 07/02/2011 1:44 PM NETWORK PROGRAM MANAGER Height 185.4 cm (6' 1) 07/02/2011 1:44 PM NETWORK PROGRAM MANAGER Body Mass Index 24.75 07/02/2011 1:44 PM NETWORK PROGRAM MANAGER documented in this encounter Progress Notes Sulma Velasquez APRN, CNP - 07/31/2011 11:43 AM NETWORK PROGRAM MANAGER Quick Note: Results discussed during office visit 07/02/11. ORK PROGRAM MANAGER Lemuel Ryan MD - 07/02/2011 5:35 PM CST Progress Notes signed by Lemuel Ryan MD at 07/03/11 1021 Author: Lemuel Ryan MD Service: (none) Author Type: Physician Filed: 07/03/11 1021 Note Time: 07/02/115 Status: Signed School Examiner: Lemuel Ryan MD (Physician) NAME: JOSH MOSLEY MR#: [id number] CSN: [id number] AUTHENTICATING CLINICIAN: Lemuel Ryan MD CONFIRM #: [id number] LOC: 3588 CLINIC PROGRESS NOTE DATE OF VISIT: 07/02/2011 : 1960 The patient was seen 8 years ago and now returns with repeat symptomatic varicose veins. His left leg is unremarkable and has no problems. The right leg, however, has swelling in the foot and multiple varicosities in the right calf along with multiple spider veins in the calf and the foot. No real symptoms above the knee and no varicosities above the knee. He denies any chest pain or shortness of breath on his review of systems. An ultrasound today shows that the saphenous vein is competent to the knee and then absent from the knee to the ankle where it had been previously stripped. There is a thrombosed varicosity in the right calf. I have recommended that he continue to wear support stockings, and a prescription was given today. Should that fail, he should return to see me, at which point we would consider a secondary stab avulsion procedure to relieve his symptoms. MTS:MEDQ C: CONFIRM #: [id number] ORK PROGRAM MANAGER documented in this encounter Miscellaneous Notes Miscellaneous - 08/31/2016 9:17 PM CSTNotes Recorded by Sulma Salvador RN on 07/31/2011 at 11:43 AMResults discussed during office visit 07/02/11. ORK PROGRAM MANAGER documented in this encounter Plan of Treatment Not on filedocumented as of this encounter Procedures Procedure Name Priority Date/Time Associated Diagnosis Comme nts US LOWER Routine 07/02/2011 2:37 PM Varicose veins of Resu lts for this EXTREMITY RT NETWORK PROGRAM MANAGER lower extremities with proce dure are in VENOUS REFLUX other complications the res ults section. documented in this encounter Results US Lower Extremity Rt Venous Reflux (07/02/2011 2:37 PM NETWORK PROGRAM MANAGER) Anatomical Region Laterality Modality Vascular, Lower Extremity, Leg Other Specimen (Source) Anatomical Location Collection Method / Collectio n Time Received Time / Laterality Volume Impressions 07/31/2011 11:02 AM NETWORK PROGRAM MANAGER Superficial thrombophlebitis within a va ricose vein at the distal medial calf level. No evidence of right lower extremity moo p or superficial venous incompetence. No evidence of right lower extremity moo p venous thrombosis. Narrative 07/31/2011 11:02 AM NETWORK PROGRAM MANAGER Indication: varicose veins Note: Previous right greater saphenous v ein stripping in the calf:2003 A duplex ultrasound study using color fl ow was performed, to evaluate the right lower extremity veins for valv ular incompetence. RIGHT LOWER EXTREMITY The greater saphenous vein measures 5.6m m at the saphenofemoral junction. The greater saphenous vein is competent along its length. The greater saphenous vein is absent fro m the knee to the mid calf. There is evidence of superficial thrombo phlebitis within a varicose vein at the distal medial calf level. The saphenopopliteal junction and lesser saphenous vein are both competent. There is no evidence of incompetent perf orator veins at any level. The greater and lesser saphenous veins a re fully compressible with no evidence of thrombus. The deep venous system is competent and free of thrombus. The contralateral common femoral vein de monstrates phasic blood flow with no evidence of deep vein thrombosis . FINAL Procedure Note Lemuel Ryan MD - 01/06/2016Fo rmatting of this note might be different from the original. Indication: varicose veins Note: Previous right greater saphenous v ein stripping in the calf:2003 A duplex ultrasound study using color fl ow was performed, to evaluate the right lower extremity veins for valv ular incompetence. RIGHT LOWER EXTREMITY The greater saphenous vein measures 5.6m m at the saphenofemoral junction. The greater saphenous vein is competent along its length. The greater saphenous vein is absent fro m the knee to the mid calf. There is evidence of superficial thrombo phlebitis within a varicose vein at the distal medial calf level. The saphenopopliteal junction and lesser saphenous vein are both competent. There is no evidence of incompetent perf orator veins at any level. The greater and lesser saphenous veins a re fully compressible with no evidence of thrombus. The deep venous system is competent and free of thrombus. The contralateral common femoral vein de monstrates phasic blood flow with no evidence of deep vein thrombosis . FINAL IMPRESSION Superficial thrombophlebitis within a va ricose vein at the distal medial calf level. No evidence of right lower extremity moo p or superficial venous incompetence. No evidence of right lower extremity moo p venous thrombosis. Transcriptions Lemuel Ryan MD - 08/31/2016 9 :17 PM CSTNotes Recorded by Sulma Salvador RN on 07/31/2011 at 11:43 AMResults discussed during office visit 07/02/11. Lemuel Ryan MD RAD VASCULAR US documented in this encounter Visit Diagnoses Diagnosis Varicose veins of lower extremities with other complications - Primary documented in this encounter Care Teams Marketing Project Specialist Relationship Specialty Start Date End Date Hansa Lewis APRN, SAW FILER PCP - General 10/22/10 11/30/12 [address] [id number] documented as of this encounter
--- OUTSIDE RECORDS SUMMARY | 2022-04-16 08:11 | XMS_ITS | Encounter Summary ---
:1960 Author Organization [employer] Address [address] [place] [address] Care Team Providers Name Role Phone Md THEE Yepez Primary Care Provider Encounter Details Date Type Department Care Team Description 05/28/2013 Lab Visit [facility] Unspecified essential hypert ension; [address] [address] Chronic kidney disease (CKD) , stage III (moderate) [place] [address] Social History Tobacco Use Types Packs/Day Years Used Date Smoking Tobacco: Never Assessed Sex Assigned at Date Recorded Not on file documented as of this encounter Plan of Treatment Not on filedocumented as of this encounter Procedures Procedure Name Priority Date/Time Associated Diagnosis Comme nts ALBUMIN/CREAT RATIO Routine 05/28/2013 4:01 PM Unspecified ess ential Results for this BRAND INSPECTOR hypertension (HR C) procedure are in Chronic kidney the results disease (CKD), stage section . III (moderate) ([facility]) CREATININE / GFR Routine 05/28/2013 3:41 PM Unspecified essent ial Results for this BRAND INSPECTOR hypertension (HR C) procedure are in Chronic kidney the results disease (CKD), stage section . III (moderate) ([facility]) ELECTROLYTE PANEL Routine 05/28/2013 3:41 PM Unspecified essen tial Results for this BRAND INSPECTOR hypertension (HR C) procedure are in Chronic kidney the results disease (CKD), stage section . III (moderate) ([facility]) CALCIUM Routine 05/28/2013 3:41 PM Unspecified essential Results for this BRAND INSPECTOR hypertension (HR C) procedure are in Chronic kidney the results disease (CKD), stage section . III (moderate) ([facility]) BUN Routine 05/28/2013 3:41 PM Unspecified essential Results for this BRAND INSPECTOR hypertension (HR C) procedure are in Chronic kidney the results disease (CKD), stage section . III (moderate) ([facility]) documented in this encounter Results (ABNORMAL) Microalb/Creat Ratio (05/28/2013 4:01 PM BRAND INSPECTOR) Patholo gist Method Time Signature Microalbumin 58.0 mg/L HP CONVERSION Urine U Creat Random 138 mg/dL HP CONVERSION Microalbumin/Cre 42.0 (H) 0.0 - HP CONVERSION atinine Ratio 30.0 Specimen Anatomical Collection Method Collection Time Receive d Time (Source) Location / / Volume Laterality 05/28/2013 4:01 PM 3 9:03 BRAND INSPECTOR PM BRAND INSPECTOR Terrence Hernandez MD LAB_1 Performing Organization Address [facility] Phon e Number HP CONVERSION Calcium (05/28/2013 3:41 PM BRAND INSPECTOR) P athologist Signature Calcium 10.3 8.5 - 10.5 HP CONVERSION mg/dL Specimen Anatomical Collection Method Collection Time Receive d Time (Source) Location / / Volume Laterality 05/28/2013 3:41 PM 3 4:40 BRAND INSPECTOR PM BRAND INSPECTOR Narrative HP CONVERSION - 05/28/2013 5:00 PM BRAND [place]PECT[place] [address] Terrence Hernandez MD LAB_1 Performing Organization Address [facility] Phon e Number HP CONVERSION (ABNORMAL) BUN (05/28/2013 3:41 PM BRAND INSPECTOR) P athologist Signature Blood Urea 29 (H) 5 - 26 HP CONVERSION Nitrogen mg/dL Specimen Anatomical Collection Method Collection Time Receive d Time (Source) Location / / Volume Laterality 05/28/2013 3:41 PM 3 4:40 BRAND INSPECTOR PM BRAND INSPECTOR Narrative HP CONVERSION - 05/28/2013 5:00 PM BRAND INSPECTOR Performed at [facility], [place], [address] [place] [address] Terrence Hernandez MD LAB_1 Performing Organization Address [facility] Phon e Number HP CONVERSION (ABNORMAL) Creatinine / GFR (05/28/2013 3:41 PM BRAND INSPECTOR) Analysis Performed At Patho logist Time Signature Creatinine 1.5 (H) 0.4 - 1.3 HP CONVERSION Serum mg/dL Est GFR >60 >60 HP CONVERSION Am mL/min/1.7 3m2 Est GFR Non-Afr 49 (L) >60 HP CONVERSION Am mL/min/1.7 3m2 Comment: Normal>60, moderate decrease 30 - 59, se alexia decrease 15 - 29, renal failure <15 mL/min/1.73 m2 NOTE: ??Choose the eGFR result above jamie ropriate for the race of the patient. Specimen Anatomical Collection Method Collection Time Receive d Time (Source) Location / / Volume Laterality 05/28/2013 3:41 PM 3 4:40 BRAND INSPECTOR PM BRAND INSPECTOR Narrative HP CONVERSION - 05/28/2013 5:00 PM BRAND [place]PECT[place] [address] Terrence Hernandez MD LAB_1 Performing Organization Address [facility] Phon e Number HP CONVERSION (ABNORMAL) Electrolyte Panel (05/28/2013 3:41 PM BRAND INSPECTOR) P athologist Signature Sodium 140 137 - 147 HP CONVERSION mEq/L Potassium 3.3 (L) 3.5 - 5.2 HP CONVERSION mEq/L Chloride 99 98 - 110 HP CONVERSION mEq/L Bicarbonate 31 23 - 33 HP CONVERSION mmol/L Specimen Anatomical Collection Method Collection Time Receive d Time (Source) Location / / Volume Laterality 05/28/2013 3:41 PM 3 4:40 BRAND INSPECTOR PM BRAND INSPECTOR Narrative HP CONVERSION - 05/28/2013 5:00 PM BRAND INSPECTOR Performed at [facility], [place], [address] [place] [address] Terrence Hernandez MD LAB_1 Performing Organization Address [facility] Phon e Number HP CONVERSION documented in this encounter Visit Diagnoses Diagnosis Unspecified essential hypertension ([facility]) Unspecified essential hypertension Chronic kidney disease (CKD), stage III (moderate) ([facility]) Chronic kidney disease, Stage III (moder ate) documented in this encounter Care Teams Vp Delivery Relationship Specialty Start Date End Date Md Yepez MD PCP - General 12/01/12 10/11/15 [place] [address] documented as of this encounter
--- OUTSIDE RECORDS SUMMARY | 2022-04-16 08:11 | XMS_ITS | Encounter Summary ---
:1960 Author Organization [facility] Address [address] [place] [address] Care Team Providers Name Role Phone Md THEE Yepez Primary Care Provider Encounter Details Date Type Department Care Team Description 12/01/2012 Lab Visit [facility] Unspecified essential hypert ension; [address]. Chronic kidney disease (CKD) , stage III (moderate); [place] [address] Other malaise and fatigue [phone] Social History Tobacco Use Types Packs/Day Years Used Date Smoking Tobacco: Never Assessed Sex Assigned at Date Recorded Not on file documented as of this encounter Plan of Treatment Not on filedocumented as of this encounter Procedures Procedure Name Priority Date/Time Associated Diagnosis Comme nts TESTOSTERON Routine 12/01/2012 6:28 PM Unspecified essential Results for this FREE+TOTAL CDT hypertension (HR C) procedure are in Chronic kidney the results disease (CKD), stage section . III (moderate) ( [facility]) Other malaise and fatigue GLUCOSE Routine 12/01/2012 6:28 PM Unspecified essential Results for this CDT hypertension (HR C) procedure are in Chronic kidney the results disease (CKD), stage section . III (moderate) ( [facility]) Other malaise and fatigue THYROID STIMULATING Routine 12/01/2012 6:28 PM Unspecified ess ential Results for this HORMONE CDT hypertension (HR C) procedure are in Chronic kidney the results disease (CKD), stage section . III (moderate) ( [facility]) Other malaise and fatigue CREATININE / GFR Routine 12/01/2012 6:28 PM Unspecified essent ial Results for this CDT hypertension (HR C) procedure are in Chronic kidney the results disease (CKD), stage section . III (moderate) ( [facility]) Other malaise and fatigue ELECTROLYTE PANEL Routine 12/01/2012 6:28 PM Unspecified essen tial Results for this CDT hypertension (HR C) procedure are in Chronic kidney the results disease (CKD), stage section . III (moderate) ( [facility]) Other malaise and fatigue ALBUMIN/CREAT RATIO Routine 12/01/2012 6:28 PM Chronic kidney Results for this CDT disease (CKD), stage procedu re are in III (moderate) ([facility]) the res ults section. CALCIUM Routine 12/01/2012 6:28 PM Unspecified essential Results for this CDT hypertension (HR C) procedure are in Chronic kidney the results disease (CKD), stage section . III (moderate) ( [facility]) Other malaise and fatigue BUN Routine 12/01/2012 6:28 PM Unspecified essential Results for this CDT hypertension (HR C) procedure are in Chronic kidney the results disease (CKD), stage section . III (moderate) ( [facility]) Other malaise and fatigue documented in this encounter Results Microalb/Creat Ratio (12/01/2012 6:28 PM CDT) Analysis Performed At Patho logist Time Signature Microalbumin 24.0 mg/L HP CONVERSION Urine U Creat Random 112 mg/dL HP CONVERSION Microalbumin/Crea 21.4 0.0 - 30.0 HP CONVERSI ON tinine Ratio Specimen Anatomical Collection Method Collection Time Receive d Time (Source) Location / / Volume Laterality 12/01/2012 6:28 PM 3 9:22 CDT PM CDT Terrence Hernandez MD LAB_1 Performing Organization Address City/State/ZIP Code Phon e Number HP CONVERSION THYROID STIMULATING HORMONE (12/01/2012 6:28 PM CDT) P athologist Signature Thyroid 3.88 0.20 - HP CONVERSION Stimulating 4.50 mIU/L Hormone Specimen Anatomical Collection Method Collection Time Receive d Time (Source) Location / / Volume Laterality 12/01/2012 6:28 PM 3 9:22 CDT PM CDT Terrence Hernandez MD LAB_1 Performing Organization Address City/[facility]/ZIP Code Phon e Number HP CONVERSION TESTOSTERON FREE+TOTAL (12/01/2012 6:28 PM CDT) Analysis Performed At Patho logist Time Signature Free Testosterone 11 9 - 30 HP CONVERSIO N ng/dL ng/dL Comment: Testing performed by [facility]. Total Serum Testosterone 320 240 - 950 ng/dL HP CONVERSION Comment: Testing performed by Liquid Chromatograp hy-Tandem Mass Spectrometry (LC-MS/MS). Specimen Anatomical Collection Method Collection Time Receive d Time (Source) Location / / Volume Laterality 12/01/2012 6:28 PM 3 9:22 CDT PM CDT Narrative HP CONVERSION - 12/04/2012 11:47 AM CDT Performed at [facility] [address] [place] [address] Terrence Hernandez MD LAB_1 Performing Organization Address [facility] Phon e Number HP CONVERSION Calcium (12/01/2012 6:28 PM CDT) athologist Signature Calcium 9.6 8.5 - 10.5 HP CONVERSION mg/dL Specimen Anatomical Collection Method Collection Time Receive d Time (Source) Location / / Volume Laterality 12/01/2012 6:28 PM 3 8:31 CDT PM CDT Narrative HP CONVERSION - 12/01/2012 8:56 PM CDT Performed at [facility], [address] [place] [address] Terrence Hernandez MD LAB_1 Performing Organization Address City/[facility] Code Phon e Number HP CONVERSION Electrolyte Panel (12/01/2012 6:28 PM CDT) P athologist Signature Sodium 141 137 - 147 HP CONVERSION mEq/L Potassium 4.3 3.5 - 5.2 HP CONVERSION mEq/L Chloride 107 98 - 110 HP CONVERSION mEq/L Bicarbonate 27 23 - 33 HP CONVERSION mmol/L Specimen Anatomical Collection Method Collection Time Receive d Time (Source) Location / / Volume Laterality 12/01/2012 6:28 PM 3 8:31 CDT PM CDT Narrative HP CONVERSION - 12/01/2012 8:56 PM CDT Performed at [facility], [address] [place] [address] Terrence Hernandez MD LAB_1 Performing Organization Address [facility] Phon e Number HP CONVERSION GLUCOSE (12/01/2012 6:28 PM CDT) athologist Signature Lab Glucose 90 60 - 100 HP CONVERSION mg/dL Specimen Anatomical Collection Method Collection Time Receive d Time (Source) Location / / Volume Laterality 12/01/2012 6:28 PM 3 8:31 CDT PM CDT Narrative HP CONVERSION - 12/01/2012 8:56 PM CDT Performed at [facility], [address] [place] [address] Terrence Hernandez MD LAB_1 Performing Organization [address] [facility] Phon e Number HP CONVERSION BUN (12/01/2012 6:28 PM CDT) athologist Signature Blood Urea 19 5 - 26 HP CONVERSION Nitrogen mg/dL Specimen Anatomical Collection Method Collection Time Receive d Time (Source) Location / / Volume Laterality 12/01/2012 6:28 PM 3 8:31 CDT PM CDT Narrative HP CONVERSION - 12/01/2012 8:56 PM CDT Performed at [facility], [address] [place] [address] Terrence Hernandez MD LAB_1 Performing Organization Address [facility] Phon e Number HP CONVERSION (ABNORMAL) Creatinine / GFR (12/01/2012 6:28 PM CDT) Analysis Performed At [facility] Time Signature Creatinine 1.4 (H) 0.4 - [...] Time (Source) Location / / Volume Laterality 12/01/2012 6:28 PM 3 8:31 CDT PM CDT Narrative HP CONVERSION - 12/01/2012 8:56 PM CDT Performed at [facility], [address] [id number] Terrence Hernandez MD LAB_1 Performing Organization Address City/State/ZIP Code Phon e Number HP CONVERSION documented in this encounter Visit Diagnoses Diagnosis Unspecified essential hypertension ([facility]) Unspecified essential hypertension Chronic kidney disease (CKD), stage III (moderate) ([facility]) Chronic kidney disease, Stage III (moder ate) Other malaise and fatigue documented in this encounter Care Teams Nuclear Reactor Operator Relationship Specialty Start Date End Date Md Yepez MD PCP - General 12/01/12 10/11/15 [place] [address] documented as of this encounter
--- OUTSIDE RECORDS SUMMARY | 2022-04-16 08:11 | XMS_ITS | Encounter Summary ---
:1960 Author Organization [facility] Address [address], [place] [address] Care Team Providers Name Role Phone LiliaHuseyin churchjoao NGUYỄN CNP Primary Care Provider [phone] Encounter Details Date Type Department Care Team Description 07/02/2011 Hospital Encounter Heart & Vascular Irineo [facility] MD Cristian [address] [place] [address] [phone] (Wo rk) Social History Tobacco Use Types Packs/Day Years Used Date Smoking Tobacco: Never Assessed Sex Assigned at Date Recorded Not on file documented as of this encounter Medications at Time of Discharge Medication Sig Dispensed Refills Start Date End Date ATENolol (AKA TENORMIN) 25 Take 1 tablet by 90 3 04/201110/08/2011 MG tablet mouth daily (every 24 hours). LW Addl Instr:Indicated for: High Blood Pressure cholecalciferol (AKA Take 1 tablet by 90 0 0 10/14/2014 VITAMIN D3) 1000 UNITS mouth daily (every tablet 24 hours). lisinopril (AKA ZESTRIL) Take 1 tablet by 90 3 09/2809/25/2011 20 MG tablet mouth daily (every 24 hours). LW Addl Instr:Indicated for: High Blood Pressure omeprazole (AKA PRILOSEC) Take 1 capsule by 30 11 10/30/2012 20 MG capsule mouth daily (every 24 hours). LW Addl Instr:Indicated for: Acid Reflux UNKNOWN MEDICATION Indications: PN: 0 09/25/2010 10/08/2011 documented as of this encounter Plan of Treatment Not on filedocumented as of this encounter Visit Diagnoses Not on filedocumented in this encounter Care Teams Concert Singer Relationship Specialty Start Date End Date Hansa Lewis APRN, BRIDGE INSTRUCTOR PCP - General 10/22/10 11/30/12 [id number] [address] [place] [id number] documented as of this encounter
--- OUTSIDE RECORDS SUMMARY | 2022-04-16 08:11 | XMS_ITS | Encounter Summary ---
:1960 [facility] [address], [place] [address] Care Team Providers Name Role Phone Hansa Lewis APRN, CNP Primary Care Provider [phone] Reason for Visit Reason Comments Other Encounter Details Date Type Department Care Team Description 09/14/2010 Telephone Specialty Center 393 1 Nephrology Center, Message Other [address] [place] [address] Social History Tobacco Use Types Packs/Day Years Used Date Smoking Tobacco: Never Assessed Sex Assigned at Date Recorded Not on file documented as of this encounter [facility], Message - 09/14/2010 9:30 AM CST PRESCRIPTION REFILL Please provide enough refills to last until patient's next visit. Comment:-Last appt 09-13-09; next 09-25-10 Pharmacy Seq #:-[phone] [facility]ax[facility] [phone] [facility]David Drug Name/Strength:-Tenormin 50MG Tab Sig: Dose/Route/Freq:-1 tab daily Quantity & Last Fill:-#30 08-07-10 *ECODE~PNRF Created on 14Sep2010 9:30am by BALJIT BARRAZA M On 14Sep2010 10:47am SHANKAR BULL wrote: Qty 30 with no refills faxed to above pharmacy Acknowledged by EVA HERRING on 9:39am AINABLE SYSTEMS ANALYST documented in this encounter Plan of Treatment Not on filedocumented as of this encounter Visit Diagnoses Not on filedocumented in this encounter Care Teams Machinist Apprentice Wood Relationship Specialty Start Date End Date Hansa Lewis, DELMA, JAVA APPLICATION DEVELOPER PCP - General 10/22/10 11/30/12 [address] [address] [id number] documented as of this encounter
--- OUTSIDE RECORDS SUMMARY | 2022-04-16 08:12 | XMS_ITS | Encounter Summary ---
:1960 Author Organization [facility] Address [address], [place] [address] Care Team Providers Name Role Phone Adelaida Lewiserica NGUYỄN CNP Primary Care Provider [phone] Encounter Details Date Type Department Care Team Description 09/13/2009 Office Visit Specialty Center 3931 Newton Hernandez MD Nephrology [address] [facility] [address] [facility] [address] [place] [address] [id number] [phone] Social History Tobacco Use Types Packs/Day Years Used Date Smoking Tobacco: Never Assessed Sex Assigned at Date Recorded Not on file documented as of this encounter Last Filed Vital Signs Vital Sign Reading Time Taken Comments Blood Pressure 132/78 09/13/2009 3:06 PM CREAM CHEESE MAKER Pulse 60 09/13/2009 3:06 PM CREAM CHEESE MAKER Temperature - - Respiratory Rate - - Oxygen Saturation - - Inhaled Oxygen Concentration - - Weight 83.9 kg (184 lb 15.8 oz) 09/13/2009 3:06 PM CREAM CHEESE MAKER C: 83.9kg Height - - Body Mass Index 24.74 07/26/2008 2:24 PM CREAM CHEESE MAKER documented in this encounter Progress Notes Terrence Hernandez MD - 09/13/2009 12:01 AM CST Progress Notes signed by Terrence Hernandez MD at 09/19/09 0744 Author: Terrence Hernandez MD Service: (none) Author Type: Physician Filed: 11/11/102023 Note Time: 09/13/09 0001 Status: Signed [employer] Consultant: Terrence Hernandez MD (Physician) NAME: JOSH MOSLEY MR#: [id number] ACCT: [id number] VISIT: [id number] DICTATING CLINICIAN: Terrence Hernandez MD CONFIRM #: [id number] LOC: 236 CLINIC PROGRESS NOTE DATE OF VISIT: 09/13/2009 SUBJECTIVE: : 1960. Mr. Mosley returns to clinic today for followup of his chronic kidney disease and hypertension. Overall, the patient has been feeling quite well. His blood pressure has been fairly controlled. It is slightly above goal today. The patient and I mainly talked about his cholesterol today. His creatinine is actually down. The entire visit of 45 minutes was spent in counseling today. We discussed the importance of a low-cholesterol diet. The patient has a significant coronary artery disease history with both of his parents dying in their 60s, both with heart disease. The patient reports that he did have considerable effort in losing weight from over 200 down to about 175, slightly less than that. Unfortunately, he has rebounded. He has not been exercising nearly as diligently as he was when he was losing weight. His cholesterol numbers have improved dramatically down from the 230s down to about 200 for his total cholesterol. His LDL and triglycerides have dropped as well. We discussed the possibility of starting a statin versus restarting the exercise. The patient is slightly hesitant to start new pills, and he really wants to work on exercise. OBJECTIVE: ASSESSMENT: This is a 51-year-old gentleman with stage 2 to 3 chronic kidney disease, hypertension, hyperlipidemia. 1. Chronic kidney disease stage 2 to 3: The patient's creatinine is actually better. His blood pressure is well controlled. I am not going to make any changes to his regimen. We will have to check his UMAR on his next visit. 2. Hypertension: His blood pressure is slightly above goal today at 132/78, but his blood pressures have been fairly well controlled in other clinic offices. I am not make any changes to his antihypertensives today. 3. Hypercholesterolemia: The entire visit of 25 minutes was spent discussing this. The patient is going to work at weight loss getting back down to 175 pounds or so. If he is unable to do that, then we agree we would start him on statin therapy. PLAN: See Assessment. CC: CRISTINA Steele AET:[id number] C: 09/14/09 11:14 CONFIRM #: [id number] M CHEESE MAKER documented in this encounter Plan of Treatment Not on filedocumented as of this encounter Visit Diagnoses Not on filedocumented in this encounter Care Teams Engineering Tech Relationship Specialty Start Date End Date Hansa Lewis APRN, CROSSING FLAGMAN PCP - General 10/22/10 11/30/12 [address] [address] [address] documented as of this encounter
--- OUTSIDE RECORDS SUMMARY | 2022-04-16 08:12 | XMS_ITS | Encounter Summary ---
:1960 [facility] Address [address], [place] [address] Care Team Providers Name Role Phone Hansa Lewis APRN, CNP Primary Care Provider [phone] Reason for Visit Reason Comments Other Encounter Details Date Type Department Care Team Description 05/08/2010 Telephone Specialty Center 393 1 Nephrology Center, Message Other [address] [place] [address] Social History Tobacco Use Types Packs/Day Years Used Date Smoking Tobacco: Never Assessed Sex Assigned at Date Recorded Not on file documented as of this encounter [facility], Message - 05/08/2010 12:40 PM CDT Phone Note filed by Earthineer at 11/11/102027 Author: Earthineer Service: (none) Author Type: (none) Filed: 11/11/102027 Note Time: 05/08/10 1240 Status: Signed Pinking Sewing Machine Operator: Earthineer (Resource) PRESCRIPTION REFILL Please provide enough refills to last until patient's next visit. Comment:-lv 09/13/09 no future appt Pharmacy Seq #:-[phone] [facility] [phone] or City:-[place] Clinician Name:-David Drug Name/Strength:-Prilosec 20mg cap Sig: Dose/Route/Freq:-take one cap once daily Quantity & Last Fill:-#30 04/11/10 Created on 08May2010 12:40pm by TORIN BANKS On 08May2010 2:31pm REYNOLD JOHNSON wrote: Qty 30 with 1 refill faxed into above pharmacy per standing order. Acknowledged by EVA HERRING on 12:48pm ATE ADVISOR documented in this encounter Plan of Treatment Not on filedocumented as of this encounter Visit Diagnoses Not on filedocumented in this encounter Care Teams Outbound Sales Advisor Relationship Specialty Start Date End Date Hansa Lewis APRN, SHOE POLISHER PCP - General 10/22/10 11/30/12 [address] [facility] [place] [address] documented as of this encounter
--- OUTSIDE RECORDS SUMMARY | 2022-04-16 08:12 | XMS_ITS | Encounter Summary ---
:1960 Author Organization [facility] Address [address], [place] [address] Care Team Providers Name Role Phone Hansa Lewis YARED NGUYỄN Primary Care Provider [phone] Encounter Details Date Type Department Care Team Description 09/17/2008 PN Conversion Only [place] [address] [place], [place] [address] (Wo rk) Social History Tobacco Use Types Packs/Day Years Used Date Smoking Tobacco: Never Assessed Sex Assigned at Date Recorded Not on file documented as of this encounter Plan of Treatment Not on filedocumented as of this encounter Procedures Procedure Name Priority Date/Time Associated Comments Diagnosis ELECTROLYTES (NA, K, Routine 09/17/2008 10:14 Res ults for this CL, BICARB) AM FORGING PRESS OPERATOR procedure are i n the results section. CREATININE / GFR Routine 09/17/2008 10:14 Results for this AM FORGING PRESS OPERATOR procedure are i n the results section. CALCIUM Routine 09/17/2008 10:14 Results for this AM FORGING PRESS OPERATOR procedure are i n the results section. BUN Routine 09/17/2008 10:14 Results for this AM FORGING PRESS OPERATOR procedure are i n the results section. documented in this encounter Results BUN (09/17/2008 10:14 AM FORGING PRESS OPERATOR) P athologist Signature Blood Urea 18 5 - 26 HP CONVERSION Nitrogen mg/dL Specimen (Source) Anatomical Collection Method Collection Time Re ceived Time Location / / Volume Laterality 09/17/2008 10:14 AM FORGING PRESS OPERATOR Terrence Hernandez MD LAB_1 Performing Organization Address City/State/ZIP Code Phon e Number HP CONVERSION Calcium (09/17/2008 10:14 AM FORGING PRESS OPERATOR) P athologist Signature Calcium 10.0 8.5 - 10.5 HP CONVERSION mg/dL Specimen (Source) Anatomical Collection Method Collection Time Re ceived Time Location / / Volume Laterality 09/17/2008 10:14 AM FORGING PRESS OPERATOR Terrence Hernandez MD LAB_1 Performing Organization Address [facility] Phon e Number HP CONVERSION (ABNORMAL) Creatinine / GFR (09/17/2008 10:14 AM FORGING PRESS OPERATOR) [facility] Time Signature Creatinine 1.5 (H) 0.4 - 1.3 HP CONVERSION Serum mg/dL Est GFR >60 >60 HP CONVERSION Am Comment: -Mongolian and Jxm-Hincfug-Dhlghmg n reference range units: mL/min/1.73m2 Normal>60, moderate decrease 30 - 59, se alexia decrease 15 - 29, renal failure <15 mL/min/1.73 m2 NOTE: Choose the eGFR result above appro priate for the race of the patient. Est GFR Non-Afr Am 50 (L) >60 HP CONVERSI ON Specimen (Source) Anatomical Collection Method Collection Time Re ceived Time Location / / Volume Laterality 09/17/2008 10:14 AM FORGING PRESS OPERATOR Terrence Hernandez MD LAB_1 Performing Organization Address [facility]/ZIP [facility] Phon e Number HP CONVERSION Electrolytes (NA, K, CL, Bicarb) (09/17/2008 10:14 AM FORGING PRESS OPERATOR) P athologist Signature Sodium 139 137 - 147 HP CONVERSION mEq/L Potassium 4.6 3.5 - 5.2 HP CONVERSION mEq/L Chloride 104 98 - 110 HP CONVERSION mEq/L Bicarbonate 32 23 - 33 HP CONVERSION mmol/L Specimen (Source) Anatomical Collection Method Collection Time Re ceived Time Location / / Volume Laterality 09/17/2008 10:14 AM FORGING PRESS OPERATOR Terrence Hernandez MD LAB_1 Performing Organization Address City/[facility]/ZIP Code Phon e Number HP CONVERSION documented in this encounter Visit Diagnoses Not on filedocumented in this encounter Care Teams Sr Account Executive Relationship Specialty Start Date End Date Hansa Lewis APRN, SUEDING AND BUFFING MACHINE OPERATOR PCP - General 10/22/10 11/30/12 [address] [address] [place] [id number] documented as of this encounter
--- OUTSIDE RECORDS SUMMARY | 2022-04-16 08:12 | XMS_ITS | Encounter Summary ---
:1960 Author Organization [facility] Address [address] [address] Care Team Providers Name Role Phone Unassigned, Provider Primary Care Provider Unavailable Encounter Details Date Type Department Care Team Description 08/19/2008 Hospital Encounter Heart & Vascular Eva Hernandez MD [address] [address] Center Procedural Ar ea Eva Hernandez MD [address] [facility] [address] [place] [address] [place] [address] Social History Tobacco Use Types Packs/Day Years Used Date Smoking Tobacco: Never Assessed Sex Assigned at Date Recorded Not on file documented as of this encounter Medications at Time of Discharge Medication Sig Dispensed Refills Start Date End Date ATENolol (AKA TENORMIN) Take 1 tablet by 30 11 200708/26/2008 100 MG tablet mouth nightly. LW Addl Instr:Indicated for: High Blood Pressure omeprazole (AKA Take 1 capsule by 90 3 05/19/2008 PRILOSEC) 20 MG capsule mouth daily (every 24 hours). LW Addl Instr:Indicated for: Acid Reflux omeprazole (AKA Take 1 capsule by 90 3 06/06/2007 PRILOSEC) 20 MG capsule mouth daily (every 24 hours). LW Addl Instr:Indicated for: Acid Reflux omeprazole (AKA Take 1 capsule by 30 0 06/03/2007 PRILOSEC) 20 MG capsule mouth daily (every 24 hours). LW Comment:has 06/06/07 appt LW Addl Instr:Indicated for: Acid Reflux omeprazole (AKA Take 1 capsule by 90 3 06/18/2006 PRILOSEC) 20 MG capsule mouth daily (every 24 hours). LW Addl Instr:Indicated for: Acid Reflux omeprazole (AKA Take 1 capsule by 30 3 06/05/2005 PRILOSEC) 20 MG capsule mouth daily (every 24 hours). LW Addl Instr:Indicated for: Acid Reflux UNKNOWN MEDICATION Indications: PN: 0 08/19/2008 09/25/2010 UNKNOWN MEDICATION Indications: PN: 0 08/09/2008 09/25/2010 UNKNOWN MEDICATION Indications: PN: 0 07/26/2008 09/25/2010 UNKNOWN MEDICATION Indications: PN: 0 07/06/2008 09/25/2010 documented as of this encounter Procedure Notes Eva Hernandez MD - 08/19/2008 12:01 AM CST Progress Notes signed by Eva Hernandez MD at 08/23/08 1637 Author: Eva Hernandez MD Service: (none) Author Type: Physician Filed: 11/11/10 1027 Note Time: 08/19/08 0830 Status: Signed Oracle Bpm Consultant: Eva Hernandez MD (Physician) NAME: BRYCE MOSLEY MR#: [id number] ACCT: [id number] AUTHENTICATING CLINICIAN: Eva Hernandez MD CONFIRM #: [id number] LOC: 1 PROCEDURE REPORT : 1960 Mr. Mosley is a 48-year-old gentleman who has had some hematuria and acute renal failure. We are proceeding with kidney biopsy. DATE OF PROCEDURE: INDICATIONS FOR PROCEDURE: PREPROCEDURE DIAGNOSIS: Acute renal failure. POSTPROCEDURE DIAGNOSIS: Acute renal failure. PROCEDURE PERFORMED: PERFORMED BY: DESCRIPTION OF PROCEDURE: After obtaining informed consent including the risks of bleeding and infection including serious bleeding, the patient was prepped and draped in the usual sterile manner. Under ultrasound guidance, the kidney was visualized and everything was marked actually prior to sterile dressing. At that point, ChloraPrep was used to test the skin. He was draped in the usual sterile manner. The patient was anesthetized with 15 mL of 1% lidocaine without epinephrine. The patient was somewhat jumpy to the lidocaine. At that point, a small incision approximately 3 to 4 mm was made in the skin. He had minimal bleeding from that site. The patient was tested to make sure that he was anesthetized at the skin. An 18 gauge biopsy needle was placed. Under ultrasound guidance through a needle guide, 5 passes were made on the kidney. This resulted in 3 good fragments of kidney and 1 on the fourth very tiny fragment of kidney. After the 4 fragments were obtained, these were prepared to be sent off to Pathology. Postprocedure ultrasound did not reveal any evidence of bleeding. The patient was laid in the supine position. He will be followed for the next 8 hours. COMPLICATIONS: There were no immediate complications. EBL: Less than 10 cc. The site was cleaned, and a Band-Aid was placed at the small incision site. CC: CRISTINA Steele AET:[id number] C: 08/19/08 08:56 CONFIRM #: [id number] HERMAL POWERPLANT SUPERVISOR documented in this encounter Miscellaneous Notes Miscellaneous - [facility], [facility] - 08/19/2008 12:01 AM CST ICD-9-CM ICD-9-CM Narrative description Code ======== DIAGNOSES Principal: ACUTE RENAL FAILURE NOS 584.9 PROCEDURES Provider1 Date Principal: PERCUTAN RENAL BIOPSY [id number] 55.23 Provider2: Provider3: documented in this encounter Plan of Treatment Not on filedocumented as of this encounter Procedures Procedure Name Priority Date/Time Associated Comments Diagnosis US BX RENAL - Routine 08/19/2008 8:26 AM Results for this RADIOLOGIST GEOTHERMAL POWERPLANT SUPERVISOR procedure are i n the results section. SURGICAL PATHNOE Routine 08/19/2008 8:24 AM Re sults for this NICOLLET GEOTHERMAL POWERPLANT SUPERVISOR procedure are i n the results section. ADDENDUM REPORT Routine 08/19/2008 8:24 AM Result s for this GEOTHERMAL POWERPLANT SUPERVISOR procedure are i n the results section. documented in this encounter Results US Bx Renal - Radiologist (08/19/2008 8:26 AM GEOTHERMAL POWERPLANT SUPERVISOR) Anatomical Region Laterality Modality Abdomen Other Specimen (Source) Anatomical Location Collection Method / Collectio n Time Received Time / Laterality Volume Narrative 08/19/2008 8:26 AM GEOTHERMAL POWERPLANT SUPERVISOR URP See physicians report in LastWord using command TRXALL. Dictating EVA FRAKNS Procedure Note Eva Hernandez - 09/22/2016 URP See physicians report in LastWord using command TRXALL. Dictating EVA FRANKS Eva MOHAMUD US Pathology Report (08/19/2008 8:24 AM GEOTHERMAL POWERPLANT SUPERVISOR) [facility] gist Method Time Signature Surgical SEE TEXT No normal HP CONVERSION Pathology range Comment: Patient: BRYCE MOSLEY ?S URGICAL PATHOLOGY REPORT Pathology # ??[id number] ?Date Obtained: ? Date Received: DIAGNOSIS: ?Right kidney biopsy: ?- Forwarded to [facility] for further analysis, an ?addendum will be issued when e results are received. ?Stefany Lebron M.D. ?(electronic signature) SHB/SHB/kjs Date of Report: 08/20/08 Pathology # ??[id number] ?Date Obtained: ? Date Received: ORGAN/TISSUE SITE: ?Right kidney biopsy GROSS DESCRIPTION: ?The specimen is labeled right kidn ey biopsy and consists of 3 kan-pink ?needle core biopsies with diameter s averaging 0.2 cm and length ranging ?from 0.5 cm to 1.5 cm. One needle core is submitted in formalin, 1 needle ?core is submitted in immunofluores cence media, and 1 needle core is ?submitted in em fixative. The spec imen is sent to [facility]. AMW/kjs Specimen (Source) Anatomical Collection Method Collection Time Re ceived Time Location / / Volume Laterality 08/19/2008 8:24 AM GEOTHERMAL POWERPLANT SUPERVISOR Eva Hernandez MD LAB_1 Performing Organization Address City/State/ZIP Code Phon e Number HP CONVERSION Addendum Report (08/19/2008 8:24 AM GEOTHERMAL POWERPLANT SUPERVISOR) athologist Signature Addendum SEE TEXT No normal HP CONVERSION range Comment: Patient: BRYCE MOSLEY ? SURGICAL PATHOLOGY SUPPLEMENTAL REPORT Pathology # ??[id number] ?Date Obtained: ? Date Received: ADDENDUM: ? RENAL BIOPSY REPORT DOCTOR: ?Molly Ayon M.D. INSTITUTION: [facility] THEIR #: ? [id number] FINAL DIAGNOSIS: ?Kidney, right, biopsy: ?- Minimal tissue received. Normal- appearing glomeruli by light microscopy. ?Segmental mesangial electron de nse deposits identified by electron ?microscopy. No glomeruli availa ble for immunofluorescence microscopy. FINAL DIAGNOSIS COMMENT: ?If clinically indicated, a repeat biopsy may be considered. ?Stefany Lebron M.D. ?(electronic signature) SHB/SHB/kjs Date of Report: 08/25/08 Specimen (Source) Anatomical Collection Method Collection Time Re ceived Time Location / / Volume Laterality 08/19/2008 8:24 AM GEOTHERMAL POWERPLANT SUPERVISOR Eva Hernandez MD LAB_1 Performing Organization Address City/State/ZIP Code Phon e Number HP CONVERSION documented in this encounter Visit Diagnoses Not on filedocumented in this encounter Care Teams Lime Mixer Relationship Specialty Start Date End Date Unassigned, Provider PCP - General 06/29/00 10/21/[address] [place] [address] documented as of this encounter
--- OUTSIDE RECORDS SUMMARY | 2022-04-16 08:12 | XMS_ITS | Encounter Summary ---
:1960 Author Organization [facility] Address [address] [address] Care Team Providers Name Role Phone Adelaida Lewiserica NGUYỄN CNP Primary Care Provider [phone] Encounter Details Date Type Department Care Team Description 08/26/2008 Office Visit Specialty Center 3931 Newton Hernandez MD Nephrology [address] [facility] 39[address] [facility] [address] [place] [address] [id number] [phone] Social History Tobacco Use Types Packs/Day Years Used Date Smoking Tobacco: Never Assessed Sex Assigned at Date Recorded Not on file documented as of this encounter Last Filed Vital Signs Vital Sign Reading Time Taken Comments Blood Pressure 134/88 08/26/2008 8:24 AM TRUST VAULT CLERK Pulse 67 08/26/2008 8:24 AM TRUST VAULT CLERK Temperature - - Respiratory Rate - - Oxygen Saturation - - Inhaled Oxygen Concentration - - Weight 79.4 kg (174 lb 15.7 oz) 08/26/2008 8:24 AM TRUST VAULT CLERK C: 79.4kg Height - - Body Mass Index 23.41 07/26/2008 2:24 PM TRUST VAULT CLERK documented in this encounter Progress Notes Terrence Hernandez MD - 08/26/2008 12:01 AM CST Progress Notes signed by Terrence Hernandez MD at 08/27/08 0738 Author: Terrence Hernandez MD Service: (none) Author Type: Physician Filed: 11/11/10 1040 Note Time: 08/26/08 0001 Status: Signed Electronic Imaging System Operator: Terrence Hernandez MD (Physician) NAME: JOSH MOSLEY MR#: [id number] ACCT: [id number] VISIT: [id number] DICTATING CLINICIAN: Terrence Hernandez MD CONFIRM #: [id number] LOC: 236 CLINIC PROGRESS NOTE DATE OF VISIT: 08/26/2008 SUBJECTIVE: : 1960. Mr. Mosley is a 48-year-old gentleman who returns to clinic today for followup of his kidney biopsy which was performed last week. Unfortunately, the kidney biopsy was not completely diagnostic. We did not get enough glomeruli and not enough tissue. He had normal appearing glomeruli by light microscopy. He had some electron dense deposits identified by electron microscopy. There were no glomeruli available for immunofluorescence. I reviewed these findings with the patient. I also reviewed his creatinines going back 4-1/2 year or so. His creatinine has hovered anywhere from 1.4-1.6 with a brief episode where it was 1.8. Given this, given his microscopic hematuria and given his minimal proteinuria, I suspect that his biggest issue is IgA nephropathy. A normal light microscopy electron dense deposits in mesangium would be consistent with this. Unfortunately, the diagnostic test of choice is the immunofluorescence which we did not have any glomeruli for evaluation. Given this, I am recommend that we are not needing to do another biopsy. The patient is agreeable with this. I explained to the patient that the most likely explanation is IgA nephropathy, and that the best treatment for this is good control of his blood pressure and an GT inhibitor. I did prescribe lisinopril for him today at 10 mg daily. I also prescribed a reduction is his atenolol from 100 mg to 50 mg daily. Hopefully this will allow us to control his chronic kidney disease. I also explained to the patient about IgA nephropathy, how it is a mucosal disease and incomplete breakdown of the IgA. How it can cause microscopic hematuria. I gave him a handout from the [employer] on IgA nephropathy for him to read about this further. At this point, I will see him back in 6 month intervals, checking his blood pressure and his proteinuria. We also did discuss the role of fish oil and I am not a huge supporter of the fish oil in patients with mild chronic kidney disease such as his. Total time 25 minutes all in counseling OBJECTIVE: ASSESSMENT: PLAN: CC: CRISTINA Steele AET:[id number] C: 08/26/08 14:37 CONFIRM #: [id number] T VAULT CLERK documented in this encounter Plan of Treatment Not on filedocumented as of this encounter Visit Diagnoses Not on filedocumented in this encounter Care Teams Eyedotter Relationship Specialty Start Date End Date Hansa Lewis APRN, TRACK FITTER PCP - General 10/22/10 11/30/12 [address] [place] [address] documented as of this encounter
--- OUTSIDE RECORDS SUMMARY | 2022-04-16 08:12 | XMS_ITS | Encounter Summary ---
:1960 [facility] Address [address], [place] [address] Care Team Providers Name Role Phone Hansa Lewis APRN, CNP Primary Care Provider [phone] Reason for Visit Reason Comments Other Encounter Details Date Type Department Care Team Description 12/02/2009 Telephone Specialty Center 393 1 Nephrology Reynold Johnson Other [address] [place] [address] Social History Tobacco Use Types Packs/Day Years Used Date Smoking Tobacco: Never Assessed Sex Assigned at Date Recorded Not on file documented as of this encounter Progress Notes Center, Message - 12/02/2009 7:23 AM CDT Phone Note filed by [email or web address] at 11/11/1034 Author: [email or web address] Service: (none) Author Type: (none) Filed: 11/11/1034 Note Time: 12/02/09722 Status: Signed Leather Splitter: [email or web address] (Resource) PRESCRIPTION REFILL Please provide enough refills to last until patient's next visit. Comment:-lvd 09/13/09 current none Pharmacy Seq #:-[phone] [facility]-Phone[facility]ax[facility]fax [phone] or City:-[place] Clinician Name:-lawrence Drug Name/Strength:-vitamin d 50,000iu cap Sig: Dose/Route/Freq:-take 1 cap po on mondays Quantity & Last Fill:-12 08/26/09 *ECODE~PNRF Created on 02Dec2009 7:23am by ALY DENNIS On 09Dec2009 1:44pm EVA HERRING wrote: Does not need a refill of this. He should take Vitamin D3 1000 units daily. Acknowledged by EVA HERRING on 1:44pm On 09Dec2009 2:42pm RUBÉN FABIAN wrote: I called patient and left message to call us back. On 09Dec2009 2:44pm REYNOLD JOHNSON wrote: Qty 90 with 0 refills faxed into above pharmacy per standing order. TUTOR documented in this encounter Plan of Treatment Not on filedocumented as of this encounter Visit Diagnoses Not on filedocumented in this encounter Care Teams Chair Installer Relationship Specialty Start Date End Date Hansa Lewis, DELMA, REPAIRER GENERAL PCP - General 10/22/10 11/30/12 [address] [place] [address] documented as of this encounter
--- OUTSIDE RECORDS SUMMARY | 2022-04-16 08:12 | XMS_ITS | Encounter Summary ---
:1960 Author Organization [facility] Address [address], [place] [address] Care Team Providers Name Role Phone Hansa Lewis APRN, CNP Primary Care Provider [phone] Reason for Visit Reason Comments Other Encounter Details Date Type Department Care Team Description 02/27/2010 Telephone Specialty Center 393 1 Nephrology Center, Message Other [address] [place] [address] Social History Tobacco Use Types Packs/Day Years Used Date Smoking Tobacco: Never Assessed Sex Assigned at Date Recorded Not on file documented as of this encounter Progress Notes Center, Message - 02/27/2010 2:53 PM CDT Phone Note filed by [email or web address] at 11/11/10 7408 Author: [email or web address] Service: (none) Author Type: (none) Filed: 11/11/10 1443 Note Time: 02/27/103 Status: Signed Statement Clerks Supervisor: [email or web address] (Resource) PRESCRIPTION REFILL Please provide enough refills to last until patient's next visit. Comment:-lv 09/13/09 no future appt Pharmacy Seq #:-[phone] Pharmacy Name-Phone/Fax:-[facility] ph and fx [phone] or City:-[address] Clinician Name:-David Drug Name/Strength:-Prilosec 20mg cap Sig: Dose/Route/Freq:-take one cap once daily Quantity & Last Fill:-#30 01/27/10 *ECODE~PNRF Created on 27Feb2010 2:53pm by JULIO CÉSAR LEACH On 27Feb2010 3:48pm REYNOLD JOHNSON wrote: Qty 30 with 0 refills faxed into above pharmacy per standing order. Acknowledged by EVA HERRING on 9:18am S SALES ADVISOR documented in this encounter Plan of Treatment Not on filedocumented as of this encounter Visit Diagnoses Not on filedocumented in this encounter Care Teams [employer] Principal Relationship Specialty Start Date End Date Hansa Lewis APRN, SERVICE CENTER MANAGER PCP - General 10/22/10 11/30/12 [address] [place] [address] documented as of this encounter
--- OUTSIDE RECORDS SUMMARY | 2022-04-16 08:12 | XMS_ITS | Encounter Summary ---
:1960 [facility] Address [address] [address] Care Team Providers Name Role Phone Hansa Lewis APRN, CNP Primary Care Provider [phone] Reason for Visit Reason Comments Other Encounter Details Date Type Department Care Team Description 08/07/2010 Telephone Specialty Center 393 1 Nephrology Center, Message Other [address] [place] [address] Social History Tobacco Use Types Packs/Day Years Used Date Smoking Tobacco: Never Assessed Sex Assigned at Date Recorded Not on file documented as of this encounter Progress Notes Center, Message - 08/07/2010 1:55 PM CST PRESCRIPTION REFILL Please provide enough refills to last until patient's next visit. Comment:-Last appt 09-13-09; no future appts Pharmacy Seq #:-[phone] [facility]acy [facility]-Phone[facility]ax[facility]/fx [phone] [facility]David Drug Name/Strength:-Tenormin 50MG Tab Sig: Dose/Route/Freq:-1 tab daily Quantity & Last Fill:-#30 07-06-10 *ECODE~PNRF Created on 07Aug2010 1:55pm by BALJIT BARRAZA M On 07Aug2010 2:35pm SHANKAR BULL wrote: Qty 30 with no refills faxed to above pharmacy with reminder to make an appt within 30 days as pt missed 9 month f/u Acknowledged by EVA HERRING on 11:02am OR CONTROL SYSTEMS ENGINEER documented in this encounter Plan of Treatment Not on filedocumented as of this encounter Visit Diagnoses Not on filedocumented in this encounter Care Teams Operations Research Director Relationship Specialty Start Date End Date Hansa Lewis APRN, PERFECT BINDER FEEDER OFFBEARER PCP - General 10/22/10 11/30/[address] [place] [address] documented as of this encounter
--- OUTSIDE RECORDS SUMMARY | 2022-04-16 08:12 | XMS_ITS | Encounter Summary ---
:1960 Author Organization [facility] Address [address] [address] Care Team Providers Name Role Phone Hansa Lewis YARED NGUYỄN Primary Care Provider [phone] Encounter Details Date Type Department Care Team Description 03/07/2009 Office Visit Specialty Center 3931 Newton Hernandez MD Nephrology 39[address] [facility] 39[address] [facility] [address] [place] [address] [id number] [phone] Social History Tobacco Use Types Packs/Day Years Used Date Smoking Tobacco: Never Assessed Sex Assigned at Date Recorded Not on file documented as of this encounter Last Filed Vital Signs Vital Sign Reading Time Taken Comments Blood Pressure 127/77 03/07/2009 3:16 PM CDT Pulse 54 03/07/2009 3:16 PM CDT Temperature - - Respiratory Rate - - Oxygen Saturation - - Inhaled Oxygen Concentration - - Weight 81.2 kg (178 lb 15.9 oz) 03/07/2009 3:16 PM CDT C: 81.2kg Height - - Body Mass Index 23.94 07/26/2008 2:24 PM MANAGER MERCHANDISING documented in this encounter Progress Notes Terrence Hernandez MD - 03/07/2009 12:01 AM CDT Progress Notes signed by Terrence Hernandez MD at 03/30/09 1023 Author: Terrence Hernandez MD Service: (none) Author Type: Physician Filed: 11/11/10 1539 Note Time: 03/07/09 0001 Status: Signed Senior Teller: Terrence Hernandez MD (Physician) NAME: JOSH MOSLEY MR#: [id number] ACCT: [id number] VISIT: [id number] DICTATING CLINICIAN: Terrence Hernandez MD CONFIRM #: [id number] LOC: 236 CLINIC PROGRESS NOTE DATE OF VISIT: 03/07/2009 SUBJECTIVE: : 1960. Mr. Mosley is a 49-year-old gentleman who returns to clinic today for followup of his chronic kidney disease and likely IgA nephropathy. He had, unfortunately, not diagnostic biopsy. The patient has been feeling quite well. His energy level has been quite good. He has not had any problems with his urination. He has not had any pain with urination, and really has not had any ill effects from the lisinopril switch. He has been tolerating the medication well. He would also like refills of his atenolol and Prilosec as well. The patient is off his ergocalciferol now. He did have labs done in preparation for today's visit. The remainder of the patient's 8 point review of systems is performed and is otherwise unremarkable. MEDICATIONS: Reviewed and are per the electronic medical record. OBJECTIVE: VS: BP: 127/77. P: 54. Wt: 179 lb. LOWER EXTREMITIES: Without edema. LABS: Ordered by me and reviewed by me today show a white count of 138, potassium is 4.4, chloride is 103, bicarbonate is 28, BUN 17, creatinine is 1.5 which is unchanged. His phosphorus is 4.4, calcium is 10.1, albumin is 4.7, PTH is 57 with a 25 vitamin D level of 25. ASSESSMENT: This is a 49-year-old gentleman with stage 3 chronic kidney disease with hypertension and likely IgA nephropathy. He also has vitamin D deficiency. PLAN: 1. Chronic kidney disease stage 3: This is fairly stable. The patient has been tolerating his lisinopril quite well, and I will continue this. He has not had significant proteinuria in the past. I will recheck this on his next visit. 2. Hypertension: As described earlier, the patient does have mild hypertension. He is on lisinopril therapy and atenolol, and his blood pressure is very well controlled at this point. 3. Vitamin D deficiency: The patient still remains vitamin D insufficient, so I am going to put him back on the ergocalciferol 50,000 units once a week for 3 months. I also advised him to take a daily multivitamin with vitamin D. He gets fairly little in the way of vitamin D supplementation in his diet. CC: CRISTINA Steele AET:[id number] C: 03/08/09 08:23 CONFIRM #: [id number] documented in this encounter Plan of Treatment Not on filedocumented as of this encounter Visit Diagnoses Not on filedocumented in this encounter Care Teams Retail Beauty Specialist Relationship Specialty Start Date End Date Hansa Lewis APRN, PAPER FEEDER PCP - General 10/22/10 11/30/12 [address] [place] [address] documented as of this encounter
--- OUTSIDE RECORDS SUMMARY | 2022-04-16 08:12 | XMS_ITS | Encounter Summary ---
:1960 Author Organization [facility] Address [address] [place] [address] Care Team Providers Name Role Phone LiliaHuseyin churchjoao NGUYỄN CNP Primary Care Provider [phone] Encounter Details Date Type Department Care Team Description 09/09/2009 PN Conversion Only [place] [address] [address] [address] [place], [place] [address] (Wo rk) Social History Tobacco Use Types Packs/Day Years Used Date Smoking Tobacco: Never Assessed Sex Assigned at Date Recorded Not on file documented as of this encounter Plan of Treatment Not on filedocumented as of this encounter Procedures Procedure Name Priority Date/Time Associated Comments Diagnosis VITAMIN D 25 OH Routine 09/09/2009 12:12 Results for this PM CORE DROPPER procedure are i n the results section. LIPID PANEL AND Routine 09/09/2009 12:12 Results for this DIRECT LDL(IF NEEDED) PM CORE DROPPER proced ure are in the results section. INTACT PTH Routine 09/09/2009 12:12 Results for this PM CORE DROPPER procedure are i n the results section. CREATININE / GFR Routine 09/09/2009 12:12 Results for this PM CORE DROPPER procedure are i n the results section. COMPLETE BLOOD Routine 09/09/2009 12:12 Results f or this COUNT-NO DIFF PM CORE DROPPER procedure are in the results section. ELECTROLYTE PANEL Routine 09/09/2009 12:12 Result s for this PM CORE DROPPER procedure are i n the results section. PROTEIN, TOTAL Routine 09/09/2009 12:12 Results f or this (SERUM) PM CORE DROPPER procedure are i n the results section. PHOSPHORUS Routine 09/09/2009 12:12 Results for this PM CORE DROPPER procedure are i n the results section. CALCIUM Routine 09/09/2009 12:12 Results for this PM CORE DROPPER procedure are i n the results section. BUN Routine 09/09/2009 12:12 Results for this PM CORE DROPPER procedure are i n the results section. ALBUMIN Routine 09/09/2009 12:12 Results for this PM CORE DROPPER procedure are i n the results section. documented in this encounter Results Intact PTH (09/09/2009 12:12 PM CORE DROPPER) athologist Signature PTH 62 10 - 100 HP CONVERSION pg/mL Specimen (Source) Anatomical Collection Method Collection Time Re ceived Time Location / / Volume Laterality 09/09/2009 12:12 PM CORE DROPPER Terrence Hernandez MD LAB_1 Performing Organization Address City/[facility]/ZIP Code Phon e Number HP CONVERSION VITAMIN D 25 OH (09/09/2009 12:12 PM CORE DROPPER) athologist Signature Vitamin D 25 Oh 38 30 - 80 HP CONVERSION ng/mL Comment: REFERENCE INTERVAL: Vitamin D, 25-Hydrox y This assay accurately quantifies the sum of vitamin D3, 25-hydroxy and vitamin D2, 25-hydroxy. 0-17 years: Deficiency: less than 20 ng/mL Optimum level: greater than or equal to 20 ng/mL* *(Robin CL et al. Pediatrics 2008; 122: 1128-38.) 18 years and older: Deficiency: Less than 20 ng/mL Insufficiency: 20-29 ng/mL Optimum Level: 30-80 ng/mL Possible Toxicity: Greater than 150 ng/m L Performed at [address] [place] [address] 8410 8 Specimen (Source) Anatomical Collection Method Collection Time Re ceived Time Location / / Volume Laterality 09/09/2009 12:12 PM CORE DROPPER Terrence Hernandez MD LAB_1 Performing Organization Address City/State/[facility] Code Phon e Number HP CONVERSION Hemogram/Plts (09/09/2009 12:12 PM CORE DROPPER) athologist Signature White Blood Cell 6.6 3.8 - 11.0 HP CONVERSIO N Count k/cmm Red Blood Cell 4.83 4.20 - HP CONVERSION Count 5.90 m/cmm Hemoglobin 14.9 13.4 - HP CONVERSION 17.5 gm/dL Hematocrit 42.8 39.0 - HP CONVERSION 51.0 % Mean Corpuscular 88.5 80.0 - HP CONVERSION Volume 100.0 fl Mean Corpuscular 30.7 27.0 - HP CONVERSION Hemoglobin 34.0 pg Mean Corpuscular 34.7 32.0 - HP CONVERSION Hemoglobin Conc 36.5 gm/dL [place] RDW 12.5 11.0 - HP CONVERSION 15.0 % Platelet Count 301 140 - 450 HP CONVERSION k/cmm Specimen (Source) Anatomical Collection Method Collection Time Re ceived Time Location / / Volume Laterality 09/09/2009 12:12 PM CORE DROPPER Terrence Hernandez MD LAB_1 Performing Organization Address City/State/ZIP Code Phon e Number HP CONVERSION (ABNORMAL) Lipid Panel and Direct LDL(If Needed) (09/09/2009 12:12 PM CORE DROPPER) Patholo gist Method Time Signature Length Of Fast 12.0 Hours HP CONVERSION Cholesterol/HDL 6.0 No normal HP CONVERSION Ratio Screen range Cholesterol 204 (H) <200 mg/dL HP CONVERSION HDL Cholesterol 34 (L) >40 mg/dL HP CONVERSION Triglycerides 146 0 - 149 HP CONVERSION mg/dL LDL Calculated 141 (H) 0 - 130 HP CONVERSION mg/dL Comment: Specimen (Source) Anatomical Collection Method Collection Time Re ceived Time Location / / Volume Laterality 09/09/2009 12:12 PM CORE DROPPER Terrence Hernandez MD LAB_1 Performing Organization Address City/State/ZIP Code Phon e Number HP CONVERSION Electrolyte Panel (09/09/2009 12:12 PM CORE DROPPER) P athologist Signature Sodium 143 137 - 147 HP CONVERSION mEq/L Potassium 5.0 3.5 - 5.2 HP CONVERSION mEq/L Chloride 104 98 - 110 HP CONVERSION mEq/L Bicarbonate 29 23 - 33 HP CONVERSION mmol/L Specimen (Source) Anatomical Collection Method Collection Time Re ceived Time Location / / Volume Laterality 09/09/2009 12:12 PM CORE DROPPER Terrence Hernandez MD LAB_1 Performing Organization Address City/State/ZIP Code Phon e Number HP CONVERSION Protein, Total (Serum) (09/09/2009 12:12 PM CORE DROPPER) athologist Signature Protein Total, 7.3 5.7 - 8.3 HP CONVERSION Serum gm/dL Specimen (Source) Anatomical Collection Method Collection Time Re ceived Time Location / / Volume Laterality 09/09/2009 12:12 PM CORE DROPPER Terrence Hernandez MD LAB_1 Performing Organization Address City/State/ZIP Code Phon e Number HP CONVERSION Phosphorus (09/09/2009 12:12 PM CORE DROPPER) athologist Signature Phosphorus 3.8 2.5 - 4.5 HP CONVERSION Serum mg/dL Specimen (Source) Anatomical Collection Method Collection Time Re ceived Time Location / / Volume Laterality 09/09/2009 12:12 PM CORE DROPPER Terrence Hernandez MD LAB_1 Performing Organization Address [facility] Code Phon e Number HP CONVERSION Creatinine / GFR (09/09/2009 12:12 PM CORE DROPPER) athologist Signature Creatinine 1.2 0.4 - 1.3 HP CONVERSION Serum mg/dL Est GFR >60 >60 HP CONVERSION Am Comment: -Sammarinese and Ffa-Emyacaj-Cghndxf n reference range units: mL/min/1.73m2 Normal>60, moderate decrease 30 - 59, se alexia decrease 15 - 29, renal failure <15 mL/min/1.73 m2 NOTE: Choose the eGFR result above appro priate for the race of the patient. Est GFR Non-Afr Am >60 >60 HP CONVERSI ON Specimen (Source) Anatomical Collection Method Collection Time Re ceived Time Location / / Volume Laterality 09/09/2009 12:12 PM CORE DROPPER Terrence Hernandez MD LAB_1 Performing Organization Address City/State/ZIP Code Phon e Number HP CONVERSION Calcium (09/09/2009 12:12 PM CORE DROPPER) athologist Signature Calcium 10.1 8.5 - 10.5 HP CONVERSION mg/dL Specimen (Source) Anatomical Collection Method Collection Time Re ceived Time Location / / Volume Laterality 09/09/2009 12:12 PM CORE DROPPER Terrence Hernandez MD LAB_1 Performing Organization Address City/State/ZIP Code Phon e Number HP CONVERSION BUN (09/09/2009 12:12 PM CORE DROPPER) athologist Signature Blood Urea 20 5 - 26 HP CONVERSION Nitrogen mg/dL Specimen (Source) Anatomical Collection Method Collection Time Re ceived Time Location / / Volume Laterality 09/09/2009 12:12 PM CORE DROPPER Terrence Hernandez MD LAB_1 Performing Organization Address City/[facility]/ZIP Code Phon e Number HP CONVERSION Albumin (09/09/2009 12:12 PM CORE DROPPER) athologist Signature Albumin 4.8 3.4 - 5.0 HP CONVERSION g/dL Specimen (Source) Anatomical Collection Method Collection Time Re ceived Time Location / / Volume Laterality 09/09/2009 12:12 PM CORE DROPPER Terrence Hernandez MD LAB_1 Performing Organization Address City/[facility] Phon e Number HP CONVERSION documented in this encounter Visit Diagnoses Not on filedocumented in this encounter Care Teams Fuel Cell Assembler Relationship Specialty Start Date End Date Hansa Lewis, VETERINARIAN POULTRY, DUST OPERATOR PCP - General 10/22/10 11/30/12 [id number] [address] documented as of this encounter
--- OUTSIDE RECORDS SUMMARY | 2022-04-16 08:12 | XMS_ITS | Encounter Summary ---
:1960 Author Organization [facility] Address [address] [address] Care Team Providers Name Role Phone Huseyin Lewisjoao NGUYỄN CNP Primary Care Provider [phone] Encounter Details Date Type Department Care Team Description 02/17/2010 PN Conversion Only [place] [address] [address] [address] [place], [place] [address] (Wo rk) Social History Tobacco Use Types Packs/Day Years Used Date Smoking Tobacco: Never Assessed Sex Assigned at Date Recorded Not on file documented as of this encounter Plan of Treatment Not on filedocumented as of this encounter Procedures Procedure Name Priority Date/Time Associated Comments Diagnosis ALBUMIN/CREAT RATIO Routine 02/17/2010 3:21 PM Re sults for this CDT procedure are i n the results section. VITAMIN D 25 OH Routine 02/17/2010 3:17 PM Result s for this CDT procedure are i n the results section. INTACT PTH Routine 02/17/2010 3:17 PM Results f or this CDT procedure are i n the results section. CREATININE / GFR Routine 02/17/2010 3:17 PM Resul ts for this CDT procedure are i n the results section. COMPLETE BLOOD Routine 02/17/2010 3:17 PM Results for this COUNT-NO DIFF CDT procedure are in the results section. ELECTROLYTE PANEL Routine 02/17/2010 3:17 PM Resu lts for this CDT procedure are i n the results section. PROTEIN, TOTAL Routine 02/17/2010 3:17 PM Results for this (SERUM) CDT procedure are i n the results section. PHOSPHORUS Routine 02/17/2010 3:17 PM Results f or this CDT procedure are i n the results section. CALCIUM Routine 02/17/2010 3:17 PM Results f or this CDT procedure are i n the results section. BUN Routine 02/17/2010 3:17 PM Results f or this CDT procedure are i n the results section. ALBUMIN Routine 02/17/2010 3:17 PM Results f or this CDT procedure are i n the results section. documented in this encounter Results Microalb/Creat Ratio (02/17/2010 3:21 PM CDT) athologist Signature U Creat Random 170 mg/dL HP CONVERSION Microalbumin/Cr 4.7 0.0 - 30.0 HP CONVERSION eatinine Ratio Specimen (Source) Anatomical Collection Method Collection Time Re ceived Time Location / / Volume Laterality 02/17/2010 3:21 PM CDT Terrence Hernandez MD LAB_1 Performing Organization Address City/[facility]/ZIP Code Phon e Number HP CONVERSION Hemogram/Plts (02/17/2010 3:17 PM CDT) athologist Signature White Blood Cell 7.3 3.8 - 11.0 HP CONVERSIO N Count k/cmm Red Blood Cell 4.51 4.20 - HP CONVERSION Count 5.90 m/cmm Hemoglobin 14.1 13.4 - HP CONVERSION 17.5 g/dL Hematocrit 40.8 39.0 - HP CONVERSION 51.0 % Mean Corpuscular 90.4 80.0 - HP CONVERSION Volume 100.0 fL RDW 12.5 11.0 - HP CONVERSION 15.0 % Platelet Count 317 140 - 450 HP CONVERSION k/cmm Specimen (Source) Anatomical Collection Method Collection Time Re ceived Time Location / / Volume Laterality 02/17/2010 3:17 PM CDT Terrence Hernandez MD LAB_1 Performing Organization Address [facility]/ZIP Code Phon e Number HP CONVERSION (ABNORMAL) VITAMIN D 25 OH (02/17/2010 3:17 PM CDT) athologist Signature Vitamin D 25 24 (L) 30 - 80 HP CONVERSION Oh ng/mL Comment: REFERENCE INTERVAL: Vitamin D, 25-Hydrox [...] Greater than 150 ng/m L Performed at [facility] [address] [place] [address]10 8 Specimen (Source) Anatomical Collection Method Collection Time Re ceived Time Location / / Volume Laterality 02/17/2010 3:17 PM CDT Terrence Hernandez MD LAB_1 Performing Organization Address City/[facility] Phon e Number HP CONVERSION Intact PTH (02/17/2010 3:17 PM CDT) athologist Signature PTH 46 10 - 100 HP CONVERSION pg/mL Specimen (Source) Anatomical Collection Method Collection Time Re ceived Time Location / / Volume Laterality 02/17/2010 3:17 PM CDT Terrence Hernandez MD LAB_1 Performing Organization Address City/[facility] Code Phon e Number HP CONVERSION Electrolyte Panel (02/17/2010 3:17 PM CDT) athologist Signature Sodium 142 137 - 147 HP CONVERSION mEq/L Potassium 4.7 3.5 - 5.2 HP CONVERSION mEq/L Chloride 105 98 - 110 HP CONVERSION mEq/L Bicarbonate 28 23 - 33 HP CONVERSION mmol/L Specimen (Source) Anatomical Collection Method Collection Time Re ceived Time Location / / Volume Laterality 02/17/2010 3:17 PM CDT Terrence Hernandez MD LAB_1 Performing Organization Address City/[facility]/ZIP Code Phon e Number HP CONVERSION Protein, Total (Serum) (02/17/2010 3:17 PM CDT) athologist Signature Protein Total, 7.0 5.7 - 8.3 HP CONVERSION Serum g/dL Specimen (Source) Anatomical Collection Method Collection Time Re ceived Time Location / / Volume Laterality 02/17/2010 3:17 PM CDT Terrence Hernandez MD LAB_1 Performing Organization Address City/[facility]/ZIP Code Phon e Number HP CONVERSION Phosphorus (02/17/2010 3:17 PM CDT) athologist Signature Phosphorus 3.9 2.5 - 4.5 HP CONVERSION Serum mg/dL Specimen (Source) Anatomical Collection Method Collection Time Re ceived Time Location / / Volume Laterality 02/17/2010 3:17 PM CDT Terrence Hernandez MD LAB_1 Performing Organization Address [facility] Code Phon e Number HP CONVERSION (ABNORMAL) Creatinine / GFR (02/17/2010 3:17 PM CDT) [facility] Signature Creatinine 1.5 (H) 0.4 - 1.3 HP CONVERSION Serum mg/dL Est GFR >60 >60 HP CONVERSION Am mL/min/1.7 Est GFR Non-Afr 50 (L) >60 HP CONVERSION Am mL/min/1.7 Comment: Normal>60, moderate decrease 30 - 59, se alexia decrease 15 - 29, renal failure <15 mL/min/1.73 m2 NOTE: ??Choose the eGFR result above jamie ropriate for the race of the patient. Specimen (Source) Anatomical Collection Method Collection Time Re ceived Time Location / / Volume Laterality 02/17/2010 3:17 PM CDT Terrence Hernandez MD LAB_1 Performing Organization Address City/[facility]/ZIP Code Phon e Number HP CONVERSION Calcium (02/17/2010 3:17 PM CDT) athologist Signature Calcium 10.4 8.5 - 10.5 HP CONVERSION mg/dL Specimen (Source) Anatomical Collection Method Collection Time Re ceived Time Location / / Volume Laterality 02/17/2010 3:17 PM CDT Terrence Hernandez MD LAB_1 Performing Organization Address City/[facility]/ZIP Code Phon e Number HP CONVERSION BUN (02/17/2010 3:17 PM CDT) athologist Signature Blood Urea 24 5 - 26 HP CONVERSION Nitrogen mg/dL Specimen (Source) Anatomical Collection Method Collection Time Re ceived Time Location / / Volume Laterality 02/17/2010 3:17 PM CDT Terrence Hernandez MD LAB_1 Performing Organization Address City/State/ZIP Code Phon e Number HP CONVERSION Albumin (02/17/2010 3:17 PM CDT) P athologist Signature Albumin 4.7 3.4 - 5.0 HP CONVERSION g/dL Specimen (Source) Anatomical Collection Method Collection Time Re ceived Time Location / / Volume Laterality 02/17/2010 3:17 PM CDT Terrence Hernandez MD LAB_1 Performing Organization Address City/[facility]/ZIP [facility] Phon e Number HP CONVERSION documented in this encounter Visit Diagnoses Not on filedocumented in this encounter Care Teams Podiatry Assistant Relationship Specialty Start Date End Date Hansa Lewis APRN, CARPENTER AND JOINER PCP - General 10/22/10 11/30/12 [address] [id number] documented as of this encounter
--- OUTSIDE RECORDS SUMMARY | 2022-04-16 08:12 | XMS_ITS | Encounter Summary ---
:1960 Author Organization [facility] Address [address], [place] [address] Care Team Providers Name Role Phone Lilialynnette Hansa NGUYỄN CNP Primary Care Provider [phone] Reason for Visit Reason Comments Other Encounter Details Date Type Department Care Team Description 07/07/2010 Telephone Specialty Center [address] [facility], Message Other [address] [place] [address] Social History Tobacco Use Types Packs/Day Years Used Date Smoking Tobacco: Never Assessed Sex Assigned at Date Recorded Not on file documented as of this encounter Progress Notes Enzo Yu - 07/07/2010 10:36 AM CST Phone Note filed by Enzo uY at 11/12/10137 Author: Enzo Yu Service: (none) Author Type: (none) Filed: 11/12/10137 Note Time: 07/07/10 1036 Status: Signed Plastics Fabricator And Assembler: Jacquelyn Conversion (Physician) PRESCRIPTION REFILL Please provide enough refills to last until patient's next visit. Comment:-Last appt 09-13-09; no future appts Pharmacy Seq #:-[phone] [facility]-Phone[facility]ax[facility] ph[facility]fx [phone] [facility] Name:-David Drug Name/Strength:-Prilosec 20mg caps Sig: Dose/Route/Freq:-1 cap daily Quantity & Last Fill:-06/07/10 *ECODE~PNRF Created on 07Jul2010 10:36am by ENZO YU On 07Jul2010 12:47pm REYNOLD JOHNSON wrote: Qty 30 with 1 refill faxed into above pharmacy per standing order with note stating patient needs to schedule follow up visit. Acknowledged by EAV HERRING on 2:20pm MAN documented in this encounter Plan of Treatment Not on filedocumented as of this encounter Visit Diagnoses Not on filedocumented in this encounter Care Teams Production Analyst Relationship Specialty Start Date End Date Hansa Lewis, DELMA, MEDICATION ASSISTANT PCP - General 10/22/10 11/30/12 [address] [id number] documented as of this encounter
--- OUTSIDE RECORDS SUMMARY | 2022-04-16 08:12 | XMS_ITS | Encounter Summary ---
:1960 Author [facility] Address [address], [place] [address] Care Team Providers Name Role Phone Hansa Lewis APRN, CNP Primary Care Provider [phone] Reason for Visit Reason Comments Other Encounter Details Date Type Department Care Team Description 07/06/2010 Telephone Specialty Center 393 [address] Nephrology Center, Message Other [address] [place] [address] Social History Tobacco Use Types Packs/Day Years Used Date Smoking Tobacco: Never Assessed Sex Assigned at Date Recorded Not on file documented as of this encounter Progress Notes Center, Message - 07/06/2010 11:40 AM CST Phone Note filed by 8bit at 11/12/10130 Author: 8bit Service: (none) Author Type: (none) Filed: 11/12/10130 Note Time: 07/06/10 1140 Status: Signed Brake Adjuster: 8bit (Resource) PRESCRIPTION REFILL Please provide enough refills to last until patient's next visit. Comment:-lv 09/13/09 no future appt Pharmacy Seq #:-[phone] [facility]ax[facility] [phone] or City:-[place] Clinician Name:-David Drug Name/Strength:-Tenormin 50mg tab Sig: Dose/Route/Freq:-take one tab once daily Quantity & Last Fill:-#30 06/06/10 *ECODE~PNRF Created on 06Jul2010 11:40am by JULIO CÉSAR LEACH On 06Jul2010 3:40pm REYNOLD JOHNSON wrote: Qty 30 with 0 refills faxed into above pharmacy per standing order. Acknowledged by EVA HERRING on 3:55pm ARCHITECT documented in this encounter Plan of Treatment Not on filedocumented as of this encounter Visit Diagnoses Not on filedocumented in this encounter Care Teams Machine Carton Marker Relationship Specialty Start Date End Date Hansa Lewis APRN, RN CASE MANAGER HOSPICE PCP - General 10/22/10 11/30/12 [address] [id number] documented as of this encounter
--- OUTSIDE RECORDS SUMMARY | 2022-04-16 08:12 | XMS_ITS | Encounter Summary ---
:1960 Author Organization [facility] Address [address] [address] Care Team Providers Name Role Phone Huseyin Lewisjoao NGUYỄN CNP Primary Care Provider [phone] Encounter Details Date Type Department Care Team Description 03/02/2009 PN Conversion Only [place] [address] [address] [address] [place], [place] [address] (Wo rk) Social History Tobacco Use Types Packs/Day Years Used Date Smoking Tobacco: Never Assessed Sex Assigned at Date Recorded Not on file documented as of this encounter Plan of Treatment Not on filedocumented as of this encounter Procedures Procedure Name Priority Date/Time Associated Comments Diagnosis ELECTROLYTES (NA, K, Routine 03/02/2009 2:05 PM R esults for this CL, BICARB) CDT procedure are i n the results section. VITAMIN D 25 OH Routine 03/02/2009 2:05 PM Result s for this CDT procedure are i n the results section. INTACT PTH Routine 03/02/2009 2:05 PM Results f or this CDT procedure are i n the results section. CREATININE / GFR Routine 03/02/2009 2:05 PM Resul ts for this CDT procedure are i n the results section. PROTEIN, TOTAL Routine 03/02/2009 2:05 PM Results for this (SERUM) CDT procedure are i n the results section. PHOSPHORUS Routine 03/02/2009 2:05 PM Results f or this CDT procedure are i n the results section. CALCIUM Routine 03/02/2009 2:05 PM Results f or this CDT procedure are i n the results section. BUN Routine 03/02/2009 2:05 PM Results f or this CDT procedure are i n the results section. ALBUMIN Routine 03/02/2009 2:05 PM Results f or this CDT procedure are i n the results section. documented in this encounter Results Albumin (03/02/2009 2:05 PM CDT) athologist Signature Albumin 4.7 3.4 - 5.0 HP CONVERSION g/dL Specimen (Source) Anatomical Collection Method Collection Time Re ceived Time Location / / Volume Laterality 03/02/2009 2:05 PM CDT Terrence Hernandez MD LAB_1 Performing Organization Address City/State/ZIP Code Phon e Number HP CONVERSION BUN (03/02/2009 2:05 PM CDT) athologist Signature Blood Urea 17 5 - 26 HP CONVERSION Nitrogen mg/dL Specimen (Source) Anatomical Collection Method Collection Time Re ceived Time Location / / Volume Laterality 03/02/2009 2:05 PM CDT Terrence Hernandez MD LAB_1 Performing Organization Address City/State/ZIP Code Phon e Number HP CONVERSION Calcium (03/02/2009 2:05 PM CDT) athologist Signature Calcium 10.1 8.5 - 10.5 HP CONVERSION mg/dL Specimen (Source) Anatomical Collection Method Collection Time Re ceived Time Location / / Volume Laterality 03/02/2009 2:05 PM CDT Terrence Hernandez MD LAB_1 Performing Organization Address City/State/ZIP Code Phon e Number HP CONVERSION (ABNORMAL) Creatinine / GFR (03/02/2009 2:05 PM CDT) Analysis Performed At Patho logist Time Signature Creatinine 1.5 (H) 0.4 - 1.3 HP CONVERSION Serum mg/dL Est GFR >60 >60 HP CONVERSION Am Comment: -Samoan and Flp-Brqfnlk-Nljyowb n reference range units: mL/min/1.73m2 Normal>60, moderate decrease 30 - 59, se alexia decrease 15 - 29, renal failure <15 mL/min/1.73 m2 NOTE: Choose the eGFR result above appro priate for the race of the patient. Est GFR Non-Afr Am 50 (L) >60 HP CONVERSI ON Specimen (Source) Anatomical Collection Method Collection Time Re ceived Time Location / / Volume Laterality 03/02/2009 2:05 PM CDT Terrence Hernandez MD LAB_1 Performing Organization Address City/[facility]/ZIP Code Phon e Number HP CONVERSION Phosphorus (03/02/2009 2:05 PM CDT) athologist Signature Phosphorus 4.4 2.5 - 4.5 HP CONVERSION Serum mg/dL Specimen (Source) Anatomical Collection Method Collection Time Re ceived Time Location / / Volume Laterality 03/02/2009 2:05 PM CDT Terrence Hernandez MD LAB_1 Performing Organization Address [facility] Code Phon e Number HP CONVERSION Protein, Total (Serum) (03/02/2009 2:05 PM CDT) athologist Signature Protein Total, 7.6 5.7 - 8.3 HP CONVERSION Serum gm/dL Specimen (Source) Anatomical Collection Method Collection Time Re ceived Time Location / / Volume Laterality 03/02/2009 2:05 PM CDT Terrence Hernandez MD LAB_1 Performing Organization Address [facility] Code Phon e Number HP CONVERSION Electrolytes (NA, K, CL, Bicarb) (03/02/2009 2:05 PM CDT) athologist Signature Sodium 138 137 - 147 HP CONVERSION mEq/L Potassium 4.4 3.5 - 5.2 HP CONVERSION mEq/L Chloride 103 98 - 110 HP CONVERSION mEq/L Bicarbonate 28 23 - 33 HP CONVERSION mmol/L Specimen (Source) Anatomical Collection Method Collection Time Re ceived Time Location / / Volume Laterality 03/02/2009 2:05 PM CDT Terrence Hernandez MD LAB_1 Performing Organization Address City/[facility]/ZIP Code Phon e Number HP CONVERSION (ABNORMAL) Vitamin D 25 OH (03/02/2009 2:05 PM CDT) athologist Signature Vitamin D 25 25 (L) 30 - 80 HP CONVERSION Oh ng/mL Comment: TEST INFORMATION: VITAMIN D, 25-HYDROXY This assay accurately quantifies the sum of vitamin D3, 25-hydroxy and vitamin D2, 25-hydroxy. Deficiency: ??Less than 20 ng/mL Insufficiency: ??20-29 ng/mL Optimum Level: ??30-80 ng/mL Possible Toxicity: ??Greater than 80 ng/ mL Performed at [address] [address] [place] [address]10 8 Specimen (Source) Anatomical Collection Method Collection Time Re ceived Time Location / / Volume Laterality 03/02/2009 2:05 PM CDT Terrence Hernandez MD LAB_1 Performing Organization Address City/[facility] Phon e Number HP CONVERSION Intact PTH (03/02/2009 2:05 PM CDT) athologist Signature PTH 57 10 - 100 HP CONVERSION pg/mL Specimen (Source) Anatomical Collection Method Collection Time Re ceived Time Location / / Volume Laterality 03/02/2009 2:05 PM CDT Terrence Hernandez MD LAB_1 Performing Organization Address City/[facility] Phon e Number HP CONVERSION documented in this encounter Visit Diagnoses Not on filedocumented in this encounter Care Teams Bit Welder Relationship Specialty Start Date End Date Hansa Lewis APRN, OTHER SPATIAL SCIENTIST PCP - General 10/22/10 11/30/[address] [place] [address] documented as of this encounter
--- OUTSIDE RECORDS SUMMARY | 2022-04-16 08:12 | XMS_ITS | Encounter Summary ---
:1960 Author Organization [facility] Address [address] [address] Care Team Providers Name Role Phone Hansa Lewis APRN, CNP Primary Care Provider [phone] Reason for Visit Reason Comments Other Encounter Details Date Type Department Care Team Description 01/30/2010 Telephone [facility] 1 [facility], Message Other [address] [place] [address] Social History Tobacco Use Types Packs/Day Years Used Date Smoking Tobacco: Never Assessed Sex Assigned at Date Recorded Not on file documented as of this encounter [facility], Message - 01/30/2010 9:10 AM CDT Phone Note filed by [employer] at 11/11/10 6492 Author: [employer] Service: (none) Author Type: (none) Filed: 11/11/10 1219 Note Time: 01/30/10909 Status: Signed Pollution Control Chemist: [employer] (Resource) PRESCRIPTION REFILL Please provide enough refills to last until patient's next visit. Comment:-Last appt 09-13-09; no future appts Pharmacy Seq #:-[phone] [facility]ax[facility] [phone] [facility]David Drug Name/Strength:-Tenormin 50MG Tab Sig: Dose/Route/Freq:-1 tab daily Quantity & Last Fill:-#30 12-29-09 *ECODE~PNRF Created on 30Jan2010 9:10am by BALJIT BARRAZA On 30Jan2010 10:17am REYNOLD JOHNSON wrote: Qty 30 with 4 refills faxed into above pharmacy per standing order. Acknowledged by EVA HERRING on 4:05pm OL OF NURSING DIRECTOR documented in this encounter Plan of Treatment Not on filedocumented as of this encounter Visit Diagnoses Not on filedocumented in this encounter Care Teams Balancer Scale Relationship Specialty Start Date End Date Hansa Lewis APRN, ASSEMBLY MACHINE SET UP MECHANIC PCP - General 10/22/10 11/30/12 [address] [place] [address] documented as of this encounter
--- OUTSIDE RECORDS SUMMARY | 2022-04-16 08:12 | XMS_ITS | Encounter Summary ---
:[address] [facility] Address [address], [place] [address] Care Team Providers Name Role Phone Hansa Lewis APRN, CNP Primary Care Provider [phone] Reason for Visit Reason Comments Other Encounter Details Date Type Department Care Team Description 03/29/2010 Telephone Specialty Center 393 1 Nephrology Center, Message Other [address] [place] [address] Social History Tobacco Use Types Packs/Day Years Used Date Smoking Tobacco: Never Assessed Sex Assigned at Date Recorded Not on file documented as of this encounter [facility], Message - 03/29/2010 12:29 PM CDT Phone Note filed by [email or web address] at 11/11/101710 Author: [email or web address] Service: (none) Author Type: (none) Filed: 11/11/101710 Note Time: 03/29/10 1229 Status: Signed Lockstitch Cup Setter: [email or web address] (Resource) PRESCRIPTION REFILL Please provide enough refills to last until patient's next visit. Comment:-Last appt 09-13-09; no future appts Pharmacy Seq #:-[phone] Pharmacy Name-Phone[facility]ax[facility]fx [phone] [facility]David Drug Name/Strength:-Prinivil 10MG Tab Sig: Dose/Route/Freq:-1 tab daily Quantity & Last Fill:-#30 02-26-10 *ECODE~PNRF Created on 29Mar2010 12:29pm by BALJIT BARRAZA On 29Mar2010 1:06pm REYNOLD JOHNSON wrote: Qty 30 with 3 refills faxed into above pharmacy per standing order. Acknowledged by EVA HERRING on 7:46am CAL AFFAIRS SPECIALIST documented in this encounter Plan of Treatment Not on filedocumented as of this encounter Visit Diagnoses Not on filedocumented in this encounter Care Teams Rn Appeals Relationship Specialty Start Date End Date Hansa Lewis APRN, PULPER PCP - General 10/22/10 11/30/12 [address] [place] [address] documented as of this encounter
--- OUTSIDE RECORDS SUMMARY | 2022-04-16 08:13 | XMS_ITS | Encounter Summary ---
:1960 Author Organization [facility] Address [address] [place] [address] Care Team Providers Name Role Phone Hansa Lewis APRN, CNP Primary Care Provider [phone] Reason for Visit Reason Comments Other Encounter Details Date Type Department Care Team Description 05/27/2008 Telephone [facility], Message Other [address] [place] [address] Social History Tobacco Use Types Packs/Day Years Used Date Smoking Tobacco: Never Assessed Sex Assigned at Date Recorded Not on file documented as of this encounter [facility], Message - 05/27/2008 10:24 AM CST Phone Note filed by [employer] at 11/09/10 0995 Author: [employer] Service: (none) Author Type: (none) Filed: 11/09/10 1707 Note Time: 05/27/08 1024 Status: Signed Fire Control Technician: [employer] Lab/Radiology Requests Caller Name/Relationship: Veronica/ Primary Fiberglass Quality Technician: Joshua What test is needed and when? Pt wondering if he shoule have labs done prior to upcoming appt. Also requests return call from Hansa Lewis or nurse,, he has been off of his medication couple days, and is getting headaches and weight gain. wondering if he should continue not taking it for the 2 weeks? GI appt 08/09, wondering if can be done any sooner. Why is test needed/requested? see above *If symptom related, send to triage Dance Critic: Veronica Best call back number: [phone] Is it OK to leave a confidential message on this voicemail? yes *ECODE~PNLXO2 Created on 27May2008 10:24am by KAM DANIELLE On 27May2008 10:36am CHIRAG ANDERS wrote: Few questions; 1) has been off Diovan since Saturday. His appt. is . He wants to know if he can have his labs done on Saturday the ? 2) Since he has been off the Diovan, he has gained 8# and feels floated. No specific edema in feet or hands, etc. Also is having headaches.3) He was to see Dr. Nelson in GI. The soonest appt. He could get is 08/09-is this ok? On 27May2008 12:12pm HANSA LEWIS wrote: repeat Cr and follow up in clinic for BP and wt monitoring Dx 995.2 Acknowledged by HANSA LEWIS on 12:12pm On 27May2008 2:00pm AVTAR FABIAN wrote: pt notified he made an apt for 11-7 and will stop at the lab for a STAT Cr. orders sent to lab Acknowledged by AVTAR FABIAN on 2:00pm UNITY DEVELOPMENT OFFICER documented in this encounter Plan of Treatment Not on filedocumented as of this encounter Visit Diagnoses Not on filedocumented in this encounter Care Teams Whitewasher Relationship Specialty Start Date End Date Hansa Lewis APRN, GROUND DEFENCE OFFICER PCP - General 10/22/10 11/30/12 [address] [place] [address] documented as of this encounter
--- OUTSIDE RECORDS SUMMARY | 2022-04-16 08:13 | XMS_ITS | Encounter Summary ---
:1960 Author Organization [facility] Address [address] [place] [address] Care Team Providers Name Role Phone Lilialynnette Hansa NGUYỄN CNP Primary Care Provider Encounter Details Date Type Department Care Team Description 06/01/2008 PN Conversion Only [facility] [address] [facility] [address] Social History Tobacco Use Types Packs/Day Years Used Date Smoking Tobacco: Never Assessed Sex Assigned at Date Recorded Not on file documented as of this encounter Plan of Treatment Not on filedocumented as of this encounter Procedures Procedure Name Priority Date/Time Associated Diagnosis Comme nts US RENAL W BLADDER Routine 06/01/2008 2:53 PM Res ults for this METER MAINTENANCE PERSON procedure are i n the results section. documented in this encounter Results US Renal W Bladder (06/01/2008 2:53 PM METER MAINTENANCE PERSON) Anatomical Region Laterality Modality Abdomen, Pelvis Other Specimen (Source) Anatomical Location Collection Method / Collectio n Time Received Time / Laterality Volume Narrative 06/01/2008 2:53 PM METER MAINTENANCE PERSON Right kidney measures 9.2 cm longitudinally and left kidney measures 9.6 cm longitudinally. ??No suspicious r enal masses nor obstruction. Bladder grossly unremarkable. [id number]/rubén Dictating LARRY CHERY MD Procedure Note Larry Alexis - 09/22/2016 Right kidney measures 9.2 cm longitudina lly and left kidney measures 9.6 cm longitudinally. No suspicious fransico al masses nor obstruction. Bladder grossly unremarkable. [id number]/rubén Dictating LARRY CHERY MD Hansa Eaton MASS SPECTROSCOPIST, WEIGHER AND CHARGER [facility] documented in this encounter Visit Diagnoses Not on filedocumented in this encounter Care Teams Storage Solutions Architect Relationship Specialty Start Date End Date Hansa Lewis APRN, CNP PCP - General 10/22/10 11/30/12 [address] [place] [address] documented as of this encounter
--- OUTSIDE RECORDS SUMMARY | 2022-04-16 08:13 | XMS_ITS | Encounter Summary ---
:1960 Author Organization [facility] Address [address], [place] [address] Care Team Providers Name Role Phone Hansa Lewis APRN, [facility] Primary Care Provider [phone] Encounter Details Date Type Department Care Team Description 07/28/2007 PN Conversion Only [place] CONVERSIO N Hansa Lewis APRN, [address] [place] [address] [facility] [address] [place] [address] (Wo rk) Social History Tobacco Use Types Packs/Day Years Used Date Smoking Tobacco: Never Assessed Sex Assigned at Date Recorded Not on file documented as of this encounter Plan of Treatment Not on filedocumented as of this encounter Procedures Procedure Name Priority Date/Time Associated Comments Diagnosis ELECTROLYTES (NA, K, Routine 07/28/2007 5:09 PM R esults for this CL, BICARB) PARTS COUNTERPERSON procedure are i n the results section. CREATININE / GFR Routine 07/28/2007 5:09 PM Resul ts for this PARTS COUNTERPERSON procedure are i n the results section. ALT (SGPT) Routine 07/28/2007 5:09 PM Results f or this PARTS COUNTERPERSON procedure are i n the results section. AST Routine 07/28/2007 5:09 PM Results f or this PARTS COUNTERPERSON procedure are i n the results section. LD TOTAL (LDH) Routine 07/28/2007 5:09 PM Results for this PARTS COUNTERPERSON procedure are i n the results section. BUN Routine 07/28/2007 5:09 PM Results f or this PARTS COUNTERPERSON procedure are i n the results section. BILIRUBIN, TOTAL Routine 07/28/2007 5:09 PM Resul ts for this PARTS COUNTERPERSON procedure are i n the results section. documented in this encounter Results ALT (SGPT) (07/28/2007 5:09 PM PARTS COUNTERPERSON) [facility] Method Time Signature Alanine 53 4 - 55 HP CONVERSION Aminotransferase U/L Specimen (Source) Anatomical Collection Method Collection Time Re ceived Time Location / / Volume Laterality 07/28/2007 5:09 PM PARTS COUNTERPERSON Hansa Lewis APRYARED Ma LAB_1 Performing Organization Address City/[facility] Phon e Number HP CONVERSION AST (07/28/2007 5:09 PM PARTS COUNTERPERSON) [facility] Method Time Signature Aspartate 35 0 - 45 HP CONVERSION Aminotransferase U/L Specimen (Source) Anatomical Collection Method Collection Time Re ceived Time Location / / Volume Laterality 07/28/2007 5:09 PM PARTS COUNTERPERSON Hansa Lewis YARED NGUYỄN LAB_1 Performing Organization Address [facility] Phon e Number HP CONVERSION (ABNORMAL) Bilirubin, Total (07/28/2007 5:09 PM PARTS COUNTERPERSON) athologist Signature Bilirubin 1.3 (H) 0.2 - 1.2 HP CONVERSION Total mg/dL Specimen (Source) Anatomical Collection Method Collection Time Re ceived Time Location / / Volume Laterality 07/28/2007 5:09 PM PARTS COUNTERPERSON Hansa Lewis APRYARED Ma LAB_1 Performing Organization Address [facility] Code Phon e Number HP CONVERSION BUN (07/28/2007 5:09 PM PARTS COUNTERPERSON) P athologist Signature Blood Urea 21 5 - 26 HP CONVERSION Nitrogen mg/dL Specimen (Source) Anatomical Collection Method Collection Time Re ceived Time Location / / Volume Laterality 07/28/2007 5:09 PM PARTS COUNTERPERSON Hansa Lewis APRYARED Ma LAB_1 Performing Organization Address [facility] Phon e Number HP CONVERSION (ABNORMAL) Creatinine / GFR (07/28/2007 5:09 PM PARTS COUNTERPERSON) Analysis Performed At Patho logist Time Signature Creatinine 1.4 (H) 0.4 - 1.3 HP CONVERSION Serum mg/dL Est GFR >60 >60 HP CONVERSION Am Est GFR Non-Afr 55 (L) >60 HP CONVERSION Am Comment: -Gambian and Bee-Luwlybk-Epykkez n reference range units: mL/min/1.73m2 Normal>60, moderate decrease 30 - 59, se alexia decrease 15 - 29, renal failure <15 mL/min/1.73 m2 Specimen (Source) Anatomical Collection Method Collection Time Re ceived Time Location / / Volume Laterality 07/28/2007 5:09 PM PARTS COUNTERPERSON Hansa Lewis APRN, CNP LAB_1 Performing Organization Address [facility] Phon e Number HP CONVERSION (ABNORMAL) LD Total (LDH) (07/28/2007 5:09 PM PARTS COUNTERPERSON) Patholo gist Method Time Signature Lactic Acid 181 (H) 90 - 180 HP CONVERSION Dehydrogenase U/L Specimen (Source) Anatomical Collection Method Collection Time Re ceived Time Location / / Volume Laterality 07/28/2007 5:09 PM PARTS COUNTERPERSON Hansa Lewis APRN, CNP LAB_1 Performing Organization Address [facility] Phon e Number HP CONVERSION Electrolytes (NA, K, CL, Bicarb) (07/28/2007 5:09 PM PARTS COUNTERPERSON) P athologist Signature Sodium 140 137 - 147 HP CONVERSION mEq/L Potassium 4.6 3.5 - 5.2 HP CONVERSION mEq/L Chloride 105 98 - 110 HP CONVERSION mEq/L Bicarbonate 28 23 - 33 HP CONVERSION mmol/L Specimen (Source) Anatomical Collection Method Collection Time Re ceived Time Location / / Volume Laterality 07/28/2007 5:09 PM PARTS COUNTERPERSON Hansa Lewis APRN, CNP LAB_1 Performing Organization Address [facility] Phon e Number HP CONVERSION documented in this encounter Visit Diagnoses Not on filedocumented in this encounter Care Teams Superintendent Building Relationship Specialty Start Date End Date Hansa Lewis APRN, CNP PCP - General 10/22/10 11/30/[address] [place], [place] [address] documented as of this encounter
--- OUTSIDE RECORDS SUMMARY | 2022-04-16 08:13 | XMS_ITS | Encounter Summary ---
:1960 Author Organization [facility] Address [address], [place] [address] Care Team Providers Name Role Phone Hansa Lewis APRN, [facility] Primary Care Provider [phone] Encounter Details Date Type Department Care Team Description 05/28/2008 PN Conversion Only [place] CONVERSIO N Hansa Lewis APRN, [address] [place] [address] [address] [facility] [address] [place], [place] [address] (Wo rk) Social History Tobacco Use Types Packs/Day Years Used Date Smoking Tobacco: Never Assessed Sex Assigned at Date Recorded Not on file documented as of this encounter Plan of Treatment Not on filedocumented as of this encounter Procedures Procedure Name Priority Date/Time Associated Diagnosis Comme nts CREATININE / GFR Routine 05/28/2008 2:24 PM Resul ts for this VACUUM METALIZING SUPERVISOR procedure are i n the results section. documented in this encounter Results (ABNORMAL) Creatinine / GFR (05/28/2008 2:24 PM VACUUM METALIZING SUPERVISOR) Analysis Performed At Patho logist Time Signature Creatinine 1.5 (H) 0.4 - 1.3 HP CONVERSION Serum mg/dL Est GFR >60 >60 HP CONVERSION Am Comment: -Sierra Leonean and Dkx-Oyfogyn-Hhipuzu n reference range units: mL/min/1.73m2 Normal>60, moderate decrease 30 - 59, se alexia decrease 15 - 29, renal failure <15 mL/min/1.73 m2 Est GFR Non-Afr Am 50 (L) >60 HP CONVERSI ON Specimen (Source) Anatomical Collection Method Collection Time Re ceived Time Location / / Volume Laterality 05/28/2008 2:24 PM VACUUM METALIZING SUPERVISOR Hansa Lewis APRN, CNP LAB_1 Performing Organization Address City/State/ZIP Code Phon e Number HP CONVERSION documented in this encounter Visit Diagnoses Not on filedocumented in this encounter Care Teams Director Museum Or Zoo Relationship Specialty Start Date End Date Hansa Lewis APRN, CNP PCP - General 10/22/10 11/30/12 [address] [place] [address] documented as of this encounter
--- OUTSIDE RECORDS SUMMARY | 2022-04-16 08:13 | XMS_ITS | Encounter Summary ---
:1960 [facility] Address [address], [place] [address] Care Team Providers Name Role Phone Hansa Lewis APRN, [facility] Primary Care Provider [phone] Encounter Details Date Type Department Care Team Description 10/14/2007 PN Conversion Only [place] [facility] Hansa Lewis APRN, [address] [place] [address] [address] [place] [address] (Wo rk) Social History Tobacco Use Types Packs/Day Years Used Date Smoking Tobacco: Never Assessed Sex Assigned at Date Recorded Not on file documented as of this encounter Plan of Treatment Not on filedocumented as of this encounter Procedures Procedure Name Priority Date/Time Associated Comments Diagnosis GLUCOSE Routine 10/14/2007 9:00 AM Results f or this CDT procedure are i n the results section. LIPID PANEL AND Routine 10/14/2007 9:00 AM Result s for this DIRECT LDL(IF CDT procedure are in NEEDED) the results section. CREATININE / GFR Routine 10/14/2007 9:00 AM Resul ts for this CDT procedure are i n the results section. HGB A1C Routine 10/14/2007 9:00 AM Results f or this CDT procedure are i n the results section. documented in this encounter Results Creatinine / GFR (10/14/2007 9:00 AM CDT) P athologist Signature Creatinine 1.3 0.4 - 1.3 HP CONVERSION Serum mg/dL Est GFR >60 >60 HP CONVERSION Am Est GFR Non-Afr 60 >60 HP CONVERSION Am Comment: -Liberian and Pxn-Bcchuxl-Ajlgorn n reference range units: mL/min/1.73m2 Normal>60, moderate decrease 30 - 59, se alexia decrease 15 - 29, renal failure <15 mL/min/1.73 m2 Specimen (Source) Anatomical Collection Method Collection Time Re ceived Time Location / / Volume Laterality 10/14/2007 9:00 AM CDT Hansa Lewis YARED NGUYỄN LAB_1 Performing Organization Address [facility] Phon e Number HP CONVERSION (ABNORMAL) Glucose (10/14/2007 9:00 AM CDT) P athologist Signature Length Of Fast 12.0 Hours HP CONVERSION Lab Glucose 105 (H) 60 - 100 HP CONVERSION mg/dL Specimen (Source) Anatomical Collection Method Collection Time Re ceived Time Location / / Volume Laterality 10/14/2007 9:00 AM CDT Hansa Lewis YARED NGUYỄN LAB_1 Performing Organization Address [facility] Phon e Number HP CONVERSION (ABNORMAL) Lipid Panel and Direct LDL(If Needed) (10/14/2007 9:00 AM CDT) [facility] Method Time Signature Length Of Fast 12.0 Hours HP CONVERSION Cholesterol/HDL 5.7 No normal HP CONVERSION Ratio Screen range Cholesterol 210 (H) <200 mg/dL HP CONVERSION HDL Cholesterol 37 (L) >40 mg/dL HP CONVERSION Triglycerides 168 (H) 0 - 149 HP CONVERSION mg/dL LDL Calculated 139 (H) 0 - 130 HP CONVERSION mg/dL Comment: Specimen (Source) Anatomical Collection Method Collection Time Re ceived Time Location / / Volume Laterality 10/14/2007 9:00 AM CDT Hansa Lewis YARED NGUYỄN LAB_1 Performing Organization Address City/[facility] Phon e Number HP CONVERSION Hgb A1c (10/14/2007 9:00 AM CDT) P athologist Signature HGB A1C 5.5 <6.0 % HP CONVERSION Specimen (Source) Anatomical Collection Method Collection Time Re ceived Time Location / / Volume Laterality 10/14/2007 9:00 AM CDT Hansa Lewis APRN, CNP LAB_1 Performing Organization Address City/State/ZIP Code Phon e Number HP CONVERSION documented in this encounter Visit Diagnoses Not on filedocumented in this encounter Care Teams Care Program Director Relationship Specialty Start Date End Date Hansa Lewis APRN, CNP PCP - General 10/22/10 11/30/12 [address] [place] [address] documented as of this encounter
--- OUTSIDE RECORDS SUMMARY | 2022-04-16 08:13 | XMS_ITS | Encounter Summary ---
:1960 [facility] Address [address] [address] Care Team Providers Name Role Phone Lilialynnette Hansa NGUYỄN CNP Primary Care Provider [phone] Reason for Visit Reason Comments Other Encounter Details Date Type Department Care Team Description 07/24/2007 Telephone [facility], Message Other [address] [place] [address] Social History Tobacco Use Types Packs/Day Years Used Date Smoking Tobacco: Never Assessed Sex Assigned at Date Recorded Not on file documented as of this encounter [facility], Message - 07/24/2007 2:03 PM CST Phone Note filed by [employer] at 11/08/10 1140 Author: [employer] Service: (none) Author Type: (none) Filed: 11/08/10 1140 Note Time: 07/24/07 1403 Status: Signed Correction Officer Head: [employer] Patient's left message Bryce had two lab orders and lost them both, can these be redone and sent to the lab? Also Hansa wanted them to check his BP again, can he have this checked anywhere or did she want to see him? Please notify his , she didn't leave her name, at [phone]. Created on 24Jul2007 2:03pm by MEGHAN FARFAN On 24Jul2007 3:05pm AVTAR FABIAN wrote: Spoke with and he made an apt.for Med check and BP ckeck Acknowledged by AVTAR FABIAN on 3:05pm NET SOFTWARE DEVELOPER documented in this encounter Plan of Treatment Not on filedocumented as of this encounter Visit Diagnoses Not on filedocumented in this encounter Care Teams Fitness Services Manager Relationship Specialty Start Date End Date Hansa Lewis, SUPPLIES PACKER, GROUND WOOD SUPERVISOR PCP - General 10/22/10 11/30/12 [address] [address] [place] [id number] documented as of this encounter
--- OUTSIDE RECORDS SUMMARY | 2022-04-16 08:13 | XMS_ITS | Encounter Summary ---
:1960 [facility] Address [address] [address] Care Team Providers Name Role Phone Hansa Lewis YARED NGUYỄN Primary Care Provider [phone] Encounter Details Date Type Department Care Team Description 10/14/2007 PN Conversion Only [place] [address] [facility] [address] [place] [address] [place], [place] [address] (Wo rk) Social History Tobacco Use Types Packs/Day Years Used Date Smoking Tobacco: Never Assessed Sex Assigned at Date Recorded Not on file documented as of this encounter Plan of Treatment Not on filedocumented as of this encounter Procedures Procedure Name Priority Date/Time Associated Diagnosis Comme nts ALT (SGPT) Routine 10/14/2007 9:01 AM Results f or this CDT procedure are i n the results section. AST Routine 10/14/2007 9:01 AM Results f or this CDT procedure are i n the results section. BILIRUBIN, TOTAL Routine 10/14/2007 9:01 AM Resul ts for this CDT procedure are i n the results section. BILI - DIRECT Routine 10/14/2007 9:01 AM Results for this CDT procedure are i n the results section. ALKALINE Routine 10/14/2007 9:01 AM Results f or this PHOSPHATASE, TOTAL CDT procedure are in the results section. documented in this encounter Results Alkaline Phosphatase, Total (10/14/2007 9:01 AM CDT) athologist Signature Alk Phos 59 25 - 135 U/L HP CONVERSION Specimen (Source) Anatomical Collection Method Collection Time Re ceived Time Location / / Volume Laterality 10/14/2007 9:01 AM CDT Philip Nelson MD LAB_1 Performing Organization Address [facility] Phon e Number HP CONVERSION ALT (SGPT) (10/14/2007 9:01 AM CDT) [facility] gist Method Time Signature Alanine 24 4 - 55 HP CONVERSION Aminotransferase U/L Specimen (Source) Anatomical Collection Method Collection Time Re ceived Time Location / / Volume Laterality 10/14/2007 9:01 AM CDT Philip Nelson MD LAB_1 Performing Organization Address [facility] Phon e Number HP CONVERSION AST (10/14/2007 9:01 AM CDT) [facility] gist Method Time Signature Aspartate 23 0 - 45 HP CONVERSION Aminotransferase U/L Specimen (Source) Anatomical Collection Method Collection Time Re ceived Time Location / / Volume Laterality 10/14/2007 9:01 AM CDT Philip Nelson MD LAB_1 Performing Organization Address [facility] Phon e Number HP CONVERSION Bilirubin, Direct (10/14/2007 9:01 AM CDT) athologist Signature Bilirubin, 0.4 0.0 - 0.4 HP CONVERSION Direct mg/dL Specimen (Source) Anatomical Collection Method Collection Time Re ceived Time Location / / Volume Laterality 10/14/2007 9:01 AM CDT Philip Nelson MD LAB_1 Performing Organization Address City/[facility] Phon e Number HP CONVERSION (ABNORMAL) Bilirubin, Total (10/14/2007 9:01 AM CDT) athologist Signature Bilirubin 1.7 (H) 0.2 - 1.2 HP CONVERSION Total mg/dL Specimen (Source) Anatomical Collection Method Collection Time Re ceived Time Location / / Volume Laterality 10/14/2007 9:01 AM CDT Philip Nelson MD LAB_1 Performing Organization Address [facility] Phon e Number HP CONVERSION documented in this encounter Visit Diagnoses Not on filedocumented in this encounter Care Teams Doctor Of Nurse Anesthesia Relationship Specialty Start Date End Date Hansa Lewis APRN, BUSINESS ADVISOR PCP - General 10/22/10 11/30/12 [address] [address] [place] [address] documented as of this encounter
--- OUTSIDE RECORDS SUMMARY | 2022-04-16 08:13 | XMS_ITS | Encounter Summary ---
:1960 Author Organization [facility] Address [address], [place] [address] Care Team Providers Name Role Phone Hansa Lewis APRN, SENIOR JAVA DATA ARCHITECT Primary Care Provider [phone] Encounter Details Date Type Department Care Team Description 07/30/2007 PN Conversion Only [place] [facility] Hansa Lewis APRN, [address] [place] [address] [facility] [address] [place] [address] (Wo rk) Social History Tobacco Use Types Packs/Day Years Used Date Smoking Tobacco: Never Assessed Sex Assigned at Date Recorded Not on file documented as of this encounter Plan of Treatment Not on filedocumented as of this encounter Procedures Procedure Name Priority Date/Time Associated Comments Diagnosis MITOCHONDRIAL ANTIBODY Routine 07/30/2007 11:05 R esults for this AM DEPUTY REGISTER OF DEEDS procedure are i n the results section. ALPHA 1 ANTITRYPSIN Routine 07/30/2007 11:05 Resu lts for this PHENOTYPE AM DEPUTY REGISTER OF DEEDS procedure are i n the results section. HEPATITIS A IGM Routine 07/30/2007 11:05 Results for this ANTIBODY AM DEPUTY REGISTER OF DEEDS procedure are i n the results section. HEPATITIS B SURFACE Routine 07/30/2007 11:05 Resu lts for this ANTIBODY AM DEPUTY REGISTER OF DEEDS procedure are i n the results section. HEP B SURFACE ANTIGEN, Routine 07/30/2007 11:05 R esults for this NO REFLEX AM DEPUTY REGISTER OF DEEDS procedure are i n the results section. IRON (NO IBC OR SAT) Routine 07/30/2007 11:05 Res ults for this AM DEPUTY REGISTER OF DEEDS procedure are i n the results section. BILIRUBIN, TOTAL & Routine 07/30/2007 11:05 Resul ts for this DIRECT AM DEPUTY REGISTER OF DEEDS procedure are i n the results section. HEPATITIS C ANTIBODY, Routine 07/30/2007 11:05 Re sults for this WITH REFLEX AM DEPUTY REGISTER OF DEEDS procedure are i n the results section. FERRITIN Routine 07/30/2007 11:05 Results for this AM DEPUTY REGISTER OF DEEDS procedure are i n the results section. documented in this encounter Results (ABNORMAL) Bilirubin, Total & Direct (07/30/2007 11:05 AM DEPUTY REGISTER OF DEEDS) athologist [facility] Bilirubin 1.9 (H) 0.2 - 1.2 HP CONVERSION Total mg/dL Bilirubin, 0.6 (H) 0.0 - 0.4 HP CONVERSION Direct mg/dL Specimen (Source) Anatomical Collection Method Collection Time Re ceived Time Location / / Volume Laterality 07/30/2007 11:05 AM DEPUTY REGISTER OF DEEDS Hansa Lewis APRN, CNP LAB_1 Performing Organization Address City/[facility]/ZIP Code Phon e Number HP CONVERSION Ferritin (07/30/2007 11:05 AM DEPUTY REGISTER OF DEEDS) athologist [facility] Ferritin Serum 195 22 - 322 HP CONVERSION ng/mL Specimen (Source) Anatomical Collection Method Collection Time Re ceived Time Location / / Volume Laterality 07/30/2007 11:05 AM DEPUTY REGISTER OF DEEDS Hansa Lewis APRN, CNP LAB_1 Performing Organization Address City/[facility]/ZIP Code Phon e Number HP CONVERSION Hepatitis A Igm Antibody (07/30/2007 11:05 AM DEPUTY REGISTER OF DEEDS) athologist [facility] Hepatitis A IgM NEG NEG HP CONVERSION Antibody Comment: Performed at [facility] [address] [place] [address] Specimen (Source) Anatomical Collection Method Collection Time Re ceived Time Location / / Volume Laterality 07/30/2007 11:05 AM DEPUTY REGISTER OF DEEDS Hansa Lewis APRN, CNP LAB_1 Performing Organization Address City/[facility] Phon e Number HP CONVERSION Alpha 1 Antitrypsin Phenotype (07/30/2007 11:05 AM DEPUTY REGISTER OF DEEDS) athologist [facility] Alpha-1 141 100 - 200 HP CONVERSION Antitrypsin mg/dL Comment: Interpretive data: TEST INFORMATION: Fedez-4-Hfpsmqqklgl To convert to umol/L, multiply mg/dL by 0.185. Alpha 1 Antitrypsin Phenotype M1M1 MM HP CONVERSION Comment: All M subtypes (M1, M2, M3) have normal serum concentrations of nxlry-5-bxzifzta inhib itor and are not associated with clinical disease. Ca ution in interpretation is advised if the patient has been transfused within the previous 14 days. Performed at [address] [address] Specimen (Source) Anatomical Collection Method Collection Time Re ceived Time Location / / Volume Laterality 07/30/2007 11:05 AM DEPUTY REGISTER OF DEEDS Hansa Lewis APRN, CNP LAB_1 Performing Organization Address City/[facility] Code Phon e Number HP CONVERSION Iron (no IBC or Sat) (07/30/2007 11:05 AM DEPUTY REGISTER OF DEEDS) athologist Signature Iron, Serum 96 50 - 165 HP CONVERSION ug/dL Specimen (Source) Anatomical Collection Method Collection Time Re ceived Time Location / / Volume Laterality 07/30/2007 11:05 AM DEPUTY REGISTER OF DEEDS Hansa Joshua NGUYỄN CNP LAB_1 Performing Organization Address City/[facility]/ZIP Code Phon e Number HP CONVERSION Hepatitis B Surface Antibody (07/30/2007 11:05 AM DEPUTY REGISTER OF DEEDS) Analysis Performed At Patho logist Time Signature Hep B Surf Ab Non-reac Non Reac HP CONVERSION Specimen (Source) Anatomical Collection Method Collection Time Re ceived Time Location / / Volume Laterality 07/30/2007 11:05 AM DEPUTY REGISTER OF DEEDS Hansa Joshua NGUYỄN CNP LAB_1 Performing Organization Address City/[facility]/ZIP Code Phon e Number HP CONVERSION Hep B Surface Antigen, No Reflex (07/30/2007 11:05 AM DEPUTY REGISTER OF DEEDS) Analysis Performed At Patho logist Time Signature Hep B Surf Ag Negative Negative HP CONVERSION Specimen (Source) Anatomical Collection Method Collection Time Re ceived Time Location / / Volume Laterality 07/30/2007 11:05 AM DEPUTY REGISTER OF DEEDS Hansa Joshua NGUYỄN CNP LAB_1 Performing Organization Address City/[facility]/ZIP Code Phon e Number HP CONVERSION Hepatitis C Antibody, with Reflex (07/30/2007 11:05 AM DEPUTY REGISTER OF DEEDS) Analysis Performed At Patho logist Time Signature Hepatitis C Non-reac Non Reac HP CONVERSION Antibody Specimen (Source) Anatomical Collection Method Collection Time Re ceived Time Location / / Volume Laterality 07/30/2007 11:05 AM DEPUTY REGISTER OF DEEDS Hansa Lewis APRN, CNP LAB_1 Performing Organization Address [facility] Phon e Number HP CONVERSION Mitochondrial Antibody (07/30/2007 11:05 AM DEPUTY REGISTER OF DEEDS) Analysis Performed At Patho logist Time Signature Anti-Mitochond Neg<1:10 Neg<1:10 HP CONVERSION rial Ab Specimen (Source) Anatomical Collection Method Collection Time Re ceived Time Location / / Volume Laterality 07/30/2007 11:05 AM DEPUTY REGISTER OF DEEDS Hansa Lewis APRN, CNP LAB_1 Performing Organization Address [facility] Phon e Number HP CONVERSION documented in this encounter Visit Diagnoses Not on filedocumented in this encounter Care Teams Heavy Equipment Rental Associate Relationship Specialty Start Date End Date Hansa Lewis APRN, CNP PCP - General 10/22/10 11/30/12 [address] [place] [address] documented as of this encounter
--- OUTSIDE RECORDS SUMMARY | 2022-04-16 08:13 | XMS_ITS | Encounter Summary ---
:1960 [facility] Address [address], [place] [address] Care Team Providers Name Role Phone Hansa Lewis APRN, CNP Primary Care Provider [phone] Encounter Details Date Type Department Care Team Description 07/06/2008 Office Visit [place] [facility] Hansa Lewis APRN, [facility] [address] [facility] [address] [place] [address] [place] [address] [phone] (Wo rk) Social History Tobacco Use Types Packs/Day Years Used Date Smoking Tobacco: Never Assessed Sex Assigned at Date Recorded Not on file documented as of this encounter Last Filed Vital Signs Vital Sign Reading Time Taken Comments Blood Pressure 130/60 07/06/2008 3:58 PM CABLE FERRY OPERATOR Pulse 60 07/06/2008 3:58 PM CABLE FERRY OPERATOR Temperature - - Respiratory Rate - - Oxygen Saturation - - Inhaled Oxygen Concentration - - Weight 80.3 kg (176 lb 15.8 oz) 07/06/2008 3:58 PM CABLE FERRY OPERATOR C: 80.3kg Height - - Body Mass Index 23.67 06/06/2007 8:21 AM CABLE FERRY OPERATOR documented in this encounter Progress Notes Hansa Lewis APRN, CNP - 07/06/2008 12:01 AM CST Progress Notes signed by CRISTINA Steele at 08/04/08 8782 Author: CRISTINA Steele Service: (none) Author Type: (none) Filed: 11/11/10 0926 Note Time: 07/06/08 0001 Status: Signed Mold Sheet Cleaner: CRISTINA Steele (Nurse Practitioner) NAME: JOSH MOSLEY MR#: [id number] ACCT: [id number] VISIT: [id number] DICTATING CLINICIAN: CRISTINA Steele CONFIRM #: [id number] LOC: 506 CLINIC PROGRESS NOTE DATE OF VISIT: 07/06/2008 SUBJECTIVE: : 1960. Angely is in clinic today to review his recent lab tests with me. He was noted to previously have slightly elevated creatinine of 1.5 on Diovan. We subsequently held the medication, did a 24-hour creatinine clearance and it was 69. Repeated the creatinine on 07/03 and it is now 1.8. Angely says he feels marvelous. He has no muscle aches or pains. He has not been doing any particularly heavy workout. He had been advised that I wanted him to see a facility maintenance worker and he is scheduled for 07/[address] Hernandez. PAST MEDICAL HISTORY: Hypertension, hyperlipidemia, fatty liver, gastroesophageal reflux disease. MEDICATIONS: Tenormin 100 mg at bedtime, Prilosec 20 mg daily. ADR/ALLERGIES: CODEINE. SOCIAL HISTORY: with children. OBJECTIVE: VS: BP: 130/60. P: 60. Wt: 177. Angely appears very well today. Alert and oriented x3. Upbeat. SKIN: Warm, dry, and nondiaphoretic. LUNGS: Clear. CARDIOVASCULAR: S1, S2. Rate and rhythm regular without murmur. No dependent edema noted. ASSESSMENT: Renal insufficiency. PLAN: He will have a potassium repeated today. His last potassium was 5.3 on 05/19. Pat is in agreement with the above plan. LAE:[id number] C: 07/07/08 11:53 CONFIRM #: [id number] E FERRY OPERATOR documented in this encounter Plan of Treatment Not on filedocumented as of this encounter Visit Diagnoses Not on filedocumented in this encounter Care Teams Pick And Shovel Worker Relationship Specialty Start Date End Date Hansa Lewis, INTERIOR DESIGNER, EDITOR FARM JOURNAL PCP - General 10/22/10 11/30/12 [address] [place] [id number] documented as of this encounter
--- OUTSIDE RECORDS SUMMARY | 2022-04-16 08:13 | XMS_ITS | Encounter Summary ---
:1960 [facility] Address [address] [place] [address] Care Team Providers Name Role Phone Hansa Lewis YARED NGUYỄN Primary Care Provider [phone] Reason for Visit Reason Comments Other Encounter Details Date Type Department Care Team Description 10/17/2007 Telephone [facility] Baljit Lagunas G[facility] [address] [place] [address]. [place] [address] Social History Tobacco Use Types Packs/Day Years Used Date Smoking Tobacco: Never Assessed Sex Assigned at Date Recorded Not on file documented as of this encounter Progress Notes Alexi Nelson MD - 10/17/2007 5:08 PM CDT Phone Note filed by Alexi Nelson MD at 11/08/101729 Author: Alexi Nelson MD Service: (none) Author Type: Physician Filed: 11/08/101729 Note Time: 10/17/071707 Status: Signed Founder And Ceo: Alexi Nelson MD (Physician) Lab letter sent. I do not see the GI consult in appts. He needs this consult--I have ordered several tests and never met the patient. Is he cancelling the appts?? Created on 17Oct2007 5:08pm by ALEXI NELSON On 21Oct2007 9:41am BALJIT LAGUNAS wrote: Previous appt. cancelled per phone note. Spoke with and appt rescheduled for 11/24/07. Acknowledged by BALJIT LAGUNAS on 9:41am On 21Oct2007 10:00am ALEXI NELSON wrote: Just prior to appt recheck AST,ALT,ALK Phos, TB, DB, CBC. Thanks. Acknowledged by ALEXI NELSON on 10:00am On 21Oct2007 10:03am BALJIT LAGUNAS wrote: Pt's notified . Lab order mailed to pt. Acknowledged by BALJIT LAGUNAS on 10:03am AL LATHE MACHINIST documented in this encounter Plan of Treatment Not on filedocumented as of this encounter Visit Diagnoses Not on filedocumented in this encounter Care Teams Americanization Teacher Relationship Specialty Start Date End Date Hansa Lewis APRN, MERINGUER PCP - General 10/22/10 11/30/12 [address] [address] [place] [id number] documented as of this encounter
--- OUTSIDE RECORDS SUMMARY | 2022-04-16 08:13 | XMS_ITS | Encounter Summary ---
:1960 Author Organization [facility] Address [address] [place] [address] Care Team Providers Name Role Phone Hansa Lewis YARED NGUYỄN Primary Care Provider [phone] Reason for Visit Reason Comments Other Encounter Details Date Type Department Care Team Description 08/18/2007 Telephone [facility] [address] Jose Bell RN Other Gastroenterology [address] [facility] [place] [address] Social History Tobacco Use Types Packs/Day Years Used Date Smoking Tobacco: Never Assessed Sex Assigned at Date Recorded Not on file documented as of this encounter Progress Notes Alexi Sheikh MD - 08/18/2007 10:42 AM CST Phone Note filed by Alexi Sheikh MD at 11/08/10 4474 Author: Alexi Sheikh MD Service: (none) Author Type: Physician Filed: 11/08/10 1809 Note Time: 08/18/07 1042 Status: Signed Autographer: Alexi Sheikh MD (Physician) No show for GI consultation today. See prior phone notes. Please contact pt to reschedule consultation appt please. Thanks. Created on 18Aug2007 10:42am by ALEXI SHEIKH On 18Aug2007 10:50am ALEXI SHEIKH wrote: Please obtain MRCP prior to rescheduled appt, indication abnl LFT's. Thanks. On 18Aug2007 10:52am JOSE BELL wrote: spoke with Dr Sheikh. Would like MRCP also. OK to use 30 min spot. LM TCB at home number and work number. Acknowledged by JOSE BELL on 10:52am On 19Aug2007 9:51am JOSE BELL wrote: pt's called back. MRCP and f/u appt made. RCOVER COP documented in this encounter Plan of Treatment Not on filedocumented as of this encounter Visit Diagnoses Not on filedocumented in this encounter Care Teams Rn Midwife Relationship Specialty Start Date End Date Hansa Lewis APRN, BASKET MENDER PCP - General 10/22/10 11/30/12 [address] [address] [place] [address] documented as of this encounter
--- OUTSIDE RECORDS SUMMARY | 2022-04-16 08:13 | XMS_ITS | Encounter Summary ---
:1960 [facility] Address [address], [place] [address] Care Team Providers Name Role Phone Hansa Lewis APRN, CNP Primary Care Provider [phone] Encounter Details Date Type Department Care Team Description 05/19/2008 Office Visit [place] Internal Hansa Lewis APRN, [facility] [address] [facility] [address] [place] [address] [place] [address] [phone] (Wo rk) Social History Tobacco Use Types Packs/Day Years Used Date Smoking Tobacco: Never Assessed Sex Assigned at Date Recorded Not on file documented as of this encounter Last Filed Vital Signs Vital Sign Reading Time Taken Comments Blood Pressure 128/70 05/19/2008 8:11 AM CDT C: Omron Pulse 58 05/19/2008 8:11 AM CDT Temperature - - Respiratory Rate - - Oxygen Saturation - - Inhaled Oxygen Concentration - - Weight 78 kg (171 lb 15.7 oz) 05/19/2008 8:11 AM CDT C: 78.0kg Height - - Body Mass Index 23 06/06/2007 8:21 AM TEST DESIGN ENGINEER documented in this encounter Progress Notes Hansa Lewis APRN, YARED - 05/19/2008 12:01 AM CDT Progress Notes signed by CRISTINA Steele at 06/15/08 1114 Author: CRISTINA Steele Service: (none) Author Type: (none) Filed: 11/11/10 0810 Note Time: 05/19/08 0001 Status: Signed Hat Maker: CRISTINA Steele (Nurse Practitioner) NAME: JOSH MOSLEY MR#: [id number] ACCT: [id number] VISIT: [id number] DICTATING CLINICIAN: CRISTINA Steele CONFIRM #: [id number] LOC: 506 CLINIC PROGRESS NOTE DATE OF VISIT: 05/19/2008 SUBJECTIVE: : 1960. 48-year-old gentleman in clinic today to follow up on a number of concerns. 1. Previously noted in 07/2007 to have impaired fasting glucose. He spoke with the stacker straightener and has had a 35-pound weight loss due to dietary changes and exercise over the course of the last 10 months. He said his weight has been stable for at least the last 6 months and he feels well. He has no excessive hunger, thirst, urination, or fatigue. 2. Elevated liver function tests with right upper quadrant ultrasound showing fatty infiltrates. Was referred to GI in July of last year. Failed his first appointment and was scheduled for an appointment with Dr. Nelson. Letter written by Dr. Nelson indicated that result of this CAT scan would be reviewed at his office visit and that fatty infiltration of the liver was confirmed on the CAT scan. He was to have an MRCP examination prior to his consultation for further evaluation of abnormal liver tests, but there was a miscommunication effort between Dr. Nelson's office, Josh's and my office, and his understanding was that his liver function tests had normalized and he did not need to follow up with the chief chemist. At the time that this evaluation was done, he was noted to have scleral icterus. He had an elevated LDH of 190, total bili of 1.9, direct bili of 0.6. In July the bilirubin came down to 1.0 and direct bili down to 0.3. Recheck in September showed an elevated bili again of 1.7 with a normal direct bilirubin, and he has not had it monitored since. 3. Hypertension, currently on Diovan 80 mg and Tenormin 50 mg daily. He said he occasionally monitors his blood pressure and he says it is always spot on. He had previously been on Prinivil but was noted to have elevated creatinine of 1.5 and had normal BUN, creatinine, lytes on the Diovan. 4. Gastroesophageal reflux disease. He uses Prilosec 20 mg daily and says that this effectively controls his gastroesophageal reflux disease, but he does need to take it or will have his symptoms recur. 5. He has had history of elevated LDL of 145, and he is again hoping that his diet and exercise changes will have brought that into normal range. He has not had medication for hypercholesterolemia at this point. OTHER PAST MEDICAL HISTORY: Negative. FAMILY HISTORY: Mother has hypertension. Premature cardiovascular disease in a maternal uncle who had an NC at 42, and his mother who at age 62 of NC. No family history of diabetes or cancer or hypercholesterolemia. REVIEW OF SYSTEMS: Neuro: Denies any headaches, lightheadedness or dizziness. No paresthesias. HEENT negative. Cardiovascular: No chest pain or palpitations. Feels well on his antihypertensives. Pulmonary: No cough, wheeze, shortness of breath. Gastrointestinal: Controlled GERD on Prilosec. No change in bowel habits, diarrhea or constipation. No change in color, caliber or consistency of stools. Denies abdominal pain. No nausea or vomiting. Genitourinary: No urinary urgency, frequency or burning. No difficulty starting or maintaining his stream. Musculoskeletal: No myalgias or arthralgias. Skin: No unusual rashes, lesions or discolorations. SOCIAL HISTORY: Nonsmoker. OBJECTIVE: VS: BP: 128/70. P: 58. Wt: 172. Josh looks well. His color is good. Sclerae nonicteric. HEENT: Eyes: Conjunctivae clear and PERRLA. Ears: TMs pearly dominguez. Oropharynx within normal limits. NECK: Supple without lymphadenopathy. LUNGS: Clear. No wheezes, rales or rhonchi. CARDIOVASCULAR: S1, S2. Rate and rhythm regular without murmur. ABDOMEN: Active bowel sounds, soft, entirely nontender. No hepatosplenomegaly. No masses appreciated. EXTREMITIES: No cyanosis, clubbing or edema. Pedal pulses full and symmetric. ASSESSMENT: 1. Impaired fasting glucose. We will get a fasting glucose and hemoglobin A1c. 2. Abnormal LFTs. Will repeat alk phos, ALT, AST and total bili. 3. Hypertension. He is given refills of the Diovan and Tenormin, and we will get a BUN, creatinine and electrolytes. 4. Gastroesophageal reflux disease. He is given a refill of Prilosec. 5. Hyperlipidemia. Will repeat cholesterol fractionation and I will send results of the blood tests to his home. I will call him with any additional recommendations for medication adjustment or consultation. PLAN: See assessment. LAE:[id number] C: 05/19/08 14:14 CONFIRM #: [id number] DESIGN ENGINEER documented in this encounter Plan of Treatment Not on filedocumented as of this encounter Visit Diagnoses Not on filedocumented in this encounter Care Teams Receiving Operator Relationship Specialty Start Date End Date Hansa Lewis, DELMA, CLERICAL INVESTIGATOR PCP - General 10/22/10 11/30/12 [address] [place] [id number] documented as of this encounter
--- OUTSIDE RECORDS SUMMARY | 2022-04-16 08:13 | XMS_ITS | Encounter Summary ---
:1960 Author Organization [facility] Address [address], [place] [address] Care Team Providers Name Role Phone Unassigned, Provider Primary Care Provider Unavailable Encounter Details Date Type Department Care Team Description 08/28/2007 Hospital Encounter PRESYBETERIAN CONVERSION Shanae Nelson MD [address] [place] [address] (Wo rk) Social History Tobacco Use Types Packs/Day Years Used Date Smoking Tobacco: Never Assessed Sex Assigned at Date Recorded Not on file documented as of this encounter Medications at Time of Discharge Medication Sig Dispensed Refills Start Date End Date ATENolol (AKA TENORMIN) Take 1 tablet by 90 3 200607/05/2008 50 MG tablet mouth daily (every 24 hours). LW Addl Instr:Indicated for: High Blood Pressure ATENolol (AKA TENORMIN) Take 1 tablet by 90 3 200507/05/2008 50 MG tablet mouth daily (every 24 hours). LW Addl Instr:Indicated for: High Blood Pressure ATENolol (AKA TENORMIN) Take 1 tablet by 90 3 200407/05/2008 50 MG tablet mouth daily (every 24 hours). LW Addl Instr:Indicated for: High Blood Pressure ATENolol (AKA TENORMIN) Take 1 tablet by 90 3 200307/05/2008 50 MG tablet mouth daily (every 24 hours). LW Addl Instr:Indicated for: High Blood Pressure ATENolol (AKA TENORMIN) Take 1 tablet by 90 3 200307/05/2008 50 MG tablet mouth daily (every 24 hours). LW Addl Instr:Indicated for: High Blood Pressure ATENolol (AKA TENORMIN) Take 1 tablet by 90 3 200307/05/2008 50 MG tablet mouth daily (every 24 hours). [...] Acid Reflux UNKNOWN MEDICATION Indications: PN: 0 07/28/2007 07/06/2008 UNKNOWN MEDICATION Indications: PN: 0 06/13/2007 07/06/2008 UNKNOWN MEDICATION Indications: PN: 0 06/06/2007 07/06/2008 UNKNOWN MEDICATION Indications: PN: 0 06/18/2006 07/06/2008 UNKNOWN MEDICATION Indications: PN: 0 06/05/2005 07/06/2008 UNKNOWN MEDICATION Indications: PN: 0 03/17/2005 07/06/2008 UNKNOWN MEDICATION Indications: PN: 0 03/10/2005 07/06/2008 UNKNOWN MEDICATION Indications: PN: 0 08/28/2004 07/06/2008 UNKNOWN MEDICATION Indications: PN: 0 06/07/2004 07/06/2008 UNKNOWN MEDICATION Indications: PN: 0 06/07/2004 07/06/2008 valsartan (AKA DIOVAN) Take 1 tablet by 30 11 007 08/09/2008 80 MG tablet mouth daily (every 24 hours). LW Addl Instr:Indicated for: High Blood Pressure documented as of this encounter Plan of Treatment Not on filedocumented as of this encounter Procedures Procedure Name Priority Date/Time Associated Diagnosis Comme nts HMR ABD WO IV Routine 08/28/2007 8:10 AM Results for this CONTRAST CERTIFIED MASTER SAFECRACKER procedure are i n the results section. documented in this encounter Results HMR Abd WO IV Contrast (08/28/2007 8:10 AM CERTIFIED MASTER SAFECRACKER) Anatomical Region Laterality Modality Abdomen Other Specimen (Source) Anatomical Location Collection Method / Collectio n Time Received Time / Laterality Volume Impressions 08/28/2007 8:10 AM CERTIFIED MASTER SAFECRACKER : ??Incidental subcentimeter splenic cyst. ??Otherwise unremarkable MRCP. [id number] Dictating CHRIS YAP Physician Narrative 08/28/2007 8:10 AM CERTIFIED MASTER SAFECRACKER HISTORY: ??MRCP, abnormal liver function tests. TECHNIQUE: ??Noncontrast MRI images acco rding to the MRCP protocol. FINDINGS: ??There is no biliary dilatati on. ??The common bile duct is 3-4 mm in diameter, and tapers distally, without a filling defect detected. ??No filling defects are ident ified within the gallbladder. The pancreatic duct is not dilated. ??Wi th the exception of a subcentimeter cyst on the spleen, the vi sualized abdominal structures are unremarkable. Procedure Note Chris Toney MD - 09/22/2016For matting of this note might be different from the original. HISTORY: MRCP, abnormal liver function t ests. TECHNIQUE: Noncontrast MRI images accord ing to the MRCP protocol. FINDINGS: There is no biliary dilatation . The common bile duct is 3-4 mm in diameter, and tapers distally, without a filling defect detected. No filling defects are identif ied within the gallbladder. The pancreatic duct is not dilated. With the exception of a subcentimeter cyst on the spleen, the vi sualized abdominal structures are unremarkable. IMPRESSION : Incidental subcentimeter splenic cyst. Otherwise unremarkable MRCP. [id number] Dictating CHRIS YAP Physician Philip Nelson MD RAD MRI documented in this encounter Visit Diagnoses Not on filedocumented in this encounter Care Teams Blasting Cap Assembler Relationship Specialty Start Date End Date Unassigned, Provider PCP - General 06/29/00 10/21/10 [address] [place] [address] documented as of this encounter
--- OUTSIDE RECORDS SUMMARY | 2022-04-16 08:13 | XMS_ITS | Encounter Summary ---
:1960 Author Organization [facility] Address [address], [place] [address] Care Team Providers Name Role Phone Hansa Lewis APRN, CNP Primary Care Provider [phone] Reason for Visit Reason Comments Other Encounter Details Date Type Department Care Team Description 06/02/2008 Telephone [facility] Adelaida Lewis APRN, CNP Other Medicine [address] [facility] [address] [place] [address] [place] [address] [phone] Social History Tobacco Use Types Packs/Day Years Used Date Smoking Tobacco: Never Assessed Sex Assigned at Date Recorded Not on file documented as of this encounter Progress Notes Center, Message - 06/02/2008 3:45 PM CST Phone Note filed by [facility] at 11/09/10 1020 Author: [facility] Service: (none) Author Type: (none) Filed: 11/09/10 1020 Note Time: 06/02/08 1545 Status: Signed Knockout Man: [facility] X-Ray US Renal and Bladder results are available in [employer]. Created on 02Jun2008 3:45pm by STEPHANIE VIVAR On 02Jun2008 4:14pm HANSA LEWIS wrote: will send report to PM Acknowledged by HANSA LEWIS on 4:14pm K SURFACING MACHINE OPERATOR documented in this encounter Plan of Treatment Not on filedocumented as of this encounter Visit Diagnoses Not on filedocumented in this encounter Care Teams Sulfonation Equipment Operator Relationship Specialty Start Date End Date Hansa Lewis APRN, CREW CAR DRIVER PCP - General 10/22/10 11/30/12 [address] [place] [address] documented as of this encounter
--- OUTSIDE RECORDS SUMMARY | 2022-04-16 08:13 | XMS_ITS | Encounter Summary ---
:1960 Author [facility] Address [address] [place] [address] Care Team Providers Name Role Phone Hansa Lewis APRN, [facility] Primary Care Provider [phone] Encounter Details Date Type Department Care Team Description 05/19/2008 PN Conversion Only [place] Hansa Lewis APRN, [address] [place] [address] [facility] [address] [place] [address] (Wo rk) Social History Tobacco Use Types Packs/Day Years Used Date Smoking Tobacco: Never Assessed Sex Assigned at Date Recorded Not on file documented as of this encounter Plan of Treatment Not on filedocumented as of this encounter Procedures Procedure Name Priority Date/Time Associated Comments Diagnosis ELECTROLYTES (NA, K, Routine 05/19/2008 9:09 AM R esults for this CL, BICARB) CDT procedure are i n the results section. GLUCOSE Routine 05/19/2008 9:09 AM Results f or this CDT procedure are i n the results section. THYROID STIMULATING Routine 05/19/2008 9:09 AM Re sults for this HORMONE CDT procedure are i n the results section. LIPID PANEL AND Routine 05/19/2008 9:09 AM Result s for this DIRECT LDL(IF NEEDED) CDT proced ure are in the results section. CREATININE / GFR Routine 05/19/2008 9:09 AM Resul ts for this CDT procedure are i n the results section. HGB A1C Routine 05/19/2008 9:09 AM Results f or this CDT procedure are i n the results section. ALT (SGPT) Routine 05/19/2008 9:09 AM Results f or this CDT procedure are i n the results section. AST Routine 05/19/2008 9:09 AM Results f or this CDT procedure are i n the results section. BUN Routine 05/19/2008 9:09 AM Results f or this CDT procedure are i n the results section. BILIRUBIN, TOTAL Routine 05/19/2008 9:09 AM Resul ts for this CDT procedure are i n the results section. ALKALINE PHOSPHATASE, Routine 05/19/2008 9:09 AM Results for this TOTAL CDT procedure are i n the results section. documented in this encounter Results Alkaline Phosphatase, Total (05/19/2008 9:09 AM CDT) P athologist Signature Alk Phos 66 25 - 135 U/L HP CONVERSION Specimen (Source) Anatomical Collection Method Collection Time Re ceived Time Location / / Volume Laterality 05/19/2008 9:09 AM CDT Hansa Rodrigueslynnette NGUYỄN CNP LAB_1 Performing Organization Address City/[facility]/ZIP Code Phon e Number HP CONVERSION AST (05/19/2008 9:09 AM CDT) Patholo gist Method Time Signature Aspartate 20 0 - 45 HP CONVERSION Aminotransferase U/L Specimen (Source) Anatomical Collection Method Collection Time Re ceived Time Location / / Volume Laterality 05/19/2008 9:09 AM CDT Hansa Eatlynnette NGUYỄN CNP LAB_1 Performing Organization Address City/[facility]/ZIP Code Phon e Number HP CONVERSION ALT (SGPT) (05/19/2008 9:09 AM CDT) [facility] Method Time Signature Alanine 21 4 - 55 HP CONVERSION Aminotransferase U/L Specimen (Source) Anatomical Collection Method Collection Time Re ceived Time Location / / Volume Laterality 05/19/2008 9:09 AM CDT Hansa Lewis YARED NGUYỄN LAB_1 Performing Organization Address [facility]/ZIP Code Phon e Number HP CONVERSION (ABNORMAL) Bilirubin, Total (05/19/2008 9:09 AM CDT) P athologist Signature Bilirubin 1.4 (H) 0.2 - 1.2 HP CONVERSION Total mg/dL Specimen (Source) Anatomical Collection Method Collection Time Re ceived Time Location / / Volume Laterality 05/19/2008 9:09 AM CDT Hansa Lewis APRN, CNP LAB_1 Performing Organization Address [facility] Code Phon e Number HP CONVERSION BUN (05/19/2008 9:09 AM CDT) P athologist Signature Blood Urea 24 5 - 26 HP CONVERSION Nitrogen mg/dL Specimen (Source) Anatomical Collection Method Collection Time Re ceived Time Location / / Volume Laterality 05/19/2008 9:09 AM CDT Hansa Lewis APRN, CNP LAB_1 Performing Organization Address [facility] Phon e Number HP CONVERSION (ABNORMAL) Creatinine / GFR (05/19/2008 9:09 AM CDT) Analysis Performed At Patho logist Time Signature Creatinine 1.5 (H) 0.4 - 1.3 HP CONVERSION Serum mg/dL Est GFR >60 >60 HP CONVERSION Am Comment: -Guamanian and Ech-Gwqscmp-Wfbvpkp n reference range units: mL/min/1.73m2 Normal>60, moderate decrease 30 - 59, se alexia decrease 15 - 29, renal failure <15 mL/min/1.73 m2 Est GFR Non-Afr Am 50 (L) >60 HP CONVERSI ON Specimen (Source) Anatomical Collection Method Collection Time Re ceived Time Location / / Volume Laterality 05/19/2008 9:09 AM CDT Hansa Lewis APRN, CNP LAB_1 Performing Organization Address [facility] Phon e Number HP CONVERSION (ABNORMAL) Glucose (05/19/2008 9:09 AM CDT) P athologist Signature Length Of Fast 12.0 Hours HP CONVERSION Lab Glucose 122 (H) 60 - 100 HP CONVERSION mg/dL Specimen (Source) Anatomical Collection Method Collection Time Re ceived Time Location / / Volume Laterality 05/19/2008 9:09 AM CDT Hansa Lewis APRN, CNP LAB_1 Performing Organization Address [facility] Code Phon e Number HP CONVERSION (ABNORMAL) Electrolytes (NA, K, CL, Bicarb) (05/19/2008 9:09 AM CDT) P athologist Signature Sodium 141 137 - 147 HP CONVERSION mEq/L Potassium 5.3 (H) 3.5 - 5.2 HP CONVERSION mEq/L Chloride 105 98 - 110 HP CONVERSION mEq/L Bicarbonate 30 23 - 33 HP CONVERSION mmol/L Specimen (Source) Anatomical Collection Method Collection Time Re ceived Time Location / / Volume Laterality 05/19/2008 9:09 AM CDT Hansa Lewis YARED NGUYỄN LAB_1 Performing Organization Address [facility] Phon e Number HP CONVERSION (ABNORMAL) Lipid Panel and Direct LDL(If Needed) (05/19/2008 9:09 AM CDT) Patholo gist Method Time Signature Length Of Fast 12.0 Hours HP CONVERSION Cholesterol/HDL 5.7 No normal HP CONVERSION Ratio Screen range Cholesterol 232 (H) <200 mg/dL HP CONVERSION HDL Cholesterol 41 >40 mg/dL HP CONVERSION Triglycerides 231 (H) 0 - 149 HP CONVERSION mg/dL LDL Calculated 145 (H) 0 - 130 HP CONVERSION mg/dL Comment: Specimen (Source) Anatomical Collection Method Collection Time Re ceived Time Location / / Volume Laterality 05/19/2008 9:09 AM CDT Hansa Joshua NGUYỄN CNP LAB_1 Performing Organization Address [facility] Phon e Number HP CONVERSION Hgb A1c (05/19/2008 9:09 AM CDT) athologist Signature HGB A1C 5.9 <6.0 % HP CONVERSION Specimen (Source) Anatomical Collection Method Collection Time Re ceived Time Location / / Volume Laterality 05/19/2008 9:09 AM CDT Hansa Lewis YARED NGUYỄN LAB_1 Performing Organization Address [facility] Phon e Number HP CONVERSION Thyroid Stimulating Hormone (05/19/2008 9:09 AM CDT) athologist Signature Thyroid 2.60 0.20 - HP CONVERSION Stimulating 4.50 Hormone uIU/mL Specimen (Source) Anatomical Collection Method Collection Time Re ceived Time Location / / Volume Laterality 05/19/2008 9:09 AM CDT Hansa Lewis YARED NGUYỄN LAB_1 Performing Organization Address City/State/ZIP Code Phon e Number HP CONVERSION documented in this encounter Visit Diagnoses Not on filedocumented in this encounter Care Teams Laborer Plumbing Relationship Specialty Start Date End Date Hansa Lewis APRN, ZIPPER MEASURER PCP - General 10/22/10 11/30/12 [address] [place] [address] documented as of this encounter
--- OUTSIDE RECORDS SUMMARY | 2022-04-16 08:13 | XMS_ITS | Encounter Summary ---
:1960 Author Organization [facility] Address [address] [place] [address] Care Team Providers Name Role Phone LilialynnetteHansa APRN, CNP Primary Care Provider [phone] Encounter Details Date Type Department Care Team Description 08/07/2007 PN Conversion Only [place] [address] [place] [address] Social History Tobacco Use Types Packs/Day Years Used Date Smoking Tobacco: Never Assessed Sex Assigned at Date Recorded Not on file documented as of this encounter Plan of Treatment Not on filedocumented as of this encounter Procedures Procedure Name Priority Date/Time Associated Diagnosis Comme nts CT ABD W/WO IV CONT Routine 08/07/2007 8:27 AM Re sults for this POLISHER DIAL procedure are i n the results section. documented in this encounter Results CT Abd W/WO IV Cont (08/07/2007 8:27 AM POLISHER DIAL) Anatomical Region Laterality Modality Abdomen Other Specimen (Source) Anatomical Location Collection Method / Collectio n Time Received Time / Laterality Volume Narrative 08/07/2007 8:27 AM POLISHER DIAL The examination was performed without contrast and then with contrast with pancreas protocol. ??The lung bases show a calcified granuloma measuring 7 mm at the left base. ??Other cisneros unremarkable. ??Diffuse fatty infiltration of the liver. ??Splee n shows a calcified granuloma. No suspicious liver or splenic abnormali ties. ??Pancreas normal in appearance. ??No biliary ductal dilatati on seen. ??Gallbladder grossly unremarkable. ??Adrenal glands negative. ??Kidneys show no masses nor obstruction. ??Appendix visualizes. ??Re mainder of the upper abdomen and retroperitoneum unremarkable. ??No r enal calculi. ??There actually are innumerable splenic calcified granul omata. CONCLUSION: ??Pancreas normal. ??Splenic granulomata and left lung granuloma. ??Fatty infiltration of the l iver. ??Otherwise negative abdomen CT. [id number] Dictating LARRY CHERY MD Procedure Note Larry Alexis - 09/22/2016 The examination was performed without co ntrast and then with contrast with pancreas protocol. The lung bases s how a calcified granuloma measuring 7 mm at the left base. Otherwi se unremarkable. Diffuse fatty infiltration of the liver. Spleen shows a calcified granuloma. No suspicious liver or splenic abnormali ties. Pancreas normal in appearance. No biliary ductal dilatation seen. Gallbladder grossly unremarkable. Adrenal glands negative. K idneys show no masses nor obstruction. Appendix visualizes. Remain raji of the upper abdomen and retroperitoneum unremarkable. No fransico al calculi. There actually are innumerable splenic calcified granul omata. CONCLUSION: Pancreas normal. Splenic gra nulomata and left lung granuloma. Fatty infiltration of the omar er. Otherwise negative abdomen CT. [id number]/rr Dictating LARRY CHERY MD Philip Nelson MD RAD CT documented in this encounter Visit Diagnoses Not on filedocumented in this encounter Care Teams Produce Team Member Relationship Specialty Start Date End Date Hansa Lewis APRN, FINANCIAL COUNSELOR PCP - General 10/22/10 11/30/12 [address] [place] [id number] documented as of this encounter
--- OUTSIDE RECORDS SUMMARY | 2022-04-16 08:13 | XMS_ITS | Encounter Summary ---
:1960 Author Organization [facility] Address [address] [place] [address] Care Team Providers Name Role Phone Adelaida Lewiserica NGUYỄN, YARED Primary Care Provider [phone] Encounter Details Date Type Department Care Team Description 07/26/2008 PN Conversion Only [place] [facility] Terrence Hernandez MD [address] [place] [address] [address] [place] [address] (Wo rk) Social History Tobacco Use Types Packs/Day Years Used Date Smoking Tobacco: Never Assessed Sex Assigned at Date Recorded Not on file documented as of this encounter Plan of Treatment Not on filedocumented as of this encounter Procedures Procedure Name Priority Date/Time Associated Comments Diagnosis ELP, CASCADE, UR Routine 07/26/2008 3:27 PM Resul ts for this RANDOM NEGATIVE TURNER procedure are i n the results section. TOTAL PROTEIN,UR Routine 07/26/2008 3:27 PM Resul ts for this RANDOM NEGATIVE TURNER procedure are i n the results section. ELECTROLYTES (NA, K, Routine 07/26/2008 1:39 PM R esults for this CL, BICARB) NEGATIVE TURNER procedure are i n the results section. NEUTROPHIL CYTOPLASM Routine 07/26/2008 1:39 PM R esults for this AB W/REFLEX NEGATIVE TURNER procedure are i n the results section. VITAMIN D 25 OH Routine 07/26/2008 1:39 PM Result s for this NEGATIVE TURNER procedure are i n the results section. TOTAL PROTEIN+ALB Routine 07/26/2008 1:39 PM Resu lts for this NEGATIVE TURNER procedure are i n the results section. GLOMERULAR BASEMENT Routine 07/26/2008 1:39 PM Re sults for this MEMBR AB PANEL NEGATIVE TURNER procedure are in the results section. INTACT PTH Routine 07/26/2008 1:39 PM Results f or this NEGATIVE TURNER procedure are i n the results section. CREATININE / GFR Routine 07/26/2008 1:39 PM Resul ts for this NEGATIVE TURNER procedure are i n the results section. ELP, CASCADE, SERUM Routine 07/26/2008 1:39 PM Re sults for this NEGATIVE TURNER procedure are i n the results section. COMPLETE BLOOD Routine 07/26/2008 1:39 PM Results for this COUNT-NO DIFF NEGATIVE TURNER procedure are in the results section. C4 COMPLEMENT Routine 07/26/2008 1:39 PM Results for this NEGATIVE TURNER procedure are i n the results section. C3 COMPLEMENT Routine 07/26/2008 1:39 PM Results for this NEGATIVE TURNER procedure are i n the results section. JHOAN SCREEN Routine 07/26/2008 1:39 PM Results f or this NEGATIVE TURNER procedure are i n the results section. PHOSPHORUS Routine 07/26/2008 1:39 PM Results f or this NEGATIVE TURNER procedure are i n the results section. CALCIUM Routine 07/26/2008 1:39 PM Results f or this NEGATIVE TURNER procedure are i n the results section. BUN Routine 07/26/2008 1:39 PM Results f or this NEGATIVE TURNER procedure are i n the results section. INR/PROTIME Routine 07/26/2008 1:39 PM Results f or this NEGATIVE TURNER procedure are i n the results section. documented in this encounter Results ELP, Becker, Urine Random (07/26/2008 3:27 PM NEGATIVE TURNER) Analysis Performed At Patho logist Time Signature U ELP Interp See Note No normal HP CONVERSION range Comment: No monoclonal protein identified. (CPS) Specimen (Source) Anatomical Collection Method Collection Time Re ceived Time Location / / Volume Laterality 07/26/2008 3:27 PM NEGATIVE TURNER Terrence Hernandez MD LAB_1 Performing Organization Address City/State/ZIP Code Phon e Number HP CONVERSION Total Protein,Urine Random (07/26/2008 3:27 PM NEGATIVE TURNER) P athologist Signature Urine Protein, 6 mg/dL HP CONVERSION Random Specimen (Source) Anatomical Collection Method Collection Time Re ceived Time Location / / Volume Laterality 07/26/2008 3:27 PM NEGATIVE TURNER Terrence Hernandez MD LAB_1 Performing Organization Address City/[facility]/ZIP Code Phon e Number HP CONVERSION BUN (07/26/2008 1:39 PM NEGATIVE TURNER) athologist Signature Blood Urea 20 5 - 26 HP CONVERSION Nitrogen mg/dL Specimen (Source) Anatomical Collection Method Collection Time Re ceived Time Location / / Volume Laterality 07/26/2008 1:39 PM NEGATIVE TURNER Terrence Hernandez MD LAB_1 Performing Organization Address [facility] Phon e Number HP CONVERSION Calcium (07/26/2008 1:39 PM NEGATIVE TURNER) athologist Signature Calcium 10.2 8.5 - 10.5 HP CONVERSION mg/dL Specimen (Source) Anatomical Collection Method Collection Time Re ceived Time Location / / Volume Laterality 07/26/2008 1:39 PM NEGATIVE TURNER Terrence Hernandez MD LAB_1 Performing Organization Address [facility] Phon e Number HP CONVERSION (ABNORMAL) Creatinine / GFR (07/26/2008 1:39 PM NEGATIVE TURNER) [facility] Signature Creatinine 1.4 (H) 0.4 - 1.3 HP CONVERSION Serum mg/dL Est GFR >60 >60 HP CONVERSION Am Comment: -Panamanian and Vqv-Wmnnsmu-Tjwuwyo n reference range units: mL/min/1.73m2 Normal>60, moderate decrease 30 - 59, se alexia decrease 15 - 29, renal failure <15 mL/min/1.73 m2 NOTE: Choose the eGFR result above appro priate for the race of the patient. Est GFR Non-Afr Am 54 (L) >60 HP CONVERSI ON Specimen (Source) Anatomical Collection Method Collection Time Re ceived Time Location / / Volume Laterality 07/26/2008 1:39 PM NEGATIVE TURNER Terrence Hernandez MD LAB_1 Performing Organization Address [facility] Phon e Number HP CONVERSION Phosphorus (07/26/2008 1:39 PM NEGATIVE TURNER) athologist Signature Phosphorus 3.6 2.5 - 4.5 HP CONVERSION Serum mg/dL Specimen (Source) Anatomical Collection Method Collection Time Re ceived Time Location / / Volume Laterality 07/26/2008 1:39 PM NEGATIVE TURNER Terrence Hernandez MD LAB_1 Performing Organization Address City/State/ZIP Code Phon e Number HP CONVERSION Electrolytes (NA, K, CL, Bicarb) (07/26/2008 1:39 PM NEGATIVE TURNER) athologist Signature Sodium 141 137 - 147 HP CONVERSION mEq/L Potassium 4.6 3.5 - 5.2 HP CONVERSION mEq/L Chloride 107 98 - 110 HP CONVERSION mEq/L Bicarbonate 26 23 - 33 HP CONVERSION mmol/L Specimen (Source) Anatomical Collection Method Collection Time Re ceived Time Location / / Volume Laterality 07/26/2008 1:39 PM NEGATIVE TURNER Terrence Hernandez MD LAB_1 Performing Organization Address City/State/ZIP Code Phon e Number HP CONVERSION Neutrophil Cytoplasm Ab W/Reflex (07/26/2008 1:39 PM NEGATIVE TURNER) Analysis Performed At Patho logist Time Signature Neutrophilic <1:20 <1:20 HP CONVERSION Cytoplasmic Ab IgG Comment: 0 result for MPO and PR3 Antibodies me ans these tests were not performed because the ANCA IFA was negative. TEST INFORMATION: Anti-Neutrophil Cyto A b, IgG Neutrophil Cytoplasmic Antibodies (C-ANC A = granular cytoplasmic staining, P-ANCA = perinucle ar staining) are found in the serum of over 90% of patien ts with certain necrotizing systemic vasculitides, and u sually in less than 5% of patients with collagen vascul ar disease or arthritis. ? ANCA'S IN VASCULIT IC SYNDROMES ?Appr ox % ?Approx % of ?Pos ANCA ?patients demonstrating ? (combined patterns ) ?? C Pattern ?? P Pattern Larry's granulomatosis: -Active Generalized ?? 85 - 92 ?85 - 90 ? 2 - 5 -Limited forms ?60 - 67 ?85 - 90 ? 2 - 5 -Inactive ? 30 - 35 ?85 - 90 ? 2 - 5 Idiopathic Crescentic Glomerulonephritis ?80 ?some* ? majority* Polyarteritis Nodosa ?50 ? 86 ? 14 Churg - Jessy ? 50 ? 80 ? 20 SLE ? less than 10 ? 0 ?greater than 90 Rheumatoid Arthritis ??less than 5 ?0 ?greater than 90 Sjogren's Syndrome ?25 ? 0 ?greater than 90 *No quantitation in the literature. Myeloperoxidase Antibody 0 0 - 19 AU/mL HP CONVERSION Serine Protease 3 Ab 0 0 - 19 AU/mL HP CON VERSION Comment: Performed at [facility] ([facility]) [address] [place] [phone] 8 Specimen (Source) Anatomical Collection Method Collection Time Re ceived Time Location / / Volume Laterality 07/26/2008 1:39 PM NEGATIVE TURNER Terrence Hernandez MD LAB_1 Performing Organization Address City/State/ZIP Code Phon e Number HP CONVERSION C3 Complement (07/26/2008 1:39 PM NEGATIVE TURNER) athologist Signature C3 Complement 154 90 - 180 HP CONVERSION mg/dL Specimen (Source) Anatomical Collection Method Collection Time Re ceived Time Location / / Volume Laterality 07/26/2008 1:39 PM NEGATIVE TURNER Terrence Hernandez MD LAB_1 Performing Organization Address City/State/ZIP Code Phon e Number HP CONVERSION C4 Complement (07/26/2008 1:39 PM NEGATIVE TURNER) athologist Signature C4 Complement 37 10 - 45 HP CONVERSION mg/dL Specimen (Source) Anatomical Collection Method Collection Time Re ceived Time Location / / Volume Laterality 07/26/2008 1:39 PM NEGATIVE TURNER Terrence Hernandez MD LAB_1 Performing Organization Address City/State/ZIP Code Phon e Number HP CONVERSION (ABNORMAL) ELP, Becker, Serum (07/26/2008 1:39 PM NEGATIVE TURNER) [facility] gist Method Time Signature Pspgn-6-Svciak 0.2 0.1 - 0.4 HP CONVERSION in gm/dL Rdrxn-2-Mozfal 0.7 0.3 - 1.1 HP CONVERSION in gm/dL Beta Globulin 1.3 (H) 0.5 - 1.2 HP CONVERSION gm/dL Gamma Globulin 1.3 0.6 - 1.4 HP CONVERSION gm/dL S ELP Interp See Note No normal HP CONVERSION range Comment: One measured value is slightly outside t he normal range; the pattern is otherwise normal. ?(CPS) Protein Total, Serum 8.1 5.7 - 8.3 g/dL HP C ONVERSION Albumin 4.6 3.0 - 5.0 g/dL HP CONVERSION Specimen (Source) Anatomical Collection Method Collection Time Re ceived Time Location / / Volume Laterality 07/26/2008 1:39 PM NEGATIVE TURNER Terrence Hernandez MD LAB_1 Performing Organization Address City/State/ZIP Code Phon e Number HP CONVERSION Glomerular Basement Membr AB Panel (07/26/2008 1:39 PM NEGATIVE TURNER) athologist Signature GBM IgG 0 0 - 19 AU/mL HP CONVERSION Comment: REFERENCE INTERVAL: Glomerular Basement Membrane Ab, IgG ??19 AU/mL or Less ......... Negative ??20-25 AU/mL .............. Equivocal ??26 AU/mL or Greater ...... Positive The presence of anti-glomerular basement membrane (GBM) antibodies by multi-analyte fluorescent detection (MAFD) may aid in the diagnosis of Goodpasture syndrome. False positive results may occur due to reacti vity against other chains of type IV collagen. If MAF D is negative but there is a strong suspicion for disease, renal biopsy may be indicated. A renal biopsy may also be essential in suspected Goodpasture disease with renal involvement, allowing diagnostic confirmation and ass essment of renal prognosis. Glomerular Basement Membrane IgG (IFA) Negative Negative HP CONVERSION Comment: TEST INFORMATION: ??GBM Ab, IgG (IFA) This test was developed and its performa nce characteristics determined by [facility]. The U.S. Food and Drug Administration has not jamie roved or cleared this test; however, FDA clearance or jamie roval is not currently required for clinical use. The results are not intended to be used as the sole means fo r clinical diagnosis or patient management decision s. The anti-GBM IFA methodology has been sh own to be less specific than the quantitative tests for circulating antibodies such as the Multi-Analyte Flu orescent Detection (MAFD). ??The antibody used in this assay, although directed to the human IgG F(ab' )2, can bind to light chain sites common to all immunogl obulins causing it to be more sensitive but less specific. ??The determination of a positive result is based upon a dif fuse linear staining pattern as viewed through a flu orescent microscope, all positive results should be confirmed by quantitative tests and/or renal biopsy. Glomerular Basement Membrane IgA (IFA) Negative Negative HP CONVERSION Comment: TEST INFORMATION: ??GBM Ab, IgA (IFA) This test was developed and its performa nce characteristics determined by [employer]. The U.S. Food and Drug Administration has not jamie roved or cleared this test; however, FDA clearance or jamie roval is not currently required for clinical use. The results are not intended to be used as the sole means fo r clinical diagnosis or patient management decision s. Performed at [facility] ([facility]) [address] [place] [address] 8 Specimen (Source) Anatomical Collection Method Collection Time Re ceived Time Location / / Volume Laterality 07/26/2008 1:39 PM NEGATIVE TURNER Terrence Hernandez MD LAB_1 Performing Organization Address [facility] Phon e Number HP CONVERSION (ABNORMAL) Vitamin D 25 OH (07/26/2008 1:39 PM NEGATIVE TURNER) P athologist Signature Vitamin D 25 12 (L) 30 - 80 HP CONVERSION Oh ng/mL Comment: TEST INFORMATION: VITAMIN D, 25-HYDROXY This assay accurately quantifies the sum of vitamin D3, 25-hydroxy and vitamin D2, 25-hydroxy. Deficiency: ??Less than 20 ng/mL Insufficiency: ??20-29 ng/mL Optimum Level: ??30-80 ng/mL Possible Toxicity: ??Greater than 80 ng/ mL Performed at [facility] ([facility]) [address] [place] [address] 84 8 Specimen (Source) Anatomical Collection Method Collection Time Re ceived Time Location / / Volume Laterality 07/26/2008 1:39 PM NEGATIVE TURNER Terrence Hernandez MD LAB_1 Performing Organization Address [facility] Phon e Number HP CONVERSION Complete Blood Count-No Diff (07/26/2008 1:39 PM NEGATIVE TURNER) athologist Signature White Blood Cell 9.5 3.8 - 11.0 HP CONVERSIO N Count K/cmm Red Blood Cell 5.15 4.20 - HP CONVERSION Count 5.90 m/cmm Hemoglobin 15.9 13.4 - HP CONVERSION 17.5 gm/dL Hematocrit 46.2 39.0 - HP CONVERSION 51.0 % Mean Corpuscular 89.6 80.0 - HP CONVERSION Volume 100.0 fl Mean Corpuscular 30.9 27.0 - HP CONVERSION Hemoglobin 34.0 pg Mean Corpuscular 34.5 32.0 - HP CONVERSION Hemoglobin Conc 36.5 gm/dL [place] RDW 12.6 11.0 - HP CONVERSION 15.0 % Platelet Count 346 140 - 450 HP CONVERSION k/cmm Specimen (Source) Anatomical Collection Method Collection Time Re ceived Time Location / / Volume Laterality 07/26/2008 1:39 PM NEGATIVE TURNER Terrence Hernandez MD LAB_1 Performing Organization Address [facility] Phon e Number HP CONVERSION INR/Protime (07/26/2008 1:39 PM NEGATIVE TURNER) [facility] Signature Prothrombin Time 13.0 12.6 - 15.0 [place] CONVERSI ON sec INR 1.0 No normal HP CONVERSION range Comment: Recommendations for INR in warfarin ther apy: (Chest, Vol. 119, No. 1, Jul 2000, Suppl ement). Prevention and treatment of venous throm bosis; ? INR 2.0-3.0 Treatment of PE; Prevention of systemic embolism due to prosthetic tissue heart valves, b ileaflet mechanical valves in the aortic position , acute [place], valvular heart disease and atrial fibril lation. Mechanical prosthetic valves, (high risk ). ? INR 2.5-3.5 Prevention of recurrent myocardial infar ct. These recommended ranges serve as guidel nila. Adjustment outside these ranges may be clinically indicated. Specimen (Source) Anatomical Collection Method Collection Time Re ceived Time Location / / Volume Laterality 07/26/2008 1:39 PM NEGATIVE TURNER Terrence Hernandez MD LAB_1 Performing Organization Address [facility] Phon e Number HP CONVERSION JHOAN Screen (07/26/2008 1:39 PM NEGATIVE TURNER) Analysis Performed At Patho logist Time Signature Anti-Nuclear Negative Negative HP CONVERSION Ab Specimen (Source) Anatomical Collection Method Collection Time Re ceived Time Location / / Volume Laterality 07/26/2008 1:39 PM NEGATIVE TURNER Terrence Hernandez MD LAB_1 Performing Organization Address [facility] Phon e Number HP CONVERSION Intact PTH (07/26/2008 1:39 PM NEGATIVE TURNER) P athologist Signature PTH 84 10 - 100 HP CONVERSION pg/mL Specimen (Source) Anatomical Collection Method Collection Time Re ceived Time Location / / Volume Laterality 07/26/2008 1:39 PM NEGATIVE TURNER Terrence Hernandez MD LAB_1 Performing Organization Address [facility] Phon e Number HP CONVERSION (ABNORMAL) Total Protein+Alb (07/26/2008 1:39 PM NEGATIVE TURNER) P athologist Signature Protein Total, 8.1 5.7 - 8.3 HP CONVERSION Serum gm/dL Albumin 5.2 (H) 3.4 - 5.0 HP CONVERSION g/dL Globulin Serum 2.9 1.8 - 3.9 HP CONVERSION gm/dL Specimen (Source) Anatomical Collection Method Collection Time Re ceived Time Location / / Volume Laterality 07/26/2008 1:39 PM NEGATIVE TURNER Terrence Hernandez MD LAB_1 Performing Organization Address City/State/ZIP Code Phon e Number HP CONVERSION documented in this encounter Visit Diagnoses Not on filedocumented in this encounter Care Teams [place] Weapon System Operator Relationship Specialty Start Date End Date Hansa Lewis, THERMODYNAMICIST, SUPERVISOR TOWER PCP - General 10/22/10 11/30/[id number] [place] [address] documented as of this encounter
--- OUTSIDE RECORDS SUMMARY | 2022-04-16 08:13 | XMS_ITS | Encounter Summary ---
:1960 Author Organization [facility] Address [address], [place] [address] Care Team Providers Name Role Phone Hansa Lewis YARED NGUYỄN Primary Care Provider [phone] Encounter Details Date Type Department Care Team Description 08/07/2007 PN Conversion Only [place] [address] [facility] [address] [place] [address] [place], [place] [id number] (Wo rk) Social History Tobacco Use Types Packs/Day Years Used Date Smoking Tobacco: Never Assessed Sex Assigned at Date Recorded Not on file documented as of this encounter Plan of Treatment Not on filedocumented as of this encounter Procedures Procedure Name Priority Date/Time Associated Diagnosis Comme nts COMPLETE BLOOD Routine 08/07/2007 7:56 AM Results for this COUNT-W/DIFF TOE STRIPPER procedure are i n the results section. ALT (SGPT) Routine 08/07/2007 7:56 AM Results f or this TOE STRIPPER procedure are i n the results section. AST Routine 08/07/2007 7:56 AM Results f or this TOE STRIPPER procedure are i n the results section. BILIRUBIN, TOTAL Routine 08/07/2007 7:56 AM Resul ts for this TOE STRIPPER procedure are i n the results section. BILI - DIRECT Routine 08/07/2007 7:56 AM Results for this TOE STRIPPER procedure are i n the results section. ALKALINE Routine 08/07/2007 7:56 AM Results f or this PHOSPHATASE, TOTAL TOE STRIPPER procedure are in the results section. INR/PROTIME Routine 08/07/2007 7:56 AM Results f or this TOE STRIPPER procedure are i n the results section. documented in this encounter Results Complete Blood Count-W/Diff (08/07/2007 7:56 AM TOE STRIPPER) [facility] Method Time Signature White Blood Cell 5.9 3.8 - 11.0 HP CONVERSIO N Count K/cmm Red Blood Cell 4.91 4.20 - HP CONVERSION Count 5.90 m/cmm Hemoglobin 14.8 13.4 - HP CONVERSION 17.5 gm/dL Hematocrit 44.7 39.0 - HP CONVERSION 51.0 % Mean Corpuscular 91.1 80.0 - HP CONVERSION Volume 100.0 fl Mean Corpuscular 30.1 27.0 - HP CONVERSION Hemoglobin 34.0 pg Mean Corpuscular 33.1 32.0 - HP CONVERSION Hemoglobin Conc 36.5 gm/dL [place] RDW 12.4 11.0 - HP CONVERSION 15.0 % Platelet Count 332 140 - 450 HP CONVERSION k/cmm Differential Auto-Dif No normal HP CONVERSION Verify range Neutrophils 3.7 2.0 - 7.5 HP CONVERSION Absolute Count K/cmm Neutrophil 63.2 50.0 - HP CONVERSION 75.0 % Lymphocyte % 27.4 20.0 - HP CONVERSION 40.0 % Monocyte 7.8 5.0 - 14.0 HP CONVERSION % Eosinophil 1.3 0.0 - 6.0 HP CONVERSION % Basophil % 0.3 0.0 - 2.0 HP CONVERSION % Specimen (Source) Anatomical Collection Method Collection Time Re ceived Time Location / / Volume Laterality 08/07/2007 7:56 AM TOE STRIPPER Philip Nelson MD LAB_1 Performing Organization Address City/State/ZIP Code Phon e Number HP CONVERSION Alkaline Phosphatase, Total (08/07/2007 7:56 AM TOE STRIPPER) P athologist Signature Alk Phos 62 25 - 135 U/L HP CONVERSION Specimen (Source) Anatomical Collection Method Collection Time Re ceived Time Location / / Volume Laterality 08/07/2007 7:56 AM TOE STRIPPER Philip Nelson MD LAB_1 Performing Organization Address City/State/ZIP Code Phon e Number HP CONVERSION ALT (SGPT) (08/07/2007 7:56 AM TOE STRIPPER) Patholo gist Method Time Signature Alanine 37 4 - 55 HP CONVERSION Aminotransferase U/L Specimen (Source) Anatomical Collection Method Collection Time Re ceived Time Location / / Volume Laterality 08/07/2007 7:56 AM TOE STRIPPER Philip Nelson MD LAB_1 Performing Organization Address [facility] Phon e Number HP CONVERSION AST (08/07/2007 7:56 AM TOE STRIPPER) Patholo gist Method Time Signature Aspartate 24 0 - 45 HP CONVERSION Aminotransferase U/L Specimen (Source) Anatomical Collection Method Collection Time Re ceived Time Location / / Volume Laterality 08/07/2007 7:56 AM TOE STRIPPER Philip Nelson MD LAB_1 Performing Organization Address [facility] Phon e Number HP CONVERSION Bilirubin, Direct (08/07/2007 7:56 AM TOE STRIPPER) P athologist Signature Bilirubin, 0.3 0.0 - 0.4 HP CONVERSION Direct mg/dL Specimen (Source) Anatomical Collection Method Collection Time Re ceived Time Location / / Volume Laterality 08/07/2007 7:56 AM TOE STRIPPER Philip Nelson MD LAB_1 Performing Organization Address [facility] Phon e Number HP CONVERSION Bilirubin, Total (08/07/2007 7:56 AM TOE STRIPPER) P athologist Signature Bilirubin Total 1.0 0.2 - 1.2 HP CONVERSION mg/dL Specimen (Source) Anatomical Collection Method Collection Time Re ceived Time Location / / Volume Laterality 08/07/2007 7:56 AM TOE STRIPPER Philip Nelson MD LAB_1 Performing Organization Address [facility] Phon e Number HP CONVERSION INR/Protime (08/07/2007 7:56 AM TOE STRIPPER) Analysis Performed At Patho logist Time Signature Prothrombin Time 14.0 12.6 - 15.0 HP CONVERSI ON sec INR 1.1 No normal HP CONVERSION range Comment: Recommendations for INR in warfarin ther apy: (Chest, Vol. 119, No. 1, Jul 2000, Suppl ement). Prevention and treatment of venous throm bosis; ? INR 2.0-3.0 Treatment of PE; Prevention of systemic embolism due to prosthetic tissue heart valves, b ileaflet mechanical valves in the aortic position , acute [place], valvular heart disease and atrial fibril lation. Mechanical prosthetic valves, (high risk ). ? INR 2.5-3.5 Prevention of recurrent myocardial infar ct. These recommended ranges serve as guidel nila. Adjustment outside these ranges may be clinically indicated. Specimen (Source) Anatomical Collection Method Collection Time Re ceived Time Location / / Volume Laterality 08/07/2007 7:56 AM TOE STRIPPER Philip Nelson MD LAB_1 Performing Organization Address City/State/ZIP Code Phon e Number HP CONVERSION documented in this encounter Visit Diagnoses Not on filedocumented in this encounter Care Teams Credentialing Assistant Relationship Specialty Start Date End Date Hansa Lewis APRN, PLATING TANK OPERATOR PCP - General 10/22/10 11/30/12 [address] [id number] documented as of this encounter
--- OUTSIDE RECORDS SUMMARY | 2022-04-16 08:13 | XMS_ITS | Encounter Summary ---
:1960 Author Organization [employer] Address [address] [place] [address] Care Team Providers Name Role Phone Hansa Lewis APRN, [facility] Primary Care Provider [phone] Encounter Details Date Type Department Care Team Description 07/03/2008 PN Conversion Only IAEGER CONVERSIO N Hansa Lewis APRN, [address] [place] [address] [facility] [address] [address] (Wo rk) Social History Tobacco Use Types Packs/Day Years Used Date Smoking Tobacco: Never Assessed Sex Assigned at Date Recorded Not on file documented as of this encounter Plan of Treatment Not on filedocumented as of this encounter Procedures Procedure Name Priority Date/Time Associated Comments Diagnosis URINALYSIS Routine 07/03/2008 8:34 AM Results f or this ROUTINE(MICRO IF POS) [employer] proced ure are in the results section. URINALYSIS Routine 07/03/2008 8:34 AM Results f or this MICROSCOPIC [employer] procedure are i n the results section. CREATININE / GFR Routine 07/03/2008 8:34 AM Resul ts for this [employer] procedure are i n the results section. ALBUMIN/CREAT RATIO Routine 07/03/2008 8:34 AM Re sults for this [employer] procedure are i n the results section. documented in this encounter Results (ABNORMAL) Creatinine / GFR (07/03/2008 8:34 AM REPA[employer]) Analysis Performed At Patho logist Time Signature Creatinine 1.8 (H) 0.4 - 1.3 HP CONVERSION Serum mg/dL Est GFR 49 (L) >60 HP CONVERSION Am Comment: -[place] African and Gjm-Rcwrmcm-Surfdbd n reference range units: mL/min/1.73m2 Normal>60, moderate decrease 30 - 59, se alexia decrease 15 - 29, renal failure <15 mL/min/1.73 m2 NOTE: Choose the eGFR result above appro priate for the race of the patient. Est GFR Non-Afr Am 41 (L) >60 HP CONVERSI ON Specimen (Source) Anatomical Collection Method Collection Time Re ceived Time Location / / Volume Laterality 07/03/2008 8:34 AM [employer] Hansa Lewis APRN, CNP LAB_1 Performing Organization Address [facility] Phon e Number HP CONVERSION Urinalysis Routine(Micro If Pos) (07/03/2008 8:34 AM [employer]) Fundgrazing Method Time Signature Turbidity Clear No normal HP CONVERSION range pH Urine 5.0 4.5 - 7.5 HP CONVERSION Protein Urine Trace Neg-Trac HP CONVERSION Glucose, Negative Neg-Trac HP CONVERSION Qualitative U Ketones Negative Negative HP CONVERSION U BILI Negative Negative HP CONVERSION Blood Urine Negative Negative HP CONVERSION Nitrite Urine Negative Negative HP CONVERSION Leukocyte Negative Negative HP CONVERSION Esterase Urine Urobilinogen Negative 0.2 - 1.0 HP CONVERSION Urine U Specific >=1.030 1.005 - 25 HP CONVERSION Enterprise Specimen (Source) Anatomical Collection Method Collection Time Re ceived Time Location / / Volume Laterality 07/03/2008 8:34 AM [employer] Hansa Lewis APRN, CNP LAB_1 Performing Organization Address [facility] Phon e Number HP CONVERSION (ABNORMAL) Urinalysis Microscopic (07/03/2008 8:34 AM [employer]) Venuu gist Method Time Signature White Blood 0-2/HPF 0 - 3 HP CONVERSION Cells Urine Red Blood Negative 0 - 2 HP CONVERSION Cells Urine Bacteria Occassnl (A) None HP CONVERSION Urine Urine Mucus Moderate None HP CONVERSION Specimen (Source) Anatomical Collection Method Collection Time Re ceived Time Location / / Volume Laterality 07/03/2008 8:34 AM [employer] Hansa Lewis APRN, CNP LAB_1 Performing Organization Address [facility] Phon e Number HP CONVERSION (ABNORMAL) Microalb/Creat Ratio (07/03/2008 8:34 AM [employer]) Patholo gist Method Time Signature U Creat Random 395 mg/dL HP CONVERSION Microalbumin 35.0 (H) 0.0 - HP CONVERSION Urine 30.0 mg/L Microalbumin/Cre 8.9 0.0 - HP CONVERSION atinine Ratio 30.0 mg/G Comment: Your result is normal because there is l ittle or no protein in the urine, usually indicating healthy kidneys. Specimen (Source) Anatomical Collection Method Collection Time Re ceived Time Location / / Volume Laterality 07/03/2008 8:34 AM [employer] Hansa Lewis APRN, CNP LAB_1 Performing Organization Address City/State/ZIP Code Phon e Number HP CONVERSION documented in this encounter Visit Diagnoses Not on filedocumented in this encounter Care Teams Shoe Caser Relationship Specialty Start Date End Date Hansa Lewis APRN, CNP PCP - General 10/22/10 11/30/12 [address] [address] [place] [id number] documented as of this encounter
--- OUTSIDE RECORDS SUMMARY | 2022-04-16 08:13 | XMS_ITS | Encounter Summary ---
:1960 Author Organization [facility] Address [address] [place] [address] Care Team Providers Name Role Phone Hansa Lewis YARED NGUYỄN Primary Care Provider [phone] Reason for Visit Reason Comments Other Encounter Details Date Type Department Care Team Description 08/05/2007 Telephone [facility] 6[address] Jose Bell RN Other Gastroenterology [address] [facility] [place] [address] Social History Tobacco Use Types Packs/Day Years Used Date Smoking Tobacco: Never Assessed Sex Assigned at Date Recorded Not on file documented as of this encounter Progress Notes Jose Bell RN - 08/05/2007 9:08 AM CST Phone Note filed by Jose Bell RN at 11/08/10 8439 Author: Jose Bell RN Service: (none) Author Type: Registered Nurse Filed: 11/08/10 6797 Note Time: 08/05/0708 Status: Signed Vice President [employer]ights: Jose Bell RN (Registered Nurse) pt's Veronica calling today. PMD recommended appt with GI. pt's bilirubin elevated over past couple of months. Intermittent jaudice of eyes noted. Other LFT's WNL. Had US which showed fatty liver. No travel outside of [place]. 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 No fevers. Pt loosing weight intentionally. recommendations? Created on 05Aug2007 9:08am by JOSE BELL On 05Aug2007 10:35am ALEXI SHEIKH wrote: Confirm no abdominal pain or fever. Arrange CT abd/pelvis (PANCREAS protocol please) with contrast this week, indication abnl LFT's. Call for CT results. Check CBC, INR, AST,ALT,ALk Phos, TB,DB this week again. Set up consult appt as extra in my clinic on Friday 08/18 at 0900. Thanks. Acknowledged by ALEXI SHEIKH on 10:35am On 05Aug2007 10:56am JOSE BELL wrote: LM TCB Acknowledged by JOSE BELL on 10:56am On 05Aug2007 1:15pm JOSE BELL wrote: pt's called back, lab slip to [facility]. [facility] will read and call. appt made as requested. REGULATOR documented in this encounter Plan of Treatment Not on filedocumented as of this encounter Visit Diagnoses Not on filedocumented in this encounter Care Teams Horse And Wagon Driver Relationship Specialty Start Date End Date Hansa Lewis APRN, HARDWARE INSTALLER PCP - General 10/22/10 11/30/12 [address] [address] [place] [address] documented as of this encounter
--- OUTSIDE RECORDS SUMMARY | 2022-04-16 08:13 | XMS_ITS | Encounter Summary ---
:1960 Author Organization [employer] Address [address], [place] [address] Care Team Providers Name Role Phone Hansa Lewis APRN, [facility] Primary Care Provider [phone] Encounter Details Date Type Department Care Team Description 05/31/2008 PN Conversion Only [place]ACE[place] CONVERSIO N Hansa Lewis APRN, [address] [place] [address] [facility] [place] [address] (Wo rk) Social History Tobacco Use Types Packs/Day Years Used Date Smoking Tobacco: Never Assessed Sex Assigned at Date Recorded Not on file documented as of this encounter Plan of Treatment Not on filedocumented as of this encounter Procedures Procedure Name Priority Date/Time Associated Comments Diagnosis TOTAL PROTEIN UR 24 Routine 05/31/2008 10:35 AM R esults for this HR DYE MAKER procedure are i n the results section. CREATININE CLEARANCE Routine 05/31/2008 10:35 AM Results for this DYE MAKER procedure are i n the results section. documented in this encounter Results (ABNORMAL) Creatinine Clearance (05/31/2008 10:35 AM DYE MAKER) Analysis Performed At [facility] Time Signature Height 72 in. HP CONVERSION Weight 176 lbs. HP CONVERSION Body Surface 2.02 0.70 - HP CONVERSION Area 3.00 Total Volume 1,250 mL HP CONVERSION Hours Of 24 Hrs HP CONVERSION Collection Creatinine 1.5 (H) 0.4 - 1.3 HP CONVERSION Serum mg/dL Creatinine 24 1,738 1,000 - HP CONVERSION Hour Urine 2,000 mg/24h U Creat Random 139 mg/dL HP CONVERSION Creatinine 69 (L) 85 - 125 HP CONVERSION Clearance mL/min Specimen (Source) Anatomical Collection Method Collection Time Re ceived Time Location / / Volume Laterality 05/31/2008 10:35 AM DYE MAKER Hansa Lewis APRN, CNP LAB_1 Performing Organization Address City/[facility]/ZIP Code Phon e Number HP CONVERSION Total Protein Urine 24 Hr (05/31/2008 10:35 AM DYE MAKER) P athologist Signature Urine Protein 75 0 - 165 HP CONVERSION 24 hr mg/24h Urine Protein, 6 mg/dL HP CONVERSION Random Total Volume 1,250 mL HP CONVERSION Urine Protein Specimen (Source) Anatomical Collection Method Collection Time Re ceived Time Location / / Volume Laterality 05/31/2008 10:35 AM DYE MAKER Hansa Lewis APRN, CNP LAB_1 Performing Organization Address City/[facility] Code Phon e Number HP CONVERSION documented in this encounter Visit Diagnoses Not on filedocumented in this encounter Care Teams Power Distribution Engineer Relationship Specialty Start Date End Date Hansa Lewis APRN, CNP PCP - General 10/22/10 11/30/12 [address] [address] [place] [id number] documented as of this encounter
--- OUTSIDE RECORDS SUMMARY | 2022-04-16 08:13 | XMS_ITS | Encounter Summary ---
:1960 Author Organization [facility] Address [address] [place] [address] Care Team Providers Name Role Phone Hansa Lewis APRN, CNP Primary Care Provider [phone] Reason for Visit Reason Comments Other Encounter Details Date Type Department Care Team Description 06/07/2008 Telephone [facility], Message Other [address] [place] [address] Social History Tobacco Use Types Packs/Day Years Used Date Smoking Tobacco: Never Assessed Sex Assigned at Date Recorded Not on file documented as of this encounter Progress Notes Center, Message - 06/07/2008 10:50 AM CST Phone Note filed by [employer] at 11/09/10 1037 Author: [employer] Service: (none) Author Type: (none) Filed: 11/09/10 1037 Note Time: 06/07/08 1050 Status: Signed Director Of Instrumental Music: [employer] Front Line Sx Call Caller Name/Relationship: Veronica/ Primary Wool Presser: Joshua Symptom or request? states she tried to call kidney specialist, cannot get in until July, wondering if she can get referral to be seen sooner. Is appointment scheduled & when? no Diet Attendant: Veronica Best call back number: [phone] or [phone] Is it OK to leave a confidential message on this voicemail? yes *[id number] Created on 07Jun2008 10:50am by KAM DANIELLE M On 07Jun2008 11:21am HANSA LEWIS wrote: July will be okay Acknowledged by HANSA LEWIS on 11:21am On 07Jun2008 11:35am AVTAR FABIAN wrote: notified pt needs to sign a consent in order for us to speak to his Acknowledged by AVTAR FABIAN on 11:35am documented in this encounter Plan of Treatment Not on filedocumented as of this encounter Visit Diagnoses Not on filedocumented in this encounter Care Teams Service Technician Relationship Specialty Start Date End Date Hansa Lewis APRN, DENTAL INSURANCE COORDINATOR PCP - General 10/22/10 11/30/12 [address] [address] [place] [address] documented as of this encounter
--- OUTSIDE RECORDS SUMMARY | 2022-04-16 08:13 | XMS_ITS | Encounter Summary ---
:1960 Author [facility] Address [address] [place] [address] Care Team Providers Name Role Phone Hansa Lewis YARED NGUYỄN Primary Care Provider [phone] Reason for Visit Reason Comments Other Encounter Details Date Type Department Care Team Description 09/02/2007 Telephone Specialty Center 6500 Jose Bell RN Other Gastroenterology [address] [facility] [place] [address] Social History Tobacco Use Types Packs/Day Years Used Date Smoking Tobacco: Never Assessed Sex Assigned at Date Recorded Not on file documented as of this encounter Progress Notes Jose Bell RN - 09/02/2007 10:00 AM CST Phone Note filed by Jose Bell RN at 11/08/10 8619 Author: Jose Bell RN Service: (none) Author Type: Registered Nurse Filed: 11/08/10 1414 Note Time: 09/02/07 1000 Status: Signed Export Agent: Jose Bell RN (Registered Nurse) Veronica, pt's calling. Entire family has gastritis today. cancelled appointment. did have MRI. Recommendations on when to see please. Created on 02Sep2007 10:00am by JOSE BELL On 02Sep2007 10:54am ALEXI SHEIKH wrote: Tell patient that MRCP was normal for stones or biliary problem. Remind him that LFT's did normalize in July. Reschedule him as consult in my next available open 30 min slot with AST,ALT,TB,DB, Alk Phos just right prior to appt so results back. Thanks. Acknowledged by ALEXI SHEIKH on 10:54am Acknowledged by JOSE BELL on 1:59pm [place] WIRELESS SALES REPRESENTATIVE documented in this encounter Plan of Treatment Not on filedocumented as of this encounter Visit Diagnoses Not on filedocumented in this encounter Care Teams Viscera Washer Relationship Specialty Start Date End Date Hansa Lewis, DELMA, READERS' ADVISORY SERVICE LIBRARIAN PCP - General 10/22/10 11/30/[address] [place] [address] documented as of this encounter
--- OUTSIDE RECORDS SUMMARY | 2022-04-16 08:13 | XMS_ITS | Encounter Summary ---
:1960 Author Organization [facility] Address [address], [place] [address] Care Team Providers Name Role Phone Hansa Lewis APRN, CNP Primary Care Provider [phone] Encounter Details Date Type Department Care Team Description 07/06/2008 PN Conversion Only [place] CONVERSIO N Hansa Lewis APRN, [address] [place] [address] [facility] [place], [place] [address] (Wo rk) Social History Tobacco Use Types Packs/Day Years Used Date Smoking Tobacco: Never Assessed Sex Assigned at Date Recorded Not on file documented as of this encounter Plan of Treatment Not on filedocumented as of this encounter Procedures Procedure Name Priority Date/Time Associated Diagnosis Comme nts POTASSIUM Routine 07/06/2008 4:19 PM Results f or this SOCIAL WORK ADMINISTRATOR procedure are i n the results section . documented in this encounter Results Potassium (07/06/2008 4:19 PM SOCIAL WORK ADMINISTRATOR) P athologist Signature Potassium 4.6 3.5 - 5.2 HP CONVERSION mEq/L Specimen (Source) Anatomical Collection Method Collection Time Re ceived Time Location / / Volume Laterality 07/06/2008 4:19 PM SOCIAL WORK ADMINISTRATOR Hansa Lewis APRN, CNP LAB_1 Performing Organization Address City/State/ZIP Code Phon e Number HP CONVERSION documented in this encounter Visit Diagnoses Not on filedocumented in this encounter Care Teams Computer Aide Relationship Specialty Start Date End Date Hansa Lewis APRN, CNP PCP - General 10/22/10 11/30/12 [address] [address] [place] [address] documented as of this encounter
--- OUTSIDE RECORDS SUMMARY | 2022-04-16 08:13 | XMS_ITS | Encounter Summary ---
:1960 Author Organization [employer] Address [address], [place] [address] Care Team Providers Name Role Phone Hansa Lewis YARED NGUYỄN Primary Care Provider [phone] Encounter Details Date Type Department Care Team Description 07/26/2008 Office Visit Specialty Center 39[address] Newton Hernandez MD Nephrology [address] [facility] [address] [facility] [address] [place] [address] [id number] [phone] Social History Tobacco Use Types Packs/Day Years Used Date Smoking Tobacco: Never Assessed Sex Assigned at Date Recorded Not on file documented as of this encounter Last Filed Vital Signs Vital Sign Reading Time Taken Comments Blood Pressure 122/68 07/26/2008 2:24 PM HOME HEALTH PROVIDER Pulse 62 07/26/2008 2:24 PM HOME HEALTH PROVIDER Temperature - - Respiratory Rate - - Oxygen Saturation - - Inhaled Oxygen Concentration - - Weight 79.8 kg (176 lb 0.2 oz) 07/26/2008 2:24 PM C: 79 .8kg HOME HEALTH PROVIDER Height 184.2 cm (6' 0.5) 07/26/2008 2:24 PM C: 184.2cm HOME HEALTH PROVIDER Body Mass Index 23.54 07/26/2008 2:24 PM HOME HEALTH PROVIDER documented in this encounter Progress Notes Terrence Hernandez MD - 07/26/2008 12:01 AM CST Progress Notes signed by Terrence Hernandez MD at 07/30/08 1009 Author: Terrence Hernandez MD Service: (none) Author Type: Physician Filed: 11/11/10 0950 Note Time: 07/26/08 0001 Status: Signed Residential Care Facility Manager: Terrence Hernandez MD (Physician) NAME: JOSH MOSLEY MR#: [id number] ACCT: [id number] VISIT: [id number] DICTATING CLINICIAN: Terrence Hernandez MD CONFIRM #: [id number] LOC: 236 CLINIC PROGRESS NOTE DATE OF VISIT: 07/26/2008 SUBJECTIVE: : 1960. Mr. Mosley is a 48-year-old gentleman with a past medical history significant for hypertension and being overweight, who presented to the clinic today at the request of Dr. Ananya Lewis for evaluation of an elevated creatinine. The patient has had an elevated creatinine going back approximately 3-4 years. His creatinine is usually in the 1.3 to 1.5 range. However, when it was noticed that his creatinine was 1.5 once again this past May, it is rechecked about a month later with the patient off the Diovan with an increase in his creatinine to 1.8. Please note that his previous creatinines have been in the normal range approximately 4 years ago, and then as the assay changed, it became slightly above normal. He was on Diovan at that time for hypertension. The patient himself says he feels quite good. He has been dieting very religiously over the last year or so. He lost weight from about a high of 210 to 215 down to 176 lb. He is rather proud of that and justifiably so. He did have a major diarrheal illness in the summer of 2006 and approximately last May he became quite jaundiced. 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 However, he did not actually see the drier feeder, at least I do not see any notes in our electronic medical record. It was their recommendation that he have an MRCP performed. The patient himself states that he feels quite good. He denies any problems with his urine. He denies any changes in his urine color, any hematuria, or any dysuria. He does note that earlier this year he fell on his back and injured his ribs on the right side and had some pain from that, but otherwise had no issues with this. In terms of review of systems, the patient had a complete review of systems performed and it was unremarkable. Please note that he has not had any problems with depression nor problems with erectile dysfunction with the 100 mg of atenolol. MEDICATIONS: Reviewed and are per the electronic medical record. He has not taken any NSAIDs in about 3 years. PAST MEDICAL HISTORY: 1. Status post varicose vein stripping. 2. Hypertension. 3. Possible fatty liver disease. 4. GERD. 5. Status post LASIK surgery approximately 3 years ago. 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 He is . Lives with his . He has 4 children. FAMILY HISTORY: Significant for no kidney disease. However, his mother and father both in her early 60s, his mother of an [place], his father of prostate cancer and lung disease. He has 6 siblings, none of whom have hypertension, none of whom have kidney disease. However, he has 3 brothers and 3 sisters, none of the males go see physicians and all of the females are currently in good health. OBJECTIVE: VS: BP: 122/68. P: 62. Ht: 72-1/2 in. Wt: 176.5 lb. This is a very pleasant gentleman in no acute distress. HEENT: His funduscopic exam is unremarkable, and his oropharynx is clear. NECK: Supple. HEART: Regular. LUNGS: Clear. ABDOMEN: Soft, nontender with positive bowel sounds. LOWER EXTREMITIES: Without any edema. He does have some varicosities in the right side. NEUROLOGIC: His reflexes are 2+ bilaterally in both the patella and biceps brachii. His strength is normal. SKIN: Without rashes. LABS: Dr. Lewis had previously obtained a 24 hour urine for creatinine clearance. It did show a decreased creatinine clearance at 69. He had no significant protein on that study. His albumin to creatinine ratio is 8.9. His hepatitis panel ordered about a year ago showed nonreactive hepatitis panel. The rest of his labs from today are pending. ASSESSMENT: This is a 48-year-old gentleman with stage 3 chronic kidney disease of uncertain etiology. The patient has no significant proteinuria, but does have a grossly elevated creatinine. He has no evidence of any nephritic pattern. This makes me concerned that the patient may have a chronic interstitial disease or he may have had an acute GN or other acute kidney disease that has subsequently resolved and has now improved. The fact that his renal ultrasound showed kidneys in the mid 9 cm size, it is slightly small for his size, but certainly not clearly small and not indicative of a medical renal disease in and of itself. Given this, I am favoring that we do a kidney biopsy for his diagnosis. The differential diagnosis here is quite broad, certainly hypertensive nephrosclerosis is that the most likely cause. However, given the fact that he is , this is less likely than it is in an population. An acute GN seems unlikely given the tempo of his creatinine, however, it is still possible. Membranous nephropathy or focal segmental glomerulosclerosis is also likely. However, the patient has no significant proteinuria which makes this much less likely. Given this, I do favor a kidney biopsy. The patient and I agreed that the kidney biopsy would likely be our way to go here, but first we are going to do the serological test, at which point we could go ahead and schedule a kidney biopsy. This will likely occur next week once we get the lab results back. I informed the patient of the risks and benefits of kidney biopsy, including bleeding and infection. PLAN: See assessment. CC: CRISTINA Steele AET:[email or web address] C: 07/27/08 11:16 CONFIRM #: [id number] HEALTH PROVIDER documented in this encounter Plan of Treatment Not on filedocumented as of this encounter Visit Diagnoses Not on filedocumented in this encounter Care Teams Chemical Analytical Sampler Relationship Specialty Start Date End Date Hansa Lewis APRN, BEN DAY ARTIST PCP - General 10/22/10 11/30/12 [address] [address] [place] [id number] documented as of this encounter
--- OUTSIDE RECORDS SUMMARY | 2022-04-16 08:13 | XMS_ITS | Encounter Summary ---
:1960 [facility] Address [address] [address] Care Team Providers Name Role Phone Hansa Lewis YARED NGUYỄN Primary Care Provider [phone] Reason for Visit Reason Comments Other Encounter Details Date Type Department Care Team Description 08/02/2008 Telephone [facility] 1 [facility], Message Other [address] [place] [address] Social History Tobacco Use Types Packs/Day Years Used Date Smoking Tobacco: Never Assessed Sex Assigned at Date Recorded Not on file documented as of this encounter Progress Notes Rubén Fabian LPN - 08/02/2008 10:59 AM CST Phone Note filed by Rubén Fabian LPN at 11/09/10 1433 Author: Rubén Fabian LPN Service: (none) Author Type: (none) Filed: 11/09/10 1433 Note Time: 08/02/08 1059 Status: Signed Egyptologist: Jacquelyn Colin Veronica patient calling and wants to know if you want to do biopsy on patient .# [phone] Created on 02Aug2008 10:59am by RUBÉN FABIAN On 02Aug2008 12:09pm EVA HERRING wrote: talked to patient this morning actually prior to this phone call. Trying to set it up for 19 Aug 2008 Acknowledged by EVA HERRING on 12:09pm On 02Aug2008 3:17pm RUBÉN FABIAN wrote: patient is set up for 08-19-08 @0800 and check in at 0700. Veronica patient is aware and I went over instruction sheet with her and mailed to patient home also. R JET LOOM FIXER documented in this encounter Plan of Treatment Not on filedocumented as of this encounter Visit Diagnoses Not on filedocumented in this encounter Care Teams Burn Table Operator Relationship Specialty Start Date End Date Hansa Lewis, DELMA, SEO COORDINATOR PCP - General 10/22/10 11/30/12 [address] [address] [place] [address] [address] documented as of this encounter
--- OUTSIDE RECORDS SUMMARY | 2022-04-16 08:13 | XMS_ITS | Encounter Summary ---
:1960 [facility] Address [address], [place] [address] Care Team Providers Name Role Phone Hansa Lewis YARED NGUYỄN Primary Care Provider [phone] Encounter Details Date Type Department Care Team Description 08/09/2008 Office Visit Specialty Center [address] Niraj Nelson MD [address]astroenterology [address] [place] [address] [place] [address] [phone] Social History Tobacco Use Types Packs/Day Years Used Date Smoking Tobacco: Never Assessed Sex Assigned at Date Recorded Not on file documented as of this encounter Last Filed Vital Signs Vital Sign Reading Time Taken Comments Blood Pressure 102/60 08/09/2008 8:29 AM SENSOR TECHNICIAN Pulse - - Temperature - - Respiratory Rate - - Oxygen Saturation - - Inhaled Oxygen Concentration - - Weight 80.3 kg (176 lb 15.8 oz) 08/09/2008 8:29 AM SENSOR TECHNICIAN C: 80.3kg Height - - Body Mass Index 23.67 07/26/2008 2:24 PM SENSOR TECHNICIAN documented in this encounter Progress Notes Philip Nelson MD - 08/09/2008 12:01 AM CST Progress Notes signed by Philip Nelson MD at 08/17/08 3962 Author: Philip Nelson MD Service: (none) Author Type: Physician Filed: 11/11/10 1010 Note Time: 08/09/08 0001 Status: Signed Transport Nurse: Philip Nelson MD (Physician) NAME: JOSH MOSLEY MR#: [id number] ACCT: [id number] VISIT: [id number] DICTATING CLINICIAN: Philip Nelson MD CONFIRM #: [id number] LOC: 3533 CLINIC PROGRESS NOTE DATE OF VISIT: 08/09/2008 SUBJECTIVE: CHIEF COMPLAINT: Abnormal liver tests. HISTORY OF PRESENT ILLNESS: I am asked to see the patient in consultation by CRISTINA Jama, for advice regarding the above complaint. Angely is a 48-year-old man referred for evaluation of abnormal liver tests. Angely was noted to have abnormal liver tests upon a life insurance physical back late in 2006. On review of his [employer] labs, it appears that his liver tests previously were normal in 1995, 08/2004, and he had an ALT that was minimally elevated at 85 when checked in 06/2006. After his life insurance physical, he had full liver tests checked here by his primary provider, and his ALT was minimally elevated at 63 with normal AST, alk phos, and total bilirubin. He was referred to GI but the patient did not keep the consultation. He did have several tests arranged which I had ordered prior to that planned consultation. Serologic workup for alternative causes of chronic hepatitis was unremarkable (discussed below(. Right upper quadrant ultrasound, which the primary provider had ordered 06/2007. Was consistent with diffuse fatty liver, but no biliary dilation was found and the gallbladder appeared normal. I had arranged for a CT scan 07/2007 per pancreas protocol and the pancreas was normal. The spleen showed calcified granuloma but was not enlarged. The liver was normal apart from fatty infiltration. Subsequent MRCP 08/2007, showed a normal biliary tree and pancreatic duct, and no gallstones were identified. Extensive laboratory evaluation including ferritin, alpha 1 antitrypsin phenotype, and gamma globulin level on protein electrophoresis, antinuclear antibody, antimitochondrial antibody, hepatitis B and C serologies were negative. The patient had impaired fasting glucose, hyperlipidemia, and was overweight. The patient 1 on diet and has lost a significant amount of weight, approximately 30 pounds over the last year and his current body mass index is 23.6. His ALT, which previously had been minimally elevated, has on subsequent followup now, normalized and his AST is also normal and this has been repeated on 2 occasions, in 07/2007, 09/2007, 04/2008 when last checked. Testing of his bilirubin on those occasions has suggested Gilbert syndrome with an elevated indirect bilirubin and his maximum total bilirubin was 1.9 in 07/2007 and when last checked in 04/2008, the total bilirubin was mildly elevated at 1.4 with a normal direct. His hemoglobin has consistently been normal. He is on no hepatotoxic medications. No herbs or alternative medications. No family history of liver disease. He drinks 2-3 alcoholic beverages per month with no alcohol abuse history. No history of recreational or intravenous drug use. No tattoos or body piercings. He has no symptoms such as abdominal pain, anorexia, nausea, or pruritus. PAST MEDICAL HISTORY: Impaired fasting glucose, hypertension, gastroesophageal reflux disease, hyperlipidemia, fatty liver, chronic renal insufficiency. He has seen Nephrology for this and a kidney biopsy is planned on 08/19 for further evaluation. PAST SURGICAL HISTORY: Status post left leg vein stripping. MEDICATIONS: Vitamin D, Prilosec 20 mg daily, atenolol 100 mg daily. No herbs or alternative medications. ADR/ALLERGIES: CODEINE (INTOLERANCE WITH NAUSEA). FAMILY HISTORY: No liver disease. No gastrointestinal malignancies. SOCIAL HISTORY: He is . 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 Does not smoke. Other habits unremarkable as discussed above. REVIEW OF SYSTEMS: Denies any fevers. Intentional nearly 30 pounds weight loss over the last year as discussed above. No shortness of breath or cough. No paresthesias or weakness. No dysuria. No rash. No pruritus. Previous heartburn but asymptomatic on Prilosec. No dysphagia. No odynophagia. No abdominal pain, nausea, vomiting, melena, hematochezia, diarrhea, or constipation. Remainder of complete review systems is negative except as noted in the history of present illness. OBJECTIVE: VS: BP: 108/60. Ht: 6 ft 1 in. Wt: 177 lb. BMI:23.6. GENERAL: Pleasant, well-developed, well-nourished man who is in no acute distress. HEENT: Sclerae anicteric. NECK: Supple without lymphadenopathy. CHEST: Clear to auscultation bilaterally. HEART: Regular rhythm, S1, S2. No murmurs, rubs, or gallops. ABDOMEN: Normal bowel sounds. Soft, nontender, nondistended. No hepatosplenomegaly or masses. EXTREMITIES: No clubbing or edema. SKIN: He is not jaundiced. No spider angiomas. No palmar erythema. NEUROLOGIC: Grossly nonfocal. LABS: On 07/26, complete blood count normal. White count 9.5, hemoglobin 15.9, MCV 89.6, platelets 246, ferritin normal at 195 in 07/2007. INR 1.0 this July. Electrolytes normal and creatinine 1.4 on 07/26. Liver tests are as documented in the HPI. His most recent liver tests on 05/19/08, alk phos normal at 66, total bili 1.4, direct bili 0.4, ALT 21, AST 20, LDH 181 (slightly above the upper limit of normal, which is 180. Alpha 1 antitrypsin phenotype normal- MM/lipids in April show an elevated total cholesterol of 232, triglycerides at 231, HDL 41, and LDL 145. Albumin normal at 4.6. His gammaglobulin level is normal at 1.3. JHOAN and antimitochondrial antibody negative, hepatitis A IgM negative, hepatitis B surface antigen negative, hepatitis B surface antibody negative, hepatitis C antibody negative. Imaging right upper quadrant ultrasound 06/2007, CT 07/2007, and MRCP 08/2007, as discussed above. ASSESSMENT: 1. Nonalcoholic fatty liver disease. Ultrasound and CT both document a fatty liver. This is the cause of this previously minimally elevated transaminases which subsequently has resolved with his weight loss. I did review with him fatty liver today, and he was provided with educational materials on this. Risk factors include impaired fasting glucose, previously being overweight, which has resolved with his significant intentional weight loss, and hyperlipidemia. Treatment of risk factor modification was discussed. He has no evidence clinically to suggest cirrhosis. I do not feel that a liver biopsy is warranted. It is possible that the fatty liver may have even resolved with his weight loss, but there is no reason to repeat imaging at this time. 2. Gilbert syndrome. He is indirect bilirubin elevation is related to the benign Gilbert syndrome. This was discussed with him and he was reassured. 3. Patient will resume primary followup with CRISTINA Jama. I would be happy to see him back in the future as needed. PLAN: See assessment. CC: CRISTINA Steele WILLIAMS:[id number] C: 08/09/08 13:25 CONFIRM #: [id number] OR TECHNICIAN documented in this encounter Plan of Treatment Not on filedocumented as of this encounter Visit Diagnoses Not on filedocumented in this encounter Care Teams Line Operator Relationship Specialty Start Date End Date Hansa Lewis APRN, RAILWAY SWITCHMAN PCP - General 10/22/10 11/30/12 [address] [place] [address] [address] documented as of this encounter
--- OUTSIDE RECORDS SUMMARY | 2022-04-16 08:13 | XMS_ITS | Encounter Summary ---
:1960 Author Organization [facility] Address [address], [place] [address] Care Team Providers Name Role Phone Hansa Lewis APRN, CNP Primary Care Provider [phone] Reason for Visit Reason Comments Other Encounter Details Date Type Department Care Team Description 08/11/2007 Telephone Specialty Center [address], Message [facility] er Gastroenterology [address] [facility] [place] [address] Social History Tobacco Use Types Packs/Day Years Used Date Smoking Tobacco: Never Assessed Sex Assigned at Date Recorded Not on file documented as of this encounter Progress Notes [place], Message - 08/11/2007 2:20 PM CST Phone Note filed by SnapYeti at 11/08/10 1250 Author: SnapYeti Service: (none) Author Type: (none) Filed: 11/08/10 1250 Note Time: 08/11/07 1420 Status: Signed Senior Ui Web Developer: SnapYeti Lab Letter sent to ptlori, copy sent to scan doc Created on 11Aug2007 2:20pm by VIVI SAMANIEGO CONSULTANT documented in this encounter Plan of Treatment Not on filedocumented as of this encounter Visit Diagnoses Not on filedocumented in this encounter Care Teams Supervisor [employer] Relationship Specialty Start Date End Date Hansa Lewis APRN, CNP PCP - General 10/22/10 11/30/12 [address] [place] [address] [place] [address] documented as of this encounter
--- OUTSIDE RECORDS SUMMARY | 2022-04-16 08:13 | XMS_ITS | Encounter Summary ---
:1960 Author Organization [facility] Address [address], [place] [address] Care Team Providers Name Role Phone Hansa Lewis APRN, CNP Primary Care Provider [phone] Reason for Visit Reason Comments Other Encounter Details Date Type Department Care Team Description 07/23/2008 Telephone [facility] Adelaida Lewis APRN, CNP Other Medicine [address] [facility] [address] [place] [address] [place] [address] [phone] Social History Tobacco Use Types Packs/Day Years Used Date Smoking Tobacco: Never Assessed Sex Assigned at Date Recorded Not on file documented as of this encounter Progress Reynold Mcdonough - 07/23/2008 11:00 AM CST Phone Note filed by Reynold Johnson RN at 11/09/10 8488 Author: Reynold Johnson RN Service: (none) Author Type: Registered Nurse Filed: 11/09/10 9185 Note Time: 07/23/08 1100 Status: Signed Partnership Development Manager: Reynold Johnson RN (Registered Nurse) An evaluation has been requested for this patient in the department of:Nephrology PLEASE INDICATE IF THIS IS FOR: Consult (request opinion) Reason/Indication is REQUIRED: This may include treatment if appropriate. OR Take over care (referral) Reason/Indication is REQUIRED: Please send response to (provider name / LW#):Terrence Hernandez [id number] The new Medicare guidelines for consultation services require that the intent of request be clearly documented in the requesting physician's medical record. These guidelines also apply to other health insurers. *ECODE~PNCONSULT Please verify if this is a consult or referral. Thanks Created on 23Jul2008 11:00am by REYNOLD JOHNSON On 23Jul2008 11:37am HANSA LEWIS wrote: see note re consult with nephrology, 07/06 Acknowledged by HANSA LEWIS on 11:37am RIBUTION AGENT documented in this encounter Plan of Treatment Not on filedocumented as of this encounter Visit Diagnoses Not on filedocumented in this encounter Care Teams Operating Room Specialist Relationship Specialty Start Date End Date Hansa Lewis APRN, PIPE FITTER FIRE SPRINKLER SYSTEMS PCP - General 10/22/10 11/30/12 [address] [place] [address] [place] [address] documented as of this encounter
--- OUTSIDE RECORDS SUMMARY | 2022-04-16 08:13 | XMS_ITS | Encounter Summary ---
:1960 Author Organization [facility] Address [address], [place] [address] Care Team Providers Name Role Phone Hansa Lewis APRN, CNP Primary Care Provider [phone] Encounter Details Date Type Department Care Team Description 05/28/2008 Office Visit [facility] Hansa Lewis APRN, [facility] [address] [facility] [address] [place] [address] [place] [address] [phone] (Wo rk) Social History Tobacco Use Types Packs/Day Years Used Date Smoking Tobacco: Never Assessed Sex Assigned at Date Recorded Not on file documented as of this encounter Last Filed Vital Signs Vital Sign Reading Time Taken Comments Blood Pressure 138/78 05/28/2008 2:54 PM TILTING SAW OPERATOR Pulse 56 05/28/2008 2:54 PM TILTING SAW OPERATOR Temperature - - Respiratory Rate - - Oxygen Saturation - - Inhaled Oxygen Concentration - - Weight 79.8 kg (175 lb 15.9 oz) 05/28/2008 2:54 PM TILTING SAW OPERATOR C: 79.8kg Height - - Body Mass Index 23.54 06/06/2007 8:21 AM TILTING SAW OPERATOR documented in this encounter Progress Notes Hansa Lewis APRN, CNP - 05/28/2008 12:01 AM CST Progress Notes signed by CRISTINA Steele at 06/15/08 1117 Author: CRISTINA Steele Service: (none) Author Type: (none) Filed: 11/11/10 0827 Note Time: 05/28/08 0001 Status: Signed Psychology Tech: CRISTINA Steele (Nurse Practitioner) NAME: JOSH MOSLEY MR#: [id number] ACCT: [id number] VISIT: [id number] DICTATING CLINICIAN: CRISTINA Steele CONFIRM #: [id number] LOC: 506 CLINIC PROGRESS NOTE DATE OF VISIT: 05/28/2008 SUBJECTIVE: : 1960. This is a postdated dictation from 05/28/08. Josh is in as a week followup to an appointment on 05/19. At that time, we were monitoring his blood pressure and noted that he had an elevated creatinine of 1.5. He had previously had creatinine elevation of 1.5 on lisinopril and so we had switched him to Diovan and he had normalized for a time. However, now again the creatinine is elevated slightly at 1.5 with estimated GFR of 51. His potassium normal at 4.3, as were other electrolytes. At his 05/19 visit, he was noted to have a blood pressure of 128/70. Over the last year, he has been exercising and modifying his diet and has had considerable weight loss. We decided to discontinue the Diovan. He is in today concerned because he has seen a 2-3 lb weight fluctuation since he stopped the Diovan and he is in the habit of watching his weight daily, sometimes 2 or 3 times a day. He thinks he may have had some fluid retention also. He also reports a mild headache. He denies nausea, vomiting, chest pain, shortness of breath, lightheadedness, or exercise intolerance. OTHER PAST MEDICAL HISTORY: Hyperlipidemia, fatty liver, gastroesophageal reflux disease. MEDICATIONS: Reviewed and updated in LastWord. Include Tenormin 50 mg 1 p.o. at bedtime, Diovan 80 mg 1 p.o. daily, Prilosec 20 mg daily. ADR/ALLERGIES: CODEINE. SOCIAL HISTORY: Nonsmoker. . OBJECTIVE: VS: BP: 138/78. P: 56. Wt: 176 Lb. Josh appears very well today. He is in no distress. Alert and oriented x3. SKIN: Warm, dry, and nondiaphoretic. HEENT: Eyes: Conjunctivae clear and PERRLA. NECK: Supple without lymphadenopathy. LUNGS: Clear. No wheezes, rales or rhonchi. CARDIOVASCULAR: S1, S2. Rate and rhythm regular without murmur. EXTREMITIES: No cyanosis, clubbing or edema. Pedal pulses full and symmetric. ASSESSMENT: Hypertension, controlled. PLAN: He will stay off the Diovan, but wants to increase his dose of Tenormin which we will increase to 100 mg. Advised to let me know if he feels lightheaded, dizzy, has chest pain or palpitations. We will also go ahead and do a workup for his mild renal insufficiency. He will have a UMAR, urinalysis, 24-hour urine collection for protein and creatinine clearance. We will get ultrasound of the kidneys bilaterally and repeat the creatinine. I will follow up with him when results are available and he will plan on returning to clinic to follow up with me on new antihypertensive dosing in 2 weeks. The patient in agreement. LAE:[id number] C: 06/01/08 08:00 CONFIRM #: [id number] ING SAW OPERATOR documented in this encounter Plan of Treatment Not on filedocumented as of this encounter Visit Diagnoses Not on filedocumented in this encounter Care Teams Lab Tech Relationship Specialty Start Date End Date Hansa Lewis APRN, SOCIAL SCIENCES INSTRUCTOR PCP - General 10/22/10 11/30/12 [address] [address] [address] documented as of this encounter
--- OUTSIDE RECORDS SUMMARY | 2022-04-16 08:14 | XMS_ITS | Encounter Summary ---
:1960 Author Organization [facility] Address [address] [place] [address] Care Team Providers Name Role Phone Hansa Lewis APRN, [facility] Primary Care Provider [phone] Encounter Details Date Type Department Care Team Description 06/06/2007 PN Conversion Only [place] Hansa Lewis APRN, [address] [place] [address] [facility] [address] [place] [address] (Wo rk) Social History Tobacco Use Types Packs/Day Years Used Date Smoking Tobacco: Never Assessed Sex Assigned at Date Recorded Not on file documented as of this encounter Plan of Treatment Not on filedocumented as of this encounter Procedures Procedure Name Priority Date/Time Associated Comments Diagnosis ELECTROLYTES (NA, K, Routine 06/06/2007 8:55 AM R esults for this CL, BICARB) POST CLOSER procedure are i n the results section. GLUCOSE Routine 06/06/2007 8:55 AM Results f or this POST CLOSER procedure are i n the results section. LIPID PANEL AND Routine 06/06/2007 8:55 AM Result s for this DIRECT LDL(IF NEEDED) POST CLOSER proced ure are in the results section. CREATININE / GFR Routine 06/06/2007 8:55 AM Resul ts for this POST CLOSER procedure are i n the results section. HEMOGLOBIN, BLOOD Routine 06/06/2007 8:55 AM Resu lts for this POST CLOSER procedure are i n the results section. BUN Routine 06/06/2007 8:55 AM Results f or this POST CLOSER procedure are i n the results section. documented in this encounter Results BUN (06/06/2007 8:55 AM POST CLOSER) P athologist Signature Blood Urea 22 5 - 26 HP CONVERSION Nitrogen mg/dL Specimen (Source) Anatomical Collection Method Collection Time Re ceived Time Location / / Volume Laterality 06/06/2007 8:55 AM POST CLOSER Hansa Lewis APRYARED Ma LAB_1 Performing Organization Address City/[facility]/ZIP Code Phon e Number HP CONVERSION (ABNORMAL) Creatinine / GFR (06/06/2007 8:55 AM POST CLOSER) Analysis Performed At Patho logist Time Signature Creatinine 1.5 (H) 0.4 - 1.3 HP CONVERSION Serum mg/dL Est GFR >60 >60 HP CONVERSION Am Est GFR Non-Afr 51 (L) >60 HP CONVERSION Am Comment: -French and Tkd-Ataehog-Bsslebo n reference range units: mL/min/1.73m2 Normal>60, moderate decrease 30 - 59, se alexia decrease 15 - 29, renal failure <15 mL/min/1.73 m2 Specimen (Source) Anatomical Collection Method Collection Time Re ceived Time Location / / Volume Laterality 06/06/2007 8:55 AM POST CLOSER Hansa Lewis YARED NGUYỄN LAB_1 Performing Organization Address City/[facility] Code Phon e Number HP CONVERSION (ABNORMAL) Glucose (06/06/2007 8:55 AM POST CLOSER) athologist Signature Length Of Fast 12.0 Hours HP CONVERSION Lab Glucose 135 (H) 60 - 100 HP CONVERSION mg/dL Specimen (Source) Anatomical Collection Method Collection Time Re ceived Time Location / / Volume Laterality 06/06/2007 8:55 AM POST CLOSER Hansa Lewis APRYARED Ma LAB_1 Performing Organization Address City/[facility]/ZIP Code Phon e Number HP CONVERSION Electrolytes (NA, K, CL, Bicarb) (06/06/2007 8:55 AM POST CLOSER) P athologist Signature Sodium 141 137 - 147 HP CONVERSION mEq/L Potassium 4.3 3.5 - 5.2 HP CONVERSION mEq/L Chloride 107 98 - 110 HP CONVERSION mEq/L Bicarbonate 27 23 - 33 HP CONVERSION mmol/L Specimen (Source) Anatomical Collection Method Collection Time Re ceived Time Location / / Volume Laterality 06/06/2007 8:55 AM POST CLOSER Hnasa Lewis APRN, CNP LAB_1 Performing Organization Address [facility] Code Phon e Number HP CONVERSION (ABNORMAL) Lipid Panel and Direct LDL(If Needed) (06/06/2007 8:55 AM POST CLOSER) Patholo gist Method Time Signature Length Of Fast 12.0 Hours HP CONVERSION Cholesterol/HDL 6.5 No normal HP CONVERSION Ratio Screen range Cholesterol 227 (H) <200 mg/dL HP CONVERSION HDL Cholesterol 35 (L) >40 mg/dL HP CONVERSION Triglycerides 182 (H) 0 - 149 HP CONVERSION mg/dL LDL Calculated 156 (H) 0 - 130 HP CONVERSION mg/dL Comment: Specimen (Source) Anatomical Collection Method Collection Time Re ceived Time Location / / Volume Laterality 06/06/2007 8:55 AM POST CLOSER Hansa Lewis APRN, CNP LAB_1 Performing Organization Address [facility] Phon e Number HP CONVERSION Hemoglobin, Blood (06/06/2007 8:55 AM POST CLOSER) P athologist Signature Hemoglobin 16.2 13.4 - 17.5 HP CONVERSION gm/dL Specimen (Source) Anatomical Collection Method Collection Time Re ceived Time Location / / Volume Laterality 06/06/2007 8:55 AM POST CLOSER Hansa Lewis APRN, CNP LAB_1 Performing Organization Address [facility] Phon e Number HP CONVERSION documented in this encounter Visit Diagnoses Not on filedocumented in this encounter Care Teams Hand Shaker Relationship Specialty Start Date End Date Hansa Lewis APRN, CNP PCP - General 10/22/10 11/30/12 [address] [facility] [place] [id number] documented as of this encounter
--- OUTSIDE RECORDS SUMMARY | 2022-04-16 08:14 | XMS_ITS | Encounter Summary ---
:1960 Author Organization [facility] Address [address] [place] [address] Care Team Providers Name Role Phone Hansa Lewis APRN, CNP Primary Care Provider [phone] Encounter Details Date Type Department Care Team Description 07/08/2007 Office Visit [facility] Kinsey Valver[place] [address] [place] [address] Social History Tobacco Use Types Packs/Day Years Used Date Smoking Tobacco: Never Assessed Sex Assigned at Date Recorded Not on file documented as of this encounter Progress Notes Kinsey Valverde - 07/08/2007 12:01 AM CST [facility] Nutrition Consult Nutrition Consult: Hypertension Pre-diabetes Other: Hypercholesterolemia Referred by: Hansa Lewis for diet assessment and Medical Nutrition Therapy Subjective: Bryce presents today with his to discuss healthy diet options. 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 Breakfast is either skipped or eaten out (in which case lunch is skipped). Dinner is often at home. Angely has switched to diet soda from regular since getting results of his blood work done. Admits diet is not balanced. Diet typically includes: Lunch: Soup and sandwich (dines out), diet pop Dinner: meat such as pork or roast, potatoes and vegetable of green beans, corn or peas, water Snacks: meat (salami), cheese and crackers or popcorn eaten before bed while watching TV Labs: See Patient Health Profile screen in electronic medical record Past Medical History: See Patient Health Profile screen in electronic medical record Education: Patient was educated on Calorie free beverage choices Eating away from home healthfully Healthy Diet and Meal planning Lean protein sources Mindful eating Assessment/Evaluation: Impaired glucose tolerance Patient verbalizes understanding of the education Patient appears highly motivated to change Current dietary pattern is heavy on grains and protein. Discussed FGP in detail and importance of getting balance in diet. Increasing fiber also discussed to assist with cholesterol and blood sugar managment. Meal Planning booklet provided. Counseling/Plan: Written materials and phone contact information provided Patient goals for behavior change: 1. Two frozen or fresh vegetables per day 2. Three servings of fruit per day (no more than 4); limit juice to one 4 ounce serving per day 3. Three meals per day. 4. 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
--- OUTSIDE RECORDS SUMMARY | 2022-04-16 08:14 | XMS_ITS | Encounter Summary ---
:1960 [facility] Address [address] [address] Care Team Providers Name Role Phone Unassigned, Provider Primary Care Provider Unavailable Encounter Details Date Type Department Care Team Description 08/17/2003 Hospital Encounter [facility] Lemuel Tobar MD [address] [place] [address] [address] Mo MD [address] [place] [address] [place] [address] Social History Tobacco Use Types Packs/Day Years Used Date Smoking Tobacco: Never Assessed Sex Assigned at Date Recorded Not on file documented as of this encounter Procedure Notes Lemuel Ryan MD - 08/17/2003 12:01 AM CST OR Surgeon signed by Lemuel Ryan MD at 08/22/03 0834 Author: Lemuel Ryan MD Service: (none) Author Type: Physician Filed: 11/09/10 1815 Note Time: 08/17/03 0946 Status: Signed [employer] Referee: Lemuel Ryan MD (Physician) NAME: JOSH MOSLEY MR: [id number] ACCT: [id number] AUTHENTICATING CLINICIAN: LEMUEL RYAN MD JOB: [id number] OPERATIVE REPORT DATE OF OPERATION: 08/17/2003 INDICATIONS FOR PROCEDURE: PREOPERATIVE DIAGNOSIS: Left leg venous insufficiency with varicose veins. POSTOPERATIVE DIAGNOSIS: Left leg venous insufficiency with varicose veins. PROCEDURE PERFORMED: 1. Left greater saphenous vein stripping, knee to ankle. 2. Left secondary varicose vein dissection. SURGEON: Lemuel Ryan MD. ANESTHESIA: Spinal. FINDINGS: DESCRIPTION OF OPERATION: Patient brought to the operating room, placed in a supine position. Patient underwent a spinal anesthetic. The left leg was prepped with Duraprep and draped in a sterile fashion. Incision was made at the left knee. Found by Doppler, the greater saphenous vein. The greater saphenous vein was then encircled, ligated proximally, and then a venotomy was made as stripper cables advanced from the knee down to the ankle and brought up through a second counter incision. This was ligated distally. The vein was then attached to the stripper cable, and the stripper cable was removed in its entirety from the knee to the ankle. Direct pressure was applied for hemostasis. Next, attention was turned to the secondary varicosities. These underwent a sequential stab incisions with carlos hooks and Hemostats. There were a couple large perforating veins on the anterolateral aspect of the leg, and these were encircled and ligated at the fascial level. Benzoin and Steri-Strips were used to close some of the stab incisions. Knee and ankle incision were closed with Monocryl and the other larger stab incisions were closed with 5-0 nylon. Dry sterile dressings were applied, and the patient returned to the recovery room in stable condition. 

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
--- OUTSIDE RECORDS SUMMARY | 2022-04-16 08:14 | XMS_ITS | Encounter Summary ---
:1960 Author Organization [facility] Address [address] [address] Care Team Providers Name Role Phone Hansa Lewis APRN, CNP Primary Care Provider [phone] Encounter Details Date Type Department Care Team Description 06/07/2004 PN Conversion Only [place] [facility] N Hansa Lewis APRN, [address] [place] [address] [address] [facility] [address] [facility] [place] [address] (Wo rk) Social History Tobacco Use Types Packs/Day Years Used Date Smoking Tobacco: Never Assessed Sex Assigned at Date Recorded Not on file documented as of this encounter Plan of Treatment Not on filedocumented as of this encounter Procedures Procedure Name Priority Date/Time Associated Comments Diagnosis ELECTROLYTES (NA, K, Routine 06/07/2004 4:35 PM R esults for this CL, BICARB) SAWMILL EQUIPMENT OPERATOR procedure are i n the results section. CREATININE / GFR Routine 06/07/2004 4:35 PM Resul ts for this SAWMILL EQUIPMENT OPERATOR procedure are i n the results section. BUN Routine 06/07/2004 4:35 PM Results f or this SAWMILL EQUIPMENT OPERATOR procedure are i n the results section. documented in this encounter Results BUN (06/07/2004 4:35 PM SAWMILL EQUIPMENT OPERATOR) P athologist Signature Blood Urea 24 5 - 26 HP CONVERSION Nitrogen mg/dL Specimen (Source) Anatomical Collection Method Collection Time Re ceived Time Location / / Volume Laterality 06/07/2004 4:35 PM SAWMILL EQUIPMENT OPERATOR Hansa Lewis APRN ASSISTANT CROSS COUNTRY COACH LAB_1 Performing Organization Address City/[facility]/ZIP Code Phon e Number HP CONVERSION Creatinine / GFR (06/07/2004 4:35 PM SAWMILL EQUIPMENT OPERATOR) P athologist Signature Creatinine 1.5 0.5 - 1.5 HP CONVERSION Serum mg/dL Specimen (Source) Anatomical Collection Method Collection Time Re ceived Time Location / / Volume Laterality 06/07/2004 4:35 PM SAWMILL EQUIPMENT OPERATOR Hansa Joshua NGUYỄN CNP LAB_1 Performing Organization Address City/[facility] Code Phon e Number HP CONVERSION Electrolytes (NA, K, CL, Bicarb) (06/07/2004 4:35 PM SAWMILL EQUIPMENT OPERATOR) P athologist Signature Sodium 138 137 - 147 HP CONVERSION meq/L Potassium 4.3 3.5 - 5.2 HP CONVERSION meq/L Chloride 102 98 - 110 HP CONVERSION meq/L Bicarbonate 27 23 - 33 HP CONVERSION mmol/L Specimen (Source) Anatomical Collection Method Collection Time Re ceived Time Location / / Volume Laterality 06/07/2004 4:35 PM SAWMILL EQUIPMENT OPERATOR Hansa Joshua NGUYỄN CNP LAB_1 Performing Organization Address City/[facility]/ZIP Code Phon e Number HP CONVERSION documented in this encounter Visit Diagnoses Not on filedocumented in this encounter Care Teams Blacksmith Helper Relationship Specialty Start Date End Date Hansa Lewis APRN, CNP PCP - General 10/22/10 11/30/12 [address] [place] [address] documented as of this encounter
--- OUTSIDE RECORDS SUMMARY | 2022-04-16 08:14 | XMS_ITS | Encounter Summary ---
:1960 [facility] Address [address] [place] [address] Care Team Providers Name Role Phone Hansa Lewis APRN, CNP Primary Care Provider [phone] Encounter Details Date Type Department Care Team Description 06/05/2004 PN Conversion Only [place] [address] [address] [place] [address] Social History Tobacco Use Types Packs/Day Years Used Date Smoking Tobacco: Never Assessed Sex Assigned at Date Recorded Not on file documented as of this encounter Plan of Treatment Not on filedocumented as of this encounter Visit Diagnoses Not on filedocumented in this encounter Care Teams Fixture Maker Relationship Specialty Start Date End Date Hansa Lewis APRN, CNP PCP - General 10/22/10 11/30/12 [address] [address] [place] [id number] documented as of this encounter
--- OUTSIDE RECORDS SUMMARY | 2022-04-16 08:14 | XMS_ITS | Encounter Summary ---
:1960 Author Organization [facility] Address [address] [address] Care Team Providers Name Role Phone Unassigned, Provider Primary Care Provider Unavailable Encounter Details Date Type Department Care Team Description 08/04/2003 Hospital Encounter [facility] CONVERSION Connor Pa maria m Foster MD [address] [place] [address] (Wo rk) Social History Tobacco Use Types Packs/Day Years Used Date Smoking Tobacco: Never Assessed Sex Assigned at Date Recorded Not on file documented as of this encounter Plan of Treatment Not on filedocumented as of this encounter Procedures Procedure Name Priority Date/Time Associated Diagnosis Comme nts [facility] LOWER Routine 08/04/2003 3:00 PM Results f or this EXTREMITY LT VENOUS MOTORCYCLE ASSEMBLER procedur e are in DUPLEX DVT the results section. documented in this encounter Results VL US Lower Extremity Lt Venous Duplex DVT (08/04/2003 3:00 PM MOTORCYCLE ASSEMBLER) Anatomical Region Laterality Modality Vascular, Lower Extremity, Leg Other Specimen (Source) Anatomical Location Collection Method / Collectio n Time Received Time / Laterality Volume Narrative 08/04/2003 3:00 PM MOTORCYCLE ASSEMBLER RVT: ??Beatriz Deluna M.D. Reading Study: ??Ruel Martins M.D. Indication for Exam: ? Venous insufficiency - symptomati c varicose veins/swelling. Previous Venous Exam: ??No Previous Angio/Surgery: ??No Impression: Right: - The SFJ is competent. - The GSV is present and competent from the SFJ to zone 5.5. - The GSV is absent from zone 5.5 to th e ankle. - A large incompetent tributory drains into the GSV at zone 5.5. ?? This tributory runs anteriorly towar ds the ankle. - The SPJ and LSV are both competent. - The deep venous system is competent. - There are no inompetent perforators. [facility] is an accred [facility] lab with the ICAVL. Procedure Note Ruel Martins MD - 09/22/2016For matting of this note might be different from the original. RVT: Beatriz Deluna M.D. Reading Study: Ruel Martins M.D. Indication for Exam: Venous insufficiency - symptomatic vari cose veins/swelling. Previous Venous Exam: No Previous Angio/Surgery: No Impression: Right: - The SFJ is competent. - The GSV is present and competent from the SFJ to zone 5.5. - The GSV is absent from zone 5.5 to th e ankle. - A large incompetent tributory drains into the GSV at zone 5.5. This tributory runs anteriorly towards the ankle. - The SPJ and LSV are both competent. - The deep venous system is competent. - There are no inompetent perforators. [facility] is an accred [facility] with the ICAVL. Lemuel Ryan MD [facility] documented in this encounter Visit Diagnoses Not on filedocumented in this encounter Care Teams Billet Heater Relationship Specialty Start Date End Date Unassigned, Provider PCP - General 06/29/00 10/21/[address] [place] [id number] documented as of this encounter
--- OUTSIDE RECORDS SUMMARY | 2022-04-16 08:14 | XMS_ITS | Encounter Summary ---
:1960 Author Organization [facility] Address [address] [address] Care Team Providers Name Role Phone Hansa Lewis APRN, CNP Primary Care Provider [phone] Encounter Details Date Type Department Care Team Description 06/06/2007 Office Visit [place] [facility] Hansa Lewis APRN, [facility] [address] [facility] [address] [place] [address] [place] [address] [phone] (Wo rk) Social History Tobacco Use Types Packs/Day Years Used Date Smoking Tobacco: Never Assessed Sex Assigned at Date Recorded Not on file documented as of this encounter Last Filed Vital Signs Vital Sign Reading Time Taken Comments Blood Pressure 120/80 06/06/2007 8:21 AM WALL WASHER Pulse 72 06/06/2007 8:21 AM WALL WASHER Temperature - - Respiratory Rate - - Oxygen Saturation - - Inhaled Oxygen Concentration - - Weight 91.2 kg (200 lb 15.9 oz) 06/06/2007 8:21 AM C: 9 1.2kg WALL WASHER Height 184.2 cm (6' 0.5) 06/06/2007 8:21 AM C: 184.2cm WALL WASHER Body Mass Index 26.88 06/06/2007 8:21 AM WALL WASHER documented in this encounter Progress Notes Hansa Lewis APRN, YARED - 06/06/2007 12:01 AM CST Progress Notes signed by CRISTINA Steele at 06/30/07 1121 Author: CRISTINA Steele Service: (none) Author Type: (none) Filed: 11/10/10 6193 Note Time: 06/06/07 0001 Status: Signed Counter Intelligence Agent: CRISTINA Steele (Nurse Practitioner) NAME: JOSH MOSLEY MR#: [id number] ACCT: [id number] VISIT: [id number] DICTATING CLINICIAN: CRISTINA Steele JOB: [id number] LOC: 506 CLINIC PROGRESS NOTE DATE OF VISIT: 06/06/2007 SUBJECTIVE: : 1960. A 47-year-old gentleman in clinic today for routine health care. PAST MEDICAL HISTORY: Hypertension and reflux. PAST SURGICAL HISTORY: Varicose vein ligation right leg 2004. FAMILY HISTORY: No diabetes. His mother had coronary artery disease. Two sisters, a brother, and mother have hypertension. No hypercholesterolemia. No family history of cancer. His father of pulmonary fibrosis. He was a nonsmoker but worked in asbestos type environment. SOCIAL HISTORY: . Four children, youngest is age 10. Has a 15-year-old daughter at home as well and 2 kids in college. 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 REVIEW OF SYSTEMS: Constitutional: Says he feels very well these days. Endocrine: No excessive hunger, thirst, urination, or fatigue. ENT: No sinus congestion or allergies. Cardiovascular: No chest pain or palpitations. Pulmonary: No cough, wheeze, short of breath. Gastrointestinal: No change in bowel habits to caliber, consistency, or color of stools. Genitourinary: Does not get up at night to void. Has no erectile dysfunction. No difficulty starting or maintaining his stream, or dribbling. Lymphatics: No enlarged or tender lymph nodes. Psych: Some anxiety related to child raising and the stress of the finances in the family, but he laughs about it and says that this occurs daily but not consistently. Neuro: Occasional stress headaches. He just relaxes, he says it does not require any medication. HEALTH HABITS: He exercises routinely 3 times a week, either running 4 miles at the gym or biking. He rarely drinks alcohol. He always wears seat belts. He is in a safe relationship. Would like a flu vaccine today. MEDICATIONS: Prinivil 20 mg 1 p.o. q. day, atenolol 50 mg 1 p.o. q. day, Prilosec 20 mg one p.o. q. day. ADR/ALLERGIES: CODEINE. OBJECTIVE: VS: BP: 120/80. P: 72. Ht: 6 ft 1/2 in. Wt: 201 lb. BMI: 26.8. Well-developed, well-nourished, pleasant gentleman in no obvious distress. Alert, oriented, upbeat. SKIN: Warm, dry, nondiaphoretic. HEENT: Eyes: Conjunctivae clear and PERRLA. Ears: TMs pearly dominguez. Nasal passages non-hyperemic. Oropharynx without erythema, edema, or tonsillar enlargement. NECK: Supple without lymphadenopathy. LUNGS: Clear. No wheezes, rales, or rhonchi. CARDIOVASCULAR: S1, S2. Rate and rhythm regular without murmur. ABDOMEN: Active bowel sounds. Soft and nontender. No hepatosplenomegaly. External genitalia without lesions. Circumcised male. Descended testicles bilaterally. No nodularity or tenderness. RECTAL: Normal sphincter tone. Non-boggy, nontender, symmetric, non-nodular prostate palpated. EXTREMITIES: No cyanosis, clubbing, or edema. Venous varicosities right leg apparent. No induration, no ulceration, no erythema. ASSESSMENT: 1. Routine health maintenance exam. 2. Hypertension, controlled. 3. Gastroesophageal reflux disease, controlled. 4. Immunization update. PLAN: He will have a cholesterol fractionation, fasting glucose, BUN, creatinine, electrolytes, and a hemoglobin. He is given a flu vaccine today. He is given refills of his medications. He is to continue with healthy lifestyle and follow up on a p.r.n. basis with annual physicals. LAE:[id number] C: 06/07/07 09:14 DOCUMENT: [id number] WASHER documented in this encounter Plan of Treatment Not on filedocumented as of this encounter Visit Diagnoses Not on filedocumented in this encounter Care Teams Nurse Manager Relationship Specialty Start Date End Date Hansa Lewis APRN, BANK ACCOUNTANT PCP - General 10/22/10 11/30/[address] [place] [address] documented as of this encounter
--- OUTSIDE RECORDS SUMMARY | 2022-04-16 08:14 | XMS_ITS | Encounter Summary ---
:1960 Author Organization [facility] Address [address] [address] Care Team Providers Name Role Phone Hansa Lewis APRN, CNP Primary Care Provider [phone] Reason for Visit Reason Comments Other Encounter Details Date Type Department Care Team Description 06/23/2007 Telephone [facility], Message Other [address] [place], [place] [address] Social History Tobacco Use Types Packs/Day Years Used Date Smoking Tobacco: Never Assessed Sex Assigned at Date Recorded Not on file documented as of this encounter Progress Notes Center, Message - 06/23/2007 8:13 AM CST Phone Note filed by [employer] at 11/08/10933 Author: [employer] Service: (none) Author Type: (none) Filed: 11/08/10933 Note Time: 06/23/07812 Status: Signed Senior Manager Mergers & Acquisitions: [employer] Prescription Refill Please provide enough refills to last until patient's next visit. Comment:- Pharmacy Seq #:-[phone] Pharmacy Name:-[facility] Street or City:-[place] Clinician Name:-[facility] Name/Strength:-Lisinopril 20mg tabs. Sig: Dose/Route/Freq:-Take 1 tab daily. Quantity & Last Fill:-05/21/07 Created on [id number] 8:13am by BRIGIDA LEE J On [id number] 9:31am REID MACIAS wrote: Renewed medication per medication refill protocol. NG MANAGER documented in this encounter Plan of Treatment Not on filedocumented as of this encounter Visit Diagnoses Not on filedocumented in this encounter Care Teams Hired Hand Relationship Specialty Start Date End Date Hansa Lewis, DELMA, MANAGER WASTEWATER PCP - General 10/22/10 11/30/12 [address] [place] [address] documented as of this encounter
--- OUTSIDE RECORDS SUMMARY | 2022-04-16 08:14 | XMS_ITS | Encounter Summary ---
:1960 Author Organization [facility] Address [address] [place] [address] Care Team Providers Name Role Phone Hansa Lewis APRN, [facility] Primary Care Provider [phone] Encounter Details Date Type Department Care Team Description 06/18/2006 PN Conversion Only [place] [facility] Hansa Lewis APRN, [address] [place] [address] [facility] [address] [place] [address] (Wo rk) Social History Tobacco Use Types Packs/Day Years Used Date Smoking Tobacco: Never Assessed Sex Assigned at Date Recorded Not on file documented as of this encounter Plan of Treatment Not on filedocumented as of this encounter Procedures Procedure Name Priority Date/Time Associated Comments Diagnosis ELECTROLYTES (NA, K, Routine 06/18/2006 4:47 PM R esults for this CL, BICARB) THERAPEUTIC RECREATION SPECIALIST procedure are i n the results section. LIPID PANEL AND Routine 06/18/2006 4:47 PM Result s for this DIRECT LDL(IF NEEDED) THERAPEUTIC RECREATION SPECIALIST proced ure are in the results section. CREATININE / GFR Routine 06/18/2006 4:47 PM Resul ts for this THERAPEUTIC RECREATION SPECIALIST procedure are i n the results section. ALT (SGPT) Routine 06/18/2006 4:47 PM Results f or this THERAPEUTIC RECREATION SPECIALIST procedure are i n the results section. CK, TOTAL Routine 06/18/2006 4:47 PM Results f or this THERAPEUTIC RECREATION SPECIALIST procedure are i n the results section. BUN Routine 06/18/2006 4:47 PM Results f or this THERAPEUTIC RECREATION SPECIALIST procedure are i n the results section. documented in this encounter Results (ABNORMAL) ALT (SGPT) (06/18/2006 4:47 PM THERAPEUTIC RECREATION SPECIALIST) [facility] gist Method Time Signature Alanine 85 (H) 0 - 65 HP CONVERSION Aminotransferase U/L Specimen (Source) Anatomical Collection Method Collection Time Re ceived Time Location / / Volume Laterality 06/18/2006 4:47 PM THERAPEUTIC RECREATION SPECIALIST Hansa Lewis APRYARED Ma LAB_1 Performing Organization Address City/[facility] Code Phon e Number HP CONVERSION BUN (06/18/2006 4:47 PM THERAPEUTIC RECREATION SPECIALIST) athologist Signature Blood Urea 17 5 - 26 HP CONVERSION Nitrogen mg/dL Specimen (Source) Anatomical Collection Method Collection Time Re ceived Time Location / / Volume Laterality 06/18/2006 4:47 PM THERAPEUTIC RECREATION SPECIALIST Hansa Lewis APRYARED Ma LAB_1 Performing Organization Address [facility] Phon e Number HP CONVERSION CK, Total (06/18/2006 4:47 PM THERAPEUTIC RECREATION SPECIALIST) athologist Signature Creatine Kinase 21 0 - 225 HP CONVERSION U/L Specimen (Source) Anatomical Collection Method Collection Time Re ceived Time Location / / Volume Laterality 06/18/2006 4:47 PM THERAPEUTIC RECREATION SPECIALIST Hansa Lewis APRNYARED LAB_1 Performing Organization Address [facility] Phon e Number HP CONVERSION Creatinine / GFR (06/18/2006 4:47 PM THERAPEUTIC RECREATION SPECIALIST) athologist Signature Creatinine 1.4 0.5 - 1.5 HP CONVERSION Serum mg/dL Specimen (Source) Anatomical Collection Method Collection Time Re ceived Time Location / / Volume Laterality 06/18/2006 4:47 PM THERAPEUTIC RECREATION SPECIALIST Hansa Lewis APRNYARED LAB_1 Performing Organization Address City/[facility] Phon e Number HP CONVERSION Electrolytes (NA, K, CL, Bicarb) (06/18/2006 4:47 PM THERAPEUTIC RECREATION SPECIALIST) athologist Signature Sodium 140 137 - 147 HP CONVERSION meq/L Potassium 4.0 3.5 - 5.2 HP CONVERSION meq/L Chloride 105 98 - 110 HP CONVERSION meq/L Bicarbonate 26 23 - 33 HP CONVERSION mmol/L Specimen (Source) Anatomical Collection Method Collection Time Re ceived Time Location / / Volume Laterality 06/18/2006 4:47 PM THERAPEUTIC RECREATION SPECIALIST Hansa Lewis APRN, CNP LAB_1 Performing Organization Address City/State/ZIP Code Phon e Number HP CONVERSION (ABNORMAL) Lipid Panel and Direct LDL(If Needed) (06/18/2006 4:47 PM THERAPEUTIC RECREATION SPECIALIST) [facility] Method Time Signature Cholesterol/HDL 5.1 No normal HP CONVERSION Ratio Screen range Cholesterol 138 <200 mg/dL HP CONVERSION HDL Cholesterol 27 (L) 40 - 60 HP CONVERSION mg/dL Triglycerides 104 0 - 149 HP CONVERSION mg/dL LDL Calculated 90 0 - 130 HP CONVERSION mg/dL Comment: Specimen (Source) Anatomical Collection Method Collection Time Re ceived Time Location / / Volume Laterality 06/18/2006 4:47 PM THERAPEUTIC RECREATION SPECIALIST Hansa Lewis APRN, CNP LAB_1 Performing Organization Address City/[facility] Code Phon e Number HP CONVERSION documented in this encounter Visit Diagnoses Not on filedocumented in this encounter Care Teams Carboy Filler Relationship Specialty Start Date End Date Hansa Lewis APRN, CNP PCP - General 10/22/10 11/30/12 [address] [place] [place] [address] documented as of this encounter
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
--- OUTSIDE RECORDS SUMMARY | 2022-04-16 08:14 | XMS_ITS | Encounter Summary ---
:1960 Author Organization [facility] Address [address] [address] Care Team Providers Name Role Phone Hansa Lewis APRN, CNP Primary Care Provider [phone] Reason for Visit Reason Comments Other Encounter Details Date Type Department Care Team Description 06/27/2007 Telephone [facility], Message Other [address] [place] [address] Social History Tobacco Use Types Packs/Day Years Used Date Smoking Tobacco: Never Assessed Sex Assigned at Date Recorded Not on file documented as of this encounter Progress Notes Kari Jurado - 06/27/2007 11:33 AM CST Phone Note filed by Kari Jurado MA at 11/08/10 1000 Author: Kari Jurado MA Service: (none) Author Type: (none) Filed: 11/08/10 1000 Note Time: 06/27/07 1133 Status: Signed Regulatory And Compliance Technician: Kari Jurado MA (E Tailer) US RUQ includes Gallbaldder,liver,pancreas,Rt renal and CBD results are available for viewing in LW. Created on 27Jun2007 11:33am by KARI JURADO On 27Jun2007 5:15pm HANSA LEWIS wrote: lmwith to call me 06/30 for results Acknowledged by HANSA LEWIS on 5:15pm On 30Jun2007 10:09am VERONICA TAVARES wrote: Mr Mosley returning Hansa's call ...he can be reached on his cell phone...[phone]--- thank you. Acknowledged by AVTAR FABIAN on 10:19am On 30Jun2007 11:17am HANSA LEWIS wrote: Consult dietitian re elevated LDL and glucose 118 IFG; recheck chol and glucose in 3 months Dc prinivil (cr 1.5) start diovan 80 mg, rechedk Cr in 2-3 weeks and BP in 4 weeks. RUQ US for elevated LFTs shows fatty liver infiltrate Acknowledged by HANSA LEWIS on 11:17am On 30Jun2007 11:20am HANSA LEWIS wrote: see phone note 06/30 On 30Jun2007 12:04pm AVTAR FABIAN wrote: pt notified lab orders sent to pt. with lab letter. Rx faxed to [facility] in [place] per pt. Acknowledged by AVTAR FABIAN on 12:04pm EMS CHECKOUT MECHANIC documented in this encounter Plan of Treatment Not on filedocumented as of this encounter Visit Diagnoses Not on filedocumented in this encounter Care Teams Muleser Relationship Specialty Start Date End Date Hansa Lewis, DELMA, FLOOR INSTALLATION MECHANIC PCP - General 10/22/10 11/30/12 [address] [place] [place] [address] documented as of this encounter
--- OUTSIDE RECORDS SUMMARY | 2022-04-16 08:14 | XMS_ITS | Encounter Summary ---
:1960 Author [email or web address] Address [address] [place] [address] Care Team Providers Name Role Phone Hansa Lewis APRN, [facility] Primary Care Provider [phone] Encounter Details Date Type Department Care Team Description 08/12/2003 PN Conversion Only [place] Hansa Lewis APRN, [address] [place] [address] [facility] [address] [place] [address] (Wo rk) Social History Tobacco Use Types Packs/Day Years Used Date Smoking Tobacco: Never Assessed Sex Assigned at Date Recorded Not on file documented as of this encounter Plan of Treatment Not on filedocumented as of this encounter Procedures Procedure Name Priority Date/Time Associated Comments Diagnosis ELECTROLYTES (NA, K, Routine 08/12/2003 4:22 PM R esults for this CL, BICARB) SOFTWARE TEAM LEADER procedure are i n the results section. CREATININE / GFR Routine 08/12/2003 4:22 PM Resul ts for this SOFTWARE TEAM LEADER procedure are i n the results section. COMPLETE BLOOD Routine 08/12/2003 4:22 PM Results for this COUNT-W/DIFF SOFTWARE TEAM LEADER procedure are i n the results section. BUN Routine 08/12/2003 4:22 PM Results f or this SOFTWARE TEAM LEADER procedure are i n the results section. documented in this encounter Results Complete Blood Count-W/Diff (08/12/2003 4:22 PM SOFTWARE TEAM LEADER) [facility] Method Time Signature White Blood Cell 8.9 3.8 - 11.0 [place] N Count K/cmm Red Blood Cell 5.06 4.20 - HP CONVERSION Count 5.90 m/cmm Hemoglobin 15.3 13.4 - HP CONVERSION 17.5 gm/dL Hematocrit 45.4 39.0 - HP CONVERSION 51.0 % Mean Corpuscular 89.7 80.0 - HP CONVERSION Volume 100.0 fl Mean Corpuscular 30.3 27.0 - HP CONVERSION Hemoglobin 34.0 pg Mean Corpuscular 33.8 32.0 - HP CONVERSION Hemoglobin Conc 36.5 gm/dL [place] RDW 12.4 11.0 - HP CONVERSION 15.0 % Platelet Count 352 140 - 450 HP CONVERSION k/cmm Differential Auto-Dif No normal HP CONVERSION Verify range Neutrophils 6.1 2.0 - 7.5 HP CONVERSION Absolute Count K/cmm Neutrophil 67.2 50.0 - HP CONVERSION 75.0 % Lymphocyte % 24.1 20.0 - HP CONVERSION 40.0 % Monocyte 7.1 5.0 - 14.0 HP CONVERSION % Eosinophil 1.5 0.0 - 6.0 HP CONVERSION % Basophil % 0.1 0.0 - 2.0 HP CONVERSION % Specimen (Source) Anatomical Collection Method Collection Time Re ceived Time Location / / Volume Laterality 08/12/2003 4:22 PM SOFTWARE TEAM LEADER Hansa Lewis APRN, CNP LAB_1 Performing Organization Address City/State/ZIP Code Phon e Number HP CONVERSION Electrolytes (NA, K, CL, Bicarb) (08/12/2003 4:22 PM SOFTWARE TEAM LEADER) P athologist Signature Sodium 138 137 - 147 HP CONVERSION meq/L Potassium 4.4 3.5 - 5.2 HP CONVERSION meq/L Chloride 104 98 - 110 HP CONVERSION meq/L Bicarbonate 25 23 - 33 HP CONVERSION mmol/L Specimen (Source) Anatomical Collection Method Collection Time Re ceived Time Location / / Volume Laterality 08/12/2003 4:22 PM SOFTWARE TEAM LEADER Hansa Joshua NGUYỄN CNP LAB_1 Performing Organization Address City/State/ZIP Code Phon e Number HP CONVERSION BUN (08/12/2003 4:22 PM SOFTWARE TEAM LEADER) P athologist Signature Blood Urea 18 5 - 26 HP CONVERSION Nitrogen mg/dL Specimen (Source) Anatomical Collection Method Collection Time Re ceived Time Location / / Volume Laterality 08/12/2003 4:22 PM SOFTWARE TEAM LEADER Hansa Lewis APRN, CNP LAB_1 Performing Organization Address City/State/ZIP Code Phon e Number HP CONVERSION Creatinine / GFR (08/12/2003 4:22 PM SOFTWARE TEAM LEADER) P athologist Signature Creatinine 1.2 0.5 - 1.5 HP CONVERSION Serum mg/dL Specimen (Source) Anatomical Collection Method Collection Time Re ceived Time Location / / Volume Laterality 08/12/2003 4:22 PM SOFTWARE TEAM LEADER Hansa Lewis APRN, CNP LAB_1 Performing Organization Address City/[facility] Phon e Number HP CONVERSION documented in this encounter Visit Diagnoses Not on filedocumented in this encounter Care Teams Advisory Services Associate Relationship Specialty Start Date End Date Hansa Lewis APRN, CNP PCP - General 10/22/10 11/30/[address] [place] [address] documented as of this encounter
--- OUTSIDE RECORDS SUMMARY | 2022-04-16 08:14 | XMS_ITS | Encounter Summary ---
:1960 [facility] Address [address] [address] Care Team Providers Name Role Phone Hansa Lewis YARED NGUYỄN Primary Care Provider [phone] Reason for Visit Reason Comments Other Encounter Details Date Type Department Care Team Description 08/28/2004 Telephone [facility] Silvia Anders Other [address] [place] [address] Social History Tobacco Use Types Packs/Day Years Used Date Smoking Tobacco: Never Assessed Sex Assigned at Date Recorded Not on file documented as of this encounter Progress Notes Silvia Anders - 08/28/2004 1:32 PM CST Phone Note filed by Silvia Anders RN at 11/06/10 5414 Author: Silvia Anders RN Service: (none) Author Type: Registered Nurse Filed: 11/06/10 4596 Note Time: 08/28/04 1332 Status: Signed Computer Numerical Control Grinder: Silvia Anders RN (Registered Nurse) Bryce had a cold and a fever over the weekend. The fever resolved and now he has dizziness when he gets up and headache and stiff neck.He is alert. Appt. made in [place] this afternoon with Jose Mata. His will drive him here. Created on 28Aug2004 1:32pm by SILVIA ANDERS documented in this encounter Plan of Treatment Not on filedocumented as of this encounter Visit Diagnoses Not on filedocumented in this encounter Care Teams Retail Business Development Manager Relationship Specialty Start Date End Date Hansa Lewis APRN, BOOKKEEPERS SUPERVISOR PCP - General 10/22/10 11/30/12 [address] [address] documented as of this encounter
--- OUTSIDE RECORDS SUMMARY | 2022-04-16 08:14 | XMS_ITS | Encounter Summary ---
:1960 Author Organization [facility] Address [address] [address] Care Team Providers Name Role Phone Hansa Lewis YARED NGUYỄN Primary Care Provider [phone] Encounter Details Date Type Department Care Team Description 06/07/2006 PN Conversion Only [place] [address] [address] [place] [address] Social History Tobacco Use Types Packs/Day Years Used Date Smoking Tobacco: Never Assessed Sex Assigned at Date Recorded Not on file documented as of this encounter Progress Notes Philip Nelson MD - 08/18/2007 12:01 AM CST Progress Notes signed by Philip Nelson MD at 09/04/07 0924 Author: Philip Nelson MD Service: (none) Author Type: Physician Filed: 11/11/10 0028 Note Time: 08/18/07 0001 Status: Signed Customer Support Associate: Philip Nelson MD (Physician) NAME: JOSH MOSLEY MR#: [id number] ACCT: VISIT: DICTATING CLINICIAN: Philip Nelson MD JOB: [id number] LOC: 3533 CLINIC NON VISIT NOTE DATE: August 18, 2007 No show for GI consultation today. Our office will contact the patient to attempt to reschedule appointment. WILLIAMS:[id number] C: 08/19/07 08:43 DOCUMENT: [id number] ELIFT OPERATOR documented in this encounter Plan of Treatment Not on filedocumented as of this encounter Visit Diagnoses Not on filedocumented in this encounter Care Teams Gardener Florist Relationship Specialty Start Date End Date Hansa Lewis APRN, SECURITY OFFICERS AND GUARDS PCP - General 10/22/10 11/30/12 [address] [place] [address] documented as of this encounter
--- OUTSIDE RECORDS SUMMARY | 2022-04-16 08:14 | XMS_ITS | Encounter Summary ---
:1960 Author [facility] Address [address] [address] Care Team Providers Name Role Phone Hansa Lewis APRN, [facility] Primary Care Provider [phone] Encounter Details Date Type Department Care Team Description 04/09/2003 PN Conversion Only [place] Hansa Lewis APRN, [address] [place] [address] [facility] [address] [place] [address] (Wo rk) Social History Tobacco Use Types Packs/Day Years Used Date Smoking Tobacco: Never Assessed Sex Assigned at Date Recorded Not on file documented as of this encounter Plan of Treatment Not on filedocumented as of this encounter Procedures Procedure Name Priority Date/Time Associated Comments Diagnosis ELECTROLYTES (NA, K, Routine 04/09/2003 4:22 PM R esults for this CL, BICARB) CDT procedure are i n the results section. CREATININE / GFR Routine 04/09/2003 4:22 PM Resul ts for this CDT procedure are i n the results section. BUN Routine 04/09/2003 4:22 PM Results f or this CDT procedure are i n the results section. documented in this encounter Results Electrolytes (NA, K, CL, Bicarb) (04/09/2003 4:22 PM CDT) P athologist Signature Sodium 139 137 - 147 HP CONVERSION meq/L Potassium 4.2 3.5 - 5.2 HP CONVERSION meq/L Chloride 102 98 - 110 HP CONVERSION meq/L Bicarbonate 24 23 - 33 HP CONVERSION mmol/L Specimen (Source) Anatomical Collection Method Collection Time Re ceived Time Location / / Volume Laterality 04/09/2003 4:22 PM CDT Hansa Joshua NGUYỄN CNP LAB_1 Performing Organization Address [facility] Code Phon e Number HP CONVERSION BUN (04/09/2003 4:22 PM CDT) athologist Signature Blood Urea 17 5 - 26 HP CONVERSION Nitrogen mg/dL Specimen (Source) Anatomical Collection Method Collection Time Re ceived Time Location / / Volume Laterality 04/09/2003 4:22 PM CDT Hansa Lewis APRN, CNP LAB_1 Performing Organization Address [facility] Code Phon e Number HP CONVERSION Creatinine / GFR (04/09/2003 4:22 PM CDT) athologist Signature Creatinine 1.5 0.5 - 1.5 HP CONVERSION Serum mg/dL Specimen (Source) Anatomical Collection Method Collection Time Re ceived Time Location / / Volume Laterality 04/09/2003 4:22 PM CDT Hansa Joshua NGUYỄN CNP LAB_1 Performing Organization Address City/[facility]/ZIP Code Phon e Number HP CONVERSION documented in this encounter Visit Diagnoses Not on filedocumented in this encounter Care Teams Manager Online Relationship Specialty Start Date End Date Hansa Lewis APRN, CNP PCP - General 10/22/10 11/30/12 [address] [place] [address] documented as of this encounter
--- OUTSIDE RECORDS SUMMARY | 2022-04-16 08:14 | XMS_ITS | Encounter Summary ---
:1960 Author Organization [facility] Address [address] [place] [address] Care Team Providers Name Role Phone Unassigned, Provider Primary Care Provider Unavailable Encounter Details Date Type Department Care Team Description 11/16/2002 Hospital Encounter [facility] Beto Lewis ie, REGIONAL INTERMODAL TRUCK DRIVER, Echocardiogram PLATFORM LOADER [address] [address] [place] [address] [phone] Social History Tobacco Use Types Packs/Day Years Used Date Smoking Tobacco: Never Assessed Sex Assigned at Date Recorded Not on file documented as of this encounter Plan of Treatment Not on filedocumented as of this encounter Procedures Procedure Name Priority Date/Time Associated Comments Diagnosis STRESS ECHOCARDIOGRAM Routine 11/16/2002 1:52 PM Results for this CDT procedure are i n the results section. documented in this encounter Results Stress Echocardiogram (11/16/2002 1:52 PM CDT) Specimen (Source) Anatomical Collection Method Collection Time Re ceived Time Location / / Volume Laterality 11/16/2002 1:52 PM CDT Narrative HP CONVERSION - 11/16/2002 1:52 PM CDT Resting heart rate: 94 ? Resting blood pressure: 136/84 Maximum predicted heart rate: 180 ? Maximum blood pressure: 190/100 Maximum heart rate achieved: ??163 ?Rate pressure product: ??30,970 % Maximum heart rate achieved: 91% ?? E xercise duration: 9:00 METS: ??8.5 ? Optison: ??1.4 cc INDICATION FOR EXAM: Chest pain. This study included two-dimensional echo , pulse, continuous wave and color Doppler. MEDICATIONS: ??No medications which woul d affect test results. PROTOCOL: ??Bike ergometer-echocardiogra m with contrast. SYMPTOMS: ??Fatigue; Predicted heart rat e achieved. ECG, REST: ??Normal ST-T segments. ECG, STRESS: ??No significant ST segment shifts noted. ECHO, REST: ??Chamber size, wall motion, and wall thickness are normal. No significant valvular abnormalities ar e seen. ??Visually estimated left ventricular ejection fraction is 55 %. ECHO, STRESS: ??All segments display jamie ropriate hyperkinesis; ejection fraction increases appropriately. CONCLUSION: ??1. ??Normal exercise echoc ardiogram with adequate ? heart rate. ? 2. ??No evidence for inducible ischemia. ? 3. ??Image quality wa s acceptable. Hansa Lewis REGIONAL INTERMODAL TRUCK DRIVER, PLATFORM LOADER PN ECHO ORDERABLES Performing Organization Address City/State/ZIP Code Phon e Number HP CONVERSION documented in this encounter Visit Diagnoses Not on filedocumented in this encounter Care Teams Outpatient Clerk Relationship Specialty Start Date End Date Unassigned, Provider PCP - General 06/29/00 10/21/[address] [place] [address] documented as of this encounter
--- OUTSIDE RECORDS SUMMARY | 2022-04-16 08:14 | XMS_ITS | Encounter Summary ---
:1960 [facility] Address [address] [address] Care Team Providers Name Role Phone Hansa Lewis APRN, CNP Primary Care Provider [phone] Encounter Details Date Type Department Care Team Description 06/13/2007 Office Visit [place] [facility] Hansa Lewis APRN, [facility] [address] [facility] [address] [place] [address] [place] [address] [phone] (Wo rk) Social History Tobacco Use Types Packs/Day Years Used Date Smoking Tobacco: Never Assessed Sex Assigned at Date Recorded Not on file documented as of this encounter Last Filed Vital Signs Vital Sign Reading Time Taken Comments Blood Pressure 122/72 06/13/2007 9:39 AM QC MANAGER Pulse 55 06/13/2007 9:39 AM QC MANAGER Temperature - - Respiratory Rate - - Oxygen Saturation - - Inhaled Oxygen Concentration - - Weight 92.1 kg (202 lb 15.6 oz) 06/13/2007 9:39 AM QC MANAGER C: 92.1kg Height - - Body Mass Index 27.15 06/06/2007 8:21 AM QC MANAGER documented in this encounter Progress Notes Hansa Lewis APRN, CNP - 06/13/2007 12:01 AM CST Progress Notes signed by CRISTINA Steele at 07/01/07 0822 Author: CRISTINA Steele Service: (none) Author Type: (none) Filed: 11/10/10 2307 Note Time: 06/13/07 0001 Status: Signed Glass Cleaner: CRISTINA Steele (Nurse Practitioner) NAME: JOSH MOSLEY MR#: [id number] ACCT: [id number] VISIT: [id number] DICTATING CLINICIAN: CRISTINA Steele JOB: [id number] LOC: 506 CLINIC PROGRESS NOTE DATE OF VISIT: 06/13/2007 SUBJECTIVE: : 1960. A 47-year-old gentleman in clinic today to follow up for a recent abnormal lab test. He was in on 06/06 for his routine health exam. Notable results were an elevated fasting glucose of 135, slightly elevated serum creatinine of 1.5 on lisinopril 20 mg, an elevated LDL of 156, a low HDL of 35, high triglycerides of 182, cholesterol/HDL ratio of 6.5. Since receiving these results, Angely has done some further family history investigation and says that one of his sisters has diabetes, which he had not been aware of, and also on both sides of his mother's and father's family he has paternal and maternal aunts and uncles with diabetes. His parents both in their 60s. We also have some conflicting evidence from a life insurance physical that he had 2 weeks prior to his routine health exam. Results from that physical show an elevated ALT of 85, bilirubin of 1.7, and LDL that is normal at 118, a fasting glucose that is normal at 99. Also, of note in that lab work they did a hepatitis B surface antigen and hepatitis C antibody, which were both negative. REVIEW OF SYSTEMS: Angely continues to deny any urinary urgency, frequency. 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 He denies any abdominal pain. No history of hepatitis that he is aware of. No food intolerances. No blurred vision or kgix-qm-dgty lesions. No chest pain or palpitations. PAST MEDICAL HISTORY: Hypertension. MEDICATIONS: Atenolol 50 mg one p.o. daily, lisinopril 20 mg one p.o. daily, Prilosec 20 mg one p.o. daily. ADR/ALLERGIES: CODEINE. SOCIAL HISTORY: with children. Nonsmoker. Rare use of alcohol. OBJECTIVE: VS: BP: 122/77. P: 55. Wt: 203. Pat is in good spirits. Alert, oriented, upbeat. SKIN: Warm, dry, nondiaphoretic. LUNGS: Clear. CARDIOVASCULAR: S1, S2. Rate and rhythm regular at 54. No pedal edema. Good pulses palpated. ASSESSMENT: 1. Abnormal LFTs. We will get a right upper quadrant ultrasound, a full liver panel, including those abnormals that were noted in his life insurance physical. 2. Hypertension, well controlled. We will get a BUN, creatinine, electrolytes to repeat renal function monitoring on Prinivil. 3. Elevated fasting glucose. Repeat the fasting glucose to compare, also again to the life insurance physical which showed a normal level, and will get a hemoglobin A1c as well. Advised that if his hemoglobin A1c is between 6% and 7%, he will be referred to [facility] to be taught carbohydrate counting, monitoring of glucose with his own glucometer, and signs and symptoms of diabetes which we also discussed today. 4. Hypercholesterolemia. Again, this is not collaborated with the information from the life insurance physical, so we will repeat the cholesterol fractionation test and proceed accordingly. He is in agreement with this plan, and will return to clinic as recommended. PLAN: See assessment. LAE:[id number] C: 06/13/07 10:54 DOCUMENT: [id number] MANAGER documented in this encounter Plan of Treatment Not on filedocumented as of this encounter Visit Diagnoses Not on filedocumented in this encounter Care Teams Certified Nursing Assistant Relationship Specialty Start Date End Date Hansa Lewis, DELMA, HOUSING GRANT ANALYST PCP - General 10/22/10 11/30/12 [address] [place] [address] documented as of this encounter
--- OUTSIDE RECORDS SUMMARY | 2022-04-16 08:14 | XMS_ITS | Encounter Summary ---
:1960 [facility] Address [address], [place] [address] Care Team Providers Name Role Phone Hansa Lewis APRN, CNP Primary Care Provider [phone] Encounter Details Date Type Department Care Team Description 06/05/2005 Office Visit [place] [facility] Hansa Lewis APRN, [facility] [address] [facility] [address] [place] [address] [place] [address] [phone] (Wo rk) Social History Tobacco Use Types Packs/Day Years Used Date Smoking Tobacco: Never Assessed Sex Assigned at Date Recorded Not on file documented as of this encounter Last Filed Vital Signs Vital Sign Reading Time Taken Comments Blood Pressure 106/80 06/05/2005 3:55 PM TIRE CENTER SUPERVISOR Pulse 60 06/05/2005 3:55 PM TIRE CENTER SUPERVISOR Temperature - - Respiratory Rate - - Oxygen Saturation - - Inhaled Oxygen Concentration - - Weight 89.7 kg (197 lb 11 oz) 06/05/2005 3:55 PM TIRE CENTER SUPERVISOR C: 89.7kg Height 185.4 cm (6' 1) 06/05/2005 3:55 PM TIRE CENTER SUPERVISOR C: 185.4 cm Body Mass Index 26.08 06/05/2005 3:55 PM TIRE CENTER SUPERVISOR documented in this encounter Progress Notes Hansa Lewis APRN, YARED - 06/05/2005 12:01 AM CST H&P signed by CRISTINA Steele at 07/10/05 1529 Author: CRISTINA Steele Service: (none) Author Type: (none) Filed: 11/10/10 0809 Note Time: 06/05/052016 Status: Signed Probation Manager: CRISTINA Steele (Nurse Practitioner) NAME: JOSH MOSLEY MR: [id number] ACCT: [id number] VISIT: [id number] DICTATING CLINICIAN: HANSA LEWIS RN,RACK WORKER JOB: [id number] CLINIC PHYSICAL DATE OF VISIT: 06/05/2005 SUBJECTIVE: : 1960. A 45-year-old male in clinic for routine health care. He does not recall when he last had a complete physical. He does have 1 concern today, and that is that he has been on Zantac 150 b.i.d. for control of gastroesophageal reflux disease. He says that for the last 2 weeks he has not had a problem. He does associate problems with reflux associated with diet; however, he does have a lot of breakthrough symptoms and will occasionally have it perhaps 4 or 5 days out of a week. He has not previously been on a proton pump inhibitor. PAST MEDICAL HISTORY: Hypertension, on atenolol 50 mg 1 p.o. daily and lisinopril 20 mg 1 p.o. daily. 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 This was solved with vein stripping in 07/2003. FAMILY HISTORY: No diabetes. His mother at 62 of an RI. He had a maternal uncle who had his 1st RI at the age or 42. His mother has hypertension. To his knowledge, no family history of cholesterolemia or cancer. He is 1 of 7 children, and to his knowledge he is the only one with any health concerns. SOCIAL HISTORY: He is and has 4 children. 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 REVIEW OF SYSTEMS: ENT: No sinus congestion or chronic allergies. Constitutional: No unusual weight loss, fatigue or sweats. Cardiovascular: No chest pain or palpitations. Pulmonary: No cough, wheeze or shortness of breath. Gastrointestinal: As above. He denies bowel changes, such as diarrhea, constipation or blood in stools. Genitourinary: Does not get up more than twice a night to urinate. Has no difficulty with urination and no erectile dysfunction. Musculoskeletal: No myalgias or arthralgias. Lymphatic: No enlarged or tender lymph nodes. Psych: No anxiety or depression. Neuro: No headaches, seizures, loss of balance, coordination, concentration. Skin: No unusual rashes or lesions. MEDICATIONS: Atenolol 50 mg 1 p.o. daily, Zantac 150 mg 1 p.o. b.i.d. and Prinivil 20 mg 1 p.o. daily. ADR/ALLERGIES: CODEINE. HEALTH HABITS: He does not exercise or smoke. He drinks alcohol infrequently. Considers his diet balanced. His tetanus was updated in February of this year. Cholesterol last evaluated in 2001. At that time, HDL was only 33, cholesterol-HDL ratio 5.7 with an LDL of 150. OBJECTIVE: VS: BP: 106/80. P: 60. Ht: 6 ft 1 in. Wt: 197. Alert and oriented, upbeat. SKIN: Warm, dry and non-diaphoretic. No unusual lesions or rashes. HEENT: Eyes: Conjunctivae clear and PERRLA. Ears: TMs pearly dominguez, without distortion. Nasal passages and oropharynx within normal limits. Dentition good. NECK: Supple. No lymphadenopathy. No thyroid enlargement, nodularity or tenderness. LUNGS: Clear. No wheezes, rales or rhonchi. CARDIOVASCULAR: S1, S2. Rate and rhythm regular, without clicks, murmurs or rubs. ABDOMEN: Flat. Active bowel sounds. Soft, nontender. No hepatosplenomegaly. EXTERNAL GENITALIA: Testicles descended bilaterally. No nodularity or tenderness. No abnormality of scrotal rugae. No lesions on the penile shaft. RECTUM: Good sphincter tone. Small amount of medium-brown stool in rectal vault that is guaiac-negative. Prostate is non-enlarged, nontender, non-nodular and symmetric. EXTREMITIES: No cyanosis, clubbing or edema. Pedal pulses symmetric. NEURO: Even tandem gait observed. ASSESSMENT: 1. Routine health maintenance exam. 2. Gastroesophageal reflux disease, uncontrolled at this time. 3. Hypertension, well controlled. 4. History hyperlipidemia. PLAN: He will have a fasting cholesterol fractionation and glucose, BUN, creatinine and electrolytes and CBC. He is given refills of both atenolol and Prinivil, and he will be starting Prilosec 20 mg 1 p.o. daily with protein-containing meal of the day. He may supplement with Zantac p.r.n.; however, if he is needing to do this if he does not get control of the gastroesophageal reflux disease symptoms, we will then schedule EGD. Patient is in agreement with this plan. LAE:[id number] C: 06/06/05 10:21 DOCUMENT: [id number] CENTER SUPERVISOR documented in this encounter Plan of Treatment Not on filedocumented as of this encounter Visit Diagnoses Not on filedocumented in this encounter Care Teams Ski Lift Mechanic Relationship Specialty Start Date End Date Hansa Lewis APRN, RACK WORKER PCP - General 10/22/10 11/30/12 [address] [place] [address] documented as of this encounter
--- OUTSIDE RECORDS SUMMARY | 2022-04-16 08:14 | XMS_ITS | Encounter Summary ---
:1960 Author Organization [facility] Address [address], [place] [address] Care Team Providers Name Role Phone Hansa Lewis APRN, CNP Primary Care Provider [phone] Encounter Details Date Type Department Care Team Description 06/07/2004 Office Visit [facility] Hansa Lewis APRN, [facility] [address] [facility] [address] [place] [address] [place] [address] [phone] (Wo rk) Social History Tobacco Use Types Packs/Day Years Used Date Smoking Tobacco: Never Assessed Sex Assigned at Date Recorded Not on file documented as of this encounter Progress Notes Hansa Lewis APRN, CNP - 06/07/2004 12:01 AM CST Progress Notes signed by CRISTINA Steele at 06/13/04 1629 Author: CRISTINA Steele Service: (none) Author Type: (none) Filed: 11/10/10 0122 Note Time: 06/07/04 0001 Status: Signed Mud Tank Operator: CRISTINA Steele (Nurse Practitioner) NAME: JOSH MOSLEY MR: [id number] ACCT: [id number] VISIT: [id number] DICTATING CLINICIAN: JOSEP STEELE,RN JOB: [id number] CLINIC PROGRESS NOTE DATE OF VISIT: 06/07/2004 SUBJECTIVE: : 1960. CC: Refill of medications for hypertension and gastroesophageal reflux disease. HPI: Josh had well-controlled blood pressures in Prinivil 20 mg one p.o. daily and atenolol 50 mg one p.o. daily. He denies shortness of breath, chest pain, palpitations, or exercise intolerance. He says occasionally if he is doing packing and is bent over and stands up too quickly, he will feel briefly lightheaded with mild nausea which passes within a matter of 10 seconds or so. He denies chest pain accompanying these symptoms, visual disturbance, or syncope, and he says he is always able to attribute it to a rapid change from sitting or bent over to standing. PAST HISTORY: Gastroesophageal reflux disease, occasionally forgets to take is evening Zantac dose, and if he does that over the course of 2 or 3 days, he will have night time substernal burning. PAST MEDICAL HISTORY: Otherwise noncontributory. MEDICATIONS: Prinivil 20, atenolol 50, Zantac 150 b.i.d. ADR/ALLERGIES: NONE KNOWN. SOCIAL HISTORY: Nonsmoker. OBJECTIVE: VS: BP: 124/78 P: 60 Wt: 200 lb. Pat appears well, good color, alert and oriented, upbeat. SKIN: Warm, dry, nondiaphoretic. LUNGS: Clear. No wheezes, rales, or rhonchi. CARDIOVASCULAR: S1, S2. Rate and rhythm are regular without murmur. ASSESSMENT: 1. Hypertension, well controlled. 2. Gastroesophageal reflux disease, controlled. PLAN: He will have BUN, creatinine, and electrolytes, code 995.2. He is given refills of all of the above medications at current dose, and he is encouraged to make appointment for a complete physical in 6 months. LAE:[id number] C: 06/08/04 13:39 DOCUMENT: [id number] PER OPERATOR documented in this encounter Plan of Treatment Not on filedocumented as of this encounter Visit Diagnoses Not on filedocumented in this encounter Care Teams Pill Packer Relationship Specialty Start Date End Date Hansa Leiws, GRANITE POLISHER, CUSTOMER SERVICE TRAINER PCP - General 10/22/10 11/30/12 [address] [place] [address] documented as of this encounter
--- OUTSIDE RECORDS SUMMARY | 2022-04-16 08:14 | XMS_ITS | Encounter Summary ---
:1960 Author Organization [facility] Address [address] [place] [address] Care Team Providers Name Role Phone Hansa Lewis APRN, CNP Primary Care Provider [phone] Reason for Visit Reason Comments Other Encounter Details Date Type Department Care Team Description 01/17/2007 Telephone [facility], Message Other [address] [place] [address] Social History Tobacco Use Types Packs/Day Years Used Date Smoking Tobacco: Never Assessed Sex Assigned at Date Recorded Not on file documented as of this encounter Progress Notes Center, Message - 01/17/2007 9:01 AM CDT Phone Note filed by [facility] at 11/07/10 1687 Author: [facility] Service: (none) Author Type: (none) Filed: 11/07/10 1650 Note Time: 01/17/07 09 Status: Signed Costume Rental Clerk: [facility] Non -Symptom Message from Front Line Caller Name/Relationship:veronica/ Primary Burr Sander:timothy Message:went on vacation for 7 days and forgot meds. please send rx's to [facility], [place], [place], ph [phone]---atenolol 50 mg, prilosec 20 mg & prinivil 20 mg. Box Storage Worker:veronica or samanta Best call back number:[phone] Best time to call back:today Is it OK to leave a confidential message on this voicemail?may have to leave a message w/an individual for them. *ECODE~[id number] Created on 17Jan2007 9:01am by EDGAR NUNEZ On 17Jan2007 11:47am HANSA LEWIS wrote: please call in 7 day rx for atenolol and prinivil as listed in LW. Prilosec is OTC-no Rx necessary Acknowledged by HANSA LEWIS on 11:47am On 17Jan2007 12:59pm MEGHAN FARFAN wrote: Done. Acknowledged by MEGHAN FARFAN on 12:59pm REGISTER MECHANIC documented in this encounter Plan of Treatment Not on filedocumented as of this encounter Visit Diagnoses Not on filedocumented in this encounter Care Teams Beaming Machine Operator Relationship Specialty Start Date End Date Hansa Lewis APRN, MOTOR EQUIPMENT LIEUTENANT PCP - General 10/22/10 11/30/12 [address] [place] [place] [id number] documented as of this encounter
--- OUTSIDE RECORDS SUMMARY | 2022-04-16 08:14 | XMS_ITS | Encounter Summary ---
:1960 [facility] Address [address], [place] [address] Care Team Providers Name Role Phone Hansa Lewis APRYARED Ma Primary Care Provider [phone] Encounter Details Date Type Department Care Team Description 03/10/2005 Office Visit [facility] [place] [address] [address] [place] [address] [phone] Social History Tobacco Use Types Packs/Day Years Used Date Smoking Tobacco: Never Assessed Sex Assigned at Date Recorded Not on file documented as of this encounter Last Filed Vital Signs Vital Sign Reading Time Taken Comments Blood Pressure 126/70 03/10/2005 4:53 PM CDT Pulse 59 03/10/2005 4:53 PM CDT Temperature - - Respiratory Rate 16 03/10/2005 4:53 PM CDT Oxygen Saturation - - Inhaled Oxygen Concentration - - Weight - - Height - - Body Mass Index - - documented in this encounter Progress Notes Jose A Dixon MD - 03/10/2005 12:01 AM CDT Progress Notes signed by Jose A Dixon MD at 03/29/05 1632 Author: Jose A Dixon MD Service: (none) Author Type: Physician Filed: 11/10/10 0629 Note Time: 03/10/05 0001 Status: Signed Company Marker: Jose A Dixon MD (Physician) NAME: JOSH MOSLEY MR: [id number] ACCT: [id number] VISIT: [id number] DICTATING CLINICIAN: JOSE A DIXON MD JOB: [id number] CLINIC PROGRESS NOTE DATE OF VISIT: 03/10/2005 SUBJECTIVE: A 45-year-old male is home today. He had a utility knife that he slipped and cut his right thigh with. Is bleeding and wound laying open. He is here for treatment and recommenation. It has been more than 10 years since his last tetanus shot. PAST MEDICAL HISTORY: Remarkable for hypertension. CURRENT MEDICATIONS: Atenolol, Zantac, and Prinivil. ADR/ALLERGIES: NO KNOWN DRUG ALLERGIES. OBJECTIVE: VS: BP: 126/70 T: 98.4 P: 59 R: 16 The patient is well-nourished appearing and is here with today. The right leg, just proximal to the knee and the anterior medial aspect there is a laceration measuring 2.3 cm. The subcutaneous tissue is visible. There is light bleeding. Appears to be no involvement of the muscles. Good flexion/extension ability of the knee. The area is cleansed with Shur-Clens and then locally anesthetized with 2% lidocaine after informed consent for primary closure is obtained. Then, using sterile technique, the wound edges are approximated on each edge of the wound. Simple 4-0 Ethilon suture was applied and 2 horizontal mattress stitches in the central portion of the wound. This brings the edges well together. Good hemostasis. The wound is additionally cleansed. There was no evidence of any residual foreign body on exam prior to closure. For a dressing, we applied bacitracin, Telfa, and a Coban wrap. ASSESSMENT: Laceration of the leg. PLAN: Tetanus is boosted today. Wound cares are reviewed. Daily dressing changes. Sign of infection, recheck with physician, otherwise in 10 to 14 days, return to consider suture removal. BOR:[id number] C: 03/11/05 14:29 DOCUMENT: [id number] documented in this encounter Plan of Treatment Not on filedocumented as of this encounter Visit Diagnoses Not on filedocumented in this encounter Care Teams Decorative Engraver Relationship Specialty Start Date End Date Hansa Lewis APRN, EXTRUSION DIE REPAIR MANAGER PCP - General 10/22/10 11/30/12 [address] [place] [address] documented as of this encounter
--- OUTSIDE RECORDS SUMMARY | 2022-04-16 08:14 | XMS_ITS | Encounter Summary ---
:1960 Author Organization [facility] Address [address] [place] [address] Care Team Providers Name Role Phone Hansa Lewis APRN, CNP Primary Care Provider [phone] Encounter Details Date Type Department Care Team Description 08/28/2004 PN Conversion Only [place] [facility] N Jose Mata W, [address] [facility] [place] [id number] [facility] [address] DE LEÓN MD 5 [phone] (Wo rk) Social History Tobacco Use Types Packs/Day Years Used Date Smoking Tobacco: Never Assessed Sex Assigned at Date Recorded Not on file documented as of this encounter Plan of Treatment Not on filedocumented as of this encounter Procedures Procedure Name Priority Date/Time Associated Comments Diagnosis BLOOD CULTURE Routine 08/28/2004 5:16 PM Results for this INCLUDES AEROBIC AND SEXUAL HEALTH PHYSICIAN procedu re are in ANAEROBIC the results section. BLOOD CULTURE Routine 08/28/2004 5:14 PM Results for this INCLUDES AEROBIC AND SEXUAL HEALTH PHYSICIAN procedu re are in ANAEROBIC the results section. ALT (SGPT) Routine 08/28/2004 5:14 PM Results f or this SEXUAL HEALTH PHYSICIAN procedure are i n the results section. AST Routine 08/28/2004 5:14 PM Results f or this SEXUAL HEALTH PHYSICIAN procedure are i n the results section. BILIRUBIN, TOTAL Routine 08/28/2004 5:14 PM Resul ts for this SEXUAL HEALTH PHYSICIAN procedure are i n the results section. BILI - DIRECT Routine 08/28/2004 5:14 PM Results for this SEXUAL HEALTH PHYSICIAN procedure are i n the results section. ALKALINE PHOSPHATASE, Routine 08/28/2004 5:14 PM Results for this TOTAL SEXUAL HEALTH PHYSICIAN procedure are i n the results section. ALBUMIN Routine 08/28/2004 5:14 PM Results f or this SEXUAL HEALTH PHYSICIAN procedure are i n the results section. ELECTROLYTES (NA, K, Routine 08/28/2004 4:05 PM R esults for this CL, BICARB) SEXUAL HEALTH PHYSICIAN procedure are i n the results section. URINALYSIS COMPLETE Routine 08/28/2004 4:05 PM Re sults for this HOLD CULTURE SEXUAL HEALTH PHYSICIAN procedure are i n the results section. COMPLETE BLOOD Routine 08/28/2004 4:05 PM Results for this COUNT-W/DIFF SEXUAL HEALTH PHYSICIAN procedure are i n the results section. ESR Routine 08/28/2004 4:05 PM Results f or this SEXUAL HEALTH PHYSICIAN procedure are i n the results section. documented in this encounter Results Blood Culture includes Aerobic and Anaerobic (08/28/2004 5:16 PM SEXUAL HEALTH PHYSICIAN) [facility] SEE TEXT HP CONVERSION Comment: Patient: JOSH MOSLEY Culture, Blood @ ?Collected: ??[id number] Source: BLOOD ? Processed: ??[id number] ??[id number] ? 1V,RIGHT ARM FINAL REPORT -------- ?[id number] ??[id number] No aerobic growth at 5 days @ = BLOOD CULTURE Performed at ??[address] [facility], ??[place] ?[address] Specimen (Source) Anatomical Collection Method Collection Time Re ceived Time Location / / Volume Laterality 08/28/2004 5:16 PM SEXUAL HEALTH PHYSICIAN Jose Lopez Adolfo NGUYỄN CNP LAB_1 Performing Organization Address [facility] Code Phon e Number HP CONVERSION Albumin (08/28/2004 5:14 PM SEXUAL HEALTH PHYSICIAN) athologist Signature Albumin 4.6 3.0 - 5.0 HP CONVERSION g/dL Specimen (Source) Anatomical Collection Method Collection Time Re ceived Time Location / / Volume Laterality 08/28/2004 5:14 PM SEXUAL HEALTH PHYSICIAN Jose Lopez Adolfo NGUYỄN CNP LAB_1 Performing Organization Address [facility] Code Phon e Number HP CONVERSION Alkaline Phosphatase, Total (08/28/2004 5:14 PM SEXUAL HEALTH PHYSICIAN) athologist Signature Alk Phos 69 50 - 136 U/L HP CONVERSION Specimen (Source) Anatomical Collection Method Collection Time Re ceived Time Location / / Volume Laterality 08/28/2004 5:14 PM SEXUAL HEALTH PHYSICIAN Jose Lopez Adolfo NGUYỄN CNP LAB_1 Performing Organization Address [facility] Phon e Number HP CONVERSION ALT (SGPT) (08/28/2004 5:14 PM SEXUAL HEALTH PHYSICIAN) [facility] Method Time Signature Alanine 53 0 - 65 HP CONVERSION Aminotransferase U/L Specimen (Source) Anatomical Collection Method Collection Time Re ceived Time Location / / Volume Laterality 08/28/2004 5:14 PM SEXUAL HEALTH PHYSICIAN Jose Lopez Adolfo NGUYỄN CNP LAB_1 Performing Organization Address City/[facility]/ZIP Code Phon e Number HP CONVERSION AST (08/28/2004 5:14 PM SEXUAL HEALTH PHYSICIAN) [facility] Method Time Signature Aspartate 23 0 - 45 HP CONVERSION Aminotransferase U/L Specimen (Source) Anatomical Collection Method Collection Time Re ceived Time Location / / Volume Laterality 08/28/2004 5:14 PM SEXUAL HEALTH PHYSICIAN Jose Lopez Adolfo NGUYỄN CNP LAB_1 Performing Organization Address City/[facility]/ZIP Code Phon e Number HP CONVERSION Bilirubin, Direct (08/28/2004 5:14 PM SEXUAL HEALTH PHYSICIAN) athologist Signature Bilirubin, 0.1 0.0 - 0.4 HP CONVERSION Direct mg/dL Specimen (Source) Anatomical Collection Method Collection Time Re ceived Time Location / / Volume Laterality 08/28/2004 5:14 PM SEXUAL HEALTH PHYSICIAN Jose Mata APRN, YARED LAB_1 Performing Organization Address [facility] Phon e Number HP CONVERSION Bilirubin, Total (08/28/2004 5:14 PM SEXUAL HEALTH PHYSICIAN) athologist Signature Bilirubin Total 0.7 0.2 - 1.2 HP CONVERSION mg/dL Specimen (Source) Anatomical Collection Method Collection Time Re ceived Time Location / / Volume Laterality 08/28/2004 5:14 PM SEXUAL HEALTH PHYSICIAN Jose Mata APRN, YARED LAB_1 Performing Organization Address [facility] Phon e Number HP CONVERSION Blood Culture includes Aerobic and Anaerobic (08/28/2004 5:14 PM SEXUAL HEALTH PHYSICIAN) Analysis Performed At Patho logist Time Signature Blood Culture SEE TEXT HP CONVERSION Comment: Patient: JOSH MOSLEY Culture, Blood @ ?Collected: ??[id number] Source: BLOOD ? Processed: ??[id number] ??[id number] ? 1V,LEFT ARM FINAL REPORT -------- ?[id number] ??[id number] No aerobic growth at 5 days @ = BLOOD CULTURE Performed at ??[address] [facility], ??[place] ?[address] Specimen (Source) Anatomical Collection Method Collection Time Re ceived Time Location / / Volume Laterality 08/28/2004 5:14 PM SEXUAL HEALTH PHYSICIAN Jose Jessica Adolfo NGUYỄN SUPERVISING DEPUTY LAB_1 Performing Organization Address City/State/ZIP Code Phon e Number HP CONVERSION (ABNORMAL) Complete Blood Count-W/Diff (08/28/2004 4:05 PM SEXUAL HEALTH PHYSICIAN) [facility] gist Method Time Signature White Blood Cell 3.1 (L) 3.8 - 11.0 HP CONVERSIO N Count K/cmm Red Blood Cell 5.31 4.20 - HP CONVERSION Count 5.90 m/cmm Hemoglobin 15.8 13.4 - HP CONVERSION 17.5 gm/dL Hematocrit 47.8 39.0 - HP CONVERSION 51.0 % Mean Corpuscular 89.9 80.0 - HP CONVERSION Volume 100.0 fl Mean Corpuscular 29.8 27.0 - HP CONVERSION Hemoglobin 34.0 pg Mean Corpuscular 33.1 32.0 - HP CONVERSION Hemoglobin Conc 36.5 gm/dL [place] RDW 11.7 11.0 - HP CONVERSION 15.0 % Platelet Count 239 140 - 450 HP CONVERSION k/cmm Differential Auto-Dif No normal HP CONVERSION Verify range Neutrophils 1.6 (L) 2.0 - 7.5 HP CONVERSION Absolute Count K/cmm Neutrophil 49.7 (L) 50.0 - HP CONVERSION 75.0 % Lymphocyte % 39.2 20.0 - HP CONVERSION 40.0 % Monocyte 9.9 5.0 - 14.0 HP CONVERSION % Eosinophil 0.4 0.0 - 6.0 HP CONVERSION % Basophil % 0.8 0.0 - 2.0 HP CONVERSION % Specimen (Source) Anatomical Collection Method Collection Time Re ceived Time Location / / Volume Laterality 08/28/2004 4:05 PM SEXUAL HEALTH PHYSICIAN Jose Mata APRN SUPERVISING DEPUTY LAB_1 Performing Organization Address City/[facility] Phon e Number HP CONVERSION (ABNORMAL) Urinalysis Complete Hold Culture (08/28/2004 4:05 PM SEXUAL HEALTH PHYSICIAN) [facility] Method Time Signature U Specific 1.025 1.005 - 25 HP CONVERSION [place] pH Urine 5.0 4.5 - 7.5 HP CONVERSION Protein Urine Trace Neg-Trac HP CONVERSION Glucose, Negative Neg-Trac HP CONVERSION Qualitative U Ketones Negative Negative HP CONVERSION U BILI Negative Negative HP CONVERSION Blood Urine Trace (A) Negative HP CONVERSION Nitrite Urine Negative Negative HP CONVERSION Leukocyte Negative Negative HP CONVERSION Esterase Urine Urobilinogen Negative 0.2 - 1.0 HP CONVERSION Urine White Blood 5-9/HPF (A) 0 - 3 HP CONVERSION Cells Urine Red Blood Cells 0-2/HPF 0 - 2 HP CONVERSION Urine Bacteria Urine Few (A) None HP CONVERSION Urine Mucus Few None HP CONVERSION Specimen (Source) Anatomical Collection Method Collection Time Re ceived Time Location / / Volume Laterality 08/28/2004 4:05 PM SEXUAL HEALTH PHYSICIAN Jose Jessica Adolfo NGUYỄN CNP LAB_1 Performing Organization Address [facility] Phon e Number HP CONVERSION Electrolytes (NA, K, CL, Bicarb) (08/28/2004 4:05 PM SEXUAL HEALTH PHYSICIAN) athologist Signature Sodium 138 137 - 147 HP CONVERSION meq/L Potassium 4.8 3.5 - 5.2 HP CONVERSION meq/L Chloride 101 98 - 110 HP CONVERSION meq/L Bicarbonate 23 23 - 33 HP CONVERSION mmol/L Specimen (Source) Anatomical Collection Method Collection Time Re ceived Time Location / / Volume Laterality 08/28/2004 4:05 PM SEXUAL HEALTH PHYSICIAN Jose Jessica Adolfo NGUYỄN CNP LAB_1 Performing Organization Address [facility] Phon e Number HP CONVERSION ESR (08/28/2004 4:05 PM SEXUAL HEALTH PHYSICIAN) [facility] Method Time Signature Sedimentation Rate 13 0 - 15 HP CONVERSI ON mm/Hr Specimen (Source) Anatomical Collection Method Collection Time Re ceived Time Location / / Volume Laterality 08/28/2004 4:05 PM SEXUAL HEALTH PHYSICIAN Jose Jessica Adolfo NGUYỄN CNP LAB_1 Performing Organization Address [facility] Phon e Number HP CONVERSION documented in this encounter Visit Diagnoses Not on filedocumented in this encounter Care Teams Human Relations Professor Relationship Specialty Start Date End Date Hansa Lewis APRN, SUPERVISING DEPUTY PCP - General 10/22/10 11/30/12 [id number] AM[address] TERENCE DRAKE [id number] documented as of this encounter
--- OUTSIDE RECORDS SUMMARY | 2022-04-16 08:14 | XMS_ITS | Encounter Summary ---
:1960 Author Organization Formerly [facility] Address [address] [address] Care Team Providers Name Role Phone Hansa Lewis APRN, CNP Primary Care Provider [phone] Encounter Details Date Type Department Care Team Description 04/09/2003 PN Conversion Only [place] [facility] Hansa Leiws APRN, [facility] [address] [place] [address] [place] [address] [phone] (Wo rk) Social History Tobacco Use Types Packs/Day Years Used Date Smoking Tobacco: Never Assessed Sex Assigned at Date Recorded Not on file documented as of this encounter Progress Notes Hansa Lewis APRN, CNP - 04/09/2003 12:01 AM CDT Progress Notes signed by CRISTINA Steele at 04/23/03 1333 Author: CRISTINA Steele Service: (none) Author Type: (none) Filed: 11/09/10 1558 Note Time: 04/09/03 0001 Status: Signed Lead Instructor/Flight Attendant: CRISTINA Steele (Nurse Practitioner) NAME: BRYCE MOSLEY MR: [id number] ACCT: [id number] VISIT: [id number] DICTATING CLINICIAN: HANSA LEWIS CNP,RN JOB: [id number] CLINIC PROGRESS NOTE DATE OF VISIT: 04/09/2003 SUBJECTIVE: : 1960. Mr. Mosley is in clinic today as a followup to treatment for hypertension. He is running out of his prescriptions. He has enough remaining til the end of the month. He is on Prinivil 10 mg one p.o. q.d., had elevated serum creatinine to 1.6 when he was taking lisinopril 20 mg. He does periodically have his blood pressure checked at our calibrated cuff here at [facility], and typically the systolic does not run over 140 and the diastolic does not run over 100, but diastolic is never less than 90. He continues to deny any shortness of breath, palpitations, chest pain, lightheadedness, or syncope. In 10/2001 he had a stress echocardiogram which concluded that he had normal exercise echocardiogram, adequate heart rate, no evidence of inducible ischemia. This was ordered because of his complaint of intermittent feeling of flushing and clamminess. He has never reported chest pain, dyspnea, fatigue, nausea, vomiting, or dizziness. 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 He has a chronic problem with gastroesophageal reflux disease. It usually bothers him at night, and a couple weeks ago he awoke in the night with symptoms. He took [id number] Zantac and said he must have had #10 of them before the pain went away. The pain was in the midepigastrium, and he said he could feel the food refluxing up into his esophagus. It did help to sit up and to drink water in conjunction with the Zantac. He denied chest pain, shortness of breath, diaphoresis, fatigue, or lightheadedness accompanying this episode. 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 (2) Hypertension. MEDICATIONS: Prinivil 10 mg one p.o. q.d. ADR/ALLERGIES: NONE KNOWN. OBJECTIVE: VS: BP1: 130/80. BP2: Retaken by this examiner, 142/98. P: 84. R: 20. Ht: 6 ft. 2 in. Wt: 197 lb. This is a BMI of 26. Bryce appears well today. Alert and oriented x3. Positive affect. SKIN: Warm, dry, and nondiaphoretic. CARDIOVASCULAR: S1, S2. Rate and rhythm are regular, without clicks, murmurs, or rubs. PMI nondisplaced. Radial and pedal pulses x4, full and symmetric. Brisk capillary refill. Of note, he has large noninflamed, nontender, nonindurated right lower quadrant venous varicosities as well as numerous small spider veins of the right foot. There is no hyperpigmentation of venous stasis and no ulcerations noted. ASSESSMENT: 1. Hypertension, poorly controlled. 2. Medication management of GT inhibitor. 3. Gastroesophageal reflux disease. PLAN: 1. BUN, creatinine, and electrolytes today. 2. Atenolol 50 mg one p.o. q.d. started. I will contact him with results of the renal function tests. If abnormal, will discontinue lisinopril altogether. He is to follow up with me in one month's time for continued monitoring of his blood pressure, and he is referred to the hydraulic boom operator at his request for a heart healthy diet. For his reflux, he is given Zantac 150 mg one p.o. b.i.d., and I have asked him to take it on a scheduled basis. When he follows up in clinic in one month for hypertension, will also evaluate further adequacy of treatment for reflux. TT: CT: [id number] C: 04/11/03 12:35 DOCUMENT: [id number] Hansa Lewis, CIRCUIT WALKER, [facility] - 11/12/2002 12:01 AM CDT Progress Notes signed by CRISTINA Steele at 02/09/03 8241 Author: CRISTINA Steele Service: (none) Author Type: (none) Filed: 11/09/10 1333 Note Time: 11/12/02 0001 Status: Signed Lead Instructor/Flight Attendant: CRISTINA Steele (Nurse Practitioner) NAME: BRYCE MOSLEY MR: [id number] ACCT: [id number] VISIT: [id number] DICTATING CLINICIAN: HANSA LEWIS CNP,RN JOB: [id number] CLINIC PROGRESS NOTE DATE OF VISIT: 11/12/2002 SUBJECTIVE: Bryce Mosley is in clinic today for a recheck of his blood pressure. He was on lisinopril 20 mg. This has been increased from 10 mg. When BUN, creatinine, electrolytes were done his potassium was 5 which was within normal limits but his creatinine was slightly elevated at 1.6. He was dropped back down to 10 mg and his creatinine is 1.4 at this time. He has been monitoring his own blood pressure and generally says that it runs in the 130's/80s. Occasionally the systolic is 140s, occasionally diastolic 90s. He has not brought his recorded record with him today. He is concerned though because in the last four months he has been experiencing episodes when he feels as though he is clammy and flushed. He does not have any chest pain, shortness of breath, fatigue, nausea or vomiting, no dizziness or light headedness with these episodes. They pass spontaneously. He says they did not seem to be particularly notable with certain activities. He says that as he is sitting and talking to me in the exam room today he is experiencing that sensation. He says it just does not feel right. He also reports exercise intolerance. Has started playing [employer]. Does play for an hour but says that he just feels whipped during the exercise. Again denies chest pain, diaphoresis, fatigue, light headedness or dizziness. FAMILY HISTORY: Positive for coronary artery disease. His mother of an MT at 62 and one of his maternal uncles has coronary artery disease. Examining his other risk factors, he is a nonsmoker. His HDL is low, LDL within normal limits as is total cholesterol. Fasting glucose and TSH within normal limits in October of 2000. OBJECTIVE: VS: BP1: 132/88. BP2: 122/90 by this examiner. P: 62. Wt: 193.2 lb. SKIN: Warm and dry. Does not feel clammy. He does not appear flushed. EYES: Conjunctivae clear. NECK: Supple without lymphadenopathy. No JVD. LUNGS: Clear to auscultation throughout. No wheezes, rales or rhonchi. CARDIOVASCULAR: S1, S2. Rate and rhythm are regular without clicks, murmurs or rubs. PMI nondisplaced. EKG with normal sinus rhythm noted. No ectopy or ST elevation or depression. EXTREMITIES: Without cyanosis, clubbing or edema. ASSESSMENT: 1. Hypertension. 2. Exercise intolerance. PLAN: He will remain on lisinopril at current dose. I have encouraged him to keep monitoring his blood pressure and to followup with me in three months. We may need to add a diuretic. He is also to schedule for a stress echocardiogram and that is set up for November 16. TT: CT: [id number]:[id number] C: 11/13/02 12:38 DOCUMENT: [id number] Phone Note, Clinician - 11/09/2002 12:01 AM CDT Phone Note filed by Clinician Phone Note at 11/07/101106 Author: Clinician Phone Note Service: (none) Author Type: Resource Filed: 11/07/10 1107 Note Time: 11/09/02 0001 Status: Signed Lead Instructor/Flight Attendant: Clinician Phone Note (Resource) SUBJECTIVE: ALLERGIES/SENSITIVITIES... nka * HOME PHONE:[phone] * 09/18/02 * WORK PHONE:[phone] * CURRENT MEDICATIONS... Prinivil 20mg QD 09/18/02 PERTINENT PAST HISTORY... 09/18/02 ASSESSMENT: Lab letter. DISPOSITION: NO DISPOSITION GIVEN PLAN: [facility] COMMENTS... Per Suraj Lewis, Lab letter, Follow up as planned. CALL BY IRAIS SPRINGER RN 11/09/2002 08:38AM ADDENDUM: ICE ASSOCIATE Phone Note, Clinician - 09/18/2002 12:01 AM CST Phone Note filed by Clinician Phone Note at 11/07/10 1046 Author: Clinician Phone Note Service: (none) Author Type: Resource Filed: 11/07/10 1046 Note Time: 09/18/02 0001 Status: Signed Lead Instructor/Flight Attendant: Clinician Phone Note (Resource) TO: HANSA LEWIS FROM: JULIO CÉSAR SURESH RN [phone] * PROVIDER MESSAGE: ROUTINE * 09/18/02 10:40AM * *WITHIN 4 HOURS * MESSAGE: please advise * HOME PHONE:[phone] * SUBJECTIVE: * WORK PHONE:[phone] * CHIEF CONCERN... Pt was seen by you * CONTACT PHONE:[phone] * Jun 19 for B/P eval and his Prinivil was increased from 10mg to 20mg. He thought that you wanted him to have blood work around this time, if you do, what would you like ordered? ALLERGIES/SENSITIVITIES... nka 09/18/02 CURRENT MEDICATIONS... Prinivil 20mg QD 09/18/02 PERTINENT PAST HISTORY... 09/18/02 WEIGHT: ASSESSMENT: lab work needed/ PLAN: DISPOSITION: NO DISPOSITION GIVEN CALL BY JULIO CÉSAR SURESH RN 09/18/2002 10:37AM [phone] ADDENDUM: <> 09/18/2002 03:43PM by DIANA SANTOYO: Per Ananya Lewis's written orders, pt should go to lab for for more tests. Lab slip was sent to lab. I spoke to pt and let them know to go to the lab for more tests. Hansa Montoya APRN, [employer] - 06/19/2002 12:01 AM CST Progress Notes signed by at 09/12/02 0001 Author: CRISTINA Steele Service: (none) Author Type: (none) Filed: 11/09/10 1041 Note Time: 06/19/02 0001 Status: Signed Lead Instructor/Flight Attendant: CRISTINA Steele (Nurse Practitioner) IMPRESSION: Hypertension. Hyperlipidemia. SUBJECTIVE: Mr. Mosley is in clinic today for blood pressure evaluation. He was recently increased from his Prinivil 10 mg to 20 mg tablets. He said the first three days he felt a little bit light headed from time to time. A little bit emotional. He said that has completely subsided. He feels well, no light headedness. No depression, no chest pain, palpitations or shortness of breath, he feels energetic and healthy. he did a week after he started the Prinivil 20 mg had BUN, creatinine, lytes done which were within normal limits. He also requested a cholesterol fractionation at that time. His HDL is low, LDL and total cholesterol within normal limits his ratio is 5.7. He has taken some independent blood pressure readings and says he has been very happy with readings ranging in the 120s and 130s systolic and 70s and sometimes low 80s diastolic. He has no other concerns. OBJECTIVE: VS: BP: 134/86. P: 84. Wt: 191.6 lb. Very pleasant gentleman in no acute distress today, alert and oriented times three with positive affect. NECK: Supple, he has no lymphadenopathy. LUNGS: Clear to auscultation throughout. CARDIOVASCULAR: S1 and S2 rate and rhythm are regular without clicks, murmurs or rubs. ASSESSMENT: 1. Hypertension. 2. Hyperlipidemia. PLAN: He is using a machine in a new exercise regimen, he is trying to walk at least 30 minutes every other day during the week and he has started monitoring his diet a little bit better. We reviewed the meaning of the various aspects of the cholesterol fractionation and he recognizes that with increased exercise he may be able to increase his HDL and change his HDL cholesterol ratio. He also questions me today regarding CRP and relevancy of that test for cardiac screening, I reviewed with him recommendations. TT: CT: LAE:[id number] C: 06/19/02 21:04 DOCUMENT: [id number] ICE ASSOCIATE Conversion, [facility] - 05/28/2002 12:01 AM CST Phone Note signed by at 05/28/02 1036 Author: Jacquelyn Colin Service: (none) Author Type: (none) Filed: 11/09/10 1010 Note Time: 05/28/02 0001 Status: Signed Lead Instructor/Flight Attendant: Jacquelyn Colin IMPRESSION: REQUESTING LAB WORK TO: HANSA LEWIS FROM: ERLIN NUNEZ LPN [phone] * PROVIDER MESSAGE: ROUTINE * 05/28/02 10:36AM * *WITHIN 4 HOURS * MESSAGE: Pt call: rec'd lab order in * HOME PHONE:[phone] * mail for MARIS[employer]A [employer]. Pt has * WORK PHONE:[phone] * strong family hx of heart problems * CONTACT PHONE:[phone] * in family and would like chol f and * v.m. ok * any ot her testing regarding this problem. SUBJECTIVE: ALLERGIES/SENSITIVITIES... CURRENT MEDICATIONS... PERTINENT PAST HISTORY... WEIGHT: ASSESSMENT: REQUESTING LAB WORK PLAN: DISPOSITION: NO DISPOSITION GIVEN CALL BY ERLIN NUNEZ LPN 05/28/2002 10:35AM [phone] ADDENDUM: <> 05/28/2002 01:19PM by IRAIS URRUTIA RN: Per Hansa Lewis, fasting cholesterol fractionation - Okay please add to fuschia. pt notified and lab slip sent to the lab. ICE ASSOCIATE Hansa Lewis, CIRCUIT WALKER, [employer] - 05/22/2002 12:01 AM CST Progress Notes signed by at 09/12/02 0001 Author: CRISTINA Steele Service: (none) Author Type: (none) Filed: 11/09/10 1001 Note Time: 05/22/02 0001 Status: Signed Lead Instructor/Flight Attendant: CRISTINA Steele (Nurse Practitioner) IMPRESSION: Hypertension. SUBJECTIVE: Bryce Mosley is in clinic today for six month blood pressure check. He was last seen by his primary care provider in October. At that time his systolic was in the mid 130's and diastolic in the high 80's. He was given a six month refill of his medication and advised to return to clinic. Also BUN, creatinine, and electrolytes at that time were within normal limits. He has been on Prinivil 10 mg for, he says, up to six years, and had never had any problems on it. He continues to deny chest pain, palpitations, lightheadedness. He does have some ankle edema but it is associated with a past trauma injury to the right leg, producing varicosities in that right leg. He says he has no exercise intolerance but he does not exercise routinely. He has done some hunting [place] acres on a weekly basis over the last month or two and he says occasionally he will feel that he has some right buttock cramping. He is wondering if this is related to the antihypertensive. We discussed various risk factors of heart disease. His parents both of MIs in their 60's. He has always had a normal cholesterol. No family history of diabetes, and he has no excessive hunger, thirst, urination, or fatigue. No unusual weight loss. He does not exercise routinely. MEDICATIONS: Prinivil 10 mg one p.o. q.d. ADR/ALLERGIES: NONE. OBJECTIVE: VS: BP1: 140/86. BP2: Retaken by this examiner as 142/100. P: 72. Wt: 195.3 lb. Very pleasant gentleman. Well-developed, well-nourished. In no acute distress. Alert and oriented times three with positive affect. NECK: Supple. No JVD. LUNGS: Clear to auscultation throughout. No wheezes, rales, or rhonchi. CARDIOVASCULAR: S1, S2 rate and rhythm are regular without clicks, murmurs, or rubs. PMI nondisplaced. EXTREMITIES: No significant peripheral edema. Large, noninflamed, nontender right lower extremity varicosities that is associated with some mild nonpitting edema. ASSESSMENT: Hypertension. PLAN: We will increase his lisinopril from 10 mg to 20 mg. He will get some independent blood pressure readings. Will also get a BUN, creatinine, and electrolytes at this time for further evaluation of the aforementioned muscle cramping. He will follow-up with me in one month's time. TT: CT: [id number] C: DOCUMENT: [id number] ICE ASSOCIATE Conversion, [facility] - 12/04/2001 12:01 AM CDT Progress Notes signed by at 09/12/02 0001 Author: [facility] Conversion Service: (none) Author Type: (none) Filed: 11/09/10 0609 Note Time: 12/04/012016 Status: Signed Lead Instructor/Flight Attendant: Jacquelyn Colin IMPRESSION: Hypertension. Stable on Prinivil. Varicose veins on the right leg. SUBJECTIVE: Bryce is here today for follow up visit on his blood pressure. He has been doing okay with no new symptoms. No chest pain, shortness of breath, dizziness, palpitations, numbness, tingling, or weakness in the arms or legs. He has varicose veins in the right lower extremity with some localized swelling but not much. MEDICATIONS: Include Prinivil 10 mg once a day. ADR/ALLERGIES: NO KNOWN DRUG ALLERGIES. He does not smoke. He does not drink alcohol except for occasionally. Caffeine occasionally. OBJECTIVE: VS/GEN: BP: 136/82. P: 72. R: 16. Wt: 188 lb. HEENT: No abnormality detected. NECK: Supple. No lymphadenopathy. No carotid bruit. No thyromegaly. No JVD. LUNGS: Clear to auscultation. No wheezing, rhonchi, or crackles. CV: S1, S2 plus zero. No murmurs or gallops. EXTREMITIES: Right lower extremity shows big varicose veins with resultant slight swelling around it. Otherwise negative. ASSESSMENT: 1. Hypertension. Stable on Prinivil. 2. Varicose veins on the right leg. PLAN: 1. Refill Prinivil. Recent labwork a couple of months ago was in normal range, including BUN, creatinine, electrolytes, and UA. 2. Precautions regarding varicose veins discussed with the patient. Follow up care discussed. TT: CT: [id number] C: DOCUMENT: [id number] ICE ASSOCIATE Conversion, [facility] - 11/14/2000 12:01 AM CDT Progress Notes signed by at 09/12/022016 Author: Jacquelyn Conversion Service: (none) Author Type: (none) Filed: 11/08/10 2209 Note Time: 11/14/002016 Status: Signed Lead Instructor/Flight Attendant: Jacquelyn Colin IMPRESSION: Hypertension. Fatigue, rule out hypothyroidism. SUBJECTIVE: The patient is here today for followup visit for blood pressure. He has a history high blood pressure for a few years, and has been taking Prinivil 10 mg once a day. No other medical problems in the past, is not taking any other medication. No chest pain, shortness of breath, dizziness, palpations. No ankle swelling, urinary frequency, urgency, nocturia. Has been noting some fatigue for the last few months with some weight gain, about 10 pounds over the last few months. No constipation. IS NOT ALLERGIC TO ANY MEDICATION. Does not smoke, does not drink alcohol except for occasionally. Caffeine, none. Tries to watch his salt, kind of okay but not a whole lot. OBJECTIVE: BP: 130/85. P: 80. R: 14. Wt: 188 pounds. HEENT EXAMINATION: No abnormality detected. NECK: Supple, no lymphadenopathy. No carotid bruits, no thyromegaly, no JVD. LUNGS: Clear to auscultation. No wheezing, rhonchi, crackles. HEART: S1, S2 plus zero. No murmurs, no gallop. ABDOMEN: Soft, nontender, no organomegaly. Bowel sounds normal. EXTREMITIES: No edema, cyanosis, or clubbing. ASSESSMENT: 1. Hypertension, seems to be in fair control. Refill the Prinivil 10 mg once a day. Check BUN, creatinine, and electrolytes. 2. Fatigue, rule out hypothyroidism. Check TSH and blood sugar. PLAN: See assessment. [facility]:[id number] C: DOCUMENT: [id number] ICE ASSOCIATE documented in this encounter Plan of Treatment Not on filedocumented as of this encounter Procedures Procedure Name Priority Date/Time Associated Comments Diagnosis ELECTROLYTES (NA, K, Routine 05/29/2002 11:44 Res ults for this CL, BICARB) AM SERVICE ASSOCIATE procedure are i n the results section. LIPID PANEL AND Routine 05/29/2002 11:44 Results for this DIRECT LDL(IF NEEDED) AM SERVICE ASSOCIATE proced ure are in the results section. CREATININE / GFR Routine 05/29/2002 11:44 Results for this AM SERVICE ASSOCIATE procedure are i n the results section. BUN Routine 05/29/2002 11:44 Results for this AM SERVICE ASSOCIATE procedure are i n the results section. ELECTROLYTES (NA, K, Routine 11/14/2000 3:49 PM R esults for this CL, BICARB) CDT procedure are i n the results section. GLUCOSE Routine 11/14/2000 3:49 PM Results f or this CDT procedure are i n the results section. THYROID STIMULATING Routine 11/14/2000 3:49 PM Re sults for this HORMONE CDT procedure are i n the results section. CREATININE / GFR Routine 11/14/2000 3:49 PM Resul ts for this CDT procedure are i n the results section. BUN Routine 11/14/2000 3:49 PM Results f or this CDT procedure are i n the results section. documented in this encounter Results (ABNORMAL) Lipid Panel and Direct LDL(If Needed) (05/29/2002 11:44 AM SERVICE ASSOCIATE) Patholo gist Method Time Signature Length Of Fast 18.0 Hours HP CONVERSION Cholesterol/HDL 5.7 No normal [facility] CONVERSION Ratio Screen range Cholesterol 189 125 - 199 [facility] CONVERSION mg/dL HDL Cholesterol 33 (L) 40 - 60 [facility] CONVERSION mg/dL Triglycerides 152 0 - 199 [facility] CONVERSION mg/dL XCALC LDL 126 66 - 129 HP CONVERSION (Original mg/dL [place]) Comment: Specimen (Source) Anatomical Collection Method Collection Time Re ceived Time Location / / Volume Laterality 05/29/2002 11:44 AM SERVICE ASSOCIATE Hansa Lewis APRN, [employer] LAB_1 Performing Organization Address City/State/ZIP Code Phon e Number HP CONVERSION BUN (05/29/2002 11:44 AM SERVICE ASSOCIATE) P athologist Signature Blood Urea 19 5 - 26 [facility] CONVERSION Nitrogen mg/dL Specimen (Source) Anatomical Collection Method Collection Time Re ceived Time Location / / Volume Laterality 05/29/2002 11:44 AM SERVICE ASSOCIATE Hansa Lewis APRN, CNP LAB_1 Performing Organization Address City/State/ZIP Code Phon e Number HP CONVERSION Creatinine / GFR (05/29/2002 11:44 AM SERVICE ASSOCIATE) athologist Signature Creatinine 1.4 0.5 - 1.5 [facility] CONVERSION Serum mg/dL Specimen (Source) Anatomical Collection Method Collection Time Re ceived Time Location / / Volume Laterality 05/29/2002 11:44 AM SERVICE ASSOCIATE Hansa Lewis APRYARED Ma LAB_1 Performing Organization Address City/[facility]/ZIP Code Phon e Number HP CONVERSION Electrolytes (NA, K, CL, Bicarb) (05/29/2002 11:44 AM SERVICE ASSOCIATE) athologist Signature Sodium 141 137 - 147 [facility] CONVERSION meq/L Potassium 5.2 3.5 - 5.2 [facility] CONVERSION meq/L Chloride 103 98 - 110 [facility] CONVERSION meq/L Bicarbonate 27 23 - 33 [facility] CONVERSION mmol/L Specimen (Source) Anatomical Collection Method Collection Time Re ceived Time Location / / Volume Laterality 05/29/2002 11:44 AM SERVICE ASSOCIATE Hansa Lewis APRN, CNP LAB_1 Performing Organization Address City/[facility]/ZIP Code Phon e Number HP CONVERSION Electrolytes (NA, K, CL, Bicarb) (11/14/2000 3:49 PM CDT) athologist Signature Sodium 140 137 - 147 [facility] CONVERSION meq/L Potassium 4.7 3.5 - 5.2 HP CONVERSION meq/L Chloride 102 98 - 110 [facility] CONVERSION meq/L Bicarbonate 28 23 - 33 [facility] CONVERSION mmol/L Specimen (Source) Anatomical Collection Method Collection Time Re ceived Time Location / / Volume Laterality 11/14/2000 3:49 PM CDT Ir Radiologist Radiology LAB_1 Performing Organization Address City/State/ZIP Code Phon e Number HP CONVERSION BUN (11/14/2000 3:49 PM CDT) athologist Signature Blood Urea 18 5 - 26 [facility] CONVERSION Nitrogen mg/dL Specimen (Source) Anatomical Collection Method Collection Time Re ceived Time Location / / Volume Laterality 11/14/2000 3:49 PM CDT Ir Radiologist Radiology LAB_1 Performing Organization Address City/[facility] Phon e Number HP CONVERSION Creatinine / GFR (11/14/2000 3:49 PM CDT) athologist Signature Creatinine 1.5 0.5 - 1.5 HP CONVERSION Serum mg/dL Specimen (Source) Anatomical Collection Method Collection Time Re ceived Time Location / / Volume Laterality 11/14/2000 3:49 PM CDT Ir Radiologist Radiology LAB_1 Performing Organization Address City/[facility] Code Phon e Number HP CONVERSION Glucose (11/14/2000 3:49 PM CDT) athologist Signature Lab Glucose 92 60 - 109 HP CONVERSION mg/dL Specimen (Source) Anatomical Collection Method Collection Time Re ceived Time Location / / Volume Laterality 11/14/2000 3:49 PM CDT Ir Radiologist Radiology LAB_1 Performing Organization Address City/[facility] Phon e Number HP CONVERSION Thyroid Stimulating Hormone (11/14/2000 3:49 PM CDT) athologist Signature Thyroid 3.35 0.20 - HP CONVERSION Stimulating 5.50 Hormone uIU/mL Specimen (Source) Anatomical Collection Method Collection Time Re ceived Time Location / / Volume Laterality 11/14/2000 3:49 PM CDT Ir Radiologist Radiology LAB_1 Performing Organization Address [facility] Phon e Number HP CONVERSION documented in this encounter Visit Diagnoses Not on filedocumented in this encounter Care Teams Glass Unloading Equipment Tender Relationship Specialty Start Date End Date Hansa Lewis, DELMA, DEVELOPER PROVER MECHANICAL PCP - General 10/22/10 11/30/12 [address] [id number] documented as of this encounter
--- OUTSIDE RECORDS SUMMARY | 2022-04-16 08:14 | XMS_ITS | Encounter Summary ---
:1960 Author Organization [facility] Address [address] [place] [address] Care Team Providers Name Role Phone Hansa Lewis APRN, [facility] Primary Care Provider [phone] Encounter Details Date Type Department Care Team Description 06/13/2007 PN Conversion Only [facility] Hansa Lewis APRN, [address] [place] [address] [address] [facility] [place] [phone] (Wo rk) Social History Tobacco Use Types Packs/Day Years Used Date Smoking Tobacco: Never Assessed Sex Assigned at Date Recorded Not on file documented as of this encounter Plan of Treatment Not on filedocumented as of this encounter Procedures Procedure Name Priority Date/Time Associated Comments Diagnosis ELECTROLYTES (NA, K, Routine 06/13/2007 10:23 Res ults for this CL, BICARB) AM AIR BRUSH ARTIST procedure are i n the results section. GLUCOSE Routine 06/13/2007 10:23 Results for this AM AIR BRUSH ARTIST procedure are i n the results section. LIPID PANEL AND Routine 06/13/2007 10:23 Results for this DIRECT LDL(IF NEEDED) AM AIR BRUSH ARTIST proced ure are in the results section. CREATININE / GFR Routine 06/13/2007 10:23 Results for this AM AIR BRUSH ARTIST procedure are i n the results section. GT (GAMMA GT) Routine 06/13/2007 10:23 Results fo r this AM AIR BRUSH ARTIST procedure are i n the results section. HGB A1C Routine 06/13/2007 10:23 Results for this AM AIR BRUSH ARTIST procedure are i n the results section. ALT (SGPT) Routine 06/13/2007 10:23 Results for this AM AIR BRUSH ARTIST procedure are i n the results section. AST Routine 06/13/2007 10:23 Results for this AM AIR BRUSH ARTIST procedure are i n the results section. LD TOTAL (LDH) Routine 06/13/2007 10:23 Results f or this AM AIR BRUSH ARTIST procedure are i n the results section. BUN Routine 06/13/2007 10:23 Results for this AM AIR BRUSH ARTIST procedure are i n the results section. BILIRUBIN, TOTAL Routine 06/13/2007 10:23 Results for this AM AIR BRUSH ARTIST procedure are i n the results section. ALKALINE PHOSPHATASE, Routine 06/13/2007 10:23 Re sults for this TOTAL AM AIR BRUSH ARTIST procedure are i n the results section. ALBUMIN Routine 06/13/2007 10:23 Results for this AM AIR BRUSH ARTIST procedure are i n the results section. documented in this encounter Results Albumin (06/13/2007 10:23 AM AIR BRUSH ARTIST) P athologist Signature Albumin 4.6 3.4 - 5.0 HP CONVERSION g/dL Specimen (Source) Anatomical Collection Method Collection Time Re ceived Time Location / / Volume Laterality 06/13/2007 10:23 AM AIR BRUSH ARTIST Hansa Lewis APRN, CNP LAB_1 Performing Organization Address City/State/ZIP Code Phon e Number HP CONVERSION Alkaline Phosphatase, Total (06/13/2007 10:23 AM AIR BRUSH ARTIST) P athologist Signature Alk Phos 61 25 - 135 U/L HP CONVERSION Specimen (Source) Anatomical Collection Method Collection Time Re ceived Time Location / / Volume Laterality 06/13/2007 10:23 AM AIR BRUSH ARTIST Hansa Lewis APRN, CNP LAB_1 Performing Organization Address City/State/ZIP Code Phon e Number HP CONVERSION (ABNORMAL) ALT (SGPT) (06/13/2007 10:23 AM AIR BRUSH ARTIST) Patholo gist Method Time Signature Alanine 63 (H) 4 - 55 HP CONVERSION Aminotransferase U/L Specimen (Source) Anatomical Collection Method Collection Time Re ceived Time Location / / Volume Laterality 06/13/2007 10:23 AM AIR BRUSH ARTIST Hansa Lewis APRN, CNP LAB_1 Performing Organization Address City/[facility]/ZIP Code Phon e Number HP CONVERSION AST (06/13/2007 10:23 AM AIR BRUSH ARTIST) Patholo gist Method Time Signature Aspartate 32 0 - 45 HP CONVERSION Aminotransferase U/L Specimen (Source) Anatomical Collection Method Collection Time Re ceived Time Location / / Volume Laterality 06/13/2007 10:23 AM AIR BRUSH ARTIST Hansa Lewis APRN COMPUTER TECHNICIAN LAB_1 Performing Organization Address City/[facility]/ZIP Code Phon e Number HP CONVERSION Bilirubin, Total (06/13/2007 10:23 AM AIR BRUSH ARTIST) P athologist Signature Bilirubin Total 1.0 0.2 - 1.2 HP CONVERSION mg/dL Specimen (Source) Anatomical Collection Method Collection Time Re ceived Time Location / / Volume Laterality 06/13/2007 10:23 AM AIR BRUSH ARTIST Hansa Lewis APRYARED Ma LAB_1 Performing Organization Address [facility] Code Phon e Number HP CONVERSION BUN (06/13/2007 10:23 AM AIR BRUSH ARTIST) P athologist Signature Blood Urea 19 5 - 26 HP CONVERSION Nitrogen mg/dL Specimen (Source) Anatomical Collection Method Collection Time Re ceived Time Location / / Volume Laterality 06/13/2007 10:23 AM AIR BRUSH ARTIST Hansa Lewis APRYARED Ma LAB_1 Performing Organization Address City/[facility] Code Phon e Number HP CONVERSION (ABNORMAL) Creatinine / GFR (06/13/2007 10:23 AM AIR BRUSH ARTIST) Analysis Performed At Patho logist Time Signature Creatinine 1.5 (H) 0.4 - 1.3 HP CONVERSION Serum mg/dL Est GFR >60 >60 HP CONVERSION Am Est GFR Non-Afr 51 (L) >60 HP CONVERSION Am Comment: -Emirati and Nzf-Djhorar-Yqjlikx n reference range units: mL/min/1.73m2 Normal>60, moderate decrease 30 - 59, se alexia decrease 15 - 29, renal failure <15 mL/min/1.73 m2 Specimen (Source) Anatomical Collection Method Collection Time Re ceived Time Location / / Volume Laterality 06/13/2007 10:23 AM AIR BRUSH ARTIST Hansa Lewis APRYARED Ma LAB_1 Performing Organization Address City/[facility]/ZIP Code Phon e Number HP CONVERSION (ABNORMAL) Glucose (06/13/2007 10:23 AM AIR BRUSH ARTIST) P athologist Signature Length Of Fast 12.0 Hours HP CONVERSION Lab Glucose 118 (H) 60 - 100 HP CONVERSION mg/dL Specimen (Source) Anatomical Collection Method Collection Time Re ceived Time Location / / Volume Laterality 06/13/2007 10:23 AM AIR BRUSH ARTIST Hansa Lewis APRYARED Ma LAB_1 Performing Organization Address City/State/ZIP Code Phon e Number HP CONVERSION (ABNORMAL) LD Total (LDH) (06/13/2007 10:23 AM AIR BRUSH ARTIST) [facility] gist Method Time Signature Lactic Acid 190 (H) 90 - 180 HP CONVERSION Dehydrogenase U/L Specimen (Source) Anatomical Collection Method Collection Time Re ceived Time Location / / Volume Laterality 06/13/2007 10:23 AM AIR BRUSH ARTIST Hansa Lewis APRYARED Ma LAB_1 Performing Organization Address [facility]/ZIP Code Phon e Number HP CONVERSION Electrolytes (NA, K, CL, Bicarb) (06/13/2007 10:23 AM AIR BRUSH ARTIST) athologist Signature Sodium 141 137 - 147 HP CONVERSION mEq/L Potassium 4.9 3.5 - 5.2 HP CONVERSION mEq/L Chloride 109 98 - 110 HP CONVERSION mEq/L Bicarbonate 28 23 - 33 HP CONVERSION mmol/L Specimen (Source) Anatomical Collection Method Collection Time Re ceived Time Location / / Volume Laterality 06/13/2007 10:23 AM AIR BRUSH ARTIST Hansa Lewis APRYARED Ma LAB_1 Performing Organization Address City/[facility]/ZIP Code Phon e Number HP CONVERSION (ABNORMAL) Lipid Panel and Direct LDL(If Needed) (06/13/2007 10:23 AM AIR BRUSH ARTIST) [facility] gist Method Time Signature Length Of Fast 12.0 Hours HP CONVERSION Cholesterol/HDL 6.1 No normal HP CONVERSION Ratio Screen range Cholesterol 208 (H) <200 mg/dL HP CONVERSION HDL Cholesterol 34 (L) >40 mg/dL HP CONVERSION Triglycerides 147 0 - 149 HP CONVERSION mg/dL LDL Calculated 145 (H) 0 - 130 HP CONVERSION mg/dL Comment: Specimen (Source) Anatomical Collection Method Collection Time Re ceived Time Location / / Volume Laterality 06/13/2007 10:23 AM AIR BRUSH ARTIST Hansa Lewis APRYARED Ma LAB_1 Performing Organization Address City/[facility]/ZIP Code Phon e Number HP CONVERSION GT (Gamma GT) (06/13/2007 10:23 AM AIR BRUSH ARTIST) P athologist Signature Gamma-Glutamyl 37 1 - 48 U/L HP CONVERSION Transferase Specimen (Source) Anatomical Collection Method Collection Time Re ceived Time Location / / Volume Laterality 06/13/2007 10:23 AM AIR BRUSH ARTIST Hansa Lewis APRN, CNP LAB_1 Performing Organization Address [facility] Phon e Number HP CONVERSION Hgb A1c (06/13/2007 10:23 AM AIR BRUSH ARTIST) athologist Signature HGB A1C 6.0 <6.0 % HP CONVERSION Specimen (Source) Anatomical Collection Method Collection Time Re ceived Time Location / / Volume Laterality 06/13/2007 10:23 AM AIR BRUSH ARTIST Hansa Lewis APRN, CNP LAB_1 Performing Organization Address [facility] Phon e Number HP CONVERSION documented in this encounter Visit Diagnoses Not on filedocumented in this encounter Care Teams Video Production Specialist Relationship Specialty Start Date End Date Hansa Lewis APRN, CNP PCP - General 10/22/10 11/30/12 [address] [id number] documented as of this encounter
--- OUTSIDE RECORDS SUMMARY | 2022-04-16 08:14 | XMS_ITS | Encounter Summary ---
:1960 Author Organization [employer] Address [address] [place] [address] Care Team Providers Name Role Phone Hansa Lewis APRN, [facility] Primary Care Provider [phone] Encounter Details Date Type Department Care Team Description 06/05/2005 PN Conversion Only [place] Hansa Lewis APRN, [address] [place] [address] [facility] [address] [place] [phone] (Wo rk) Social History Tobacco Use Types Packs/Day Years Used Date Smoking Tobacco: Never Assessed Sex Assigned at Date Recorded Not on file documented as of this encounter Plan of Treatment Not on filedocumented as of this encounter Procedures Procedure Name Priority Date/Time Associated Comments Diagnosis ELECTROLYTES (NA, K, Routine 06/05/2005 4:45 PM R esults for this CL, BICARB) FORM SETTER STEEL FORMS procedure are i n the results section. GLUCOSE Routine 06/05/2005 4:45 PM Results f or this FORM SETTER STEEL FORMS procedure are i n the results section. LIPID PANEL AND Routine 06/05/2005 4:45 PM Result s for this DIRECT LDL(IF NEEDED) FORM SETTER STEEL FORMS proced ure are in the results section. CREATININE / GFR Routine 06/05/2005 4:45 PM Resul ts for this FORM SETTER STEEL FORMS procedure are i n the results section. COMPLETE BLOOD Routine 06/05/2005 4:45 PM Results for this COUNT-W/DIFF FORM SETTER STEEL FORMS procedure are i n the results section. BUN Routine 06/05/2005 4:45 PM Results f or this FORM SETTER STEEL FORMS procedure are i n the results section. documented in this encounter Results Complete Blood Count-W/Diff (06/05/2005 4:45 PM FORM SETTER STEEL FORMS) [facility] gist Method Time Signature White Blood Cell 9.1 3.8 - 11.0 HP CONVERSIO N Count K/cmm Red Blood Cell 5.31 4.20 - HP CONVERSION Count 5.90 m/cmm Hemoglobin 15.8 13.4 - HP CONVERSION 17.5 gm/dL Hematocrit 47.6 39.0 - HP CONVERSION 51.0 % Mean Corpuscular 89.7 80.0 - HP CONVERSION Volume 100.0 fl Mean Corpuscular 29.8 27.0 - HP CONVERSION Hemoglobin 34.0 pg Mean Corpuscular 33.2 32.0 - HP CONVERSION Hemoglobin Conc 36.5 gm/dL Zachary RDW 12.2 11.0 - HP CONVERSION 15.0 % Platelet Count 375 140 - 450 HP CONVERSION k/cmm Differential Auto-Dif No normal HP CONVERSION Verify range Neutrophils 6.1 2.0 - 7.5 HP CONVERSION Absolute Count K/cmm Neutrophil 67.6 50.0 - HP CONVERSION 75.0 % Lymphocyte % 22.8 20.0 - HP CONVERSION 40.0 % Monocyte 7.0 5.0 - 14.0 HP CONVERSION % Eosinophil 1.7 0.0 - 6.0 HP CONVERSION % Basophil % 0.9 0.0 - 2.0 HP CONVERSION % Specimen (Source) Anatomical Collection Method Collection Time Re ceived Time Location / / Volume Laterality 06/05/2005 4:45 PM FORM SETTER STEEL FORMS Hansa Joshua NGUYỄN CNP LAB_1 Performing Organization Address City/State/ZIP Code Phon e Number HP CONVERSION BUN (06/05/2005 4:45 PM FORM SETTER STEEL FORMS) athologist Signature Blood Urea 17 5 - 26 HP CONVERSION Nitrogen mg/dL Specimen (Source) Anatomical Collection Method Collection Time Re ceived Time Location / / Volume Laterality 06/05/2005 4:45 PM FORM SETTER STEEL FORMS Hansa Lewis YARED NGUYỄN LAB_1 Performing Organization Address City/State/ZIP Code Phon e Number HP CONVERSION Creatinine / GFR (06/05/2005 4:45 PM FORM SETTER STEEL FORMS) athologist Signature Creatinine 1.4 0.5 - 1.5 HP CONVERSION Serum mg/dL Specimen (Source) Anatomical Collection Method Collection Time Re ceived Time Location / / Volume Laterality 06/05/2005 4:45 PM FORM SETTER STEEL FORMS Hansa Lewis APRN, CNP LAB_1 Performing Organization Address [facility] Phon e Number HP CONVERSION Glucose (06/05/2005 4:45 PM FORM SETTER STEEL FORMS) athologist Signature Lab Glucose 86 60 - 100 HP CONVERSION mg/dL Specimen (Source) Anatomical Collection Method Collection Time Re ceived Time Location / / Volume Laterality 06/05/2005 4:45 PM FORM SETTER STEEL FORMS Hansa Lewis APRN, CNP LAB_1 Performing Organization Address [facility] Phon e Number HP CONVERSION (ABNORMAL) Electrolytes (NA, K, CL, Bicarb) (06/05/2005 4:45 PM FORM SETTER STEEL FORMS) athologist Signature Sodium 134 (L) 137 - 147 HP CONVERSION meq/L Potassium 3.8 3.5 - 5.2 HP CONVERSION meq/L Chloride 99 98 - 110 HP CONVERSION meq/L Bicarbonate 22 (L) 23 - 33 HP CONVERSION mmol/L Specimen (Source) Anatomical Collection Method Collection Time Re ceived Time Location / / Volume Laterality 06/05/2005 4:45 PM FORM SETTER STEEL FORMS Hansa Lewis APRN ARTS AND CRAFTS INSTRUCTOR LAB_1 Performing Organization Address [facility] Phon e Number HP CONVERSION (ABNORMAL) Lipid Panel and Direct LDL(If Needed) (06/05/2005 4:45 PM FORM SETTER STEEL FORMS) [facility] Method Time Signature Cholesterol/HDL 6.9 No normal HP CONVERSION Ratio Screen range Cholesterol 213 (H) <200 mg/dL HP CONVERSION HDL Cholesterol 31 (L) 40 - 60 HP CONVERSION mg/dL Triglycerides 199 (H) 0 - 149 HP CONVERSION mg/dL LDL Calculated 142 (H) 0 - 130 HP CONVERSION mg/dL Comment: Specimen (Source) Anatomical Collection Method Collection Time Re ceived Time Location / / Volume Laterality 06/05/2005 4:45 PM FORM SETTER STEEL FORMS Hansa Lewis APRN, CNP LAB_1 Performing Organization Address [facility] Phon e Number HP CONVERSION documented in this encounter Visit Diagnoses Not on filedocumented in this encounter Care Teams Auditing Specialist Relationship Specialty Start Date End Date Hansa Lewis APRN, ARTS AND CRAFTS INSTRUCTOR PCP - General 10/22/10 11/30/12 [address] [place] [id number] documented as of this encounter
--- OUTSIDE RECORDS SUMMARY | 2022-04-16 08:14 | XMS_ITS | Encounter Summary ---
:1960 Author Organization [facility] Address [address] [place] [address] Care Team Providers Name Role Phone Hansa Lewis APRN, CNP Primary Care Provider [phone] Encounter Details Date Type Department Care Team Description 11/12/2002 PN Conversion Only [place] [facility] Hansa Lewis APRN, [address] [facility] [place] [address] [address] [facility] [address] [place] [phone] (Wo rk) Social History Tobacco Use Types Packs/Day Years Used Date Smoking Tobacco: Never Assessed Sex Assigned at Date Recorded Not on file documented as of this encounter Plan of Treatment Not on filedocumented as of this encounter Visit Diagnoses Not on filedocumented in this encounter Care Teams Passenger Car Conductor Relationship Specialty Start Date End Date Hansa Lewis APRN, CNP PCP - General 10/22/10 11/30/12 [address] [place] [id number] documented as of this encounter
--- OUTSIDE RECORDS SUMMARY | 2022-04-16 08:14 | XMS_ITS | Encounter Summary ---
:1960 Author Organization [facility] Address [address] [address] Care Team Providers Name Role Phone Hansa Lewis APRN, CNP Primary Care Provider [phone] Reason for Visit Reason Comments Other Encounter Details Date Type Department Care Team Description 06/03/2007 Telephone [facility], Message Other [address] [place], [place] [address] Social History Tobacco Use Types Packs/Day Years Used Date Smoking Tobacco: Never Assessed Sex Assigned at Date Recorded Not on file documented as of this encounter [facility], Message - 06/03/2007 8:15 AM CST Phone Note filed by [employer] at 11/08/10816 Author: [employer] Service: (none) Author Type: (none) Filed: 11/08/10816 Note Time: 06/03/07814 Status: Signed Strain Technician: [employer] Prescription Refill Please provide enough refills to last until patient's next visit. Comment:-Appt on ([facility]) Pharmacy Seq #:-[phone] Pharmacy Name:-[facility] Street or City:-[place] Clinician Name:-Joshua Drug Name/Strength:-Omeprazole 20mg caps. Sig: Dose/Route/Freq:-Take 1 capsule daily. Quantity & Last Fill:- 06/02/07 Created on 03Jun2007 8:15am by BRIGIDA LEE J On 03Jun2007 11:19am REID MACIAS wrote: Renewed medication per medication refill protocol. POINTER documented in this encounter Plan of Treatment Not on filedocumented as of this encounter Visit Diagnoses Not on filedocumented in this encounter Care Teams Solderer Dipper Relationship Specialty Start Date End Date Hansa Lewis APRN, PRODUCTION HELPER PCP - General 10/22/10 11/30/12 [address] [place] [id number] documented as of this encounter
--- OUTSIDE RECORDS SUMMARY | 2022-04-16 08:14 | XMS_ITS | Encounter Summary ---
:1960 Author Organization [employer] Address [address] [place] [address] Care Team Providers Name Role Phone Unassigned, Provider Primary Care Provider Unavailable Encounter Details Date Type Department Care Team Description 07/13/2003 Hospital Encounter ROMAN CATHOLIC CONVERSION Hansa Lewis, SALES REPRESENTATIVES, AGRICULTURAL SERVICE TECHNICIAN [address] [place], [place] [phone] (Wo rk) Social History Tobacco Use Types Packs/Day Years Used Date Smoking Tobacco: Never Assessed Sex Assigned at Date Recorded Not on file documented as of this encounter Plan of Treatment Not on filedocumented as of this encounter Procedures Procedure Name Priority Date/Time Associated Diagnosis Comme nts US LOWER EXTREMITY Routine 07/13/2003 6:23 PM Res ults for this RT VENOUS DOPPLER VEHICLE SERVICE ATTENDANT procedure are in the results section. documented in this encounter Results US VENOUS RIGHT LOWER EXTREM DOPPLER (07/13/2003 6:23 PM VEHICLE SERVICE ATTENDANT) Anatomical Region Laterality Modality Vascular, Leg Other Specimen (Source) Anatomical Location Collection Method / Collectio n Time Received Time / Laterality Volume Narrative 07/13/2003 6:23 PM VEHICLE SERVICE ATTENDANT INDICATION: ??Superficial thrombosis. ??Rule out deep vein thromboses. The deep venous system of the right lowe r extremity was visualized with the use of color flow Doppler techn ique. The common femoral, superficial femoral, popliteal, peroneal, anterior tibial, posterior tibial deep v eins all showed normal compressibility, color flow, and respons e to augmentation. ??The patient had fairly extensive superficial varicosities especially below the knee which were partially comp ressible with no obvious evidence of thrombosis. ASSESSMENT: ? 1. ?? Right ?lower extremi ty negative for evidence of deep vein thromboses. ? 2. ?? Superficial ?varicos e veins with no obvious evidence of thrombosis on ultrasound. ??Apparently t he patient has clinical symptoms of superficial thrombosis in [facility] region and will be treated locally for this by care provider. [phone] Dictating JOSE A MEDINA MD Procedure Note Jose A Stanley - 09/22/2016 INDICATION: Superficial thrombosis. Rule out deep vein thromboses. The deep venous system of the right lowe r extremity was visualized with the use of color flow Doppler techn ique. The common femoral, superficial femoral, popliteal, peroneal, anterior tibial, posterior tibial deep v eins all showed normal compressibility, color flow, and respons e to augmentation. The patient had fairly extensive superficial varicosities especially below the knee which were partially comp ressible with no obvious evidence of thrombosis. ASSESSMENT: 1. Right lower extremity negative for e vidence of deep vein thromboses. 2. Superficial varicose veins with no o bvious evidence of thrombosis on ultrasound. Apparently the patient has clinical symptoms of superficial thrombosis in [facility] region and will be treated locally for this by care provider. ([phone] - [phone] Dictating JOSE A MEDINA MD YARED Jama APRN US documented in this encounter Visit Diagnoses Not on filedocumented in this encounter Care Teams Freight Team Associate Relationship Specialty Start Date End Date Unassigned, Provider PCP - General 06/29/00 10/21/[address] [place] [address] documented as of this encounter
--- OUTSIDE RECORDS SUMMARY | 2022-04-16 08:15 | XMS_ITS | Encounter Summary ---
:1960 Author Organization [facility] Address [address] [place] [address] Care Team Providers Name Role Phone Unavailable Primary Care Provider Unavailable Reason for Visit Appointment Request (Routine) - Closed Specialty Diagnoses / Procedures Referred By Contact Refer red To Contact Nephrology and Hypertension Referral ID Status Reason Start Date Expiration Date Visits Requ ested Visits Authorized [id number] Closed 11/04/2020 11/04/2021 1 1 Encounter Details Date Type Department Care Team Description 01/04/2021 External Outreach Division of Amy Ryan dney Disease (CKD), Stage 3a Glomerular Filtration Rate (GFR) 45 To 59 (HCC) (Primary Dx); Nephrology and Alex Jolly Jr., Osteodystrop hy Renal; Hypertension in D.O. Diabetes Mellitus Type 2 (HCC); [place], [place] [address] [facility] Hyperlipidemia Mixed; [address] [place], [place]pert[place] [address] [phone] Social History Tobacco Use Types Packs/Day Years Used Date Smoking Tobacco: Never Assessed Sex Assigned at Date Recorded Not on file documented as of this encounter Progress Notes Alex Ryan Jr., D.O. - 01/04/2021 3:00 PM CDT Please see scanned in note under document viewer tab for the [facility] outreach visit from this date. documented in this encounter Plan of Treatment Not on filedocumented as of this encounter Visit Diagnoses Diagnosis Chronic Kidney Disease (CKD), Stage 3a G lomerular Filtration Rate (GFR) 45 To 59 (HCC) - Primary Osteodystrophy Renal Diabetes Mellitus Type 2 (HCC) Hyperlipidemia Mixed Hypertension Essential Primary documented in this encounter
--- OUTSIDE RECORDS SUMMARY | 2022-04-16 08:15 | XMS_ITS | Encounter Summary ---
:1960 Author Organization [facility] Address [address] [place] [address] Care Team Providers Name Role Phone Unavailable Primary Care Provider Unavailable Reason for Visit Appointment Request (Routine) - Closed Specialty Diagnoses / Procedures Referred By Contact Refer red To Contact Nephrology and Hypertension Referral ID Status Reason Start Date Expiration Date Visits Requ ested Visits Authorized [id number] Closed 06/09/2020 06/09/2021 1 1 Encounter Details Date Type Department Care Team Description 07/04/2020 External Outreach Division of Amy Ryan Ki dney Disease (CKD), Stage 3a Glomerular Filtration Rate (GFR) 45 To 59 (HCC) (Primary Dx); Nephrology and Alex Jolly Jr., Osteodystrop hy Renal; Hypertension in D.O. Diabetes Mellitus Type 2 (HCC); [place], [place] [address] [facility] Hyperlipidemia Mixed; [address] [place], [place] [address] [phone] Social History Tobacco Use Types Packs/Day Years Used Date Smoking Tobacco: Never Assessed Sex Assigned at Date Recorded Not on file documented as of this encounter Progress Notes Alex Ryan Jr., D.O. - 07/04/2020 2:00 PM CST Please see scanned in note under document viewer tab for the [facility] outreach visit from this date. EFFICIENT AIRCRAFT DESIGNER documented in this encounter Plan of Treatment Not on filedocumented as of this encounter Visit Diagnoses Diagnosis Chronic Kidney Disease (CKD), Stage 3a G lomerular Filtration Rate (GFR) 45 To 59 (HCC) - Primary Osteodystrophy Renal Diabetes Mellitus Type 2 (HCC) Hyperlipidemia Mixed Hypertension Essential Primary documented in this encounter
--- OUTSIDE RECORDS SUMMARY | 2022-04-16 08:15 | XMS_ITS | Encounter Summary ---
:1960 [facility] Address [address], [place] [address] Care Team Providers Name Role Phone Unavailable Primary Care Provider Unavailable Encounter Details Date Type Department Care Team Description 12/10/1995 - Hospital Encounter Hinduism Radiology Arnulfo Monterroso MD [address] [place] [address] 12/11/[address] Arnulfo Monterroso MD [address] [place] [address] [place] [address] Social History Tobacco Use Types Packs/Day Years Used Date Smoking Tobacco: Never Assessed Sex Assigned at Date Recorded Not on file documented as of this encounter Plan of Treatment Not on filedocumented as of this encounter Procedures Procedure Name Priority Date/Time Associated Comments Diagnosis FL IVP ROUTINE WITH Routine 12/10/1995 7:43 AM Re sults for this NEPHROTOMOGRAM CDT procedure are in the results section. documented in this encounter Results FL IVP Routine With Nephrotomogram (12/10/1995 7:43 AM CDT) Anatomical Region Laterality Modality Abdomen, Pelvis Other Specimen (Source) Anatomical Location Collection Method / Collectio n Time Received Time / Laterality Volume Narrative 12/10/1995 7:43 AM CDT Preliminary film reveals no abnormalities. Following the administration of 100 cc's of Conray 60%, there are bilateral nephrograms and the kidneys ar e normal in size, shape and position. ??The pelvocalyceal systems ap pear normal. ??The bladder may be slightly elevated by the prostate but otherwise appears normal and there is minimal post void residual. CONCLUSION: ??Essentially normal IVP . Procedure Note Jasen Lopez MD - 09/28/2016Forma tting of this note might be different from the original. Preliminary film reveals no abnormalitie s. Following the administration of 100 cc's of Conray 60%, there are bilateral nephrograms and the kidneys ar e normal in size, shape and position. The pelvocalyceal systems appe ar normal. The bladder may be slightly elevated by the prostate but otherwise appears normal and there is minimal post void residual. CONCLUSION: Essentially normal IVP . Arnulfo Monterroso MD RAD FL documented in this encounter Visit Diagnoses Not on filedocumented in this encounter
--- OUTSIDE RECORDS SUMMARY | 2022-04-16 08:15 | XMS_ITS | Encounter Summary ---
:1960 Author [facility] Address [address], [place] [address] Care Team Providers Name Role Phone Hansa Lewis APRN, CNP Primary Care Provider [phone] Encounter Details Date Type Department Care Team Description 09/06/1995 PN Conversion Only JUDAISM CONVERSION Jessica Monterroso MD [address] [facility] [address] [place], [place] [address] (Wo rk) Social History Tobacco Use Types Packs/Day Years Used Date Smoking Tobacco: Never Assessed Sex Assigned at Date Recorded Not on file documented as of this encounter Plan of Treatment Not on filedocumented as of this encounter Visit Diagnoses Not on filedocumented in this encounter Care Teams Signals Intelligence Superintendent Relationship Specialty Start Date End Date Hansa Lewis APRN, CNP PCP - General 10/22/10 11/30/12 [id number] [id number] documented as of this encounter
--- OUTSIDE RECORDS SUMMARY | 2022-04-16 08:15 | XMS_ITS | Encounter Summary ---
:1960 Author Organization [facility] Address [address] [place] [address] Care Team Providers Name Role Phone Unavailable Primary Care Provider Unavailable Encounter Details Date Type Department Care Team Description 09/09/1995 - Hospital Encounter CONFUCIANISM CONVERSION Arnulfo Monterroso, 09/10/1995 [address] [facility] [address] [place], [place] [address] Social History Tobacco Use Types Packs/Day Years Used Date Smoking Tobacco: Never Assessed Sex Assigned at Date Recorded Not on file documented as of this encounter Plan of Treatment Not on filedocumented as of this encounter Procedures Procedure Name Priority Date/Time Associated Comments Diagnosis ANC RESULT Discharge 09/09/1995 7:29 Results for this CONVERSION DEFAULT Decision AM GEOSPATIAL SPECIALIST procedure are in ORDER the results section. documented in this encounter Results Anc Result Conversion Default Order (09/09/1995 7:29 AM GEOSPATIAL SPECIALIST) Anatomical Region Laterality Modality Other Specimen (Source) Anatomical Location Collection Method / Collectio n Time Received Time / Laterality Volume Impressions 09/09/1995 7:29 AM GEOSPATIAL SPECIALIST : Normal bilateral renal flow and functi on. ??. Narrative 09/09/1995 7:29 AM GEOSPATIAL SPECIALIST DOSE: ??10.9 mCi Tc 99m MAG-3, Lot #[id number]. FINDINGS: There is prompt symmetric mady l flow. ??Both kidneys demonstrate normal uptake and excretion on the static images with no evidence of obstruction identified. Procedure Note Al Valverde MD - 09/28/2016Format ting of this note might be different from the original. DOSE: 10.9 mCi Tc 99m MAG-3, Lot #[id number] . FINDINGS: There is prompt symmetric mady l flow. Both kidneys demonstrate normal uptake and excretion on the static images with no evidence of obstruction identified. IMPRESSION : Normal bilateral renal flow and functi on. . Arnulfo Monterroso MD RAD GD documented in this encounter Visit Diagnoses Not on filedocumented in this encounter
--- OUTSIDE RECORDS SUMMARY | 2022-04-16 08:15 | XMS_ITS | Encounter Summary ---
:1960 Author Organization [facility] Address [address] [place] [address] Care Team Providers Name Role Phone Hansa Lewis APRN, CNP Primary Care Provider [phone] Encounter Details Date Type Department Care Team Description 10/21/2002 PN Conversion Only [place] [facility] [address] Hansa Lewis APRN, [address] [place] [address] [facility] [address] [facility] [address] (Wo rk) Social History Tobacco Use Types Packs/Day Years Used Date Smoking Tobacco: Never Assessed Sex Assigned at Date Recorded Not on file documented as of this encounter Plan of Treatment Not on filedocumented as of this encounter Procedures Procedure Name Priority Date/Time Associated Diagnosis Comme nts CREATININE / GFR Routine 10/21/2002 5:03 PM Resul ts for this ANALYTICS ARCHITECT procedure are i n the results section. POTASSIUM Routine 10/21/2002 5:03 PM Results f or this ANALYTICS ARCHITECT procedure are i n the results section. BUN Routine 10/21/2002 5:03 PM Results f or this ANALYTICS ARCHITECT procedure are i n the results section. documented in this encounter Results BUN (10/21/2002 5:03 PM ANALYTICS ARCHITECT) P athologist Signature Blood Urea 21 5 - 26 HP CONVERSION Nitrogen mg/dL Specimen (Source) Anatomical Collection Method Collection Time Re ceived Time Location / / Volume Laterality 10/21/2002 5:03 PM ANALYTICS ARCHITECT Hansa Lewis APRN, CNP LAB_1 Performing Organization Address City/[facility] Phon e Number HP CONVERSION (ABNORMAL) Creatinine / GFR (10/21/2002 5:03 PM ANALYTICS ARCHITECT) Analysis Performed At Patho logist Time Signature Creatinine 1.6 (H) 0.5 - 1.5 HP CONVERSION Serum mg/dL Specimen (Source) Anatomical Collection Method Collection Time Re ceived Time Location / / Volume Laterality 10/21/2002 5:03 PM ANALYTICS ARCHITECT Hansa Lewis APRN, CNP LAB_1 Performing Organization Address [facility] Phon e Number HP CONVERSION Potassium (10/21/2002 5:03 PM ANALYTICS ARCHITECT) P athologist Signature Potassium 5.0 3.5 - 5.2 HP CONVERSION meq/L Specimen (Source) Anatomical Collection Method Collection Time Re ceived Time Location / / Volume Laterality 10/21/2002 5:03 PM ANALYTICS ARCHITECT Hansa Lewis APRN, CNP LAB_1 Performing Organization Address [facility] Phon e Number HP CONVERSION documented in this encounter Visit Diagnoses Not on filedocumented in this encounter Care Teams Facilities And Grounds Director Relationship Specialty Start Date End Date Hansa Lewis APRN, CNP PCP - General 10/22/10 11/30/12 [address] [place] [address] documented as of this encounter
--- OUTSIDE RECORDS SUMMARY | 2022-04-16 08:15 | XMS_ITS | Encounter Summary ---
:1960 [facility] Address [address] [address] Care Team Providers Name Role Phone Hansa Lewis DELMA, DISPATCHER MAINTENANCE SERVICE Primary Care Provider [phone] Encounter Details Date Type Department Care Team Description 09/06/1995 PN Conversion Only PROTESTANT CONVERSION Jessica Monterroso MD [address] [facility] [address] [place], [place] [address] (Wo rk) Social History Tobacco Use Types Packs/Day Years Used Date Smoking Tobacco: Never Assessed Sex Assigned at Date Recorded Not on file documented as of this encounter Plan of Treatment Not on filedocumented as of this encounter Procedures Procedure Name Priority Date/Time Associated Comments Diagnosis CONVERSION DEFAULT Routine 09/06/1995 4:56 PM Res ults for this INTERFACE ORDER ASSEMBLER FOR PULLER OVER HAND procedure ar e in the results section. CONVERSION DEFAULT Routine 09/06/1995 4:56 PM Res ults for this INTERFACE ORDER ASSEMBLER FOR PULLER OVER HAND procedure ar e in the results section. CONVERSION DEFAULT Routine 09/06/1995 4:56 PM Res ults for this INTERFACE ORDER ASSEMBLER FOR PULLER OVER HAND procedure ar e in the results section. documented in this encounter Results (ABNORMAL) Conversion Default Interface Order (09/06/1995 4:56 PM ASSEMBLER FOR PULLER OVER HAND) [facility] Method Time Signature Lab Glucose 99 60 HP CONVERSION 110MG/D L Blood Urea 20 5 26MG/D HP CONVERSION Nitrogen L Creatinine Serum 1.3 0.5 HP CONVERSION 1.5MG/D L Bun/Creatinine 15.4 10.0 20.0 HP CONVERSION Ratio Sodium 142 137 HP CONVERSION 147MEQ/ L Potassium 5.1 3.5 HP CONVERSION 5.2MEQ/ L Chloride 104 98 HP CONVERSION 108MEQ/ L Calcium 9.9 8.5 HP CONVERSION 10.5MG/D L Phosphorus Serum 2.8 2.5 HP CONVERSION 4.5MG/D L Cholesterol 209 (HH) 125 HP CONVERSION 199MG/D L Comment: NCEP guidelines for blood Total Cholest enrico: ? <200 mg/dl ? Desirable tot al cholesterol. ? 200-239 mg/dl ?Borderline - h igh risk for coronary heart disease. ? 240 and over ? High risk for coronary heart disease. Triglycerides 168 30 250MG/D L HP CONVERSION Cholesterol/Triglycerides Ratio 1.2 HP CONVERSION Protein Total, Serum 7.3 5.7 8.3GM/D L HP CO NVERSION Albumin 4.0 3.0 5.0G/DL HP CONVERSION Globulin Serum 3.3 1.8 3.9GM/D L HP CONVERSI ON Alk Phos 67 30 115U/L HP CONVERSION Bilirubin Total 1.1 0.2 1.2MG/D L HP CONVERS ION Gamma-Glutamyl Transferase 24 0 65U/L HP CONVERSION Aspartate Aminotransferase 25 0 45U/L HP CONVERSION Lactic Acid Dehydrogenase 129 80 225U/L HP C ONVERSION Uric Acid Serum 7.2 2.5 8.5MG/D L HP CONVERS ION Specimen (Source) Anatomical Collection Method Collection Time Re ceived Time Location / / Volume Laterality 09/06/1995 4:56 PM ASSEMBLER FOR PULLER OVER HAND Arnulfo Monterroso MD LAB_1 Performing Organization Address City/State/ZIP Code Phon e Number HP CONVERSION Conversion Default Interface Order (09/06/1995 4:56 PM ASSEMBLER FOR PULLER OVER HAND) P athologist Signature HDL Cholesterol 32 30 70MG/D HP CONVERSION L Comment: NCEP guidelines for blood HDL cholester ol: ?< 35 mg/dl High risk for coronary heart disease. ?> 60 mg/dl Negative risk factor, d ecreased risk for coronary heart disease. Specimen (Source) Anatomical Collection Method Collection Time Re ceived Time Location / / Volume Laterality 09/06/1995 4:56 PM ASSEMBLER FOR PULLER OVER HAND Arnulfo Monterroso MD LAB_1 Performing Organization Address City/State/[facility] Phon e Number HP CONVERSION Conversion Default Interface Order (09/06/1995 4:56 PM ASSEMBLER FOR PULLER OVER HAND) P athologist Signature LDL Calculated 150 77 161MG/D HP CONVERSION L Comment: NCEP guidelines for blood LDL cholester ol: ? > 160 mg/dl ?High risk for co ronary heart disease. ? 130-159 mg/dl ??Borderline risk f or coronary heart disease. ? < 130 mg/dl ?Desirable LDL ch olesterol. Specimen (Source) Anatomical Collection Method Collection Time Re ceived Time Location / / Volume Laterality 09/06/1995 4:56 PM ASSEMBLER FOR PULLER OVER HAND Arnulfo Monterroso MD LAB_1 Performing Organization Address City/[facility] Phon e Number HP CONVERSION documented in this encounter Visit Diagnoses Not on filedocumented in this encounter Care Teams Hazmat Cdl Driver Relationship Specialty Start Date End Date Hansa Lewis, OUTBOARD MOTOR TESTER, DISPATCHER MAINTENANCE SERVICE PCP - General 10/22/10 11/30/[id number] [place] [address] documented as of this encounter
--- OUTSIDE RECORDS SUMMARY | 2022-04-16 08:15 | XMS_ITS | Encounter Summary ---
:1960 Author [facility] Address [address], [place] [address] Care Team Providers Name Role Phone Hansa Lewis DELMA, TRANSFORMATION CONSULTANT Primary Care Provider [phone] Encounter Details Date Type Department Care Team Description 11/06/1996 PN Conversion Only DRUZE CONVERSION Jessica Monterroso MD [address] [facility] [address] [place], [place] [address] (Wo rk) Social History Tobacco Use Types Packs/Day Years Used Date Smoking Tobacco: Never Assessed Sex Assigned at Date Recorded Not on file documented as of this encounter Plan of Treatment Not on filedocumented as of this encounter Procedures Procedure Name Priority Date/Time Associated Comments Diagnosis CONVERSION DEFAULT Routine 11/06/1996 4:41 PM Res ults for this INTERFACE ORDER CDT procedure ar e in the results section. CONVERSION DEFAULT Routine 11/06/1996 4:41 PM Res ults for this INTERFACE ORDER CDT procedure ar e in the results section. documented in this encounter Results Conversion Default Interface Order (11/06/1996 4:41 PM CDT) P athologist Signature Blood Urea 18 5 26MG/D L HP CONVERSION Nitrogen Creatinine 1.2 0.5 HP CONVERSION Serum 1.5MG/D L Sodium 142 137 HP CONVERSION 147MEQ/ L Potassium 5.1 3.5 HP CONVERSION 5.2MEQ/ L Uric Acid Serum 7.0 2.5 HP CONVERSION 8.5MG/D L Specimen (Source) Anatomical Collection Method Collection Time Re ceived Time Location / / Volume Laterality 11/06/1996 4:41 PM CDT Arnulfo Monterroso MD LAB_1 Performing Organization Address City/State/ZIP Code Phon e Number HP CONVERSION Conversion Default Interface Order (11/06/1996 4:41 PM CDT) athologist Signature Magnesium 2.3 1.8 2.4MG/D HP CONVERSION L Specimen (Source) Anatomical Collection Method Collection Time Re ceived Time Location / / Volume Laterality 11/06/1996 4:41 PM CDT Arnulfo Monterroso MD LAB_1 Performing Organization Address City/[facility] Phon e Number HP CONVERSION documented in this encounter Visit Diagnoses Not on filedocumented in this encounter Care Teams Film Developer Relationship Specialty Start Date End Date Hansa Lewis APRN, TRANSFORMATION CONSULTANT PCP - General 10/22/10 11/30/[id number] [place] [address] documented as of this encounter
--- OUTSIDE RECORDS SUMMARY | 2022-04-16 08:15 | XMS_ITS | Encounter Summary ---
:1960 Author Organization [facility] Address [address] [place] [address] Care Team Providers Name Role Phone Unavailable Primary Care Provider Unavailable Reason for Visit Appointment Request (Routine) - Closed Specialty Diagnoses / Procedures Referred By Contact Refer red To Contact Nephrology and Hypertension Referral ID Status Reason Start Date Expiration Date Visits Requ ested Visits Authorized [id number] Closed 02/02/2022 02/02/2023 1 Encounter Details Date Type Department Care Team Description 02/27/2022 External Outreach Division of [place], Chronic Ki dney Disease (CKD), Stage 3b Glomerular Filtration Rate (GFR) 30 To 44 (HCC) (Primary Dx); Nephrology and Alex Jolly Jr., Diabetes Samara litus Type 2 (HCC); Hypertension in D.O. Hyperlipidemia Mixed; [place], [place] [address] [facility] Hypertensive Chronic Kidney Disease (CKD ) Stage 3b Glomerular Filtration Rate (GFR) 30 To 44 (HCC); [address] [place], [place] [address] [phone] Social History Tobacco Use Types Packs/Day Years Used Date Smoking Tobacco: Never Assessed Sex Assigned at Date Recorded Not on file documented as of this encounter Last Filed Vital Signs Vital Sign Reading Time Taken Comments Blood Pressure 150/90 02/27/2022 9:26 AM CDT Pulse 71 02/27/2022 9:26 AM CDT Temperature - - Respiratory Rate - - Oxygen Saturation - - Inhaled Oxygen Concentration - - Weight 92.5 kg (203 lb 14.8 oz) 02/27/2022 9:26 AM CDT Height 185.4 cm (6' 0.99) 02/27/2022 9:26 AM CDT Body Mass Index 26.91 02/27/2022 9:26 AM CDT documented in this encounter Progress Notes Alex Ryan Jr., Ankita. - 02/27/2022 9:30 AM CDT Referring Provider: No primary care provider on file. SUBJECTIVE REASON FOR VISIT [facility] Follow-up regards chest burning HISTORY OF PRESENT ILLNESS Mr. Mosley is a 61 y.o. male who presents with a history of CKD stage IIIB on the background of hypertensive diabetic and ischemic nephrosclerosis, who mentioned at the end of our last appointment that he is having intensive burning in his chest, particularly when he changed environments. On close questioning this does seem to be related also with exertion and a change in environments. There was a difficult event that he experienced during the pulmonary function tests where he developed intensive neuro muscular cramping during the pulmonary function testing and was sent to the ER. Hehas a longstanding history of muscular cramping, we have manipulated his diuretics he is on a potassium- sparing diuretic currently. He has yet to complete the pulmonary function tests, although we did try inhaler therapy which did not mitigate the chest burning syndrome, which he feels is internal and similar to breathing in extremely cold air. His chest x-ray is normal, his echocardiogram revealed no structural abnormalities. He has been referred for stress testing, this is not taken place yet, this would be a nuclear stress test I have alsoasked for an opinion from our Cardiology colleagues. His home blood pressures have been in the 120s and 130s over 90s. 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 He mentions that he had to pause several times while hewas cutting a tree last week. No PND no orthopnea no lower extremity edema. He reminded me again of his family history where his mother of cardiovascular disease at age 62 and father at age 69. No hypoglycemic events Current Outpatient Medications: atorvastatin (LIPITOR) 20 mg tablet, Take 1 tablet (20 mg total) by mouth daily., Disp: 90 tablet, Rfl: 3 isosorbide mononitrate (IMDUR) 30 mg 24 hr tablet, Take 1 tablet (30 mg total) by mouth daily., Disp: 90 tablet, Rfl: 3 losartan (COZAAR) 50 mg tablet, Take 1.5 tablets (75 mg total) by mouth daily., Disp: 135 tablet, Rfl: 3 metFORMIN (GLUCOPHAGE) 1,000 mg tablet, Take 0.5 tablets (500 mg total) by mouth 2 (two) times a day with meals., Disp: 90 tablet, Rfl: 3 triamterene-hydroCHLOROthiazide (MAXZIDE-25) 37.5-25 mg per tablet, Take 1 tablet by mouth daily., Disp: 90 tablet, Rfl: 3 REVIEW OF SYSTEMS All other systems reviewed and are negative. OBJECTIVE BP 150/90 Pulse 71 Ht 185.4 cm Wt 92.5 kg BMI 26.91 kg/m?? PHYSICAL EXAMINATION General: Awake alert oriented HEENT: MARISSA, EOMI, Mucous membranes moist, no oral lesions Neck: No Masses, No Bruits Lungs: Clear to ascultation Heart: Regular Rate and Rhythm, No ectopy Murmurs or rubs Abdomen: Soft, Non-tender Extremities: No cyanosis, No clubbing: No edema Neuro: Cranial Nerves intact, Gait is normal, strength grossly normal Skin: no suspicious lesions identified Psychiatric: Normal affect DIAGNOSTICS Serum creatinine 1.5 mg/dL, microalbumin to creatinine ratio 20 milligrams/gram normal CBC normal chemistries normal magnesium ASSESSMENT / PLAN #1 Chronic Kidney Disease (CKD), Stage 3b Glomerular Filtration Rate (GFR) 30 To 44 (HCC) His renal function remains gratifyingly stable, I believe he is meeting his goal blood pressure and certainly his glycemic control metrics. He is avoiding NSAIDs, and I will see him back in 3 months regards his CKD. #2 Diabetes Mellitus Type 2 (HCC) Glycemic control has been excellent, he continues on his metformin, we will need to consider an SG LT 2 inhibitor for him eventually. #3 Hyperlipidemia Mixed Well controlled on his current regimen. #4 Hypertensive Chronic Kidney Disease (CKD) Stage 3b Glomerular Filtration Rate (GFR) 30 To 44 (HCC) I am going to add Imdur 30 mg to his regimen, his blood pressure slightly above goals, and I am anxious to see whether this mitigate some of his chest burning. #5 Other Chest Pain I am suspicious this is actually ischemic rather than structural intrinsic pulmonary based pain. Hence, I have orchestrated a nuclear stress test, and visit with our Cardiology team. The Imdur or may be a therapeutic and diagnostic maneuver this point, should he experience dramatic benefit I have asked him to contact me I will have him also initiate a beta-tracy, and give him some sublingual nitro to have at home. Total time: 45 minutes Counseling Time: 30 minutes Alex Ryan Jr., D.O. documented in this encounter Plan of Treatment Not on filedocumented as of this encounter Visit Diagnoses Diagnosis Chronic Kidney Disease (CKD), Stage 3b G lomerular Filtration Rate (GFR) 30 To 44 (HCC) - Primary Diabetes Mellitus Type 2 (HCC) Hyperlipidemia Mixed Hypertensive Chronic Kidney Disease (CKD ) Stage 3b Glomerular Filtration Rate (GFR) 30 To 44 (HCC) Other Chest Pain documented in this encounter
--- OUTSIDE RECORDS SUMMARY | 2022-04-16 08:15 | XMS_ITS | Encounter Summary ---
:1960 Author Organization [facility] Address [address] [place] [address] Care Team Providers Name Role Phone Unavailable Primary Care Provider Unavailable Reason for Visit Appointment Request (Routine) - Closed Specialty Diagnoses / Procedures Referred By Contact Refer red To Contact Nephrology and Hypertension Referral ID Status Reason Start Date Expiration Date Visits Requ ested Visits Authorized [id number] Closed 06/22/2021 06/22/2022 1 1 Encounter Details Date Type Department Care Team Description 07/05/2021 External Outreach Division of Amy Ryan dney Disease (CKD), Stage 3b Glomerular Filtration Rate (GFR) 30 To 44 (HCC) (Primary Dx); Nephrology and Alex Jolly Jr., Osteodystrop hy Renal; Hypertension in D.O. Diabetes Mellitus Type 2 (HCC); [place], [place] [address] [facility] Hyperlipidemia Mixed; [address] [place], [place] Nonspecific Reactive Hepatit is; [place] [address] Hypertension Essential Primary [phone] [phone] Social History Tobacco Use Types Packs/Day Years Used Date Smoking Tobacco: Never Assessed Sex Assigned at Date Recorded Not on file documented as of this encounter Progress Notes Alex Ryan Jr., D.O. - 07/05/2021 9:00 AM CST Please see scanned in note under document viewer tab for the [facility] outreach visit from this date. TECHNICIAN documented in this encounter Plan of Treatment Not on filedocumented as of this encounter Visit Diagnoses Diagnosis Chronic Kidney Disease (CKD), Stage 3b G lomerular Filtration Rate (GFR) 30 To 44 (HCC) - Primary Osteodystrophy Renal Diabetes Mellitus Type 2 (HCC) Hyperlipidemia Mixed Nonspecific Reactive Hepatitis Hypertension Essential Primary documented in this encounter
--- OUTSIDE RECORDS SUMMARY | 2022-04-16 08:15 | XMS_ITS | Encounter Summary ---
:1960 Author Organization [facility] Address [address] [place] [address] Care Team Providers Name Role Phone Unavailable Primary Care Provider Unavailable Reason for Visit Appointment Request (Routine) - Closed Specialty Diagnoses / Procedures Referred By Contact Refer red To Contact Nephrology and Hypertension Referral ID Status Reason Start Date Expiration Date Visits Requ ested Visits Authorized [id number] Closed 12/21/2021 12/21/2022 1 Encounter Details Date Type Department Care Team Description 01/01/2022 External Outreach Division of Amy Ryan Ki dney Disease (CKD), Stage 3b Glomerular Filtration Rate (GFR) 30 To 44 (HCC) (Primary Dx); Nephrology and Alex Jolly Jr., Diabetes Samara litus Type 2 (HCC); Hypertension in D.O. Hypertension Essential Primary; [place], [place] [address] [facility] Osteodystrophy Renal [address] [place] [address] [phone] Social History Tobacco Use Types Packs/Day Years Used Date Smoking Tobacco: Never Assessed Sex Assigned at Date Recorded Not on file documented as of this encounter Progress Notes Alex Ryan Jr., D.O. - 01/01/2022 4:30 PM CDT Please see scanned in note under document viewer tab for the [facility] outreach visit from this date. Medical Problems Diagnosis List Chronic Kidney Disease (CKD), Stage 3b Glomerular Filtration Rate (GFR) 30 To 44 (HCC) Diabetes Mellitus Type 2 (HCC) Nonspecific Reactive Hepatitis Osteodystrophy Renal Hypertension Essential Primary Hyperlipidemia Mixed documented in this encounter Plan of Treatment Not on filedocumented as of this encounter Visit Diagnoses Diagnosis Chronic Kidney Disease (CKD), Stage 3b G lomerular Filtration Rate (GFR) 30 To 44 (HCC) - Primary Diabetes Mellitus Type 2 (HCC) Hypertension Essential Primary Osteodystrophy Renal documented in this encounter
--- OUTSIDE RECORDS SUMMARY | 2022-04-16 08:15 | XMS_ITS | Encounter Summary ---
:1960 Author Organization [facility] Address [address] [place] [address] Care Team Providers Name Role Phone Unavailable Primary Care Provider Unavailable Encounter Details Date Type Department Care Team Description 01/24/2022 Clinical Communication Division of Nephrology Alex Ryan and Hypertension rai Jolly Jr., D.O. [place], [place] [address] [facility] [address] [place] [phone] Social History Tobacco Use Types Packs/Day Years Used Date Smoking Tobacco: Never Assessed Sex Assigned at Date Recorded Not on file documented as of this encounter Miscellaneous Notes Telephone Encounter - Alex Ryan Jr., D.O. - 01/24/2022 5:39 PM CDT Phone note: Asked to give him an emergent phone call. I contacted this evening. He had called the clinic at [place] regarding situation which developedduring his pulmonary function test. I appreciate. His echocardiogram performed at [facility], and this was relatively normal. He has a longstanding history of very difficult to manage cramping. And he relates that prior to hispulmonary function tests he had been outdoors, it was quite humid, and he was frankly, dehydrated. As he attempted to do the rigorous pulmonary function tests he developed severe chest wall cramping, became very uncomfortable and had tachycardia to the point where he was referred to the emergency room. Unfortunately I cannot see these records and his reports are through what he and then his interpreted from the emergency room. They pushed IV of magnesium although I am not certain of the timing as he relates that his magnesiumlevel was normal in the emergency room. He relates that the emergency room physician felt that although his lungs were clear that perhaps hewould benefit from ???a different inhaler ???, as he had tried the albuterol without effect. We discussed with the ED was likely referring to long-acting beta agonist or inhaled corticosteroids. He didnot complete pulmonary function tests obviously. He was also suggested by the emergency room to havea CT scan. He is scheduled for a chest x-ray in [place], but had not completed this yet. He relates additionally that the emergency room stated that there is magnesium medications which get into cells better than the [id number] supplements. We both agreed however there is recent magnesium levels were normal. His cramping situation has been challenging in the past. I suggested he reschedule pulmonary function tests elevated he is well hydrated and not fatigued. Hehas a stress test arranged as well for cardiac function, and we are set to visit [id number], at which point we can decide whether pulmonary and/or Cardiology needs to visit with him. documented in this encounter Plan of Treatment Not on filedocumented as of this encounter Visit Diagnoses Not on filedocumented in this encounter
--- OUTSIDE RECORDS SUMMARY | 2022-04-16 08:15 | XMS_ITS | Encounter Summary ---
:1960 Author Organization [facility] Address [address] [place] [address] Care Team Providers Name Role Phone Unavailable Primary Care Provider Unavailable Reason for Visit Appointment Request (Routine) - Closed Specialty Diagnoses / Procedures Referred By Contact Refer red To Contact Nephrology and Terrence Hernandez Jr., Hypertension MMeron [address] [address] Referral ID Status Reason Start Date Expiration Date Visits Requ ested Visits Authorized [id number] Closed 04/28/2020 04/28/2021 1 1 Encounter Details Date Type Department Care Team Description 05/10/2020 External Outreach Division of [place], Amy Ki dney Disease (CKD), Stage 3a Glomerular Filtration Rate (GFR) 45 To 59 (HCC) (Primary Dx); Nephrology and Alex Jolly Jr., Diabetes Samara litus Type 2 (HCC); Hypertension in D.O. Osteodystrophy Renal; [place], [place] [address] [facility] Hyperlipidemia Mixed; [address] [place], [place] Hypertension Essential Prima ry; [place] [address] Nonspecific Reactive Hepatitis [id number] [phone] Social History Tobacco Use Types Packs/Day Years Used Date Smoking Tobacco: Never Assessed Sex Assigned at Date Recorded Not on file documented as of this encounter Consult Notes Alex Ryan Jr., YuriOKirt - 05/10/2020 2:30 PM CDT Please see scanned in note under document viewer tab for the [facility] outreach visit from this date. documented in this encounter Plan of Treatment Not on filedocumented as of this encounter Visit Diagnoses Diagnosis Chronic Kidney Disease (CKD), Stage 3a G lomerular Filtration Rate (GFR) 45 To 59 (HCC) - Primary Diabetes Mellitus Type 2 (HCC) Osteodystrophy Renal Hyperlipidemia Mixed Hypertension Essential Primary Nonspecific Reactive Hepatitis documented in this encounter
--- OUTSIDE RECORDS SUMMARY | 2022-04-16 08:15 | XMS_ITS | Clinical Summary ---
:1960 Author Organization [facility] Address [address] [place] [address] Care Team Providers Name Role Phone Unavailable Primary Care Provider Unavailable Source Comments Patient records contain information from all sites at [facility]. For routine questions regarding patient records, call [phone] during business hours, M-F 8:00 AM - 5:00 PM Central Time. Record requests for emergency care only can be directed to [phone] at any time.[facility] Medications Medication Sig Dispensed Refills Start Date End Date Status atorvastatin Take 1 tablet 90 tablet 3 05/10/2020 Ac tive (LIPITOR) 20 mg (20 mg total) by tablet mouth daily. losartan (COZAAR) 50 Take 1.5 tablets 135 tablet 3 05/10/2020 Active mg tablet (75 mg total) by mouth daily. triamterene-hydroCHLO Take 1 tablet by 90 tablet 3 05/10/2020 Active ROthiazide mouth daily. (MAXZIDE-25) 37.5-25 mg per tablet metFORMIN Take 0.5 tablets 90 tablet 3 05/10/2020 Ac tive (GLUCOPHAGE) 1,000 mg (500 mg total) tablet by mouth 2 (two) times a day with meals. isosorbide Take 1 tablet 90 tablet 3 02/27/2022 02/27/2023 Act jessica mononitrate (IMDUR) (30 mg total) by 30 mg 24 hr tablet mouth daily. Active Problems Problem Noted Date Other Chest Pain 02/27/2022 Chronic Kidney Disease (CKD), Stage 3b Glomerular Filt ration Rate (GFR) 30 05/10/2020 To 44 Diabetes Mellitus Type 2 05/10/2020 Nonspecific Reactive Hepatitis 05/10/2020 Osteodystrophy Renal 05/10/2020 Hypertensive Chronic Kidney Disease (CKD) Stage 3b Tiarra merular Filtration 05/10/2020 Rate (GFR) 30 To 44 Hyperlipidemia Mixed 05/10/2020 Encounters Date Type Specialty Care Team Description 02/27/2022 External Outreach Nephrology and [place], Chronic Kidney Disease (CKD), Stage 3b Glomerular Filtration Rate (GFR) 30 To 44 (HCC) (Primary Dx); Hypertension Alex Jolly Jr., Diabetes Susan ibarra Type 2 (HCC); D.O. Hyperlipidemia Mixed; Hypertensive Ch ronic Kidney Disease (CKD) Stage 3b Glomerular Filtration Rate (GFR) 30 To 44 (HCC); Other Chest Emerald n 01/24/2022 Clinical Nephrology and [place], Communication Hypertension Alex Jolly Jr., D.O. from Last 3 Months Social History Tobacco [...] Mass Index 26.91 02/27/2022 9:26 AM CDT Plan of Treatment Health Maintenance Due Date Last Done Comments CT Colonography 1960 Cologuard 1960 Colonoscopy 1960 Colorectal Cancer Screening 1960 Creatinine Level 1960 Diabetic Office Visit with Foot 1962 Exam Dilated Eye Exam 1962 FIT 1960 HIV Screening 1960 Hemoglobin A1C 1962 Hepatitis C Screening 1962 Lipid (Cholesterol) Screening 1960 Potassium Level 1962 Sodium Level 1962 Urine Albumin 1960 Depression Screening (Annual 07/22/2021 PHQ-2) COVID-19 Vaccine (4 - Booster for 08/01/2021 06/06/2021, , Pfizer series) 10/15/2020 Hepatitis B Vaccines (1 of 3 - 2022 Risk 3-dose series) Influenza Vaccine (#1) 2022 04/19/2021, 05/10/2020, 04/25/2019, Additional history exists Office Visit for Blood Pressure 05/30/2022 02/27/2022 Check / Re-check Pneumococcal vaccine (0-64 years) 05/06/2023 05/06/2018, (3 - PPSV23 or PCV20) DTaP,Tdap,and Td Vaccines (2 - Td 10/12/2025 10/13/2015 or Tdap) Zoster Vaccines Completed 04/25/2019, 10/26/2017 Insurance Payer Benefit Plan / Subscriber ID Effective Phone Address T e Group [facility] [id number] 2019-Pres [phone] [address] PPO OPEN ACCESS ent [address] [place] [address]
--- OUTSIDE RECORDS SUMMARY | 2022-04-16 08:15 | XMS_ITS | Encounter Summary ---
:1960 Author Organization [facility] Address [address], [place] [address] Care Team Providers Name Role Phone Hansa Lewis DELMA, BUTTON INSPECTOR Primary Care Provider [phone] Encounter Details Date Type Department Care Team Description 10/25/1995 PN Conversion Only MANDAEN CONVERSION Jessica Monterroso MD [address] [facility] [address] [facility] [address] [place], [place] [address] (Wo rk) Social History Tobacco Use Types Packs/Day Years Used Date Smoking Tobacco: Never Assessed Sex Assigned at Date Recorded Not on file documented as of this encounter Plan of Treatment Not on filedocumented as of this encounter Procedures Procedure Name Priority Date/Time Associated Comments Diagnosis CONVERSION DEFAULT Routine 10/25/1995 5:27 PM Res ults for this INTERFACE ORDER HAND BUFFING WHEEL FORMER procedure ar e in the results section. CONVERSION DEFAULT Routine 10/25/1995 5:27 PM Res ults for this INTERFACE ORDER HAND BUFFING WHEEL FORMER procedure ar e in the results section. documented in this encounter Results Conversion Default Interface Order (10/25/1995 5:27 PM HAND BUFFING WHEEL FORMER) P athologist Signature Magnesium 2.0 1.8 2.4MG/D HP CONVERSION L Specimen (Source) Anatomical Collection Method Collection Time Re ceived Time Location / / Volume Laterality 10/25/1995 5:27 PM HAND BUFFING WHEEL FORMER Arnulof Monterroso MD LAB_1 Performing Organization Address City/State/ZIP Code Phon e Number HP CONVERSION Conversion Default Interface Order (10/25/1995 5:27 PM HAND BUFFING WHEEL FORMER) P athologist Signature Blood Urea 17 5 26MG/D L HP CONVERSION Nitrogen Creatinine 1.3 0.5 HP CONVERSION Serum 1.5MG/D L Sodium 143 137 HP CONVERSION 147MEQ/ L Potassium 4.5 3.5 HP CONVERSION 5.2MEQ/ L Uric Acid Serum 6.9 2.5 HP CONVERSION 8.5MG/D L Specimen (Source) Anatomical Collection Method Collection Time Re ceived Time Location / / Volume Laterality 10/25/1995 5:27 PM HAND BUFFING WHEEL FORMER Arnulfo Monterroso MD LAB_1 Performing Organization Address City/State/ZIP Code Phon e Number HP CONVERSION documented in this encounter Visit Diagnoses Not on filedocumented in this encounter Care Teams Counselor Education Professor Relationship Specialty Start Date End Date Hansa Lewis APRN, BUTTON INSPECTOR PCP - General 10/22/10 11/30/12 [id number] [place] [address] documented as of this encounter
--- OUTSIDE RECORDS SUMMARY | 2022-04-16 08:15 | XMS_ITS | Encounter Summary ---
:1960 Author Organization [facility] Address [address], [place] [address] Care Team Providers Name Role Phone Hansa Lewis APRN, CNP Primary Care Provider [phone] Encounter Details Date Type Department Care Team Description 11/02/2002 PN Conversion Only [facility] N Hansa Lewis APRN, [address] [place] [address] [facility] [place], [place] [address] (Wo rk) Social History Tobacco Use Types Packs/Day Years Used Date Smoking Tobacco: Never Assessed Sex Assigned at Date Recorded Not on file documented as of this encounter Plan of Treatment Not on filedocumented as of this encounter Procedures Procedure Name Priority Date/Time Associated Diagnosis Comme nts CREATININE / GFR Routine 11/02/2002 5:24 PM Resul ts for this CDT procedure are i n the results section. documented in this encounter Results Creatinine / GFR (11/02/2002 5:24 PM CDT) P athologist Signature Creatinine 1.4 0.5 - 1.5 HP CONVERSION Serum mg/dL Specimen (Source) Anatomical Collection Method Collection Time Re ceived Time Location / / Volume Laterality 11/02/2002 5:24 PM CDT Hansa Lewis APRN, CNP LAB_1 Performing Organization Address City/State/ZIP Code Phon e Number HP CONVERSION documented in this encounter Visit Diagnoses Not on filedocumented in this encounter Care Teams Credit Collection Associate Relationship Specialty Start Date End Date Hansa Lewis APRN, SOUND DESIGNER PCP - General 10/22/10 11/30/12 [address] [place] [address] documented as of this encounter
[2022-04-16 09:40] LABS: Albumin* 4.5 g/dL (3.3-5.0)
[2022-04-16 09:41] LABS: Chloride* 106 mmol/L (96-114); Potassium* 4.9 mmol/L (3.6-5.1); Sodium* 140 mmol/L (135-149)
[2022-04-16 09:43] LABS: Aspartate Amino Transferase* 29 U/L (12-35); Bilirubin Total* 0.9 mg/dL (0.1-1.5); Carbon Dioxide* 25 mmol/L (20-32); Cholesterol* 191 mg/dL (90-199); Creatinine* 1.6 mg/dL (0.5-1.5); Estimated Glomerular Filt Rate 49 ml/min
[2022-04-16 09:44] LABS: Alanine Aminotransferase* 39 U/L (4-50); Alkaline Phosphatase* 72 U/L (40-150); Blood Urea Nitrogen* 27 mg/dL (7-30); Glucose* 140 mg/dL (60-115); HDL Cholesterol* 35 mg/dL (>=40); LDL Cholesterol Calculated 98 mg/dL (<100); Triglycerides* 289 mg/dL (40-149)
[2022-04-16 10:01] LABS: Creatinine Urine 117.2 mg/dL
[2022-04-16 10:07] LABS: Microalbumin Creatinine Ratio 10 mg/g (0-30); Microalbumin Urine 2 mg/dL
[2022-04-16 10:12] LABS: PSA Screen* 1.34 ng/mL (0.10-4.00)
== END 2022-04-16 07:52 | disposition home or self-care (01) ==
PROVIDERS: PCP Family Medicine; Visit Provider Family Medicine
DX: E11.9 Type 2 diabetes mellitus without complications (principal); I10 Essential (primary) hypertension; E78.5 Hyperlipidemia, unspecified; N18.30 Chronic kidney disease, stage 3 unspecified
CPT/HCPCS: 80053; 80061; 82043; 82570; 84153

== ENCOUNTER 2022-06-28 08:49 | Outpatient (CLI) | payer OTHER, SELFPAY ==
--- OUTSIDE RECORDS SUMMARY | 2022-06-28 08:55 | XMS_ITS | Encounter Summary ---
:1960 Author Organization [employer] Address [address] [place] [address] Care Team Providers Name Role Phone Pita Giraldo MD Primary Care Provider Reason for Visit Reason Comments Refill metFORMIN (GLUCOPHAGE) 1000 MG tablet [Pharmacy Med Name: METFORMIN HCL 1,000 MG TABLET] Encounter Details Date Type Department Care Team Description 04/05/2020 [address]ill [facility] Pita Giraldo M D Refill (metFORMIN Medicine [address] (GLUCOPHAGE) [address] [place] [address] tablet [Pharmacy Med [place], [place] [phone] (Wo rk) Name: METFORMIN HCL [address] 1,000 MG TABLET]) [phone] Social History Tobacco Use Types Packs/Day Years Used Date Smoking Tobacco: Never Smokeless Tobacco: Never Alcohol Use Standard Drinks/Week Comments Yes 0 (1 standard drink = 0.6 oz pure Alcoho lic Drinks/day: Amount:1-2 alcohol) drinks; Freq:=< Curt hly; Sex Assigned at Date Recorded Not on [...] TIMES A DAY WITH MEALS. Interface, Out Lightning Lab Prov Query - 04/05/2020 12:40 AM CDT [...] HBA1C: 5.5 % on 09/08/2019 Powered by [employer], Reference: [id number], 04/05/2020 12:40:08 AM CDT, Pool: JO REFILL ([id number]) Interface, Out Lightning Lab Prov Query - 04/05/2020 12:40 AM CDT The following lab order(s) may be associated with the Result Note below: HGB A1C Notes recorded by Pita Giraldo MD on 09/09/2019 at 8:41 AM ARBORIST CLIMBER hgA1C great follow up for DM in 6 months Interface, Out SurescriSocialBro Prov Query - 04/05/2020 12:40 AM CDT [...] healthy Education (05/30/2017 ASHIA Crews, 4:29 PM ARBORIST CLIMBER) ASHLEY, CHEIKH Note: Formatting of this note might be d ifferent from the original. Count carbohydrates at meals and snacks. documented as of this encounter Visit Diagnoses Not on filedocumented in this encounter Care Teams Informatica Developer Relationship Specialty Start Date End Date Pita Giraldo MD PCP - General Family Practice 02/21/17 08/08/20 [address] [place] [address] documented as of this encounter
--- OUTSIDE RECORDS SUMMARY | 2022-06-28 08:55 | XMS_ITS | Encounter Summary ---
:1960 Author Organization [employer] Address [address] [place] [address] Care Team Providers Name Role Phone Unavailable Primary Care Provider Unavailable Reason for Visit Reason Comments Refill atorvastatin (LIPITOR) 20 MG tablet [Pharmacy Med Name: ATORVASTATIN 20 MG TABLET] Encounter Details Date Type Department Care Team Description 08/17/2020 Refill [facility] Pita Giraldo MD Refill (atorvastatin [address] (LIPITOR) 20 MG tablet [place], [place] [address] [Pharmacy Med Name: [id number] ATORVASTATIN 20 MG [phone] TABLET]) Social History Tobacco Use Types Packs/Day [...] Sig: TAKE 1 TAB BY MOUTH DAILY. ICIST ACOUSTICS Interface, Out Accept Software Prov Query - 08/17/2020 2:00 PM CST [...] GIRALDO) Next scheduled visit: None Powered by [employer], Reference: [id number], 08/17/2020 2:00:49 PM PHYSICIST ACOUSTICS, Pool: JO REFILL ([id number]) ICIST ACOUSTICS documented in this encounter Plan of Treatment Not on filedocumented as of this encounter Goals Goal Patient Goal Associated Recent Patient-Stated? Author Type Problems Progress Eating Diabetes On track No Genaro healthy Education (05/30/2017 ASHIA Crews, 4:29 PM PHYSICIST ACOUSTICS) ASHLEY, CHEIKH Note: Formatting of this note might be d ifferent from the original. Count carbohydrates at meals and snacks. documented as of this encounter Visit Diagnoses Not on filedocumented in this encounter
--- OUTSIDE RECORDS SUMMARY | 2022-06-28 08:55 | XMS_ITS | Encounter Summary ---
:1960 Author Organization [email or web address] Address [address] [place] [address] Care Team Providers Name Role Phone Sunny Giraldo MD Primary Care Provider Encounter Details Date Type Department Care Team Description 09/08/2019 Lab Visit [facility] Type 2 diabetes mellitus [address] without complication, [place] [address] without long-term current [phone] use of insulin (HRC) Social History Tobacco Use Types Packs/Day Years Used Date Smoking Tobacco: Never Smokeless Tobacco: Never Alcohol Use Standard Drinks/Week Comments Yes 0 (1 standard drink = 0.6 oz pure Alcoho lic Drinks/day: Amount:1-2 alcohol) drinks; Freq:=< Curt hly; Sex Assigned at Date Recorded Not on file documented as of this encounter Progress Notes Sunyn Giraldo MD - 09/08/2019 6:30 PM CST hgA1C great follow up for DM in 6 months MARKETING documented in this encounter Plan of Treatment Not on filedocumented as of this encounter Goals Goal Patient Goal Associated Recent Patient-Stated? Author Type Problems Progress Eating Diabetes On track No Genaro healthy Education (05/30/2017 ASHIA Crews, 4:29 PM SVP MARKETING) ASHLEY, CHEIKH Note: Formatting of this note might be d ifferent from the original. Count carbohydrates at meals and snacks. documented as of this encounter Procedures Procedure Name Priority Date/Time Associated Diagnosis Comme nts HGB A1C Routine 09/08/2019 6:37 PM Type 2 diabetes Result s for this SVP MARKETING mellitus without procedure a re in the complication, without result s section. long-term current use of insulin (HRC) documented in this encounter Results Hgb A1C (09/08/2019 6:37 PM SVP MARKETING) P athologist Signature Hemoglobin A1C 5.5 <=5.6 % 09/08/2019 [facility] 9:35 PM [facility]ORY Specimen Anatomical Collection Method / Collection Time Recei katherine Time (Source) Location / Volume Laterality Blood Venipuncture / 09/08/2019 6:37 09/08/2019 6:37 Unknown PM [employer] PM [employer] Sunny Giraldo MD LAB_1 Performing Organization Address City/State/ZIP Code Phon e Number [facility] [address] [place] [address] documented in this encounter Visit Diagnoses Diagnosis Type 2 diabetes mellitus without complic ation, without long-term current use of insulin (HRC) documented in this encounter Care Teams Mold Mover Relationship Specialty Start Date End Date Sunny Giraldo MD PCP - General Family Practice 02/21/17 08/08/20 [address] [place] [address] documented as of this encounter
--- OUTSIDE RECORDS SUMMARY | 2022-06-28 08:55 | XMS_ITS | Clinical Summary ---
:1960 Author Organization [employer] [facility] [place] [address] Care Team Providers Name Role Phone Nathaniel [...] (hypertension) daily. Active Problems Not on file Social History Tobacco Use Types Packs/Day Years [...] 1973 Depression screening for age 12+ 1974 HIV for age 15-65 1977 BMI (ht and wt on same day) for age 0803/05/1980 18+ Hepatitis C screening for age 18-79 1980 Tetanus booster 1982 Colonoscopy through age 75 2007 Lipids for age 45-75 2007 Zoster (shingles) series for age 50+ 2012 (1 of 2) COVID-19 vaccine series (4 - Booster 08/01/2021 06/06/2021, 11/05/2020, for Pfizer series) 10/15/2020 Influenza for age 50-64 03/22/2022 Results Not on filefrom Last 3 Months Insurance Payer Benefit Plan / Subscriber ID Effective Dates Phone Addre ss Type Group [employer] HP [id number] 2021-Present [address] [place] [address] Care Teams University President Relationship Specialty Start Date End Date Nathaniel Dee MD PCP - General Family Practice 01/03/[address] [place] [id number]
--- OUTSIDE RECORDS SUMMARY | 2022-06-28 08:55 | XMS_ITS | Encounter Summary ---
:1960 Author Organization [employer] Address [address] [place] [address] Care Team Providers Name Role Phone Unavailable Primary Care Provider Unavailable Reason for Visit Reason Comments Refill metFORMIN (GLUCOPHAGE) 1000 MG tablet [Pharmacy Med Name: METFORMIN HCL 1,000 MG TABLET] Encounter Details Date Type Department Care Team Description 09/25/2020 Refill [facility] Pita Giraldo MD Refill (metFORMIN [address] [address] [address] (GLUCOPHAGE) 1000 MG [place], [place] [address] tablet [Pharmacy Med [id number] Name: METFORMIN HCL [phone] 1,000 MG TABLET]) Social History Tobacco Use [...] Order. Ernestine Salinas RN 09/26/2020, 3:11 PM DIEM PHYSICAL THERAPIST Interface, Out Surescripts Prov Query - 09/25/2020 [...] HBA1C: 5.5 % on 09/08/2019 Powered by Kalion, Reference: [id number], 09/25/2020 12:26:41 AM PER DIEM PHYSICAL THERAPIST, Pool: JO DAVIDILL ([id number]) Interface, Out Lellan Query - 09/25/2020 12:26 AM CST The following lab order(s) may be associated with the Result Note below: HGB A1C Notes recorded by Pita Giraldo MD on 09/09/2019 at 8:41 AM PER DIEM PHYSICAL THERAPIST hgA1C great follow up for DM in 6 months Interface, Out Focus Media Prov Query - 09/25/2020 12:26 AM CST [...] healthy Education (05/30/2017 ASHIA Crews, 4:29 PM PER DIEM PHYSICAL THERAPIST) ASHLEY, CHEIKH Note: Formatting of this note might be d ifferent from the original. Count carbohydrates at meals and snacks. documented as of this encounter Visit Diagnoses Not on filedocumented in this encounter
--- OUTSIDE RECORDS SUMMARY | 2022-06-28 08:55 | XMS_ITS | Encounter Summary ---
:1960 Author Organization [employer] Address [address], [place] [address] Care Team Providers Name Role Phone Unavailable Primary Care Provider Unavailable Reason for Visit Reason Onset Date Comments Refill 08/17/2020 Encounter Details Date Type Department Care Team Description 08/17/2020 [facility]ill [facility] 3931 Newton Hernandez MD Refill Nephrology 3931 [facility] [address] [place] [address] [place] [address] [phone] Social History Tobacco Use Types Packs/Day Years [...] PM CST Rx refused. Needs an appt. YSIS ENGINEER documented in this encounter Plan of Treatment Not on filedocumented as of this encounter Goals Goal Patient Goal Associated Recent Patient-Stated? Author Type Problems Progress Eating Diabetes On track No rachel Lam Education (05/30/2017 ASHIA Crews, 4:29 PM ANALYSIS ENGINEER) ASHLEY, CHEIKH Note: Formatting of this note might be d ifferent from the original. Count carbohydrates at meals and snacks. documented as of this encounter Visit Diagnoses Diagnosis Chronic kidney disease, stage III (moder ate) ([facility]) Chronic kidney disease, Stage III (moder ate) documented in this encounter
--- OUTSIDE RECORDS SUMMARY | 2022-06-28 08:55 | XMS_ITS | Encounter Summary ---
:1960 Author Organization [employer] Address [address] [place] [address] Care Team Providers Name Role Phone Sunny Giraldo MD Primary Care Provider Reason for Visit Reason Comments UPDATE Encounter Details Date Type Department Care Team Description 08/26/2019 Telephone [facility] 3931 Newton Hernandez MD UPDATE Nephrology 3931 [facility] 3931 [facility] [address] [place] [address] [place], [place] [id number] (Wo rk) Social History Tobacco Use Types [...] - 08/27/2019 3:31 PM CST Patient notified. GRINDER Terrence Hernandez MD - 08/26/2019 1:51 PM CST Have him stop the chlorthalidone. Increase losartan to 75mg daily. GRINDER Asia Tejada, RN - 08/26/2019 9:28 AM CST Pts spouse called, said pt was not able to respond to lab message, but did receive the lab message asking about BP. Pt's BP update for past 2 weeks: 135 - 138 / 88-90 Pt does not notice a change in BP since med changed. You can respond to pt via DBVu message here. GRINDER documented in this encounter Plan of Treatment Not on filedocumented as of this encounter Goals Goal Patient Goal Associated Recent Patient-Stated? Author Type Problems Progress Eating Diabetes On track No Genaro healthy Education (05/30/2017 ASHIA Crews, 4:29 PM ROLL GRINDER) ASHLEY, CHEIKH Note: Formatting of this note might be d ifferent from the original. Count carbohydrates at meals and snacks. documented as of this encounter Visit Diagnoses Diagnosis Chronic kidney disease, stage III (moder ate) ([facility]) Chronic kidney disease, Stage III (moder ate) documented in this encounter Care Teams Medical Authorization Specialist Relationship Specialty Start Date End Date Sunny Giraldo MD PCP - General Family Practice 02/21/17 08/08/20 [address] [place] [address] documented as of this encounter
--- OUTSIDE RECORDS SUMMARY | 2022-06-28 08:55 | XMS_ITS | Encounter Summary ---
:1960 Author Organization [employer] Address [address] [place] [address] Care Team Providers Name Role Phone Sunny Giraldo MD Primary Care Provider Reason for Visit Reason Comments BLOOD PRESSURE, HIGH Encounter Details Date Type Department Care Team Description 09/09/2019 Telephone [facility] 3931 Newton Hernandez MD BLOOD PRESSURE, HIGH Nephrology 3931 [facility] 3931 [facility] [place] [phone] (Wo rk) Social History Tobacco Use Types [...] I'll have to add a differentBP med. NER SIGNS Asia Tejada, LANEY - 09/09/2019 2:15 PM CST Pt's spouse called, said we can reply to pt via Venuetastic. Said pt was directed to contact nephrology [...] said pt has no shortness of breath. NER SIGNS documented in this encounter Plan of Treatment Not on filedocumented as of this encounter Goals Goal Patient Goal Associated Recent Patient-Stated? Author Type Problems Progress Eating Diabetes On track No Genaro healthy Education (05/30/2017 ASHIA Crews, 4:29 PM CLEANER SIGNS) ASHLEY, CHEIKH Note: Formatting of this note might be d ifferent from the original. Count carbohydrates at meals and snacks. documented as of this encounter Visit Diagnoses Not on filedocumented in this encounter Care Teams Painter Plate Relationship Specialty Start Date End Date Sunny Giraldo MD PCP - General Family Practice 02/21/17 08/08/20 [address] [place] [address] documented as of this encounter
--- OUTSIDE RECORDS SUMMARY | 2022-06-28 08:55 | XMS_ITS | Encounter Summary ---
:1960 Author Organization [employer] Address [address] [place] [address] Care Team Providers Name Role Phone Pita Giraldo MD Primary Care Provider Reason for Visit Reason Comments Refill losartan (COZAAR) 25 MG tabl et [Pharmacy Med Name: LOSARTAN POTASSIUM 25 MG TAB] Encounter Details Date Type Department Care Team Description 09/22/2019 Refill [facility] Pita Giraldo M D Refill (losartan Medicine [address] (COZAAR) 25 MG [address] [place] [address] [Pharmacy Med Name: [place], [place] [phone] (Wo rk) LOSARTAN POTASSIUM 25 MG [id number] TAB]) [phone] Social History Tobacco Use Types Packs/Day Years [...] K: 4.5 mEq/L on 08/18/2019 Powered by Evisors, Reference: [id number], 09/22/2019 2:09:03 AM Jose WANG: JO REFILL ([id number]) K STUDIES PROFESSOR documented in this encounter Plan of Treatment Not on filedocumented as of this encounter Goals Goal Patient Goal Associated Recent Patient-Stated? Author Type Problems Progress Eating Diabetes On track No Genaro, healthy Education (05/30/2017 ASHIA Crews, 4:29 PM BLACK STUDIES PROFESSOR) ASHLEY, CHEIKH Note: Formatting of this note might be d ifferent from the original. Count carbohydrates at meals and snacks. documented as of this encounter Visit Diagnoses Diagnosis Chronic kidney disease, stage III (moder ate) ([facility]) Chronic kidney disease, Stage III (moder ate) documented in this encounter Care Teams School Counsellor Relationship Specialty Start Date End Date Pita Giraldo MD PCP - General Family Practice 02/21/17 08/08/20 [address] [place] [address] documented as of this encounter
--- OUTSIDE RECORDS SUMMARY | 2022-06-28 08:55 | XMS_ITS | Encounter Summary ---
:1960 Author Organization [employer] Address [address] [place] [address] Care Team Providers Name Role Phone Pita Giraldo MD Primary Care Provider Reason for Visit Reason Comments Refill VENTOLIN HFA 108 (90 Base) M CG/ACT inhaler [Pharmacy Med Name: VENTOLIN HFA 90 MCG INHALER] Encounter Details Date Type Department Care Team Description 02/18/2020 Refill [facility] Pita Giraldo M D Refill (VENTOLIN HFA 108 Medicine [address] (90 Base) MCG/ACT [address] [place] [address] inhaler [Pharmacy Med [place], [place] [phone] (Wo rk) Name: VENTOLIN HFA 90 [id number] MCG INHALER]) [phone] Social History Tobacco Use Types Packs/Day Years [...] last 12 months and Please advise if intermodal dispatcher supply is appropriate Last qualifying visit: 09/08/2019 [...] 87 mm Hg on 09/08/2019 Powered by Zapier, Reference: [id number], 02/18/2020 1:48:22 PM CDT, Pool: JO REFILL ([id number]) documented in this encounter Plan of Treatment Not on filedocumented as of this encounter Goals Goal Patient Goal Associated Recent Patient-Stated? Author Type Problems Progress Eating Diabetes On track No Genaro AMS-Qi Education (05/30/2017 ASHIA Crews, 4:29 PM SHOW CARD LETTERER) ASHLEY, CHEIKH Note: Formatting of this note might be d ifferent from the original. Count carbohydrates at meals and snacks. documented as of this encounter Visit Diagnoses Diagnosis COULTER (dyspnea on exertion) Other dyspnea and respiratory abnormalit y documented in this encounter Care Teams Transfer Agent Relationship Specialty Start Date End Date Pita Giraldo MD PCP - General Family Practice 02/21/17 08/08/20 [address] [place] [address] documented as of this encounter
--- OUTSIDE RECORDS SUMMARY | 2022-06-28 08:55 | XMS_ITS | Encounter Summary ---
:1960 Author Organization [employer] Address [address] [place] [address] Care Team Providers Name Role Phone Pita Giraldo MD Primary Care Provider Reason for Visit Reason Comments Refill atorvastatin (LIPITOR) 20 MG tablet Encounter Details Date Type Department Care Team Description 09/04/2019 Refill [facility] Pita Giraldo M D Refill (atorvastatin Medicine [address] (LIPITOR) 20 MG tablet) [address] [place] [address] [place], [place] [phone] (Wo rk) [address] [phone] Social History Tobacco Use Types Packs/Day Years [...] visit: 09/08/2019 (in Family Practice) Powered by Housing.[employer], Reference: [id number], 09/04/2019 8:21:52 AM Jose WANG: PN REFILL WIZARD ADMIN ([id number]) Gali Jerome - 09/04/2019 8:21 AM CST Medications - [...] refills) Please route to: Refill Pool (P [id number]) [facility] Pool [facility] ONLY (P [id number]) [facility] JUANITA [place] ONLY (P [id number]) RANS SERVICE REPRESENTATIVE documented in this encounter Plan of Treatment Not on filedocumented as of this encounter Goals Goal Patient Goal Associated Recent Patient-Stated? Author Type Problems Progress Eating Diabetes On track No Genaro healthy Education (05/30/2017 ASHIA Crews, 4:29 PM VETERANS SERVICE REPRESENTATIVE) ASHLEY, CHEIKH Note: Formatting of this note might be d ifferent from the original. Count carbohydrates at meals and snacks. documented as of this encounter Visit Diagnoses Not on filedocumented in this encounter Care Teams Table Games Manager Relationship Specialty Start Date End Date Pita Giraldo MD PCP - General Family Practice 02/21/17 08/08/20 [address] [place] [address] documented as of this encounter
--- OUTSIDE RECORDS SUMMARY | 2022-06-28 08:55 | XMS_ITS | Encounter Summary ---
:1960 Author Organization [employer] Address [address] [place] [address] Care Team Providers Name Role Phone Pita Giraldo MD Primary Care Provider Reason for Visit Reason Comments Refill VENTOLIN HFA 108 (90 Base) M CG/ACT inhaler [Pharmacy Med Name: VENTOLIN HFA 90 MCG INHALER] Encounter Details Date Type Department Care Team Description 06/28/2020 Refill [facility] Pita Giraldo MD Refill (VENTOLIN HFA 108 [address] (90 Base) MCG/ACT [place], [place] [address] inhaler [Pharmacy Med [id number] Name: VENTOLIN HFA 90 [phone] MCG INHAL ER]) Social History Tobacco Use Types Packs/Day Years Used Date Smoking Tobacco: Never Smokeless Tobacco: Never Alcohol Use Standard Drinks/Week Comments Yes 0 (1 standard drink = 0.6 oz pure Alcoho lic Drinks/day: Amount:1-2 alcohol) drinks; Freq:=< Curt hly; Sex Assigned at Date Recorded Not on file documented as of this encounter Nursing Notes Geovanna Mcelroy, ADVISOR TO COMMAND IN COMBAT - 06/29/2020 2:06 PM CST Medication Refill [...] encounter high priority to Refill Pool (P [id number]) OLL ADMINISTRATOR Sydnee Martines, RN - 06/28/2020 9:35 PM [...] PUFFS BY MOUTH EVERY 4 HOURS NEEDED OLL ADMINISTRATOR Interface, Out Surescripts Prov Query - 06/28/2020 5:04 PM CST VENTOLIN HFA 108 (90 Base) MCG/ACT inhaler [Pharmacy Med Name: VENTOLIN HFA 90 MCG INHALER] Medication started: 04/25/2019 Last ordered by PITA GIRALDO: 04/25/2019 (430 days ago) QTY: 1, Refills: 0, Sig: inhale 1-2 puffs every 4 hours as needed. (changed but equivalent) -> Refill x 3 months (until due for an office visit) -> Calculate the quantity and number of refills manually. Last qualifying visit: 09/08/2019 (with PITA GIRALDO) Next scheduled visit: None Powered by Salesconx, Reference: [id number], 06/28/2020 5:04:04 PM PAYROLL ADMINISTRATOR, Pool: LAKVL REFILL ([id number]) OLL ADMINISTRATOR documented in this encounter Plan of Treatment Not on filedocumented as of this encounter Goals Goal Patient Goal Associated Recent Patient-Stated? Author Type Problems Progress Eating Diabetes On track No Genaro healthy Education (05/30/2017 ASHIA Crews, 4:29 PM PAYROLL ADMINISTRATOR) ASHLEY, CHEIKH Note: Formatting of this note might be d ifferent from the original. Count carbohydrates at meals and snacks. documented as of this encounter Visit Diagnoses Diagnosis COULTER (dyspnea on exertion) Other dyspnea and respiratory abnormalit y documented in this encounter Care Teams Mechanical Assembly Technician Relationship Specialty Start Date End Date Pita Giraldo MD PCP - General Family Practice 02/21/17 08/08/20 [address] [place] [address] documented as of this encounter
--- OUTSIDE RECORDS SUMMARY | 2022-06-28 08:55 | XMS_ITS | Encounter Summary ---
:1960 Author Organization [employer] Address [address] [address] Care Team Providers Name Role Phone Sunny Giraldo MD Primary Care Provider Reason for Visit Reason Comments MEDICATION CHECK Encounter Details Date Type Department Care Team Description 09/08/2019 Office Visit [facility] Sunny Giraldo M D Type 2 diabetes mellitus with diabetic n ephropathy, without long-term current use of insulin (HRC); Medicine [address] Type 2 diabetes mellitus without complic ation, without long-term current use of insulin (HRC) [address] [place] [phone] Social History Tobacco Use Types Packs/Day Years [...] Comments Blood Pressure 168/87 09/08/2019 5:44 PM SENIOR PLANNING MANAGER Pulse 52 09/08/2019 5:44 PM SENIOR PLANNING MANAGER Temperature - - Respiratory Rate - - Oxygen Saturation - - Inhaled Oxygen Concentration - - Weight 85.4 kg (188 lb 3.2 oz) 09/08/2019 5:44 PM SENIOR PLANNING MANAGER Height - - Body Mass Index 25.17 [...] kidney disease stage III moderate. He see senior manager quality assurance and he had also chronic nonalcoholic liver disease. My last time that he see his senior manager quality assurance his calcium was increasing to 10.6 he [...] be distressed. HEENT: Ear clear, nose mucosa Grayson trophic, oral cavity pharynx uvula appear normal. [...] his medication tomorrow he will see his senior manager quality assurance consult with them if hegoing to continue to take the same medication or not or change it his diuretic was stopped because his calcium was going up. For diabetes he did see clinical educator in the past glucose was normal [...] was discharged ambulatory and in stable condition. OR PLANNING MANAGER documented in this encounter Plan of Treatment Not on filedocumented as of this encounter Goals Goal Patient Goal Associated Recent Patient-Stated? Author Type Problems Progress Eating Diabetes On track No Genaro, healthy Education (05/30/2017 ASHIA Crews, 4:29 PM SENIOR PLANNING MANAGER) ASHLEY, CHEIKH Note: Formatting of this note might be d ifferent from the original. Count carbohydrates at meals and snacks. documented as of this encounter Results Hgb A1C (09/08/2019 6:37 PM SENIOR PLANNING MANAGER) P athologist Signature Hemoglobin A1C 5.5 <=5.6 % 09/08/2019 [facility] 9:35 PM SENIOR PLANNING MANAGER LABORATORY Specimen Anatomical Collection Method / Collection Time Recei aktherine Time (Source) Location / Volume Laterality Blood Venipuncture / 09/08/2019 6:37 09/08/2019 6:37 Unknown PM SENIOR PLANNING MANAGER PM SENIOR PLANNING MANAGER Sunny Giraldo MD LAB_1 Performing Organization Address City/State/ZIP Code Phon e Number [facility] [address] [place] [address] documented in this encounter Visit Diagnoses Diagnosis Type 2 diabetes mellitus with diabetic n ephropathy, without long-term current use of insulin ([facility]C) Type 2 diabetes mellitus without complic ation, without long-term current use of insulin ([facility]) documented in this encounter Care Teams Gang Drill Press Operator Relationship Specialty Start Date End Date Sunny Giraldo MD PCP - General Family Practice 02/21/17 08/08/20 [address] [place] [address] documented as of this encounter
--- OUTSIDE RECORDS SUMMARY | 2022-06-28 08:55 | XMS_ITS | Encounter Summary ---
:1960 Author Organization [employer] Address [address] [place] [address] Care Team Providers Name Role Phone Unavailable Primary Care Provider Unavailable Reason for Visit Reason Comments Refill VENTOLIN HFA 108 (90 Base) M CG/ACT inhaler [Pharmacy Med Name: VENTOLIN HFA 90 MCG INHALER] Encounter Details Date Type Department Care Team Description 01/24/2021 Refill [facility] Sunny Giraldo MD Refill (VENTOLIN HFA [address] [address] (90 Base) MCG/ACT [place], [place] [address] inhaler [Pharmacy Med [phone] Name: VENTOLIN HFA 90 [phone] MCG INHAL ER]) Social History Tobacco Use Types Packs/Day Years Used Date Smoking Tobacco: Never Smokeless Tobacco: Never Alcohol Use Standard Drinks/Week Comments Yes 0 (1 standard drink = 0.6 oz pure Alcoho lic Drinks/day: Amount:1-2 alcohol) drinks; Freq:=< Curt hly; Sex Assigned at Date Recorded Not on file documented as of this encounter Nursing Notes Lisa Mcnulty CMA - 01/26/2021 3:30 PM CDT Made second [...] 01/25/2021 6:41 PM CDT Needs office visit Shaikla Mcgill - 01/25/2021 9:38 AM CDT Medication [...] Route as [id number] Neel Mejia RN - 01/24/2021 10:00 AM CDT Further Assistance Needed on Refill from Model Maker Patient is overdue for Office visit. An office visit is overdue (performed 17 months ago, required every 12 months). ? Last qualifying visit: 09/08/2019 (with SUNNY GIRALDO) ? Next scheduled visit: None ? Please call patient to schedule a Office/Video Visit and document using .KEVON. After attemptingto schedule patient: Please route to: Sunny Giraldo Requested Prescriptions Pending Prescriptions Disp Refills [...] INHALER] Medication started: 04/25/2019 Last ordered by SUNNY GIRALDO: 06/28/2020 (210 days ago) QTY: 1, Refills: 0, Sig: inhale 1 to 2 puffsby mouth every 4 hours as needed (unchanged) -> An office visit is overdue (performed 17 months ago, required every 12 months). Last qualifying visit: 09/08/2019 (with SUNNY GIRALDO) Next scheduled visit: None Powered by JDLab by [email or web address], Reference: [id number], 01/24/2021 9:16:53 AM CDT, Jose:JO HERNANDEZILL ([id number]) documented in this encounter Plan of Treatment Not on filedocumented as of this encounter Goals Goal Patient Goal Associated Recent Patient-Stated? Author Type Problems Progress Eating Diabetes On track No Genaro healthy Education (05/30/2017 ASHIA Crews, 4:29 PM INSURANCE BILLING SPECIALIST) ASHLEY, CHEIKH Note: Formatting of this note might be d ifferent from the original. Count carbohydrates at meals and snacks. documented as of this encounter Visit Diagnoses Diagnosis COULTER (dyspnea on exertion) Other dyspnea and respiratory abnormalit y documented in this encounter
--- OUTSIDE RECORDS SUMMARY | 2022-06-28 08:55 | XMS_ITS | Clinical Summary ---
:1960 Author Organization [employer] Address [address] [place] [address] Care Team Providers Name Role Phone Unavailable [...] for each transition of care or referral. [employer] Allergies Active Allergy Reactions Severity Noted Date [...] use Use to check blood of insulin (HRC) sugars. chlorthalidone TAKE 1 TABLET BY 90 [...] Influenza IIV4 (Quadrivalent) 0.5mL 04/25/2019, 05/06/2018, 04/24/2017, ([id number]) 05/11/2016, 06/14/2015, 05/28/2013 Influenza, Unspecified Formulation 05/19/2008, [...] Comments Blood Pressure 168/87 09/08/2019 5:44 PM STULL INSTALLER Pulse 52 09/08/2019 5:44 PM STULL INSTALLER Temperature 36.8 ??C (98.2 ??F) 04/25/2019 9:10 AM CDT Respiratory Rate 16 04/25/2019 9:10 AM CDT Oxygen Saturation - - Inhaled Oxygen Concentration - - Weight 85.4 kg (188 lb 3.2 oz) 09/08/2019 5:44 PM STULL INSTALLER Height 184.2 cm (6' 0.5) 02/25/2018 4:20 [...] Hep C Screening (Preventive Completed 01/19/2016, 07/30/19 08 Services) Zoster/Shingles Completed 04/25/2019, 10/26/2017 Hib Aged [...] healthy Education (05/30/2017 ASHIA Crews, 4:29 PM STULL INSTALLER) ASHLEY, CHEIKH Note: Formatting of this note might be d ifferent from the original. Count carbohydrates at meals and snacks. Insurance Payer Benefit Plan / Subscriber ID Effective Dates Phone Addre ss Type Group Applied CavitationPARTMarkado FULLY [id number] 2015-Present Commercial INSURED Bryce Mosley Personal/Family Self 1960 [address] [phone] [place] (Work) [id number] Bryce Mosley Personal/Family Self 1960 [address] (Home) [facility] [phone] [place] (Work) [id number] Veronica Mosley Personal/Family Self 02/[birth year]/1964 [address] [facility] (Home) [place], [place] [phone] (Work)
--- OUTSIDE RECORDS SUMMARY | 2022-06-28 08:55 | XMS_ITS | Encounter Summary ---
:1960 Author Organization [employer]. Address [address] [place] [address] Care Team Providers Name Role Phone Unavailable Primary Care Provider Unavailable Reason for Visit Reason Comments Refill metFORMIN (GLUCOPHAGE) 1000 MG tablet [Pharmacy Med Name: METFORMIN HCL 1,000 MG TABLET] Encounter Details Date Type Department Care Team Description 11/16/2020 Refill [facility] Pita Giraldo MD Refill (metFORMIN [address] [address] [address] (GLUCOPHAGE) 1000 MG [place], [place] [address] tablet [Pharmacy Med [id number] Name: METFORMIN HCL [phone] 1,000 MG TABLET]) Social History Tobacco Use [...] HBA1C: 5.5 % on 09/08/2019 Powered by Agencyport Software by [employer], Reference: [id number], 11/16/2020 8:50:39 AM CDT, Pool:JO ARELLANO ([id number]) Interface, Out Expert360 Prov Query - 11/16/2020 8:50 AM CDT The following lab order(s) may be associated with the Result Note below: HGB A1C Notes recorded by Pita Giraldo MD on 09/09/2019 at 8:41 AM BUILDING SERVICES ENGINEER hgA1C great follow up for DM in 6 months Interface, Out Expert360 Prov Query - 11/16/2020 8:50 AM CDT The [...] healthy Education (05/30/2017 ASHIA Crews, 4:29 PM BUILDING SERVICES ENGINEER) ASHLEY, CHEIKH Note: Formatting of this note might be d ifferent from the original. Count carbohydrates at meals and snacks. documented as of this encounter Visit Diagnoses Not on filedocumented in this encounter
--- OUTSIDE RECORDS SUMMARY | 2022-06-28 08:56 | XMS_ITS | Encounter Summary ---
:1960 Author Organization [employer] Address [address] [place] [address] Care Team Providers Name Role Phone Sunny Giraldo MD Primary Care Provider Reason for Visit Reason Comments Diabetes Encounter Details Date Type Department Care Team Description 04/25/2019 Office Visit [facility] Sunny Giraldo M D Type 2 diabetes mellitus without complic ation, without long-term current use of insulin (HRC) (Primary Dx); Medicine [address] RODASE (dyspnea on exertion) [address] [place] [phone] Social History Tobacco Use Types Packs/Day [...] glycohemoglobin and other lab monitoring discussed and computer terminal operator diabetic complications discussed. We going to try albuterol metered-dose inhaler and see if is going to be useful, if this also not useful he agree I will send him to [facility] for further lung capacity evaluation and lungs test. Patient agree documented in this encounter Plan of Treatment Not on filedocumented as of this encounter Goals Goal Patient Goal Associated Recent Patient-Stated? Author Type Problems Progress Eating Diabetes On track Kelin Lam healthy Education (05/30/2017 ASHIA Crews, 4:29 PM SENIOR SALES COMPENSATION ANALYST) ASHLEY, CHEIKH Note: Formatting of this note might be d ifferent from the original. Count carbohydrates at meals and snacks. documented as of this encounter Results Hgb A1C (04/25/2019 10:08 AM CDT) P athologist Signature Hemoglobin A1C 5.6 <=5.6 % 04/26/2019 [facility] 10:41 AM CDT LABORATORY Specimen Anatomical Collection Method / Collection Time Recei katherine Time (Source) Location / Volume Laterality Blood Venipuncture / 04/25/2019 10:08 9 Unknown AM CDT 10:08 AM CDT Sunny Giraldo MD LAB_1 Performing Organization Address City/State/ZIP Code Phon e Number [facility] [address] [place] [address] (ABNORMAL) Lipid Panel - LDLD If Trig High (04/25/2019 10:08 AM CDT) [facility] gist Method Time Signature Cholesterol 146 0 - 199 04/25/2019 [facility] mg/dL 3:53 PM CDT LABORATORY Triglyceride 118 <=149 04/25/2019 [facility] mg/dL 3:53 PM CDT LABORATORY HDL Cholesterol 35 (L) >=40 mg/dL 04/25/2019 [facility] 3:53 PM CDT LABORATORY LDL, Calculated 87 <130 mg/dL 04/25/2019 [facility] 3:53 PM CDT LABORATORY Non HDL Chol, 111 <=159 04/25/2019 [facility] Calculated mg/dL 3:53 PM CDT LABORATORY Cholesterol/HDL 4.2 04/25/2019 [facility] Ratio 3:53 PM CDT LABORATORY Hours Fasting 15 04/25/2019 [facility] 3:53 PM CDT Specimen Anatomical Collection Method / Collection Time Recei katherine Time (Source) Location / Volume Laterality Blood Venipuncture / 04/25/2019 10:08 9 Unknown AM CDT 10:08 AM CDT Sunny Giraldo MD LAB_1 Performing Organization Address City/State/ZIP Code Phon e Number [facility] [address] [place] [address] [facility] [address] [place] [address], RUST documented in this encounter Visit Diagnoses Diagnosis Type 2 diabetes mellitus without complic ation, without long-term current use of insulin (HRC) - Primary COULTER (dyspnea on exertion) Other dyspnea and respiratory abnormalit y documented in this encounter Care Teams Hospital Wellness Coordinator Relationship Specialty Start Date End Date Sunny Giraldo MD PCP - General Family Practice 02/21/17 08/08/20 [address] [place] [address] documented as of this encounter
--- OUTSIDE RECORDS SUMMARY | 2022-06-28 08:56 | XMS_ITS | Encounter Summary ---
:1960 Author Organization [employer] Address [address] [place] [address] Care Team Providers Name Role Phone Pita Giraldo MD Primary Care Provider Reason for Visit Reason Comments Refill metFORMIN (GLUCOPHAGE) 500 M G tablet [Pharmacy Med Name: METFORMIN HCL 500 MG TABLET] Encounter Details Date Type Department Care Team Description 04/02/2019 Refill [facility] Pita Giraldo M D Refill (metFORMIN Medicine [address] (GLUCOPHAGE) 500 MG [address] [place] [address] tablet [Pharmacy Med [place], [place] [phone] (Wo rk) Name: METFORMIN HCL 500 [id number] MG TABLET]) [phone] Social History Tobacco Use Types Packs/Day Years Used Date Smoking Tobacco: Never Smokeless Tobacco: Never Alcohol Use Standard Drinks/Week Comments Yes 0 (1 standard drink = 0.6 oz pure Alcoho lic Drinks/day: Amount:1-2 alcohol) drinks; Freq:=< Curt hly; Sex Assigned at Date Recorded Not on file documented as of this encounter Nursing Notes Ernestine Salinas RN - 04/03/2019 12:43 PM CDT Renewed medication per medication refill protocol. Requested Prescriptions Pending Prescriptions Disp Refills metFORMIN (GLUCOPHAGE) 500 MG tablet [Pharmacy Med Name: METFORMIN HCL 500 MG TABLET] 360 Tablet 0 Sig: TAKE 2 TABLETS BY MOUTH TWO TIMES A DAY. Interface, Out Nicko Prov Query - 04/02/2019 2:29 AM CDT [...] (Sent to [facility]) Powered by [employer], Reference: [id number], 04/02/2019 2:29:19 AM CDT, Pool: JO REFILL ([id number]) documented in this encounter Plan of Treatment Not on filedocumented as of this encounter Goals Goal Patient Goal Associated Recent Patient-Stated? Author Type Problems Progress Eating Diabetes On track No Genaro healthy Education (05/30/2017 ASHIA Crews, 4:29 PM SHIPYARD PAINTING SUPERVISOR) ASHLEY, CHEIKH Note: Formatting of this note might be d ifferent from the original. Count carbohydrates at meals and snacks. documented as of this encounter Visit Diagnoses Not on filedocumented in this encounter Care Teams Tree And Shrub Worker Relationship Specialty Start Date End Date Pita Giraldo MD PCP - General Family Practice 02/21/17 08/08/20 [address] [place] [address] documented as of this encounter
--- OUTSIDE RECORDS SUMMARY | 2022-06-28 08:56 | XMS_ITS | Encounter Summary ---
:1960 Author Organization [employer] Address [address] [place] [address] Care Team Providers Name Role Phone Pita Giraldo MD Primary Care Provider Reason for Visit Reason Comments Refill atorvastatin (LIPITOR) 20 MG tablet [Pharmacy Med Name: ATORVASTATIN 20 MG TABLET] Encounter Details Date Type Department Care Team Description 10/27/2018 Refill [facility] Pita Giraldo MD Refill (atorvastatin [address] (LIPITOR) 20 MG tablet [place], [place] [address] [Pharmacy Med Name: [id number] ATORVASTATIN 20 MG [phone] TABLET]) Social History Tobacco Use Types Packs/Day Years Used Date Smoking Tobacco: Never Smokeless Tobacco: Never Alcohol Use Standard Drinks/Week Comments Yes 0 (1 standard drink = 0.6 oz pure Alcoho lic Drinks/day: Amount:1-2 alcohol) drinks; Freq:=< Curt hly; Sex Assigned at Date Recorded Not on file documented as of this encounter Nursing Notes Shilpi Carbajal, RN - 10/27/2018 11:50 AM CDT Renewed medication per medication refill protocol. Requested Prescriptions Pending Prescriptions Disp Refills ??? atorvastatin (LIPITOR) 20 MG tablet [Pharmacy Med Name: ATORVASTATIN 20 MG TABLET] 90 Tablet 1 Sig: TAKE 1 TAB BY MOUTH DAILY. Interface, Out Growish Query - 10/27/2018 7:36 AM CDT atorvastatin (LIPITOR) 20 MG tablet [Pharmacy Med Name: ATORVASTATIN 20 MG TABLET] Medication started: 10/29/2017 Last ordered by MALIA GIRALDOUP: 10/29/2017 (363 days ago) QTY: 90, Refills: 3, Sig: take 1 tab by mouth daily. (unchanged) -> Refill x 6 months, qty: 90, refills: 1 (until due for an office visit) Last qualifying visit: 02/25/2018 (with PITA GIRALDO) Next scheduled visit: None Powered by [employer], Reference: [id number], 10/27/2018 7:36:15 AM CDT, Pool: JO REFILL ([id number]) documented in this encounter Plan of Treatment Not on filedocumented as of this encounter Goals Goal Patient Goal Associated Recent Patient-Stated? Author Type Problems Progress Eating Diabetes On track No rachel Lam Education (05/30/2017 ASHIA rCews, 4:29 PM OUTPATIENT DIETITIAN) ASHLEY, CHEIKH Note: Formatting of this note might be d ifferent from the original. Count carbohydrates at meals and snacks. documented as of this encounter Visit Diagnoses Not on filedocumented in this encounter Care Teams Sales Program Manager Relationship Specialty Start Date End Date Pita Giraldo MD PCP - General Family Practice 02/21/17 08/08/20 [address] [place] [address] documented as of this encounter
--- OUTSIDE RECORDS SUMMARY | 2022-06-28 08:56 | XMS_ITS | Encounter Summary ---
:1960 Author Organization [employer] Address [address] [place] [address] Care Team Providers Name Role Phone Sunny Giraldo MD Primary Care Provider Reason for Visit Reason Comments Diabetes Encounter Details Date Type Department Care Team Description 02/25/2018 Office Visit [facility] Sunny Giraldo M D Type 2 diabetes mellitus without complic ation, without long-term current use of insulin (HRC) (Primary Dx); Medicine [address] Essential hypertension; [address] [place], [place] Hyperlipidemia, unspecified hyperlipidemia type; [place] [id number] Chronic nonalcoholic liver disease; [address] Screening for [...] 5:11 PM CDT NAME: JOSH MOSLEY MR#: [id number] CSN: [id number] AUTHENTICATING CLINICIAN: Sunny Giraldo MD CONFIRM #: [id number] LOC: 4402 CLINIC PROGRESS NOTE DATE OF [...] weeks ago, he was alsoseen by his Rn Camp because he has some kidney issues. He is on Glucophage the warehouse supervisor knows that and will monitor closely. PAST MEDICAL HISTORY: Also hypertension, hyperlipidemia, chronic nonalcoholic liver disease in the past, GERD, chronic kidney disease, stage 3, moderate, diabetes mellitus; his hemoglobin A1c in October was 5.1. He saw his warehouse supervisor again on February 17, and he ordered [...] and kidney problem: He follows with the warehouse supervisor. 3.Liver issue: I will check his liver enzyme, hemoglobin A1c. Otherwise, will see the patient in June for diabetes, again with 6-month followup. He understands and accepts that and also he will come in the fall for a flu shot and if he has any questions or concerns, he will come here or he will see the warehouse supervisor to monitor his blood pressure. He understands and accepts that. Now he is going to watch his blood pressure. YO:MEDQ C: CONFIRM #: [id number] documented in this encounter Plan of Treatment Not on filedocumented as of this encounter Goals Goal Patient Goal Associated Recent Patient-Stated? Author Type Problems Progress Eating Diabetes On track Kelin Lam healthy Education (05/30/2017 ASHIA Crews, 4:29 PM MASTER CONTROL ENGINEER) ASHLEY, CHEIKH Note: Formatting of this note might be d ifferent from the original. Count carbohydrates at meals and snacks. documented as of this encounter Results (ABNORMAL) Liver Panel(Hepatic Function Panel) (07/07/2018 2:56 PM MASTER CONTROL ENGINEER) [facility] gist Method Time Signature Alk Phos [...] Volume Laterality 07/07/2018 2:56 PM 8 5:05 MASTER CONTROL ENGINEER PM MASTER CONTROL ENGINEER Narrative PN SOFT - 07/07/2018 5:31 PM MASTER CONTROL ENGINEER Performed at [facility], [address] [place] [address] CLIA number [id number] Sunny Giraldo MD LAB_1 Performing Organization Address City/State/ZIP Code Phon e Number PN SOFT [address] [place] [address] Microalbumin Urine Random (UMAR) (07/07/2018 2:56 PM MASTER CONTROL ENGINEER) P athologist Signature Microalbumin 18.5 mg/L PN SOFT Urine U Creat Random 124 mg/dL PN SOFT Microalbumin/Crea 14.9 0.0 - 30.0 PN SOFT tinine Ratio Specimen Anatomical Collection Method Collection Time Receive d Time (Source) Location / / Volume Laterality Urine specimen 07/07/2018 2:56 PM 018 5:05 (specimen) MASTER CONTROL ENGINEER PM MASTER CONTROL ENGINEER Narrative PN SOFT - 07/07/2018 6:09 PM MASTER CONTROL ENGINEER Performed at [facility], [address] [place] [address] CLIA number [id number] Sunny Giraldo MD LAB_1 Performing Organization Address City/[facility] Phon e Number PN SOFT [address] [place] [address] Hgb A1c (07/07/2018 2:56 PM MASTER CONTROL ENGINEER) athologist Signature HGB A1C 5.5 4.0 - 5.6 % PN SOFT Specimen Anatomical Collection Method Collection Time Receive d Time (Source) Location / / Volume Laterality 07/07/2018 2:56 PM 8 8:04 MASTER CONTROL ENGINEER PM MASTER CONTROL ENGINEER Narrative PN SOFT - 07/07/2018 11:46 PM MASTER CONTROL ENGINEER Performed at [address] [address] CLIA number [id number] Sunny Giraldo MD LAB_1 Performing Organization Address City/[facility] Phon e Number PN SOFT [address] [place] [address] (ABNORMAL) Basic Metabolic Panel (07/07/2018 2:56 PM MASTER CONTROL ENGINEER) Analysis Performed At Patho logist Time Signature [...] Volume Laterality 07/07/2018 2:56 PM 8 5:05 MASTER CONTROL ENGINEER PM MASTER CONTROL ENGINEER Narrative PN SOFT - 07/07/2018 5:31 PM MASTER CONTROL ENGINEER Performed at [facility], [address] [place] [address] CLIA number [id number] Sunny Giraldo MD LAB_1 Performing Organization Address City/[facility]/ZIP Code Phon e Number PN SOFT [address] [place] [address] [phone] Hgb A1c (02/25/2018 4:58 PM CDT) P athologist Signature HGB A1C 5.5 4.0 - 5.6 % PN SOFT Specimen Anatomical Collection Method Collection Time Receive d Time (Source) Location / / Volume Laterality 02/25/2018 4:58 PM 8 8:54 CDT PM CDT Narrative PN SOFT - 02/25/2018 10:40 PM CDT Performed at [facility], [address] [place] [address] CLIA number [id number] Sunny Giraldo MD LAB_1 Performing Organization Address City/[facility]/ZIP Code Phon e Number PN SOFT [address] [place] [address] documented in this encounter Visit Diagnoses Diagnosis [...] alcohol documented in this encounter Care Teams Nutritionist Public Health Relationship Specialty Start Date End Date Sunny Giraldo MD PCP - General Family Practice 02/21/17 08/08/20 [address] [place] [address] documented as of this encounter
--- OUTSIDE RECORDS SUMMARY | 2022-06-28 08:56 | XMS_ITS | Encounter Summary ---
:1960 Author Organization [email or web address] Address [address] [place] [address] Care Team Providers Name Role Phone Sunny Giraldo MD Primary Care Provider Encounter Details Date Type Department Care Team Description 02/25/2018 Lab Visit [facility] Type 2 diabetes mellitus [address] without complication, [place] [address] without long-term current [phone] use of insulin (HRC) Social History Tobacco [...] healthy Education (05/30/2017 ASHIA Crews, 4:29 PM ARTILLERY OFFICER) ASHLEY, CHEIKH Note: Formatting of this note [...] Results Hgb A1c (02/25/2018 4:58 PM CDT) P athologist Signature HGB A1C 5.5 4.0 - 5.6 % PN SOFT Specimen Anatomical Collection Method Collection Time Receive d Time (Source) Location / / Volume Laterality 02/25/2018 4:58 PM 8 8:54 CDT PM CDT Narrative PN SOFT - 02/25/2018 10:40 PM CDT Performed at [facility], [address] [place] [address] CLIA number [id number] Sunny Giraldo MD LAB_1 Performing Organization Address City/State/ZIP Code Phon e Number SOFT [address] [place] [address] documented in this encounter Visit Diagnoses Diagnosis Type 2 diabetes mellitus without complic ation, without long-term current use of insulin (HRC) documented in this encounter Care Teams Field Administrator Relationship Specialty Start Date End Date Sunny Giraldo MD PCP - General Family Practice 02/21/17 08/08/20 [address] [place] [address] documented as of this encounter
--- OUTSIDE RECORDS SUMMARY | 2022-06-28 08:56 | XMS_ITS | Encounter Summary ---
:1960 Author Organization [employer] Address [address] [place] [address] Care Team Providers Name Role Phone Sunny Giraldo MD Primary Care Provider Encounter Details Date Type Department Care Team Description 07/07/2018 Lab Visit [facility] Hyperlipidemia, unspecified hyperlipidemia type; [address] Type 2 diabetes mellitus wit hout complication, without long-term current use of insulin (HRC); [place] [address] Chronic nonalcoholic liver d isease [phone] Social History Tobacco Use Types Packs/Day Years [...] in 6 months if concern any time. RESOLUTION SPECIALIST documented in this encounter Plan of Treatment Not on filedocumented as of this encounter Goals Goal Patient Goal Associated Recent Patient-Stated? Author Type Problems Progress Eating Diabetes On track No Genaro healthy Education (05/30/2017 ASHIA Crews, 4:29 PM CASE RESOLUTION SPECIALIST) ASHLEY, CDCES Note: Formatting of this note might be d ifferent from the original. Count carbohydrates at meals and snacks. documented as of this encounter Procedures Procedure Name Priority Date/Time Associated Diagnosis Comme nts LIVER Routine 07/07/2018 2:56 PM Chronic nonalcoholic R esults for this PANEL(HEPATIC CASE RESOLUTION SPECIALIST liver disease procedure are in FUNCTION PANEL) the results section. BASIC METABOLIC Routine 07/07/2018 2:56 PM Hyperlipidemia, Res ults for this PANEL CASE RESOLUTION SPECIALIST unspecified procedure are i n hyperlipidemia type the resu lts section. ALBUMIN/CREAT Routine 07/07/2018 2:56 PM Type 2 diabetes Resul ts for this RATIO CASE RESOLUTION SPECIALIST mellitus without procedure a re in complication, without the re sults long-term current use sectio n. of insulin (HRC) HGB A1C Routine 07/07/2018 2:56 PM Type 2 diabetes Result s for this CASE RESOLUTION SPECIALIST mellitus without procedure a re in complication, without the re sults long-term current use sectio n. of insulin (HRC) documented in this encounter Results (ABNORMAL) Liver Panel(Hepatic Function Panel) (07/07/2018 2:56 PM CASE RESOLUTION SPECIALIST) [facility] gist Method Time Signature Alk Phos [...] Volume Laterality 07/07/2018 2:56 PM 8 5:05 CASE RESOLUTION SPECIALIST PM CASE RESOLUTION SPECIALIST Narrative PN SOFT - 07/07/2018 5:31 PM CASE RESOLUTION SPECIALIST Performed at [facility], [address] [place] [address] CLIA number [id number] Sunny Giraldo MD LAB_1 Performing Organization Address City/State/ZIP Code Phon e Number PN SOFT [address] [place] [address] Microalbumin Urine Random (UMAR) (07/07/2018 2:56 PM CASE RESOLUTION SPECIALIST) P athologist Signature Microalbumin 18.5 mg/L PN SOFT Urine U Creat Random 124 mg/dL PN SOFT Microalbumin/Crea 14.9 0.0 - 30.0 PN SOFT tinine Ratio Specimen Anatomical Collection Method Collection Time Receive d Time (Source) Location / / Volume Laterality Urine specimen 07/07/2018 2:56 PM 018 5:05 (specimen) CASE RESOLUTION SPECIALIST PM CASE RESOLUTION SPECIALIST Narrative PN SOFT - 07/07/2018 6:09 PM CASE RESOLUTION SPECIALIST Performed at [facility], [address] [place] [address] CLIA number [id number] Sunny Giraldo MD LAB_1 Performing Organization Address City/[facility] Phon e Number PN SOFT [address] [place] [address] Hgb A1c (07/07/2018 2:56 PM CASE RESOLUTION SPECIALIST) athologist Signature HGB A1C 5.5 4.0 - 5.6 % PN SOFT Specimen Anatomical Collection Method Collection Time Receive d Time (Source) Location / / Volume Laterality 07/07/2018 2:56 PM 8 8:04 CASE RESOLUTION SPECIALIST PM CASE RESOLUTION SPECIALIST Narrative PN SOFT - 07/07/2018 11:46 PM CASE RESOLUTION SPECIALIST Performed at [address] [address] CLIA number [id number] Sunny Giraldo MD LAB_1 Performing Organization Address City/[facility] Phon e Number PN SOFT [address] [place] [id number] (ABNORMAL) Basic Metabolic Panel (07/07/2018 2:56 PM CASE RESOLUTION SPECIALIST) Analysis Performed At Patho logist Time Signature [...] Volume Laterality 07/07/2018 2:56 PM 8 5:05 CASE RESOLUTION SPECIALIST PM CASE RESOLUTION SPECIALIST Narrative PN SOFT - 07/07/2018 5:31 PM CASE RESOLUTION SPECIALIST Performed at [facility], [address] [place] [address] CLIA number [id number] Sunny Giraldo MD LAB_1 Performing Organization Address City/State/ZIP Code Phon e Number PN SOFT [address] [place] [address] documented in this encounter Visit Diagnoses Diagnosis Hyperlipidemia, unspecified hyperlipidem ia type (HRC) Type 2 diabetes mellitus without complic ation, without long-term current use of insulin (HRC) Chronic nonalcoholic liver disease (HRC) Unspecified chronic liver disease withou t mention of alcohol documented in this encounter Care Teams Sr Risk Management Consultant Relationship Specialty Start Date End Date Sunny Giraldo MD PCP - General Family Practice 02/21/17 08/08/20 [address] [place] [address] documented as of this encounter
--- OUTSIDE RECORDS SUMMARY | 2022-06-28 08:56 | XMS_ITS | Encounter Summary ---
:1960 Author Organization [facility] Address [address] [place] [address] Care Team Providers Name Role Phone Sunny Giraldo MD Primary Care Provider Encounter Details Date Type Department Care Team Description 02/19/2019 Lab Visit [facility] Chronic kidney disease [address] (CKD), stage III (moderate) [place] [address] ([facility]) [phone] Social History Tobacco Use Types Packs/Day Years [...] Education (05/30/2017 ASHIA Crews, 4:29 PM RESEARCH LABORATORY MANAGER) ASHLEY, CHEIKH Note: Formatting of this note might be d ifferent from the original. Count carbohydrates at meals and snacks. documented as of this encounter Procedures Procedure Name Priority Date/Time Associated Diagnosis Comme nts VITAMIN D Routine 02/19/2019 12:20 PM Chronic kidney Result s for this 25-HYDROXY, TOTAL CDT disease (CKD), stage pr ocedure are in III (moderate) (HR) the res ults section. RENAL FUNCTION Routine [...] Vitamin D, 43 30 - 80 02/19/2019 [facility] 25-OH, Total ng/mL 5:27 PM CDT LABORATORY Specimen Anatomical Collection Method Collection Time Receive d Time (Source) Location / / Volume Laterality Blood 02/19/2019 12:20 02/19/2019 PM CDT 12:20 PM CDT Terrence Hernandez MD LAB_[address] [facility] Phon e Number [facility] [address] [place] [address] PTH - Parathyroid Hormone Intact - in 1 year (02/19/2019 12:20 PM CDT) athologist Signature Intact PTH 55 10 - 100 02/19/2019 [facility] pg/mL 4:21 PM CDT LABORATORY Specimen Anatomical Collection Method Collection Time Receive d Time (Source) Location / / Volume Laterality Blood 02/19/2019 12:20 02/19/2019 PM CDT 12:20 PM CDT Terrence Hernandez MD LAB_[address] [facility] Phon e Number [facility] [address] [place] [address] Microalbumin Urine Random - in 1 year (02/19/2019 12:20 PM CDT) P athologist Signature Albumin, 7.9 mg/L 02/19/2019 [facility] Urine, Random 3:50 PM CDT LABORATORY Creatinine, 65 >20 mg/dL 02/19/2019 [facility] Urine, Random 3:50 PM CDT LABORATORY Albumin/Creati 12 <30 mg/g 02/19/2019 [facility] nine Ratio, 3:50 PM CDT LABORATORY Urine, Random Specimen Anatomical Collection Method Collection Time Receive d Time (Source) Location / / Volume Laterality Urine,random 02/19/2019 12:20 02/19/2019 PM CDT 12:20 PM CDT Terrence Hernandez MD LAB_1 Performing Organization Address City/[facility]/ZIP Code Phon e Number [facility] [address] [place] [address] Hemoglobin - in 1 year (02/19/2019 12:20 PM CDT) athologist Signature Hemoglobin 15.0 13.5 - 17.5 02/19/2019 [facility] g/dL 12:25 PM CDT Specimen Anatomical Collection Method Collection Time Receive d Time (Source) Location / / Volume Laterality Blood 02/19/2019 12:20 02/19/2019 PM CDT 12:20 PM CDT Terrence Hernandez MD LAB_1 Performing Organization Address City/State/ZIP Code Phon e Number [facility] [address] [place] [address] [phone] [facility] [address] [place] [address] [address] [phone] (ABNORMAL) Renal Function Panel - in 1 year (02/19/2019 12:20 PM CDT) Patholo gist Method Time Signature Sodium 141 136 - 145 02/19/2019 [facility] mmol/L 3:12 PM CDT LABORATORY Potassium 4.0 3.5 - 5.1 02/19/2019 [facility] mmol/L 3:12 PM CDT LABORATORY Chloride 102 98 - 109 02/19/2019 [facility] mmol/L 3:12 PM CDT LABORATORY CO2 26 20 - 29 02/19/2019 [facility] mmol/L 3:12 PM CDT LABORATORY Anion Gap 13 7 - 16 02/19/2019 [facility] mmol/L 3:12 PM CDT LABORATORY Calcium 10.1 8.4 - 10.4 02/19/2019 [facility] mg/dL 3:12 PM CDT LABORATORY BUN 21 7 - 26 02/19/2019 [facility] mg/dL 3:12 PM CDT LABORATORY Creatinine 1.40 (H) 0.73 - 02/19/2019 [facility] 1.18 mg/dL 3:12 PM CDT LABORATORY GFR, Estimated 56 (L) >60 02/19/2019 [facility] mL/min/1.7 3:12 PM CDT LABORATORY 3m2 GFR, Est If >60 >60 02/19/2019 [facility] mL/min/1.7 3:12 PM CDT LABORATORY Lebanese 3m2 Albumin 4.4 3.5 - 5.0 02/19/2019 [facility] g/dL 3:12 PM CDT LABORATORY Phosphorus 2.8 2.3 - 4.7 02/19/2019 [facility] mg/dL 3:12 PM CDT LABORATORY Glucose 105 (H) 70 - 100 02/19/2019 [facility] mg/dL 3:12 PM CDT LABORATORY Comment: The given reference range is fo r the fasting state. Non-fasting reference range for glucose is 70 - 180 mg/dL. Hours Fasting 3 02/19/2019 3:12 PM CDT [facility] Specimen Anatomical Collection Method Collection Time Receive d Time (Source) Location / / Volume Laterality Blood 02/19/2019 12:20 02/19/2019 PM CDT 12:20 PM CDT Narrative [facility] - 02/19/2019 3:12 PM CDT The [...] Organization Address City/State/ZIP Code Phon e Number [facility] [address] [place] [address] [facility] [address] [place] [address], [phone] [facility] documented in this encounter Visit Diagnoses Diagnosis Chronic kidney disease (CKD), stage III (moderate) (HRC) Chronic kidney disease, Stage III (moder ate) documented in this encounter Care Teams Special Needs Bus Driver Relationship Specialty Start Date End Date Sunny Giraldo MD PCP - General Family Practice 02/21/17 08/08/20 [address] [place] [address] documented as of this encounter
--- OUTSIDE RECORDS SUMMARY | 2022-06-28 08:56 | XMS_ITS | Encounter Summary ---
:1960 Author Organization [facility] Address [address] [place] [address] Care Team Providers Name Role Phone Sunny Giraldo MD Primary Care Provider Reason for Visit Reason Comments Follow-up Encounter Details Date Type Department Care Team Description 03/03/2019 Office Visit [facility] Terrence Hrenandez MD Anginal pain (HRC) (Primary Dx); 3931 Nephrology 3931 [facility] Chronic kidney disease, stag e III (moderate) (HRC); [address] [facility] [address] [place] [address] [phone] (Wo rk) Social History Tobacco Use Types [...] Past Medical History: Reviewed and updated in [facility] [employer]. Pertinent details annotated in the assessment. Patient [...] healthy Education (05/30/2017 ASHIA Crews, 4:29 PM OPERATIONS RESEARCH MANAGER) ASHLEY, CHEIKH Note: Formatting of this note might be d ifferent from the original. Count carbohydrates at meals and snacks. documented as of this encounter Results (ABNORMAL) Renal Function Panel - in 1 month (04/10/2019 4:26 PM CDT) [facility] Method Time Signature Sodium 139 136 - 145 04/10/2019 [facility] mmol/L 8:56 PM CDT LABORATORY Potassium 3.9 3.5 - 5.1 04/10/2019 [facility] mmol/L 8:56 PM CDT LABORATORY Chloride 102 98 - 109 04/10/2019 [facility] mmol/L 8:56 PM CDT LABORATORY CO2 26 20 - 29 04/10/2019 [facility] mmol/L 8:56 PM CDT LABORATORY Anion Gap 11 7 - 16 04/10/2019 [facility] mmol/L 8:56 PM CDT LABORATORY Calcium 9.6 8.4 - 10.4 04/10/2019 [facility] mg/dL 8:56 PM CDT LABORATORY BUN 19 7 - 26 04/10/2019 [facility] mg/dL 8:56 PM CDT LABORATORY Creatinine 1.60 (H) 0.73 - 04/10/2019 [facility] 1.18 mg/dL 8:56 PM CDT LABORATORY GFR, Estimated 47 (L) >60 04/10/2019 [facility] mL/min/1.7 8:56 PM CDT LABORATORY 3m2 GFR, Est If 55 (L) >60 04/10/2019 [facility] mL/min/1.7 8:56 PM CDT LABORATORY Montenegrin 3m2 Albumin 4.3 3.5 - 5.0 04/10/2019 [facility] g/dL 8:56 PM CDT LABORATORY Phosphorus 2.9 2.3 - 4.7 04/10/2019 [facility] mg/dL 8:56 PM CDT LABORATORY Glucose 94 70 - 100 04/10/2019 [facility] mg/dL 8:56 PM CDT LABORATORY Comment: The [...] 4:29 Unknown PM CDT PM CDT Narrative [facility] - 04/10/2019 8:56 PM CDT The National Kidney Disease Education Pr ogram suggests measuring Cystatin C in patients with eGFRcrea of 45 to 59 ml/mi n/1.73^2 who do not have other markers of kidney damage (i.e. elevated urine Album in/Creatinine Ratio or a prior Cystatin C confirming the presence of chronic kidne y disease). Terrecne Hernandez MD LAB_1 Performing Organization Address City/State/ZIP Code Phon e Number [facility] [address] [place] [address] [facility] [address] [place] [address], [facility] documented in this encounter Visit Diagnoses Diagnosis Anginal pain (HRC) - Primary Other and unspecified angina pectoris Chronic kidney disease, stage III (moder ate) (HRC) Chronic kidney disease, Stage III (moder ate) Essential hypertension (HRC) Unspecified essential hypertension documented in this encounter Care Teams Button Broacher Relationship Specialty Start Date End Date Sunny Giraldo MD PCP - General Family Practice 02/21/17 08/08/20 [address] [place] [address] documented as of this encounter
--- OUTSIDE RECORDS SUMMARY | 2022-06-28 08:56 | XMS_ITS | Encounter Summary ---
:1960 Author Organization [facility] Address [address] [place] [address] Care Team Providers Name Role Phone Pita Giraldo MD Primary Care Provider Reason for Visit Reason Comments Refill metFORMIN (GLUCOPHAGE) 500 M G tablet [Pharmacy Med Name: METFORMIN HCL 500 MG TABLET] Encounter Details Date Type Department Care Team Description 10/16/2018 Refill [facility] Pita Giraldo MD Refill (metFORMIN Diabet [address] (GLUCOPHAGE) 500 MG [address] [place] [address] tablet [Pharmacy Med [place], [place] [address] Name: METFORMIN HCL [id number] MG TABLET ]) Social History Tobacco Use Types Packs/Day Years Used Date Smoking Tobacco: Never Smokeless Tobacco: Never Alcohol Use Standard Drinks/Week Comments Yes 0 (1 standard drink = 0.6 oz pure Alcoho lic Drinks/day: Amount:1-2 alcohol) drinks; Freq:=< Curt hly; Sex Assigned at Date Recorded Not on file documented as of this encounter Nursing Notes Neel Mccain, RN - 10/16/2018 7:58 AM CDT Renewed medication per medication refill protocol. Requested Prescriptions Pending Prescriptions Disp Refills metFORMIN (GLUCOPHAGE) 500 MG tablet [Pharmacy Med Name: METFORMIN HCL 500 MG TABLET] 360 Tablet 0 Sig: TAKE 2 TABLETS BY MOUTH TWICE A DAY Interface, Out High Tower Software Prov Query - 10/16/2018 7:34 AM CDT [...] : 5.5 % on 07/07/2018 Powered by [employer], Reference: [id number], 10/16/2018 7:34:21 AM CDT, Pool: JEANNIE FP REFILL ([id number]) documented in this encounter Plan of Treatment Not on filedocumented as of this encounter Goals Goal Patient Goal Associated Recent Patient-Stated? Author Type Problems Progress Eating Diabetes On track Kelin Lam healthy Education (05/30/2017 ASHIA Crews, 4:29 PM [employer] DIRECTOR) ASHLEY, CHEIKH Note: Formatting of this note might be d ifferent from the original. Count carbohydrates at meals and snacks. documented as of this encounter Visit Diagnoses Not on filedocumented in this encounter Care Teams Genetic Counsellor Relationship Specialty Start Date End Date Pita Giraldo MD PCP - General Family Practice 02/21/17 08/08/20 [address] [place] [address] documented as of this encounter
--- OUTSIDE RECORDS SUMMARY | 2022-06-28 08:56 | XMS_ITS | Encounter Summary ---
:1960 Author Organization [employer] Address [address] [place] [address] Care Team Providers Name Role Phone Sunny Giraldo MD Primary Care Provider Reason for Visit Reason Comments Orders Needed Glucose monitor Encounter Details Date Type Department Care Team Description 01/27/2019 Telephone [facility] Sunny Giraldo M D Orders Needed (Glucose Medicine [address] monitor) [address] [place] [address] [place], [place] [phone] (Wo rk) [address] [phone] Social History Tobacco Use Types Packs/Day Years Used Date Smoking Tobacco: Never Smokeless Tobacco: Never Alcohol Use Standard Drinks/Week Comments Yes 0 (1 standard drink = 0.6 oz pure Alcoho lic Drinks/day: Amount:1-2 alcohol) drinks; Freq:=< Curt hly; Sex Assigned at Date Recorded Not on file documented as of this encounter Nursing Notes Kianna Page LPN - 01/27/2019 4:45 PM CDT Pat notified per phone, states understanding. Alem Villeda - 01/27/2019 9:09 AM CDT Orders - Specialty/Other What order is being requested? Pt needs a new glucose reader. Why is this order being requested? Pt has diabetes. When were you seen last for this concern? By whom? N/A Additional comments (related to the above concern): Pt's is calling for Pt about getting a new glucose reading from the PCP. The old Glucose reading batter had and they need a new one from the doctor for insurance to pay for it. Pt's would a call back as soon as possible . Is it okay to leave a detailed message on your voicemail? Yes (Advise caller that the PN call back number will end with [phone] or unknown) Please route to: YVONNE Garcia documented in this encounter Plan of Treatment Not on filedocumented as of this encounter Goals Goal Patient Goal Associated Recent Patient-Stated? Author Type Problems Progress Eating Diabetes On track No Genaro healthy Education (05/30/2017 ASHIA Crews, 4:29 PM TAX REVENUE OFFICER) ASHLEY, CHEIKH Note: Formatting of this note might be d ifferent from the original. Count carbohydrates at meals and snacks. documented as of this encounter Visit Diagnoses Diagnosis Uncontrolled type 2 diabetes mellitus wi th hyperglycemia, without long-term current use of insulin (HRC) documented in this encounter Care Teams Contractor General Engineering Relationship Specialty Start Date End Date Sunny Giraldo MD PCP - General Family Practice 02/21/17 08/08/20 [address] [place] [address] documented as of this encounter
--- OUTSIDE RECORDS SUMMARY | 2022-06-28 08:56 | XMS_ITS | Encounter Summary ---
:1960 Author Organization [facility] Address [address] [place] [address] Care Team Providers Name Role Phone Pita Grialdo MD Primary Care Provider Reason for Visit Reason Comments Refill atorvastatin (LIPITOR) 20 MG tablet [Pharmacy Med Name: ATORVASTATIN 20 MG TABLET] Encounter Details Date Type Department Care Team Description 04/20/2019 Refill [facility] Pita Giraldo MD Refill (atorvastatin [address] (LIPITOR) 20 MG tablet [place], [place] [address] [Pharmacy Med Name: [id number] ATORVASTATIN 20 MG [id number] TABLET]) Social History Tobacco Use Types Packs/Day [...] 1 TAB BY MOUTH DAILY. Interface, Out Bitstamp Query - 04/20/2019 2:14 AM CDT atorvastatin [...] visit: 04/25/2019 (in Family Practice) Powered by [employer], Reference: [id number], 04/20/2019 2:14:41 AM CDT, Pool: JO REFILL ([id number]) documented in this encounter Plan of Treatment Not on filedocumented as of this encounter Goals Goal Patient Goal Associated Recent Patient-Stated? Author Type Problems Progress Eating Diabetes On track No Genaro healthy Education (05/30/2017 ASHIA Crews, 4:29 PM CONFIGURATION TECHNICIAN) ASHLEY, CHEIKH Note: Formatting of this note might be d ifferent from the original. Count carbohydrates at meals and snacks. documented as of this encounter Visit Diagnoses Not on filedocumented in this encounter Care Teams On Air Personality Relationship Specialty Start Date End Date Pita Giraldo MD PCP - General Family Practice 02/21/17 08/08/20 [address] [place] [address] documented as of this encounter
--- OUTSIDE RECORDS SUMMARY | 2022-06-28 08:56 | XMS_ITS | Encounter Summary ---
:1960 Author Organization [facility] Address [address] [address] Care Team Providers Name Role Phone Sunny Giraldo MD Primary Care Provider Reason for Visit Reason Comments IMMUNIZATION QUESTIONS Encounter Details Date Type Department Care Team Description 09/24/2018 Telephone [facility] Sunny Giraldo M D IMMUNIZATION QUESTIONS [facility] [address] [facility] [address] [place] [address] [place], [place] [phone] (Wo rk) [address] [phone] Social History Tobacco Use Types Packs/Day Years [...] to: Appropriate pool per call routing grid [employer]PL[employer] documented in this encounter Plan of Treatment Not on filedocumented as of this encounter Goals Goal Patient Goal Associated Recent Patient-Stated? Author Type Problems Progress Eating Diabetes On track No Genaro healthy Education (05/30/2017 ASHIA Crews, 4:29 PM OPERATOR SUPPLY) ASHLEY, CHEIKH Note: Formatting of this note might be d ifferent from the original. Count carbohydrates at meals and snacks. documented as of this encounter Visit Diagnoses Not on filedocumented in this encounter Care Teams Administrative Technician Relationship Specialty Start Date End Date Sunny Giraldo MD PCP - General Family Practice 02/21/17 08/08/20 [address] [place] [address] documented as of this encounter
--- OUTSIDE RECORDS SUMMARY | 2022-06-28 08:56 | XMS_ITS | Encounter Summary ---
:1960 Author Organization [facility] Address [address] [place] [address] Care Team Providers Name Role Phone Sunny Giraldo MD Primary Care Provider Encounter Details Date Type Department Care Team Description 04/14/2019 Notes/Orders Specialty Center [address] [place] Hernandez MD CKD (chronic kidney Nephrology [address] disease) stage 3, GFR 3931 [facility] [address] 30-59 ml/min (HRC) [place], [place] ([place] Dx) [phone] (Wo rk) Social History Tobacco Use Types [...] healthy Education (05/30/2017 ASHIA Crews, 4:29 PM TUBE DEPATCHER) ASHLEY, CHEIKH Note: Formatting of this note might be d ifferent from the original. Count carbohydrates at meals and snacks. documented as of this encounter Results (ABNORMAL) Renal Function Panel - in 4 months (08/18/2019 11:20 AM TUBE DEPATCHER) [facility] gist Method Time Signature Sodium 140 136 - 145 08/18/2019 [facility] mmol/L 6:00 PM [facility] Potassium 4.5 3.5 - 5.1 08/18/2019 [facility] mmol/L 6:00 PM [facility] Chloride 101 98 - 109 08/18/2019 [facility] mmol/L 6:00 PM [facility] CO2 25 20 - 29 08/18/2019 [facility] mmol/L 6:00 PM [facility] Anion Gap 14 7 - 16 08/18/2019 [facility] mmol/L 6:00 PM [facility] Calcium 10.6 (H) 8.4 - 10.4 08/18/2019 [facility] mg/dL 6:00 PM [facility] BUN 20 7 - 26 08/18/2019 [facility] mg/dL 6:00 PM [facility] Creatinine 1.50 (H) 0.73 - 08/18/2019 [facility] 1.18 mg/dL 6:00 PM [facility] GFR, Estimated 51 (L) >60 08/18/2019 [facility] mL/min/1.7 6:00 PM [facility] 3m2 GFR, Est If 59 (L) >60 08/18/2019 [facility] mL/min/1.7 6:00 PM [facility] Senegalese 3m2 Albumin 4.8 3.5 - 5.0 08/18/2019 [facility] g/dL 6:00 PM [facility] Phosphorus 4.1 2.3 - 4.7 08/18/2019 [facility] mg/dL 6:00 PM [facility] Glucose 99 70 - 100 08/18/2019 [facility] mg/dL 6:00 PM [facility] Comment: The given reference range is fo r the fasting state. Non-fasting reference range for glucose is 70 - 180 mg/dL. Hours Fasting 12 08/18/2019 6:00 PM TUBE DEPATCHER [facility] Specimen Anatomical Collection Method / Collection Time Recei katherine Time (Source) Location / Volume Laterality Blood Venipuncture / 08/18/2019 11:20 0 Unknown AM TUBE DEPATCHER 11:21 AM TUBE DEPATCHER Narrative [facility] - 08/18/2019 6:00 PM TUBE DEPATCHER The National Kidney Disease Education Pr ogram suggests measuring Cystatin C in patients with eGFRcrea of 45 to 59 ml/mi n/1.73^2 who do not have other markers of kidney damage (i.e. elevated urine Album in/Creatinine Ratio or a prior Cystatin C confirming the presence of chronic kidne y disease). Terrence Hernandez MD LAB_1 Performing Organization Address City/State/ZIP Code Phon e Number [facility] [address] [place] [address] [facility] [address] [place] [address], [facility] documented in this encounter Visit Diagnoses Diagnosis CKD (chronic kidney disease) stage 3, GF R 30-59 ml/min (HRC) - Primary Chronic kidney disease, Stage III (moder ate) documented in this encounter Care Teams Brake Drum Molder Relationship Specialty Start Date End Date Sunny Giraldo MD PCP - General Family Practice 02/21/17 08/08/20 [address] [place] [address] documented as of this encounter
--- OUTSIDE RECORDS SUMMARY | 2022-06-28 08:56 | XMS_ITS | Encounter Summary ---
:1960 Author Organization [employer] Address [address] [place] [address] Care Team Providers Name Role Phone Sunny Giraldo MD Primary Care Provider Reason for Visit Reason Comments LAB RESULTS Encounter Details Date Type Department Care Team Description 07/09/2018 Telephone [facility] Sunny Sawyer MD LAB RESULTS [address] [address] [place] [address] [place] [address] [phone] (Wo rk) Social History Tobacco Use Types [...] up in 6 mo. Patient verbalized understanding. EN FOOD DEPARTMENT MANAGER Brooke Beatty LPN - 07/09/2018 5:31 PM CST ----- Message from Sunny Giraldo MD sent at 07/09/2018 3:49 PM FROZEN FOOD DEPARTMENT MANAGER ----- No change stable follow up in 6 months if concern any time. EN FOOD DEPARTMENT MANAGER documented in this encounter Plan of Treatment Not on filedocumented as of this encounter Goals Goal Patient Goal Associated Recent Patient-Stated? Author Type Problems Progress Eating Diabetes On track No Genaro, healthy Education (05/30/2017 ASHIA Crews, 4:29 PM FROZEN FOOD DEPARTMENT MANAGER) ASHLEY, CHEIKH Note: Formatting of this note might be d ifferent from the original. Count carbohydrates at meals and snacks. documented as of this encounter Visit Diagnoses Not on filedocumented in this encounter Care Teams Umbrella Tipper Machine Relationship Specialty Start Date End Date Sunny Giraldo MD PCP - General Family Practice 02/21/17 08/08/20 [address] [place] [address] documented as of this encounter
--- OUTSIDE RECORDS SUMMARY | 2022-06-28 08:56 | XMS_ITS | Encounter Summary ---
:1960 Author Organization [employer] Address [address] [place] [address] Care Team Providers Name Role Phone Sunny Giraldo MD Primary Care Provider Reason for Visit Reason Comments ROUTINE HEALTH MAINTENANCE Encounter Details Date Type Department Care Team Description 09/26/2018 Telephone [facility] Sunny Giraldo M D ROUTINE HEALTH Medicine [address] MAINTENANCE [address] [place] [address] [place], [place] [phone] (Wo rk) [address] [phone] Social History Tobacco Use Types Packs/Day Years [...] that no labs were still requirefrom provider. Denisha Schreiber - 09/26/2018 10:05 AM CST Miscellaneous Questions [...] to: Appropriate pool per call routing grid ARCH SOIL SCIENTIST documented in this encounter Plan of Treatment Not on filedocumented as of this encounter Goals Goal Patient Goal Associated Recent Patient-Stated? Author Type Problems Progress Eating Diabetes On track No rachel Lam Education (05/30/2017 ASHIA Crews, 4:29 PM RESEARCH SOIL SCIENTIST) ASHLEY, CHEIKH Note: Formatting of this note might be d ifferent from the original. Count carbohydrates at meals and snacks. documented as of this encounter Visit Diagnoses Not on filedocumented in this encounter Care Teams Community Health Director Relationship Specialty Start Date End Date Sunny Giraldo MD PCP - General Family Practice 02/21/17 08/08/20 [address] [place] [address] documented as of this encounter
--- OUTSIDE RECORDS SUMMARY | 2022-06-28 08:56 | XMS_ITS | Encounter Summary ---
:1960 Author Organization [employer] Address [address] [place] [address] Care Team Providers Name Role Phone Sunny Giraldo MD Primary Care Provider Encounter Details Date Type Department Care Team Description 08/18/2019 Lab Visit [facility] [place] CKD (chronic kidney [address] disease) stage 3, GFR 30-59 [place] [address] ml/min (HRC) [phone] Social History Tobacco Use Types Packs/Day Years [...] healthy Education (05/30/2017 ASHIA Crews, 4:29 PM FISHER TRAWL NET) ASHLEY, CHEIKH Note: Formatting of this note might be d ifferent from the original. Count carbohydrates at meals and snacks. documented as of this encounter Procedures Procedure Name Priority Date/Time Associated Diagnosis Comme nts RENAL FUNCTION Routine 08/18/2019 11:20 AM CKD (chronic kidney Results for this PANEL [facility] TRAWL [employer] disease) stage 3, procedure are in GFR 30-59 ml/min the results (HRC) section. documented in this encounter Results (ABNORMAL) Renal Function Panel - in 4 months (08/18/2019 11:20 AM [facility] TRAWL NET) [facility] gist Method Time Signature Sodium 140 136 - 145 08/18/2019 [facility] mmol/L 6:00 PM [facility] Potassium 4.5 3.5 - 5.1 08/18/2019 [facility] mmol/L 6:00 PM [facility] Chloride 101 98 - 109 08/18/2019 [facility] mmol/L 6:00 PM [facility] CO2 25 20 - 29 08/18/2019 [facility] mmol/L 6:00 PM [facility] Anion Gap 14 7 - 16 08/18/2019 [facility] mmol/L 6:00 PM [facility] Calcium 10.6 (H) 8.4 - 10.4 08/18/2019 [facility] mg/dL 6:00 PM [facility] BUN 20 7 - 26 08/18/2019 [facility] mg/dL 6:00 PM [facility] Creatinine 1.50 (H) 0.73 - 08/18/2019 [facility] 1.18 mg/dL 6:00 PM [facility] GFR, Estimated 51 (L) >60 08/18/2019 [facility] mL/min/1.7 6:00 PM [facility] 3m2 GFR, Est If 59 (L) >60 08/18/2019 [facility] mL/min/1.7 6:00 PM [facility] Lithuanian 3m2 Albumin 4.8 3.5 - 5.0 08/18/2019 [facility] g/dL 6:00 PM [facility] Phosphorus 4.1 2.3 - 4.7 08/18/2019 [facility] mg/dL 6:00 PM [facility] Glucose 99 70 - 100 08/18/2019 [facility] mg/dL 6:00 PM [facility] Comment: The given reference range is fo r the fasting state. Non-fasting reference range for glucose is 70 - 180 mg/dL. Hours Fasting 12 08/18/2019 6:00 PM [facility] Specimen Anatomical Collection Method / Collection Time Recei katherine Time (Source) Location / Volume Laterality Blood Venipuncture / 08/18/2019 11:20 0 Unknown AM [facility] 11:21 AM [facility] TRAWL NET Narrative [facility] - 08/18/2019 6:00 PM FISHER TRAWL NET The National Kidney Disease Education Pr ogram suggests measuring Cystatin C in patients with eGFRcrea of 45 to 59 ml/mi n/1.73^2 who do not have other markers of kidney damage (i.e. elevated urine Album in/Creatinine Ratio or a prior Cystatin C confirming the presence of chronic kidne y disease). Terrence Hernandez MD LAB_1 Performing Organization Address City/State/ZIP Code Phon e Number [facility] [address] [place] [address] [address] [facility] [address] [place] [address], [facility] documented in this encounter Visit Diagnoses Diagnosis CKD (chronic kidney disease) stage 3, GF R 30-59 ml/min (HRC) Chronic kidney disease, Stage III (moder ate) documented in this encounter Care Teams Press Maintainer Relationship Specialty Start Date End Date Sunny Giraldo MD PCP - General Family Practice 02/21/17 08/08/20 [address] [place] [address] documented as of this encounter
--- OUTSIDE RECORDS SUMMARY | 2022-06-28 08:56 | XMS_ITS | Encounter Summary ---
:1960 Author Organization [employer] Address [address] [place] [address] Care Team Providers Name Role Phone Pita Giraldo MD Primary Care Provider Reason for Visit Reason Onset Date Comments Refill 01/05/2019 metFORMIN (GLUCOPHAG E) 500 MG tablet Encounter Details Date Type Department Care Team Description 01/05/2019 Refill [facility] Pita Giraldo M D Refill (metFORMIN Medicine [address] (GLUCOPHAGE) [address] [place] [address] tablet) [place], [place] [phone] (Wo rk) [address] [phone] Social History Tobacco Use Types Packs/Day Years [...] day. Interface, Out Surescripts Prov Query - 01/05/2019 8:24 AM CDT [...] (Sent to [facility]) Powered by [employer], Reference: [id number], 01/05/2019 8:24:17 AM CDT, Pool: PN REFILL WIZARD ADMIN ([id number]) documented in this encounter Plan of Treatment Not on filedocumented as of this encounter Goals Goal Patient Goal Associated Recent Patient-Stated? Author Type Problems Progress Eating Diabetes On track No Genaro healthy Education (05/30/2017 ASHIA Crews, 4:29 PM ACCOUNTANT) ASHLEY, CHEIKH Note: Formatting of this note might be d ifferent from the original. Count carbohydrates at meals and snacks. documented as of this encounter Visit Diagnoses Not on filedocumented in this encounter Care Teams Truer Pinion And Wheel Relationship Specialty Start Date End Date Pita Giraldo MD PCP - General Family Practice 02/21/17 08/08/20 [address] [place] [address] documented as of this encounter
--- OUTSIDE RECORDS SUMMARY | 2022-06-28 08:56 | XMS_ITS | Encounter Summary ---
:1960 Author Organization [employer] Address [address] [place] [address] Care Team Providers Name Role Phone Pita Giraldo MD Primary Care Provider Reason for Visit Reason Comments Refill chlorthalidone (HYGROTON) 25 MG tablet [Pharmacy Med Name: CHLORTHALIDONE 25 MG TABLET] Encounter Details Date Type Department Care Team Description 03/03/2019 Refill [facility] Pita Giraldo M D Refill (chlorthalidone Medicine [address] (HYGROTON) 25 MG tablet [address] [place] [address] [Pharmacy Med Name: [place], [place] [phone] (Wo rk) CHLORTHALIDONE 25 [place] [id number] TABLET]) [phone] Social History Tobacco Use Types Packs/Day Years [...] K: 4 mEq/L on 02/19/2019 Powered by [employer], Reference: [id number], 03/03/2019 1:31:41 AM CDT, Pool: JO REFILL ([id number]) documented in this encounter Plan of Treatment Not on filedocumented as of this encounter Goals Goal Patient Goal Associated Recent Patient-Stated? Author Type Problems Progress Eating Diabetes On track No Genaro healthy Education (05/30/2017 ASHIA Cerws, 4:29 PM OPERATIONS MANAGER ASSISTANT) ASHLEY, CHEIKH Note: Formatting of this note might be d ifferent from the original. Count carbohydrates at meals and snacks. documented as of this encounter Visit Diagnoses Diagnosis Chronic kidney disease, stage III (moder ate) ([facility]) Chronic kidney disease, Stage III (moder ate) documented in this encounter Care Teams Retail Representative Relationship Specialty Start Date End Date Pita Giraldo MD PCP - General Family Practice 02/21/17 08/08/20 [address] [place] [address] documented as of this encounter
--- OUTSIDE RECORDS SUMMARY | 2022-06-28 08:56 | XMS_ITS | Encounter Summary ---
:1960 Author Organization [employer] Address [address] [place] [address] Care Team Providers Name Role Phone Pita Giraldo MD Primary Care Provider Reason for Visit Reason Comments Refill chlorthalidone (HYGROTON) 25 MG tablet [Pharmacy Med Name: CHLORTHALIDONE 25 MG TABLET] Encounter Details Date Type Department Care Team Description 12/03/2018 Refill [facility] Pita Giraldo M D Refill (chlorthalidone Medicine [address] (HYGROTON) 25 MG tablet [address] [place] [address] [Pharmacy Med Name: [place], [place] [phone] (Wo rk) CHLORTHALIDONE 25 MG [id number] TABLET]) [phone] Social History Tobacco Use Types Packs/Day Years [...] 1 TABLET BY MOUTH DAILY. Interface, Out Socialmoth Query - 12/03/2018 1:55 AM CDT chlorthalidone [...] K: 3.7 mEq/L on 07/07/2018 Powered by [employer], Reference: [id number], 12/03/2018 1:55:24 AM CDT, Pool: JO REFILL ([id number]) documented in this encounter Plan of Treatment Not on filedocumented as of this encounter Goals Goal Patient Goal Associated Recent Patient-Stated? Author Type Problems Progress Eating Diabetes On track No Genaro healthy Education (05/30/2017 ASHIA Crews, 4:29 PM MATERIAL HANDLER 2ND SHIFT) CHEIKH RAMIREZ Note: Formatting of this note might be d ifferent from the original. Count carbohydrates at meals and snacks. documented as of this encounter Visit Diagnoses Diagnosis Chronic kidney disease, stage III (moder ate) ([facility]) Chronic kidney disease, Stage III (moder ate) documented in this encounter Care Teams Chip Mucker Relationship Specialty Start Date End Date Pita Giraldo MD PCP - General Family Practice 02/21/17 08/08/20 [address] [place] [address] documented as of this encounter
--- OUTSIDE RECORDS SUMMARY | 2022-06-28 08:56 | XMS_ITS | Encounter Summary ---
:1960 Author Organization [employer] Address [address] [place] [address] Care Team Providers Name Role Phone Pita Giraldo MD Primary Care Provider Reason for Visit Reason Onset Date Comments Refill 10/01/2018 losartan (COZAAR) 25 MG tablet Encounter Details Date Type Department Care Team Description 10/01/2018 Refill [facility] Pita Giraldo M D Refill (losartan Medicine [address] (COZAAR) 25 MG tablet) [address] [place] [address] [place], [place] [phone] (Wo rk) [address] [phone] Social History Tobacco Use Types Packs/Day Years Used Date Smoking Tobacco: Never Smokeless Tobacco: Never Alcohol Use Standard Drinks/Week Comments Yes 0 (1 standard drink = 0.6 oz pure Alcoho lic Drinks/day: Amount:1-2 alcohol) drinks; Freq:=< Curt hly; Sex Assigned at Date Recorded Not on file documented as of this encounter Nursing Notes Neel Mccain RN - 10/02/2018 9:17 AM CDT Renewed medication per medication refill protocol. Requested Prescriptions Pending Prescriptions Disp Refills losartan (COZAAR) 25 MG tablet 90 Tablet 1 Sig: Take 1 Tablet by mouth daily. Interface, Out Surescripts Prov Query - 10/01/2018 4:58 PM CDT [...] K: 3.7 mEq/L on 07/07/2018 Powered by [employer], Reference: [id number], 10/01/2018 4:58:08 PM CDT, Pool: JO REFILL ([id number]) documented in this encounter Plan of Treatment Not on filedocumented as of this encounter Goals Goal Patient Goal Associated Recent Patient-Stated? Author Type Problems Progress Eating Diabetes On track No Genaro healthy Education (05/30/2017 ASHIA Crews, 4:29 PM TABLE WORKER) ASHLEY, CHEIKH Note: Formatting of this note might be d ifferent from the original. Count carbohydrates at meals and snacks. documented as of this encounter Visit Diagnoses Diagnosis Chronic kidney disease, stage III (moder ate) ([facility]) Chronic kidney disease, Stage III (moder ate) documented in this encounter Care Teams Sports Book Board Attendant Relationship Specialty Start Date End Date Pita Giraldo MD PCP - General Family Practice 02/21/17 08/08/20 [address] [place] [address] documented as of this encounter
--- OUTSIDE RECORDS SUMMARY | 2022-06-28 08:56 | XMS_ITS | Encounter Summary ---
:1960 Author Organization [employer] Address [address] [place] [address] Care Team Providers Name Role Phone Pita Giraldo MD Primary Care Provider Encounter Details Date Type Department Care Team Description 01/05/2019 Refill Order [facility] [place] [address] [facility] [address] [place] [address] [place], [place] [phone] (Wo rk) Social History Tobacco Use Types [...] be addressed at future visit. Interface, Out Surescripts Prov Query - 01/05/2019 8:24 AM CDT SCHEDULE THE FOLLOWING: - HBA1C (PN ONLY) BY: Now (Due as of 01/03/2019 for metFORMIN (GLUCOPHAGE) 500 MG tablet) - LAST QUALIFYING VISIT WITH PITA GIRALDO: 02/25/2018 - NEXT SCHEDULED VISIT: None - NEXT LAB APPOINTMENT: None Powered by [employer], Reference: [id number], 01/05/2019 8:24:18 AM CDT, Pool: PN REFILL WIZARD ADMIN ([id number]) documented in this encounter Plan of Treatment Not on filedocumented as of this encounter Goals Goal Patient Goal Associated Recent Patient-Stated? Author Type Problems Progress Eating Diabetes On track No Genaro Bouncefootball Education (05/30/2017 ASHIA Crews, 4:29 PM DAMPENER OPERATOR) ASHLEY, CHEIKH Note: Formatting of this note might be d ifferent from the original. Count carbohydrates at meals and snacks. documented as of this encounter Visit Diagnoses Diagnosis Encounter for long-term (current) use of medications - Primary Encounter for long-term (current) use of other medications documented in this encounter Care Teams Technology Sales Consultant Relationship Specialty Start Date End Date Pita Giraldo MD PCP - General Family Practice 02/21/17 08/08/20 [address] [place] [address] documented as of this encounter
--- OUTSIDE RECORDS SUMMARY | 2022-06-28 08:56 | XMS_ITS | Encounter Summary ---
:1960 Author Organization [employer] Address [address] [place] [address] Care Team Providers Name Role Phone Pita Giraldo MD Primary Care Provider Reason for Visit Reason Comments Refill metFORMIN (GLUCOPHAGE) 500 M G tablet [Pharmacy Med Name: METFORMIN HCL 500 MG TABLET] Encounter Details Date Type Department Care Team Description 05/05/2018 Refill [facility] Pita Giraldo MD Refill (metFORMIN Diabet [address] (GLUCOPHAGE) 500 MG [address] [place] [address] tablet [Pharmacy Med [place], [place] [address] Name: METFORMIN HCL 500 [phone] MG TABLET ]) Social History Tobacco Use [...] : 5.5 % on 02/25/2018 Powered by [employer], Reference: [id number], 05/05/2018 9:26:33 AM CDT, Pool: JEANNIE FP REFILL ([id number]) DCARE TEACHER documented in this encounter Plan of Treatment Not on filedocumented as of this encounter Goals Goal Patient Goal Associated Recent Patient-Stated? Author Type Problems Progress Eating Diabetes On track No Genaro healthy Education (05/30/2017 ASHIA Crews, 4:29 PM CHILDCARE TEACHER) ASHLEY, CHEIKH Note: Formatting of this note might be d ifferent from the original. Count carbohydrates at meals and snacks. documented as of this encounter Visit Diagnoses Diagnosis Type 2 diabetes mellitus without complic ation, without long-term current use of insulin (HRC) documented in this encounter Care Teams Commercial Lending Vice President Relationship Specialty Start Date End Date Pita Giraldo MD PCP - General Family Practice 02/21/17 08/08/20 [address] [place] [address] documented as of this encounter
--- OUTSIDE RECORDS SUMMARY | 2022-06-28 08:56 | XMS_ITS | Encounter Summary ---
:1960 Author Organization [email or web address] Address [address] [place] [address] Care Team Providers Name Role Phone Sunny Giraldo MD Primary Care Provider Reason for Referral (Routine) - Closed Specialty Diagnoses / Procedures Referred By Contact Refer red To Contact Diagnoses Anginal pain (HRC) Eva Hernandez MD Procedures Stress Echocardiogram [address] [facility] [address] [place], [place] [address] Referral ID Status Reason Start Date Expiration Date Visits Requ ested Visits Authorized [id number] Closed 03/03/2019 06/01/2020 1 1 Reason for Visit Reason Comments Orders Needed Encounter Details Date Type Department Care Team Description 03/03/2019 Notes/Orders [facility] 39[address] Newton Hernandez MD Anginal pain (HRC) Nephrology [address] [facility] (Primary Dx) [address] [facility] [address] [place] [phone] (Wo rk) Social History Tobacco Use Types [...] healthy Education (05/30/2017 ASHIA Crews, 4:29 PM BRAZER REPAIR AND SALVAGE) CHEIKH RAMIREZ Note: Formatting of this note [...] HR: 163 bpm ? HR BP Product: 24819 % of Max Predicted HR: 93 ? [...] DEMOGRAPHICS Patient Name ?? BRENNEN MORENO ??Room [facility] ?OUTPT ?G Patient Number [id number] ? Date o f Study ?03/12/2019 Accession ?[id number] ?Int erpreting ? JOHN HOLLAND, Number ?Physician ? Date of ??1960 ? [place] lay Physician EVA HERNANDEZ MD Primary ?EVA HERNANDEZ Physician ? School Guard ?HAYDEN, RDCS Nurse ?MANOLO, plant hr manager Note John Holland MD - 03/12/2019For matting [...] HR: 163 bpm HR BP Product : 54522 % of Max Predicted HR: 93 Max [...] MORENO Room Number OUTPT G Patient Number [id number] Date of Study 0 03/12/2019 Interpreting Seb ESPANA MD Date of 1960 Ordering Physi roque HERNANDEZ MD Primary EVA HERNANDEZ Physician School Guard HAYDEN, RDCS Nurse MANOLO, RN Eva Hernandez MD ET ECHO ORDERABLES Performing Organization Address City/State/ZIP Code Phon e Number [facility] documented in this encounter Visit Diagnoses Diagnosis Anginal pain (HRC) - Primary Other and unspecified angina pectoris Anginal pain (HRC) Other and unspecified angina pectoris documented in this encounter Care Teams Bacteriology Technician Relationship Specialty Start Date End Date Sunny Giraldo MD PCP - General Family Practice 02/21/17 08/08/20 [address] [place] [address] documented as of this encounter
--- OUTSIDE RECORDS SUMMARY | 2022-06-28 08:56 | XMS_ITS | Encounter Summary ---
:1960 Author Organization [employer] Address [address] [place] [address] Care Team Providers Name Role Phone Sunny Giraldo MD Primary Care Provider Encounter Details Date Type Department Care Team Description 04/10/2019 Lab Visit [facility] Chronic kidney disease, [address] [address] stage III (moderate) (HRC) [place] [address] Social History Tobacco Use [...] healthy Education (05/30/2017 ASHIA Crews, 4:29 PM DELIVERER OUTSIDE) ASHLEY, CHEIKH Note: Formatting of this note [...] in 1 month (04/10/2019 4:26 PM CDT) [facility] gist Method Time Signature Sodium 139 136 - 145 04/10/2019 [facility] mmol/L 8:56 PM CDT LABORATORY Potassium 3.9 3.5 - 5.1 04/10/2019 [facility] mmol/L 8:56 PM CDT LABORATORY Chloride 102 98 - 109 04/10/2019 [facility] mmol/L 8:56 PM CDT LABORATORY CO2 26 20 - 29 04/10/2019 [facility] mmol/L 8:56 PM CDT LABORATORY Anion Gap 11 7 - 16 04/10/2019 [facility] mmol/L 8:56 PM CDT LABORATORY Calcium 9.6 8.4 - 10.4 04/10/2019 [facility] mg/dL 8:56 PM CDT LABORATORY BUN 19 7 - 26 04/10/2019 [facility] mg/dL 8:56 PM CDT LABORATORY Creatinine 1.60 (H) 0.73 - 04/10/2019 [facility] 1.18 mg/dL 8:56 PM CDT LABORATORY GFR, Estimated 47 (L) >60 04/10/2019 [facility] mL/min/1.7 8:56 PM CDT LABORATORY 3m2 GFR, Est If 55 (L) >60 04/10/2019 [facility] mL/min/1.7 8:56 PM CDT LABORATORY Palestinian 3m2 Albumin 4.3 3.5 - 5.0 04/10/2019 [facility] g/dL 8:56 PM CDT LABORATORY Phosphorus 2.9 2.3 - 4.7 04/10/2019 [facility] mg/dL 8:56 PM CDT LABORATORY Glucose 94 70 - 100 04/10/2019 [facility] mg/dL 8:56 PM CDT LABORATORY Comment: The [...] 4:29 Unknown PM CDT PM CDT Narrative [facility] - 04/10/2019 8:56 PM CDT The [...] Organization Address City/State/ZIP Code Phon e Number [facility] [address] [place] [address] [facility] [address] [place] [address], [phone] [facility] documented in this encounter Visit Diagnoses Diagnosis Chronic kidney disease, stage III (moder ate) ([facility]) Chronic kidney disease, Stage III (moder ate) documented in this encounter Care Teams Rubber Printing Machine Operator Relationship Specialty Start Date End Date Sunny Giraldo MD PCP - General Family Practice 02/21/17 08/08/20 [address] [place] [address] documented as of this encounter
--- OUTSIDE RECORDS SUMMARY | 2022-06-28 08:56 | XMS_ITS | Encounter Summary ---
:1960 Author Organization [employer] Address [address], [place] [address] Care Team Providers Name Role Phone Sunny Giraldo MD Primary Care Provider Reason for Visit Reason Comments IMMUNIZATIONS Encounter Details Date Type Department Care Team Description [facility]/06[facility]2018 [facility] [address] [place] [address] Social History Tobacco Use [...] healthy Education (05/30/2017 ASHIA Crews, 4:29 PM FACEPIECE LINE SUPERVISOR) LD, CDCES Note: Formatting of this note might be d ifferent from the original. Count carbohydrates at meals and snacks. documented as of this encounter Visit Diagnoses Not on filedocumented in this encounter Care Teams Professional Skateboarder Relationship Specialty Start Date End Date Sunny Giraldo MD PCP - General Family Practice 02/21/17 08/08/20 [address] [place], [place] [address] documented as of this encounter
--- OUTSIDE RECORDS SUMMARY | 2022-06-28 08:56 | XMS_ITS | Encounter Summary ---
:1960 Author Organization [employer] Address [address] [place] [address] Care Team Providers Name Role Phone Sunny Giraldo MD Primary Care Provider Encounter Details Date Type Department Care Team Description 04/25/2019 Lab Visit [facility] Type 2 diabetes mellitus [address] without complication, [place] [address] without long-term current [phone] use of insulin (HRC) Social History Tobacco [...] healthy Education (05/30/2017 ASHIA Crews, 4:29 PM INSPECTOR BULLET SLUGS) ASHLEY, CHEIKH Note: Formatting of this note [...] Signature Hemoglobin A1C 5.6 <=5.6 % 04/26/2019 [facility] 10:41 AM CDT LABORATORY Specimen Anatomical Collection Method / Collection Time Recei katherine Time (Source) Location / Volume Laterality Blood Venipuncture / 04/25/2019 10:08 9 Unknown AM CDT 10:08 AM CDT Sunny Giraldo MD LAB_1 Performing Organization Address City/State/ZIP Code Phon e Number [facility] [address] [place] [address] (ABNORMAL) Lipid Panel - LDLD If Trig High (04/25/2019 10:08 AM CDT) [facility] Method Time Signature Cholesterol 146 0 - 199 04/25/2019 [facility] mg/dL 3:53 PM CDT LABORATORY Triglyceride 118 <=149 04/25/2019 [facility] mg/dL 3:53 PM CDT LABORATORY HDL Cholesterol 35 (L) >=40 mg/dL 04/25/2019 [facility] 3:53 PM CDT LABORATORY LDL, Calculated 87 <130 mg/dL 04/25/2019 [facility] 3:53 PM CDT LABORATORY Non HDL Chol, 111 <=159 04/25/2019 [facility] Calculated mg/dL 3:53 PM CDT LABORATORY Cholesterol/HDL 4.2 04/25/2019 [facility] Ratio 3:53 PM CDT LABORATORY Hours Fasting 15 04/25/2019 [facility] 3:53 PM CDT Specimen Anatomical Collection Method / Collection Time Recei katherine Time (Source) Location / Volume Laterality Blood Venipuncture / 04/25/2019 10:08 9 Unknown AM CDT 10:08 AM CDT Sunny Giraldo MD LAB_1 Performing Organization Address City/State/[facility] Code Phon e Number [facility] [address] [place] [address] [facility] [address] [place] [address], [phone] [facility] documented in this encounter Visit Diagnoses Diagnosis Type 2 diabetes mellitus without complic ation, without long-term current use of insulin (HRC) documented in this encounter Care Teams Scout Executive Relationship Specialty Start Date End Date Sunny Giraldo MD PCP - General Family Practice 02/21/17 08/08/20 [address] [place] [address] documented as of this encounter
--- OUTSIDE RECORDS SUMMARY | 2022-06-28 08:56 | XMS_ITS | Encounter Summary ---
:1960 Author Organization [employer] Address [address] [place] [address] Care Team Providers Name Role Phone Pita Giraldo MD Primary Care Provider Reason for Visit Reason Comments Refill atorvastatin (LIPITOR) 20 MG tablet [Pharmacy Med Name: ATORVASTATIN 20 MG TABLET] Encounter Details Date Type Department Care Team Description 07/11/2019 Refill [facility] Pita Giraldo MD Refill (atorvastatin [address] (LIPITOR) 20 MG tablet [place], [place] [address] [Pharmacy Med Name: [id number] ATORVASTATIN 20 MG [id number] TABLET]) Social History Tobacco Use Types Packs/Day [...] Sig: TAKE 1 TAB BY MOUTH DAILY. ERCIAL TITLE EXAMINER Interface, Out Ship & Duck Prov Query - 07/11/2019 12:48 AM CST [...] GIRALDO) Next scheduled visit: None Powered by Doc[employer], Reference: [id number], 07/11/2019 12:48:50 AM COMMERCIAL TITLE EXAMINER, Pool: JO REFILL ([id number]) ERCIAL TITLE EXAMINER documented in this encounter Plan of Treatment Not on filedocumented as of this encounter Goals Goal Patient Goal Associated Recent Patient-Stated? Author Type Problems Progress Eating Diabetes On track No Genaro healthy Education (05/30/2017 ASHIA Crews, 4:29 PM COMMERCIAL TITLE EXAMINER) CHEIKH RAMIREZ Note: Formatting of this note might be d ifferent from the original. Count carbohydrates at meals and snacks. documented as of this encounter Visit Diagnoses Not on filedocumented in this encounter Care Teams City Planning Teacher Relationship Specialty Start Date End Date Pita Giraldo MD PCP - General Family Practice 02/21/17 08/08/20 [address] [place] [address] documented as of this encounter
--- OUTSIDE RECORDS SUMMARY | 2022-06-28 08:56 | XMS_ITS | Encounter Summary ---
:1960 Author Organization [employer] Address [address] [place] [address] Care Team Providers Name Role Phone Sunny Giraldo MD Primary Care Provider Reason for Visit Reason Comments ANGINA (Routine) - Closed Specialty Diagnoses / Procedures Referred By Contact Refer red To Contact Diagnoses Anginal pain (HRC) Eva Hernandez MD Procedures Stress Echocardiogram [address] [facility] [address] [place], [place] [address] Referral ID Status Reason Start Date Expiration Date Visits Requ ested Visits Authorized [id number] Closed 03/03/2019 06/01/2020 1 1 Encounter Details Date Type Department Care Team Description 03/12/2019 Procedure Visit [place] Echocardi ogram ANGINA [address] [place] [address] Social History Tobacco Use Types [...] Type Problems Progress Eating Diabetes On track rachel Rivera Education (05/30/2017 ASHIA Crews, 4:29 PM TIP OUT WORKER) CHEIKH RAMIREZ Note: Formatting of this note might be d ifferent from the original. Count carbohydrates at meals and snacks. documented as of this encounter Procedures Procedure Name Priority Date/Time Associated Diagnosis Comme nts STRESS ECHO Routine 03/12/2019 11:02 AM Anginal pain (HRC) Re sults for this CDT procedure are i n the results section . documented in this encounter Results Stress Echocardiogram [...] HR: 163 bpm ? HR BP Product: 59345 % of Max Predicted HR: 93 ? [...] ??Room Nu mber ?OUTPT ?G Patient Number [id number] ? Date o f Study ?03/12/2019 Accession ?[id number] ?Int erpreting ? JOHN HOLLAND, Number ?Physician ? Date of ??1960 ? [facility] rosanne Physician EVA HERNANDEZ MD Primary ?EVA HERNANDEZ Physician ?MD ? Court Clerk ?[place], [facility] Nurse ?MANOLO, biomedical engineering technician Note John Holland MD - 03/12/2019For matting [...] HR: 163 bpm HR BP Product : 42905 % of Max Predicted HR: 93 Max [...] MORENO Room Number OUTPT G Patient Number [id number] Date of Study 0 03/12/2019 Interpreting Seb ESPANA Physician Date of 1960 Ordering Physi roque EVA HERNANDEZ MD Primary EVA HERNANDEZ Physician Court Clerk [place]AY[place], RDCS Nurse KH, RN Eva Hernandez MD ET ECHO ORDERABLES Performing Organization Address City/State/ZIP Code Phon e Number PN ECHO documented in this encounter Visit Diagnoses Diagnosis Anginal pain (HRC) Other and unspecified angina pectoris documented in this encounter Care Teams Brand Activation Manager Relationship Specialty Start Date End Date Sunny Giraldo MD PCP - General Family Practice 02/21/17 08/08/20 [address] [place] [address] documented as of this encounter
--- OUTSIDE RECORDS SUMMARY | 2022-06-28 08:57 | XMS_ITS | Encounter Summary ---
:1960 Author Organization [employer] Address [address] [place] [address] Care Team Providers Name Role Phone Sunny Giraldo MD Primary Care Provider Reason for Visit Reason Comments Lab Orders Needed Encounter Details Date Type Department Care Team Description 12/23/2017 Telephone [facility] 3931 Newton Hernandez MD Lab Orders Needed Nephrology 3931 [facility] 39[address] [facility] [address] [place] [id number] (Wo rk) Social History Tobacco Use Types [...] healthy Education (05/30/2017 ASHIA Crews, 4:29 PM COOK SUPERVISOR) ASHLEY, CHEIKH Note: Formatting of this [...] - 01/28/2018 2:36 PM CDT Performed at [facility], [address] [place] [address] CLIA number [id number] Terrence Hernandez MD LAB_1 Performing Organization Address City/State/ZIP Code Phon e Number PN SOFT [address] [place], [place] [address] Vitamin D (In house) - in 1 [...] - 01/28/2018 3:59 PM CDT Performed at [address] [address] CLIA number [id number] Terrence Hernandez MD LAB_1 Performing Organization Address [facility] Phon e Number PN SOFT [address] [place] [address] PTH - Parathyroid Hormone Intact - in 1 month (01/28/2018 11:42 AM CDT) P athologist Signature PTH 40 10 - 100 PN SOFT pg/mL Specimen Anatomical Collection Method Collection Time Receive d Time (Source) Location / / Volume Laterality 01/28/2018 11:42 01/28/2018 4:10 AM CDT PM CDT Narrative PN SOFT - 01/28/2018 4:54 PM CDT Performed at [address] [address] CLIA number [id number] Terrence Hernandez MD LAB_1 Performing Organization Address [facility] Phon e Number PN SOFT [address] [place] [address] Hemoglobin - in 1 month (01/28/2018 11:42 AM CDT) P athologist Signature Hemoglobin 14.7 13.4 - 17.5 PN SOFT g/dL Specimen Anatomical Collection Method Collection Time Receive d Time (Source) Location / / Volume Laterality 01/28/2018 11:42 01/28/2018 AM CDT 11:42 AM CDT Narrative PN SOFT - 01/28/2018 11:47 AM CDT Performed at [facility], [address] [place] [address] CLIA number [id number] Terernce Hernandez MD LAB_1 Performing Organization Address [facility] Phon e Number PN SOFT [address] [place] [address] (ABNORMAL) Renal Function Panel - in 1 month (01/28/2018 11:42 AM CDT) Analysis Performed At Patho logist Time Signature Glucose Non 106 70 - [...] - 01/28/2018 2:41 PM CDT Performed at [facility], [address] [place] [address] CLIA number [id number] Terrence Hernandez MD LAB_1 Performing Organization Address City/State/ZIP Code Phon e Number PN SOFT [address] [place] [address] documented in this encounter Visit Diagnoses Diagnosis Chronic kidney disease (CKD), stage III (moderate) (HRC) - Primary Chronic kidney disease, Stage III (moder ate) Chronic kidney disease (CKD), stage III (moderate) (HRC) Chronic kidney disease, Stage III (moder ate) documented in this encounter Care Teams Photo Finish Photographer Relationship Specialty Start Date End Date Sunny Giraldo MD PCP - General Family Practice 02/21/17 08/08/20 [address] [place] [address] documented as of this encounter
--- OUTSIDE RECORDS SUMMARY | 2022-06-28 08:57 | XMS_ITS | Encounter Summary ---
:1960 Author Organization [employer] Address [address] [place] [address] Care Team Providers Name Role Phone Sunny Giraldo MD Primary Care Provider Encounter Details Date Type Department Care Team Description 01/28/2018 Lab Visit [facility] Essential hypertension; [address] Hyperlipidemia, [place] [address] Social History Tobacco Use [...] healthy Education (05/30/2017 ASHIA Crews, 4:29 PM FLAME HARDENER) LD, CHEIKH Note: Formatting of this note [...] (01/28/2018 11:42 AM CDT) Analysis Performed At [facility] Time Signature Cholesterol 156 0 - 199 [...] - 01/28/2018 3:28 PM CDT Performed at [facility], [address] [place] [address] CLIA number [id number] Sunny Giraldo MD LAB_1 Performing Organization Address City/State/ZIP Code Phon e Number PN SOFT [address] [place] [address] (ABNORMAL) Basic Metabolic Panel (01/28/2018 11:42 AM CDT) Analysis Performed At [facility] Time Signature Creatinine 1.40 (H) 0.73 - [...] - 01/28/2018 3:28 PM CDT Performed at [facility], [address] [place] [address] CLIA number [id number] Sunny Giraldo MD LAB_1 Performing Organization Address City/State/ZIP Code Phon e Number PN SOFT [address] [place] [address] documented in this encounter Visit Diagnoses Diagnosis Essential hypertension (HRC) Unspecified essential hypertension Hyperlipidemia, unspecified hyperlipidem ia type (HRC) documented in this encounter Care Teams Donor Recruitment Manager Relationship Specialty Start Date End Date Sunny Giraldo MD PCP - General Family Practice 02/21/17 08/08/20 [address] [place] [address] documented as of this encounter
--- OUTSIDE RECORDS SUMMARY | 2022-06-28 08:57 | XMS_ITS | Encounter Summary ---
:1960 Author Organization [employer] Address [address] [place] [address] Care Team Providers Name Role Phone Sunny Giraldo MD Primary Care Provider Encounter Details Date Type Department Care Team Description 01/28/2018 Lab Visit [facility] Chronic kidney disease [address] (CKD), stage III (moderate) [place] [address] ([facility]) [phone] Social History Tobacco Use Types Packs/Day Years [...] healthy Education (05/30/2017 ASHIA Crews, 4:29 PM PRODUCTION MAINTENANCE TECHNICIAN) ASHLEY, CHEIKH Note: Formatting of this [...] - 01/28/2018 2:36 PM CDT Performed at [facility], [address] [place] [address] CLIA number [id number] Terrence Hernandez MD LAB_1 Performing Organization Address City/State/ZIP Code Phon e Number PN SOFT [address] [place] [address] Vitamin D (In house) - in 1 [...] - 01/28/2018 3:59 PM CDT Performed at [address] [address] CLIA number [id number] Terrence Hernandez MD LAB_1 Performing Organization Address [facility] Code Phon e Number PN SOFT [address] [place] [address] PTH - Parathyroid Hormone Intact - in 1 month (01/28/2018 11:42 AM CDT) athologist Signature PTH 40 10 - 100 PN SOFT pg/mL Specimen Anatomical Collection Method Collection Time Receive d Time (Source) Location / / Volume Laterality 01/28/2018 11:42 01/28/2018 4:10 AM CDT PM CDT Narrative PN SOFT - 01/28/2018 4:54 PM CDT Performed at [facility], [address] [place] [address] CLIA number [id number] Terrence Hernandez MD LAB_1 Performing Organization Address [facility] Phon e Number PN SOFT [address] [place] [address] Hemoglobin - in 1 month (01/28/2018 11:42 AM CDT) athologist Signature Hemoglobin 14.7 13.4 - 17.5 PN SOFT g/dL Specimen Anatomical Collection Method Collection Time Receive d Time (Source) Location / / Volume Laterality 01/28/2018 11:42 01/28/2018 AM CDT 11:42 AM CDT Narrative PN SOFT - 01/28/2018 11:47 AM CDT Performed at [facility], [address] [place] [address] CLIA number [id number] Terrence Hernandez MD LAB_1 Performing Organization Address [facility] Code Phon e Number PN SOFT [address] [place] [address] (ABNORMAL) Renal Function Panel - in 1 [...] - 01/28/2018 2:41 PM CDT Performed at [facility], [address] [place] [id number] CLIA number [id number] Terrence Hernandez MD LAB_1 Performing Organization Address City/State/ZIP Code Phon e Number PN SOFT [address] [place] [address] [phone] documented in this encounter Visit Diagnoses Diagnosis Chronic kidney disease (CKD), stage III (moderate) (HRC) Chronic kidney disease, Stage III (moder ate) documented in this encounter Care Teams Information Engineer Relationship Specialty Start Date End Date Sunny Giraldo MD PCP - General Family Practice 02/21/17 08/08/20 [address] [place] [address] documented as of this encounter
--- OUTSIDE RECORDS SUMMARY | 2022-06-28 08:57 | XMS_ITS | Encounter Summary ---
:1960 Author Organization [employer] Address [address] [place] [address] Care Team Providers Name Role Phone Pita Giraldo MD Primary Care Provider Reason for Visit Reason Comments Refill chlorthalidone (HYGROTON) 25 MG tablet [Pharmacy Med Name: CHLORTHALIDONE 25 MG TABLET] Encounter Details Date Type Department Care Team Description 09/05/2017 Refill [facility] Pita Giraldo M D Refill (chlorthalidone Medicine [address] (HYGROTON) 25 MG [address] [place] [address] [Pharmacy Med Name: [place], [place] [phone] (Wo rk) CHLORTHALIDONE 25 [place] [id number] TABLET]) [phone] Social History Tobacco Use Types Packs/Day Years Used Date Smoking Tobacco: Never Smokeless Tobacco: Never Alcohol Use Standard Drinks/Week Comments Yes 0 (1 standard drink = 0.6 oz pure Alcoho lic Drinks/day: Amount:1-2 alcohol) drinks; Freq:=< Ucrt hly; Sex Assigned at Date Recorded Not [...] K: 3.7 mEq/L on 04/24/2017 Powered by [employer]-MOTION Interactive, Reference: [id number], 09/05/2017 11:02:32 AM Jose WANG: JO HERNANDEZILL ([id number]) TH COMMUNICATIONS SPECIALIST documented in this encounter Plan of Treatment Not on filedocumented as of this encounter Goals Goal Patient Goal Associated Recent Patient-Stated? Author Type Problems Progress Eating Diabetes On track Kelin Lam healthy Education (05/30/2017 ASHIA Crews, 4:29 PM HEALTH COMMUNICATIONS SPECIALIST) ASHLEY, CHEIKH Note: Formatting of this note might be d ifferent from the original. Count carbohydrates at meals and snacks. documented as of this encounter Visit Diagnoses Diagnosis Chronic kidney disease, stage III (moder ate) (HRC) Chronic kidney disease, Stage III (moder ate) documented in this encounter Care Teams Federal Mediation Commissioner Relationship Specialty Start Date End Date Pita Giraldo MD PCP - General Family Practice 02/21/17 08/08/20 [address] [place] [address] documented as of this encounter
--- OUTSIDE RECORDS SUMMARY | 2022-06-28 08:57 | XMS_ITS | Encounter Summary ---
:1960 Author Organization [employer] Address [address] [place] [address] Care Team Providers Name Role Phone Pita Giraldo MD Primary Care Provider Encounter Details Date Type Department Care Team Description 10/26/2017 Lab Visit [facility] Essential hypertension; [address] Hyperlipidemia, unspecified hyperlipidemia type; [place] [address] Type 2 diabetes mellitus wit hout complication, without long-term current use of insulin ([facility]) [phone] Social History Tobacco Use Types Packs/Day Years [...] Lam Education (05/30/2017 ASHIA Crews, 4:29 PM DIRECTOR REHABILITATION PROGRAM) CHEIKH RAMIREZ Note: Formatting of this note [...] - 01/28/2018 3:28 PM CDT Performed at [facility], [address] [place] [address] CLIA number [id number] Pita Giraldo MD LAB_1 Performing Organization Address City/State/ZIP Code Phon e Number PN SOFT [address] [place] [address] (ABNORMAL) Basic Metabolic Panel (01/28/2018 11:42 AM [...] - 01/28/2018 3:28 PM CDT Performed at [facility], [facility] [address] [place] [address] CLIA number [id number] Pita Giraldo MD LAB_1 Performing Organization Address City/State/ZIP Code Phon e Number PN SOFT [address] [place] [address] [phone] Microalbumin Urine Random (UMAR) (10/26/2017 10:44 AM CDT) P athologist Signature Microalbumin 35.2 mg/L PN SOFT Urine U Creat Random 140 mg/dL PN SOFT Microalbumin/Crea 25.1 0.0 - 30.0 PN SOFT tinine Ratio Specimen Anatomical Collection Method Collection Time Receive d Time (Source) Location / / Volume Laterality Urine specimen 10/26/2017 10:44 8 2:57 (specimen) AM CDT PM CDT Narrative PN SOFT - 10/26/2017 3:55 PM CDT Performed at [facility], [address] [place] [address] CLIA number [id number] Pita Giraldo MD LAB_1 Performing Organization Address City/[facility] Phon e Number PN SOFT [address] [place] [address] Hgb A1c (10/26/2017 10:44 AM CDT) athologist Signature HGB A1C 5.1 4.0 - 5.6 % PN SOFT Specimen Anatomical Collection Method Collection Time Receive d Time (Source) Location / / Volume Laterality 10/26/2017 10:44 10/26/2017 4:29 AM CDT PM CDT Narrative PN SOFT - 10/27/2017 10:52 AM CDT Performed at [facility] [address] [place] [address] CLIA number [id number] Pita Giraldo MD LAB_1 Performing Organization Address [facility] Phon e Number PN SOFT [address] [place] [address] (ABNORMAL) Lipid Panel - LDLD If Trig High (10/26/2017 10:44 AM CDT) [facility] gist Method Time Signature Cholesterol 250 [...] - 10/26/2017 3:34 PM CDT Performed at [facility], [address] [place] [address] CLIA number [id number] Pita Giraldo MD LAB_1 Performing Organization Address [facility] Code Phon e Number PN SOFT [address] [place] [address] [phone] (ABNORMAL) Basic Metabolic Panel (10/26/2017 10:44 AM [...] - 10/26/2017 4:15 PM CDT Performed at [facility], [address] [place] [address] CLIA number [id number] Pita Giraldo MD LAB_1 Performing Organization Address [facility]/ZIP Code Phon e Number PN SOFT [address] [place] [address] documented in this encounter Visit Diagnoses Diagnosis Essential hypertension (HRC) Unspecified essential hypertension Hyperlipidemia, unspecified hyperlipidem ia type (HRC) Type 2 diabetes mellitus without complic ation, without long-term current use of insulin (HRC) Essential hypertension (HRC) Unspecified essential hypertension Hyperlipidemia, unspecified hyperlipidem ia type (HRC) documented in this encounter Care Teams Dictating Machine Mechanic Relationship Specialty Start Date End Date Pita Giraldo MD PCP - General Family Practice 02/21/17 08/08/20 [address] [place] [address] documented as of this encounter
--- OUTSIDE RECORDS SUMMARY | 2022-06-28 08:57 | XMS_ITS | Encounter Summary ---
:1960 Author Organization [employer] Address [address], [place] [address] Care Team Providers Name Role Phone Sunny Giraldo MD Primary Care Provider Reason for Visit Reason Comments Diabetes Encounter Details Date Type Department Care Team Description 10/26/2017 Office Visit [facility] Sunny Giraldo M D Essential hypertension (Primary Dx); Medicine [address] Hyperlipidemia, unspecified hyperlipidem ia type; [address] [place], [place] Chronic kidney disease (CKD) , stage III (moderate) (HRC); [place] [address] Type 2 diabetes mellitus without complic ation, [...] 10:39 AM CDT NAME: JOSH MOSLEY MR#: [id number] CSN: [id number] AUTHENTICATING CLINICIAN: Sunny Giraldo MD CONFIRM #: [id number] LOC: 4402 CLINIC PROGRESS NOTE DATE OF [...] agreed and accepted. YO:MEDQ C: CONFIRM #: [id number] documented in this encounter Plan of Treatment Not on filedocumented as of this encounter Goals Goal Patient Goal Associated Recent Patient-Stated? Author Type Problems Progress Eating Diabetes On track No Genaro, healthy Education (05/30/2017 ASHIA Crews, 4:29 PM POULTRY HUSBANDRY WORKER) ASHLEY, CHEIKH Note: Formatting of this [...] - 10/26/2017 3:55 PM CDT Performed at [facility] [address] [place] [address] CLIA number [id number] Sunny Giraldo MD LAB_1 Performing Organization Address City/State/ZIP Code Phon e Number PN SOFT [address] [place] [address] Hgb A1c (10/26/2017 10:44 AM CDT) athologist Signature HGB A1C 5.1 4.0 - 5.6 % PN SOFT Specimen Anatomical Collection Method Collection Time Receive d Time (Source) Location / / Volume Laterality 10/26/2017 10:44 10/26/2017 4:29 AM CDT PM CDT Narrative PN SOFT - 10/27/2017 10:52 AM CDT Performed at [facility], [address] [place] [address] CLIA number [id number] Sunny Giraldo MD LAB_1 Performing Organization Address [facility] Phon e Number PN SOFT [address] [place] [address] (ABNORMAL) Lipid Panel - LDLD If Trig High (10/26/2017 10:44 AM CDT) [facility] Method Time Signature Cholesterol 250 (H) [...] - 10/26/2017 3:34 PM CDT Performed at [facility] [address] [place] [address] CLIA number [id number] Sunny Giraldo MD LAB_1 Performing Organization Address [facility] Phon e Number PN SOFT [address] [place] [address] (ABNORMAL) Basic Metabolic Panel (10/26/2017 10:44 AM CDT) [facility] Time Signature Creatinine 1.50 (H) 0.73 [...] - 10/26/2017 4:15 PM CDT Performed at [facility] [address] [place] [address] CLIA number [id number] Sunny Giraldo MD LAB_1 Performing Organization Address City/State/ZIP Code Phon e Number PN SOFT [address] [place] [address] [phone] documented in this encounter Visit Diagnoses Diagnosis [...] (HRC) documented in this encounter Care Teams Care Taker Relationship Specialty Start Date End Date Sunny Giraldo MD PCP - General Family Practice 02/21/17 08/08/20 [address] [place] [address] documented as of this encounter
--- OUTSIDE RECORDS SUMMARY | 2022-06-28 08:57 | XMS_ITS | Encounter Summary ---
:1960 Author Organization [employer] Address [address] [place] [address] Care Team Providers Name Role Phone Sunny Giraldo MD Primary Care Provider Encounter Details Date Type Department Care Team Description 06/06/2017 Notes/[facility]ders [facility] [address] Newton Hernandez MD Nephrology 3931 [facility] [address] [facility] [address] [place] [id number] [phone] Social History Tobacco Use Types Packs/Day Years [...] Lam Education (05/30/2017 ASHIA Crews, 4:29 PM RETIREMENT SALES CONSULTANT) ASHLEY, CHEIKH Note: Formatting of this note might be d ifferent from the original. Count carbohydrates at meals and snacks. documented as of this encounter Visit Diagnoses Not on filedocumented in this encounter Care Teams Embossing Machine Tender Relationship Specialty Start Date End Date Sunny Giraldo MD PCP - General Family Practice 02/21/17 08/08/20 [address] [place] [address] documented as of this encounter
--- OUTSIDE RECORDS SUMMARY | 2022-06-28 08:57 | XMS_ITS | Encounter Summary ---
:1960 Author Organization [email or web address] Address [address], [place] [address] Care Team Providers Name Role Phone Pita Giraldo MD Primary Care Provider Reason for Visit Reason Onset Date Comments Refill 09/05/2017 chlorthalidone (HYGR OTON) 25 MG tablet Encounter Details Date Type Department Care Team Description 09/05/2017 Refill [facility] Pita Giraldo M D Refill (chlorthalidone Medicine [address] (HYGROTON) 25 MG tablet) [address] [place] [address] [place], [place] [phone] (Wo rk) [address] [phone] Social History Tobacco Use Types Packs/Day Years [...] Sig: Take 1 Tab by mouth daily. RLY Interface, Out [employer] Prov Query - 09/05/2017 10:33 AM CST [...] K: 3.7 mEq/L on 04/24/2017 Powered by Knocka[employer], Reference: [id number], 09/05/2017 10:33:08 AM ORDERLY, Pool: RIVKAJR REFILL ([id number]) RLY documented in this encounter Plan of Treatment Not on filedocumented as of this encounter Goals Goal Patient Goal Associated Recent Patient-Stated? Author Type Problems Progress Eating Diabetes On track Kelin Lam healthy Education (05/30/2017 ASHIA Crews, 4:29 PM ORDERLY) CHEIKH RAMIREZ Note: Formatting of this note might be d ifferent from the original. Count carbohydrates at meals and snacks. documented as of this encounter Visit Diagnoses Diagnosis Chronic kidney disease, stage III (moder ate) ([facility]) Chronic kidney disease, Stage III (moder ate) documented in this encounter Care Teams Television Production Clerk Relationship Specialty Start Date End Date Pita Giraldo MD PCP - General Family Practice 02/21/17 08/08/20 [address] [place] [address] documented as of this encounter
--- OUTSIDE RECORDS SUMMARY | 2022-06-28 08:57 | XMS_ITS | Encounter Summary ---
:1960 Author Organization [employer] Address [address] [place] [address] Care Team Providers Name Role Phone Sunny Giraldo MD Primary Care Provider Reason for Visit Reason Comments Follow-up Encounter Details Date Type Department Care Team Description 02/17/2018 Office Visit [facility] Terrence Hernandez MD Essential hypertension (Primary Dx); 3931 Nephrology 3931 [facility] Chronic kidney disease (CKD) , stage III (moderate) (HRC); [address] [facility] [address] Type 2 diabetes mellitus without complic ation, without long-term current use of insulin (HRC) [place] [address] [phone] (Wo rk) Social History Tobacco Use Types [...] Past Medical History: Reviewed and updated in [employer]. Pertinent details annotated in the assessment. Patient [...] healthy Education (05/30/2017 ASHIA Crews, 4:29 PM AMMONIA REFRIGERATION TECHNICIAN) ASHLEY, CHEIKH Note: Formatting of this note might be d ifferent from the original. Count carbohydrates at meals and snacks. documented as of this encounter Results Vitamin D (In house) - in 1 year (02/19/2019 12:20 PM CDT) P athologist Signature Vitamin D, 43 30 - 80 02/19/2019 [facility] 25-OH, Total ng/mL 5:27 PM CDT LABORATORY Specimen Anatomical Collection Method Collection Time Receive d Time (Source) Location / / Volume Laterality Blood 02/19/2019 12:20 02/19/2019 PM CDT 12:20 PM CDT Terrence Hernandez MD LAB_1 Performing Organization Address City/State/ZIP Code Phon e Number [facility] [address] [place] [address] PTH - Parathyroid Hormone Intact - in 1 year (02/19/2019 12:20 PM CDT) P athologist Signature Intact PTH 55 10 - 100 02/19/2019 [facility] pg/mL 4:21 PM CDT LABORATORY Specimen Anatomical Collection Method Collection Time Receive d Time (Source) Location / / Volume Laterality Blood 02/19/2019 12:20 02/19/2019 PM CDT 12:20 PM CDT Terrence Hernandez MD LAB_1 Performing Organization Address City/[facility]/ZIP Code Phon e Number [facility] [address] [place] [address] Microalbumin Urine Random - in 1 year (02/19/2019 12:20 PM CDT) P athologist Signature Albumin, 7.9 mg/L 02/19/2019 [facility] Urine, Random 3:50 PM CDT LABORATORY Creatinine, 65 >20 mg/dL 02/19/2019 [facility] Urine, Random 3:50 PM CDT LABORATORY Albumin/Creati 12 <30 mg/g 02/19/2019 [facility] nine Ratio, 3:50 PM CDT LABORATORY Urine, Random Specimen Anatomical Collection Method Collection Time Receive d Time (Source) Location / / Volume Laterality Urine,random 02/19/2019 12:20 02/19/2019 PM CDT 12:20 PM CDT Terrence Hernandez MD LAB_1 Performing Organization Address City/[facility]/ZIP Code Phon e Number [facility] [address] [place] [address] Hemoglobin - in 1 year (02/19/2019 12:20 PM CDT) P athologist Signature Hemoglobin 15.0 13.5 - 17.5 02/19/2019 [facility] g/dL 12:25 PM CDT Specimen Anatomical Collection Method Collection Time Receive d Time (Source) Location / / Volume Laterality Blood 02/19/2019 12:20 02/19/2019 PM CDT 12:20 PM CDT Terrence Hernandez MD LAB_1 Performing Organization Address City/[facility]/ZIP Code Phon e Number [facility] [address] [place] [address] [facility] [address] [place] [address] [address] [phone] (ABNORMAL) Renal Function Panel - in 1 year (02/19/2019 12:20 PM CDT) [facility] Method Time Signature Sodium 141 136 - 145 02/19/2019 [facility] mmol/L 3:12 PM CDT LABORATORY Potassium 4.0 3.5 - 5.1 02/19/2019 [facility] mmol/L 3:12 PM CDT LABORATORY Chloride 102 98 - 109 02/19/2019 [facility] mmol/L 3:12 PM CDT LABORATORY CO2 26 20 - 29 02/19/2019 [facility] mmol/L 3:12 PM CDT LABORATORY Anion Gap 13 7 - 16 02/19/2019 [facility] mmol/L 3:12 PM CDT LABORATORY Calcium 10.1 8.4 - 10.4 02/19/2019 [facility] mg/dL 3:12 PM CDT LABORATORY BUN 21 7 - 26 02/19/2019 [facility] mg/dL 3:12 PM CDT LABORATORY Creatinine 1.40 (H) 0.73 - 02/19/2019 [facility] 1.18 mg/dL 3:12 PM CDT LABORATORY GFR, Estimated 56 (L) >60 02/19/2019 [facility] mL/min/1.7 3:12 PM CDT LABORATORY 3m2 GFR, Est If >60 >60 02/19/2019 [facility] mL/min/1.7 3:12 PM CDT LABORATORY Chadian 3m2 Albumin 4.4 3.5 - 5.0 02/19/2019 [facility] g/dL 3:12 PM CDT LABORATORY Phosphorus 2.8 2.3 - 4.7 02/19/2019 [facility] mg/dL 3:12 PM CDT LABORATORY Glucose 105 (H) 70 - 100 02/19/2019 [facility] mg/dL 3:12 PM CDT LABORATORY Comment: The given reference range is fo r the fasting state. Non-fasting reference range for glucose is 70 - 180 mg/dL. Hours Fasting 3 02/19/2019 3:12 PM CDT [facility] Specimen Anatomical Collection Method Collection Time Receive d Time (Source) Location / / Volume Laterality Blood 02/19/2019 12:20 02/19/2019 PM CDT 12:20 PM CDT Narrative [facility] - 02/19/2019 3:12 PM CDT The [...] Organization Address City/State/ZIP Code Phon e Number [facility] [address] [place] [address] [facility] [address] [place] [address], [phone] [facility] documented in this encounter Visit Diagnoses Diagnosis Essential hypertension (HRC) - Primary Unspecified essential hypertension Chronic kidney disease (CKD), stage III (moderate) (HRC) Chronic kidney disease, Stage III (moder ate) Type 2 diabetes mellitus without complic ation, without long-term current use of insulin (HRC) documented in this encounter Care Teams Transit Survey Worker Relationship Specialty Start Date End Date Sunny Giraldo MD PCP - General Family Practice 02/21/17 08/08/20 [address] [place], [place] [id number] documented as of this encounter
--- OUTSIDE RECORDS SUMMARY | 2022-06-28 08:57 | XMS_ITS | Encounter Summary ---
:1960 Author Organization [employer] Address [address] [place] [address] Care Team Providers Name Role Phone Sunny Giraldo MD Primary Care Provider Encounter Details Date Type Department Care Team Description 04/24/2017 Lab Visit [facility] Type 2 diabetes mellitus wit hout complication, without long-term current use of insulin (HRC); [address] Chronic kidney disease, stag e III (moderate); [place] [address] Liver enzyme elevation; [phone] Essential hyper tension Social History Tobacco Use [...] healthy Education (05/30/2017 ASHIA Crews, 4:29 PM ALARM SIGNAL OPERATOR) ASHLEY, CHEIKH Note: Formatting of this [...] Urine Random (UMAR) (04/24/2017 4:17 PM CDT) Dexcom Method Time Signature Microalbumin 31.1 mg/L PN [facility] Urine U Creat Random 65 mg/dL PN [facility] Microalbumin/Crea 47.8 (H) 0.0 - PN SOFT tinine Ratio 30.0 Specimen Anatomical Collection Method Collection Time Receive d Time (Source) Location / / Volume Laterality Urine specimen 04/24/2017 4:17 PM 017 8:39 (specimen) CDT PM CDT Narrative PN SOFT - 04/24/2017 9:03 PM CDT Performed at [facility], [address] [place] [id number] CLIA number [id number] Sunny Giraldo MD LAB_1 Performing Organization Address City/State/ZIP Code Phon e Number [facility] [address] [place] [address] (ABNORMAL) Liver Panel(Hepatic Function Panel) (04/24/2017 4:08 PM CDT) Dexcom Method Time Signature Alk Phos 52 40 [...] - 04/24/2017 8:57 PM CDT Performed at [facility], [address] [place] [address] CLIA number [id number] Sunny Giraldo MD LAB_1 Performing Organization Address [facility] Phon e Number PN [facility] [address] [place] [address] [phone] (ABNORMAL) Basic Metabolic Panel (04/24/2017 4:08 PM [...] - 04/24/2017 8:57 PM CDT Performed at [facility], [address] [place] [address] CLIA number [id number] Sunny Giraldo MD LAB_1 Performing Organization Address City/[facility]/ZIP Code Phon e Number [facility] [address] [place] [address] (ABNORMAL) Hgb A1c (04/24/2017 4:08 PM CDT) P athologist Signature HGB A1C 6.2 (H) 4.0 - 5.6 % PN SOFT Specimen Anatomical Collection Method Collection Time Receive d Time (Source) Location / / Volume Laterality 04/24/2017 4:08 PM 7 9:26 CDT PM CDT Narrative PN SOFT - 04/25/2017 10:37 AM CDT Performed at [place] [address] [place] [address] CLIA number [id number] Sunny Giraldo MD LAB_1 Performing Organization Address [facility] Phon e Number [facility] [address] [place] [address] documented in this encounter Visit Diagnoses Diagnosis Type 2 diabetes mellitus without complic ation, without long-term current use of insulin (HRC) Chronic kidney disease, stage III (moder ate) (HRC) Chronic kidney disease, Stage III (moder ate) Liver enzyme elevation Nonspecific elevation of levels of trans aminase or lactic acid dehydrogenase (LDH) Essential hypertension (HRC) Unspecified essential hypertension documented in this encounter Care Teams Cook Italian Style Food Relationship Specialty Start Date End Date Sunny Giraldo MD PCP - General Family Practice 02/21/17 08/08/20 [address] [place] [address] documented as of this encounter
--- OUTSIDE RECORDS SUMMARY | 2022-06-28 08:57 | XMS_ITS | Encounter Summary ---
:1960 Author Organization [employer] Address [address], [place] [address] Care Team Providers Name Role Phone Sunny Giraldo MD Primary Care Provider Reason for Visit Reason Comments Type 2 Diabetes Controlled Patient Education Encounter Details Date Type Department Care Team Description 05/30/2017 Office Visit [facility] type 2 Diabet diabetes mellitus [address] [facility] without complication, [place] [address] without long-term [phone] current use of insulin (HRC) (Primary Dx) [...] Comments Blood Pressure 121/84 05/30/2017 4:33 PM VOLCANOLOGY PROFESSOR Pulse 59 05/30/2017 4:33 PM VOLCANOLOGY PROFESSOR Temperature - - Respiratory Rate - - Oxygen Saturation - - Inhaled Oxygen Concentration - - Weight 82.4 kg (181 lb 11.2 oz) 05/30/2017 4:33 PM VOLCANOLOGY PROFESSOR Height - - Body Mass Index 24.64 03/15/2017 1:05 PM CDT documented in this encounter Progress Notes Eleonora Lam, ASHIA, LD, CDCES - 05/30/2017 3:15 PM CST DIAGNOSIS: [...] 55 minutes Written Diabetes Education Materials Given ANOLOGY PROFESSOR documented in this encounter Plan of Treatment Not on filedocumented as of this encounter Goals Goal Patient Goal Associated Recent Patient-Stated? Author Type Problems Progress Eating Diabetes On track No Genaro healthy Education (05/30/2017 ASHIA Crews, 4:29 PM VOLCANOLOGY PROFESSOR) CHEIKH RAMIREZ Note: Formatting of this note might be d ifferent from the original. Count carbohydrates at meals and snacks. documented as of this encounter Visit Diagnoses Diagnosis Controlled type 2 diabetes mellitus with out complication, without long-term current use of insulin (HRC) - Primary documented in this encounter Care Teams [employer] Consultant Relationship Specialty Start Date End Date Sunny Giraldo MD PCP - General Family Practice 02/21/17 08/08/20 [address] [place] [address] documented as of this encounter
--- OUTSIDE RECORDS SUMMARY | 2022-06-28 08:58 | XMS_ITS | Encounter Summary ---
:1960 Author Organization [employer] Address [address] [place] [address] Care Team Providers Name Role Phone Pita Giraldo MD Primary Care Provider Reason for Visit Reason Comments Refill metFORMIN (GLUCOPHAGE) 500 M G tablet [Pharmacy Med Name: METFORMIN HCL 500 MG TABLET] Encounter Details Date Type Department Care Team Description 03/20/2017 Refill [facility] Pita Giraldo M D Refill (metFORMIN Medicine [address] (GLUCOPHAGE) 500 MG [address] [place] [address] tablet [Pharmacy Med [place], [place] [phone] (Wo rk) Name: METFORMIN HCL 500 [id number] MG TABLET]) [phone] Social History Tobacco Use Types Packs/Day Years Used Date Smoking Tobacco: Never Smokeless Tobacco: Never Alcohol Use Standard Drinks/Week Comments Yes 0 (1 standard drink = 0.6 oz pure Alcoho lic Drinks/day: Amount:1-2 alcohol) drinks; Freq:=< Curt hly; Sex Assigned at Date Recorded Not on file documented as of this encounter Nursing Notes Kianna Page LPN - 03/26/2017 12:03 PM CDT Bryce [...] : 9.3 % on 02/19/2017 Powered by Eat, Reference: [id number], 03/20/2017 10:42:18 AM CDT, Pool: JO REFILL ([id number]) documented in this encounter Plan of Treatment Not on filedocumented as of this encounter Visit Diagnoses Not on filedocumented in this encounter Care Teams Forest Ecology Professor Relationship Specialty Start Date End Date Pita Giraldo MD PCP - General Family Practice 02/21/17 08/08/20 [address] [place] [address] documented as of this encounter
--- OUTSIDE RECORDS SUMMARY | 2022-06-28 08:58 | XMS_ITS | Encounter Summary ---
:1960 Author Organization [employer] Address [address], [place] [address] Care Team Providers Name Role Phone Jun Benz MD Primary Care Provider Reason for Visit Reason Comments Refill Encounter Details Date Type Department Care Team Description 02/05/2016 Refill [facility] 3931 Newton Hernandez MD Refill Nephrology 3931 [facility] [address] [place] [address] [place], [place] [address] [phone] Social History Tobacco Use Types Packs/Day Years [...] on filedocumented in this encounter Care Teams Furniture Refinisher Relationship Specialty Start Date End Date Jun Benz MD PCP - General 10/12/15 02/20/17 [address] [place] [address] (work) documented as of this encounter
--- OUTSIDE RECORDS SUMMARY | 2022-06-28 08:58 | XMS_ITS | Encounter Summary ---
:1960 Author Organization [employer] Address [address] [place] [address] Care Team Providers Name Role Phone Jun Benz MD Primary Care Provider Reason for Visit Reason Comments Refill Encounter Details Date Type Department Care Team Description 01/05/2016 Refill [facility] 3931 Netwon Hernandez MD Refill Nephrology 3931 [facility] [address] [place] [address] [place] [address] [phone] Social History Tobacco Use Types Packs/Day Years Used Date Smoking Tobacco: Never Assessed Sex Assigned at Date Recorded Not on file documented as of this encounter Nursing Notes Melissa Larson RN - 01/05/2016 9:22 AM CDT Medication refilled per refill protocol. documented in this encounter Plan of Treatment Not on filedocumented as of this encounter Visit Diagnoses Not on filedocumented in this encounter Care Teams Religion Professor Relationship Specialty Start Date End Date Jun Benz MD PCP - General 10/12/15 02/20/17 [address] [place] [address] documented as of this encounter
--- OUTSIDE RECORDS SUMMARY | 2022-06-28 08:58 | XMS_ITS | Encounter Summary ---
:1960 Author Organization [employer] Address [address] [address] Care Team Providers Name Role Phone Jun Benz MD Primary Care Provider Reason for Visit Reason Comments Refill Encounter Details Date Type Department Care Team Description 01/01/2017 Refill [facility] 3931 Newton Hernandez MD Refill Nephrology 39[address] [facility] [address] [place] [address] [place], [place] [address] [phone] Social History Tobacco Use Types Packs/Day Years [...] Chronic kidney disease, stage III (moder ate) ([facility]) Chronic kidney disease, Stage III (moder ate) documented in this encounter Care Teams Gravel Hauler Relationship Specialty Start Date End Date Demar, Jun T, MD PCP - General 10/12/15 02/20/17 [address] [place] [address] documented as of this encounter
--- OUTSIDE RECORDS SUMMARY | 2022-06-28 08:58 | XMS_ITS | Encounter Summary ---
:1960 Author Organization [employer] Address [address] [place] [address] Care Team Providers Name Role Phone Jun Benz MD Primary Care Provider Encounter Details Date Type Department Care Team Description 02/14/2017 Lab Visit Specialty Center 3931 Chroni c kidney disease Outpatient Laborator y (CKD), stage III (moderate) [address] [facility] ([facility] [place], [place] [address] Social History Tobacco Use Types Packs/Day Years [...] are in stage III the results (moderate) ([facility]) section. ALDOSTERONE SERUM Routine 02/14/2017 9:43 AM Chronic kidney Re sults for this CDT disease (CKD), procedure are in stage III the results (moderate) ([facility]) section. VITAMIN D 25-HYDROXY, Routine 02/14/2017 9:43 AM Chronic kidne y Results for this TOTAL CDT disease (CKD), procedure are in stage III the results (moderate) ([facility]) section. RENAL FUNCTION PANEL Routine 02/14/2017 9:43 [...] - 02/14/2017 10:44 AM CDT Performed at [facility], [address] [place] [address] CLIA number [id number] .Critical GLUC result of 465 called to and read back by RANDALL MEDINA RN,.02/14/2017,10:40, by [facility] Terrence Hernandez MD LAB_1 Performing Organization Address City/State/ZIP Code Phon e Number PN SOFT [address] [place] [address] Magnesium - today (02/14/2017 9:43 AM CDT) athologist Signature Magnesium 2.4 1.6 - 2.6 PN [facility] mg/dL Specimen Anatomical Collection Method Collection Time Receive d Time (Source) Location / / Volume Laterality 02/14/2017 9:43 AM 7 9:56 CDT AM CDT Narrative PN SOFT - 02/14/2017 10:37 AM CDT Performed at [facility], [address] [place] [address] [facility] number [id number] Terrence Hernandez MD LAB_1 Performing Organization Address City/State/ZIP Code Phon e Number SOFT [address] [place] [address] Renin Activity (02/14/2017 9:43 AM CDT) P athologist Signature Renin Activity 2.0 ng/mL/hr PN SOFT Comment: INTERPRETIVE INFORMATION: Renin Activity Adult, Normal sodium diet: ??Supine ................. 0.2-1.6 ng/m L/hr ??Upright ................ 0.5-4.0 ng/m L/hr Children, Normal sodium diet, Supine: ?? (1-7 days) ..... 2.0-35.0 ng/ mL/hr ??Cord [...] angiotensinogen is decreased. See Compliance Statement D: [email or web address] Performed by [facility], [address] [place] [address] [email or web address], Mario Smith MD - Lab . Director Specimen Anatomical Collection Method Collection Time Receive d Time (Source) Location / / Volume Laterality 02/14/2017 9:43 AM 7 9:56 CDT AM CDT Narrative PN SOFT - 02/19/2017 9:10 PM CDT Performed at [facility] [address] [place] [address] CLIA number [id number] .Critical GLUC result of 465 called to and read back by RANDALL MEDINA RN,.02/14/2017,10:40, by [facility] Terrence Hernandez MD LAB_1 Performing Organization Address City/State/ZIP Code Phon e Number PN SOFT [address] [place] [address] Aldosterone Serum (02/14/2017 9:43 AM CDT) athologist [...] reference intervals for this test in the [facility] Directory ([employer]rulySocial). Performed by [facility], [address] [place] [address] [email or web address], Mario Smith MD - Lab . Director Specimen Anatomical Collection Method Collection Time Receive d Time (Source) Location / / Volume Laterality 02/14/2017 9:43 AM 7 9:56 CDT AM CDT Narrative PN SOFT - 02/15/2017 11:33 PM CDT Performed at [facility] [address] [place] [address] CLIA number [id number] .Critical GLUC result of 465 called to and read back by RANDALL MEDINA RN,.02/14/2017,10:40, by [facility] Terrence Hernandez MD LAB_1 Performing Organization Address [facility] Phon e Number PN SOFT [address] [place] [address] Vitamin D (In house) - today (02/14/2017 [...] - 02/14/2017 4:57 PM CDT Performed at [place] [address] [place] [address] CLIA number [id number] .Critical GLUC result of 465 called to and read back by RANDALL MEDINA RN,.02/14/2017,10:40, by [facility] Terrence Hernandez MD LAB_1 Performing Organization Address [facility] Phon e Number PN SOFT [address] [place] [address] PTH - Parathyroid Hormone Intact - today (02/14/2017 9:43 AM CDT) P athologist Signature PTH 41 10 - 100 PN SOFT pg/mL Specimen Anatomical Collection Method Collection Time Receive d Time (Source) Location / / Volume Laterality 02/14/2017 9:43 AM 7 9:56 CDT AM CDT Narrative PN SOFT - 02/14/2017 11:03 AM CDT Performed at [facility], [address] [place] [address] CLIA number [id number] .Critical GLUC result of 465 called to and read back by RANDALL MEDINA RN,.02/14/2017,10:40, by [facility] Terrence Hernandez MD LAB_1 Performing Organization Address City/State/ZIP Code Phon e Number PN SOFT [address] [place] [address] (ABNORMAL) Renal Function Panel - today (02/14/2017 [...] - 02/14/2017 10:37 AM CDT Performed at [address] [address] CLIA number [id number] .Critical GLUC result of 465 called to and read back by RANDALL MEDINA RN,.02/14/2017,10:40, by [facility] Terrence Hernandez MD LAB_1 Performing Organization Address [facility] Phon e Number PN SOFT [address] [place] [address] (ABNORMAL) Microalbumin Urine Random - today (02/14/2017 9:37 AM CDT) [facility] Method Time Signature Microalbumin 108.8 mg/L PN SOFT Urine U Creat Random 83 mg/dL PN SOFT Microalbumin/Crea 131.1 (H) 0.0 - PN SOFT tinine Ratio 30.0 Specimen Anatomical Collection Method Collection Time Receive d Time (Source) Location / / Volume Laterality Urine specimen 02/14/2017 9:37 AM 017 9:55 (specimen) CDT AM CDT Narrative PN SOFT - 02/14/2017 10:51 AM CDT Performed at [address] [address] CLIA number [id number] .Critical GLUC result of 465 called to and read back by RANDALL MEDINA RN,.02/14/2017,10:40, by [facility] Terrence Hernandez MD LAB_1 Performing Organization Address [facility] Phon e Number PN SOFT [address] [place] [address] [phone] documented in this encounter Visit Diagnoses Diagnosis Chronic kidney disease (CKD), stage III (moderate) (HRC) Chronic kidney disease, Stage III (moder ate) documented in this encounter Care Teams Ferry Boat Captain Relationship Specialty Start Date End Date Jun Benz MD PCP - General 10/12/15 02/20/17 [address] [place] [address] documented as of this encounter
--- OUTSIDE RECORDS SUMMARY | 2022-06-28 08:58 | XMS_ITS | Encounter Summary ---
:1960 Author Organization [employer] Address [address] [place] [address] Care Team Providers Name Role Phone Sunny Giraldo MD Primary Care Provider Encounter Details Date Type Department Care Team Description 04/24/2017 Immunization [facility] Need for prophylactic [address] [place] [address] inoculation against [phone] influenza Social History Tobacco Use Types Packs/Day [...] healthy Education (05/30/2017 ASHIA Crews, 4:29 PM CLEARING HAND) LD, CDCES Note: Formatting of this note might be d ifferent from the original. Count carbohydrates at meals and snacks. documented as of this encounter Visit Diagnoses Diagnosis Need for prophylactic vaccination and in oculation against influenza documented in this encounter Care Teams Pipe Smoker Machine Operator Relationship Specialty Start Date End Date Sunny Giraldo MD PCP - General Family Practice 02/21/17 08/08/20 [address] [place] [address] documented as of this encounter
--- OUTSIDE RECORDS SUMMARY | 2022-06-28 08:58 | XMS_ITS | Encounter Summary ---
:1960 Author Organization [employer] Address [address] [place] [address] Care Team Providers Name Role Phone Jun Benz MD Primary Care Provider Reason for Visit Reason Onset Date Comments Critical Lab Result 02/14/2017 Encounter Details Date Type Department Care Team Description 02/14/2017 Telephone Specialty Center 3931 Newton Hernandez MD Critical Lab Result Nephrology 3931 [facility] 3931 [facility] [address] [place] [phone] (Wo rk) Social History Tobacco Use Types Packs/Day Years Used Date Smoking Tobacco: Never Alcohol Use Standard Drinks/Week Comments No 0 (1 standard drink = 0.6 oz pure Alcoho lic Drinks/day: Amount:1-2 alcohol) drinks; Freq:=< Curt hly; Sex Assigned at Date Recorded Not on file documented as of this encounter Nursing Notes Iliana Horn LPN - 02/15/2017 10:14 AM CDT Please see [employer] msg. for further documentation. Iliana Horn LPN - 02/15/2017 9:47 AM CDT Unable to contact pt. at [phone]. Line disconnects after 2 rings. Mychart msg. was sent to pt. Terrence Hernandez MD - 02/15/2017 9:28 AM CDT He needs to get in to see his primary AKIL or one of the primary's partners. He has diabetes. Cele Philip, RN - 02/14/2017 10:50 AM CDT Lab calling to report critical lab result of Glucose 465, pt. is not listed as diabetic, was seen this AM for clinic visit. Please advise. documented in this encounter Plan of Treatment Not on filedocumented as of this encounter Visit Diagnoses Not on filedocumented in this encounter Care Teams Senior Ios Software Engineer Relationship Specialty Start Date End Date Jun Benz MD PCP - General 10/12/15 02/20/17 [address] [place] [address] documented as of this encounter
--- OUTSIDE RECORDS SUMMARY | 2022-06-28 08:58 | XMS_ITS | Encounter Summary ---
:1960 Author Organization [employer] Address [address] [place] [address] Care Team Providers Name Role Phone Pita Giraldo MD Primary Care Provider Encounter Details Date Type Department Care Team Description 03/15/2017 Lab Visit [facility] Chronic kidney disease, stag e III (moderate) (HRC) (Primary Dx); [address] [place] [address] Social History Tobacco Use Types Packs/Day Years Used Date Smoking Tobacco: Never Smokeless Tobacco: Never Alcohol Use Standard Drinks/Week Comments Yes 0 (1 standard drink = 0.6 oz pure Alcoho lic Drinks/day: Amount:1-2 alcohol) drinks; Freq:=< Curt hly; Sex Assigned at Date Recorded Not on file documented as of this encounter Progress Notes Pita Giraldo MD - 03/18/2017 7:51 AM CDT [...] - 04/01/2017 8:58 PM CDT Performed at [facility], [address] [place] [address] CLIA number [id number] Pita Giraldo MD LAB_1 Performing Organization Address City/[facility] Code Phon e Number PN SOFT [address] [place] [address] Potassium (04/01/2017 4:59 PM CDT) P athologist Signature Potassium 3.5 3.5 - 5.2 PN SOFT mmol/L Specimen Anatomical Collection Method Collection Time Receive d Time (Source) Location / / Volume Laterality 04/01/2017 4:59 PM 7 8:40 CDT PM CDT Narrative PN SOFT - 04/01/2017 8:58 PM CDT Performed at [facility], [facility] [address] [place] [id number] CLIA number [id number] Pita Giraldo MD LAB_1 Performing Organization Address City/[facility]/ZIP Code Phon e Number PN SOFT [address] [place] [address] (ABNORMAL) Potassium (03/15/2017 1:46 PM CDT) P athologist Signature Potassium 3.4 (L) 3.5 - 5.2 PN SOFT mmol/L Specimen Anatomical Collection Method Collection Time Receive d Time (Source) Location / / Volume Laterality 03/15/2017 1:46 PM 7 2:37 CDT PM CDT Narrative PN SOFT - 03/15/2017 3:42 PM CDT Performed at [facility], [facility] [address] [place] [address] CLIA number [id number] Pita Giraldo MD LAB_1 Performing Organization Address City/[facility] Code Phon e Number PN SOFT [address] [place] [address] (ABNORMAL) Creatinine (03/15/2017 1:46 PM CDT) Analysis [...] - 03/15/2017 3:42 PM CDT Performed at [facility], [facility] [address] [place] [address] CLIA number [id number] Pita Giraldo MD LAB_1 Performing Organization Address [facility] Phon e Number PN SOFT [address] [place] [address] [phone] documented in this encounter Visit Diagnoses Diagnosis Chronic kidney disease, stage III (moder ate) (HRC) - Primary Chronic kidney disease, Stage III (moder ate) Essential hypertension (HRC) Unspecified essential hypertension Chronic kidney disease, stage III (moder ate) (HRC) Chronic kidney disease, Stage III (moder ate) Essential hypertension (HRC) Unspecified essential hypertension documented in this encounter Care Teams Health Plan Manager Relationship Specialty Start Date End Date Pita Giraldo MD PCP - General Family Practice 02/21/17 08/08/20 [address] [place] [address] documented as of this encounter
--- OUTSIDE RECORDS SUMMARY | 2022-06-28 08:58 | XMS_ITS | Encounter Summary ---
:1960 Author Organization [employer] Address [address] [place] [address] Care Team Providers Name Role Phone Jun Benz MD Primary Care Provider Reason for Visit Reason Comments Refill Encounter Details Date Type Department Care Team Description 01/10/2016 Refill Specialty Center 3931 Newton Hernandez MD Refill Nephrology 3931 [facility] [address] [place] [address] [place] [address] [phone] Social History Tobacco Use Types Packs/Day Years [...] filedocumented in this encounter Care Teams Rn Transport Relationship Specialty Start Date End Date Jun Benz MD PCP - General 10/12/15 02/20/17 [address] [place] [address] documented as of this encounter
--- OUTSIDE RECORDS SUMMARY | 2022-06-28 08:58 | XMS_ITS | Encounter Summary ---
:1960 Author Organization [employer] Address [address], [place] [address] Care Team Providers Name Role Phone Sunny Giraldo MD Primary Care Provider Reason for Visit Reason Comments Refill Encounter Details Date Type Department Care Team Description 03/28/2017 Refill Specialty Center 3931 Newton Hernandez MD Refill Nephrology 3931 [facility] [address] [place] [address] [place], [place] [address] [phone] Social History Tobacco Use Types Packs/Day Years [...] Lam Education (05/30/2017 ASHIA Crews, 4:29 PM MEAL PACKER) ASHLEY, CHEIKH Note: Formatting of this note might be d ifferent from the original. Count carbohydrates at meals and snacks. documented as of this encounter Visit Diagnoses Diagnosis Chronic kidney disease, stage III (moder ate) ([facility]) Chronic kidney disease, Stage III (moder ate) documented in this encounter Care Teams Retail Sales Representative Relationship Specialty Start Date End Date Sunny Giraldo MD PCP - General Family Practice 02/21/17 08/08/20 [address] [place] [address] documented as of this encounter
--- OUTSIDE RECORDS SUMMARY | 2022-06-28 08:58 | XMS_ITS | Encounter Summary ---
:1960 Author Organization [employer] Address [address] [place] [address] Care Team Providers Name Role Phone Sunny Giraldo MD Primary Care Provider Encounter Details Date Type Department Care Team Description 02/22/2017 Lab Visit [facility] Type 2 diabetes mellitus [address] without complication, [place] [address] without long-term current [phone] use of insulin (HRC) Social History Tobacco [...] - 02/22/2017 12:05 PM CDT Performed at [facility], [address] [place] [address] CLIA number [id number] Sunny Giraldo MD LAB_1 Performing Organization Address City/State/ZIP Code Phon e Number PN SOFT [address] [place] [address] [phone] documented in this encounter Visit Diagnoses Diagnosis Type 2 diabetes mellitus without complic ation, without long-term current use of insulin (HRC) documented in this encounter Care Teams Linen Tech Relationship Specialty Start Date End Date Sunny Giraldo MD PCP - General Family Practice 02/21/17 08/08/20 [address] [place] [address] documented as of this encounter
--- OUTSIDE RECORDS SUMMARY | 2022-06-28 08:58 | XMS_ITS | Encounter Summary ---
:1960 Author Organization [employer] Address [address] [place] [address] Care Team Providers Name Role Phone Sunny Giraldo MD Primary Care Provider Reason for Visit Reason Comments Type 2 Diabetes Uncontrolled Patient Education Consult/Transfer Care (Routine) - Closed Specialty Diagnoses / Procedures Referred By Contact Refer red To Contact Diagnoses Type 2 diabetes mellitus without complication, without long-term current use of insulin (HRC) [place] [address] [place] [address] Referral ID Status Reason Start Date Expiration Date Visits Requ ested Visits Authorized [id number] Closed 02/22/2017 05/24/2018 1 1 Encounter Details Date Type Department Care Team Description 02/26/2017 Office Visit [facility] Unc ontrolled type 2 Diabet diabetes mellitus with [address] hyperglycemia, [place] [address] long-term current use of [phone] insulin (HRC) ( Primary Dx) Social History [...] Mosley 1960 02/26/2017 A Note From Your [facility] Coroner'S Juror Check your blood sugar three times daily: [...] to your follow up visit. Please call [facility] if you have any questions or concerns at [phone]. documented in this encounter Progress Notes Melissa Villeda RN, CDE - 02/26/2017 1:00 PM CDT DIAGNOSIS: Type 2 Diabetes VISIT TYPE: Initial REFERRED BY: Sunny Giraldo MD SUBJECTIVE/OBJECTIVE: Met with Bryce and his , Veronica. Newly diagnosed with Type 2 diabetes in with A1C 9.3%(02/19/2017). Sees a director of family service center regularly for kidney disease, and found to [...] Primary documented in this encounter Care Teams Miter Operator Relationship Specialty Start Date End Date Sunny Giraldo MD PCP - General Family Practice 02/21/17 08/08/20 [address] [place] [address] documented as of this encounter
--- OUTSIDE RECORDS SUMMARY | 2022-06-28 08:58 | XMS_ITS | Encounter Summary ---
:1960 Author Organization [employer] Address [address] [place] [address] Care Team Providers Name Role Phone Jun Benz MD Primary Care Provider Encounter Details Date Type Department Care Team Description 01/19/2016 Lab Visit Specialty Center 3931 Chroni c kidney disease, stage III (moderate) ([facility]); Outpatient Laborator y Abnormal AST and ALT; 3931 [facility] Postviral [place] [address] Social History Tobacco Use Types Packs/Day Years [...] disease, stage III procedure are in (moderate) ([facility]) the results section. HEPATITIS B MICHELLE, Routine [...] - 01/19/2016 7:06 PM CDT Performed [place] [address] CLIA number [id number] Terrence Hernandez MD LAB_1 Performing Organization Address [facility] Phon e Number HP CONVERSION HEPATITIS B MICHELLE, QUANTITATIVE (01/19/2016 3:08 PM CDT) [facility] Method Time Signature Hep B Surf Ab Nonreactive Non-React HP CONVERSION jessica Hep B Ab <3 mIU/mL HP CONVERSION Quant Specimen Anatomical Collection Method Collection Time Receive d Time (Source) Location / / Volume Laterality 01/19/2016 3:08 PM 6 3:23 CDT PM CDT Narrative HP CONVERSION - 01/19/2016 4:22 PM CDT Performed at [place] [address] [place] [address] CLIA number [id number] Terrence Hernandez MD LAB_1 Performing Organization Address [facility] Phon e Number HP CONVERSION (ABNORMAL) TSH AND FREE T4 (FRT4 IF TSH ABNORM) (01/19/2016 3:08 PM CDT) [facility] Method Time Signature Thyroid 5.10 (H) 0.20 - HP CONVERSION Stimulating 4.50 Hormone uIU/mL Specimen Anatomical Collection Method Collection Time Receive d Time (Source) Location / / Volume Laterality 01/19/2016 3:08 PM 6 3:23 CDT PM CDT Narrative HP CONVERSION - 01/19/2016 4:22 PM CDT Performed at [address] [address] CLIA number [id number] Terrence Hernandez MD LAB_1 Performing Organization Address [facility] Phon e Number HP CONVERSION Hepatitis A Antibody, Total (01/19/2016 3:08 PM CDT) [facility] Method Time Signature Hepatitis A Nonreactive Non-React HP CONVERSION Virus, IgG jessica (Immunity) Specimen Anatomical Collection Method Collection Time Receive d Time (Source) Location / / Volume Laterality 01/19/2016 3:08 PM 6 3:23 CDT PM CDT Narrative HP CONVERSION - 01/19/2016 4:22 PM CDT Performed at [place] [id number] CLIA number [id number] Terrence Hernandez MD LAB_1 Performing Organization Address [facility] Phon e Number HP CONVERSION Hep B Surface Antigen, No Reflex (01/19/2016 3:08 PM CDT) [facility] Method Time Signature Hep B Surf Ag Nonreactive Negative HP CONVERSION Specimen Anatomical Collection Method Collection Time Receive d Time (Source) Location / / Volume Laterality 01/19/2016 3:08 PM 6 3:23 CDT PM CDT Narrative HP CONVERSION - 01/19/2016 4:22 PM CDT Performed at [address] [address] CLIA number [id number] Terrence Hernandez MD LAB_1 Performing Organization Address [facility] Phon e Number HP CONVERSION Hepatitis C Antibody, with Reflex (01/19/2016 3:08 PM CDT) [facility] Method Time Signature Hepatitis C Nonreactive Non-React HP CONVERSION Antibody jessica Specimen Anatomical Collection Method Collection Time Receive d Time (Source) Location / / Volume Laterality 01/19/2016 3:08 PM 6 3:23 CDT PM CDT Narrative HP CONVERSION - 01/19/2016 4:22 PM CDT Performed [place] [address] CLIA number [id number] Terrence Hernandez MD LAB_1 Performing Organization Address [facility] Phon e Number HP CONVERSION (ABNORMAL) Microalb/Creat Ratio (01/19/2016 3:08 PM CDT) [facility] Method Time Signature Microalbumin 141.0 mg/L HP CONVERSION Urine U Creat Random 248 mg/dL HP CONVERSION Microalbumin/Cre 56.9 (H) 0.0 - HP CONVERSION atinine Ratio 30.0 Specimen Anatomical Collection Method Collection Time Receive d Time (Source) Location / / Volume Laterality 01/19/2016 3:08 PM 6 3:21 CDT PM CDT Narrative HP CONVERSION - 01/19/2016 4:01 PM CDT Performed at [address] [address] CLIA number [id number] Terrence Hernandez MD LAB_1 Performing Organization Address [facility] Phon e Number HP CONVERSION (ABNORMAL) RENAL FUNCTION PANEL (01/19/2016 3:08 PM CDT) [facility] Method Time Signature Glucose Non 141 70 [...] - 01/19/2016 4:00 PM CDT Performed at [facility], [facility] [place] [id number] CLIA number [id number] Terrence Hernandez MD LAB_1 Performing Organization Address [...] syndrome documented in this encounter Care Teams Feature Writer Relationship Specialty Start Date End Date Jun Benz MD PCP - General 10/12/15 02/20/17 [address] [place] [address] documented as of this encounter
--- OUTSIDE RECORDS SUMMARY | 2022-06-28 08:58 | XMS_ITS | Encounter Summary ---
:1960 Author Organization [employer] Address [address], [place] [address] Care Team Providers Name Role Phone Jun Benz MD Primary Care Provider Reason for Visit Reason Comments Refill Encounter Details Date Type Department Care Team Description 01/09/2017 Refill Specialty Center 3931 Newton Hernandez MD Refill Nephrology 3931 [facility] [address] [place] [address] [place], [place] [address] [phone] Social History Tobacco Use Types Packs/Day Years [...] disease, stage III (moder ate) ([facility]) Chronic kidney disease, Stage III (moder ate) documented in this encounter Care Teams Tree Chipper Relationship Specialty Start Date End Date Jun Benz MD PCP - General 10/12/15 02/20/17 [address] [place] [address] documented as of this encounter
--- OUTSIDE RECORDS SUMMARY | 2022-06-28 08:58 | XMS_ITS | Encounter Summary ---
:1960 Author Organization [employer] Address [address] [place] [address] Care Team Providers Name Role Phone Clarissa Grimes MD Primary Care Provider Reason for Visit Reason Comments Follow-up Encounter Details Date Type Department Care Team Description 01/19/2016 Office Visit Specialty Center Terrence Hernandez MD Chronic kidney disease, stage III (moder ate) (HRC) (Primary Dx); 3931 Nephrology 3931 [facility] Abnormal AST and ALT; [facility] [address] Postviral fatigue syndrome; [facility]; [address] Need for hepatitis A and B vaccination [phone] (Wo rk) Social History Tobacco Use Types [...] 1430 Note Time: 01/26/16 1028 Status: Signed Geomagnetist: Terrence Hernandez MD (Physician) NAME: JOSH MOSLEY MR#: [id number] CSN: [id number] AUTHENTICATING CLINICIAN: Terrence Hernandez MD CONFIRM #: [id number] LOC: 236 CLINIC PROGRESS NOTE DATE OF [...] The patient after that visit went to [place]. After he came back from [place], he says he has felt great and has felt great ever since. The patient denies any fevers or chills associated with that, but he did have this prolonged period of feeling poorly. Again, this has been resolved since early October, hasnot returned. Hepatitis serologies were not checked. He does still working in [employer]. Really working in [...] well. In addition, he does travel to [place] at least yearlyso hepatitis A vaccination makes [...] counseling, and reassurance. CC: [place] [address] [place] [address] AET:MEDQ C: CONFIRM #: [id number] documented in this encounter Plan of Treatment [...] hepatitis documented in this encounter Care Teams Direct Care Supervisor Relationship Specialty Start Date End Date Clarissa Grimes MD PCP - General 10/12/15 02/20/17 [address] [place] [address] documented as of this encounter
--- OUTSIDE RECORDS SUMMARY | 2022-06-28 08:58 | XMS_ITS | Encounter Summary ---
:1960 Author Organization [employer] Address [address] [place] [address] Care Team Providers Name Role Phone Sunny Giraldo MD Primary Care Provider Reason for Referral Consult/Transfer Care (Routine) - Closed Specialty Diagnoses / Procedures Referred By Contact Refer red To Contact Diagnoses Type 2 diabetes mellitus without complication, without long-term current use of insulin (HRC) [place] [address] [place] [address] Referral ID Status Reason Start Date Expiration Date Visits Requ ested Visits Authorized [id number] Closed 02/22/2017 05/24/2018 1 1 Scheduling Instructions Your provider has recommended an appoint ment with [facility]. You may call [phone] to schedule [facility] appointment. If you do not schedule an appointment within the next 1 to 3 busin ess days, we will call you to help arrange your appointment. We suggest you call [facility] health insurance company about your coverage and benefits for this appointme nt. Reason for Visit Reason Comments Follow-up diabetic labs Encounter Details Date Type Department Care Team Description 02/22/2017 Office Visit [facility] Sunny Giraldo M D Chronic kidney disease (CKD), stage III (moderate) (HRC) (Primary Dx); [facility] [address] Type 2 diabetes mellitus without complic ation, without long-term current use of insulin ([facility]) [address] [place] [phone] Social History Tobacco Use Types Packs/Day [...] 12:56 PM CDT NAME: JOSH MOSLEY MR#: [id number] CSN: [id number] AUTHENTICATING CLINICIAN: Sunny Giraldo MD CONFIRM #: [id number] LOC: 4402 CLINIC PROGRESS NOTE DATE OF [...] pretty within normal limit. He sees a remote broadcast engineer and the remote broadcast engineer because his blood sugar was high he [...] normal limits that had been ordered by remote broadcast engineer that was done 02/14/2017. His parathyroid hormone [...] understand that. They will goto the educational clinical nurse educator and I will see the patient again in 2 weeks if no problem. If any concerns, questions, he will be back to the clinic any time. YO:MEDQ C: CONFIRM #: [id number] documented in this encounter Plan of Treatment Scheduled Referrals Name Type Priority Associated Diagnoses Order S [facility] Diabetes Education Referral Routine Type 2 diabetes [facility] Ordered: 02/22/2017 Visit without complication, without long-term current use of insulin (HRC) documented as of this encounter Results (ABNORMAL) Lipid Panel - LDLD If Trig High (02/23/2017 9:28 AM CDT) [facility] Method Time Signature Cholesterol 197 0 - [...] - 02/23/2017 3:43 PM CDT Performed at [facility], [address] [place] [address] CLIA number [id number] Sunny Giraldo MD LAB_1 Performing Organization Address City/State/ZIP Code Phon e Number PN SOFT [address] [place] [address] [phone] [facility] - Bedside Glucose Monitor (02/22/2017 11:57 AM CDT) P athologist Signature Bedside Blood 297 mg/dL PN SOFT Glucose Test Specimen Anatomical Collection Method Collection Time Receive d Time (Source) Location / / Volume Laterality 02/22/2017 11:57 02/22/2017 AM CDT 11:57 AM CDT Narrative PN SOFT - 02/22/2017 12:05 PM CDT Performed at [facility], [address] [place] [address] CLIA number [id number] Sunny Giraldo MD LAB_1 Performing Organization Address City/State/ZIP Code Phon e Number ROMAN SOFT [address] [place] [address] documented in this encounter Visit Diagnoses Diagnosis [...] (HRC) documented in this encounter Care Teams Company Truck Driver Relationship Specialty Start Date End Date Sunny Giraldo MD PCP - General Family Practice 02/21/17 08/08/20 [address] [place] [address] documented as of this encounter
--- OUTSIDE RECORDS SUMMARY | 2022-06-28 08:58 | XMS_ITS | Encounter Summary ---
:1960 Author Organization [email or web address] Address [address] [place] [address] Care Team Providers Name Role Phone Jun Benz MD Primary Care Provider Encounter Details Date Type Department Care Team Description 02/19/2017 Lab Visit [facility] High glucose; [address] Abnormal results of [place] [address] Social History Tobacco Use [...] Results Urine Culture (02/19/2017 3:00 PM CDT) [facility] Liveyearbook Method Time Signature Source Urine PN SOFT Site PN SOFT Urine Culture No Growth 02/20/2017 PN SOFT After 1 Day 4:46 PM CDT Specimen (Source) Anatomical Collection Method Collection Time Re ceived Time Location / / Volume Laterality Urine: 02/19/2017 3:00 PM CDT Narrative PN SOFT - 02/20/2017 4:46 PM CDT Performed at [facility], [address] [place] [address], CLIA Number [id number] Sunny Giraldo MD LAB_1 Performing Organization Address [facility] Phon e Number PN SOFT [address] [place] [address] (ABNORMAL) Liver Panel(Hepatic Function Panel) (02/19/2017 3:00 PM CDT) [facility] Liveyearbook Method Time Signature Alk Phos 71 40 [...] - 02/19/2017 2:44 PM CDT Performed at [facility], [address] [place] [address] CLIA number [id number] Sunny Giraldo MD LAB_1 Performing Organization Address [facility] [place] [facility] Phon e Number PN SOFT [address] [place] [address] [phone] (ABNORMAL) Hemoglobin A1C Glycosylated (02/19/2017 3:00 PM CDT) P athologist Signature HGB A1C 9.3 (H) 4.0 - 5.6 % PN SOFT Specimen Anatomical Collection Method Collection Time Receive d Time (Source) Location / / Volume Laterality Urine: 02/19/2017 3:00 PM 7 6:28 CDT PM CDT Narrative PN SOFT - 02/19/2017 5:05 PM CDT Performed at [facility] [address] [place] [address] CLIA number [id number] Sunny Giraldo MD LAB_1 Performing Organization Address [facility] Phon e Number PN SOFT [address] [place] [address] (ABNORMAL) Urine Microscopic (02/19/2017 11:51 AM CDT) [facility] Method Time Signature Urine WBC 5-9 (A) [...] - 02/19/2017 3:04 PM CDT Performed at [facility], [address] [place] [address] CLIA number [id number] Sunny Giraldo MD LAB_1 Performing Organization Address City/[facility] Phon e Number PN SOFT [address] [place] [address] (ABNORMAL) UR NPT Hold for Culture (02/19/2017 11:51 AM CDT) [facility] Method Time Signature Urine Type URINE:clean PN [...] U Specific 1.025 1.005 - PN SOFT [place] 1.030 Urobilinogen 1.0 Negative PN SOFT Urine Eu/dL Turbidity Clear Clear PN SOFT Color Yellow PN SOFT Specimen Anatomical Collection Method Collection Time Receive d Time (Source) Location / / Volume Laterality 02/19/2017 11:51 02/19/2017 AM CDT 11:51 AM CDT Narrative PN SOFT - 02/19/2017 12:30 PM CDT Performed at [facility], [address] [place] [address] CLIA number [id number] Sunny Giralod MD LAB_1 Performing Organization Address [facility] [place] [facility] Phon e Number PN SOFT [address] [place] [address] (ABNORMAL) Glucose (02/19/2017 11:51 AM CDT) athologist Signature Lab Glucose 304 (H) 70 - 100 PN SOFT mg/dL Comment: The stated glucose range is for the fast ing state. Non-fasting glucose range is 70-180 mg/d L Specimen Anatomical Collection Method Collection Time Receive d Time (Source) Location / / Volume Laterality 02/19/2017 11:51 02/19/2017 2:28 AM CDT PM CDT Narrative PN SOFT - 02/19/2017 2:49 PM CDT Performed at [facility], [address] [place] [address] CLIA number [id number] Sunny Giraldo MD LAB_1 Performing Organization Address City/[facility] Phon e Number PN SOFT [address] [place] [address] [phone] documented in this encounter Visit Diagnoses Diagnosis High glucose Abnormal results of liver function studi es Nonspecific abnormal results of liver fu nction study documented in this encounter Care Teams Brim Buster Relationship Specialty Start Date End Date Jun Benz MD PCP - General 10/12/15 02/20/17 [address] [place] [address] documented as of this encounter
--- OUTSIDE RECORDS SUMMARY | 2022-06-28 08:58 | XMS_ITS | Encounter Summary ---
:1960 Author Organization [employer] Address [address] [place] [address] Care Team Providers Name Role Phone Jun Benz MD Primary Care Provider Encounter Details Date Type Department Care Team Description 05/11/2016 Immunization [facility] Need for prophylactic [address] [place] [address] inoculation against [phone] influenza (Prim yadira Dx) Social History Tobacco [...] Primary documented in this encounter Care Teams Electrical Appliance Servicer Relationship Specialty Start Date End Date Jun Benz MD PCP - General 10/12/15 02/20/[address] [place] [address] documented as of this encounter
--- OUTSIDE RECORDS SUMMARY | 2022-06-28 08:58 | XMS_ITS | Encounter Summary ---
:1960 Author Organization [employer] Address [address] [address] Care Team Providers Name Role Phone Jun Benz MD Primary Care Provider Encounter Details Date Type Department Care Team Description 10/23/2015 Lab Visit [facility] 3850 Screening for colon cancer Laboratory [address] [place], [place] [address] Social History Tobacco Use Types Packs/Day Years Used Date Smoking Tobacco: Never Assessed Sex Assigned at Date Recorded Not on file documented as of this encounter Progress Notes Jun Benz MD - 10/26/2015 12:12 PM CDT Quick Note: mychart [employer] documented in this encounter Miscellaneous Notes Miscellaneous - 08/29/2016 7:57 PM CSTNotes Recorded by Jun Benz MD on 10/26/2015 at 12:12 PMmychart [employer] documented in this encounter Plan of Treatment Not on filedocumented as of this encounter Procedures Procedure Name Priority Date/Time Associated Comments Diagnosis FIT COLLECTION KIT Routine 10/23/2015 10:00 AM Screening for c olon Results for this PREP CDT cancer procedure are i n the results section. documented in this encounter Results FIT Collection Kit Prep (10/23/2015 10:00 AM CDT) Analysis Performed At [facility] Time Signature Occult Blood Negative Negative HP CONVERSION Result Specimen Anatomical Collection Method Collection Time Receive d Time (Source) Location / / Volume Laterality 10/23/2015 10:00 10/23/2015 AM CDT 12:50 PM CDT Narrative HP CONVERSION - 10/26/2015 11:29 AM CDT Performed at [facility], [address] [place] [address] CLIA number [id number] Transcriptions 08/29/2016 7:57 PM CSTNotes Recorded by Jun Benz MD on 10/26/2015 at 12:12 PMmychart Jun Benz MD LAB_1 Performing Organization Address City/State/ZIP Code Phon e Number HP CONVERSION documented in this encounter Visit Diagnoses Diagnosis Screening for colon cancer Special screening for malignant neoplasm s, colon documented in this encounter Care Teams Pest Control Specialist Relationship Specialty Start Date End Date Jun Benz MD PCP - General 10/12/15 02/20/17 [address] [place] [address] documented as of this encounter
--- OUTSIDE RECORDS SUMMARY | 2022-06-28 08:58 | XMS_ITS | Encounter Summary ---
:1960 Author Organization [employer] Address [address] [place] [address] Care Team Providers Name Role Phone Sunny Giraldo MD Primary Care Provider Reason for Visit Reason Comments Type 2 Diabetes Uncontrolled Encounter Details Date Type Department Care Team Description 03/28/2017 Notes/Orders [place] Maria Guadalupe Welch, Type II or International Diabet RN, CDE unspecified type [address] [place] [address] without mention of [phone] [place], [address] uncontrolled (HRC) [phone] (Primary Dx) (Work) Social History Tobacco Use [...] healthy Education (05/30/2017 ASHIA Crews, 4:29 PM COSMETIC DENTIST) ASHLEY, CHEIKH Note: Formatting of this note might be d ifferent from the original. Count carbohydrates at meals and snacks. documented as of this encounter Visit Diagnoses Diagnosis Type II or unspecified type diabetes serafin litus without mention of complication, uncontrolled - Primary documented in this encounter Care Teams Entry Level Financial Analyst Relationship Specialty Start Date End Date Snuny Giraldo MD PCP - General Family Practice 02/21/17 08/08/20 [address] [place] [address] documented as of this encounter
--- OUTSIDE RECORDS SUMMARY | 2022-06-28 08:58 | XMS_ITS | Encounter Summary ---
:1960 Author Organization [employer] Address [address] [place] [address] Care Team Providers Name Role Phone Pita Giraldo MD Primary Care Provider Reason for Visit Reason Comments Diabetes Encounter Details Date Type Department Care Team Description 03/15/2017 Office Visit [facility] Pita Giraldo M D Hyperlipidemia, unspecified hyperlipidem ia type (Primary Dx); Medicine [address] Chronic kidney disease, stage III (moder ate) ([facility]); [address] [place], [place] Type 2 diabetes mellitus wit hout complication, without long-term current use of insulin ([facility]); [place] [address] Essential hypertension; [address] Liver enzyme elevation Social [...] 03/28/2017 07:32 AM Modules accepted: Orders Pita Giraldo MD - 03/15/2017 1:50 PM CDT NAME: JOSH MOSLEY MR#: [id number] CSN: [id number] AUTHENTICATING CLINICIAN: Pita Giraldo MD CONFIRM #: [id number] LOC: 4402 CLINIC PROGRESS NOTE DATE OF [...] kidney disease, GE reflux. He sees a commercial leasing agent also. He was on Tenormin 50 mg, [...] The patient agreed. YO:MEDQ C: CONFIRM #: [id number] Pita Giraldo MD - 03/15/2017 1:00 PM CDT Please pt need to come for lab test only tomorrow or today ,it been ordered. documented in this encounter Plan of Treatment Not on filedocumented as of this encounter Results (ABNORMAL) Microalbumin Urine Random (UMAR) (04/24/2017 4:17 PM CDT) [facility] Method Time Signature Microalbumin 31.1 mg/L PN SOFT Urine U Creat Random 65 mg/dL PN SOFT Microalbumin/Crea 47.8 (H) 0.0 - PN SOFT tinine Ratio 30.0 Specimen Anatomical Collection Method Collection Time Receive d Time (Source) Location / / Volume Laterality Urine specimen 04/24/2017 4:17 PM 017 8:39 (specimen) CDT PM CDT Narrative PN SOFT - 04/24/2017 9:03 PM CDT Performed at [facility], [address] [place] [address] CLIA number [id number] Pita Giraldo MD LAB_1 Performing Organization Address [facility] Phon e Number PN SOFT [address] [place] [address] (ABNORMAL) Liver Panel(Hepatic Function Panel) (04/24/2017 4:08 PM CDT) Patholo gist Method Time Signature Alk Phos 52 40 [...] - 04/24/2017 8:57 PM CDT Performed at [facility], [facility] [address] [place] [address] CLIA number [id number] Pita Giraldo MD LAB_1 Performing Organization Address City/[facility] Phon e Number PN SOFT [address] [place] [address] (ABNORMAL) Basic Metabolic Panel (04/24/2017 4:08 PM [...] - 04/24/2017 8:57 PM CDT Performed at [facility], [address] [place] [address] CLIA number [id number] Pita Giraldo MD LAB_1 Performing Organization Address City/State/ZIP Code Phon e Number PN SOFT [address] [place] [address] (ABNORMAL) Hgb A1c (04/24/2017 4:08 PM CDT) P athologist Signature HGB A1C 6.2 (H) 4.0 - 5.6 % PN SOFT Specimen Anatomical Collection Method Collection Time Receive d Time (Source) Location / / Volume Laterality 04/24/2017 4:08 PM 7 9:26 CDT PM CDT Narrative PN SOFT - 04/25/2017 10:37 AM CDT Performed at [facility], [address] [place] [address] CLIA number [id number] Pita Giraldo MD LAB_1 Performing Organization Address City/[facility] Code Phon e Number PN SOFT [address] [place] [address] (ABNORMAL) Potassium (03/15/2017 1:46 PM CDT) P athologist Signature Potassium 3.4 (L) 3.5 - 5.2 PN SOFT mmol/L Specimen Anatomical Collection Method Collection Time Receive d Time (Source) Location / / Volume Laterality 03/15/2017 1:46 PM 7 2:37 CDT PM CDT Narrative PN SOFT - 03/15/2017 3:42 PM CDT Performed at [facility], [facility] [address] [place] [address] CLIA number [id number] Pita Giraldo MD LAB_1 Performing Organization Address [facility] Phon e Number PN SOFT [address] [place] [address] [phone] (ABNORMAL) Creatinine (03/15/2017 1:46 PM CDT) Analysis [...] - 03/15/2017 3:42 PM CDT Performed at [facility], [facility] [address] [place] [address] CLIA number [id number] Pita Giraldo MD LAB_1 Performing Organization Address City/[facility] Phon e Number PN SOFT [address] [place] [address] [phone] documented in this encounter Visit Diagnoses Diagnosis [...] hypertension documented in this encounter Care Teams Yeast Supervisor Relationship Specialty Start Date End Date Pita Giraldo MD PCP - General Family Practice 02/21/17 08/08/20 [address] [address] [place] [address] documented as of this encounter
--- OUTSIDE RECORDS SUMMARY | 2022-06-28 08:58 | XMS_ITS | Encounter Summary ---
:1960 Author Organization [employer] Address [address] [place] [address] Care Team Providers Name Role Phone Pita Giraldo MD Primary Care Provider Encounter Details Date Type Department Care Team Description 04/01/2017 Lab Visit [facility] Chronic kidney disease, stag e III (moderate) ([facility]); [address] [place] [address] Social History Tobacco Use Types Packs/Day Years Used Date Smoking Tobacco: Never Smokeless Tobacco: Never Alcohol Use Standard Drinks/Week Comments Yes 0 (1 standard drink = 0.6 oz pure Alcoho lic Drinks/day: Amount:1-2 alcohol) drinks; Freq:=< Curt hly; Sex Assigned at Date Recorded Not on file documented as of this encounter Progress Notes Pita Giraldo MD - 04/04/2017 2:11 PM CDT Addended by: PITA GIRALDO on: 04/04/2017 02:11 PM Modules accepted: Orders documented in this encounter Plan of Treatment Not on filedocumented as of this encounter Goals Goal Patient Goal Associated Recent Patient-Stated? Author Type Problems Progress Eating Diabetes On track No [place] healthy Education (05/30/2017 ASHIA Crews, 4:29 PM RURAL CARRIER) ASHLEY, CDCES Note: Formatting of this note might be d ifferent from the original. Count carbohydrates at meals and snacks. documented as of this encounter Procedures Procedure Name Priority Date/Time Associated Diagnosis Comme nts CREATININE / GFR Routine 04/01/2017 4:59 PM Chronic kidney Res ults for this CDT disease, stage III procedure are in (moderate) (HRC) the results Essential hypertension secti on. POTASSIUM Routine 04/01/2017 4:59 PM Chronic kidney Results for this CDT [...] - 04/01/2017 8:58 PM CDT Performed at [facility], [address] [place] [address] CLIA number [id number] Pita Giraldo MD LAB_1 Performing Organization Address City/State/ZIP Code Phon e Number PN SOFT [address] [place] [address] [phone] Potassium (04/01/2017 4:59 PM CDT) P athologist Signature Potassium 3.5 3.5 - 5.2 PN SOFT mmol/L Specimen Anatomical Collection Method Collection Time Receive d Time (Source) Location / / Volume Laterality 04/01/2017 4:59 PM 7 8:40 CDT PM CDT Narrative PN SOFT - 04/01/2017 8:58 PM CDT Performed at [facility], [address] [facility], [place] [address] CLIA number [id number] Pita Giraldo MD LAB_1 Performing Organization Address City/State/ZIP Code Phon e Number PN SOFT [address] [place] [address] documented in this encounter Visit Diagnoses Diagnosis Chronic kidney disease, stage III (moder ate) (HRC) Chronic kidney disease, Stage III (moder ate) Essential hypertension (HRC) Unspecified essential hypertension documented in this encounter Care Teams Client Server Programmer Relationship Specialty Start Date End Date Pita Giraldo MD PCP - General Family Practice 02/21/17 08/08/20 [address] [place] [address] documented as of this encounter
--- OUTSIDE RECORDS SUMMARY | 2022-06-28 08:58 | XMS_ITS | Encounter Summary ---
:1960 Author Organization [employer] Address [address] [place] [address] Care Team Providers Name Role Phone Sunny Giraldo MD Primary Care Provider Encounter Details Date Type Department Care Team Description 02/23/2017 Lab Visit [facility] Type 2 diabetes mellitus [address] without complication, [place] [address] without long-term current [phone] use of insulin (HRC) Social History Tobacco [...] If Trig High (02/23/2017 9:28 AM CDT) [facility] Method Time Signature Cholesterol 197 0 - [...] / / Volume Laterality 02/23/2017 9:28 AM 201 7 3:16 CDT PM CDT Narrative PN SOFT - 02/23/2017 3:43 PM CDT Performed at [facility], [address] [facility], [place] [address] CLIA number [id number] Sunny Giraldo MD LAB_1 Performing Organization Address City/State/ZIP Code Phon e Number PN SOFT [address] [place] [address] [phone] documented in this encounter Visit Diagnoses Diagnosis Type 2 diabetes mellitus without complic ation, without long-term current use of insulin (HRC) documented in this encounter Care Teams Linotypist Relationship Specialty Start Date End Date Sunny Giraldo MD PCP - General Family Practice 02/21/17 08/08/20 [address] [place] [address] documented as of this encounter
--- OUTSIDE RECORDS SUMMARY | 2022-06-28 08:58 | XMS_ITS | Encounter Summary ---
:1960 Author Organization [employer] Address [address] [place] [address] Care Team Providers Name Role Phone Jun Benz MD Primary Care Provider Reason for Visit Reason Comments Follow-up elevated glucose Encounter Details Date Type Department Care Team Description 02/19/2017 Office Visit [facility] Sunny Giraldo M D High glucose (Primary Dx); Medicine [address] [address] Abnormal results of liver function studi es [address] [place] [address] Social History Tobacco Use Types Packs/Day [...] 12:22 PM CDT NAME: JOSH MOSLEY MR#: [id number] CSN: [id number] AUTHENTICATING CLINICIAN: Sunny Giraldo MD CONFIRM #: [id number] LOC: 4402 CLINIC PROGRESS NOTE DATE OF VISIT: 02/19/2017 : 1960 SUBJECTIVE: 56-year-old male who is coming today to clinic. He usually sees radiology transporter for his chronic kidney disease stage 3, [...] Because of shortage of the Tenormin, his radiology transporter is going to change it probably to [...] chronic kidney disease under the treatment of radiology transporter. 2. Elevated liver enzymes. Cause not known. [...] back. He agreed. YO:MEDQ C: CONFIRM #: [id number] documented in this encounter Plan of Treatment [...] - 02/19/2017 2:44 PM CDT Performed at [facility], [address] [place] [address] CLIA number [id number] Sunny Giraldo MD LAB_1 Performing Organization Address City/State/ZIP Code Phon e Number PN SOFT [address] [place] [address] [phone] (ABNORMAL) Hemoglobin A1C Glycosylated (02/19/2017 3:00 PM CDT) athologist Signature HGB A1C 9.3 (H) 4.0 - 5.6 % PN SOFT Specimen Anatomical Collection Method Collection Time Receive d Time (Source) Location / / Volume Laterality Urine: 02/19/2017 3:00 PM 7 6:28 CDT PM CDT Narrative PN SOFT - 02/19/2017 5:05 PM CDT Performed at [facility], [address] [place] [address] CLIA number [id number] Sunny Giraldo MD LAB_1 Performing Organization Address [facility]/ZIP Code Phon e Number PN SOFT [address] [place] [address] [phone] (ABNORMAL) UR NPT Hold for Culture (02/19/2017 11:51 AM CDT) Patholo gist Method Time Signature Urine Type URINE:clean [...] U Specific 1.025 1.005 - PN SOFT [place] 1.030 Urobilinogen 1.0 Negative PN SOFT Urine Eu/dL Turbidity Clear Clear PN SOFT Color Yellow PN SOFT Specimen Anatomical Collection Method Collection Time Receive d Time (Source) Location / / Volume Laterality 02/19/2017 11:51 02/19/2017 AM CDT 11:51 AM CDT Narrative PN SOFT - 02/19/2017 12:30 PM CDT Performed at [facility], [address] [place] [address] CLIA number [id number] Sunny Giraldo MD LAB_1 Performing Organization Address [facility] Phon e Number PN SOFT [address] [place] [address] (ABNORMAL) Glucose (02/19/2017 11:51 AM CDT) P [...] - 02/19/2017 2:49 PM CDT Performed at [facility], [address] [place] [address] CLIA number [id number] Sunny Giraldo MD LAB_1 Performing Organization Address City/State/ZIP Code Phon e Number PN SOFT [address] [place] [address] documented in this encounter Visit Diagnoses Diagnosis High glucose - Primary Abnormal results of liver function studi es Nonspecific abnormal results of liver fu nction study High glucose Abnormal results of liver function studi es Nonspecific abnormal results of liver fu nction study documented in this encounter Care Teams Steam Fitter Relationship Specialty Start Date End Date Jun Benz MD PCP - General 10/12/15 02/20/17 [address] [place] [address] documented as of this encounter
--- OUTSIDE RECORDS SUMMARY | 2022-06-28 08:58 | XMS_ITS | Encounter Summary ---
:1960 Author Organization [employer] Address [address] [address] Care Team Providers Name Role Phone Sunny Giraldo MD Primary Care Provider Reason for Visit Reason Comments Type 2 Diabetes Uncontrolled Patient Education Encounter Details Date Type Department Care Team Description 03/28/2017 Office Visit [facility] Typ e II or unspecified Diabet type diabetes mellitus [address] [email or web address] [place] [address] complication, uncontrolled (H RC) (Primary Dx) Social [...] Notes Eleonora Lam, ASHIA, LD, CDCES - 03/28/2017 3:15 PM CDT DIAGNOSIS: Type [...] healthy Education (05/30/2017 ASHIA Crews, 4:29 PM CONCRETE ENGINEERING TECHNICIAN) ASHLEY, CHEIKH Note: Formatting of this note might be d ifferent from the original. Count carbohydrates at meals and snacks. documented as of this encounter Visit Diagnoses Diagnosis Type II or unspecified type diabetes serafin litus without mention of complication, uncontrolled - Primary documented in this encounter Care Teams Car Shagger Relationship Specialty Start Date End Date Sunny Giraldo MD PCP - General Family Practice 02/21/17 08/08/20 [address] [place] [address] documented as of this encounter
--- OUTSIDE RECORDS SUMMARY | 2022-06-28 08:58 | XMS_ITS | Encounter Summary ---
:1960 Author Organization [employer] Address [address] [place] [address] Care Team Providers Name Role Phone Jun Bnez MD Primary Care Provider Reason for Visit Reason Comments Follow-up Encounter Details Date Type Department Care Team Description 02/14/2017 Office Visit [facility] Terrence Hernandez MD Chronic kidney disease (CKD), stage III (moderate) (HRC) (Primary Dx); 3931 Nephrology 3931 [facility] Essential hypertension 3931 [facility] [address] [place] [phone] (Wo rk) Social History Tobacco Use Types [...] Past Medical History: Reviewed and updated in [email or web address]. Pertinent details annotated in the assessment. Patient [...] reference intervals for this test in the [facility] Laboratory Test Directory ([facility]). Performed by [facility], [address] [place] [id number] [email or web address], Mario Smith MD - Lab. Director ??? [...] (if TSH Abnormal) (02/14/2017 9:43 AM CDT) P athologist Signature Thyroid 4.33 0.30 - PN SOFT Stimulating 4.50 Hormone uIU/mL Specimen Anatomical Collection Method Collection Time Receive d Time (Source) Location / / Volume Laterality 02/14/2017 9:43 AM 7 9:56 CDT AM CDT Narrative PN SOFT - 02/14/2017 10:44 AM CDT [place] [address] CLIA number [id number] .Critical GLUC result of 465 called to and read back by RANDALL MEDINA RN,.02/14/2017,10:40, by ANGEL Terrence Hernandez MD LAB_1 Performing [address] [facility] Phon e Number PN SOFT [address] [place] [address] Magnesium - today (02/14/2017 9:43 AM CDT) athologist Signature Magnesium 2.4 1.6 - 2.6 PN SOFT mg/dL Specimen Anatomical Collection Method Collection Time Receive d Time (Source) Location / / Volume Laterality 02/14/2017 9:43 AM 7 9:56 CDT AM CDT Narrative PN SOFT - 02/14/2017 10:37 AM CDT Performed at [facility], [address] [place], [place] [id number] CLIA number [id number] Terrence Hernandez MD LAB_1 Performing Organization Address [facility] Phon e Number PN SOFT [address] [place] [address] Renin Activity (02/14/2017 9:43 AM CDT) athologist [...] angiotensinogen is decreased. See Compliance Statement D: [email or web address] Performed by [facility], [address] [place] [address] [email or web address], Mario Smith MD - Lab . Director Specimen Anatomical Collection Method Collection Time Receive d Time (Source) Location / / Volume Laterality 02/14/2017 9:43 AM 7 9:56 CDT AM CDT Narrative PN SOFT - 02/19/2017 9:10 PM CDT Performed at [facility] [address] [place] [address] CLIA number [id number] .Critical GLUC result of 465 called to and read back by RANDALL MEDINA RN,.02/14/2017,10:40, by ANGEL Terrence Hernandez MD LAB_1 Performing Organization Address City/[facility] Code Phon e Number PN GEE [address] [place] [address] Aldosterone Serum (02/14/2017 9:43 AM CDT) athologist [...] reference intervals for this test in the [facility] Laboratory Test Directory ([facility]ulink). Performed by [facility], [address] [place] [address] [email or web address], Mario Smith MD - Lab . Director Specimen Anatomical Collection Method Collection Time Receive d Time (Source) Location / / Volume Laterality 02/14/2017 9:43 AM 7 9:56 CDT AM CDT Narrative PN SOFT - 02/15/2017 11:33 PM CDT Performed at [facility] [address] [place] [address] CLIA number [id number] .Critical GLUC result of 465 called to and read back by RANDALL MEDINA RN,.02/14/2017,10:40, by [facility] Terrence Hernandez MD LAB_1 Performing Organization Address City/[facility] Code Phon e Number PN SOFT [address] [place] [address] Vitamin D (In house) - today (02/14/2017 9:43 AM CDT) P athologist Signature Vitamin D 25 Oh 31 20 - 80 PN SOFT ng/mL Comment: Deficiency = <20 Adequate ??= 20-29 Preferred = 30-50 Uncertain safety = 51-80 High = >80 Specimen Anatomical Collection Method Collection Time Receive d Time (Source) Location / / Volume Laterality 02/14/2017 9:43 AM 7 9:56 CDT AM CDT Narrative PN SOFT - 02/14/2017 4:57 PM CDT [place] [address] CLIA number [id number] .Critical GLUC result of 465 called to and read back by RANDALL MEDINA RN,.02/14/2017,10:40, by GRONE Terrence Hernandez MD LAB_1 Performing Organization Address [facility] Phon e Number PN SOFT [address] [place] [address] PTH - Parathyroid Hormone Intact - today (02/14/2017 9:43 AM CDT) athologist Signature PTH 41 10 - 100 PN SOFT pg/mL Specimen Anatomical Collection Method Collection Time Receive d Time (Source) Location / / Volume Laterality 02/14/2017 9:43 AM 7 9:56 CDT AM CDT Narrative PN SOFT - 02/14/2017 11:03 AM CDT [place] [address] CLIA number [id number] .Critical GLUC result of 465 called to and read back by RANDALL MEDINA RN,.02/14/2017,10:40, by GRONE Terrence Hernandez MD LAB_1 Performing Organization Address [facility] Phon e Number PN SOFT [address] [place] [address] (ABNORMAL) Renal Function Panel - today (02/14/2017 [...] - 02/14/2017 10:37 AM CDT Performed at [facility], [address] [id number] CLIA number [id number] .Critical GLUC result of 465 called to and read back by RANDALL MEDINA RN,.02/14/2017,10:40, by [facility] Terrence Hernandez MD LAB_1 Performing Organization Address City/State/ZIP Code Phon e Number PN SOFT [address] [place] [address] (ABNORMAL) Microalbumin Urine Random - today (02/14/2017 9:37 AM CDT) [employer] Method Time Signature Microalbumin 108.8 mg/L PN SOFT Urine U Creat Random 83 mg/dL PN SOFT Microalbumin/Crea 131.1 (H) 0.0 - PN SOFT tinine Ratio 30.0 Specimen Anatomical Collection Method Collection Time Receive d Time (Source) Location / / Volume Laterality Urine specimen 02/14/2017 9:37 AM 017 9:55 (specimen) CDT AM CDT Narrative PN SOFT - 02/14/2017 10:51 AM CDT Performed at [facility], [address] [place] [address] CLIA number [id number] .Critical GLUC result of 465 called to and read back by RANDALL MEDINA RN,.02/14/2017,10:40, by ANGEL Terrence Hernandez MD LAB_1 Performing Organization Address City/State/ZIP Code Phon e Number PN SOFT [address] [place] [address] documented in this encounter Visit Diagnoses Diagnosis Chronic kidney disease (CKD), stage III (moderate) (HRC) - Primary Chronic kidney disease, Stage III (moder ate) Essential hypertension (HRC) Unspecified essential hypertension Chronic kidney disease (CKD), stage III (moderate) (HRC) Chronic kidney disease, Stage III (moder ate) documented in this encounter Care Teams Miter Grinder Operator Relationship Specialty Start Date End Date Jun Benz MD PCP - General 10/12/15 02/20/17 [address] [place] [address] documented as of this encounter
--- OUTSIDE RECORDS SUMMARY | 2022-06-28 08:59 | XMS_ITS | Encounter Summary ---
:1960 Author Organization [employer] Address [address] [place] [address] Care Team Providers Name Role Phone Md THEE Yepez Primary Care Provider Reason for Visit Reason Comments HYPERTENSION Encounter Details Date Type Department Care Team Description 12/02/2012 Telephone Specialty Center 3931 Newton Hernandez MD HYPERTENSION Nephrology 3931 [facility] 3931 [facility] [address] [place] [address] [place], [place] [address] (Wo rk) Social History Tobacco Use Types [...] and he directed me to his at [phone]. She said the label did state that [...] message for patient to call us back. Terrence Hernandez MD - 12/02/2012 2:12 PM [...] did take Lopressor, patient cell phone is [phone] documented in this encounter Plan of Treatment Not on filedocumented as of this encounter Visit Diagnoses Not on filedocumented in this encounter Care Teams International Controller Relationship Specialty Start Date End Date Md Yepez MD PCP - General 12/01/12 10/11/15 [place] [address] documented as of this encounter
--- OUTSIDE RECORDS SUMMARY | 2022-06-28 08:59 | XMS_ITS | Encounter Summary ---
:1960 Author Organization [employer] Address [address] [place] [address] Care Team Providers Name Role Phone Md THEE Yepez Primary Care Provider Reason for Visit Reason Comments Refill Encounter Details Date Type Department Care Team Description 01/11/2015 Refill Specialty Center 3931 Newton Hernandez MD Refill Nephrology 3931 [facility] [address] [place] [address] [place], [place] [address] [phone] Social History Tobacco Use Types Packs/Day Years [...] on filedocumented in this encounter Care Teams Medicaid Biller Relationship Specialty Start Date End Date Md Yepez MD PCP - General 12/01/12 10/11/15 [place], [place] [address] documented as of this encounter
--- OUTSIDE RECORDS SUMMARY | 2022-06-28 08:59 | XMS_ITS | Encounter Summary ---
:1960 Author Organization [employer] Address [address] [place] [address] Care Team Providers Name Role Phone Md THEE Yepez Primary Care Provider Reason for Visit Reason Comments Refill Encounter Details Date Type Department Care Team Description 07/17/2014 Refill Specialty Center 3931 Newton Hernandez MD Refill Nephrology 3931 [facility] [address] [place] [address] [place], [place] [address] [phone] Social History Tobacco Use Types Packs/Day Years Used Date Smoking Tobacco: Never Assessed Sex Assigned at Date Recorded Not on file documented as of this encounter Plan of Treatment Not on filedocumented as of this encounter Visit Diagnoses Not on filedocumented in this encounter Care Teams Die Repair Relationship Specialty Start Date End Date Md Yepez MD PCP - General 12/01/12 10/11/15 [place], [place] [address] documented as of this encounter
--- OUTSIDE RECORDS SUMMARY | 2022-06-28 08:59 | XMS_ITS | Encounter Summary ---
:1960 Author Organization [employer] Address [address], [place] [address] Care Team Providers Name Role Phone Md THEE Yepez Primary Care Provider Reason for Visit Reason Comments Refill Encounter Details Date Type Department Care Team Description 10/15/2014 Refill Specialty Center 3931 Newton Hernandez MD Refill Nephrology 3931 [facility] [address] [place] [address] [place], [place] [address] [phone] Social History Tobacco Use Types Packs/Day Years Used Date Smoking Tobacco: Never Assessed Sex Assigned at Date Recorded Not on file documented as of this encounter Plan of Treatment Not on filedocumented as of this encounter Visit Diagnoses Not on filedocumented in this encounter Care Teams Insurance Claims Processor Relationship Specialty Start Date End Date Md Yepez MD PCP - General 12/01/12 10/11/15 [place], [place] [address] documented as of this encounter
--- OUTSIDE RECORDS SUMMARY | 2022-06-28 08:59 | XMS_ITS | Encounter Summary ---
:1960 Author Organization [employer] Address [address] [place] [address] Care Team Providers Name Role Phone Md THEE Yepez Primary Care Provider Encounter Details Date Type Department Care Team Description 12/01/2012 Lab Visit [facility] Unspecified essential hypert ension; [address] [address]. Chronic kidney disease (CKD) , stage III (moderate); [place] [address] Other malaise and fatigue [phone] Social History Tobacco Use Types Packs/Day Years [...] (CKD), stage section . III (moderate) ( [facility]) Other malaise and fatigue GLUCOSE Routine 12/01/2012 [...] (moderate) ( [facility]C) Other malaise and fatigue CREATININE / GFR Routine 12/01/2012 6:28 PM Unspecified essent ial Results for this CDT hypertension (HR C) procedure are in Chronic kidney the results disease (CKD), stage section . III (moderate) ( [facility]) Other malaise and fatigue ELECTROLYTE PANEL Routine 12/01/2012 6:28 PM Unspecified essen tial Results for this CDT hypertension (HR C) procedure are in Chronic kidney the results disease (CKD), stage section . III (moderate) ( [facility]) Other malaise and fatigue ALBUMIN/CREAT RATIO Routine 12/01/2012 6:28 PM Chronic kidney Results for this CDT disease (CKD), stage procedu re are in III (moderate) ([facility]) the res ults section. CALCIUM Routine 12/01/2012 6:28 PM Unspecified essential Results for this CDT hypertension (HR C) procedure are in Chronic kidney the results disease (CKD), stage section . III (moderate) ( [facility]) Other malaise and fatigue BUN Routine 12/01/2012 6:28 PM Unspecified essential Results for this CDT hypertension (HR C) procedure are in Chronic kidney the results disease (CKD), stage section . III (moderate) ( [facility]) Other malaise and fatigue documented in this [...] THYROID STIMULATING HORMONE (12/01/2012 6:28 PM CDT) athologist Signature Thyroid 3.88 0.20 - HP CONVERSION Stimulating 4.50 mIU/L Hormone Specimen Anatomical Collection Method Collection Time Receive d Time (Source) Location / / Volume Laterality 12/01/2012 6:28 PM 3 9:22 CDT PM CDT Terrence Hernandez MD LAB_1 Performing Organization Address City/State/ZIP Code Phon e Number HP CONVERSION TESTOSTERON [...] - 12/04/2012 11:47 AM CDT Performed at [facility] [address] [place] [address] Terrence Hernandez MD LAB_1 Performing Organization Address [facility] Code Phon e Number HP CONVERSION Calcium (12/01/2012 6:28 PM CDT) athologist Signature Calcium 9.6 8.5 - 10.5 HP CONVERSION mg/dL Specimen Anatomical Collection Method Collection Time Receive d Time (Source) Location / / Volume Laterality 12/01/2012 6:28 PM 3 8:31 CDT PM CDT Narrative HP CONVERSION - 12/01/2012 8:56 PM CDT Performed at [facility], [address] [place] [address] Terrence Hernandez MD LAB_1 Performing Organization Address City/[facility] Code Phon e Number HP CONVERSION Electrolyte [...] - 12/01/2012 8:56 PM CDT Performed at [facility], [address] [place] [address] Terrence Hernandez MD LAB_1 Performing Organization Address [facility] Phon e Number HP CONVERSION GLUCOSE (12/01/2012 6:28 PM CDT) athologist Signature Lab Glucose 90 60 - 100 HP CONVERSION mg/dL Specimen Anatomical Collection Method Collection Time Receive d Time (Source) Location / / Volume Laterality 12/01/2012 6:28 PM 3 8:31 CDT PM CDT Narrative HP CONVERSION - 12/01/2012 8:56 PM CDT Performed at [facility], [address] [place] [address] Terrence Hernandez MD LAB_1 Performing Organization Address [facility] Phon e Number HP CONVERSION BUN (12/01/2012 6:28 PM CDT) athologist Signature Blood Urea 19 5 - 26 HP CONVERSION Nitrogen mg/dL Specimen Anatomical Collection Method Collection Time Receive d Time (Source) Location / / Volume Laterality 12/01/2012 6:28 PM 3 8:31 CDT PM CDT Narrative HP CONVERSION - 12/01/2012 8:56 PM CDT Performed at [facility], [address] [place] [address] Terrence Hernandez MD LAB_1 Performing Organization Address [facility] Phon e Number HP CONVERSION (ABNORMAL) Creatinine / GFR (12/01/2012 6:28 PM CDT) [facility] Creatinine 1.4 (H) 0.4 [...] - 12/01/2012 8:56 PM CDT Performed at [facility], [address] [place] [address] Terrence Hernandez MD LAB_1 Performing Organization Address City/State/ZIP Code Phon e Number HP CONVERSION documented in this encounter Visit Diagnoses Diagnosis Unspecified essential hypertension (HRC) Unspecified essential hypertension Chronic kidney disease (CKD), stage III (moderate) (HRC) Chronic kidney disease, Stage III (moder ate) Other malaise and fatigue documented in this encounter Care Teams College President Relationship Specialty Start Date End Date Md Yepez MD PCP - General 12/01/12 10/11/15 [place] [address] documented as of this encounter
--- OUTSIDE RECORDS SUMMARY | 2022-06-28 08:59 | XMS_ITS | Encounter Summary ---
:1960 Author Organization [employer] Address [address] [place] [address] Care Team Providers Name Role Phone Md THEE Yepez Primary Care Provider Reason for Visit Reason Comments Refill Encounter Details Date Type Department Care Team Description 05/04/2014 Refill Specialty Center 3931 Newton Hernandez MD Refill Nephrology 3931 [facility] [address] [place] [address] [place], [place] [address] [phone] Social History Tobacco Use Types Packs/Day Years Used Date Smoking Tobacco: Never Assessed Sex Assigned at Date Recorded Not on file documented as of this encounter Plan of Treatment Not on filedocumented as of this encounter Visit Diagnoses Not on filedocumented in this encounter Care Teams American History Professor Relationship Specialty Start Date End Date Md Yepez MD PCP - General 12/01/12 10/11/15 [place], [place] [address] documented as of this encounter
--- OUTSIDE RECORDS SUMMARY | 2022-06-28 08:59 | XMS_ITS | Encounter Summary ---
:1960 Author [facility] Address [address] [place] [address] Care Team Providers Name Role Phone Hansa Lewis APRN, CNP Primary Care Provider [phone] Reason for Visit Reason Comments Refill Encounter Details Date Type Department Care Team Description 10/30/2012 Refill Specialty Center 3931 Newton Hernandez MD Refill Nephrology 3931 [facility] [address] [place] [address] [place] [address] [phone] Social History Tobacco Use Types Packs/Day Years Used Date Smoking Tobacco: Never Assessed Sex Assigned at Date Recorded Not on file documented as of this encounter Plan of Treatment Not on filedocumented as of this encounter Visit Diagnoses Not on filedocumented in this encounter Care Teams Veterinary Technician Relationship Specialty Start Date End Date Hansa Lewis APRN, CNP PCP - General 10/22/10 11/30/12 [address] [place] [id number] documented as of this encounter
--- OUTSIDE RECORDS SUMMARY | 2022-06-28 08:59 | XMS_ITS | Encounter Summary ---
:1960 Author Organization [employer] Address [address] [place] [address] Care Team Providers Name Role Phone Hansa Lewis APRN, CNP Primary Care Provider [phone] Encounter Details Date Type Department Care Team Description 12/03/2011 Lab Visit [facility] Proteinuria; [address] CKD (chronic kidney disease) stage 3, GFR 30-59 ml/[place] [address] Social History Tobacco Use Types Packs/Day Years [...] Panel(Hepatic Function Panel) (12/03/2011 1:53 PM CDT) [facility] Method Time Signature Alk Phos 51 25 [...] - 12/03/2011 3:24 PM CDT Performed at [facility], [address] [place] [address] Terrence Hernandez MD LAB_1 Performing Organization Address [facility] Phon e Number HP CONVERSION (ABNORMAL) Basic Metabolic Panel (12/03/2011 1:53 PM CDT) [facility] gist Method Time Signature Creatinine Serum 1.3 0.4 [...] - 12/03/2011 3:24 PM CDT Performed at [facility], [address] [place] [address] Terrence Hernandez MD LAB_1 Performing Organization Address City/State/ZIP Code Phon e Number HP CONVERSION documented in this encounter Visit Diagnoses Diagnosis Proteinuria CKD (chronic kidney disease) stage 3, GF R 30-59 ml/min (HRC) Chronic kidney disease, Stage III (moder ate) documented in this encounter Care Teams Laboratory Phlebotomist Relationship Specialty Start Date End Date Hansa Lewis APRN, OTR REFRIGERATED CDL TRUCK DRIVER PCP - General 10/22/10 11/30/12 [address] [place] [address] documented as of this encounter
--- OUTSIDE RECORDS SUMMARY | 2022-06-28 08:59 | XMS_ITS | Encounter Summary ---
:1960 Author Organization [facility] Address [address] [place] [address] Care Team Providers Name Role Phone Md THEE Yepez Primary Care Provider Encounter Details Date Type Department Care Team Description 06/03/2013 Notes/Orders Specialty Center 3931 Newton Hernandez MD Nephrology 3931 [facility] 3931 [facility] [address] [place] [address] [phone] Social History Tobacco Use Types Packs/Day Years Used Date Smoking Tobacco: Never Assessed Sex Assigned at Date Recorded Not on file documented as of this encounter Plan of Treatment Not on filedocumented as of this encounter Visit Diagnoses Not on filedocumented in this encounter Care Teams Reference Data Expert Relationship Specialty Start Date End Date Md Yepez MD PCP - General 12/01/12 10/11/15 [place], [place] [address] documented as of this encounter
--- OUTSIDE RECORDS SUMMARY | 2022-06-28 08:59 | XMS_ITS | Encounter Summary ---
:1960 Author Organization [employer] Address [address] [place] [address] Care Team Providers Name Role Phone Md THEE Yepez Primary Care Provider Reason for Visit Reason Comments Chronic Kidney Disease Encounter Details Date Type Department Care Team Description 10/14/2014 Office Visit [facility] 3931 Newton Hernandez MD Chronic kidney disease, stage III (moder ate) (Primary Dx); Nephrology 3931 [facility] Vitamin D deficiency; 3931 [facility] [address] [place] [address] [phone] (Wo rk) Social History Tobacco Use Types Packs/Day Years Used Date Smoking Tobacco: Never Assessed Sex Assigned at Date Recorded Not on file documented as of this encounter Last Filed Vital Signs Vital Sign Reading Time Taken Comments Blood Pressure 131/86 10/14/2014 8:50 AM CDT Pulse 68 10/14/2014 8:50 AM CDT Temperature - - Respiratory Rate - - Oxygen Saturation - - Inhaled Oxygen Concentration - - Weight 94.8 kg (209 lb) 10/14/2014 8:50 AM CDT Height 185.4 cm (6' 1) 10/14/2014 8:50 AM CDT Body Mass Index 27.57 10/14/2014 8:50 AM CDT documented in this encounter Patient Instructions Patient InstructionsTeTerrence hercules MD - 10/14/2014 9:18 AM CDT 1. If you get another diarrheal illness (anything that causes significant dehydration), please stop the chlorthalidone and losartan. 2. Repeat your labs today. documented in this encounter Progress Notes Terrence Hernandez MD - 10/17/2014 8:31 PM CDT S: Mr. Bryce Mosley is a 54 y.o. 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 The patient feels okay. However, he went to [place] and returned about 2weeks ago. He developed severe diarrhea for which he went to see a adjunct lecturer (actually his 's since he couldn't get in to see his). he was started on an antibiotic and actually feels much better. He is improving. He's down to two pasty bowel movements per day. He was also diagnosed with a UTI and that's likely the reason for the ABx (I have no records). He then developed severe hypokalemia and was started on on potassium supplements that really upset his stomach. Prior to this acute illness he was feeling okay with no swelling, no nocturia, no BPH symptoms. ROS: Negative except for that in the HPI. Meds: Reviewed by me in the EMR. Anti-HTN include: atenolol 50mg every day. chlorthalidone 25mg every day losartan 25mg every day. BP 131/86 Pulse 68 Ht 6' 1 (1.854 m) Wt 209 lb (94.802 kg) BMI 27.58 kg/m2 Genl:alert, no distress, cooperative, smiling overweight HEENT:Sclera clear, anicteric CV: Regular rate and rhythm, S1, S2, no murmurs/rubs/gallops Lungs: clear to auscultation without wheezes or rales Abd:Soft, non-tender, normal bowel sounds. No bruits, organomegaly or masses. ext: no edema No visits with results within 1 Month(s) from this visit. Latest known visit with results is: Lab Visit on 03/31/2014 Component Date Value Ref Range Status ??? Lab Glucose 03/31/2014 106* 60 - 100 mg/dL Final ??? Sodium 03/31/2014 138 137 - 147 Final ??? Potassium 03/31/2014 3.5 3.5 - 5.2 Final ??? Chloride 03/31/2014 99 98 - 110 Final ??? Blood Urea Nitrogen 03/31/2014 28* 5 - 26 mg/dL Final ??? Albumin 03/31/2014 4.8 3.4 - 5.0 g/dL Final ??? Calcium 03/31/2014 9.9 8.5 - 10.5 mg/dL Final ??? Phosphorus Serum 03/31/2014 4.0 2.5 - 4.5 mg/dL Final ??? Bicarbonate 03/31/2014 30 23 - 33 mmol/L Final ??? Creatinine Serum 03/31/2014 1.4* 0.4 - 1.3 mg/dL Final ? ? Est GFR Am 03/31/2014 >60 >60 Final ? ? Est GFR Non-Afr Am 03/31/2014 53* >60 Final Comment: Normal>60, moderate decrease 30 - 59, severe decrease 15 - 29, renal failure <15 mL/min/1.73 m2 NOTE: Choose the eGFR result above appropriate for the race of the patient. ??? White Blood Cell Count 03/31/2014 9.7 3.8 - 11.0 Final ??? Red Blood Cell Count 03/31/2014 5.32 4.20 - 5.90 Final ??? Hemoglobin 03/31/2014 16.4 13.4 - 17.5 g/dL Final ??? Hematocrit 03/31/2014 44.2 39.0 - 51.0 % Final ??? Mean Corpuscular Volume 03/31/2014 83.1 80.0 - 100.0 fL Final ??? RDW 03/31/2014 13.2 11.0 - 15.0 % Final ??? Platelet Count 03/31/2014 327 140 - 450 Final ??? Microalbumin Urine 03/31/2014 7.8 Final ??? U Creat Random 03/31/2014 113 Final ??? Microalbumin/Creatinine Ratio 03/31/2014 6.9 0.0 - 30.0 Final ??? Absolute Neutrophils 03/31/2014 5.6 1.8 - 8.0 Final ??? Absolute Lymphocytes 03/31/2014 3.0 1.1 - 4.0 Final ??? Absolute Monocytes 03/31/2014 0.8 0.2 - 0.8 Final ??? Absolute Eosinophils 03/31/2014 0.2 0.0 - 0.5 Final ??? Absolute Basophils 03/31/2014 0.0 0.0 - 0.2 Final A: Mr. Bryce Mosley is a 54 y.o. with stage 3 CKD, acute gastroenteritis, hypokalemia, and HTN. 1. CKD 3: from htn nephrosclerosis. The biopsy was inconclusive. Minimal proteinuria his BP is now well controlled. 2. Hypokalemia: Explained to the patient and his the reason for the hypokalemia. I will check his labs and if his K is okay he can stop his potassium supplement. 3. Gastroenteritis: resolved. 4. HTN: well controlled. Return to Clinic in 12mo with labs. 15 of this 25 minute visit was spent in counseling and education documented in this encounter Plan of Treatment Not on filedocumented as of this encounter Visit Diagnoses Diagnosis Chronic kidney disease, stage III (moder ate) (HRC) - Primary Chronic kidney disease, Stage III (moder ate) Vitamin D deficiency (HRC) Unspecified vitamin D deficiency Acute infectious diarrhea Intestinal infection due to other organi sm, not elsewhere classified documented in this encounter Care Teams Oracle Database Consultant Relationship Specialty Start Date End Date Md Yepez MD PCP - General 12/01/12 10/11/15 [place] [address] documented as of this encounter
--- OUTSIDE RECORDS SUMMARY | 2022-06-28 08:59 | XMS_ITS | Encounter Summary ---
:1960 Author Organization [employer] Address [address] [place] [address] Care Team Providers Name Role Phone Md THEE Yepez Primary Care Provider Encounter Details Date Type Department Care Team Description 10/14/2014 Lab Visit Specialty Center 3931 Chroni c kidney disease, stage III (moderate); Outpatient [facility]ator [facility] Vitamin D deficiency 3931 [place], [place] [id number] Social History Tobacco Use Types Packs/Day Years [...] - 10/14/2014 10:33 AM CD[place] [address] Terrence Hernandez MD LAB_1 Performing Organization Address [facility] Phon e Number HP CONVERSION Vitamin D [...] - 10/14/2014 12:17 PM [place] [address] Terrence Hernandez MD LAB_1 Performing Organization Address [facility] Phon e Number HP CONVERSION Intact PTH (10/14/2014 9:48 AM CDT) athologist Signature PTH 38 10 - 100 HP CONVERSION pg/mL Specimen Anatomical Collection Method Collection Time Receive d Time (Source) Location / / Volume Laterality 10/14/2014 9:48 AM 5 9:56 CDT AM CDT Narrative HP CONVERSION - 10/14/2014 10:43 AM [place] [address] Terrence Hernandez MD LAB_1 Performing Organization Address [facility] Phon e Number HP CONVERSION Complete Blood [...] - 10/14/2014 10:01 AM [place] [address] Terrence Hernandez MD LAB_1 Performing Organization Address [...] - 10/14/2014 10:33 AM CDT Performed at [facility], [address] [place] [address] Terrence Hernandez MD LAB_1 Performing Organization Address City/State/ZIP Code Phon e Number HP CONVERSION documented in this encounter Visit Diagnoses Diagnosis Chronic kidney disease, stage III (moder ate) (HRC) Chronic kidney disease, Stage III (moder ate) Vitamin D deficiency (HRC) Unspecified vitamin D deficiency documented in this encounter Care Teams Communication Signals Intelligence Relationship Specialty Start Date End Date Md Yepez MD PCP - General 12/01/12 10/11/15 [place] [address] documented as of this encounter
--- OUTSIDE RECORDS SUMMARY | 2022-06-28 08:59 | XMS_ITS | Encounter Summary ---
:1960 Author Organization [employer] Address [address], [place] [address] Care Team Providers Name Role Phone Hansa Lewis APRN, CNP Primary Care Provider [phone] Reason for Visit Reason Comments Refill Encounter Details Date Type Department Care Team Description 10/13/2012 Refill [facility]ty Center 3931 Newton Hernandez MD Refill Nephrology 3931 [facility] [address] [place] [address] [place], [place] [address] [phone] Social History Tobacco Use Types Packs/Day Years [...] on filedocumented in this encounter Care Teams [employer] Intern[employer] Relationship Specialty Start Date End Date Hansa Lewis APRN, CNP PCP - General 10/22/10 11/30/12 [address] [place] [place] [address] documented as of this encounter
--- OUTSIDE RECORDS SUMMARY | 2022-06-28 08:59 | XMS_ITS | Encounter Summary ---
:1960 Author Organization [employer] Address [address], [place] [address] Care Team Providers Name Role Phone Md THEE Yepez Primary Care Provider Reason for Visit Reason Comments Refill Encounter Details Date Type Department Care Team Description 10/15/2014 Refill [facility]ty [facility] 3931 Newton Hernandez MD Refill Nephrology 3931 [facility] [address] [place] [address] [place], [place] [address] [phone] Social History Tobacco Use Types Packs/Day Years Used Date Smoking Tobacco: Never Assessed Sex Assigned at Date Recorded Not on file documented as of this encounter Plan of Treatment Not on filedocumented as of this encounter Visit Diagnoses Not on filedocumented in this encounter Care Teams Radio Program Checker Relationship Specialty Start Date End Date Md Yepez MD PCP - General 12/01/12 10/11/15 [place], [place] [address] documented as of this encounter
--- OUTSIDE RECORDS SUMMARY | 2022-06-28 08:59 | XMS_ITS | Encounter Summary ---
:1960 Author Organization [employer] Address [address] [facility] [place] [address] Care Team Providers Name Role Phone Hansa Lewis APRYARED Ma Primary Care Provider [phone] Reason for Visit Reason Comments Medication Questions FATIGUE Encounter Details Date Type Department Care Team Description 12/03/2011 Telephone Specialty Center 3931 Newton Hernandez MD Medication Questions; Nephrology 3931 [facility] FATIGUE 3931 [facility] [address] [place] [phone] (Wo rk) Social History Tobacco Use Types [...] are unsure what to do. Veronica # [phone] or Pt cell # [phone] documented in this encounter Plan of Treatment Not on filedocumented as of this encounter Visit Diagnoses Diagnosis Proteinuria - Primary CKD (chronic kidney disease) stage 3, GF R 30-59 ml/min (HRC) Chronic kidney disease, Stage III (moder ate) documented in this encounter Care Teams Tagman Relationship Specialty Start Date End Date Hansa Lewis APRN, PLATE KEEPER PCP - General 10/22/10 11/30/12 [address] [address] [place] [address] documented as of this encounter
--- OUTSIDE RECORDS SUMMARY | 2022-06-28 08:59 | XMS_ITS | Encounter Summary ---
:1960 Author Organization [employer] Address [address] [place] [address] Care Team Providers Name Role Phone Md THEE Yepez Primary Care Provider Encounter Details Date Type Department Care Team Description 03/31/2014 Lab Visit [facility] Unspecified essential hypert ension; [address] [address]. Chronic kidney disease (CKD) , stage III (moderate) [place] [address] Social History Tobacco Use [...] kidney section. disease (CKD), stage III (moderate) ([facility]) RENAL FUNCTION PANEL Routine 03/31/2014 1:07 PM Unspecified R esults for this CDT essential procedure are i n hypertension (HR C) the results Chronic kidney section. disease (CKD), stage III (moderate) ([facility]) COMPLETE BLOOD Routine 03/31/2014 1:07 PM Unspecified Results for this COUNT-W/DIFF CDT essential procedure are i n hypertension (HR C) the results Chronic kidney section. disease (CKD), stage III (moderate) ([facility]) DIFFERENTIAL Routine 03/31/2014 1:07 PM Results f [...] - 03/31/2014 1:19 PM CDT Performed at [facility], [id number] [place] [address] Terrence Hernandez MD LAB_1 Performing Organization Address City/[facility] Phon e Number HP CONVERSION Complete Blood Count W/Diff (03/31/2014 1:07 PM CDT) P athologist Signature White Blood Cell 9.7 [...] - 03/31/2014 1:19 PM CDT Performed at [facility], [address] [place] [address] Terrence Hernandez MD LAB_1 Performing Organization Address [facility] Phon e Number HP CONVERSION (ABNORMAL) RENAL FUNCTION PANEL (03/31/2014 1:07 PM CDT) [facility] Method Time Signature Lab Glucose 106 [...] - 03/31/2014 6:12 PM CDT Performed at [facility], [address] [place] [address] Terrence Hernandez MD LAB_1 Performing Organization Address City/[facility] Phon e Number HP CONVERSION documented in this encounter Visit Diagnoses Diagnosis Unspecified essential hypertension (HRC) Unspecified essential hypertension Chronic kidney disease (CKD), stage III (moderate) (HRC) Chronic kidney disease, Stage III (moder ate) documented in this encounter Care Teams Nurse Examiner Relationship Specialty Start Date End Date Pnc, Md, MD PCP - General 12/01/12 10/11/15 [place], [place] [address] documented as of this encounter
--- OUTSIDE RECORDS SUMMARY | 2022-06-28 08:59 | XMS_ITS | Encounter Summary ---
:1960 Author Organization [employer] Address [address] [place] [address] Care Team Providers Name Role Phone Md THEE Yepez Primary Care Provider Encounter Details Date Type Department Care Team Description 07/02/2013 Lab Visit [place] [facility] Unspecified essential hypert ension; [address] [address]. Chronic kidney disease (CKD) , stage III (moderate) [place] [address] Social History Tobacco Use Types Packs/Day Years Used Date Smoking Tobacco: Never Assessed Sex Assigned at Date Recorded Not on file documented as of this encounter Plan of Treatment Not on filedocumented as of this encounter Procedures Procedure Name Priority Date/Time Associated Diagnosis Comme nts CREATININE / GFR Routine 07/02/2013 1:16 PM Unspecified essent ial Results for this DINKER hypertension (HR C) procedure are in Chronic kidney the results disease (CKD), stage section . III (moderate) (HRC) ELECTROLYTE PANEL Routine 07/02/2013 1:16 PM Unspecified essen tial Results for this DINKER hypertension (HR C) procedure are in Chronic kidney the results disease (CKD), stage section . III (moderate) (HRC) PHOSPHORUS Routine 07/02/2013 1:16 PM Unspecified essential Results for this DINKER hypertension (HR C) procedure are in Chronic kidney the results disease (CKD), stage section . III (moderate) (HRC) CALCIUM Routine 07/02/2013 1:16 PM Unspecified essential Results for this DINKER hypertension (HR C) procedure are in Chronic kidney the results disease (CKD), stage section . III (moderate) (HRC) BUN Routine 07/02/2013 1:16 PM Unspecified essential Results for this DINKER hypertension (HR C) procedure are in Chronic kidney the results disease (CKD), stage section . III (moderate) (HRC) documented in this encounter Results Phosphorus (07/02/2013 1:16 PM DINKER) athologist Signature Phosphorus 3.5 2.5 - 4.5 HP CONVERSION Serum mg/dL Specimen Anatomical Collection Method Collection Time Receive d Time (Source) Location / / Volume Laterality 07/02/2013 1:16 PM 3 2:37 DINKER PM DINKER Narrative HP CONVERSION - 07/02/2013 3:04 PM DINKER Performed at [facility], [address] [place] [address] Terrence Hernandez MD LAB_1 Performing Organization Address [facility] Phon e Number HP CONVERSION Calcium (07/02/2013 1:16 PM DINKER) athologist Signature Calcium 9.7 8.5 - 10.5 HP CONVERSION mg/dL Specimen Anatomical Collection Method Collection Time Receive d Time (Source) Location / / Volume Laterality 07/02/2013 1:16 PM 3 2:37 DINKER PM DINKER Narrative HP CONVERSION - 07/02/2013 3:04 PM DINKER Performed at [facility], [address] [place] [address] Terrence Hernandez MD LAB_1 Performing Organization Address [facility] Phon e Number HP CONVERSION BUN (07/02/2013 1:16 PM DINKER) athologist Signature Blood Urea 24 5 - 26 HP CONVERSION Nitrogen mg/dL Specimen Anatomical Collection Method Collection Time Receive d Time (Source) Location / / Volume Laterality 07/02/2013 1:16 PM 3 2:37 DINKER PM DINKER Narrative HP CONVERSION - 07/02/2013 3:04 PM DINKER Performed at [facility], [address] [place] [address] Terrence Hernandez MD LAB_1 Performing Organization Address [facility] Phon e Number HP CONVERSION (ABNORMAL) Creatinine / GFR (07/02/2013 1:16 PM DINKER) Analysis Performed At Patho logist Time Signature [...] Volume Laterality 07/02/2013 1:16 PM 3 2:37 DINKER PM DINKER Narrative HP CONVERSION - 07/02/2013 3:04 PM DINKER [place] [address] Terrence Hernandez MD LAB_1 Performing Organization Address City/[facility] Phon e Number HP CONVERSION (ABNORMAL) Electrolyte Panel (07/02/2013 1:16 PM DINKER) P athologist Signature Sodium 136 (L) 137 - 147 HP CONVERSION mEq/L Potassium 3.7 3.5 - 5.2 HP CONVERSION mEq/L Chloride 98 98 - 110 HP CONVERSION mEq/L Bicarbonate 31 23 - 33 HP CONVERSION mmol/L Specimen Anatomical Collection Method Collection Time Receive d Time (Source) Location / / Volume Laterality 07/02/2013 1:16 PM 3 2:37 DINKER PM DINKER Narrative HP CONVERSION - 07/02/2013 3:04 PM DINKER Performed at [facility], [address] [place] [address] Terrence Hernandez MD LAB_1 Performing Organization Address City/[facility] Phon e Number HP CONVERSION documented in this encounter Visit Diagnoses Diagnosis Unspecified essential hypertension (HRC) Unspecified essential hypertension Chronic kidney disease (CKD), stage III (moderate) (HRC) Chronic kidney disease, Stage III (moder ate) documented in this encounter Care Teams Parliamentary Counsel Relationship Specialty Start Date End Date Md Yepez MD PCP - General 12/01/12 10/11/15 [place] [address] documented as of this encounter
--- OUTSIDE RECORDS SUMMARY | 2022-06-28 08:59 | XMS_ITS | Encounter Summary ---
:1960 Author Organization [employer] Address [address] [place] [address] Care Team Providers Name Role Phone Md THEE Yepez Primary Care Provider Reason for Visit Reason Comments Chronic Kidney Disease Encounter Details Date Type Department Care Team Description 09/21/2013 Office Visit Specialty Center Terrence Hernandez MD Unspecified essential hypertension (Prim yadira Dx); 3931 Nephrology 3931 [facility] Chronic kidney disease (CKD) , stage III (moderate); 3931 [facility] [address] Microalbumin[address] [facility], [address] [place] [address] Social History Tobacco Use Types Packs/Day Years Used Date Smoking Tobacco: Never Assessed Sex Assigned at Date Recorded Not on file documented as of this encounter Last Filed Vital Signs Vital Sign Reading Time Taken Comments Blood Pressure 133/78 09/21/2013 3:17 PM PLASTERER FOREMAN Pulse 52 09/21/2013 3:17 PM PLASTERER FOREMAN Temperature - - Respiratory Rate - - Oxygen Saturation - - Inhaled Oxygen Concentration - - Weight 92.1 kg (203 lb) 09/21/2013 3:17 PM PLASTERER FOREMAN Height - - Body Mass Index 26.06 [...] gets time off. He is going to [place] next week where he will relax. ROS: [...] Return to Clinic in 12mo with labs. TERER FOREMAN documented in this encounter Plan of Treatment Not on filedocumented as of this encounter Visit Diagnoses Diagnosis Unspecified essential hypertension (HRC) - Primary Unspecified essential hypertension Chronic kidney disease (CKD), stage III (moderate) (HRC) Chronic kidney disease, Stage III (moder ate) Microalbuminuria Proteinuria documented in this encounter Care Teams Engineer Second Assistant Relationship Specialty Start Date End Date Md Yepez MD PCP - General 12/01/12 10/11/15 [place] [address] documented as of this encounter
--- OUTSIDE RECORDS SUMMARY | 2022-06-28 08:59 | XMS_ITS | Encounter Summary ---
:1960 Author Organization [employer] Address [address], [place] [address] Care Team Providers Name Role Phone Md THEE Yepez Primary Care Provider Reason for Visit Reason Comments Refill Encounter Details Date Type Department Care Team Description 10/09/2014 Refill Specialty Center 3931 Newton Hernandez MD Refill Nephrology 3931 [facility] [address] [place] [address] [place], [place] [address] [phone] Social History Tobacco Use Types Packs/Day Years Used Date Smoking Tobacco: Never Assessed Sex Assigned at Date Recorded Not on file documented as of this encounter Plan of Treatment Not on filedocumented as of this encounter Visit Diagnoses Not on filedocumented in this encounter Care Teams Financial Director Relationship Specialty Start Date End Date Md Yepez MD PCP - General 12/01/12 10/11/15 [place], [place] [address] documented as of this encounter
--- OUTSIDE RECORDS SUMMARY | 2022-06-28 08:59 | XMS_ITS | Encounter Summary ---
:1960 Author Organization [email or web address] Address [address] [place] [address] Care Team Providers Name Role Phone Jun Benz MD Primary Care Provider Reason for Visit Reason Comments Spasms Encounter Details Date Type Department Care Team Description 10/13/2015 Office Visit [facility] Jun Benz Cramp a nd spasm (Primary Dx); Medicine Screening for colon cancer; [address] [address]. [address] [facility] [address] [place] [address] [phone] Social History Tobacco Use Types Packs/Day Years [...] alone documented in this encounter Care Teams Riprap Worker Relationship Specialty Start Date End Date Jun Benz MD PCP - General 10/12/15 02/20/17 [address] [place] [address] documented as of this encounter
--- OUTSIDE RECORDS SUMMARY | 2022-06-28 08:59 | XMS_ITS | Encounter Summary ---
:1960 Author Organization [employer] Address [address] [place] [address] Care Team Providers Name Role Phone Md THEE Yepez Primary Care Provider Encounter Details Date Type Department Care Team Description 09/21/2013 Lab Visit [facility] 3931 Unspec ified essential hypertension; Outpatient Laborator y Chronic kidney disease (CKD) , stage III (moderate) 3931 [place], [place] [id number] Social History Tobacco Use Types Packs/Day Years Used Date Smoking Tobacco: Never Assessed Sex Assigned at Date Recorded Not on file documented as of this encounter Plan of Treatment Not on filedocumented as of this encounter Procedures Procedure Name Priority Date/Time Associated Diagnosis Comme nts RENAL FUNCTION Routine 09/21/2013 4:01 PM Unspecified essentia l Results for this PANEL MANAGER INTEGRITY hypertension (HR C) procedure are in Chronic kidney the results disease (CKD), stage section . III (moderate) (HRC) documented in this encounter Results (ABNORMAL) RENAL FUNCTION PANEL (09/21/2013 4:01 PM MANAGER INTEGRITY) [facility] Method Time Signature Lab Glucose 114 (H) [...] Volume Laterality 09/21/2013 4:01 PM 4 4:14 MANAGER INTEGRITY PM MANAGER INTEGRITY Terrence Hernandez MD LAB_1 Performing Organization Address City/State/ZIP Code Phon e Number HP CONVERSION documented in this encounter Visit Diagnoses Diagnosis Unspecified essential hypertension (HRC) Unspecified essential hypertension Chronic kidney disease (CKD), stage III (moderate) (HRC) Chronic kidney disease, Stage III (moder ate) documented in this encounter Care Teams Building Insulation Supervisor Relationship Specialty Start Date End Date Md Yepez MD PCP - General 12/01/12 10/11/15 [place] [address] documented as of this encounter
--- OUTSIDE RECORDS SUMMARY | 2022-06-28 08:59 | XMS_ITS | Encounter Summary ---
:1960 Author Organization [email or web address] Address [address] [place] [address] Care Team Providers Name Role Phone Jun Benz MD Primary Care Provider Reason for Visit Reason Comments Test Request Encounter Details Date Type Department Care Team Description 10/11/2015 Telephone [facility] 3931 Newton Hernandez MD Test Request Nephrology 3931 [facility] 3931 [facility] [address] [place] [address] [place], [place] [address] (Wo rk) Social History Tobacco Use Types Packs/Day Years Used Date Smoking Tobacco: Never Assessed Sex Assigned at Date Recorded Not on file documented as of this encounter Nursing Notes Cele Philip RN - 10/11/2015 10:50 AM CDT Pt. scheduled follow up in November, lab orders needed. Please enter. documented in this encounter Plan of Treatment Not on filedocumented as of this encounter Visit Diagnoses Diagnosis Chronic kidney disease (CKD), stage III (moderate) (HRC) - Primary Chronic kidney disease, Stage III (moder ate) documented in this encounter Care Teams Cvicu Nurse Relationship Specialty Start Date End Date Jun Benz MD PCP - General 10/12/15 02/20/17 [address] [place] [address] documented as of this encounter
--- OUTSIDE RECORDS SUMMARY | 2022-06-28 08:59 | XMS_ITS | Encounter Summary ---
:1960 Author Organization [facility] Address [address], [place] [address] Care Team Providers Name Role Phone Md THEE Yepez Primary Care Provider Reason for Visit Reason Comments Refill Encounter Details Date Type Department Care Team Description 10/10/2013 Refill [facility] 3931 Newton Hernandez MD Refill Nephrology 3931 [facility] [address] [place] [address] [place], [place] [address] [phone] Social History Tobacco Use Types Packs/Day Years Used Date Smoking Tobacco: Never Assessed Sex Assigned at Date Recorded Not on file documented as of this encounter Plan of Treatment Not on filedocumented as of this encounter Visit Diagnoses Not on filedocumented in this encounter Care Teams Errand Runner Relationship Specialty Start Date End Date Md Yepez MD PCP - General 12/01/12 10/11/15 [place], [place] [address] documented as of this encounter
--- OUTSIDE RECORDS SUMMARY | 2022-06-28 08:59 | XMS_ITS | Encounter Summary ---
:1960 Author Organization [employer] Address [address] [place] [address] Care Team Providers Name Role Phone Md THEE Yepez Primary Care Provider Encounter Details Date Type Department Care Team Description 05/28/2013 Immunization [facility] Need for influenza [address] [address]. vaccination (Primary Dx) [place] [address] Social History Tobacco Use Types Packs/Day Years Used Date Smoking Tobacco: Never Assessed Sex Assigned at Date Recorded Not on file documented as of this encounter Plan of Treatment Not on filedocumented as of this encounter Visit Diagnoses Diagnosis Need for influenza vaccination - Primary Need for prophylactic vaccination and in oculation against influenza documented in this encounter Care Teams Military Analyst Relationship Specialty Start Date End Date Md Yepez MD PCP - General 12/01/12 10/11/15 [place], [place] [address] documented as of this encounter
--- OUTSIDE RECORDS SUMMARY | 2022-06-28 08:59 | XMS_ITS | Encounter Summary ---
:1960 Author Organization [employer] Address [address] [place] [address] Care Team Providers Name Role Phone Lilialynnette Hansa NGUYỄN CNP Primary Care Provider [phone] Encounter Details Date Type Department Care Team Description 10/21/2012 Lab Visit [facility] Chronic kidney disease [address]. (CKD), stage III (moderate) [place] [address] Social History Tobacco Use [...] III (moderate) (HR) the res ults section. BUN Routine 10/21/2012 [...] - 10/21/2012 8:33 PM CDT Performed at [facility], [address] [place] [address] Terrence Hernandez MD LAB_1 [address]forming [address] [facility] Phon e Number HP CONVERSION BUN (10/21/2012 6:26 PM CDT) athologist Signature Blood Urea 22 5 - 26 HP CONVERSION Nitrogen mg/dL Specimen Anatomical Collection Method Collection Time Receive d Time (Source) Location / / Volume Laterality 10/21/2012 6:26 PM 3 8:13 CDT PM CDT Narrative HP CONVERSION - 10/21/2012 8:33 PM CDT Performed at [facility], [address] [place] [address] Terrence Hernandez MD LAB_1 Performing Organization Address City/[facility] Phon e Number HP CONVERSION documented in this encounter Visit Diagnoses Diagnosis Chronic kidney disease (CKD), stage III (moderate) (HRC) Chronic kidney disease, Stage III (moder ate) documented in this encounter Care Teams Psychotherapist Relationship Specialty Start Date End Date Hansa Lewis APRN, NURSE PRACTITIONER HOSPITALIST PCP - General 10/22/10 11/30/[address] [place] [address] [place] [address] documented as of this encounter
--- OUTSIDE RECORDS SUMMARY | 2022-06-28 08:59 | XMS_ITS | Encounter Summary ---
:1960 Author Organization [employer] Address [address] [place] [address] Care Team Providers Name Role Phone Hansa Lewis YARED NGUYỄN Primary Care Provider [phone] Reason for Visit Reason Comments Refill Encounter Details Date Type Department Care Team Description 10/30/2012 Refill [facility] 3931 Newton Hernandez MD Refill Nephrology 3931 [facility] [address] [place] [address] [place], [place] [address] [phone] Social History Tobacco Use Types Packs/Day Years [...] on filedocumented in this encounter Care Teams Brancher Relationship Specialty Start Date End Date Hansa Lewis, DELMA, AIR CONDITIONING UNIT TESTER PCP - General 10/22/10 11/30/12 [address] [address] [place] [id number] documented as of this encounter
--- OUTSIDE RECORDS SUMMARY | 2022-06-28 08:59 | XMS_ITS | Encounter Summary ---
:1960 Author Organization [employer] Address [address] [place] [address] Care Team Providers Name Role Phone Jun Benz MD Primary Care Provider Reason for Visit Reason Comments Refill Encounter Details Date Type Department Care Team Description 10/06/2015 Refill [facility] 3931 Newton Hernandez MD Refill Nephrology 3931 [facility] [address] [place] [address] [place] [address] [phone] Social History Tobacco Use Types Packs/Day Years [...] on filedocumented in this encounter Care Teams Reaming Machine Operator Relationship Specialty Start Date End Date Jun Benz MD PCP - General 10/12/15 02/20/17 [address] [place] [address] documented as of this encounter
--- OUTSIDE RECORDS SUMMARY | 2022-06-28 08:59 | XMS_ITS | Encounter Summary ---
:1960 Author Organization [employer] Address [address] [place] [address] Care Team Providers Name Role Phone Md THEE Yepez Primary Care Provider Reason for Visit Reason Comments Chronic Kidney Disease Encounter Details Date Type Department Care Team Description 05/13/2013 Office Visit [facility] Terrence Hernandez MD Unspecified essential hypertension (Prim yadira Dx); 3931 Nephrology [address] [place] Chronic kidney disease (CKD) , stage III (moderate); 3931 [facility] [address] [facility] [phone] (Wo rk) Social History Tobacco Use Types [...] facility documented in this encounter Care Teams Auto Claim Representative Relationship Specialty Start Date End Date Md Yepez MD PCP - General 12/01/12 10/11/15 [place] [address] documented as of this encounter
--- OUTSIDE RECORDS SUMMARY | 2022-06-28 08:59 | XMS_ITS | Encounter Summary ---
:1960 Author Organization [employer] Address [address] [place] [address] Care Team Providers Name Role Phone Md THEE Yepez Primary Care Provider Encounter Details Date Type Department Care Team Description 06/14/2015 Immunization [facility] Need for influenza [address] [address]. vaccination (Primary Dx) [place] [address] Social History Tobacco Use Types Packs/Day Years Used Date Smoking Tobacco: Never Assessed Sex Assigned at Date Recorded Not on file documented as of this encounter Plan of Treatment Not on filedocumented as of this encounter Visit Diagnoses Diagnosis Need for influenza vaccination - Primary Need for prophylactic vaccination and in oculation against influenza documented in this encounter Care Teams Corrosion Technician Relationship Specialty Start Date End Date Md Yepez MD PCP - General 12/01/12 10/11/15 [place], [place] [address] documented as of this encounter
--- OUTSIDE RECORDS SUMMARY | 2022-06-28 08:59 | XMS_ITS | Encounter Summary ---
:1960 Author Organization [employer] Address [address] [place] [address] Care Team Providers Name Role Phone Hansa Lewis APRN, CNP Primary Care Provider [phone] Encounter Details Date Type Department Care Team Description 11/01/2011 Lab Visit [facility] Unspecified essential hypert ension; [address] [address] Chronic kidney disease (CKD) , stage III (moderate); [place] [address] Esophageal reflux [phone] Social History Tobacco Use Types Packs/Day Years [...] III (moderate) (HRC) the res ults section. VITAMIN D Routine [...] . III (moderate) (HRC) ELECTROLYTE PANEL Routine 11/01/2011 1:15 PM Unspecified [...] disease (CKD), stage section . III (moderate) ([facility]) documented in this encounter Results Microalb/Creat Ratio [...] Terrence Hernandez MD LAB_1 Performing Organization Address City/[facility] Code Phon e Number HP CONVERSION Calcium (11/01/2011 1:15 PM CDT) P athologist Signature Calcium 9.7 8.5 - 10.5 HP CONVERSION mg/dL Specimen Anatomical Collection Method Collection Time Receive d Time (Source) Location / / Volume Laterality 11/01/2011 1:15 PM 2 1:15 CDT PM CDT Narrative HP CONVERSION - 11/01/2011 1:49 PM CDT Performed at [facility], [address] [place], [place] [address] Terrence Hernandez MD LAB_1 Performing Organization Address City/State/ZIP Code Phon e Number HP CONVERSION Phosphorus (11/01/2011 1:15 PM CDT) athologist [facility] Phosphorus 3.3 2.5 - 4.5 HP CONVERSION Serum mg/dL Specimen Anatomical Collection Method Collection Time Receive d Time (Source) Location / / Volume Laterality 11/01/2011 1:15 PM 2 1:15 CDT PM CDT Narrative HP CONVERSION - 11/01/2011 1:49 PM CDT Performed at [facility], [address] [place] [address] Terrence Hernandez MD LAB_1 Performing Organization Address City/[facility] Phon e Number HP CONVERSION Vitamin D 25-Hydroxy, Total (11/01/2011 1:15 PM CDT) athologist [facility] Vitamin D 25 Oh 26 20 - 80 HP CONVERSION ng/mL Comment: Deficiency = <20 Adequate ??= 20-29 Preferred = 30-50 Uncertain safety = 51-80 High = >80 Specimen Anatomical Collection Method Collection Time Receive d Time (Source) Location / / Volume Laterality 11/01/2011 1:15 PM 2 4:02 CDT PM CDT Terrence Hernandez MD LAB_1 Performing Organization Address City/[facility] Phon e Number HP CONVERSION Magnesium (11/01/2011 1:15 PM CDT) athologist [facility] Magnesium 2.2 1.5 - 2.4 HP CONVERSION mg/dL Specimen Anatomical Collection Method Collection Time Receive d Time (Source) Location / / Volume Laterality 11/01/2011 1:15 PM 2 1:15 CDT PM CDT Narrative HP CONVERSION - 11/01/2011 1:49 PM CDT Performed at [facility], [address] [place] [address] Terrence Hernandez MD LAB_1 Performing Organization Address City/[facility] Phon e Number HP CONVERSION Electrolyte Panel (11/01/2011 1:15 PM CDT) athologist [facility] Sodium 138 137 - 147 HP CONVERSION [...] - 11/01/2011 1:49 PM CDT Performed at [facility], [address] [place] [address] Terrence Hernandez MD LAB_1 Performing Organization Address [facility] Phon e Number HP CONVERSION [...] - 11/01/2011 1:49 PM CDT Performed at [facility], [address] [place] [address] Terrence Hernandez MD LAB_1 Performing Organization Address [facility] Phon e Number HP CONVERSION BUN (11/01/2011 1:15 PM CDT) athologist Signature Blood Urea 23 5 - 26 HP CONVERSION Nitrogen mg/dL Specimen Anatomical Collection Method Collection Time Receive d Time (Source) Location / / Volume Laterality 11/01/2011 1:15 PM 2 1:15 CDT PM CDT Narrative HP CONVERSION - 11/01/2011 1:49 PM CDT Performed at [facility], [address] [place] [address] Terrence Hernandez MD LAB_1 Performing Organization Address [facility] Phon e Number HP CONVERSION documented in this encounter Visit Diagnoses Diagnosis Unspecified essential hypertension (HRC) Unspecified essential hypertension Chronic kidney disease (CKD), stage III (moderate) (HRC) Chronic kidney disease, Stage III (moder ate) Esophageal reflux documented in this encounter Care Teams Stitcher Tape Controlled Machine Relationship Specialty Start Date End Date Hansa Lewis APRN, FARM OPERATIONS TECHNICAL DIRECTOR PCP - General 10/22/10 11/30/12 [address] [address] [place] [id number] documented as of this encounter
--- OUTSIDE RECORDS SUMMARY | 2022-06-28 08:59 | XMS_ITS | Encounter Summary ---
:1960 Author Organization [email or web address] Address [address] [place] [address] Care Team Providers Name Role Phone Hansa Lewis YARED NGUYỄN Primary Care Provider [phone] Reason for Visit Reason Comments Chronic Kidney Disease HYPERTENSION Encounter Details Date Type Department Care Team Description 10/30/2012 Office Visit [facility] 3931 Newton Hernandez MD Unspecified essential hypertension; Nephrology 3931 [facility] Chronic kidney disease (CKD) , stage III (moderate); 3931 [facility] [address] Other [place] [phone] (Wo rk) Social History Tobacco Use Types [...] Body Mass Index 25.77 07/02/2011 1:44 PM CIRCUS TRAINER documented in this encounter Patient Instructions Patient InstructionsTeTerrence hercules MD - 10/30/2012 2:13 PM CDT 1. [...] fatigue documented in this encounter Care Teams Typesetting Machine Operator/Tender Relationship Specialty Start Date End Date Hansa Lewis, DELMA, INTERNAL AFFAIRS INVESTIGATOR PCP - General 10/22/10 11/30/12 [address] [place] [id number] documented as of this encounter
--- OUTSIDE RECORDS SUMMARY | 2022-06-28 08:59 | XMS_ITS | Encounter Summary ---
:1960 Author Organization [employer] Address [address] [place] [address] Care Team Providers Name Role Phone Jun Benz MD Primary Care Provider Encounter Details Date Type Department Care Team Description 10/13/2015 Lab Visit [facility] Cramp and spasm [address] [place] [address] Social History Tobacco Use Types Packs/Day Years Used Date Smoking Tobacco: Never Assessed Sex Assigned at Date Recorded Not on file documented as of this encounter Progress Notes Jun Benz MD - 10/14/2015 9:17 AM CDT Quick Note: Mychart TRIMMER documented in this encounter Miscellaneous Notes Miscellaneous - 08/29/2016 8:22 PM CSTNotes Recorded by Jun Benz MD on 10/14/2015 at 9:17 AMMychart TRIMMER Miscellaneous - 08/29/2016 8:22 PM CSTNotes Recorded by Jun Benz MD on 10/14/2015 at 9:17 AMMychart TRIMMER Miscellclotilde - 08/29/2016 8:22 PM CSTNotes Recorded by Jun Benz MD on 10/14/2015 at 9:17 AMMychart TRIMMER Miscellaneous - 08/29/2016 8:22 PM CSTNotes Recorded by Jun Benz MD on 10/14/2015 at 9:17 AMMychart TRIMMER Miscellaneous - 08/29/2016 8:22 PM CSTNotes Recorded by Jun Benz MD on 10/14/2015 at 9:17 AMMychart TRIMMER Miscellaneous - 08/29/2016 8:22 PM CSTNotes Recorded by Jun Benz MD on 10/14/2015 at 9:17 AMMychart TRIMMER Miscellaneous - 08/29/2016 8:22 PM CSTNotes Recorded by Jun Benz MD on 10/14/2015 at 9:17 AMMychart TRIMMER Miscellaneous - 08/29/2016 8:22 PM CSTNotes Recorded by Jun Benz MD on 10/14/2015 at 9:17 AMMychart TRIMMER documented in this encounter Plan of Treatment [...] - 10/13/2015 9:38 PM CDT Performed at [facility] [address] [place] [address] CLIA number [id number] Transcriptions 08/29/2016 8:22 PM CSTNotes Recorded by [...] - 10/13/2015 3:55 PM CDT Performed at [facility] [id number] [place] [address] CLIA number [id number] Transcriptions 08/29/2016 8:22 PM CSTNotes Recorded by Jun Benz MD on 10/14/2015 at 9:17 AMMychart Jun Benz MD LAB_1 Performing Organization Address City/State/ZIP Code Phon e Number HP CONVERSION (ABNORMAL) TSH AND FREE T4 (FRT4 IF TSH ABNORM) (10/13/2015 3:53 PM CDT) [facility] Method Time Signature Thyroid 4.90 (H) 0.20 - HP CONVERSION Stimulating 4.50 Hormone uIU/mL Specimen Anatomical Collection Method Collection Time Receive d Time (Source) Location / / Volume Laterality 10/13/2015 3:53 PM 6 7:33 CDT PM CDT Narrative HP CONVERSION - 10/13/2015 8:44 PM CDT Performed at [address] [address] CLIA number [id number] Transcriptions 08/29/2016 8:22 PM CSTNotes Recorded by Jun Benz MD on 10/14/2015 at 9:17 AMMychart Jun Benz MD LAB_1 Performing Organization Address City/State/ZIP Code Phon e Number HP CONVERSION (ABNORMAL) Liver Panel(Hepatic Function Panel) (10/13/2015 3:53 PM CDT) [facility] Method Time Signature Alk Phos 76 40 [...] - 10/13/2015 7:20 PM CDT Performed at [facility] [place], [address] [place] [address] CLIA number [id number] Transcriptions 08/29/2016 8:22 PM CSTNotes Recorded by Jun Benz MD on 10/14/2015 at 9:17 AMMychart Jun Benz MD LAB_1 Performing Organization Address City/State/ZIP Code Phon e Number HP CONVERSION CK, Total (10/13/2015 3:53 PM CDT) P athologist Signature Creatine Kinase 34 30 - 200 HP CONVERSION U/L Specimen Anatomical Collection Method Collection Time Receive d Time (Source) Location / / Volume Laterality 10/13/2015 3:53 PM 6 6:06 CDT PM CDT Narrative HP CONVERSION - 10/13/2015 7:20 PM CDT Performed at [facility], [place], [address] [place] [address] CLIA number [id number] Transcriptions 08/29/2016 8:22 PM CSTNotes Recorded by Jnu Benz MD on 10/14/2015 at 9:17 AMMychart Jun Benz MD LAB_1 Performing Organization Address City/[facility] Phon e Number HP CONVERSION ESR (10/13/2015 3:53 PM CDT) [facility] gist Method Time Signature Sedimentation Rate 7 0 - 15 HP CONVERSI ON mm/hr Specimen Anatomical Collection Method Collection Time Receive d Time (Source) Location / / Volume Laterality 10/13/2015 3:53 PM 6 3:52 CDT PM CDT Narrative HP CONVERSION - 10/13/2015 4:30 PM CDT Performed at [facility], [place], [address] [place] [address] CLIA number [id number] Transcriptions 08/29/2016 8:22 PM CSTNotes Recorded by Jun Bezn MD on 10/14/2015 at 9:17 AMMychart Jun Benz MD LAB_1 Performing Organization Address City/[facility] Phon e Number HP CONVERSION Complete Blood Count W/Diff (10/13/2015 3:53 PM CDT) P athologist Signature White Blood Cell 8.6 3.8 [...] - 10/13/2015 3:55 PM CDT Performed at [facility], [place], [address] [place] [address] CLIA number [id number] Transcriptions 08/29/2016 8:22 PM CSTNotes Recorded by Jun Benz MD on 10/14/2015 at 9:17 AMMychart Jun Benz MD LAB_1 Performing Organization Address City/State/ZIP Code Phon e Number HP CONVERSION (ABNORMAL) Basic Metabolic Panel (10/13/2015 3:53 PM CDT) [facility] Method Time Signature Creatinine Serum 1.30 (H) [...] - 10/13/2015 7:20 PM CDT Performed at [facility], [place], [address] [facility], [place] [address] CLIA number [id number] Transcriptions 08/29/2016 8:22 PM CSTNotes Recorded by Jun Benz MD on 10/14/2015 at 9:17 AMMychart Jun Benz MD LAB_1 Performing Organization Address City/State/ZIP Code Phon e Number HP CONVERSION documented in this encounter Visit Diagnoses Diagnosis Cramp and spasm documented in this encounter Care Teams Mother'S Helper Relationship Specialty Start Date End Date Jun Benz MD PCP - General 10/12/15 02/20/17 [address] [place] [address] documented as of this encounter
--- OUTSIDE RECORDS SUMMARY | 2022-06-28 08:59 | XMS_ITS | Encounter Summary ---
:1960 Author Organization [facility] Address [address] [place] [address] Care Team Providers Name Role Phone Md THEE Yepez Primary Care Provider Encounter Details Date Type Department Care Team Description 05/28/2013 Lab Visit [facility] Unspecified essential hypert ension; [address] Chronic kidney disease (CKD) , stage III (moderate) [place] [address] Social History Tobacco Use Types Packs/Day Years Used Date Smoking Tobacco: Never Assessed Sex Assigned at Date Recorded Not on file documented as of this encounter Plan of Treatment Not on filedocumented as of this encounter Procedures Procedure Name Priority Date/Time Associated Diagnosis Comme nts ALBUMIN/CREAT RATIO Routine 05/28/2013 4:01 PM Unspecified ess ential Results for this TILE HELPER hypertension (HR C) procedure are in Chronic kidney the results disease (CKD), stage section . III (moderate) ([facility]) CREATININE / GFR Routine 05/28/2013 3:41 PM Unspecified essent ial Results for this TILE HELPER hypertension (HR C) procedure are in Chronic kidney the results disease (CKD), stage section . III (moderate) ([facility]) ELECTROLYTE PANEL Routine 05/28/2013 3:41 PM Unspecified essen tial Results for this TILE HELPER hypertension (HR C) procedure are in Chronic kidney the results disease (CKD), stage section . III (moderate) ([facility]) CALCIUM Routine 05/28/2013 3:41 PM Unspecified essential Results for this TILE HELPER hypertension (HR C) procedure are in Chronic kidney the results disease (CKD), stage section . III (moderate) ([facility]) BUN Routine 05/28/2013 3:41 PM Unspecified essential Results for this TILE HELPER hypertension (HR C) procedure are in Chronic kidney the results disease (CKD), stage section . III (moderate) ([facility]) documented in this encounter Results (ABNORMAL) Microalb/Creat Ratio (05/28/2013 4:01 PM TILE HELPER) Patholo gist Method Time Signature Microalbumin 58.0 mg/L HP CONVERSION Urine U Creat Random 138 mg/dL HP CONVERSION Microalbumin/Cre 42.0 (H) 0.0 - HP CONVERSION atinine Ratio 30.0 Specimen Anatomical Collection Method Collection Time Receive d Time (Source) Location / / Volume Laterality 05/28/2013 4:01 PM 3 9:03 TILE HELPER PM TILE HELPER Terrence Hernandez MD LAB_1 Performing Organization Address [facility] Phon e Number HP CONVERSION Calcium (05/28/2013 3:41 PM TILE HELPER) athologist Signature Calcium 10.3 8.5 - 10.5 HP CONVERSION mg/dL Specimen Anatomical Collection Method Collection Time Receive d Time (Source) Location / / Volume Laterality 05/28/2013 3:41 PM 3 4:40 TILE HELPER PM TILE HELPER Narrative HP CONVERSION - 05/28/2013 5:00 PM TILE HELPER [place] [address] Terrence Hernandez MD LAB_1 Performing Organization Address [facility] Phon e Number HP CONVERSION (ABNORMAL) BUN (05/28/2013 3:41 PM TILE HELPER) athologist Signature Blood Urea 29 (H) 5 - 26 HP CONVERSION Nitrogen mg/dL Specimen Anatomical Collection Method Collection Time Receive d Time (Source) Location / / Volume Laterality 05/28/2013 3:41 PM 3 4:40 TILE HELPER PM TILE HELPER Narrative HP CONVERSION - 05/28/2013 5:00 PM TILE HELPER Performed at [facility], [address] [place] [address] Terrence Hernandez MD LAB_1 Performing Organization Address [facility]/ZIP Code Phon e Number HP CONVERSION (ABNORMAL) Creatinine / GFR (05/28/2013 3:41 PM TILE HELPER) Analysis Performed At Patho logist Time Signature [...] Volume Laterality 05/28/2013 3:41 PM 3 4:40 TILE HELPER PM TILE HELPER Narrative HP CONVERSION - 05/28/2013 5:00 PM TILE HELPER [place] [address] Terrence Hernandez MD LAB_1 Performing Organization Address City/[facility] Phon e Number HP CONVERSION (ABNORMAL) Electrolyte Panel (05/28/2013 3:41 PM TILE HELPER) P athologist Signature Sodium 140 137 - 147 HP CONVERSION mEq/L Potassium 3.3 (L) 3.5 - 5.2 HP CONVERSION mEq/L Chloride 99 98 - 110 HP CONVERSION mEq/L Bicarbonate 31 23 - 33 HP CONVERSION mmol/L Specimen Anatomical Collection Method Collection Time Receive d Time (Source) Location / / Volume Laterality 05/28/2013 3:41 PM 3 4:40 TILE HELPER PM TILE HELPER Narrative HP CONVERSION - 05/28/2013 5:00 PM TILE HELPER Performed at [facility], [address] [place] [address] Terrence Hernandez MD LAB_1 Performing Organization Address City/[facility] Phon e Number HP CONVERSION documented in this encounter Visit Diagnoses Diagnosis Unspecified essential hypertension ([facility]) Unspecified essential hypertension Chronic kidney disease (CKD), stage III (moderate) ([facility]) Chronic kidney disease, Stage III (moder ate) documented in this encounter Care Teams Paper Feeder Relationship Specialty Start Date End Date Md Yepez MD PCP - General 12/01/12 10/11/15 [place] [address] documented as of this encounter
--- OUTSIDE RECORDS SUMMARY | 2022-06-28 09:00 | XMS_ITS | Encounter Summary ---
:1960 Author Organization [facility] Address [address], [place] [address] Care Team Providers Name Role Phone Hansa Lewis APRN, CNP Primary Care Provider [phone] Reason for Visit Reason Comments Other Encounter Details Date Type Department Care Team Description 08/14/2010 Telephone [facility] 393 1 Nephrology Shankar Geronimo Other [address] [place] [address] Social History Tobacco Use Types Packs/Day Years [...] Created on 14Aug2010 4:29pm by SHANKAR BULL NT SIDE LASTER documented in this encounter Plan of Treatment Not on filedocumented as of this encounter Visit Diagnoses Not on filedocumented in this encounter Care Teams Storyboard Artist Relationship Specialty Start Date End Date Hansa Lewis APRN, CNP PCP - General 10/22/10 11/30/12 [address] [place] [address] [place] [address] documented as of this encounter
--- OUTSIDE RECORDS SUMMARY | 2022-06-28 09:00 | XMS_ITS | Encounter Summary ---
:1960 Author Organization [facility] Address [address] [address] Care Team Providers Name Role Phone Hansa Lewis YARED NGUYỄN Primary Care Provider [phone] Encounter Details Date Type Department Care Team Description 09/13/2009 Office Visit [facility] [address] Newton Hernandez MD Nephrology [address] [facility] [address] [facility] [address] [place] [address] [id number] [phone] Social History Tobacco Use Types Packs/Day Years Used Date Smoking Tobacco: Never Assessed Sex Assigned at Date Recorded Not on file documented as of this encounter Last Filed Vital Signs Vital Sign Reading Time Taken Comments Blood Pressure 132/78 09/13/2009 3:06 PM QUALITY CONTROL SPECIALIST Pulse 60 09/13/2009 3:06 PM QUALITY CONTROL SPECIALIST Temperature - - Respiratory Rate - - Oxygen Saturation - - Inhaled Oxygen Concentration - - Weight 83.9 kg (184 lb 15.8 oz) 09/13/2009 3:06 PM QUALITY CONTROL SPECIALIST C: 83.9kg Height - - Body Mass Index 24.74 07/26/2008 2:24 PM QUALITY CONTROL SPECIALIST documented in this encounter Progress Notes Terrence Hernandez MD - 09/13/2009 12:01 AM CST Progress Notes signed by Terrence Hernandez MD at 09/19/09 0744 Author: Terrence Hernandez MD Service: (none) Author Type: Physician Filed: 11/11/102023 Note Time: 09/13/09 0001 Status: Signed Physician Coding Specialist: Terrence Hernandez MD (Physician) NAME: JOSH MOSLEY MR#: [id number] ACCT: [id number] VISIT: [id number] DICTATING CLINICIAN: Terrence Hernandez MD CONFIRM #: [id number] LOC: 236 CLINIC PROGRESS NOTE DATE OF [...] therapy. PLAN: See Assessment. CC: CRISTINA Steele AET:[id number] C: 09/14/09 11:14 CONFIRM #: [id number] ITY CONTROL SPECIALIST documented in this encounter Plan of Treatment Not on filedocumented as of this encounter Visit Diagnoses Not on filedocumented in this encounter Care Teams Regulatory Attorney Relationship Specialty Start Date End Date Hansa Lewis APRN, BPM DEVELOPER PCP - General 10/22/10 11/30/12 [address] [address] [place] [address] documented as of this encounter
--- OUTSIDE RECORDS SUMMARY | 2022-06-28 09:00 | XMS_ITS | Encounter Summary ---
:1960 Author Organization [facility] Address [address] [address] Care Team Providers Name Role Phone Hansa Lewis APRN, CNP Primary Care Provider [phone] Reason for Visit Reason Comments Refill Encounter Details Date Type Department Care Team Description 10/10/2011 Refill Specialty Center [address] Newton Hernandez MD Refill Nephrology 39[address] [facility] [address] [place] [address] [place], [place] [address] [phone] Social History Tobacco Use Types Packs/Day Years [...] on filedocumented in this encounter Care Teams Emergency Medicine Nurse Practitioner Relationship Specialty Start Date End Date Hansa Lewis APRN, CNP PCP - General 10/22/10 11/30/12 [address] [place] [address] [place] [address] documented as of this encounter
--- OUTSIDE RECORDS SUMMARY | 2022-06-28 09:00 | XMS_ITS | Encounter Summary ---
:1960 Author Organization [facility] Address [address], [place] [address] Care Team Providers Name Role Phone Hansa Lewis APRN, CNP Primary Care Provider [phone] Reason for Visit Reason Comments LEG PAIN Encounter Details Date Type Department Care Team Description 06/26/2011 Office Visit [place] Internal Hansa Lewis Leg pa in (Primary Dx); Medicine YARED NGUYỄN Varicose veins [address] [place] [address] [place], [place] [phone] [address] (Wo rk) Social History Tobacco Use Types Packs/Day Years Used Date Smoking Tobacco: Never Assessed Sex Assigned at Date Recorded Not on file documented as of this encounter Last Filed Vital Signs Vital Sign Reading Time Taken Comments Blood Pressure 116/68 06/26/2011 8:08 AM SURGICAL ENDOSCOPIST Pulse 60 06/26/2011 8:08 AM SURGICAL ENDOSCOPIST Temperature 36.6 ??C (97.9 ??F) 06/26/2011 8:08 AM SURGICAL ENDOSCOPIST Respiratory Rate - - Oxygen Saturation - - Inhaled Oxygen Concentration - - Weight 82.1 kg (181 lb) 06/26/2011 8:08 AM SURGICAL ENDOSCOPIST Height - - Body Mass Index 24.21 07/26/2008 2:24 PM SURGICAL ENDOSCOPIST documented in this encounter Patient Instructions Patient InstructionsSyKimber webb - 06/26/2011 8:46 AM CST Call [phone] for Vascular Surgery. Thank you for enrolling in [email or web address]. Please follow the instructions below to securely access your online medical record. [email or web address] allows you to send messages to your doctor, view your test results, renewyour prescriptions, schedule appointments, and more. How Do I Sign Up? 1. In your Internet browser, go to: [email or web address] 2. Click on the Sign Up Now link in the Sign In box. You will see the New Member Sign Up page. 3. Enter your [email or web address] Access Code exactly as it appears below. You will not need to use this code after you???ve completed the sign-up process. If you do not sign up before the expiration date, you must request a new code. [email or web address] Access Code: [email or web address] Expires: 07/26/11 08:46 AM 4. Enter your Social Security Number (xxx-[id number]) and Date of (mm/dd/yyyy) as indicated and click Submit. You will be taken to the next sign- up page. 5. Create a [email or web address] ID. This will be your [email or web address] login ID and cannot be changed, so think of one that is secure and easy to remember. 6. Create a [email or web address] password. You can change your password at any time. 7. Enter your Password Reset Question and Answer. This can be used at a later time if you forget your password. 8. Enter your e-mail address. You will receive e-mail notification when new information is availablein [email or web address]. 9. Click Sign Up. You can now view your medical record. Additional Information If you have questions, you can call [phone] to talk to our [email or web address] staff. Remember, [email or web address] is NOT to be used for urgent needs. For medical emergencies, dial 911. ICAL ENDOSCOPIST documented in this encounter Progress Notes Kimber Royal - 06/26/2011 3:20 PM CST left message with his that US negative for clot. ICAL ENDOSCOPIST Hansa Lewis APRN, CNP - 06/26/2011 3:11 PM SURGICAL ENDOSCOPIST Quick Note: please call PM to tell him that the Dopple us is negative for clot in rt leg ICAL ENDOSCOPIST Hansa Lewis APRN, CNP - 06/26/2011 8:37 AM CST Progress Notes signed by CRISTINA Steele at 06/27/111457 Author: CRISTINA Steele Service: (none) Author Type: (none) Filed: 06/27/111457 Note Time: 06/26/11836 Status: Signed Putty Patcher: CRISTINA Steele (Nurse Practitioner) NAME: JOSH MOSLEY MR#: [id number] CSN: [id number] AUTHENTICATING CLINICIAN: CRISTINA Steele CONFIRM #: [id number] LOC: 506 CLINIC PROGRESS NOTE DATE OF [...] with this plan. LAE:MEDQ C: CONFIRM #: [id number] ICAL ENDOSCOPIST documented in this encounter Miscellaneous Notes Miscellaneous - 08/31/2016 9:58 PM CSTNotes Recorded by CRISTINA Steele on 06/26/2011 at 3:11 PMplease call PM to tell him that the Dopple us is negative for clot in rt leg ICAL ENDOSCOPIST documented in this encounter Plan of Treatment Not on filedocumented as of this encounter Procedures Procedure Name Priority Date/Time Associated Diagnosis Comme nts US VENOUS RIGHT Routine 06/26/2011 11:32 AM Leg pain Resul ts for this LOWER EXTREM SURGICAL ENDOSCOPIST procedure are i n DOPPLER the results section. documented in this encounter Results US Lower Extremity Rt Venous Doppler (06/26/2011 11:32 AM SURGICAL ENDOSCOPIST) Anatomical Region Laterality Modality Vascular, Leg Other Specimen (Source) Anatomical Location Collection Method / Collectio n Time Received Time / Laterality Volume Impressions 06/26/2011 12:06 PM SURGICAL ENDOSCOPIST IMPRESSION: No deep venous thrombosis detected in the right lower extremity. Narrative 06/26/2011 12:06 PM SURGICAL ENDOSCOPIST COMPARISON: None. TECHNIQUE: The deep veins of [...] clot in rt leg Hansa Lewis APRN, YARED RAD US documented in this encounter Visit Diagnoses Diagnosis Leg pain - Primary Pain in limb Varicose veins Asymptomatic varicose veins documented in this encounter Care Teams Band Presser Relationship Specialty Start Date End Date Hansa Lewis APRN, CHISELER HEAD PCP - General 10/22/10 11/30/12 [address] [address] [place] [address] documented as of this encounter
--- OUTSIDE RECORDS SUMMARY | 2022-06-28 09:00 | XMS_ITS | Encounter Summary ---
:1960 Author Organization [email or web address] Address [address] [address] Care Team Providers Name Role Phone Hansa Lewis APRN, CNP Primary Care Provider [phone] Reason for Visit Reason Comments Other Encounter Details Date Type Department Care Team Description 02/27/2010 Telephone Specialty Center 393 1 Nephrology Center, Message Other [address] [place] [address] Social History Tobacco Use Types Packs/Day Years Used Date Smoking Tobacco: Never Assessed Sex Assigned at Date Recorded Not on file documented as of this encounter Progress Notes Center, Message - 02/27/2010 2:53 PM CDT Phone Note filed by Kanjoya at 11/11/10 9310 Author: Kanjoya Service: (none) Author Type: (none) Filed: 11/11/10 9787 Note Time: 02/27/103 Status: Signed Supervisor Hanging And Trimming: Kanjoya (Resource) PRESCRIPTION REFILL Please provide enough refills to last until patient's next visit. Comment:-lv 09/13/09 no future appt Pharmacy Seq #:-[phone] [facility]ax[facility] [phone] or City:-[facility] Clinician Name:-David Drug Name/Strength:-Prilosec 20mg cap Sig: Dose/Route/Freq:-take one cap once daily Quantity & Last Fill:-#30 01/27/10 *ECODE~PNRF Created on 27Feb2010 2:53pm by JULIO CÉSAR LEACH On 27Feb2010 3:48pm REYNOLD JOHNSON wrote: Qty 30 with 0 refills faxed into above pharmacy per standing order. Acknowledged by EVA HERRING on 9:18am S ORDER CLERK documented in this encounter Plan of Treatment Not on filedocumented as of this encounter Visit Diagnoses Not on filedocumented in this encounter Care Teams Shoddy Mill Worker Relationship Specialty Start Date End Date Hansa Lewis APRN, PEDIATRIC DENTAL HYGIENIST PCP - General 10/22/10 11/30/12 [address] [place] [address] [place] [address] documented as of this encounter
--- OUTSIDE RECORDS SUMMARY | 2022-06-28 09:00 | XMS_ITS | Encounter Summary ---
:1960 Author Organization [facility] Address [address] [place] [address] Care Team Providers Name Role Phone Hansa Lewis APRN, CNP Primary Care Provider [phone] Reason for Visit Reason Comments Other Encounter Details Date Type Department Care Team Description 07/06/2010 Telephone Specialty Center 393 1 Nephrology Center, Message Other [address] [place] [address] Social History Tobacco Use Types Packs/Day Years Used Date Smoking Tobacco: Never Assessed Sex Assigned at Date Recorded Not on file documented as of this encounter Progress Notes Center, Message - 07/06/2010 11:40 AM CST Phone Note filed by [employer] at 11/12/10130 Author: [employer] Service: (none) Author Type: (none) Filed: 11/12/10130 Note Time: 07/06/10 1140 Status: Signed Softball Core Molder: [employer] (Resource) PRESCRIPTION REFILL Please provide enough refills to last until patient's next visit. Comment:-lv 09/13/09 no future appt Pharmacy Seq #:-[phone] Pharmacy Name-Phone[facility]ax[facility] [phone] or City:-[place] Clinician Name:-David Drug Name/Strength:-Tenormin 50mg tab Sig: Dose/Route/Freq:-take one tab once daily Quantity & Last Fill:-#30 06/06/10 *ECODE~PNRF Created on 06Jul2010:40am by JULIO CÉSAR LEACH On 06Jul2010 3:40pm REYNOLD JOHNSON wrote: Qty 30 with 0 refills faxed into above pharmacy per standing order. Acknowledged by EVA HERRING on 3:55pm S CLEANING MACHINE TENDER documented in this encounter Plan of Treatment Not on filedocumented as of this encounter Visit Diagnoses Not on filedocumented in this encounter Care Teams Filler Leaf Cutter Long Relationship Specialty Start Date End Date Hansa Lewis APRN, POWER PLANT MECHANIC PCP - General 10/22/10 11/30/12 [address] [place] [address] [place] [address] documented as of this encounter
--- OUTSIDE RECORDS SUMMARY | 2022-06-28 09:00 | XMS_ITS | Encounter Summary ---
:1960 Author Organization [facility] Address [address] [place] [address] Care Team Providers Name Role Phone Huseyin Lewisjoao NGUYỄN CNP Primary Care Provider [phone] Reason for Visit Reason Comments Other Encounter Details Date Type Department Care Team Description 10/08/2010 Telephone Specialty Center 393 1 Nephrology Center, Message Other [address] [place] [address] Social History Tobacco Use Types Packs/Day Years Used Date Smoking Tobacco: Never Assessed Sex Assigned at Date Recorded Not on file documented as of this encounter Progress Notes Center, Message - 10/08/2010 12:41 PM CDT PRESCRIPTION REFILL Please provide enough refills to last until patient's next visit. Comment:- 09/25/10 no fv Pharmacy Seq #:- [phone] Pharmacy Name-Phone/Fax:- [facility] p/[phone] or City:- [place] Clinician Name:- lawrence Drug Name/Strength:- omeprazole 20mg cap Sig: Dose/Route/Freq:- 1 cap po daily Quantity & Last Fill:- 09/06/10 *ECODE~PNRF Created on 08Oct2010 12:41pm by TORIN BANKS On 09Oct2010 9:05am REYNOLD JOHNSON wrote: Qty 30 with 11 refills faxed into above pharmacy per standing order. Acknowledged by EVA HERRING on 10:38am documented in this encounter Plan of Treatment Not on filedocumented as of this encounter Visit Diagnoses Not on filedocumented in this encounter Care Teams Airport Location Manager Relationship Specialty Start Date End Date Hansa Lewis APRN, OFFICE PROFESSIONAL PCP - General 10/22/10 11/30/12 [address] [place] [address] [place] [address] documented as of this encounter
--- OUTSIDE RECORDS SUMMARY | 2022-06-28 09:00 | XMS_ITS | Encounter Summary ---
:1960 Author Organization [facility] Address [address] [place] [address] Care Team Providers Name Role Phone Hansa Lewis APRN, CNP Primary Care Provider [phone] Reason for Visit Reason Comments Other Encounter Details Date Type Department Care Team Description 03/29/2010 Telephone Specialty Center 393 1 Nephrology Center, Message Other [address] [place] [address] Social History Tobacco Use Types Packs/Day Years Used Date Smoking Tobacco: Never Assessed Sex Assigned at Date Recorded Not on file documented as of this encounter Progress Notes Center, Message - 03/29/2010 12:29 PM CDT Phone Note filed by [email or web address] at 11/11/101710 Author: [email or web address] Service: (none) Author Type: (none) Filed: 11/11/101710 Note Time: 03/29/10 1229 Status: Signed Code Inspector: [email or web address] (Resource) PRESCRIPTION REFILL Please provide enough refills to last until patient's next visit. Comment:-Last appt 09-13-09; no future appts Pharmacy Seq #:-[phone] Pharmacy Name-Phone[facility]Fax[facility] ph[facility]fx [phone] [facility] Name[facility]David Drug Name/Strength:-Prinivil 10MG Tab Sig: Dose/Route/Freq:-1 tab daily Quantity & Last Fill:-#30 02-26-10 *ECODE~PNRF Created on 29Mar2010 12:29pm by BALJIT BARRAZA On 29Mar2010 1:06pm REYNOLD JOHNSON wrote: Qty 30 with 3 refills faxed into above pharmacy per standing order. Acknowledged by EVA HERRING on 7:46am ENTARY SECRETARY documented in this encounter Plan of Treatment Not on filedocumented as of this encounter Visit Diagnoses Not on filedocumented in this encounter Care Teams Auto Rental Clerk Relationship Specialty Start Date End Date Hansa Lewis APRN, WOODEN BOX MAKER PCP - General 10/22/10 11/30/[address] [place] [address] documented as of this encounter
--- OUTSIDE RECORDS SUMMARY | 2022-06-28 09:00 | XMS_ITS | Encounter Summary ---
:1960 Author Organization [facility] Address [address] [place] [address] Care Team Providers Name Role Phone Hansa Lewis APRN, CNP Primary Care Provider [phone] Encounter Details Date Type Department Care Team Description 09/25/2011 Lab Visit [facility] Chronic kidney disease, [address] [facility] stage III (moderate) [place] [address] Social History Tobacco Use Types Packs/Day Years Used Date Smoking Tobacco: Never Assessed Sex Assigned at Date Recorded Not on file documented as of this encounter Plan of Treatment Not on filedocumented as of this encounter Procedures Procedure Name Priority Date/Time Associated Comments Diagnosis ALBUMIN/CREAT RATIO Routine 09/25/2011 12:18 Chronic kidney Re sults for this PM TRASH HAULER disease, stage III procedure are in (moderate) (HRC) the results section. CREATININE / GFR Routine 09/25/2011 12:17 Chronic kidney Resul ts for this PM TRASH HAULER disease, stage III procedure are in (moderate) (HRC) the results section. COMPLETE BLOOD Routine 09/25/2011 12:17 Chronic kidney Results for this COUNT-NO DIFF PM TRASH HAULER disease, stage III procedur e are in (moderate) (HRC) the results section. ELECTROLYTE PANEL Routine 09/25/2011 12:17 Chronic kidney Resu lts for this PM TRASH HAULER disease, stage III procedure are in (moderate) (HRC) the results section. PROTEIN, TOTAL Routine 09/25/2011 12:17 Chronic kidney Results for this (SERUM) PM TRASH HAULER disease, stage III procedure are in (moderate) (HRC) the results section. PHOSPHORUS Routine 09/25/2011 12:17 Chronic kidney Results f or this PM TRASH HAULER disease, stage III procedure are in (moderate) (HRC) the results section. CALCIUM Routine 09/25/2011 12:17 Chronic kidney Results f or this PM TRASH HAULER disease, stage III procedure are in (moderate) (HRC) the results section. BUN Routine 09/25/2011 12:17 Chronic kidney Results f or this PM TRASH HAULER disease, stage III procedure are in (moderate) (HRC) the results section. ALBUMIN Routine 09/25/2011 12:17 Chronic kidney Results f or this PM TRASH HAULER disease, stage III procedure are in (moderate) (HRC) the results section. documented in this encounter Results Microalb/Creat Ratio (09/25/2011 12:18 PM TRASH HAULER) Analysis Performed At Patho logist Time Signature Microalbumin 11.0 mg/L HP CONVERSION Urine U Creat Random 108 mg/dL HP CONVERSION Microalbumin/Crea 10.2 0.0 - 30.0 HP CONVERSI ON tinine Ratio Specimen Anatomical Collection Method Collection Time Receive d Time (Source) Location / / Volume Laterality 09/25/2011 12:18 09/25/2011 4:52 PM TRASH HAULER PM TRASH HAULER Terrence Hernandez MD LAB_1 Performing Organization Address City/State/ZIP Code Phon e Number HP CONVERSION Hemogram/Plts (09/25/2011 12:17 PM TRASH HAULER) P athologist Signature White Blood Cell 7.8 [...] / Volume Laterality 09/25/2011 12:17 09/25/2011 PM TRASH [facility]ULER 12:16 PM TRASH HAULER Narrative HP CONVERSION - 09/25/2011 12:27 PM TRASH HAULER Performed at [facility] [address] [place] [address] Terrence Hernandez MD LAB_1 Performing Organization Address [facility] Phon e Number HP CONVERSION Protein, Total (Serum) (09/25/2011 12:17 PM TRASH HAULER) athologist Signature Protein Total, 7.4 5.7 - 8.3 HP CONVERSION Serum g/dL Specimen Anatomical Collection Method Collection Time Receive d Time (Source) Location / / Volume Laterality 09/25/2011 12:17 09/25/2011 PM TRASH [facility]ULER 12:16 PM TRASH HAULER Narrative HP CONVERSION - 09/25/2011 2:46 PM TRASH HAULER Performed at [facility], [address] [place] [address] Terrence Hernandez MD LAB_1 Performing Organization Address [facility] Phon e Number HP CONVERSION Phosphorus (09/25/2011 12:17 PM TRASH HAULER) athologist [facility] Phosphorus 4.0 2.5 - 4.5 HP CONVERSION Serum mg/dL Specimen Anatomical Collection Method Collection Time Receive d Time (Source) Location / / Volume Laterality 09/25/2011 12:17 09/25/2011 PM TRASH HAULER 12:16 PM TRASH HAULER Narrative HP CONVERSION - 09/25/2011 2:46 PM TRASH HAULER Performed at [facility], [address] [place] [address] Terrence Hernandez MD LAB_1 Performing Organization Address [facility] Phon e Number HP CONVERSION Electrolyte Panel (09/25/2011 12:17 PM TRASH HAULER) athologist Signature Sodium 140 137 - 147 HP CONVERSION mEq/L Potassium 3.9 3.5 - 5.2 HP CONVERSION mEq/L Chloride 108 98 - 110 HP CONVERSION mEq/L Bicarbonate 26 23 - 33 HP CONVERSION mmol/L Specimen Anatomical Collection Method Collection Time Receive d Time (Source) Location / / Volume Laterality 09/25/2011 12:17 09/25/2011 PM TRASH HAULER 12:16 PM TRASH HAULER Narrative HP CONVERSION - 09/25/2011 2:46 PM TRASH HAULER Performed at [facility], [address] [place] [address] Terrence Hernandez MD LAB_1 Performing Organization Address [facility] Code Phon e Number HP CONVERSION (ABNORMAL) Creatinine / GFR (09/25/2011 12:17 PM TRASH HAULER) athologist Signature Creatinine 1.3 0.4 - 1.3 [...] / Volume Laterality 09/25/2011 12:17 09/25/2011 PM TRASH HAULER 12:16 PM TRASH HAULER Narrative HP CONVERSION - 09/25/2011 2:46 PM TRASH [place] [address] Terrence Hernandez MD LAB_1 Performing Organization Address [facility] Phon e Number HP CONVERSION Calcium (09/25/2011 12:17 PM TRASH HAULER) athologist Signature Calcium 9.7 8.5 - 10.5 HP CONVERSION mg/dL Specimen Anatomical Collection Method Collection Time Receive d Time (Source) Location / / Volume Laterality 09/25/2011 12:17 09/25/2011 PM TRASH HAULER 12:16 PM TRASH HAULER Narrative HP CONVERSION - 09/25/2011 2:46 PM TRASH HAULER Performed at [facility], [address] [place] [address] Terrence Hernandez MD LAB_1 Performing Organization Address [facility] Phon e Number HP CONVERSION BUN (09/25/2011 12:17 PM TRASH HAULER) athologist Signature Blood Urea 15 5 - 26 HP CONVERSION Nitrogen mg/dL Specimen Anatomical Collection Method Collection Time Receive d Time (Source) Location / / Volume Laterality 09/25/2011 12:17 09/25/2011 PM TRASH HAULER 12:16 PM TRASH HAULER Narrative HP CONVERSION - 09/25/2011 2:46 PM TRASH HAULER Performed at [facility], [address] [place] [address] Terrence Hernandez MD LAB_1 Performing Organization Address [facility] Phon e Number HP CONVERSION Albumin (09/25/2011 12:17 PM TRASH HAULER) athologist Signature Albumin 4.6 3.4 - 5.0 HP CONVERSION g/dL Specimen Anatomical Collection Method Collection Time Receive d Time (Source) Location / / Volume Laterality 09/25/2011 12:17 09/25/2011 PM TRASH HAULER 12:16 PM TRASH HAULER Narrative HP CONVERSION - 09/25/2011 2:46 PM TRASH HAULER Performed at [facility], [address] [place] [address] Terrence Hernandez MD LAB_1 Performing Organization Address [facility] Phon e Number HP CONVERSION documented in this encounter Visit Diagnoses Diagnosis Chronic kidney disease, stage III (moder ate) ([facility]) Chronic kidney disease, Stage III (moder ate) documented in this encounter Care Teams Manager Global Communications Relationship Specialty Start Date End Date Hansa Lewis APRN, ON SITE NURSE PCP - General 10/22/10 11/30/[address] [facility] [address] documented as of this encounter
--- OUTSIDE RECORDS SUMMARY | 2022-06-28 09:00 | XMS_ITS | Encounter Summary ---
:1960 Author Organization [facility] Address [address] [address] Care Team Providers Name Role Phone Hansa Lewis YARED NGUYỄN Primary Care Provider [phone] Encounter Details Date Type Department Care Team Description 09/25/2010 Office Visit Specialty Center [address] Newton Hernandez MD Nephrology [address] [facility] [address] [facility] [address] [place] [address] [id number] [phone] Social History Tobacco Use Types Packs/Day Years Used Date Smoking Tobacco: Never Assessed Sex Assigned at Date Recorded Not on file documented as of this encounter Last Filed Vital Signs Vital Sign Reading Time Taken Comments Blood Pressure 135/83 09/25/2010 9:17 AM LPN RN Pulse 44 09/25/2010 9:17 AM LPN RN Temperature - - Respiratory Rate - - Oxygen Saturation - - Inhaled Oxygen Concentration - - Weight 82.6 kg (181 lb 15.8 oz) 09/25/2010 9:17 AM LPN RN C: 82.6kg Height - - Body Mass Index 24.34 07/26/2008 2:24 PM LPN RN documented in this encounter Progress Notes Terrence Hernandez MD - 09/25/2010 12:01 AM CST NAME: JOSH MOSLEY MR#: [id number] ACCT: [id number] VISIT: [id number] DICTATING CLINICIAN: Terrence Hernandez MD CONFIRM #: [id number] LOC: 236 CLINIC PROGRESS NOTE DATE OF [...] not climb any higher. CC: CRISTINA ALEXIS [address] [place] [address] AET:MEDQ C: CONFIRM #: [id number] documented in this encounter Plan of Treatment Not on filedocumented as of this encounter Visit Diagnoses Not on filedocumented in this encounter Care Teams Windows Server Architect Relationship Specialty Start Date End Date Hansa Lewis APRN, BUSINESS SYSTEM MANAGER PCP - General 10/22/10 11/30/[address] [place] [address] documented as of this encounter
--- OUTSIDE RECORDS SUMMARY | 2022-06-28 09:00 | XMS_ITS | Encounter Summary ---
:1960 Author Organization [facility] Address [address] [place] [address] Care Team Providers Name Role Phone Hansa Lewis APRN, CNP Primary Care Provider [phone] Encounter Details Date Type Department Care Team Description 10/08/2011 Notes/Orders Specialty Center 39[address] Newton Hernandez MD Chronic kidney Nephrology [address] disease (CKD), stage [address] III (moderate) [place], [place] ([place]) [address] [phone] (Wo rk) Social History Tobacco Use Types [...] ate) documented in this encounter Care Teams Tanker Driver Relationship Specialty Start Date End Date Hansa Lewis APRN, CNP PCP - General 10/22/10 11/30/12 [address] [address] documented as of this encounter
--- OUTSIDE RECORDS SUMMARY | 2022-06-28 09:00 | XMS_ITS | Encounter Summary ---
:1960 Author Organization [facility] Address [address] [place] [address] Care Team Providers Name Role Phone Huseyin Lewisjoao NGUYỄN CNP Primary Care Provider [phone] Encounter Details Date Type Department Care Team Description 11/13/2010 PN Conversion Only [place] [address] [address] [address] [place], [place] [address] (Wo rk) Social History Tobacco Use Types [...] Direct LDL(If Needed) (11/13/2010 12:10 PM CDT) [facility] gist Method Time Signature Cholesterol 152 [...] Terrence Hernandez MD LAB_1 Performing Organization Address City/State/[facility] Code Phon e Number HP CONVERSION [...] Terrence Hernandez MD LAB_1 Performing Organization Address City/[facility] [place] [facility] Phon e Number HP CONVERSION Creatinine [...] Terrence Hernandez MD LAB_1 Performing Organization Address City/[facility]/ZIP Code Phon e Number HP CONVERSION Calcium (11/13/2010 [...] on filedocumented in this encounter Care Teams Jig Builder Relationship Specialty Start Date End Date Hansa Lewis APRN, FOAM RUBBER MIXER PCP - General 10/22/10 11/30/12 [address] [address] [address] documented as of this encounter
--- OUTSIDE RECORDS SUMMARY | 2022-06-28 09:00 | XMS_ITS | Encounter Summary ---
:1960 Author Organization [facility] Address [address], [place] [address] Care Team Providers Name Role Phone Hansa Lewis APRN, CNP Primary Care Provider [phone] Reason for Visit Reason Comments Other Encounter Details Date Type Department Care Team Description 05/08/2010 Telephone Specialty Center 393 1 Nephrology Center, Message Other [address] [place] [address] Social History Tobacco Use Types Packs/Day Years Used Date Smoking Tobacco: Never Assessed Sex Assigned at Date Recorded Not on file documented as of this encounter Progress Notes Center, Message - 05/08/2010 12:40 PM CDT Phone Note filed by [employer] at 11/11/102027 Author: [employer] Service: (none) Author Type: (none) Filed: 11/11/102027 Note Time: 05/08/10 1240 Status: Signed Nuclear Instructor: [employer] (Resource) PRESCRIPTION REFILL Please provide enough refills to last until patient's next visit. Comment:-lv 09/13/09 no future appt Pharmacy Seq #:-[phone] [facility]ax[facility] [phone] or City:-[place] Clinician Name:-David Drug Name/Strength:-Prilosec 20mg cap Sig: Dose/Route/Freq:-take one cap once daily Quantity & Last Fill:-#30 04/11/10 Created on 08May2010 12:40pm by TORIN BANKS On 08May2010 2:31pm REYNOLD JOHNSON wrote: Qty 30 with 1 refill faxed into above pharmacy per standing order. Acknowledged by EVA HERRING on 12:48pm [employer] documented in this encounter Plan of Treatment Not on filedocumented as of this encounter Visit Diagnoses Not on filedocumented in this encounter Care Teams Ski Edge Painter Relationship Specialty Start Date End Date Hansa Lewis APRN, SALES SOLUTIONS ASSOCIATE PCP - General 10/22/10 11/30/12 [address] [address] documented as of this encounter
--- OUTSIDE RECORDS SUMMARY | 2022-06-28 09:00 | XMS_ITS | Encounter Summary ---
:1960 Author Organization [employer] Address [address] [place] [address] Care Team Providers Name Role Phone Hansa Lewis APRN, CNP Primary Care Provider [phone] Encounter Details Date Type Department Care Team Description 06/12/2011 Notes/Orders Specialty Center 39[address] Newton Hernandez MD Chronic kidney Nephrology [address] disease, stage III [address] (moderate) (Primary [place], [place] Dx ) [phone] (Wo rk) Social History Tobacco Use Types Packs/Day Years Used Date Smoking Tobacco: Never Assessed Sex Assigned at Date Recorded Not on file documented as of this encounter Progress Notes Ingrid Geronimo - 06/12/2011 1:[address] David brooks signed 09/25/10 lab orders entered to include crf panel, umar 585.3 for patient to do 1 week prior to follow up appointment. documented in this encounter Plan of Treatment Not on filedocumented as of this encounter Visit Diagnoses Diagnosis Chronic kidney disease, stage III (moder ate) ([facility]) - Primary Chronic kidney disease, Stage III (moder ate) documented in this encounter Care Teams Architectural Associate Relationship Specialty Start Date End Date Hansa Lewis APRN, PRACTICE CLINICIAN PCP - General 10/22/10 11/30/[address] [place], [place] [id number] documented as of this encounter
--- OUTSIDE RECORDS SUMMARY | 2022-06-28 09:00 | XMS_ITS | Encounter Summary ---
:[address] [facility] Address [address] [place] [address] Care Team Providers Name Role Phone Hansa Lewis YARED NGUYỄN Primary Care Provider [phone] Encounter Details Date Type Department Care Team Description 02/17/2010 PN Conversion Only [place] [address] [address] [address] [place], [place] [address] (Wo rk) Social History Tobacco Use Types [...] MD LAB_1 Performing Organization Address [facility]/ZIP Code Phon e Number HP [...] Greater than 150 ng/m L Performed at [facility] [address] [address] Specimen (Source) Anatomical Collection Method Collection Time Re ceived Time Location / / Volume Laterality 02/17/2010 3:17 PM CDT Terrence Hernandez MD LAB_1 Performing Organization Address [facility] Phon e Number HP CONVERSION Intact PTH (02/17/2010 3:17 PM CDT) athologist Signature PTH 46 10 - 100 HP CONVERSION pg/mL Specimen (Source) Anatomical Collection Method Collection Time Re ceived Time Location / / Volume Laterality 02/17/2010 3:17 PM CDT Terrence Hernandez MD LAB_1 Performing Organization Address [facility] Phon e Number HP CONVERSION Electrolyte Panel [...] Terrence Hernandez MD LAB_1 Performing Organization Address City/[facility] Code Phon e Number HP [...] Terrence Hernandez MD LAB_1 Performing Organization Address City/[facility]/ZIP Code Phon e Number HP CONVERSION (ABNORMAL) Creatinine / GFR (02/17/2010 3:17 PM CDT) [facility] Signature Creatinine 1.5 (H) 0.4 [...] Terrence Hernandez MD LAB_1 Performing Organization Address City/[facility]/ZIP Code Phon e Number HP CONVERSION Calcium (02/17/2010 3:17 PM CDT) athologist Signature Calcium 10.4 8.5 - 10.5 HP CONVERSION mg/dL Specimen (Source) Anatomical Collection Method Collection Time Re ceived Time Location / / Volume Laterality 02/17/2010 3:17 PM CDT Terrence Hernandez MD LAB_1 Performing Organization Address City/[facility]/ZIP Code Phon e Number HP [...] Volume Laterality 02/17/2010 3:17 PM CDT Terrence Hernnadez MD LAB_1 Performing Organization Address City/State/ZIP Code Phon e Number HP CONVERSION documented in this encounter Visit Diagnoses Not on filedocumented in this encounter Care Teams Grocery Clerk Selling Relationship Specialty Start Date End Date Hansa Lewis, STEEL POST INSTALLER SUPERVISOR, STEEL PICKLER PCP - General 10/22/10 11/30/[address] [place] [address] documented as of this encounter
--- OUTSIDE RECORDS SUMMARY | 2022-06-28 09:00 | XMS_ITS | Encounter Summary ---
:1960 Author Organization [facility] [employer] Address [address] [place] [address] Care Team Providers Name Role Phone Adelaida Lewiserica NGUYỄN CNP Primary Care Provider [phone] Reason for Visit Reason Comments Other Encounter Details Date Type Department Care Team Description 09/28/2010 Telephone Specialty Center 393 1 Nephrology Center, Message Other [address] [place], [place] [address] Social History Tobacco Use Types Packs/Day Years [...] DRISCOLL Acknowledged by EVA HERRING on 10:15am IAC CATHETERIZATION TECHNICIAN documented in this encounter Plan of Treatment Not on filedocumented as of this encounter Visit Diagnoses Not on filedocumented in this encounter Care Teams Rags Laborer Relationship Specialty Start Date End Date Hansa Lewis APRN, EMAIL PRODUCTION CONSULTANT PCP - General 10/22/10 11/30/12 [address] [place] [address] documented as of this encounter
--- OUTSIDE RECORDS SUMMARY | 2022-06-28 09:00 | XMS_ITS | Encounter Summary ---
:1960 Author Organization [employer] Address [address] [place] [address] Care Team Providers Name Role Phone Hansa Lewis YARED NGUYỄN Primary Care Provider [phone] Encounter Details Date Type Department Care Team Description 09/20/2010 PN Conversion Only [place] [address] [address] [address] [place], [place] [address] (Wo rk) Social History Tobacco Use Types Packs/Day Years Used Date Smoking Tobacco: Never Assessed Sex Assigned at Date Recorded Not on file documented as of this encounter Plan of Treatment Not on filedocumented as of this encounter Procedures Procedure Name Priority Date/Time Associated Comments Diagnosis ALBUMIN/CREAT RATIO Routine 09/20/2010 2:36 PM Re sults for this WAREHOUSE INSULATION WORKER procedure are i n the results section. VITAMIN D 25-HYDROXY, Routine 09/20/2010 1:45 PM Results for this TOTAL WAREHOUSE INSULATION WORKER procedure are i n the results section. INTACT PTH Routine 09/20/2010 1:45 PM Results f or this WAREHOUSE INSULATION WORKER procedure are i n the results section. CREATININE / GFR Routine 09/20/2010 1:45 PM Resul ts for this WAREHOUSE INSULATION WORKER procedure are i n the results section. COMPLETE BLOOD Routine 09/20/2010 1:45 PM Results for this COUNT-NO DIFF WAREHOUSE INSULATION WORKER procedure are in the results section. ELECTROLYTE PANEL Routine 09/20/2010 1:45 PM Resu lts for this WAREHOUSE INSULATION WORKER procedure are i n the results section. PROTEIN, TOTAL Routine 09/20/2010 1:45 PM Results for this (SERUM) WAREHOUSE INSULATION WORKER procedure are i n the results section. PHOSPHORUS Routine 09/20/2010 1:45 PM Results f or this WAREHOUSE INSULATION WORKER procedure are i n the results section. CALCIUM Routine 09/20/2010 1:45 PM Results f or this WAREHOUSE INSULATION WORKER procedure are i n the results section. BUN Routine 09/20/2010 1:45 PM Results f or this WAREHOUSE INSULATION WORKER procedure are i n the results section. ALBUMIN Routine 09/20/2010 1:45 PM Results f or this WAREHOUSE INSULATION WORKER procedure are i n the results section. documented in this encounter Results Microalb/Creat Ratio (09/20/2010 2:36 PM WAREHOUSE INSULATION WORKER) Analysis Performed At Patho logist Time Signature Microalbumin <6.0 mg/L HP CONVERSION Urine U Creat Random <2 mg/dL HP CONVERSION Microalbumin/Crea <10.0 0.0 - 30.0 HP CONVERSI ON tinine Ratio Specimen (Source) Anatomical Collection Method Collection Time Re ceived Time Location / / Volume Laterality 09/20/2010 2:36 PM WAREHOUSE INSULATION WORKER Terrence Hernandez MD LAB_1 Performing Organization Address City/State/ZIP Code Phon e Number HP CONVERSION Hemogram/Plts (09/20/2010 1:45 PM WAREHOUSE INSULATION WORKER) P athologist Signature White Blood Cell 9.7 [...] / / Volume Laterality 09/20/2010 1:45 PM WAREHOUSE INSULATION WORKER Terrence Hernandez MD LAB_1 Performing Organization Address City/State/ZIP Code Phon e Number HP CONVERSION Vitamin D 25-Hydroxy, Total (09/20/2010 1:45 PM WAREHOUSE INSULATION WORKER) P athologist Signature Vitamin D 25 Oh 39 20 - 80 HP CONVERSION ng/mL Comment: Deficiency = <20 Adequate ??= 20-29 Preferred = 30-50 Uncertain safety = 51-80 High = >80 Specimen (Source) Anatomical Collection Method Collection Time Re ceived Time Location / / Volume Laterality 09/20/2010 1:45 PM WAREHOUSE INSULATION WORKER Terrence Hernandez MD LAB_1 Performing Organization Address City/[facility] Code Phon e Number HP CONVERSION Intact PTH (09/20/2010 1:45 PM WAREHOUSE INSULATION WORKER) athologist [facility] PTH 57 10 - 100 HP CONVERSION pg/mL Specimen (Source) Anatomical Collection Method Collection Time Re ceived Time Location / / Volume Laterality 09/20/2010 1:45 PM WAREHOUSE INSULATION WORKER Terrence Hernandez MD LAB_1 Performing Organization Address [facility] Phon e Number HP CONVERSION Electrolyte Panel (09/20/2010 1:45 PM WAREHOUSE INSULATION WORKER) athologist [facility] Sodium 138 137 - 147 HP CONVERSION mEq/L Potassium 3.9 3.5 - 5.2 HP CONVERSION mEq/L Chloride 105 98 - 110 HP CONVERSION mEq/L Bicarbonate 28 23 - 33 HP CONVERSION mmol/L Specimen (Source) Anatomical Collection Method Collection Time Re ceived Time Location / / Volume Laterality 09/20/2010 1:45 PM WAREHOUSE INSULATION WORKER Terrence Hernandez MD LAB_1 Performing Organization Address [facility] Phon e Number HP CONVERSION Protein, Total (Serum) (09/20/2010 1:45 PM WAREHOUSE INSULATION WORKER) athologist [facility] Protein Total, 7.6 5.7 - 8.3 HP CONVERSION Serum g/dL Specimen (Source) Anatomical Collection Method Collection Time Re ceived Time Location / / Volume Laterality 09/20/2010 1:45 PM WAREHOUSE INSULATION WORKER Terrence Hernandez MD LAB_1 Performing Organization Address City/[facility] Code Phon e Number HP CONVERSION Phosphorus (09/20/2010 1:45 PM WAREHOUSE INSULATION WORKER) athologist Signature Phosphorus 3.2 2.5 - 4.5 HP CONVERSION Serum mg/dL Specimen (Source) Anatomical Collection Method Collection Time Re ceived Time Location / / Volume Laterality 09/20/2010 1:45 PM WAREHOUSE INSULATION WORKER Terrence Hernandez MD LAB_1 Performing Organization Address City/[facility]/ZIP Code Phon e Number HP CONVERSION (ABNORMAL) Creatinine / GFR (09/20/2010 1:45 PM WAREHOUSE INSULATION WORKER) athologist Signature Creatinine 1.3 0.4 - 1.3 [...] / / Volume Laterality 09/20/2010 1:45 PM WAREHOUSE INSULATION WORKER Terrence Hernandez MD LAB_1 Performing Organization Address [facility] Phon e Number HP CONVERSION Calcium (09/20/2010 1:45 PM WAREHOUSE INSULATION WORKER) athologist Signature Calcium 9.8 8.5 - 10.5 HP CONVERSION mg/dL Specimen (Source) Anatomical Collection Method Collection Time Re ceived Time Location / / Volume Laterality 09/20/2010 1:45 PM WAREHOUSE INSULATION WORKER Terrence Hernandez MD LAB_1 Performing Organization Address [facility] Code Phon e Number HP CONVERSION BUN (09/20/2010 1:45 PM WAREHOUSE INSULATION WORKER) athologist Signature Blood Urea 23 5 - 26 HP CONVERSION Nitrogen mg/dL Specimen (Source) Anatomical Collection Method Collection Time Re ceived Time Location / / Volume Laterality 09/20/2010 1:45 PM WAREHOUSE INSULATION WORKER Terrence Hernandez MD LAB_1 Performing Organization Address City/[facility]/ZIP Code Phon e Number HP CONVERSION Albumin (09/20/2010 1:45 PM WAREHOUSE INSULATION WORKER) athologist Signature Albumin 4.8 3.4 - 5.0 HP CONVERSION g/dL Specimen (Source) Anatomical Collection Method Collection Time Re ceived Time Location / / Volume Laterality 09/20/2010 1:45 PM WAREHOUSE INSULATION WORKER Terrence Hernandez MD LAB_1 Performing Organization Address City/State/ZIP Code Phon e Number HP CONVERSION documented in this encounter Visit Diagnoses Not on filedocumented in this encounter Care Teams Wrapping Machine Tender Relationship Specialty Start Date End Date Hansa Lewis APRN, LOAD TESTER PCP - General 10/22/10 11/30/12 [address] [address] documented as of this encounter
--- OUTSIDE RECORDS SUMMARY | 2022-06-28 09:00 | XMS_ITS | Encounter Summary ---
:1960 Author Organization [employer] Address [address], [place] [address] Care Team Providers Name Role Phone Huseyin Lewisjoao NGUYỄN CNP Primary Care Provider [phone] Reason for Visit Reason Comments Other Encounter Details Date Type Department Care Team Description 07/07/2010 Telephone Specialty Center 393 1 Nephrology Center, Message Other [address] [place] [address] Social History Tobacco Use Types Packs/Day Years Used Date Smoking Tobacco: Never Assessed Sex Assigned at Date Recorded Not on file documented as of this encounter Progress Notes Gómez Yu - 07/07/2010 10:36 AM CST Phone Note filed by Gómez Yu at 11/12/10137 Author: Gómez Yu Service: (none) Author Type: (none) Filed: 11/12/10137 Note Time: 07/07/10 1036 Status: Signed Engineering Recruiter: Jacquelyn Conversion (Physician) PRESCRIPTION REFILL Please provide enough refills to last until patient's next visit. Comment:-Last appt 09-13-09; no future appts Pharmacy Seq #:-[phone] Pharmacy [facility]-Phone[facility]ax[facility]fx [phone] [facility]:-David Drug Name/Strength:-Prilosec 20mg caps Sig: Dose/Route/Freq:-1 cap daily Quantity & Last Fill:-06/07/10 *ECODE~PNRF Created on 07Jul2010 10:36am by GÓMEZ YU On 07Jul2010 12:47pm REYNOLD JOHNSON wrote: Qty 30 with 1 refill faxed into above pharmacy per standing order with note stating patient needs to schedule follow up visit. Acknowledged by EVA HERRING on 2:20pm N CARPENTER documented in this encounter Plan of Treatment Not on filedocumented as of this encounter Visit Diagnoses Not on filedocumented in this encounter Care Teams Carbide Grinder Relationship Specialty Start Date End Date Hansa Lewis APRN, DOUBLE NEEDLE OPERATOR LOCKSTITCH PCP - General 10/22/10 11/30/12 [address] [place] [address] [address] documented as of this encounter
--- OUTSIDE RECORDS SUMMARY | 2022-06-28 09:00 | XMS_ITS | Encounter Summary ---
:1960 Author Organization [employer] Address [address] [place] [address] Care Team Providers Name Role Phone Hansa Lewis YARED NGUYỄN Primary Care Provider [phone] Reason for Visit Reason Comments Chronic Kidney Disease Encounter Details Date Type Department Care Team Description 10/08/2011 Office Visit Specialty Center 3931 Newton Hernandez MD Unspecified essential hypertension; Nephrology 39[address] [facility] Chronic kidney disease (CKD) , stage III (moderate); [address] [facility] [address] [place] [phone] (Wo rk) Social History Tobacco Use Types [...] Body Mass Index 25.2 07/02/2011 1:44 PM SENIOR USER EXPERIENCE ARCHITECT documented in this encounter Patient Instructions Patient [...] 1039 Note Time: 10/08/11 1318 Status: Signed Shelver: Terrence Hernandez MD (Physician) NAME: JOSH MOSLEY MR#: [id number] CSN: [id number] AUTHENTICATING CLINICIAN: Terrence Hernandez MD CONFIRM #: [id number] LOC: 236 CLINIC PROGRESS NOTE DATE OF [...] is spent in counseling. CC: CRISTINA ALEXIS [address] [place] [address] AET:MEDQ C: CONFIRM #: [id number] documented in this encounter Plan of Treatment Not on filedocumented as of this encounter Visit Diagnoses Diagnosis Unspecified essential hypertension (HRC) Unspecified essential hypertension Chronic kidney disease (CKD), stage III (moderate) (HRC) Chronic kidney disease, Stage III (moder ate) Esophageal reflux documented in this encounter Care Teams Lime Mixer Tender Relationship Specialty Start Date End Date Hansa Lewis APRN, LINK TRAINER MAINTENANCE MAN PCP - General 10/22/10 11/30/[address] [place] [address] documented as of this encounter
--- OUTSIDE RECORDS SUMMARY | 2022-06-28 09:00 | XMS_ITS | Encounter Summary ---
:1960 Author Organization [employer] Address [address] [place] [address] Care Team Providers Name Role Phone Joshua Hansa NGUYỄN CNP Primary Care Provider [phone] Reason for Visit Reason Comments Other Encounter Details Date Type Department Care Team Description 08/09/2010 Telephone Specialty Center 393 1 Nephrology Center, Message Other [address] [place], [place] [address] Social History Tobacco Use Types Packs/Day Years Used Date Smoking Tobacco: Never Assessed Sex Assigned at Date Recorded Not on file documented as of this encounter Progress Notes Stefany Espinosa - 08/09/2010 2:36 PM CST PRESCRIPTION REFILL Please provide enough refills to last until patient's next visit. Comment:- lv 09-13-09 fv none Pharmacy Seq #:- [phone] Pharmacy Name-Phone/Fax[facility] p/f [phone] or City:- [place] Clinician Name:- David Drug Name/Strength:- Lisinopril 10mg [...] refills. Acknowledged by EVA HERRING on 12:11pm RVISOR PYROTECHNIC LOADING documented in this encounter Plan of Treatment Not on filedocumented as of this encounter Visit Diagnoses Not on filedocumented in this encounter Care Teams Gas Generator Operator Relationship Specialty Start Date End Date Hansa Lewis APRN, PARKING INSPECTOR PCP - General 10/22/10 11/30/12 [address] [place] [address] [address] documented as of this encounter
--- OUTSIDE RECORDS SUMMARY | 2022-06-28 09:00 | XMS_ITS | Encounter Summary ---
:1960 Author Organization [employer] Address [address] [place] [address] Care Team Providers Name Role Phone Hansa Lewis APRN, CNP Primary Care Provider [phone] Reason for Visit Reason Comments Other Encounter Details Date Type Department Care Team Description 08/07/2010 Telephone Specialty Center 393 1 Nephrology Center, Message Other [address] [place] [address] Social History Tobacco Use Types Packs/Day Years Used Date Smoking Tobacco: Never Assessed Sex Assigned at Date Recorded Not on file documented as of this encounter Progress Notes Center, Message - 08/07/2010 1:55 PM CST PRESCRIPTION REFILL Please provide enough refills to last until patient's next visit. Comment:-Last appt 09-13-09; no future appts Pharmacy Seq #:-[phone] Pharmacy Name-Phone[facility]Fax[facility] ph[facility]fx [phone] [facility] Name:-David Drug Name/Strength:-Tenormin 50MG Tab Sig: Dose/Route/Freq:-1 tab daily Quantity & Last Fill:-#30 07-06-10 *ECODE~PNRF Created on 07Aug2010 1:55pm by BALJIT BARRAZA On 07Aug2010 2:35pm SHANKAR BULL wrote: Qty 30 with no refills faxed to above pharmacy with reminder to make an appt within 30 days as pt missed 9 month f/u Acknowledged by EVA HERRING on 11:02am CTOR OF CASEWORK documented in this encounter Plan of Treatment Not on filedocumented as of this encounter Visit Diagnoses Not on filedocumented in this encounter Care Teams Enrollment Management Manager Relationship Specialty Start Date End Date Hansa Lewis APRN, SALESPERSON WOMEN'S HATS PCP - General 10/22/10 11/30/12 [address] [place] [address] [address] documented as of this encounter
--- OUTSIDE RECORDS SUMMARY | 2022-06-28 09:00 | XMS_ITS | Encounter Summary ---
:1960 Author Organization [facility] Address [address] [place] [address] Care Team Providers Name Role Phone Hansa Lewis APRN, CNP Primary Care Provider [phone] Reason for Visit Reason Comments Refill Encounter Details Date Type Department Care Team Description 09/25/2011 Refill Specialty Center 3931 Newton Hernandez MD Refill Nephrology 3931 [facility] [address] [place] [address] [place], [place] [address] [phone] Social History Tobacco Use Types Packs/Day Years Used Date Smoking Tobacco: Never Assessed Sex Assigned at Date Recorded Not on file documented as of this encounter Plan of Treatment Not on filedocumented as of this encounter Visit Diagnoses Not on filedocumented in this encounter Care Teams Unloading Checker Relationship Specialty Start Date End Date Hansa Lewis APRN, CNP PCP - General 10/22/10 11/30/12 [address] [place] [address] [address] documented as of this encounter
--- OUTSIDE RECORDS SUMMARY | 2022-06-28 09:00 | XMS_ITS | Encounter Summary ---
:1960 Author Organization [employer] Address [address] [place] [address] Care Team Providers Name Role Phone Hansa Lewis APRN, CNP Primary Care Provider [phone] Reason for Visit Reason Comments Other Encounter Details Date Type Department Care Team Description 09/08/2010 Telephone Specialty Center 393 1 Nephrology Center, Message Other [address] [place] [address] Social History Tobacco Use Types Packs/Day Years Used Date Smoking Tobacco: Never Assessed Sex Assigned at Date Recorded Not on file documented as of this encounter Progress Notes Center, Message - 09/08/2010 9:59 AM CST PRESCRIPTION REFILL Please provide enough refills to last until patient's next visit. Comment:-Last appt 09-13-09; next 09-25-10 Pharmacy Seq #:-[phone] Pharmacy Name-Phone/Fax:-[facility] ph/fx [phone] or City:-[facility] Clinician Name:-David Drug Name/Strength:-Prinivil 10MG Tab Sig: Dose/Route/Freq:-1 tab daily Quantity & Last Fill:-#30 08-09-10 *ECODE~PNRF Created on 08Sep2010 9:59am by BALJIT BARRAZA On 08Sep2010 11:11am REYNOLD JOHNSON wrote: Qty 30 with 0 refills faxed into above pharmacy per standing order. Acknowledged by EVA HERRING on 2:56pm GRAPH EXAMINER documented in this encounter Plan of Treatment Not on filedocumented as of this encounter Visit Diagnoses Not on filedocumented in this encounter Care Teams Answerer Relationship Specialty Start Date End Date Hansa Lewis APRN, LEARNING AND DEVELOPMENT MANAGER PCP - General 10/22/10 11/30/12 [address] [place] [address] [address] documented as of this encounter
--- OUTSIDE RECORDS SUMMARY | 2022-06-28 09:00 | XMS_ITS | Encounter Summary ---
:1960 Author Organization [employer] Address [address] [address] Care Team Providers Name Role Phone Hansa Lewis APRN, CNP Primary Care Provider [phone] Reason for Visit Reason Comments Other Encounter Details Date Type Department Care Team Description 12/02/2009 Telephone Specialty Center 393 1 Nephrology Reynold Johnson Other [address] [place] [address] Social History Tobacco Use Types Packs/Day Years Used Date Smoking Tobacco: Never Assessed Sex Assigned at Date Recorded Not on file documented as of this encounter Progress Notes Center, Message - 12/02/2009 7:23 AM CDT Phone Note filed by Contactual at 11/11/1034 Author: Contactual Service: (none) Author Type: (none) Filed: 11/11/1034 Note Time: 12/02/09722 Status: Signed Patch Driller: Contactual (Resource) PRESCRIPTION REFILL Please provide enough refills to last until patient's next visit. Comment:-lvd 09/13/09 current none Pharmacy Seq #:-[phone] Pharmacy Name-[facility]ax[facility] ph/fax [phone] or City:-[place] Clinician Name:-lawrence Drug Name/Strength:-vitamin d 50,000iu cap [...] faxed into above pharmacy per standing order. [employer] documented in this encounter Plan of Treatment Not on filedocumented as of this encounter Visit Diagnoses Not on filedocumented in this encounter Care Teams Automotive Worker Relationship Specialty Start Date End Date Hansa Lewis APRN, HOT FRAME TENDER PCP - General 10/22/10 11/30/12 [address] [place] [address] [address] documented as of this encounter
--- OUTSIDE RECORDS SUMMARY | 2022-06-28 09:00 | XMS_ITS | Encounter Summary ---
:1960 Author Organization [employer] Address [address] [place] [address] Care Team Providers Name Role Phone Hansa Lewis APRN, CNP Primary Care Provider [phone] Encounter Details Date Type Department Care Team Description 11/18/2010 PN Conversion Only Specialty Center 3931 Terrence Hernandez MD Nephrology 3931 [facility] [address] [facility] [address] [place] [address] [phone] (Wo rk) Social History Tobacco Use Types Packs/Day Years Used Date Smoking Tobacco: Never Assessed Sex Assigned at Date Recorded Not on file documented as of this encounter Plan of Treatment Not on filedocumented as of this encounter Visit Diagnoses Not on filedocumented in this encounter Care Teams Assembler Installer Structures Relationship Specialty Start Date End Date Hansa Lewis APRN, CNP PCP - General 10/22/10 11/30/12 [address] [place] [address] [address] documented as of this encounter
--- OUTSIDE RECORDS SUMMARY | 2022-06-28 09:00 | XMS_ITS | Encounter Summary ---
:1960 Author Organization [employer] Address [address] [place] [address] Care Team Providers Name Role Phone LiliaHuseyin churchjoao NGUYỄN CNP Primary Care Provider [phone] Encounter Details Date Type Department Care Team Description 07/02/2011 Hospital Encounter Heart & Vascular Irineo Ryan [facility] MD Cristian [address] [place] [address] [phone] (Wo rk) Social History Tobacco Use Types [...] PRILOSEC) Take 1 capsule by 30 11 10/30/2013 20 MG capsule mouth daily (every 24 hours). LW Addl Instr:Indicated for: Acid Reflux UNKNOWN MEDICATION Indications: PN: 0 09/25/2010 10/08/2011 documented as of this encounter Plan of Treatment Not on filedocumented as of this encounter Visit Diagnoses Not on filedocumented in this encounter Care Teams Vp Corporate Partnerships Relationship Specialty Start Date End Date Hansa Lewis APRN, COMMUNITY HEALTH AGENT PCP - General 10/22/10 11/30/12 [address] [place] [address] [address] documented as of this encounter
--- OUTSIDE RECORDS SUMMARY | 2022-06-28 09:00 | XMS_ITS | Encounter Summary ---
:1960 Author Organization [employer] Address [address] [place] [address] Care Team Providers Name Role Phone Hansa Lewis APRN, CNP Primary Care Provider [phone] Reason for Visit Reason Comments Other Encounter Details Date Type Department Care Team Description 09/06/2010 Telephone Specialty Center 393 1 Nephrology Center, Message Other [address] [place] [address] Social History Tobacco Use Types Packs/Day Years Used Date Smoking Tobacco: Never Assessed Sex Assigned at Date Recorded Not on file documented as of this encounter Progress Notes Center, Message - 09/06/2010 9:34 AM CST PRESCRIPTION REFILL Please provide enough refills to last until patient's next visit. Comment:-Last appt 09-13-09; next 09-25-10 Pharmacy Seq #:-[phone] Pharmacy Name-Phone/Fax:-[facility] ph/fx [phone] or City:-[facility] Clinician Name:-David Drug Name/Strength:-Prilosec 20MG Cap Sig: Dose/Route/Freq:-1 cap daily Quantity & Last Fill:-#30 08-06-10 *ECODE~PNRF Created on 06Sep2010 9:34am by BALJIT BARRAZA On 06Sep2010 11:37am SHANKAR BULL wrote: Qty 30 with no refills faxed to above pharmacy Acknowledged by EVA HERIRNG on 4:30pm NG EYE DOG TEACHER documented in this encounter Plan of Treatment Not on filedocumented as of this encounter Visit Diagnoses Not on filedocumented in this encounter Care Teams Community Coordinator For High School Relationship Specialty Start Date End Date Hansa Lewis APRN, PULLMAN CAR CLERK PCP - General 10/22/10 11/30/12 [address] [facility] [place] [address] documented as of this encounter
--- OUTSIDE RECORDS SUMMARY | 2022-06-28 09:00 | XMS_ITS | Encounter Summary ---
:1960 Author Organization [employer] Address [address] [place] [address] Care Team Providers Name Role Phone LilialynnetteHansa APRN, CNP Primary Care Provider [phone] Reason for Visit Reason Comments Other Encounter Details Date Type Department Care Team Description 05/18/2010 Telephone [facility] 393 1 Nephrology Center, Message Other [address] [place] [address] Social History Tobacco Use Types Packs/Day Years Used Date Smoking Tobacco: Never Assessed Sex Assigned at Date Recorded Not on file documented as of this encounter Progress Notes Stefany Espinosa - 05/18/2010 3:40 PM CDT Phone Note filed by Stefany Espinosa at 11/11/102126 Author: Stefany Espinosa Service: (none) Author Type: (none) Filed: 11/11/102126 Note Time: 05/18/10 1540 Status: Signed Loan Officer: Jacquelyn Conversion (Physician) PRESCRIPTION REFILL Please provide enough refills to last until patient's next visit. Comment:- lv 09-13-09 fv none Pharmacy Seq #:- [phone] [facility]Phone[facility]ax[facility] [phone] or City:- [place] Clinician Name:- Hernandez Drug Name/Strength:- D3-50 Sig: Dose/Route/Freq:- take 1 by mouth weekly Quantity & Last Fill:- 03-02-10 *ECODE~PNRF Created on 18May2010 3:40pm by STEFANY GUERRA On 19May2010 8:39am REYNOLD JOHNSON wrote: Medlist also has vitamin D3-1000 units daily. What do you want patient to take for vitamin D? On 19May2010 8:53am EVA HERNANDEZ wrote: He should go back to leoncio 1000 units daily. He should be done with the 50K units weekly. Acknowledged by EVA HERNANDEZ on 8:53am On 19May2010 9:58am REYNOLD JOHNSON wrote: Pharmacy notified. Pharmacy said they will notify patient. TRANSITIONS MANAGER documented in this encounter Plan of Treatment Not on filedocumented as of this encounter Visit Diagnoses Not on filedocumented in this encounter Care Teams Toll Line Repairer Relationship Specialty Start Date End Date Hansa Lewis APRN, FINGERNAIL SCULPTURER PCP - General 10/22/10 11/30/12 [address] [place] [address] documented as of this encounter
--- OUTSIDE RECORDS SUMMARY | 2022-06-28 09:00 | XMS_ITS | Encounter Summary ---
:1960 Author Organization [employer] Address [address] [place] [address] Care Team Providers Name Role Phone Hansa Lewis APRN, CNP Primary Care Provider [phone] Reason for Visit Reason Comments Other Encounter Details Date Type Department Care Team Description 09/14/2010 Telephone Specialty Center 393 1 Nephrology Center, Message Other [address] [place] [address] Social History Tobacco Use Types Packs/Day Years Used Date Smoking Tobacco: Never Assessed Sex Assigned at Date Recorded Not on file documented as of this encounter Progress Notes Center, Message - 09/14/2010 9:30 AM CST PRESCRIPTION REFILL Please provide enough refills to last until patient's next visit. Comment:-Last appt 09-13-09; next 09-25-10 Pharmacy Seq #:-[phone] Pharmacy Name-Phone/Fax[facility] ph[facility]fx [phone] or City:-[facility] Clinician Name:-David Drug Name/Strength:-Tenormin 50MG Tab Sig: Dose/Route/Freq:-1 tab daily Quantity & Last Fill:-#30 08-07-10 *ECODE~PNRF Created on 14Sep2010 9:30am by BALJIT BARRAZA On 14Sep2010 10:47am SHANKAR BULL wrote: Qty 30 with no refills faxed to above pharmacy Acknowledged by EVA HERRING on 9:39am WASHER documented in this encounter Plan of Treatment Not on filedocumented as of this encounter Visit Diagnoses Not on filedocumented in this encounter Care Teams Employee Relations Specialist Relationship Specialty Start Date End Date Hansa Lewis, DELMA, CHILDREN'S TUTOR NURSERY PCP - General 10/22/10 11/30/12 [address] [place] [address] documented as of this encounter
--- OUTSIDE RECORDS SUMMARY | 2022-06-28 09:00 | XMS_ITS | Encounter Summary ---
:1960 Author Organization [employer] Address [address], [place] [address] Care Team Providers Name Role Phone Hansa Lewis APRN, CNP Primary Care Provider [phone] Reason for Visit Reason Comments LEG PAIN Encounter Details Date Type Department Care Team Description 07/02/2011 Initial Consult Heart & Vascular Connor, Varicose veins of [facility] & Lemuel Foster MD lower extremities Vein [facility] [address] with other [address] [place], [place] (Primary Dx) [facility] [address] [place] [address] [phone] Social History Tobacco Use Types Packs/Day Years Used Date Smoking Tobacco: Never Assessed Sex Assigned at Date Recorded Not on file documented as of this encounter Last Filed Vital Signs Vital Sign Reading Time Taken Comments Blood Pressure 129/85 07/02/2011 1:44 PM ORNAMENTAL METAL WORKER Pulse 67 07/02/2011 1:44 PM ORNAMENTAL METAL WORKER Temperature - - Respiratory Rate - - Oxygen Saturation - - Inhaled Oxygen Concentration - - Weight 85.1 kg (187 lb 9.6 oz) 07/02/2011 1:44 PM ORNAMENTAL METAL WORKER Height 185.4 cm (6' 1) 07/02/2011 1:44 PM ORNAMENTAL METAL WORKER Body Mass Index 24.75 07/02/2011 1:44 PM ORNAMENTAL METAL WORKER documented in this encounter Progress Notes Sulma Velasquez APRN, CNP - 07/31/2011 11:43 AM ORNAMENTAL METAL WORKER Quick Note: Results discussed during office visit 07/02/11. MENTAL METAL WORKER Lemuel Ryan MD - 07/02/2011 5:35 PM CST Progress Notes signed by Lemuel Ryan MD at 07/03/11 1021 Author: Lemuel Ryan MD Service: (none) Author Type: Physician Filed: 07/03/11 1021 Note Time: 07/02/111734 Status: Signed Advertising Strategist: Lemuel Ryan MD (Physician) NAME: JOSH MOSLEY MR#: [id number] CSN: [id number] AUTHENTICATING CLINICIAN: Lemuel Ryan MD CONFIRM #: [id number] LOC: 3588 CLINIC PROGRESS NOTE DATE OF [...] relieve his symptoms. MTS:MEDQ C: CONFIRM #: [id number] MENTAL METAL WORKER documented in this encounter Miscellaneous Notes Miscellaneous - 08/31/2016 9:17 PM CSTNotes Recorded by Sulma Salvador RN on 07/31/2011 at 11:43 AMResults discussed during office visit 12/12/11. MENTAL METAL WORKER documented in this encounter Plan of Treatment Not on filedocumented as of this encounter Procedures Procedure Name Priority Date/Time Associated Diagnosis Comme nts US LOWER Routine 07/02/2011 2:37 PM Varicose veins of Resu lts for this EXTREMITY RT ORNAMENTAL METAL WORKER lower extremities with proce dure are in VENOUS REFLUX other complications the res ults section. documented in this encounter Results US Lower Extremity Rt Venous Reflux (07/02/2011 2:37 PM ORNAMENTAL METAL WORKER) Anatomical Region Laterality Modality Vascular, Lower Extremity, Leg Other Specimen (Source) Anatomical Location Collection Method / Collectio n Time Received Time / Laterality Volume Impressions 07/31/2011 11:02 AM ORNAMENTAL METAL WORKER Superficial thrombophlebitis within a va ricose vein at the distal medial calf level. No evidence of right lower extremity moo p or superficial venous incompetence. No evidence of right lower extremity moo p venous thrombosis. Narrative 07/31/2011 11:02 AM ORNAMENTAL METAL WORKER Indication: varicose veins Note: Previous right greater [...] Primary documented in this encounter Care Teams Boxing Inspector Relationship Specialty Start Date End Date Hansa Lewis APRN, ELECTRICAL EXPERIMENTAL MECHANIC PCP - General 10/22/10 11/30/12 [address] [place] [address] documented as of this encounter
--- OUTSIDE RECORDS SUMMARY | 2022-06-28 09:00 | XMS_ITS | Encounter Summary ---
:1960 Author Organization [facility] Address [address] [place] [address] Care Team Providers Name Role Phone Hansa Lewis APRN, CNP Primary Care Provider [phone] Encounter Details Date Type Department Care Team Description 06/26/2011 [facility] [address] [place] [address] Social History Tobacco Use Types Packs/Day Years Used Date Smoking Tobacco: Never Assessed Sex Assigned at Date Recorded Not on file documented as of this encounter Plan of Treatment Not on filedocumented as of this encounter Visit Diagnoses Not on filedocumented in this encounter Care Teams Grain Broker And Market Operator Relationship Specialty Start Date End Date Hansa Lewis APRN, CNP PCP - General 10/22/10 11/30/[address] [place] [address] documented as of this encounter
--- OUTSIDE RECORDS SUMMARY | 2022-06-28 09:00 | XMS_ITS | Encounter Summary ---
:1960 Author Organization [employer] Address [address] [place] [address] Care Team Providers Name Role Phone Hansa Lewis APRN, CNP Primary Care Provider [phone] Reason for Visit Reason Comments Other Encounter Details Date Type Department Care Team Description 01/30/2010 Telephone Specialty Center 393 1 Nephrology Center, Message Other [address] [place] [address] Social History Tobacco Use Types Packs/Day Years Used Date Smoking Tobacco: Never Assessed Sex Assigned at Date Recorded Not on file documented as of this encounter Progress Notes Center, Message - 01/30/2010 9:10 AM CDT Phone Note filed by [employer] at 11/11/10 7072 Author: [employer] Service: (none) Author Type: (none) Filed: 11/11/10 5890 Note Time: 01/30/10909 Status: Signed Meat Boner: [employer] (Resource) PRESCRIPTION REFILL Please provide enough refills to last until patient's next visit. Comment:-Last appt 09-13-09; no future appts Pharmacy Seq #:-[phone] Pharmacy Name[facility]Phone[facility]ax[facility]fx [phone] [facility] Clin[facility] Name:-David Drug Name/Strength:-Tenormin 50MG Tab Sig: Dose/Route/Freq:-1 tab daily Quantity & Last Fill:-#30 12-29-09 *ECODE~PNRF Created on 30Jan2010 9:10am by BALJIT BARRAZA On 30Jan2010 10:17am REYNOLD JOHNSON wrote: Qty 30 with 4 refills faxed into above pharmacy per standing order. Acknowledged by EVA HERRING on 4:05pm T AND TABLE EDGER documented in this encounter Plan of Treatment Not on filedocumented as of this encounter Visit Diagnoses Not on filedocumented in this encounter Care Teams Plant General Manager Relationship Specialty Start Date End Date Hansa Lewis APRN, MARINE PROPULSION TECHNICIAN PCP - General 10/22/10 11/30/[address] [place] [address] documented as of this encounter
--- OUTSIDE RECORDS SUMMARY | 2022-06-28 09:01 | XMS_ITS | Encounter Summary ---
:1960 Author Organization [employer] Address [address] [place] [address] Care Team Providers Name Role Phone Hansa Lewis APRN, CNP Primary Care Provider [phone] Reason for Visit Reason Comments Other Encounter Details Date Type Department Care Team Description 06/07/2008 Telephone [facility], Message Other [address] [place], [place] [address] Social History Tobacco Use Types Packs/Day Years Used Date Smoking Tobacco: Never Assessed Sex Assigned at Date Recorded Not on file documented as of this encounter Progress Notes Center, Message - 06/07/2008 10:50 AM CST Phone Note filed by [employer] at 11/09/10 1037 Author: [employer] Service: (none) Author Type: (none) Filed: 11/09/10 1037 Note Time: 06/07/08 1050 Status: Signed Geospatial Program Management Officer: [employer] Front Line Sx Call Caller Name/Relationship: Veronica/ Primary Printed Circuit Board Preassembler: Joshua Symptom or request? states she tried to call kidney specialist, cannot get in until July, wondering if she can get referral to be seen sooner. Is appointment scheduled & when? no Chief Of Anesthesiology: Veronica Best call back number: [phone] or [phone] Is it OK to leave a confidential [...] his Acknowledged by AVTAR FABIAN on 11:35am HAULER documented in this encounter Plan of Treatment Not on filedocumented as of this encounter Visit Diagnoses Not on filedocumented in this encounter Care Teams Wringer And Setter Relationship Specialty Start Date End Date Hansa Lewis APRN, HARDWOOD FINISHER PCP - General 10/22/10 11/30/12 [address] [place] [address] documented as of this encounter
--- OUTSIDE RECORDS SUMMARY | 2022-06-28 09:01 | XMS_ITS | Encounter Summary ---
:1960 Author Organization [employer] Address [address], [place] [address] Care Team Providers Name Role Phone Hansa Lewis APRN, CNP Primary Care Provider [phone] Reason for Visit Reason Comments Other Encounter Details Date Type Department Care Team Description 06/02/2008 Telephone [facility] Adelaida Lewis APRN, CNP Other Medicine [address] [facility] [address] [place] [address] [place] [address] [phone] Social History Tobacco Use Types Packs/Day Years Used Date Smoking Tobacco: Never Assessed Sex Assigned at Date Recorded Not on file documented as of this encounter Progress Notes Center, Message - 06/02/2008 3:45 PM CST Phone Note filed by [employer] at 11/09/10 1020 Author: [facility] Service: (none) Author Type: (none) Filed: 11/09/10 1020 Note Time: 06/02/08 1545 Status: Signed Director Medicaid: [facility] X-Ray US Renal and Bladder results are available in LastWord. Created on 02Jun2008 3:45pm by STEPHANIE VIVAR On 02Jun2008 4:14pm HANSA LEWIS wrote: will send report to PM Acknowledged by HANSA LEWIS on 4:14pm NSE CLERK documented in this encounter Plan of Treatment Not on filedocumented as of this encounter Visit Diagnoses Not on filedocumented in this encounter Care Teams Aircraft Delivery Checker Relationship Specialty Start Date End Date Hansa Lewis APRN, ERRAND RUNNER PCP - General 10/22/10 11/30/12 [address] [place] [address] documented as of this encounter
--- OUTSIDE RECORDS SUMMARY | 2022-06-28 09:01 | XMS_ITS | Encounter Summary ---
:1960 Author Organization [employer] Address [address] [place] [address] Care Team Providers Name Role Phone Hansa Lewis APRN, YARED Primary Care Provider [phone] Encounter Details Date Type Department Care Team Description 07/03/2008 PN Conversion Only [place] N Hasna Lewis APRN, [address] [employer] [place] [address] [facility] [address] [place] [address] (Wo rk) Social History Tobacco Use Types Packs/Day Years Used Date Smoking Tobacco: Never Assessed Sex Assigned at Date Recorded Not on file documented as of this encounter Plan of Treatment Not on filedocumented as of this encounter Procedures Procedure Name Priority Date/Time Associated Comments Diagnosis URINALYSIS Routine 07/03/2008 8:34 AM Results f or this ROUTINE(MICRO IF POS) AUTOMOBILE RENTAL CLERK proced ure are in the results section. URINALYSIS Routine 07/03/2008 8:34 AM Results f or this MICROSCOPIC AUTOMOBILE RENTAL CLERK procedure are i n the results section. CREATININE / GFR Routine 07/03/2008 8:34 AM Resul ts for this AUTOMOBILE RENTAL CLERK procedure are i n the results section. ALBUMIN/CREAT RATIO Routine 07/03/2008 8:34 AM Re sults for this AUTOMOBILE RENTAL CLERK procedure are i n the results section. documented in this encounter Results (ABNORMAL) Creatinine / GFR (07/03/2008 8:34 AM AUTOMOBILE RENTAL CLERK) Analysis Performed At Patho logist Time Signature Creatinine 1.8 (H) 0.4 - 1.3 HP CONVERSION Serum mg/dL Est GFR 49 (L) >60 HP CONVERSION Am Comment: -[place] Islander and Cnr-Okvkzrc-Njqwmfy n reference range units: mL/min/1.73m2 Normal>60, moderate [...] / / Volume Laterality 07/03/2008 8:34 AM AUTOMOBILE RENTAL CLERK Hansa Lewis APRN, CNP LAB_1 Performing Organization Address [facility] Phon e Number HP CONVERSION Urinalysis Routine(Micro If Pos) (07/03/2008 8:34 AM AUTOMOBILE RENTAL CLERK) Passworks Method Time Signature Turbidity Clear No normal [...] Specific >=1.030 1.005 - 25 HP CONVERSION [place] Specimen (Source) Anatomical Collection Method Collection Time Re ceived Time Location / / Volume Laterality 07/03/2008 8:34 AM AUTOMOBILE RENTAL CLERK Hansa Lewis APRN, CNP LAB_1 Performing Organization Address [facility] Phon e Number HP CONVERSION (ABNORMAL) Urinalysis Microscopic (07/03/2008 8:34 AM AUTOMOBILE RENTAL CLERK) Punch Through Design gist Method Time Signature White Blood 0-2/HPF 0 - 3 HP CONVERSION Cells Urine Red Blood Negative 0 - 2 HP CONVERSION Cells Urine Bacteria Occassnl (A) None HP CONVERSION Urine Urine Mucus Moderate None HP CONVERSION Specimen (Source) Anatomical Collection Method Collection Time Re ceived Time Location / / Volume Laterality 07/03/2008 8:34 AM AUTOMOBILE RENTAL CLERK Hansa Lewis APRN, CNP LAB_1 Performing Organization Address [facility]/ZIP Code Phon e Number HP CONVERSION (ABNORMAL) Microalb/Creat Ratio (07/03/2008 8:34 AM AUTOMOBILE RENTAL CLERK) [facility] gist Method Time Signature U Creat Random [...] / / Volume Laterality 07/03/2008 8:34 AM AUTOMOBILE RENTAL CLERK Hansa Lewis APRN, CNP LAB_1 Performing Organization Address City/State/ZIP Code Phon e Number HP CONVERSION documented in this encounter Visit Diagnoses Not on filedocumented in this encounter Care Teams Cutter Brake Lining Relationship Specialty Start Date End Date Hansa Lewis APRN, CNP PCP - General 10/22/10 11/30/12 [address] [place] [address] documented as of this encounter
--- OUTSIDE RECORDS SUMMARY | 2022-06-28 09:01 | XMS_ITS | Encounter Summary ---
:1960 Author Organization [employer] Address [address], [place] [address] Care Team Providers Name Role Phone Hansa Lewis APRN, YARED Primary Care Provider [phone] Encounter Details Date Type Department Care Team Description 05/31/2008 PN Conversion Only [place] N Hansa Lewis APRN, [address] [place] [address] [facility] [address] [place], [place] [address] (Wo rk) Social History Tobacco Use Types Packs/Day Years Used Date Smoking Tobacco: Never Assessed Sex Assigned at Date Recorded Not on file documented as of this encounter Plan of Treatment Not on filedocumented as of this encounter Procedures Procedure Name Priority Date/Time Associated Comments Diagnosis TOTAL PROTEIN UR 24 Routine 05/31/2008 10:35 AM R esults for this HR TERMINAL CARMAN procedure are i n the results section. CREATININE CLEARANCE Routine 05/31/2008 10:35 AM Results for this TERMINAL CARMAN procedure are i n the results section. documented in this encounter Results (ABNORMAL) Creatinine Clearance (05/31/2008 10:35 AM TERMINAL CARMAN) Analysis Performed At [facility] Time Signature Height 72 in. HP CONVERSION [...] / / Volume Laterality 05/31/2008 10:35 AM TERMINAL CARMAN Hansa Lewis APRN, CNP LAB_1 Performing Organization Address City/State/ZIP Code Phon e Number HP CONVERSION Total Protein Urine 24 Hr (05/31/2008 10:35 AM TERMINAL CARMAN) P athologist Signature Urine Protein 75 0 - 165 HP CONVERSION 24 hr mg/24h Urine Protein, 6 mg/dL HP CONVERSION Random Total Volume 1,250 mL HP CONVERSION Urine Protein Specimen (Source) Anatomical Collection Method Collection Time Re ceived Time Location / / Volume Laterality 05/31/2008 10:35 AM TERMINAL CARMAN Hansa Lewis APRN, CNP LAB_1 Performing Organization Address City/[facility]/ZIP Code Phon e Number HP CONVERSION documented in this encounter Visit Diagnoses Not on filedocumented in this encounter Care Teams Motors Assembler Relationship Specialty Start Date End Date Hansa Lewis APRN, CNP PCP - General 10/22/10 11/30/12 [address] [place] [address] documented as of this encounter
--- OUTSIDE RECORDS SUMMARY | 2022-06-28 09:01 | XMS_ITS | Encounter Summary ---
:1960 Author Organization [employer] Address [address] [address] Care Team Providers Name Role Phone Hansa Lewis APRN, CNP Primary Care Provider [phone] Encounter Details Date Type Department Care Team Description 07/06/2008 Office Visit [place] [facility] Hansa Lewis APRN, [facility] [address] [address] [place] [address] [place] [address] [phone] (Wo rk) Social History Tobacco Use Types Packs/Day Years Used Date Smoking Tobacco: Never Assessed Sex Assigned at Date Recorded Not on file documented as of this encounter Last Filed Vital Signs Vital Sign Reading Time Taken Comments Blood Pressure 130/60 07/06/2008 3:58 PM FINANCIAL AID COORDINATOR Pulse 60 07/06/2008 3:58 PM FINANCIAL AID COORDINATOR Temperature - - Respiratory Rate - - Oxygen Saturation - - Inhaled Oxygen Concentration - - Weight 80.3 kg (176 lb 15.8 oz) 07/06/2008 3:58 PM FINANCIAL AID COORDINATOR C: 80.3kg Height - - Body Mass Index 23.67 06/06/2007 8:21 AM FINANCIAL AID COORDINATOR documented in this encounter Progress Notes Hansa Lewis APRN, PLANER OPERATOR - 07/06/2008 12:01 AM CST Progress Notes signed by CRISTINA Steeel at 08/04/08 0508 Author: CRISTINA Steele Service: (none) Author Type: (none) Filed: 11/11/10 0926 Note Time: 07/06/08 0001 Status: Signed [place] Vessel Pilot: CRISTINA Steele (Nurse Practitioner) NAME: JOSH MOSLEY MR#: [id number] ACCT: [id number] VISIT: [id number] DICTATING CLINICIAN: CRISTINA Steele CONFIRM #: [id number] LOC: 506 CLINIC PROGRESS NOTE DATE OF [...] that I wanted him to see a distributor of directories and he is scheduled for 07/26 with [...] His last potassium was 5.3 on 05/19. Angely is in agreement with the above plan. LAE:[id number] C: 07/07/08 11:53 CONFIRM #: [id number] NCIAL AID COORDINATOR documented in this encounter Plan of Treatment Not on filedocumented as of this encounter Visit Diagnoses Not on filedocumented in this encounter Care Teams Residue Furnace Operator Relationship Specialty Start Date End Date Hansa Lewis APRN, PLANER OPERATOR PCP - General 10/22/10 11/30/[address] [place] [address] documented as of this encounter
--- OUTSIDE RECORDS SUMMARY | 2022-06-28 09:01 | XMS_ITS | Encounter Summary ---
:1960 Author Organization [employer] Address [address] [place] [address] Care Team Providers Name Role Phone Hansa Lewis YARED NGUYỄN Primary Care Provider [phone] Encounter Details Date Type Department Care Team Description 08/26/2008 Office Visit Specialty Center [address] Hernandez MD Nephrology [address] [facility] [address] [place] [address] [place] [id number] [phone] Social History Tobacco Use Types Packs/Day Years Used Date Smoking Tobacco: Never Assessed Sex Assigned at Date Recorded Not on file documented as of this encounter Last Filed Vital Signs Vital Sign Reading Time Taken Comments Blood Pressure 134/88 08/26/2008 8:24 AM STRAP CUTTER Pulse 67 08/26/2008 8:24 AM STRAP CUTTER Temperature - - Respiratory Rate - - Oxygen Saturation - - Inhaled Oxygen Concentration - - Weight 79.4 kg (174 lb 15.7 oz) 08/26/2008 8:24 AM STRAP CUTTER C: 79.4kg Height - - Body Mass Index 23.41 07/26/2008 2:24 PM STRAP CUTTER documented in this encounter Progress Notes Terrence Hernandez MD - 08/26/2008 12:01 AM CST Progress Notes signed by Terrence Hernandez MD at 08/27/08 0738 Author: Terrence Hernandez MD Service: (none) Author Type: Physician Filed: 11/11/10 1040 Note Time: 08/26/08 0001 Status: Signed Subcontracts Manager: Terrence Hernadnez MD (Physician) NAME: JOSH MOSLEY MR#: [id number] ACCT: [id number] VISIT: [id number] DICTATING CLINICIAN: Terrence Hernandez MD CONFIRM #: [id number] LOC: 236 CLINIC PROGRESS NOTE DATE OF [...] counseling OBJECTIVE: ASSESSMENT: PLAN: CC: CRISTINA Steele AET:[id number] C: 08/26/08 14:37 CONFIRM #: [id number] P CUTTER documented in this encounter Plan of Treatment Not on filedocumented as of this encounter Visit Diagnoses Not on filedocumented in this encounter Care Teams Brickmason Contractor Relationship Specialty Start Date End Date Hansa Lewis APRN, CARTOGRAPHY TECHNICIAN PCP - General 10/22/10 11/30/12 [address] [address] [place] [address] documented as of this encounter
--- OUTSIDE RECORDS SUMMARY | 2022-06-28 09:01 | XMS_ITS | Encounter Summary ---
:1960 Author Organization [employer] Address [address] [place] [address] Care Team Providers Name Role Phone Hansa Lewis APRN, CNP Primary Care Provider [phone] Reason for Visit Reason Comments Other Encounter Details Date Type Department Care Team Description 05/27/2008 Telephone [facility], Message Other [address] [place] [address] Social History Tobacco Use Types Packs/Day Years Used Date Smoking Tobacco: Never Assessed Sex Assigned at Date Recorded Not on file documented as of this encounter Progress Notes Center, Message - 05/27/2008 10:24 AM CST Phone Note filed by Electronic Brailler at 11/09/10 1021 Author: Electronic Brailler Service: (none) Author Type: (none) Filed: 11/09/10 4264 Note Time: 05/27/08 1024 Status: Signed Catalog Library Assistant: Electronic Brailler Lab/Radiology Requests Caller Name/Relationship: Veronica/ Primary Cloth Presser: Joshua What test is needed and when? [...] above *If symptom related, send to triage Global President: Veronica Best call back number: [phone] Is it OK to leave a confidential [...] lab Acknowledged by AVTAR FABIAN on 2:00pm K 9 HANDLER/ DEPUTY documented in this encounter Plan of Treatment Not on filedocumented as of this encounter Visit Diagnoses Not on filedocumented in this encounter Care Teams Engineering Mechanic Relationship Specialty Start Date End Date Hansa Lewis APRN, ASSEMBLER HYDRAULIC BACKHOE PCP - General 10/22/10 11/30/12 [address] [place] [address] documented as of this encounter
--- OUTSIDE RECORDS SUMMARY | 2022-06-28 09:01 | XMS_ITS | Encounter Summary ---
:1960 Author Organization [employer] Address [address], [place] [address] Care Team Providers Name Role Phone Hansa Lewis APRN, CNP Primary Care Provider [phone] Encounter Details Date Type Department Care Team Description 05/19/2008 Office Visit Telephone Internal Hansa Lewis APRN, [facility] [address] [address] [place] [address] [place] [address] [phone] (Wo rk) Social History Tobacco Use Types [...] Body Mass Index 23 06/06/2007 8:21 AM IRON BENDER documented in this encounter Progress Notes Hansa Lewis APRN, HOTEL MANAGER - 05/19/2008 12:01 AM CDT Progress Notes signed by CRISTINA Steele at 06/15/08 1114 Author: CRISTINA Steele Service: (none) Author Type: (none) Filed: 11/11/10 0810 Note Time: 05/19/08 0001 Status: Signed Chief Science Officer: CRISTINA Steele (Nurse Practitioner) NAME: JOSH MOSLEY MR#: [id number] ACCT: [id number] VISIT: [id number] DICTATING CLINICIAN: CRISTINA Steele CONFIRM #: [id number] LOC: 506 CLINIC PROGRESS NOTE DATE OF VISIT: 05/19/2008 SUBJECTIVE: : 1960. 48-year-old gentleman in clinic today to follow up on a number of concerns. 1. Previously noted in 07/2007 to have impaired fasting glucose. He spoke with the handcrew foreman and has had a 35-pound weight loss [...] not need to follow up with the baby counselor. At the time that this evaluation was [...] in a maternal uncle who had an UT at 42, and his mother who at age 62 of UT. No family history of diabetes or cancer [...] medication adjustment or consultation. PLAN: See assessment. LAE:[id number] C: 05/19/08 14:14 CONFIRM #: [id number] BENDER documented in this encounter Plan of Treatment Not on filedocumented as of this encounter Visit Diagnoses Not on filedocumented in this encounter Care Teams Farm Equipment Mechanic Relationship Specialty Start Date End Date Hansa Lewis, DELMA, HOTEL MANAGER PCP - General 10/22/10 11/30/12 [address] [place] [address] documented as of this encounter
--- OUTSIDE RECORDS SUMMARY | 2022-06-28 09:01 | XMS_ITS | Encounter Summary ---
:1960 Author Organization [employer] Address [address] [place] [address] Care Team Providers Name Role Phone Hansa Lewis YARED NGUYỄN Primary Care Provider [phone] Reason for Visit Reason Comments Other Encounter Details Date Type Department Care Team Description 08/02/2008 Telephone [facility] [address] [facility]ph[facility] Center, Message Other [address] [place] [address] Social History Tobacco Use Types Packs/Day Years Used Date Smoking Tobacco: Never Assessed Sex Assigned at Date Recorded Not on file documented as of this encounter Progress Notes Rubén Fabian LPN - 08/02/2008 10:59 AM CST Phone Note filed by Rubén Fabian LPN at 11/09/10 1433 Author: Rubén Fabian LPN Service: (none) Author Type: (none) Filed: 11/09/10 1433 Note Time: 08/02/081058 Status: Signed Shook Machine Operator: Jacquelyn Colin Veronica patient calling and wants to know if you want to do biopsy on patient .# [phone] Created on 02Aug2008 10:59am by RUBÉN FABIAN [...] her and mailed to patient home also. FIC MAINTENANCE SUPERVISOR documented in this encounter Plan of Treatment Not on filedocumented as of this encounter Visit Diagnoses Not on filedocumented in this encounter Care Teams Bleach Boiler Packer Relationship Specialty Start Date End Date Hansa Lewis APRN, TOP CLOSER PCP - General 10/22/10 11/30/12 [address] [place] [address] documented as of this encounter
--- OUTSIDE RECORDS SUMMARY | 2022-06-28 09:01 | XMS_ITS | Encounter Summary ---
:1960 Author Organization [employer] Address [address] [place] [address] Care Team Providers Name Role Phone LiliaHuseyin churchjoao NGUYỄN CNP Primary Care Provider [phone] Encounter Details Date Type Department Care Team Description 09/09/2009 PN Conversion Only [place] [address] [address] [address] [place], [place] [address] (Wo rk) Social History Tobacco Use Types Packs/Day Years Used Date Smoking Tobacco: Never Assessed Sex Assigned at Date Recorded Not on file documented as of this encounter Plan of Treatment Not on filedocumented as of this encounter Procedures Procedure Name Priority Date/Time Associated Comments Diagnosis VITAMIN D 25 OH Routine 09/09/2009 12:12 Results for this PM PLATE INSPECTOR procedure are i n the results section. LIPID PANEL AND Routine 09/09/2009 12:12 Results for this DIRECT LDL(IF NEEDED) PM PLATE INSPECTOR proced ure are in the results section. INTACT PTH Routine 09/09/2009 12:12 Results for this PM PLATE INSPECTOR procedure are i n the results section. CREATININE / GFR Routine 09/09/2009 12:12 Results for this PM PLATE INSPECTOR procedure are i n the results section. COMPLETE BLOOD Routine 09/09/2009 12:12 Results f or this COUNT-NO DIFF PM PLATE INSPECTOR procedure are in the results section. ELECTROLYTE PANEL Routine 09/09/2009 12:12 Result s for this PM PLATE INSPECTOR procedure are i n the results section. PROTEIN, TOTAL Routine 09/09/2009 12:12 Results f or this (SERUM) PM PLATE INSPECTOR procedure are i n the results section. PHOSPHORUS Routine 09/09/2009 12:12 Results for this PM PLATE INSPECTOR procedure are i n the results section. CALCIUM Routine 09/09/2009 12:12 Results for this PM PLATE INSPECTOR procedure are i n the results section. BUN Routine 09/09/2009 12:12 Results for this PM PLATE INSPECTOR procedure are i n the results section. ALBUMIN Routine 09/09/2009 12:12 Results for this PM PLATE INSPECTOR procedure are i n the results section. documented in this encounter Results Intact PTH (09/09/2009 12:12 PM PLATE INSPECTOR) athologist Signature PTH 62 10 - 100 HP CONVERSION pg/mL Specimen (Source) Anatomical Collection Method Collection Time Re ceived Time Location / / Volume Laterality 09/09/2009 12:12 PM PLATE INSPECTOR Terrence Hernandez MD LAB_1 Performing Organization Address City/State/ZIP Code Phon e Number HP CONVERSION VITAMIN D 25 OH (09/09/2009 12:12 PM PLATE INSPECTOR) athologist Signature Vitamin D 25 Oh 38 [...] Greater than 150 ng/m L Performed at [facility] [address] [place] [address] 8410 8 Specimen (Source) Anatomical Collection Method Collection Time Re ceived Time Location / / Volume Laterality 09/09/2009 12:12 PM PLATE INSPECTOR Terrence Hernandez MD LAB_1 Performing Organization Address City/State/ZIP Code Phon e Number HP CONVERSION Hemogram/Plts (09/09/2009 12:12 PM PLATE INSPECTOR) athologist Signature White Blood Cell 6.6 3.8 [...] - HP CONVERSION Hemoglobin Conc 36.5 gm/dL [place] RDW 12.5 11.0 - HP CONVERSION 15.0 % Platelet Count 301 140 - 450 HP CONVERSION k/cmm Specimen (Source) Anatomical Collection Method Collection Time Re ceived Time Location / / Volume Laterality 09/09/2009 12:12 PM PLATE INSPECTOR Terrence Hernandez MD LAB_1 Performing Organization Address City/[facility]/ZIP Code Phon e Number HP CONVERSION (ABNORMAL) Lipid Panel and Direct LDL(If Needed) (09/09/2009 12:12 PM PLATE INSPECTOR) [facility] Method Time Signature Length Of Fast [...] / / Volume Laterality 09/09/2009 12:12 PM PLATE INSPECTOR Terrence Hernandez MD LAB_1 Performing Organization Address City/State/ZIP Code Phon e Number HP CONVERSION Electrolyte Panel (09/09/2009 12:12 PM PLATE INSPECTOR) P athologist Signature Sodium 143 137 - 147 HP CONVERSION mEq/L Potassium 5.0 3.5 - 5.2 HP CONVERSION mEq/L Chloride 104 98 - 110 HP CONVERSION mEq/L Bicarbonate 29 23 - 33 HP CONVERSION mmol/L Specimen (Source) Anatomical Collection Method Collection Time Re ceived Time Location / / Volume Laterality 09/09/2009 12:12 PM PLATE INSPECTOR Terrence Hernandez MD LAB_1 Performing Organization Address City/State/ZIP Code Phon e Number HP CONVERSION Protein, Total (Serum) (09/09/2009 12:12 PM PLATE INSPECTOR) athologist Signature Protein Total, 7.3 5.7 - 8.3 HP CONVERSION Serum gm/dL Specimen (Source) Anatomical Collection Method Collection Time Re ceived Time Location / / Volume Laterality 09/09/2009 12:12 PM PLATE INSPECTOR Terrence Hernandez MD LAB_1 Performing Organization Address [facility] Phon e Number HP CONVERSION Phosphorus (09/09/2009 12:12 PM PLATE INSPECTOR) athologist Signature Phosphorus 3.8 2.5 - 4.5 HP CONVERSION Serum mg/dL Specimen (Source) Anatomical Collection Method Collection Time Re ceived Time Location / / Volume Laterality 09/09/2009 12:12 PM PLATE INSPECTOR Terrence Hernandez MD LAB_1 Performing Organization Address [facility] Phon e Number HP CONVERSION Creatinine / GFR (09/09/2009 12:12 PM PLATE INSPECTOR) athologist Signature Creatinine 1.2 0.4 - 1.3 HP CONVERSION Serum mg/dL Est GFR >60 >60 HP CONVERSION Am Comment: -Fijian and Moi-Cstdpvt-Vpnkauk n reference range units: mL/min/1.73m2 Normal>60, moderate decrease 30 - 59, se alexia decrease 15 - 29, renal failure <15 mL/min/1.73 m2 NOTE: Choose the eGFR result above appro priate for the race of the patient. Est GFR Non-Afr Am >60 >60 HP CONVERSI ON Specimen (Source) Anatomical Collection Method Collection Time Re ceived Time Location / / Volume Laterality 09/09/2009 12:12 PM PLATE INSPECTOR Terrence Hernandez MD LAB_1 Performing Organization Address City/[facility]/ZIP Code Phon e Number HP CONVERSION Calcium (09/09/2009 12:12 PM PLATE INSPECTOR) athologist Signature Calcium 10.1 8.5 - 10.5 HP CONVERSION mg/dL Specimen (Source) Anatomical Collection Method Collection Time Re ceived Time Location / / Volume Laterality 09/09/2009 12:12 PM PLATE INSPECTOR Terrence Hernandez MD LAB_1 Performing Organization Address City/State/ZIP Code Phon e Number HP CONVERSION BUN (09/09/2009 12:12 PM PLATE INSPECTOR) athologist Signature Blood Urea 20 5 - 26 HP CONVERSION Nitrogen mg/dL Specimen (Source) Anatomical Collection Method Collection Time Re ceived Time Location / / Volume Laterality 09/09/2009 12:12 PM PLATE INSPECTOR Terrence Hernandez MD LAB_1 Performing Organization Address City/State/ZIP Code Phon e Number HP CONVERSION Albumin (09/09/2009 12:12 PM PLATE INSPECTOR) athologist Signature Albumin 4.8 3.4 - 5.0 HP CONVERSION g/dL Specimen (Source) Anatomical Collection Method Collection Time Re ceived Time Location / / Volume Laterality 09/09/2009 12:12 PM PLATE INSPECTOR Terrence Hernandez MD LAB_1 Performing Organization Address City/State/ZIP Code Phon e Number HP CONVERSION documented in this encounter Visit Diagnoses Not on filedocumented in this encounter Care Teams Manufacturing Helper Relationship Specialty Start Date End Date Hansa Lewis APRN, KNOCKDOWN WORKER PCP - General 10/22/10 11/30/12 [address] [place] [address] documented as of this encounter
--- OUTSIDE RECORDS SUMMARY | 2022-06-28 09:01 | XMS_ITS | Encounter Summary ---
:1960 Author Organization [employer] Address [address] [place] [address] Care Team Providers Name Role Phone Hansa Lewis YARED NGUYỄN Primary Care Provider [phone] Encounter Details Date Type Department Care Team Description 09/17/2008 PN Conversion Only [place] [address] [address] [address] [place], [place] [address] (Wo rk) Social History Tobacco Use Types Packs/Day Years Used Date Smoking Tobacco: Never Assessed Sex Assigned at Date Recorded Not on file documented as of this encounter Plan of Treatment Not on filedocumented as of this encounter Procedures Procedure Name Priority Date/Time Associated Comments Diagnosis ELECTROLYTES (NA, K, Routine 09/17/2008 10:14 Res ults for this CL, BICARB) AM TWINE REELING MACHINE OPERATOR procedure are i n the results section. CREATININE / GFR Routine 09/17/2008 10:14 Results for this AM TWINE REELING MACHINE OPERATOR procedure are i n the results section. CALCIUM Routine 09/17/2008 10:14 Results for this AM TWINE REELING MACHINE OPERATOR procedure are i n the results section. BUN Routine 09/17/2008 10:14 Results for this AM TWINE REELING MACHINE OPERATOR procedure are i n the results section. documented in this encounter Results BUN (09/17/2008 10:14 AM TWINE REELING MACHINE OPERATOR) P athologist Signature Blood Urea 18 5 - 26 HP CONVERSION Nitrogen mg/dL Specimen (Source) Anatomical Collection Method Collection Time Re ceived Time Location / / Volume Laterality 09/17/2008 10:14 AM TWINE REELING MACHINE OPERATOR Terrence Hernandez MD LAB_1 Performing Organization Address City/[facility]/ZIP Code Phon e Number HP CONVERSION Calcium (09/17/2008 10:14 AM TWINE REELING MACHINE OPERATOR) P athologist Signature Calcium 10.0 8.5 - 10.5 HP CONVERSION mg/dL Specimen (Source) Anatomical Collection Method Collection Time Re ceived Time Location / / Volume Laterality 09/17/2008 10:14 AM TWINE REELING MACHINE OPERATOR Terrence Hernandez MD LAB_1 Performing Organization Address [facility] Phon e Number HP CONVERSION (ABNORMAL) Creatinine / GFR (09/17/2008 10:14 AM TWINE REELING MACHINE OPERATOR) [facility] Time Signature Creatinine 1.5 (H) 0.4 - 1.3 HP CONVERSION Serum mg/dL Est GFR >60 >60 HP CONVERSION Am Comment: -St Helenian and Lzy-Wqvyjur-Lhknsme n reference range units: mL/min/1.73m2 Normal>60, moderate [...] / / Volume Laterality 09/17/2008 10:14 AM TWINE REELING MACHINE OPERATOR Terrence Hernandez MD LAB_1 Performing Organization Address [facility] Phon e Number HP CONVERSION Electrolytes (NA, K, CL, Bicarb) (09/17/2008 10:14 AM TWINE REELING MACHINE OPERATOR) P athologist Signature Sodium 139 137 - 147 HP CONVERSION mEq/L Potassium 4.6 3.5 - 5.2 HP CONVERSION mEq/L Chloride 104 98 - 110 HP CONVERSION mEq/L Bicarbonate 32 23 - 33 HP CONVERSION mmol/L Specimen (Source) Anatomical Collection Method Collection Time Re ceived Time Location / / Volume Laterality 09/17/2008 10:14 AM TWINE REELING MACHINE OPERATOR Terrence Hernandez MD LAB_1 Performing Organization Address [facility] Phon e Number HP CONVERSION documented in this encounter Visit Diagnoses Not on filedocumented in this encounter Care Teams Garage Door Technician Relationship Specialty Start Date End Date Hansa Lewis APRN, TOOL TURRET LATHE SET UP OPERATOR PCP - General 10/22/10 11/30/12 [address] [address] [place] [address] documented as of this encounter
--- OUTSIDE RECORDS SUMMARY | 2022-06-28 09:01 | XMS_ITS | Encounter Summary ---
:1960 Author Organization [employer] Address [address] [place] [address] Care Team Providers Name Role Phone Unassigned, Provider Primary Care Provider Unavailable Encounter Details Date Type Department Care Team Description 08/19/2008 Hospital Encounter Heart & Vascular Eva Hernandez MD [address] [place] [address] Center Procedural Ar Eva Gudino MD [address] [facility] [address] [place] [address] [place] [address] Social History Tobacco Use Types [...] 1027 Note Time: 08/19/08 0830 Status: Signed Local Company Truck Driver: Eva Hernandez MD (Physician) NAME: BRYCE MOSLEY MR#: [id number] ACCT: [id number] AUTHENTICATING CLINICIAN: Eva Hernandez MD CONFIRM #: [id number] LOC: 1 PROCEDURE REPORT : 1960 Mr. [...] the small incision site. CC: CRISTINA Steele AET:[id number] C: 08/19/08 08:56 CONFIRM #: [id number] MINER documented in this encounter Miscellaneous Notes Miscellaneous - [facility] - 08/19/2008 12:01 AM CST ICD-9-CM ICD-9-CM Narrative description Code ======== DIAGNOSES Principal: ACUTE RENAL FAILURE NOS 584.9 PROCEDURES Provider1 Date Principal: PERCUTAN RENAL BIOPSY 55.23 Provider2: Provider3: documented in this encounter Plan of Treatment Not on filedocumented as of this encounter Procedures Procedure Name Priority Date/Time Associated Comments Diagnosis US BX RENAL - Routine 08/19/2008 8:26 AM Results for this RADIOLOGIST GOLD MINER procedure are i n the results section. SURGICAL PATHNOE Routine 08/19/2008 8:24 AM Shu nascimentots for this NICOLLET GOLD MINER procedure are i n the results section. ADDENDUM REPORT Routine 08/19/2008 8:24 AM Result s for this GOLD MINER procedure are i n the results section. documented in this encounter Results US Bx Renal - Radiologist (08/19/2008 8:26 AM GOLD MINER) Anatomical Region Laterality Modality Abdomen Other Specimen (Source) Anatomical Location Collection Method / Collectio n Time Received Time / Laterality Volume Narrative 08/19/2008 8:26 AM GOLD MINER URP See physicians report in LastWord using command TRXALL. Dictating EVA FRANKS Procedure Note Eva Hernandez - 09/22/2016 URP See physicians report in LastWord using command TRXALL. Dictating EVA FRANKS Eva MOHAMUD US Pathology Report (08/19/2008 8:24 AM GOLD MINER) [facility] Method Time Signature Surgical SEE TEXT No normal HP CONVERSION Pathology range Comment: Patient: BRYCE MOSLEY ?S URGICAL PATHOLOGY REPORT Pathology # ??[id number] ?Date Obtained: ? Date Received: DIAGNOSIS: ?Right kidney biopsy: ?- Forwarded to [facility] for further analysis, an ?addendum will be issued when th e results are received. ?Stefany Lebron M.D. ?(electronic signature) SHB/SHB/kjs Date of Report: 08/20/08 Pathology # ??[id number] ?Date Obtained: ? Date Received: ORGAN/TISSUE SITE: [...] fixative. The spec imen is sent to [facility]. AMW/kjs Specimen (Source) Anatomical Collection Method Collection Time Re ceived Time Location / / Volume Laterality 08/19/2008 8:24 AM GOLD MINER Eva Hernandez MD LAB_1 Performing Organization Address City/State/ZIP Code Phon e Number HP CONVERSION Addendum Report (08/19/2008 8:24 AM GOLD MINER) athologist Signature Addendum SEE TEXT No normal HP CONVERSION range Comment: Patient: BRYCE MOSLEY ? SURGICAL PATHOLOGY SUPPLEMENTAL REPORT Pathology # ??[id number] ?Date Obtained: ? Date Received: ADDENDUM: ? RENAL BIOPSY REPORT DOCTOR: ?Molly Ayon M.D. INSTITUTION: [facility] THEIR #: ? [id number] FINAL DIAGNOSIS: ?Kidney, right, biopsy: ?- Minimal [...] / / Volume Laterality 08/19/2008 8:24 AM GOLD MINER Eva Hernandez MD LAB_1 Performing Organization Address City/State/ZIP Code Phon e Number HP CONVERSION documented in this encounter Visit Diagnoses Not on filedocumented in this encounter Care Teams Salesperson Household Appliances Relationship Specialty Start Date End Date Unassigned, Provider PCP - General 06/29/00 10/21/[address] [place] [address] documented as of this encounter
--- OUTSIDE RECORDS SUMMARY | 2022-06-28 09:01 | XMS_ITS | Encounter Summary ---
:1960 Author Organization [employer] Address [address], [place] [address] Care Team Providers Name Role Phone Hansa Lewis YARED NGUYỄN Primary Care Provider [phone] Encounter Details Date Type Department Care Team Description 07/26/2008 Office Visit Specialty Center [address] [place] Hernandez MD Nephrology [address] [facility] [address] [facility] [address] [place] [address] [id number] [phone] Social History Tobacco Use Types Packs/Day Years Used Date Smoking Tobacco: Never Assessed Sex Assigned at Date Recorded Not on file documented as of this encounter Last Filed Vital Signs Vital Sign Reading Time Taken Comments Blood Pressure 122/68 07/26/2008 2:24 PM BAND SINGER Pulse 62 07/26/2008 2:24 PM BAND SINGER Temperature - - Respiratory Rate - - Oxygen Saturation - - Inhaled Oxygen Concentration - - Weight 79.8 kg (176 lb 0.2 oz) 07/26/2008 2:24 PM C: 79 .8kg BAND SINGER Height 184.2 cm (6' 0.5) 07/26/2008 2:24 PM C: 184.2cm BAND SINGER Body Mass Index 23.54 07/26/2008 2:24 PM BAND SINGER documented in this encounter Progress Notes Terrence Hernandez MD - 07/26/2008 12:01 AM CST Progress Notes signed by Terrence Hernandez MD at 07/30/08 1009 Author: Terrence Hernandez MD Service: (none) Author Type: Physician Filed: 11/11/10 0950 Note Time: 07/26/08 0001 Status: Signed Senior Quality Control Inspector: Terrence Hernandez MD (Physician) NAME: JOSH MOSLEY MR#: [id number] ACCT: [id number] VISIT: [id number] DICTATING CLINICIAN: Terrence Hernandez MD CONFIRM #: [id number] LOC: 236 CLINIC PROGRESS NOTE DATE OF [...] and 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 However, he did not actually see the bottle inspector, at least I do not see any [...] her early 60s, his mother of an [place], his father of prostate cancer and lung [...] infection. PLAN: See assessment. CC: CRISTINA Steele AET:[id number] C: 07/27/08 11:16 CONFIRM #: [id number] SINGER documented in this encounter Plan of Treatment Not on filedocumented as of this encounter Visit Diagnoses Not on filedocumented in this encounter Care Teams Dialysis Social Worker Relationship Specialty Start Date End Date Hansa Lewis APRN, DIESEL ENGINE PIPE FITTER PCP - General 10/22/10 11/30/12 [address] [place] [id number] documented as of this encounter
--- OUTSIDE RECORDS SUMMARY | 2022-06-28 09:01 | XMS_ITS | Encounter Summary ---
:1960 Author Organization [employer] Address [address] [place] [address] Care Team Providers Name Role Phone Hansa Lewis YARED NGUYỄN Primary Care Provider [phone] Encounter Details Date Type Department Care Team Description 03/07/2009 Office Visit [facility] 3931 Newton Hernandez MD Nephrology [address] [place] [address] [facility] [address] [place] [address] [id number] [phone] Social History Tobacco Use Types Packs/Day Years [...] Body Mass Index 23.94 07/26/2008 2:24 PM FOREST BOTANY INSTRUCTOR documented in this encounter Progress Notes Terrence Hernandez MD - 03/07/2009 12:01 AM CDT Progress Notes signed by Terrence Hernandez MD at 03/30/09 1023 Author: Terrence Hernandez MD Service: (none) Author Type: Physician Filed: 11/11/10 1539 Note Time: 03/07/09 0001 Status: Signed Fireproof Door Assembler: Terrence Hernandez MD (Physician) NAME: JOSH MOSLEY MR#: [id number] ACCT: [id number] VISIT: [id number] DICTATING CLINICIAN: Terrence Hernandez MD CONFIRM #: [id number] LOC: 236 CLINIC PROGRESS NOTE DATE OF [...] supplementation in his diet. CC: CRISTINA Steele AET:[id number] C: 03/08/09 08:23 CONFIRM #: [id number] documented in this encounter Plan of Treatment Not on filedocumented as of this encounter Visit Diagnoses Not on filedocumented in this encounter Care Teams Track Superintendent Relationship Specialty Start Date End Date Hansa Lewis APRN, PORCELAIN ENAMELING SUPERVISOR PCP - General 10/22/10 11/30/12 [address] [place] [address] documented as of this encounter
--- OUTSIDE RECORDS SUMMARY | 2022-06-28 09:01 | XMS_ITS | Encounter Summary ---
:1960 Author Organization [facility] Address [address], [place] [address] Care Team Providers Name Role Phone Hansa Lewis APRN, CNP Primary Care Provider [phone] Encounter Details Date Type Department Care Team Description 07/06/2008 PN Conversion Only [place] [facility] Hansa Lewis APRN, [address] [place] [address] [facility] [address] [place], [place] [address] (Wo rk) Social History Tobacco Use Types Packs/Day Years Used Date Smoking Tobacco: Never Assessed Sex Assigned at Date Recorded Not on file documented as of this encounter Plan of Treatment Not on filedocumented as of this encounter Procedures Procedure Name Priority Date/Time Associated Diagnosis Comme nts POTASSIUM Routine 07/06/2008 4:19 PM Results f or this WELDER FITTER APPRENTICE procedure are i n the results section . documented in this encounter Results Potassium (07/06/2008 4:19 PM WELDER FITTER APPRENTICE) athologist Signature Potassium 4.6 3.5 - 5.2 HP CONVERSION mEq/L Specimen (Source) Anatomical Collection Method Collection Time Re ceived Time Location / / Volume Laterality 07/06/2008 4:19 PM WELDER FITTER APPRENTICE Hansa Lewis APRN, CNP LAB_1 Performing Organization Address City/State/ZIP Code Phon e Number HP CONVERSION documented in this encounter Visit Diagnoses Not on filedocumented in this encounter Care Teams Trade Mark Examiner Relationship Specialty Start Date End Date Hansa Lewis APRN, RETIREMENT MANAGER PCP - General 10/22/10 11/30/[address] [place], [place] [address] documented as of this encounter
--- OUTSIDE RECORDS SUMMARY | 2022-06-28 09:01 | XMS_ITS | Encounter Summary ---
:1960 Author Organization [employer] Address [address] [place] [address] Care Team Providers Name Role Phone Hansa Leiws APRN, [facility] Primary Care Provider [phone] Encounter Details Date Type Department Care Team Description 05/28/2008 PN Conversion Only [place] [facility] Hansa Lewis APRN, [address] [place] [address] [address] [facility] [address] [place], [place] [address] (Wo rk) Social History Tobacco Use Types Packs/Day Years Used Date Smoking Tobacco: Never Assessed Sex Assigned at Date Recorded Not on file documented as of this encounter Plan of Treatment Not on filedocumented as of this encounter Procedures Procedure Name Priority Date/Time Associated Diagnosis Comme nts CREATININE / GFR Routine 05/28/2008 2:24 PM Resul ts for this HEALTH EDUCATION DIRECTOR procedure are i n the results section. documented in this encounter Results (ABNORMAL) Creatinine / GFR (05/28/2008 2:24 PM HEALTH EDUCATION DIRECTOR) Analysis Performed At Patho logist Time Signature Creatinine 1.5 (H) 0.4 - 1.3 HP CONVERSION Serum mg/dL Est GFR >60 >60 HP CONVERSION Am Comment: -Russian and Jyh-Ayyqkuw-Bkjiqsh n reference range units: mL/min/1.73m2 Normal>60, moderate decrease 30 - 59, se alexia decrease 15 - 29, renal failure <15 mL/min/1.73 m2 Est GFR Non-Afr Am 50 (L) >60 HP CONVERSI ON Specimen (Source) Anatomical Collection Method Collection Time Re ceived Time Location / / Volume Laterality 05/28/2008 2:24 PM HEALTH EDUCATION DIRECTOR Hansa Lewis APRN, CNP LAB_1 Performing Organization Address City/State/ZIP Code Phon e Number HP CONVERSION documented in this encounter Visit Diagnoses Not on filedocumented in this encounter Care Teams Procurement Professional Logistics Relationship Specialty Start Date End Date Hansa Lewis APRN, CNP PCP - General 10/22/10 11/30/[address] [place] [address] documented as of this encounter
--- OUTSIDE RECORDS SUMMARY | 2022-06-28 09:01 | XMS_ITS | Encounter Summary ---
:1960 Author Organization [employer] Address [address] [place] [address] Care Team Providers Name Role Phone Adelaida Lewiserica NGUYỄN CNP Primary Care Provider [phone] Encounter Details Date Type Department Care Team Description 03/02/2009 PN Conversion Only [place] [address] [address] [address] [place], [place] [address] (Wo rk) Social History Tobacco Use Types [...] (03/02/2009 2:05 PM CDT) Analysis Performed At [facility] logist Time Signature Creatinine 1.5 (H) 0.4 - 1.3 HP CONVERSION Serum mg/dL Est GFR >60 >60 HP CONVERSION Am Comment: -Gambian and Ezo-Jjgzlfs-Zfmkefj n reference range units: mL/min/1.73m2 Normal>60, moderate [...] Terrence Hernandez MD LAB_1 Performing Organization Address City/[facility]/ZIP Code Phon e Number HP CONVERSION Phosphorus (03/02/2009 2:05 PM CDT) athologist Signature Phosphorus 4.4 2.5 - 4.5 HP CONVERSION Serum mg/dL Specimen (Source) Anatomical Collection Method Collection Time Re ceived Time Location / / Volume Laterality 03/02/2009 2:05 PM CDT Terrence Hernandez MD LAB_[address] [facility] Code Phon e Number HP CONVERSION Protein, Total (Serum) (03/02/2009 2:05 PM CDT) athologist Signature Protein Total, 7.6 5.7 - 8.3 HP CONVERSION Serum gm/dL Specimen (Source) Anatomical Collection Method Collection Time Re ceived Time Location / / Volume Laterality 03/02/2009 2:05 PM CDT Terrence Hernandez MD LAB_[address] [facility] Code Phon e Number HP CONVERSION [...] Terrence Hernandez MD LAB_1 Performing Organization Address City/[facility]/ZIP Code Phon e Number HP CONVERSION [...] ??Greater than 80 ng/ mL Performed at [facility] [address] [place] [address] 8 Specimen (Source) Anatomical Collection Method Collection Time Re ceived Time Location / / Volume Laterality 03/02/2009 2:05 PM CDT Terrence Hernandez MD LAB_1 Performing Organization Address City/[facility] Phon e Number HP CONVERSION Intact PTH (03/02/2009 2:05 PM CDT) athologist Signature PTH 57 10 - 100 HP CONVERSION pg/mL Specimen (Source) Anatomical Collection Method Collection Time Re ceived Time Location / / Volume Laterality 03/02/2009 2:05 PM CDT Terrence Hernandez MD LAB_1 Performing Organization Address City/[facility] Phon e Number HP CONVERSION documented in this encounter Visit Diagnoses Not on filedocumented in this encounter Care Teams District Resource Officer Relationship Specialty Start Date End Date Hansa Lewis, [employer] SPANISH TEACHER, MEDICAID PLAN COMPLIANCE DIRECTOR PCP - General 10/22/10 11/30/12 [address] [place] [address] documented as of this encounter
--- OUTSIDE RECORDS SUMMARY | 2022-06-28 09:01 | XMS_ITS | Encounter Summary ---
:1960 Author Organization [employer] Address [address], [place] [address] Care Team Providers Name Role Phone Hansa Lewis APRN, CNP Primary Care Provider [phone] Reason for Visit Reason Comments Other Encounter Details Date Type Department Care Team Description 07/23/2008 Telephone [facility] Adelaida Lewis APRN, CNP Other Medicine [address] [facility] [address] [place] [address] [place] [address] [phone] Social History Tobacco Use Types Packs/Day Years Used Date Smoking Tobacco: Never Assessed Sex Assigned at Date Recorded Not on file documented as of this encounter Progress Reynold Mcdonough - 07/23/2008 11:00 AM CST Phone Note filed by Reynold Johnson RN at 11/09/10 4685 Author: Reynold Johnson RN Service: (none) Author Type: Registered Nurse Filed: 11/09/10 8934 Note Time: 07/23/08 1100 Status: Signed Pencils Washer: Reynold Johnson RN (Registered Nurse) An evaluation has been requested for this patient in the department of:Nephrology PLEASE INDICATE IF THIS IS FOR: Consult (request opinion) Reason/Indication is REQUIRED: This may include treatment if appropriate. OR Take over care (referral) Reason/Indication is REQUIRED: Please send response to (provider name / LW#):Terrence Gonzalez22 The new Medicare guidelines for consultation services [...] 07/06 Acknowledged by HANSA LEWIS on 11:37am SPRAYER documented in this encounter Plan of Treatment Not on filedocumented as of this encounter Visit Diagnoses Not on filedocumented in this encounter Care Teams Virtual Customer Assistant Relationship Specialty Start Date End Date Hansa Lewis APRN, SAFETY DIRECTOR PCP - General 10/22/10 11/30/12 [address] [address] documented as of this encounter
--- OUTSIDE RECORDS SUMMARY | 2022-06-28 09:01 | XMS_ITS | Encounter Summary ---
:1960 Author Organization [employer] [facility] Address [address] [place] [address] Care Team Providers Name Role Phone Hansa Lewis APRN, YARED Primary Care Provider [phone] Encounter Details Date Type Department Care Team Description 05/19/2008 PN Conversion Only [place] [facility] [facility] Hansa Lewis APRN, [address] [place] [address] [facility] [address] [place], [place] [address] (Wo rk) Social History [...] Alkaline Phosphatase, Total (05/19/2008 9:09 AM CDT) athologist Signature Alk Phos 66 25 - 135 U/L HP CONVERSION Specimen (Source) Anatomical Collection Method Collection Time Re ceived Time Location / / Volume Laterality 05/19/2008 9:09 AM CDT Hansa Rodrigueslynnette NGUYỄN CNP LAB_1 Performing Organization Address [facility]/ZIP Code Phon e Number HP CONVERSION AST (05/19/2008 9:09 AM CDT) [facility] gist Method Time Signature Aspartate 20 0 - 45 HP CONVERSION Aminotransferase U/L Specimen (Source) Anatomical Collection Method Collection Time Re ceived Time Location / / Volume Laterality 05/19/2008 9:09 AM CDT Hansa Rodrigueslynnette NGUYỄN CNP LAB_1 Performing Organization Address City/[facility]/ZIP Code Phon e Number HP CONVERSION ALT (SGPT) (05/19/2008 9:09 AM CDT) [facility] gist Method Time Signature Alanine 21 4 - 55 HP CONVERSION Aminotransferase U/L Specimen (Source) Anatomical Collection Method Collection Time Re ceived Time Location / / Volume Laterality 05/19/2008 9:09 AM CDT Hansa Lewis APRYARED Ma LAB_1 Performing Organization Address [facility]/ZIP Code Phon e Number HP CONVERSION (ABNORMAL) Bilirubin, Total (05/19/2008 9:09 AM CDT) P athologist Signature Bilirubin 1.4 (H) 0.2 - 1.2 HP CONVERSION Total mg/dL Specimen (Source) Anatomical Collection Method Collection Time Re ceived Time Location / / Volume Laterality 05/19/2008 9:09 AM CDT Hansa Lewis APRN, CNP LAB_1 Performing Organization Address [facility] Phon e Number HP CONVERSION BUN (05/19/2008 9:09 AM CDT) P athologist Signature Blood Urea 24 5 - 26 HP CONVERSION Nitrogen mg/dL Specimen (Source) Anatomical Collection Method Collection Time Re ceived Time Location / / Volume Laterality 05/19/2008 9:09 AM CDT Hansa Lewis APRN, CNP LAB_1 Performing Organization Address [facility] Phon e Number HP CONVERSION (ABNORMAL) Creatinine / GFR (05/19/2008 9:09 AM CDT) Analysis Performed At Patho logist Time Signature Creatinine 1.5 (H) 0.4 - 1.3 HP CONVERSION Serum mg/dL Est GFR >60 >60 HP CONVERSION Am Comment: -English and Pnb-Gymwvyp-Vnfgsbz n reference range units: mL/min/1.73m2 Normal>60, moderate decrease 30 - 59, se alexia decrease 15 - 29, renal failure <15 mL/min/1.73 m2 Est GFR Non-Afr Am 50 (L) >60 HP CONVERSI ON Specimen (Source) Anatomical Collection Method Collection Time Re ceived Time Location / / Volume Laterality 05/19/2008 9:09 AM CDT Hansa Lewis APRN, CNP LAB_1 Performing Organization Address [facility] Phon e Number HP CONVERSION (ABNORMAL) Glucose (05/19/2008 9:09 AM CDT) P athologist Signature Length Of Fast 12.0 Hours HP CONVERSION Lab Glucose 122 (H) 60 - 100 HP CONVERSION mg/dL Specimen (Source) Anatomical Collection Method Collection Time Re ceived Time Location / / Volume Laterality 05/19/2008 9:09 AM CDT Hansa Lewis APRN, CNP LAB_1 Performing Organization Address [facility] Phon e Number HP CONVERSION (ABNORMAL) [...] Lewis YARED NGUYỄN LAB_1 Performing Organization Address City/[facility] Phon e Number HP CONVERSION (ABNORMAL) [...] Lewis YARED NGUYỄN LAB_1 Performing Organization Address [facility] Phon e Number HP CONVERSION Hgb A1c (05/19/2008 9:09 AM CDT) P athologist Signature HGB A1C 5.9 <6.0 % HP CONVERSION Specimen (Source) Anatomical Collection Method Collection Time Re ceived Time Location / / Volume Laterality 05/19/2008 9:09 AM CDT Hansa Lewis YARED NGUYỄN LAB_1 Performing Organization Address City/[facility] Code Phon e Number HP CONVERSION Thyroid Stimulating [...] on filedocumented in this encounter Care Teams Show Host/Hostess Relationship Specialty Start Date End Date Hansa Lewis APRN, CNP PCP - General 10/22/10 11/30/12 [address] [address] [place] [address] documented as of this encounter
--- OUTSIDE RECORDS SUMMARY | 2022-06-28 09:01 | XMS_ITS | Encounter Summary ---
:1960 Author Organization [employer] Address [address] [place] [address] Care Team Providers Name Role Phone Hansa Lewis APRN, CNP Primary Care Provider [phone] Encounter Details Date Type Department Care Team Description 05/28/2008 Office Visit [place] [facility] Hansa Lewis APRN, [facility] [address] [address] [place] [address] [place] [address] [phone] (Wo rk) Social History Tobacco Use Types Packs/Day Years Used Date Smoking Tobacco: Never Assessed Sex Assigned at Date Recorded Not on file documented as of this encounter Last Filed Vital Signs Vital Sign Reading Time Taken Comments Blood Pressure 138/78 05/28/2008 2:54 PM INSTRUMENTATION TECHNOLOGIST Pulse 56 05/28/2008 2:54 PM INSTRUMENTATION TECHNOLOGIST Temperature - - Respiratory Rate - - Oxygen Saturation - - Inhaled Oxygen Concentration - - Weight 79.8 kg (175 lb 15.9 oz) 05/28/2008 2:54 PM INSTRUMENTATION TECHNOLOGIST C: 79.8kg Height - - Body Mass Index 23.54 06/06/2007 8:21 AM INSTRUMENTATION TECHNOLOGIST documented in this encounter Progress Notes Hansa Lewis APRN, YARED - 05/28/2008 12:01 AM CST Progress Notes signed by CRISTINA Steele at 06/15/08 1117 Author: CRISTINA Steele Service: (none) Author Type: (none) Filed: 11/11/10 0827 Note Time: 05/28/08 0001 Status: Signed Non Morse Intercept Technician: CRISTINA Steele (Nurse Practitioner) NAME: JOSH MOSLEY MR#: [id number] ACCT: [id number] VISIT: [id number] DICTATING CLINICIAN: CRISTINA Steele CONFIRM #: [id number] LOC: 506 CLINIC PROGRESS NOTE DATE OF [...] in 2 weeks. The patient in agreement. LAE:[id number] C: 06/01/08 08:00 CONFIRM #: [id number] RUMENTATION TECHNOLOGIST documented in this encounter Plan of Treatment Not on filedocumented as of this encounter Visit Diagnoses Not on filedocumented in this encounter Care Teams Application Security Architect Relationship Specialty Start Date End Date Hansa Lewis APRN, BOX MACHINE OPERATOR PCP - General 10/22/10 11/30/12 [address] [place] [address] documented as of this encounter
--- OUTSIDE RECORDS SUMMARY | 2022-06-28 09:01 | XMS_ITS | Encounter Summary ---
:1960 Author Organization [employer] Address [address] [place] [address] Care Team Providers Name Role Phone Hansa Lewis YARED NGUYỄN Primary Care Provider [phone] Encounter Details Date Type Department Care Team Description 07/26/2008 PN Conversion Only [facility] Terrence Hernandez MD [address] [place] [address] [address] [place] [address] (Wo rk) Social History Tobacco Use Types Packs/Day Years Used Date Smoking Tobacco: Never Assessed Sex Assigned at Date Recorded Not on file documented as of this encounter Plan of Treatment Not on filedocumented as of this encounter Procedures Procedure Name Priority Date/Time Associated Comments Diagnosis ELP, CASCADE, UR Routine 07/26/2008 3:27 PM Resul ts for this RANDOM [facility] procedure are i n the results section. TOTAL PROTEIN,UR Routine 07/26/2008 3:27 PM Resul ts for this RANDOM [facility] procedure are i n the results section. ELECTROLYTES (NA, K, Routine 07/26/2008 1:39 PM R esults for this CL, BICARB) [facility] procedure are i n the results section. NEUTROPHIL CYTOPLASM Routine 07/26/2008 1:39 PM R esults for this AB W/REFLEX [facility] procedure are i n the results section. VITAMIN D 25 OH Routine 07/26/2008 1:39 PM Result s for this [facility] procedure are i n the results section. TOTAL PROTEIN+ALB Routine 07/26/2008 1:39 PM Resu lts for this [facility] procedure are i n the results section. GLOMERULAR BASEMENT Routine 07/26/2008 1:39 PM Re sults for this MEMBR AB PANEL [facility] procedure are in the results section. INTACT PTH Routine 07/26/2008 1:39 PM Results f or this [facility] procedure are i n the results section. CREATININE / GFR Routine 07/26/2008 1:39 PM Resul ts for this [facility] procedure are i n the results section. ELP, CASCADE, SERUM Routine 07/26/2008 1:39 PM Re sults for this [facility] procedure are i n the results section. COMPLETE BLOOD Routine 07/26/2008 1:39 PM Results for this COUNT-NO DIFF [facility] procedure are in the results section. C4 COMPLEMENT Routine 07/26/2008 1:39 PM Results for this [facility] procedure are i n the results section. C3 COMPLEMENT Routine 07/26/2008 1:39 PM Results for this [facility] procedure are i n the results section. JHOAN SCREEN Routine 07/26/2008 1:39 PM Results f or this [facility] procedure are i n the results section. PHOSPHORUS Routine 07/26/2008 1:39 PM Results f or this [facility] procedure are i n the results section. CALCIUM Routine 07/26/2008 1:39 PM Results f or this [facility] procedure are i n the results section. BUN Routine 07/26/2008 1:39 PM Results f or this [facility] procedure are i n the results section. INR/PROTIME Routine 07/26/2008 1:39 PM Results f or this [facility] procedure are i n the results section. documented in this encounter Results ELP, Wise, Urine Random (07/26/2008 3:27 PM [facility]) Analysis Performed At Patho logist Time Signature U ELP Interp See Note No normal HP CONVERSION range Comment: No monoclonal protein identified. (CPS) Specimen (Source) Anatomical Collection Method Collection Time Re ceived Time Location / / Volume Laterality 07/26/2008 3:27 PM [facility] Terrence Hernandez MD LAB_1 Performing Organization Address City/State/ZIP Code Phon e Number HP CONVERSION Total Protein,Urine Random (07/26/2008 3:27 PM [facility]) P athologist Signature Urine Protein, 6 mg/dL HP CONVERSION Random Specimen (Source) Anatomical Collection Method Collection Time Re ceived Time Location / / Volume Laterality 07/26/2008 3:27 PM [facility] Terrence Hernandez MD LAB_1 Performing Organization Address City/[facility]/ZIP Code Phon e Number HP CONVERSION BUN (07/26/2008 1:39 PM [facility]) athologist Signature Blood Urea 20 5 - 26 HP CONVERSION Nitrogen mg/dL Specimen (Source) Anatomical Collection Method Collection Time Re ceived Time Location / / Volume Laterality 07/26/2008 1:39 PM [facility] Terrence Hernandez MD LAB_1 Performing Organization Address [facility] Phon e Number HP CONVERSION Calcium (07/26/2008 1:39 PM [facility]) athologist Signature Calcium 10.2 8.5 - 10.5 HP CONVERSION mg/dL Specimen (Source) Anatomical Collection Method Collection Time Re ceived Time Location / / Volume Laterality 07/26/2008 1:39 PM [facility] Terrence Hernandez MD LAB_1 Performing Organization Address [facility] Phon e Number HP CONVERSION (ABNORMAL) Creatinine / GFR (07/26/2008 1:39 PM [facility]) Analysis Performed At Patho logist Time Signature Creatinine 1.4 (H) 0.4 - 1.3 HP CONVERSION Serum mg/dL Est GFR >60 >60 HP CONVERSION Am Comment: -[place]ah[place]i and Uzg-Wpkgfzz-Pqmeoya n reference range units: mL/min/1.73m2 Normal>60, moderate [...] / / Volume Laterality 07/26/2008 1:39 PM [facility] Terrence Hernandez MD LAB_1 Performing Organization Address [facility] Code Phon e Number HP CONVERSION Phosphorus (07/26/2008 1:39 PM [facility]) athologist Signature Phosphorus 3.6 2.5 - 4.5 HP CONVERSION Serum mg/dL Specimen (Source) Anatomical Collection Method Collection Time Re ceived Time Location / / Volume Laterality 07/26/2008 1:39 PM [facility] Terrence Hernandez MD LAB_1 Performing Organization Address City/State/ZIP Code Phon e Number HP CONVERSION Electrolytes (NA, K, CL, Bicarb) (07/26/2008 1:39 PM [facility]) P athologist Signature Sodium 141 137 - 147 HP CONVERSION mEq/L Potassium 4.6 3.5 - 5.2 HP CONVERSION mEq/L Chloride 107 98 - 110 HP CONVERSION mEq/L Bicarbonate 26 23 - 33 HP CONVERSION mmol/L Specimen (Source) Anatomical Collection Method Collection Time Re ceived Time Location / / Volume Laterality 07/26/2008 1:39 PM [facility] Terrence Hernandez MD LAB_1 Performing Organization Address City/[facility]/ZIP Code Phon e Number HP CONVERSION Neutrophil Cytoplasm Ab W/Reflex (07/26/2008 1:39 PM [facility]) Analysis Performed At Patho logist Time Signature [...] AU/mL HP CON VERSION Comment: Performed at [facility] [address] [place] [address], [place] 84[address] 8 Specimen (Source) Anatomical Collection Method Collection Time Re ceived Time Location / / Volume Laterality 07/26/2008 1:39 PM [facility] Terrence Hernandez MD LAB_1 Performing Organization Address City/State/ZIP Code Phon e Number HP CONVERSION C3 Complement (07/26/2008 1:39 PM [facility]) athologist Signature C3 Complement 154 90 - 180 HP CONVERSION mg/dL Specimen (Source) Anatomical Collection Method Collection Time Re ceived Time Location / / Volume Laterality 07/26/2008 1:39 PM [facility] Terrence Hernandez MD LAB_1 Performing Organization Address City/State/ZIP Code Phon e Number HP CONVERSION C4 Complement (07/26/2008 1:39 PM [facility]) athologist Signature C4 Complement 37 10 - 45 HP CONVERSION mg/dL Specimen (Source) Anatomical Collection Method Collection Time Re ceived Time Location / / Volume Laterality 07/26/2008 1:39 PM [facility] Terrence Hernandez MD LAB_1 Performing Organization Address City/[facility]/ZIP Code Phon e Number HP CONVERSION (ABNORMAL) ELP, Wise, Serum (07/26/2008 1:39 PM [facility]) [facility] gist Method Time Signature Bbeuo-9-Ahtxpy 0.2 0.1 - 0.4 HP CONVERSION in gm/dL Pslto-7-Bhrflf 0.7 0.3 - 1.1 HP CONVERSION in [...] / / Volume Laterality 07/26/2008 1:39 PM [facility] Terrence Hernandez MD LAB_1 Performing Organization Address City/[facility]/ZIP Code Phon e Number HP CONVERSION Glomerular Basement Membr AB Panel (07/26/2008 1:39 PM [facility]) athologist Signature GBM IgG 0 0 - [...] and its performa nce characteristics determined by [facility]. The U.S. Food and Drug Administration has [...] and its performa nce characteristics determined by [facility]. The U.S. Food and Drug Administration has not jamie roved or cleared this test; however, FDA clearance or jamie roval is not currently required for clinical use. The results are not intended to be used as the sole means fo r clinical diagnosis or patient management decision s. Performed at [facility] [address] [place] [address] 8410 8 Specimen (Source) Anatomical Collection Method Collection Time Re ceived Time Location / / Volume Laterality 07/26/2008 1:39 PM [facility] Terrence Hernandez MD LAB_1 Performing Organization Address [facility] Code Phon e Number HP CONVERSION (ABNORMAL) Vitamin D 25 OH (07/26/2008 1:39 PM [facility]) P athologist Signature Vitamin D 25 12 (L) 30 - 80 HP CONVERSION Oh ng/mL Comment: TEST INFORMATION: VITAMIN D, 25-HYDROXY This assay accurately quantifies the sum of vitamin D3, 25-hydroxy and vitamin D2, 25-hydroxy. Deficiency: ??Less than 20 ng/mL Insufficiency: ??20-29 ng/mL Optimum Level: ??30-80 ng/mL Possible Toxicity: ??Greater than 80 ng/ mL Performed at [facility] 8 Specimen (Source) Anatomical Collection Method Collection Time Re ceived Time Location / / Volume Laterality 07/26/2008 1:39 PM [facility] Terrence Hernandez MD LAB_1 Performing Organization Address [facility] Phon e Number HP CONVERSION Complete Blood Count-No Diff (07/26/2008 1:39 PM [facility]) athologist Signature White Blood Cell 9.5 3.8 [...] - HP CONVERSION Hemoglobin Conc 36.5 gm/dL [employer] RDW 12.6 11.0 - HP CONVERSION 15.0 % Platelet Count 346 140 - 450 HP CONVERSION k/cmm Specimen (Source) Anatomical Collection Method Collection Time Re ceived Time Location / / Volume Laterality 07/26/2008 1:39 PM [facility] Terrence Hernandez MD LAB_1 Performing Organization Address [facility] Phon e Number HP CONVERSION INR/Protime (07/26/2008 1:39 PM [facility]) Analysis Performed At Patho logist Time Signature Prothrombin Time 13.0 12.6 - [...] valves in the aortic position , acute LA, valvular heart disease and atrial fibril lation. Mechanical prosthetic valves, (high risk ). ? INR 2.5-3.5 Prevention of recurrent myocardial infar ct. These recommended ranges serve as guidel nila. Adjustment outside these ranges may be clinically indicated. Specimen (Source) Anatomical Collection Method Collection Time Re ceived Time Location / / Volume Laterality 07/26/2008 1:39 PM [facility] Terrence Hernandez MD LAB_1 Performing Organization Address City/[facility]/ZIP Code Phon e Number HP CONVERSION JHOAN Screen (07/26/2008 1:39 PM [facility]) Analysis Performed At Patho logist Time Signature Anti-Nuclear Negative Negative HP CONVERSION Ab Specimen (Source) Anatomical Collection Method Collection Time Re ceived Time Location / / Volume Laterality 07/26/2008 1:39 PM [facility] Terrence Hernandez MD LAB_1 Performing Organization Address [facility]/ZIP Code Phon e Number HP CONVERSION Intact PTH (07/26/2008 1:39 PM [facility]) athologist Signature PTH 84 10 - 100 HP CONVERSION pg/mL Specimen (Source) Anatomical Collection Method Collection Time Re ceived Time Location / / Volume Laterality 07/26/2008 1:39 PM [facility] Terrence Hernandez MD LAB_1 Performing Organization Address [facility]/ZIP Code Phon e Number HP CONVERSION (ABNORMAL) Total Protein+Alb (07/26/2008 1:39 PM [facility]) P athologist Signature Protein Total, 8.1 5.7 - 8.3 HP CONVERSION Serum gm/dL Albumin 5.2 (H) 3.4 - 5.0 HP CONVERSION g/dL Globulin Serum 2.9 1.8 - 3.9 HP CONVERSION gm/dL Specimen (Source) Anatomical Collection Method Collection Time Re ceived Time Location / / Volume Laterality 07/26/2008 1:39 PM [facility] Terrence Hernandez MD LAB_1 Performing Organization Address City/State/ZIP Code Phon e Number HP CONVERSION documented in this encounter Visit Diagnoses Not on filedocumented in this encounter Care Teams Blood Coordinator Relationship Specialty Start Date End Date Hansa Lewis APRN, CHORAL TEACHER PCP - General 10/22/10 11/30/[address] [place] [address] documented as of this encounter
--- OUTSIDE RECORDS SUMMARY | 2022-06-28 09:01 | XMS_ITS | Encounter Summary ---
:1960 Author Organization [employer] Address [address] [place] [address] Care Team Providers Name Role Phone Hansa Lewis YARED NGUYỄN Primary Care Provider [phone] Encounter Details Date Type Department Care Team Description 06/01/2008 PN Conversion Only [facility] [address] [place] [address] Social History Tobacco Use Types Packs/Day Years Used Date Smoking Tobacco: Never Assessed Sex Assigned at Date Recorded Not on file documented as of this encounter Plan of Treatment Not on filedocumented as of this encounter Procedures Procedure Name Priority Date/Time Associated Diagnosis Comme nts US RENAL W BLADDER Routine 06/01/2008 2:53 PM Res ults for this ORTHOPEDIC RN procedure are i n the results section. documented in this encounter Results US Renal W Bladder (06/01/2008 2:53 PM ORTHOPEDIC RN) Anatomical Region Laterality Modality Abdomen, Pelvis Other Specimen (Source) Anatomical Location Collection Method / Collectio n Time Received Time / Laterality Volume Narrative 06/01/2008 2:53 PM ORTHOPEDIC RN Right kidney measures 9.2 cm longitudinally and left kidney measures 9.6 cm longitudinally. ??No suspicious r enal masses nor obstruction. Bladder grossly unremarkable. [id number]/rubén Dictating LARRY CHERY MD Procedure Note Larry Alexis - 09/22/2016 Right kidney measures 9.2 cm longitudina lly and left kidney measures 9.6 cm longitudinally. No suspicious fransico al masses nor obstruction. Bladder grossly unremarkable. [id number]/rubén Dictating LARRY CHERY MD Hansa Lewis APRN, CNP [facility] documented in this encounter Visit Diagnoses Not on filedocumented in this encounter Care Teams Leveler Relationship Specialty Start Date End Date Hansa Lewis APRN, CNP PCP - General 10/22/10 11/30/[address] [place] [address] documented as of this encounter
--- OUTSIDE RECORDS SUMMARY | 2022-06-28 09:01 | XMS_ITS | Encounter Summary ---
:1960 Author Organization [employer] Address [address] [place] [address] Care Team Providers Name Role Phone Hansa Lewis APRYARED Ma Primary Care Provider Reason for Visit Reason Comments Other Encounter Details Date Type Department Care Team Description 10/17/2007 Telephone Specialty Center [facility]it [facility]un[facility] [address] [place] [address]. [place] [address] Social History Tobacco Use Types Packs/Day Years Used Date Smoking Tobacco: Never Assessed Sex Assigned at Date Recorded Not on file documented as of this encounter Progress Notes Alexi Nelson MD - 10/17/2007 5:08 PM CDT Phone Note filed by Alexi Nelson MD at 11/08/101729 Author: Alexi Nelson MD Service: (none) Author Type: Physician Filed: 11/08/101729 Note Time: 10/17/071707 Status: Signed Press Worker Helper: Alexi Nelson MD (Physician) Lab letter sent. [...] pt. Acknowledged by BALJIT LAGUNAS on 10:03am IRONER documented in this encounter Plan of Treatment Not on filedocumented as of this encounter Visit Diagnoses Not on filedocumented in this encounter Care Teams City Assessor Relationship Specialty Start Date End Date Hansa Lewis APRN, SERVICE COORDINATOR PCP - General 10/22/10 11/30/12 [address] [place] [address] documented as of this encounter
--- OUTSIDE RECORDS SUMMARY | 2022-06-28 09:01 | XMS_ITS | Encounter Summary ---
:1960 Author Organization [facility] Address [address], [place] [address] Care Team Providers Name Role Phone Hansa Lewis APRN, CNP Primary Care Provider [phone] Reason for Visit Reason Comments Other Encounter Details Date Type Department Care Team Description 05/06/2008 Telephone [facility] Adelaida Lewis APRN, CNP Other Medicine [address] [facility] [address] [place] [address] [place] [address] [phone] Social History Tobacco Use Types Packs/Day Years Used Date Smoking Tobacco: Never Assessed Sex Assigned at Date Recorded Not on file documented as of this encounter Progress Notes Center, Message - 05/06/2008 11:19 AM CDT Phone Note filed by Serious Business at 11/09/10812 Author: [employer] Service: (none) Author Type: (none) Filed: 11/09/10812 Note Time: 05/06/081118 Status: Signed College Recruiter: Serious Business Prescription Refill Please provide enough refills to last until patient's next visit. Comment:- Pharmacy Seq #:-[phone] [facility] Street or City:-[place] Clinician Name:Collins LEWIS Drug Name/Strength:-TENORMIN 50MG TAB Sig: Dose/Route/Freq:-TAKE ONE TAB DAILY Quantity & Last Fill:-04/06/08 Created on 06May2008 11:19am by AYUSH LICEA On 13May2008 1:03pm HANSA LEWIS wrote: refilled Acknowledged by HANSA LEWIS on 1:03pm NESS SERVICES REPRESENTATIVE documented in this encounter Plan of Treatment Not on filedocumented as of this encounter Visit Diagnoses Not on filedocumented in this encounter Care Teams Medical Officer Psychiatry Relationship Specialty Start Date End Date Hansa Lewis APRN, VITICULTURIST PCP - General 10/22/10 11/30/12 [address] [place] [address] documented as of this encounter
--- OUTSIDE RECORDS SUMMARY | 2022-06-28 09:01 | XMS_ITS | Encounter Summary ---
:1960 Author Organization [employer] Address [address], [place] [address] Care Team Providers Name Role Phone Hansa Lewis YARED NGUYỄN Primary Care Provider [phone] Encounter Details Date Type Department Care Team Description 08/09/2008 Office Visit Specialty Center [address] Niraj Nelson MD Gastroenterology [address] [place] [address] [place] [address] [phone] Social History Tobacco Use Types Packs/Day Years Used Date Smoking Tobacco: Never Assessed Sex Assigned at Date Recorded Not on file documented as of this encounter Last Filed Vital Signs Vital Sign Reading Time Taken Comments Blood Pressure 102/60 08/09/2008 8:29 AM TANK ASSEMBLER Pulse - - Temperature - - Respiratory Rate - - Oxygen Saturation - - Inhaled Oxygen Concentration - - Weight 80.3 kg (176 lb 15.8 oz) 08/09/2008 8:29 AM TANK ASSEMBLER C: 80.3kg Height - - Body Mass Index 23.67 07/26/2008 2:24 PM TANK ASSEMBLER documented in this encounter Progress Notes Philip Nelson MD - 08/09/2008 12:01 AM CST Progress Notes signed by Philip Nelson MD at 08/17/08 2788 Author: Philip Nelson MD Service: (none) Author Type: Physician Filed: 11/11/10 1010 Note Time: 08/09/08 0001 Status: Signed Dance Choreographer: Philip Nelson MD (Physician) NAME: JOSH MOSLEY MR#: [id number] ACCT: [id number] VISIT: [id number] DICTATING CLINICIAN: Philip Nelson MD CONFIRM #: [id number] LOC: 3533 CLINIC PROGRESS NOTE DATE OF [...] late in 2006. On review of his Cint labs, it appears that his liver tests [...] He is . He works in the [email or web address] industry. Does not smoke. Other [...] needed. PLAN: See assessment. CC: CRISTINA Steele WILLIAMS:[id number] C: 08/09/08 13:25 CONFIRM #: [id number] ASSEMBLER documented in this encounter Plan of Treatment Not on filedocumented as of this encounter Visit Diagnoses Not on filedocumented in this encounter Care Teams Principal Associate Relationship Specialty Start Date End Date Hansa Lewis APRN, ODD JOB WORKER PCP - General 10/22/10 11/30/12 [address] [place] [address] documented as of this encounter
--- OUTSIDE RECORDS SUMMARY | 2022-06-28 09:02 | XMS_ITS | Encounter Summary ---
:1960 Author Organization [employer] Address [address] [place] [address] Care Team Providers Name Role Phone Hansa Lewis APRN, CNP Primary Care Provider [phone] Reason for Visit Reason Comments Other Encounter Details Date Type Department Care Team Description 06/27/2007 Telephone [facility], Message Other [address] [place] [address] Social History Tobacco Use Types [...] 1000 Note Time: 06/27/07 1133 Status: Signed Transport Tank Technician: Kari Jurado MA (Proofer Prepress) US RUQ includes Gallbaldder,liver,pancreas,Rt renal and CBD results are available for viewing in LW. Created on 27Jun2007 11:33am by KARI JURADO On 27Jun2007 5:15pm HANSA LEWIS wrote: lmwith to call me 06/30 for results Acknowledged by HANSA LEWIS on 5:15pm On 30Jun2007 10:09am VERONICA TAVARES wrote: Mr Mosley returning Hansa's call ...he can be reached on his cell phone...[phone]--- thank you. Acknowledged by AVTAR FABIAN on [...] pt. with lab letter. Rx faxed to [facility] in [place] per pt. Acknowledged by AVTAR FABIAN on 12:04pm NING TECHNICIAN documented in this encounter Plan of Treatment Not on filedocumented as of this encounter Visit Diagnoses Not on filedocumented in this encounter Care Teams Fire Patroller Relationship Specialty Start Date End Date Hansa Lewis, DELMA, TENTERING MACHINE OFF BEARER PCP - General 10/22/10 11/30/12 [address] [place] [address] documented as of this encounter
--- OUTSIDE RECORDS SUMMARY | 2022-06-28 09:02 | XMS_ITS | Encounter Summary ---
:1960 Author Organization [facility] Address [address] [place] [address] Care Team Providers Name Role Phone Hansa Lewis APRN, YARED Primary Care Provider [phone] Encounter Details Date Type Department Care Team Description 06/18/2006 PN Conversion Only [place] N Hansa Lewis APRN, [address] [place] [address] [facility] [place], [place] [address] (Wo rk) Social History Tobacco Use Types Packs/Day Years Used Date Smoking Tobacco: Never Assessed Sex Assigned at Date Recorded Not on file documented as of this encounter Plan of Treatment Not on filedocumented as of this encounter Procedures Procedure Name Priority Date/Time Associated Comments Diagnosis ELECTROLYTES (NA, K, Routine 06/18/2006 4:47 PM R esults for this CL, BICARB) TOOL MAINTENANCE TECHNICIAN procedure are i n the results section. LIPID PANEL AND Routine 06/18/2006 4:47 PM Result s for this DIRECT LDL(IF NEEDED) TOOL MAINTENANCE TECHNICIAN proced ure are in the results section. CREATININE / GFR Routine 06/18/2006 4:47 PM Resul ts for this TOOL MAINTENANCE TECHNICIAN procedure are i n the results section. ALT (SGPT) Routine 06/18/2006 4:47 PM Results f or this TOOL MAINTENANCE TECHNICIAN procedure are i n the results section. CK, TOTAL Routine 06/18/2006 4:47 PM Results f or this TOOL MAINTENANCE TECHNICIAN procedure are i n the results section. BUN Routine 06/18/2006 4:47 PM Results f or this TOOL MAINTENANCE TECHNICIAN procedure are i n the results section. documented in this encounter Results (ABNORMAL) ALT (SGPT) (06/18/2006 4:47 PM TOOL MAINTENANCE TECHNICIAN) [facility] gist Method Time Signature Alanine 85 (H) 0 - 65 HP CONVERSION Aminotransferase U/L Specimen (Source) Anatomical Collection Method Collection Time Re ceived Time Location / / Volume Laterality 06/18/2006 4:47 PM TOOL MAINTENANCE TECHNICIAN Hansa Lewis APRYARED Ma LAB_1 Performing Organization Address City/[facility] Code Phon e Number HP CONVERSION BUN (06/18/2006 4:47 PM TOOL MAINTENANCE TECHNICIAN) athologist Signature Blood Urea 17 5 - 26 HP CONVERSION Nitrogen mg/dL Specimen (Source) Anatomical Collection Method Collection Time Re ceived Time Location / / Volume Laterality 06/18/2006 4:47 PM TOOL MAINTENANCE TECHNICIAN Hansa Lewis APRYARED Ma LAB_1 Performing Organization Address [facility] Code Phon e Number HP CONVERSION CK, Total (06/18/2006 4:47 PM TOOL MAINTENANCE TECHNICIAN) athologist Signature Creatine Kinase 21 0 - 225 HP CONVERSION U/L Specimen (Source) Anatomical Collection Method Collection Time Re ceived Time Location / / Volume Laterality 06/18/2006 4:47 PM TOOL MAINTENANCE TECHNICIAN Hansa Lewis APRN YARED LAB_1 Performing Organization Address [facility] Code Phon e Number HP CONVERSION Creatinine / GFR (06/18/2006 4:47 PM TOOL MAINTENANCE TECHNICIAN) athologist Signature Creatinine 1.4 0.5 - 1.5 HP CONVERSION Serum mg/dL Specimen (Source) Anatomical Collection Method Collection Time Re ceived Time Location / / Volume Laterality 06/18/2006 4:47 PM TOOL MAINTENANCE TECHNICIAN Hansa Lewis APRNYARED LAB_1 Performing Organization Address [facility] Code Phon e Number HP CONVERSION Electrolytes (NA, K, CL, Bicarb) (06/18/2006 4:47 PM TOOL MAINTENANCE TECHNICIAN) athologist Signature Sodium 140 137 - 147 HP CONVERSION meq/L Potassium 4.0 3.5 - 5.2 HP CONVERSION meq/L Chloride 105 98 - 110 HP CONVERSION meq/L Bicarbonate 26 23 - 33 HP CONVERSION mmol/L Specimen (Source) Anatomical Collection Method Collection Time Re ceived Time Location / / Volume Laterality 06/18/2006 4:47 PM TOOL MAINTENANCE TECHNICIAN Hansa Lewis APRN, CNP LAB_1 Performing Organization Address City/State/ZIP Code Phon e Number HP CONVERSION (ABNORMAL) Lipid Panel and Direct LDL(If Needed) (06/18/2006 4:47 PM TOOL MAINTENANCE TECHNICIAN) [facility] Method Time Signature Cholesterol/HDL 5.1 No [...] / / Volume Laterality 06/18/2006 4:47 PM TOOL MAINTENANCE TECHNICIAN Hansa Lewis APRN, CNP LAB_1 Performing Organization Address [facility] Phon e Number HP CONVERSION documented in this encounter Visit Diagnoses Not on filedocumented in this encounter Care Teams Healthcare Insurance Sales Agent Relationship Specialty Start Date End Date Hansa Lewis APRN, CNP PCP - General 10/22/10 11/30/[address] [place] [place] [address] documented as of this encounter
--- OUTSIDE RECORDS SUMMARY | 2022-06-28 09:02 | XMS_ITS | Encounter Summary ---
:1960 Author Organization [facility] Address [address], [place] [address] Care Team Providers Name Role Phone Hansa Lewis APRN, CNP Primary Care Provider [phone] Reason for Visit Reason Comments Other Encounter Details Date Type Department Care Team Description 08/11/2007 Telephone [facility] [address], Message [facility] er Gastroenterology [address] [facility] [place] [address] Social History Tobacco Use Types Packs/Day Years Used Date Smoking Tobacco: Never Assessed Sex Assigned at Date Recorded Not on file documented as of this encounter Progress Notes [place], Message - 08/11/2007 2:20 PM CST Phone Note filed by [employer] at 11/08/10 1250 Author: [employer] Service: (none) Author Type: (none) Filed: 11/08/10 1250 Note Time: 08/11/07 1420 Status: Signed Bar Roller: [facility] myaNUMBER Lab Letter sent to lori vasquez, copy sent to scan doc Created on 11Aug2007 2:20pm by VIVI SAMANIEGO IFIED NOVELL ADMINISTRATOR documented in this encounter Plan of Treatment Not on filedocumented as of this encounter Visit Diagnoses Not on filedocumented in this encounter Care Teams Thermal Spray Operator Relationship Specialty Start Date End Date Hansa Lewis APRN, CNP PCP - General 10/22/10 11/30/[address] [place] [place] [address] documented as of this encounter
--- OUTSIDE RECORDS SUMMARY | 2022-06-28 09:02 | XMS_ITS | Encounter Summary ---
:1960 Author Organization [employer] Address [address], [place] [address] Care Team Providers Name Role Phone Hansa Lewis APRN, CNP Primary Care Provider [phone] Encounter Details Date Type Department Care Team Description 07/28/2007 Office Visit [place] [facility] Hansa Lewis APRN, [facility] [address] [place] [address] [place] [address] [phone] (Wo rk) Social History Tobacco Use Types Packs/Day Years Used Date Smoking Tobacco: Never Assessed Sex Assigned at Date Recorded Not on file documented as of this encounter Last Filed Vital Signs Vital Sign Reading Time Taken Comments Blood Pressure 122/72 07/28/2007 4:08 PM TABLEAU ANALYST Pulse 60 07/28/2007 4:08 PM TABLEAU ANALYST Temperature - - Respiratory Rate - - Oxygen Saturation - - Inhaled Oxygen Concentration - - Weight 88 kg (193 lb 15.7 oz) 07/28/2007 4:08 PM TABLEAU ANALYST C: 88.0kg Height - - Body Mass Index 25.95 06/06/2007 8:21 AM TABLEAU ANALYST documented in this encounter Progress Notes Hansa Lewis APRN, DIRECTOR OF CONSERVATION - 07/28/2007 12:01 AM CST Progress Notes signed by CRISTINA Steele at 08/14/07 1232 Author: CRISTINA Steele Service: (none) Author Type: (none) Filed: 11/10/10 2359 Note Time: 07/28/07 0001 Status: Signed Linoleum Printer: CRISTINA Steele (Nurse Practitioner) NAME: JOSH MOSLEY MR#: [id number] ACCT: [id number] VISIT: [id number] DICTATING CLINICIAN: CRISTINA Steele JOB: [id number] LOC: 506 CLINIC PROGRESS NOTE DATE OF VISIT: 07/28/2007 SUBJECTIVE: : 1960. Follow up hypertension. Josh had a creatinine of 1.5 while on lisinopril. We discontinued lisinopril and started him on low-dose Diovan 80 mg, in addition to his atenolol. He says over the last 2 weeks, occasionally he will feel some lightheadedness if he stands up too quickly, but he has no chest pain, palpitations, or exercise intolerance. In fact, was hunting all day today. Had taken a 20-mile bike ride, and had no fatigue. He has also been noted to have an elevated glucose. Spoke with the academic computing director. Has had a 10-pound weight loss over the last 3 to 4 weeks. He says he is eating chicken and vegetables and is actually feeling more energetic on his new diet. He has had an elevated LDL before at 145. He would like lab tests done mid September for monitoring of his lifestyle changes. OTHER PAST MEDICAL HISTORY: Negative. MEDICATIONS: Diovan 80 mg 1 p.o. daily, atenolol 50 mg 1 p.o. daily, and Prilosec 20 mg daily. ADR/ALLERGIES: CODEINE. SOCIAL HISTORY: , nonsmoker. OBJECTIVE: VS: BP1: 122/72. BP2: 124/78. P: ??60??. Wt: 194. Josh appears very well today. Alert, oriented, upbeat. SKIN: Warm, dry, nondiaphoretic. HEENT: Eyes, conjunctivae clear, PERRLA. Sclerae nonicteric. NECK: Supple without lymphadenopathy. LUNGS: Clear. CARDIOVASCULAR: S1, S2. Rate and rhythm regular without murmur. No dependent edema. ASSESSMENT: 1. Hypertension, controlled. 2. Hyperglycemia. 3. Hyperlipidemia. 4. Fatty liver. PLAN: We will get a BUN, creatinine, lytes to evaluate creatinine on the Diovan. We will also get an ALT, AST, total bili, and LDH for continued monitoring of abnormal liver function tests, also, because his family was concerned that he had yellow sclerae. In 2 months' time, we will get a cholesterol fractionation, ALT, CPK, hemoglobin A1c, and fasting glucose. He will follow up with me at that time to review results. LAE:[id number] C: 07/29/07 10:43 DOCUMENT: [id number] EAU ANALYST documented in this encounter Plan of Treatment Not on filedocumented as of this encounter Visit Diagnoses Not on filedocumented in this encounter Care Teams Assembled Wood Products Repairer Relationship Specialty Start Date End Date Hansa Lewis APRN, DIRECTOR OF CONSERVATION PCP - General 10/22/10 11/30/12 [address] [place] [address] documented as of this encounter
--- OUTSIDE RECORDS SUMMARY | 2022-06-28 09:02 | XMS_ITS | Encounter Summary ---
:1960 Author Organization [employer] Address [address] [place] [address] Care Team Providers Name Role Phone Hansa Lewis APRN, YARED Primary Care Provider [phone] Encounter Details Date Type Department Care Team Description 06/05/2005 PN Conversion Only [place] CONVERSIO N Hansa Lewis APRN, [address] [employer] [address] [facility] [address] [place], [place] [address] (Wo rk) Social History Tobacco Use Types Packs/Day Years Used Date Smoking Tobacco: Never Assessed Sex Assigned at Date Recorded Not on file documented as of this encounter Plan of Treatment Not on filedocumented as of this encounter Procedures Procedure Name Priority Date/Time Associated Comments Diagnosis ELECTROLYTES (NA, K, Routine 06/05/2005 4:45 PM R esults for this CL, BICARB) CENTRAL OFFICE OPERATOR SUPERVISOR procedure are i n the results section. GLUCOSE Routine 06/05/2005 4:45 PM Results f or this CENTRAL OFFICE OPERATOR SUPERVISOR procedure are i n the results section. LIPID PANEL AND Routine 06/05/2005 4:45 PM Result s for this DIRECT LDL(IF NEEDED) CENTRAL OFFICE OPERATOR SUPERVISOR proced ure are in the results section. CREATININE / GFR Routine 06/05/2005 4:45 PM Resul ts for this CENTRAL OFFICE OPERATOR SUPERVISOR procedure are i n the results section. COMPLETE BLOOD Routine 06/05/2005 4:45 PM Results for this COUNT-W/DIFF CENTRAL OFFICE OPERATOR SUPERVISOR procedure are i n the results section. BUN Routine 06/05/2005 4:45 PM Results f or this CENTRAL OFFICE OPERATOR SUPERVISOR procedure are i n the results section. documented in this encounter Results Complete Blood Count-W/Diff (06/05/2005 4:45 PM CENTRAL OFFICE OPERATOR SUPERVISOR) [facility] gist Method Time Signature White Blood [...] - HP CONVERSION Hemoglobin Conc 36.5 gm/dL [place] RDW 12.2 11.0 - HP CONVERSION 15.0 [...] / / Volume Laterality 06/05/2005 4:45 PM CENTRAL OFFICE OPERATOR SUPERVISOR Hansa Joshua NGUYỄN CNP LAB_1 Performing Organization Address City/State/ZIP Code Phon e Number HP CONVERSION BUN (06/05/2005 4:45 PM CENTRAL OFFICE OPERATOR SUPERVISOR) athologist Signature Blood Urea 17 5 - 26 HP CONVERSION Nitrogen mg/dL Specimen (Source) Anatomical Collection Method Collection Time Re ceived Time Location / / Volume Laterality 06/05/2005 4:45 PM CENTRAL OFFICE OPERATOR SUPERVISOR Hansa Joshua NGUYỄN CNP LAB_1 Performing Organization Address City/State/ZIP Code Phon e Number HP CONVERSION Creatinine / GFR (06/05/2005 4:45 PM CENTRAL OFFICE OPERATOR SUPERVISOR) athologist Signature Creatinine 1.4 0.5 - 1.5 HP CONVERSION Serum mg/dL Specimen (Source) Anatomical Collection Method Collection Time Re ceived Time Location / / Volume Laterality 06/05/2005 4:45 PM CENTRAL OFFICE OPERATOR SUPERVISOR Hansa Lewis APRN, CNP LAB_1 Performing Organization Address [facility] Phon e Number HP CONVERSION Glucose (06/05/2005 4:45 PM CENTRAL OFFICE OPERATOR SUPERVISOR) athologist Signature Lab Glucose 86 60 - 100 HP CONVERSION mg/dL Specimen (Source) Anatomical Collection Method Collection Time Re ceived Time Location / / Volume Laterality 06/05/2005 4:45 PM CENTRAL OFFICE OPERATOR SUPERVISOR Hansa Lewis APRN, CNP LAB_1 Performing Organization Address [facility] Phon e Number HP CONVERSION (ABNORMAL) Electrolytes (NA, K, CL, Bicarb) (06/05/2005 4:45 PM CENTRAL OFFICE OPERATOR SUPERVISOR) athologist Signature Sodium 134 (L) 137 - 147 HP CONVERSION meq/L Potassium 3.8 3.5 - 5.2 HP CONVERSION meq/L Chloride 99 98 - 110 HP CONVERSION meq/L Bicarbonate 22 (L) 23 - 33 HP CONVERSION mmol/L Specimen (Source) Anatomical Collection Method Collection Time Re ceived Time Location / / Volume Laterality 06/05/2005 4:45 PM CENTRAL OFFICE OPERATOR SUPERVISOR Hansa Lewis APRN, CNP LAB_1 Performing Organization Address [facility] Phon e Number HP CONVERSION (ABNORMAL) Lipid Panel and Direct LDL(If Needed) (06/05/2005 4:45 PM CENTRAL OFFICE OPERATOR SUPERVISOR) [facility] Method Time Signature Cholesterol/HDL 6.9 No [...] / / Volume Laterality 06/05/2005 4:45 PM CENTRAL OFFICE OPERATOR SUPERVISOR Hansa Lewis APRN, CNP LAB_1 Performing Organization Address [facility] Phon e Number HP CONVERSION documented in this encounter Visit Diagnoses Not on filedocumented in this encounter Care Teams Occupational Nurse Relationship Specialty Start Date End Date Hansa Lewis APRN, HOG STOMACH PREPARER PCP - General 10/22/10 11/30/12 [address] [place] [address] documented as of this encounter
--- OUTSIDE RECORDS SUMMARY | 2022-06-28 09:02 | XMS_ITS | Encounter Summary ---
:1960 Author Organization [employer] Address [address] [place] [address] Care Team Providers Name Role Phone LilialynnetteHansa APRN, CNP Primary Care Provider [phone] Reason for Visit Reason Comments Other Encounter Details Date Type Department Care Team Description 07/24/2007 Telephone [facility], Message Other [address] [place], [place] [address] Social History Tobacco Use Types Packs/Day Years Used Date Smoking Tobacco: Never Assessed Sex Assigned at Date Recorded Not on file documented as of this encounter Progress Notes Center, Message - 07/24/2007 2:03 PM CST Phone Note filed by Remo[employer] at 11/08/10 1140 Author: [employer] Service: (none) Author Type: (none) Filed: 11/08/10 1140 Note Time: 07/24/07 1403 Status: Signed Kiln Furniture Saw Tender: Remoov Patient's left message Bryce had two lab orders and lost them both, can these be redone and sent to the lab? Also Hansa wanted them to check his BP again, can he have this checked anywhere or did she want to see him? Please notify his , she didn't leave her name, at [phone]. Created on 24Jul2007 2:03pm by MEGHAN FARFAN On 24Jul2007 3:05pm AVTAR FABIAN wrote: Spoke with and he made an apt.for Med check and BP ckeck Acknowledged by AVTAR FABIAN on 3:05pm NT SUCCESS MANAGER documented in this encounter Plan of Treatment Not on filedocumented as of this encounter Visit Diagnoses Not on filedocumented in this encounter Care Teams Skilled Nursing Professional Relationship Specialty Start Date End Date Hansa Lewis APRN, TRAFFIC OBSERVER PCP - General 10/22/10 11/30/12 [address] [place] [address] documented as of this encounter
--- OUTSIDE RECORDS SUMMARY | 2022-06-28 09:02 | XMS_ITS | Encounter Summary ---
:1960 Author Organization [employer] Address [address] [address] Care Team Providers Name Role Phone Hansa Lewis APRN, CNP Primary Care Provider [phone] Encounter Details Date Type Department Care Team Description 06/18/2006 Office Visit [place] [facility] Hansa Lewis APRN, [facility] [address] [address] [place] [address] [place] [address] [phone] (Wo rk) Social History Tobacco Use Types Packs/Day Years Used Date Smoking Tobacco: Never Assessed Sex Assigned at Date Recorded Not on file documented as of this encounter Last Filed Vital Signs Vital Sign Reading Time Taken Comments Blood Pressure 114/80 06/18/2006 4:23 PM SUPERVISOR FORMING AND TEMPERING Pulse 72 06/18/2006 4:23 PM SUPERVISOR FORMING AND TEMPERING Temperature - - Respiratory Rate - - Oxygen Saturation - - Inhaled Oxygen Concentration - - Weight 93.2 kg (205 lb 7.9 oz) 06/18/2006 4:23 PM SUPERVISOR FORMING AND TEMPERING C : 93.2kg Height - - Body Mass Index 27.11 06/05/2005 3:55 PM SUPERVISOR FORMING AND TEMPERING documented in this encounter Progress Notes Hansa Lewis APRN, AUTOCAD OPERATOR - 06/18/2006 12:01 AM CST Progress Notes signed by CRISTINA Steele at 07/04/06 1404 Author: CRISTINA Steele Service: (none) Author Type: (none) Filed: 11/10/10 1544 Note Time: 06/18/06 0001 Status: Signed Hand Assembler For Puller Over: CRISTINA Steele (Nurse Practitioner) NAME: JOSH MOSLEY MR#: [id number] ACCT: [id number] VISIT: [id number] DICTATING CLINICIAN: CRISTINA Steele JOB: [id number] LOC: 506 CLINIC PROGRESS NOTE DATE OF [...] up about 5 lb since last visit. Pat appears well. Alert, oriented, upbeat. SKIN: Warm, [...] complete physical as well. Patient in agreement. NITZA:[id number] C: 06/19/06 11:38 DOCUMENT: [id number] RVISOR FORMING AND TEMPERING documented in this encounter Plan of Treatment Not on filedocumented as of this encounter Visit Diagnoses Not on filedocumented in this encounter Care Teams Copier Field Service Technician Relationship Specialty Start Date End Date Hansa Lewis, DELMA, AUTOCAD OPERATOR PCP - General 10/22/10 11/30/12 [address] [place] [address] documented as of this encounter
--- OUTSIDE RECORDS SUMMARY | 2022-06-28 09:02 | XMS_ITS | Encounter Summary ---
:1960 Author Organization [employer] Address [address], [place] [address] Care Team Providers Name Role Phone Hansa Lewis APRN, CNP Primary Care Provider [phone] Encounter Details Date Type Department Care Team Description 06/05/2005 Office Visit [place] [facility] Hansa Lewis APRN, [facility] [address] [address] [place] [address] [place] [address] [phone] (Wo rk) Social History Tobacco Use Types Packs/Day Years Used Date Smoking Tobacco: Never Assessed Sex Assigned at Date Recorded Not on file documented as of this encounter Last Filed Vital Signs Vital Sign Reading Time Taken Comments Blood Pressure 106/80 06/05/2005 3:55 PM PHOTOGRAMMETRY AIRPLANE PILOT Pulse 60 06/05/2005 3:55 PM PHOTOGRAMMETRY AIRPLANE PILOT Temperature - - Respiratory Rate - - Oxygen Saturation - - Inhaled Oxygen Concentration - - Weight 89.7 kg (197 lb 11 oz) 06/05/2005 3:55 PM PHOTOGRAMMETRY AIRPLANE PILOT C: 89.7kg Height 185.4 cm (6' 1) 06/05/2005 3:55 PM PHOTOGRAMMETRY AIRPLANE PILOT C: 185.4 cm Body Mass Index 26.08 06/05/2005 3:55 PM PHOTOGRAMMETRY AIRPLANE PILOT documented in this encounter Progress Notes Hansa Lewis APRN, YARED - 06/05/2005 12:01 AM CST H&P signed by CRISTINA Steele at 07/10/05 1529 Author: CRISTINA Steele Service: (none) Author Type: (none) Filed: 11/10/10 0809 Note Time: 06/05/052016 Status: Signed Kennel Staff Member: CRISTINA Steele (Nurse Practitioner) NAME: JOSH MOSLEY MR: [id number] ACCT: [id number] VISIT: [id number] DICTATING CLINICIAN: HANSA LEWIS RN,ASSOCIATE PROFESSOR OF MANAGEMENT JOB: [id number] CLINIC PHYSICAL DATE OF VISIT: 06/05/2005 SUBJECTIVE: [...] diabetes. His mother at 62 of an OH. He had a maternal uncle who had his 1st OH at the age or 42. His mother [...] Patient is in agreement with this plan. LAE:[id number] C: 06/06/05 10:21 DOCUMENT: [id number] OGRAMMETRY AIRPLANE PILOT documented in this encounter Plan of Treatment Not on filedocumented as of this encounter Visit Diagnoses Not on filedocumented in this encounter Care Teams Counter Dish Carrier Relationship Specialty Start Date End Date Hansa Lewis, DELMA, ASSOCIATE PROFESSOR OF MANAGEMENT PCP - General 10/22/10 11/30/12 [address] [place] [address] documented as of this encounter
--- OUTSIDE RECORDS SUMMARY | 2022-06-28 09:02 | XMS_ITS | Encounter Summary ---
:1960 Author Organization [employer] Address [address] [place] [address] Care Team Providers Name Role Phone Hansa Lewis YARED NGUYỄN Primary Care Provider [phone] Encounter Details Date Type Department Care Team Description 08/07/2007 PN Conversion Only [place] [address] [place] [address] [place] [address] (Wo rk) Social History Tobacco Use Types Packs/Day Years Used Date Smoking Tobacco: Never Assessed Sex Assigned at Date Recorded Not on file documented as of this encounter Plan of Treatment Not on filedocumented as of this encounter Procedures Procedure Name Priority Date/Time Associated Diagnosis Comme nts COMPLETE BLOOD Routine 08/07/2007 7:56 AM Results for this COUNT-W/DIFF WORKING SECOND HAND procedure are i n the results section. ALT (SGPT) Routine 08/07/2007 7:56 AM Results f or this WORKING SECOND HAND procedure are i n the results section. AST Routine 08/07/2007 7:56 AM Results f or this WORKING SECOND HAND procedure are i n the results section. BILIRUBIN, TOTAL Routine 08/07/2007 7:56 AM Resul ts for this WORKING SECOND HAND procedure are i n the results section. BILI - DIRECT Routine 08/07/2007 7:56 AM Results for this WORKING SECOND HAND procedure are i n the results section. ALKALINE Routine 08/07/2007 7:56 AM Results f or this PHOSPHATASE, TOTAL WORKING SECOND HAND procedure are in the results section. INR/PROTIME Routine 08/07/2007 7:56 AM Results f or this WORKING SECOND HAND procedure are i n the results section. documented in this encounter Results Complete Blood Count-W/Diff (08/07/2007 7:56 AM WORKING SECOND HAND) Patholo gist Method Time Signature White Blood Cell 5.9 [...] - HP CONVERSION Hemoglobin Conc 36.5 gm/dL [place] RDW 12.4 11.0 - HP CONVERSION 15.0 [...] / / Volume Laterality 08/07/2007 7:56 AM WORKING SECOND HAND Philip Nelson MD LAB_1 Performing Organization Address City/State/ZIP Code Phon e Number HP CONVERSION Alkaline Phosphatase, Total (08/07/2007 7:56 AM WORKING SECOND HAND) P athologist Signature Alk Phos 62 25 - 135 U/L HP CONVERSION Specimen (Source) Anatomical Collection Method Collection Time Re ceived Time Location / / Volume Laterality 08/07/2007 7:56 AM WORKING SECOND HAND Philip Nelson MD LAB_1 Performing Organization Address City/State/ZIP Code Phon e Number HP CONVERSION ALT (SGPT) (08/07/2007 7:56 AM WORKING SECOND HAND) [facility] gist Method Time Signature Alanine 37 4 - 55 HP CONVERSION Aminotransferase U/L Specimen (Source) Anatomical Collection Method Collection Time Re ceived Time Location / / Volume Laterality 08/07/2007 7:56 AM WORKING SECOND HAND Philip Nelson MD LAB_1 Performing Organization Address [facility] Phon e Number HP CONVERSION AST (08/07/2007 7:56 AM WORKING SECOND HAND) [facility] gist Method Time Signature Aspartate 24 0 - 45 HP CONVERSION Aminotransferase U/L Specimen (Source) Anatomical Collection Method Collection Time Re ceived Time Location / / Volume Laterality 08/07/2007 7:56 AM WORKING SECOND HAND Philip Nelson MD LAB_1 Performing Organization Address [facility] Code Phon e Number HP CONVERSION Bilirubin, Direct (08/07/2007 7:56 AM WORKING SECOND HAND) P athologist Signature Bilirubin, 0.3 0.0 - 0.4 HP CONVERSION Direct mg/dL Specimen (Source) Anatomical Collection Method Collection Time Re ceived Time Location / / Volume Laterality 08/07/2007 7:56 AM WORKING SECOND HAND Philip Nelson MD LAB_1 Performing Organization Address [facility] Code Phon e Number HP CONVERSION Bilirubin, Total (08/07/2007 7:56 AM WORKING SECOND HAND) P athologist Signature Bilirubin Total 1.0 0.2 - 1.2 HP CONVERSION mg/dL Specimen (Source) Anatomical Collection Method Collection Time Re ceived Time Location / / Volume Laterality 08/07/2007 7:56 AM WORKING SECOND HAND Philip Nelson MD LAB_1 Performing Organization Address [facility] Phon e Number HP CONVERSION INR/Protime (08/07/2007 7:56 AM WORKING SECOND HAND) Analysis Performed At Patho logist Time Signature [...] valves in the aortic position , acute SD, valvular heart disease and atrial fibril lation. Mechanical prosthetic valves, (high risk ). ? INR 2.5-3.5 Prevention of recurrent myocardial infar ct. These recommended ranges serve as guidel nila. Adjustment outside these ranges may be clinically indicated. Specimen (Source) Anatomical Collection Method Collection Time Re ceived Time Location / / Volume Laterality 08/07/2007 7:56 AM WORKING SECOND HAND Philip Nelson MD LAB_1 Performing Organization Address City/State/ZIP Code Phon e Number HP CONVERSION documented in this encounter Visit Diagnoses Not on filedocumented in this encounter Care Teams Snow Blower Relationship Specialty Start Date End Date Hansa Lewis APRN, LOGISTICS ENGINEERING MANAGER PCP - General 10/22/10 11/30/12 [address] [place] [id number] documented as of this encounter
--- OUTSIDE RECORDS SUMMARY | 2022-06-28 09:02 | XMS_ITS | Encounter Summary ---
:1960 Author Organization [employer] Address [address] [place] [address] Care Team Providers Name Role Phone Hansa Lewis APRN, YARED Primary Care Provider [phone] Encounter Details Date Type Department Care Team Description 07/30/2007 PN Conversion Only [place] [facility] N Hansa Lewis APRN, [address] [address] [employer] [place] [address] [facility] [address] [place], [place] [address] (Wo rk) Social History Tobacco Use Types Packs/Day Years Used Date Smoking Tobacco: Never Assessed Sex Assigned at Date Recorded Not on file documented as of this encounter Plan of Treatment Not on filedocumented as of this encounter Procedures Procedure Name Priority Date/Time Associated Comments Diagnosis MITOCHONDRIAL ANTIBODY Routine 07/30/2007 11:05 R esults for this AM SOLID SURFACE FABRICATOR procedure are i n the results section. ALPHA 1 ANTITRYPSIN Routine 07/30/2007 11:05 Resu lts for this PHENOTYPE AM SOLID SURFACE FABRICATOR procedure are i n the results section. HEPATITIS A IGM Routine 07/30/2007 11:05 Results for this ANTIBODY AM SOLID SURFACE FABRICATOR procedure are i n the results section. HEPATITIS B SURFACE Routine 07/30/2007 11:05 Resu lts for this ANTIBODY AM SOLID SURFACE FABRICATOR procedure are i n the results section. HEP B SURFACE ANTIGEN, Routine 07/30/2007 11:05 R esults for this NO REFLEX AM SOLID SURFACE FABRICATOR procedure are i n the results section. IRON (NO IBC OR SAT) Routine 07/30/2007 11:05 Res ults for this AM SOLID SURFACE FABRICATOR procedure are i n the results section. BILIRUBIN, TOTAL & Routine 07/30/2007 11:05 Resul ts for this DIRECT AM SOLID SURFACE FABRICATOR procedure are i n the results section. HEPATITIS C ANTIBODY, Routine 07/30/2007 11:05 Re sults for this WITH REFLEX AM SOLID SURFACE FABRICATOR procedure are i n the results section. FERRITIN Routine 07/30/2007 11:05 Results for this AM SOLID SURFACE FABRICATOR procedure are i n the results section. documented in this encounter Results (ABNORMAL) Bilirubin, Total & Direct (07/30/2007 11:05 AM SOLID SURFACE FABRICATOR) athologist Signature Bilirubin 1.9 (H) 0.2 - 1.2 HP CONVERSION Total mg/dL Bilirubin, 0.6 (H) 0.0 - 0.4 HP CONVERSION Direct mg/dL Specimen (Source) Anatomical Collection Method Collection Time Re ceived Time Location / / Volume Laterality 07/30/2007 11:05 AM SOLID SURFACE FABRICATOR Hansa Lewis APRN, CNP LAB_1 Performing Organization Address City/State/ZIP Code Phon e Number HP CONVERSION Ferritin (07/30/2007 11:05 AM SOLID SURFACE FABRICATOR) athologist Signature Ferritin Serum 195 22 - 322 HP CONVERSION ng/mL Specimen (Source) Anatomical Collection Method Collection Time Re ceived Time Location / / Volume Laterality 07/30/2007 11:05 AM SOLID SURFACE FABRICATOR Hansa Lewis APRN, CNP LAB_1 Performing Organization Address City/[facility]/ZIP Code Phon e Number HP CONVERSION Hepatitis A Igm Antibody (07/30/2007 11:05 AM SOLID SURFACE FABRICATOR) athologist Signature Hepatitis A IgM NEG NEG HP CONVERSION Antibody Comment: Performed at [facility] [address] [place] [address] Specimen (Source) Anatomical Collection Method Collection Time Re ceived Time Location / / Volume Laterality 07/30/2007 11:05 AM SOLID SURFACE FABRICATOR Hansa Lewis APRN, CNP LAB_1 Performing Organization Address City/[facility]/ZIP Code Phon e Number HP CONVERSION Alpha 1 Antitrypsin Phenotype (07/30/2007 11:05 AM SOLID SURFACE FABRICATOR) athologist Signature Alpha-1 141 100 - 200 HP CONVERSION Antitrypsin mg/dL Comment: Interpretive data: TEST INFORMATION: Udszy-6-Totrulouhfy To convert to umol/L, multiply mg/dL by 0.185. Alpha 1 Antitrypsin Phenotype M1M1 MM HP CONVERSION Comment: All M subtypes (M1, M2, M3) have normal serum concentrations of oscpq-4-bhkjelbi inhib itor and are not associated with clinical disease. Ca ution in interpretation is advised if the patient has been transfused within the previous 14 days. Performed at [address] [address] Specimen (Source) Anatomical Collection Method Collection Time Re ceived Time Location / / Volume Laterality 07/30/2007 11:05 AM SOLID SURFACE FABRICATOR Hansa Lewis APRN, CNP LAB_1 Performing Organization Address [facility] Phon e Number HP CONVERSION Iron (no IBC or Sat) (07/30/2007 11:05 AM SOLID SURFACE FABRICATOR) athologist Signature Iron, Serum 96 50 - 165 HP CONVERSION ug/dL Specimen (Source) Anatomical Collection Method Collection Time Re ceived Time Location / / Volume Laterality 07/30/2007 11:05 AM SOLID SURFACE FABRICATOR Hansa Lewis APRN, CNP LAB_1 Performing Organization Address City/[facility] Code Phon e Number HP CONVERSION Hepatitis B Surface Antibody (07/30/2007 11:05 AM SOLID SURFACE FABRICATOR) Analysis Performed At Patho logist Time Signature Hep B Surf Ab Non-reac Non Reac HP CONVERSION Specimen (Source) Anatomical Collection Method Collection Time Re ceived Time Location / / Volume Laterality 07/30/2007 11:05 AM SOLID SURFACE FABRICATOR Hansa Lewis APRN, CNP LAB_1 Performing Organization Address City/[facility] Code Phon e Number HP CONVERSION Hep B Surface Antigen, No Reflex (07/30/2007 11:05 AM SOLID SURFACE FABRICATOR) Analysis Performed At Patho logist Time Signature Hep B Surf Ag Negative Negative HP CONVERSION Specimen (Source) Anatomical Collection Method Collection Time Re ceived Time Location / / Volume Laterality 07/30/2007 11:05 AM SOLID SURFACE FABRICATOR Hansa Lewis APRN, CNP LAB_1 Performing Organization Address City/[facility]/ZIP Code Phon e Number HP CONVERSION Hepatitis C Antibody, with Reflex (07/30/2007 11:05 AM SOLID SURFACE FABRICATOR) Analysis Performed At Patho logist Time Signature Hepatitis C Non-reac Non Reac HP CONVERSION Antibody Specimen (Source) Anatomical Collection Method Collection Time Re ceived Time Location / / Volume Laterality 07/30/2007 11:05 AM SOLID SURFACE FABRICATOR Hansa Lewis APRN, CNP LAB_1 Performing Organization Address [facility] Phon e Number HP CONVERSION Mitochondrial Antibody (07/30/2007 11:05 AM SOLID SURFACE FABRICATOR) Analysis Performed At Patho logist Time Signature Anti-Mitochond Neg<1:10 Neg<1:10 HP CONVERSION rial Ab Specimen (Source) Anatomical Collection Method Collection Time Re ceived Time Location / / Volume Laterality 07/30/2007 11:05 AM SOLID SURFACE FABRICATOR Hansa Lewis APRN, CNP LAB_1 Performing Organization Address [facility] Phon e Number HP CONVERSION documented in this encounter Visit Diagnoses Not on filedocumented in this encounter Care Teams Adult Remedial Education Instructor Relationship Specialty Start Date End Date Hansa Lewis APRN, CNP PCP - General 10/22/10 11/30/12 [address] [address] [place] [id number] documented as of this encounter
--- OUTSIDE RECORDS SUMMARY | 2022-06-28 09:02 | XMS_ITS | Encounter Summary ---
:1960 Author Organization [employer] Address [address] [address] Care Team Providers Name Role Phone Hansa Lewis APRYARED Ma Primary Care Provider [phone] Encounter Details Date Type Department Care Team Description 06/07/2006 PN Conversion Only [place] [address] [place] [address] Social History Tobacco Use Types Packs/Day Years [...] 0028 Note Time: 08/18/07 0001 Status: Signed Canvas Goods Fabricator: Philip Nelson MD (Physician) NAME: JOSH MOSLEY MR#: [id number] ACCT: VISIT: DICTATING CLINICIAN: Philip Nelson MD JOB: [id number] LOC: 3533 CLINIC NON VISIT NOTE DATE: August 18, 2007 No show for GI consultation today. Our office will contact the patient to attempt to reschedule appointment. WILLIAMS:[id number] C: 08/19/07 08:43 DOCUMENT: [id number] OMY PROFESSOR documented in this encounter Plan of Treatment Not on filedocumented as of this encounter Visit Diagnoses Not on filedocumented in this encounter Care Teams Iron Caster Relationship Specialty Start Date End Date Hansa Lewis APRN, BOARDING ROOM FIXER PCP - General 10/22/10 11/30/12 [address] [place] [address] documented as of this encounter
--- OUTSIDE RECORDS SUMMARY | 2022-06-28 09:02 | XMS_ITS | Encounter Summary ---
:1960 Author Organization [employer] Address [address] [place] [address] Care Team Providers Name Role Phone Hansa Lewis APRYARED Ma Primary Care Provider Reason for Visit Reason Comments Other Encounter Details Date Type Department Care Team Description 08/18/2007 Telephone [facility] [address] Jose Bell RN Other Gastroenterology [address] [facility] [place] [address] Social History Tobacco Use Types Packs/Day Years Used Date Smoking Tobacco: Never Assessed Sex Assigned at Date Recorded Not on file documented as of this encounter Progress Notes Alexi Sheikh MD - 08/18/2007 10:42 AM CST Phone Note filed by Alexi Sheikh MD at 11/08/10 6669 Author: Alexi Sheikh MD Service: (none) Author Type: Physician Filed: 11/08/10 9989 Note Time: 08/18/07 1042 Status: Signed Courier: Alexi Sheikh MD (Physician) No show for [...] called back. MRCP and f/u appt made. TECHNICIAN documented in this encounter Plan of Treatment Not on filedocumented as of this encounter Visit Diagnoses Not on filedocumented in this encounter Care Teams Library Supervisor Relationship Specialty Start Date End Date Hansa Lewis APRN, DEVELOPING MACHINE TENDER PCP - General 10/22/10 11/30/12 [address] [place] [id number] documented as of this encounter
--- OUTSIDE RECORDS SUMMARY | 2022-06-28 09:02 | XMS_ITS | Encounter Summary ---
:1960 Author Organization [employer] Address [address] [place] [address] Care Team Providers Name Role Phone Hansa Lewis YARED NGUYỄN Primary Care Provider [phone] Encounter Details Date Type Department Care Team Description 10/14/2007 PN Conversion Only [place] [address] [place] [address] [place], [place] [address] (Wo rk) Social History Tobacco Use Types [...] Philip Nelson MD LAB_1 Performing Organization Address [facility] Phon e Number HP CONVERSION ALT (SGPT) (10/14/2007 9:01 AM CDT) [facility] gist Method Time Signature Alanine 24 4 - 55 HP CONVERSION Aminotransferase U/L Specimen (Source) Anatomical Collection Method Collection Time Re ceived Time Location / / Volume Laterality 10/14/2007 9:01 AM CDT Philip Nelson MD LAB_1 Performing Organization Address [facility] Phon e Number HP CONVERSION AST (10/14/2007 9:01 AM CDT) [facility] gist Method Time Signature Aspartate 23 0 - 45 HP CONVERSION Aminotransferase U/L Specimen (Source) Anatomical Collection Method Collection Time Re ceived Time Location / / Volume Laterality 10/14/2007 9:01 AM CDT Philip Nelson MD LAB_1 Performing Organization Address [facility] Phon e Number HP CONVERSION Bilirubin, Direct (10/14/2007 9:01 AM CDT) athologist Signature Bilirubin, 0.4 0.0 - 0.4 HP CONVERSION Direct mg/dL Specimen (Source) Anatomical Collection Method Collection Time Re ceived Time Location / / Volume Laterality 10/14/2007 9:01 AM CDT Philip Nelson MD LAB_1 Performing Organization Address [facility] Phon e Number HP CONVERSION (ABNORMAL) Bilirubin, Total (10/14/2007 9:01 AM CDT) athologist Signature Bilirubin 1.7 (H) 0.2 - 1.2 HP CONVERSION Total mg/dL Specimen (Source) Anatomical Collection Method Collection Time Re ceived Time Location / / Volume Laterality 10/14/2007 9:01 AM CDT Philip Nelson MD LAB_1 Performing Organization Address [facility] Phon e Number HP CONVERSION documented in this encounter Visit Diagnoses Not on filedocumented in this encounter Care Teams Plastics Supervisor Relationship Specialty Start Date End Date Hansa Lewis APRN, PLUMBING ENGINEERING DRAFTSPERSON PCP - General 10/22/10 11/30/12 [address] [place] [id number] documented as of this encounter
--- OUTSIDE RECORDS SUMMARY | 2022-06-28 09:02 | XMS_ITS | Encounter Summary ---
:1960 Author Organization [employer] Address [address] [address] Care Team Providers Name Role Phone Hansa Lewis APRN, YARED Primary Care Provider [phone] Encounter Details Date Type Department Care Team Description 10/14/2007 PN Conversion Only [place] [facility] N Hansa Lewis APRN, [address] [place] [address] [facility] [address] [place], [place] [address] (Wo rk) Social History [...] Non-Afr 60 >60 HP CONVERSION Am Comment: -Serbian and Dns-Tyvmugq-Tszyeun n reference range units: mL/min/1.73m2 Normal>60, moderate decrease 30 - 59, se alexia decrease 15 - 29, renal failure <15 mL/min/1.73 m2 Specimen (Source) Anatomical Collection Method Collection Time Re ceived Time Location / / Volume Laterality 10/14/2007 9:00 AM CDT Hansa Lewis APRAnil SOLUTION ENGINEER LAB_1 Performing Organization Address City/[facility] Code Phon e Number HP CONVERSION (ABNORMAL) Glucose (10/14/2007 9:00 AM CDT) P athologist Signature Length Of Fast 12.0 Hours HP CONVERSION Lab Glucose 105 (H) 60 - 100 HP CONVERSION mg/dL Specimen (Source) Anatomical Collection Method Collection Time Re ceived Time Location / / Volume Laterality 10/14/2007 9:00 AM CDT Hansa Lewis APRYARED Ma LAB_1 Performing Organization Address City/[facility] Phon e Number HP CONVERSION (ABNORMAL) Lipid Panel and Direct LDL(If Needed) (10/14/2007 9:00 AM CDT) [facility] gist Method Time Signature Length Of [...] Laterality 10/14/2007 9:00 AM CDT Hansa Lewis APRN YARED LAB_1 Performing Organization Address City/[facility] Phon e Number HP CONVERSION Hgb A1c [...] on filedocumented in this encounter Care Teams Surgeon'S Assistant Relationship Specialty Start Date End Date Hansa Lewis APRN, CNP PCP - General 10/22/10 11/30/12 [address] [place] [place] [id number] documented as of this encounter
--- OUTSIDE RECORDS SUMMARY | 2022-06-28 09:02 | XMS_ITS | Encounter Summary ---
:1960 Author Organization [employer] Address [address] [place] [address] Care Team Providers Name Role Phone Hansa Lewis APRN, CNP Primary Care Provider [phone] Reason for Visit Reason Comments Other Encounter Details Date Type Department Care Team Description 06/03/2007 Telephone [facility], Message Other [address] [place] [address] Social History Tobacco Use Types Packs/Day Years Used Date Smoking Tobacco: Never Assessed Sex Assigned at Date Recorded Not on file documented as of this encounter Progress Notes Center, Message - 06/03/2007 8:15 AM CST Phone Note filed by [employer] at 11/08/10816 Author: [employer] Service: (none) Author Type: (none) Filed: 11/08/10816 Note Time: 06/03/07814 Status: Signed Masonry Instructor: iv[employer] Prescription Refill Please provide enough refills to last until patient's next visit. Comment:-Appt on ([facility] Seq #:-[phone] Pharmacy Name:-[facility] Street or City:-[place] Clinician Name:-[facility] Name/Strength:-Omeprazole 20mg caps. Sig: Dose/Route/Freq:-Take 1 capsule daily. Quantity & Last Fill:- 06/02/07 Created on 03Jun2007 8:15am by BRIGIDA LEE J On 03Jun2007 11:19am REID MACIAS wrote: Renewed medication per medication refill protocol. OR INTERIOR DESIGNER documented in this encounter Plan of Treatment Not on filedocumented as of this encounter Visit Diagnoses Not on filedocumented in this encounter Care Teams Systems Program Manager Relationship Specialty Start Date End Date Hansa Lewis APRN, TOOL WORKER PCP - General 10/22/10 11/30/12 [address] [place] [address] documented as of this encounter
--- OUTSIDE RECORDS SUMMARY | 2022-06-28 09:02 | XMS_ITS | Encounter Summary ---
:1960 Author Organization [employer] Address [address], [place] [address] Care Team Providers Name Role Phone Hansa Lewis APRN, CNP Primary Care Provider [phone] Encounter Details Date Type Department Care Team Description 06/06/2007 Office Visit [facility] Hansa Lewis APRN, [facility] [place] [address] [address] [place] [address] [place] [address] [phone] (Wo rk) Social History Tobacco Use Types Packs/Day Years Used Date Smoking Tobacco: Never Assessed Sex Assigned at Date Recorded Not on file documented as of this encounter Last Filed Vital Signs Vital Sign Reading Time Taken Comments Blood Pressure 120/80 06/06/2007 8:21 AM CLINICAL PARTNER Pulse 72 06/06/2007 8:21 AM CLINICAL PARTNER Temperature - - Respiratory Rate - - Oxygen Saturation - - Inhaled Oxygen Concentration - - Weight 91.2 kg (200 lb 15.9 oz) 06/06/2007 8:21 AM C: 9 1.2kg CLINICAL PARTNER Height 184.2 cm (6' 0.5) 06/06/2007 8:21 AM C: 184.2cm CLINICAL PARTNER Body Mass Index 26.88 06/06/2007 8:21 AM CLINICAL PARTNER documented in this encounter Progress Notes Hansa Lewis APRN, YARED - 06/06/2007 12:01 AM CST Progress Notes signed by CRISTINA Steele at 06/30/07 1121 Author: CRISTINA Steele Service: (none) Author Type: (none) Filed: 11/10/10 0880 Note Time: 06/06/07 0001 Status: Signed Pillowcase Maker: CRISTINA Steele (Nurse Practitioner) NAME: JOSH MOSLEY MR#: [id number] ACCT: [id number] VISIT: [id number] DICTATING CLINICIAN: CRISTINA Steele JOB: [id number] LOC: 506 CLINIC PROGRESS NOTE DATE OF [...] on a p.r.n. basis with annual physicals. LAE:[id number] C: 06/07/07 09:14 DOCUMENT: [id number] ICAL PARTNER documented in this encounter Plan of Treatment Not on filedocumented as of this encounter Visit Diagnoses Not on filedocumented in this encounter Care Teams Adjuster Electrical Contacts Relationship Specialty Start Date End Date Hansa Lewis, VIBRATING SCREED OPERATOR, SENIOR TECHNICAL MANAGER PCP - General 4/3/11 5/12/13 [address] [place] [id number] documented as of this encounter
--- OUTSIDE RECORDS SUMMARY | 2022-06-28 09:02 | XMS_ITS | Encounter Summary ---
:1960 Author Organization [facility] Address [address] [place] [address] Care Team Providers Name Role Phone Hansa Lewis YARED NGUYỄN Primary Care Provider [phone] Encounter Details Date Type Department Care Team Description 03/17/2005 Office Visit [facility] [place] [address] [address] [place] [address] [phone] Social History Tobacco Use Types Packs/Day Years Used Date Smoking Tobacco: Never Assessed Sex Assigned at Date Recorded Not on file documented as of this encounter Last Filed Vital Signs Vital Sign Reading Time Taken Comments Blood Pressure 135/80 03/17/2005 9:58 AM CDT Pulse 53 03/17/2005 9:58 AM CDT Temperature 36.2 ??C (97.2 ??F) 03/17/2005 9:58 AM CDT C: 36 .2 C Respiratory Rate 12 03/17/2005 9:58 AM CDT Oxygen Saturation - - Inhaled Oxygen Concentration - - Weight - - Height - - Body Mass Index - - documented in this encounter Progress Notes Indigo Fabian MD - 03/17/2005 12:01 AM CDT Progress Notes signed by Indigo Fabian MD at 03/23/05 1425 Author: Indigo Fbaian MD Service: (none) Author Type: Physician Filed: 11/10/10 0637 Note Time: 03/17/05 0001 Status: Signed Product Lister: Indigo Fabian MD (Physician) NAME: JOSH MOSLEY MR: [id number] ACCT: [id number] VISIT: [id number] DICTATING CLINICIAN: INDIGO FABIAN MD JOB: [id number] CLINIC PROGRESS NOTE DATE OF VISIT: 03/17/2005 SUBJECTIVE: : 1960. Chief Complaint: Check right leg sutures. HISTORY OF PRESENT ILLNESS: A 45-year-old male had sutures placed about a week ago, in the leg. In for a recheck. OBJECTIVE: He does have an adhesive bandage type rash around his circumference, which is probably a reaction to latex or some of the ingredients of the bandage. Sutures site is a little red, but nontender. No drainage of purulent material. ASSESSMENT: Wound check of laceration site. PLAN: We elected to have him come back in 3 to 4 days. It is a little early for this to be taken off the leg, and he agreed to that. RWJ:[id number] C: 03/17/05 17:20 DOCUMENT: [id number] documented in this encounter Plan of Treatment Not on filedocumented as of this encounter Visit Diagnoses Not on filedocumented in this encounter Care Teams Skip Load Driver Relationship Specialty Start Date End Date Hansa Lewis APRN, STRETCHER LEVELER OPERATOR PCP - General 10/22/10 11/30/12 [address] [place] [address] documented as of this encounter
--- OUTSIDE RECORDS SUMMARY | 2022-06-28 09:02 | XMS_ITS | Encounter Summary ---
:1960 Author Organization [facility] Address [address] [place] [address] Care Team Providers Name Role Phone Hansa Lewis APRN, YARED Primary Care Provider [phone] Encounter Details Date Type Department Care Team Description 06/13/2007 PN Conversion Only [facility] Hansa Lewis APRN, [address] [employer] [place] [address] [facility] [address] [place], [place] [address] (Wo rk) Social History Tobacco Use Types Packs/Day Years Used Date Smoking Tobacco: Never Assessed Sex Assigned at Date Recorded Not on file documented as of this encounter Plan of Treatment Not on filedocumented as of this encounter Procedures Procedure Name Priority Date/Time Associated Comments Diagnosis ELECTROLYTES (NA, K, Routine 06/13/2007 10:23 Res ults for this CL, BICARB) AM CLINICAL CYTOGENETICIST procedure are i n the results section. GLUCOSE Routine 06/13/2007 10:23 Results for this AM CLINICAL CYTOGENETICIST procedure are i n the results section. LIPID PANEL AND Routine 06/13/2007 10:23 Results for this DIRECT LDL(IF NEEDED) AM CLINICAL CYTOGENETICIST proced ure are in the results section. CREATININE / GFR Routine 06/13/2007 10:23 Results for this AM CLINICAL CYTOGENETICIST procedure are i n the results section. GT (GAMMA GT) Routine 06/13/2007 10:23 Results fo r this AM CLINICAL CYTOGENETICIST procedure are i n the results section. HGB A1C Routine 06/13/2007 10:23 Results for this AM CLINICAL CYTOGENETICIST procedure are i n the results section. ALT (SGPT) Routine 06/13/2007 10:23 Results for this AM CLINICAL CYTOGENETICIST procedure are i n the results section. AST Routine 06/13/2007 10:23 Results for this AM CLINICAL CYTOGENETICIST procedure are i n the results section. LD TOTAL (LDH) Routine 06/13/2007 10:23 Results f or this AM CLINICAL CYTOGENETICIST procedure are i n the results section. BUN Routine 06/13/2007 10:23 Results for this AM CLINICAL CYTOGENETICIST procedure are i n the results section. BILIRUBIN, TOTAL Routine 06/13/2007 10:23 Results for this AM CLINICAL CYTOGENETICIST procedure are i n the results section. ALKALINE PHOSPHATASE, Routine 06/13/2007 10:23 Re sults for this TOTAL AM CLINICAL CYTOGENETICIST procedure are i n the results section. ALBUMIN Routine 06/13/2007 10:23 Results for this AM CLINICAL CYTOGENETICIST procedure are i n the results section. documented in this encounter Results Albumin (06/13/2007 10:23 AM CLINICAL CYTOGENETICIST) P athologist Signature Albumin 4.6 3.4 - 5.0 HP CONVERSION g/dL Specimen (Source) Anatomical Collection Method Collection Time Re ceived Time Location / / Volume Laterality 06/13/2007 10:23 AM CLINICAL CYTOGENETICIST Hansa Lewis APRN, CNP LAB_1 Performing Organization Address City/[facility]/ZIP Code Phon e Number HP CONVERSION Alkaline Phosphatase, Total (06/13/2007 10:23 AM CLINICAL CYTOGENETICIST) P athologist Signature Alk Phos 61 25 - 135 U/L HP CONVERSION Specimen (Source) Anatomical Collection Method Collection Time Re ceived Time Location / / Volume Laterality 06/13/2007 10:23 AM CLINICAL CYTOGENETICIST Hansa Lewis APRN, CNP LAB_1 Performing Organization Address City/[facility]/ZIP Code Phon e Number HP CONVERSION (ABNORMAL) ALT (SGPT) (06/13/2007 10:23 AM CLINICAL CYTOGENETICIST) Patholo gist Method Time Signature Alanine 63 (H) 4 - 55 HP CONVERSION Aminotransferase U/L Specimen (Source) Anatomical Collection Method Collection Time Re ceived Time Location / / Volume Laterality 06/13/2007 10:23 AM CLINICAL CYTOGENETICIST Hansa Lewis APRN, CNP LAB_1 Performing Organization Address City/[facility]/ZIP Code Phon e Number HP CONVERSION AST (06/13/2007 10:23 AM CLINICAL CYTOGENETICIST) Patholo gist Method Time Signature Aspartate 32 0 - 45 HP CONVERSION Aminotransferase U/L Specimen (Source) Anatomical Collection Method Collection Time Re ceived Time Location / / Volume Laterality 06/13/2007 10:23 AM CLINICAL CYTOGENETICIST Hansa Lewis APRYARED Ma LAB_1 Performing Organization Address [facility] Code Phon e Number HP CONVERSION Bilirubin, Total (06/13/2007 10:23 AM CLINICAL CYTOGENETICIST) P athologist Signature Bilirubin Total 1.0 0.2 - 1.2 HP CONVERSION mg/dL Specimen (Source) Anatomical Collection Method Collection Time Re ceived Time Location / / Volume Laterality 06/13/2007 10:23 AM CLINICAL CYTOGENETICIST Hansa Lewis APRYARED Ma LAB_1 Performing Organization Address [facility] Phon e Number HP CONVERSION BUN (06/13/2007 10:23 AM CLINICAL CYTOGENETICIST) P athologist Signature Blood Urea 19 5 - 26 HP CONVERSION Nitrogen mg/dL Specimen (Source) Anatomical Collection Method Collection Time Re ceived Time Location / / Volume Laterality 06/13/2007 10:23 AM CLINICAL CYTOGENETICIST Hansa Lewis APRYARED Ma LAB_1 Performing Organization Address [facility] Phon e Number HP CONVERSION (ABNORMAL) Creatinine / GFR (06/13/2007 10:23 AM CLINICAL CYTOGENETICIST) Analysis Performed At Patho logist Time Signature Creatinine 1.5 (H) 0.4 - 1.3 HP CONVERSION Serum mg/dL Est GFR >60 >60 HP CONVERSION Am Est GFR Non-Afr 51 (L) >60 HP CONVERSION Am Comment: -Djiboutian and Cst-Rniyicb-Gynwhux n reference range units: mL/min/1.73m2 Normal>60, moderate decrease 30 - 59, se alexia decrease 15 - 29, renal failure <15 mL/min/1.73 m2 Specimen (Source) Anatomical Collection Method Collection Time Re ceived Time Location / / Volume Laterality 06/13/2007 10:23 AM CLINICAL CYTOGENETICIST Hansa Lewis APRYARED Ma LAB_1 Performing Organization Address City/[facility] Phon e Number HP CONVERSION (ABNORMAL) Glucose (06/13/2007 10:23 AM CLINICAL CYTOGENETICIST) P athologist Signature Length Of Fast 12.0 Hours HP CONVERSION Lab Glucose 118 (H) 60 - 100 HP CONVERSION mg/dL Specimen (Source) Anatomical Collection Method Collection Time Re ceived Time Location / / Volume Laterality 06/13/2007 10:23 AM CLINICAL CYTOGENETICIST Hansa Joshua NGUYỄN CNP LAB_1 Performing Organization Address [facility] Code Phon e Number HP CONVERSION (ABNORMAL) LD Total (LDH) (06/13/2007 10:23 AM CLINICAL CYTOGENETICIST) [facility] gist Method Time Signature Lactic Acid 190 (H) 90 - 180 HP CONVERSION Dehydrogenase U/L Specimen (Source) Anatomical Collection Method Collection Time Re ceived Time Location / / Volume Laterality 06/13/2007 10:23 AM CLINICAL CYTOGENETICIST Hansa Lewis APRN, CNP LAB_1 Performing Organization Address [facility] Phon e Number HP CONVERSION Electrolytes (NA, K, CL, Bicarb) (06/13/2007 10:23 AM CLINICAL CYTOGENETICIST) athologist Signature Sodium 141 137 - 147 HP CONVERSION mEq/L Potassium 4.9 3.5 - 5.2 HP CONVERSION mEq/L Chloride 109 98 - 110 HP CONVERSION mEq/L Bicarbonate 28 23 - 33 HP CONVERSION mmol/L Specimen (Source) Anatomical Collection Method Collection Time Re ceived Time Location / / Volume Laterality 06/13/2007 10:23 AM CLINICAL CYTOGENETICIST Hansa Lewis APRN, CNP LAB_1 Performing Organization Address [facility] Phon e Number HP CONVERSION (ABNORMAL) Lipid Panel and Direct LDL(If Needed) (06/13/2007 10:23 AM CLINICAL CYTOGENETICIST) [facility] gist Method Time Signature Length Of Fast [...] / / Volume Laterality 06/13/2007 10:23 AM CLINICAL CYTOGENETICIST Hansa Lewis APRN, CNP LAB_1 Performing Organization Address [facility]/ZIP [facility] Phon e Number HP CONVERSION GT (Gamma GT) (06/13/2007 10:23 AM CLINICAL CYTOGENETICIST) P athologist Signature Gamma-Glutamyl 37 1 - 48 U/L HP CONVERSION Transferase Specimen (Source) Anatomical Collection Method Collection Time Re ceived Time Location / / Volume Laterality 06/13/2007 10:23 AM CLINICAL CYTOGENETICIST Hansa Joshua NGUYỄN CNP LAB_1 Performing Organization Address [facility] Phon e Number HP CONVERSION Hgb A1c (06/13/2007 10:23 AM CLINICAL CYTOGENETICIST) athologist Signature HGB A1C 6.0 <6.0 % HP CONVERSION Specimen (Source) Anatomical Collection Method Collection Time Re ceived Time Location / / Volume Laterality 06/13/2007 10:23 AM CLINICAL CYTOGENETICIST Hansa Joshua NGUYỄN CNP LAB_1 Performing Organization Address [facility] Phon e Number HP CONVERSION documented in this encounter Visit Diagnoses Not on filedocumented in this encounter Care Teams Wharf Operator Relationship Specialty Start Date End Date Hansa Lewis APRN, CNP PCP - General 10/22/10 11/30/[address] [place] [address] documented as of this encounter
--- OUTSIDE RECORDS SUMMARY | 2022-06-28 09:02 | XMS_ITS | Encounter Summary ---
:1960 Author Organization [facility] Address [address] [place] [address] Care Team Providers Name Role Phone Hanas Lewis APRN, CNP Primary Care Provider [phone] Encounter Details Date Type Department Care Team Description 07/08/2007 Office Visit [facility] [address] [address] [place] [address] Social History Tobacco Use Types Packs/Day Years [...] ~Shorthand Note Completed on: 07/08/2007 9:49 AM KILN WORKER documented in this encounter Plan of Treatment Not on filedocumented as of this encounter Visit Diagnoses Not on filedocumented in this encounter Care Teams Administrative Professional Relationship Specialty Start Date End Date Hansa Lewis APRN, NURSING ASSOC PCP - General 10/22/10 11/30/12 [address] [place] [address] documented as of this encounter
--- OUTSIDE RECORDS SUMMARY | 2022-06-28 09:02 | XMS_ITS | Encounter Summary ---
:1960 Author Organization [facility] Address [address] [place] [address] Care Team Providers Name Role Phone Hansa Lewis APRN, YARED Primary Care Provider [phone] Encounter Details Date Type Department Care Team Description 06/06/2007 PN Conversion Only [place] [facility] Hansa Lewis APRN, [address] [place] [address] [facility] [address] [place], [place] [address] (Wo rk) Social History Tobacco Use Types Packs/Day Years Used Date Smoking Tobacco: Never Assessed Sex Assigned at Date Recorded Not on file documented as of this encounter Plan of Treatment Not on filedocumented as of this encounter Procedures Procedure Name Priority Date/Time Associated Comments Diagnosis ELECTROLYTES (NA, K, Routine 06/06/2007 8:55 AM R esults for this CL, BICARB) SALES ENGINEER ENGINEERED PRODUCTS procedure are i n the results section. GLUCOSE Routine 06/06/2007 8:55 AM Results f or this SALES ENGINEER ENGINEERED PRODUCTS procedure are i n the results section. LIPID PANEL AND Routine 06/06/2007 8:55 AM Result s for this DIRECT LDL(IF NEEDED) SALES ENGINEER [employer] PRODU[employer] proced ure are in the results section. CREATININE / GFR Routine 06/06/2007 8:55 AM Resul ts for this SALES ENGINEER ENGINE[employer]ED PRODUCTS procedure are i n the results section. HEMOGLOBIN, BLOOD Routine 06/06/2007 8:55 AM Resu lts for this SALES ENGINEER ENG[employer]ED PRODUCTS procedure are i n the results section. BUN Routine 06/06/2007 8:55 AM Results f or this SALES ENGINEER [employer]ODUCTS procedure are i n the results section. documented in this encounter Results BUN (06/06/2007 8:55 AM SALES ENGINEER [employer] PRODUCTS) P athologist Signature Blood Urea 22 5 - 26 HP CONVERSION Nitrogen mg/dL Specimen (Source) Anatomical Collection Method Collection Time Re ceived Time Location / / Volume Laterality 06/06/2007 8:55 AM SALES ENGINEER ENGINEERED PRODUCTS Hansa Joshua NGUYỄN CNP LAB_1 Performing Organization Address City/[facility] Code Phon e Number HP CONVERSION (ABNORMAL) Creatinine / GFR (06/06/2007 8:55 AM SALES ENGINEER ENGINE[employer]ED PRODUCTS) Analysis Performed At Patho logist Time Signature Creatinine 1.5 (H) 0.4 - 1.3 HP CONVERSION Serum mg/dL Est GFR >60 >60 HP CONVERSION Am Est GFR Non-Afr 51 (L) >60 HP CONVERSION Am Comment: -Chilean and Oor-Jdqfzhm-Zgiwfwi n reference range units: mL/min/1.73m2 Normal>60, moderate decrease 30 - 59, se alexia decrease 15 - 29, renal failure <15 mL/min/1.73 m2 Specimen (Source) Anatomical Collection Method Collection Time Re ceived Time Location / / Volume Laterality 06/06/2007 8:55 AM SALES ENGINEER ENGINEERED PRODUCTS Hansa Joshua NGUYỄN CNP LAB_1 Performing Organization Address [facility] Code Phon e Number HP CONVERSION (ABNORMAL) Glucose (06/06/2007 8:55 AM SALES ENGINEER [employer]ODUCTS) P athologist Signature Length Of Fast 12.0 Hours HP CONVERSION Lab Glucose 135 (H) 60 - 100 HP CONVERSION mg/dL Specimen (Source) Anatomical Collection Method Collection Time Re ceived Time Location / / Volume Laterality 06/06/2007 8:55 AM SALES ENGINEER ENG[employer]ODUCTS Hansa Joshua NGUYỄN CNP LAB_1 Performing Organization Address City/[facility] Code Phon e Number HP CONVERSION Electrolytes (NA, K, CL, Bicarb) (06/06/2007 8:55 AM SALES ENGINEER [employer]INE[employer] PRODUCTS) P athologist Signature Sodium 141 137 - 147 HP CONVERSION mEq/L Potassium 4.3 3.5 - 5.2 HP CONVERSION mEq/L Chloride 107 98 - 110 HP CONVERSION mEq/L Bicarbonate 27 23 - 33 HP CONVERSION mmol/L Specimen (Source) Anatomical Collection Method Collection Time Re ceived Time Location / / Volume Laterality 06/06/2007 8:55 AM SALES ENGINEER ENGINEERED PRODUCTS Hansa Lewis APRN, CNP LAB_1 Performing Organization Address [facility] Phon e Number HP CONVERSION (ABNORMAL) Lipid Panel and Direct LDL(If Needed) (06/06/2007 8:55 AM SALES ENGINEER ENGINEERED PRODUCTS) Patholo gist Method Time Signature Length Of [...] / / Volume Laterality 06/06/2007 8:55 AM SALES ENGINEER ENGINEERED PRODUCTS Hansa Lewis APRN, CNP LAB_1 Performing Organization Address [facility] Phon e Number HP CONVERSION Hemoglobin, Blood (06/06/2007 8:55 AM SALES ENGINEER [employer]ODUCTS) P athologist Signature Hemoglobin 16.2 13.4 - 17.5 HP CONVERSION gm/dL Specimen (Source) Anatomical Collection Method Collection Time Re ceived Time Location / / Volume Laterality 06/06/2007 8:55 AM SALES ENGINEER ENGINEERED PRODUCTS Hansa Lewis APRN, CNP LAB_1 Performing Organization Address [facility] Phon e Number HP CONVERSION documented in this encounter Visit Diagnoses Not on filedocumented in this encounter Care Teams Structural Analyst Relationship Specialty Start Date End Date aHnsa Lewis APRN, CNP PCP - General 10/22/10 11/30/12 [address] [address] [address] documented as of this encounter
--- OUTSIDE RECORDS SUMMARY | 2022-06-28 09:02 | XMS_ITS | Encounter Summary ---
:1960 Author Organization [facility] Address [address] [place] [address] Care Team Providers Name Role Phone Hansa Lewis APRN, CNP Primary Care Provider [phone] Reason for Visit Reason Comments Other Encounter Details Date Type Department Care Team Description 01/17/2007 Telephone [facility], Message Other [address] [place], [place] [address] Social History Tobacco Use Types Packs/Day Years Used Date Smoking Tobacco: Never Assessed Sex Assigned at Date Recorded Not on file documented as of this encounter [facility], Message - 01/17/2007 9:01 AM CDT Phone Note filed by RV ID at 11/07/10 2733 Author: RV ID Service: (none) Author Type: (none) Filed: 11/07/10 0446 Note Time: 01/17/07 0901 Status: Signed Project Manager Process Development: RV ID Non -Symptom Message from Front Line Caller Name/Relationship:veronica/ Primary Timber Treatment Plant Operator:timothy Message:went on vacation for 7 days and forgot meds. please send rx's to [facility], [place], [place], ph [phone]---atenolol 50 mg, prilosec 20 mg & prinivil 20 mg. Typesetter Perforator Operator:veronica or samanta Best call back number:[phone] Best time to call back:today Is it [...] Done. Acknowledged by MEGHAN FARFAN on 12:59pm ET MAKER documented in this encounter Plan of Treatment Not on filedocumented as of this encounter Visit Diagnoses Not on filedocumented in this encounter Care Teams Auto Inspection Specialist Relationship Specialty Start Date End Date Hansa Lewis APRN, FLAT SCREEN WORKER PCP - General 10/22/10 11/30/12 [address] [place] [address] documented as of this encounter
--- OUTSIDE RECORDS SUMMARY | 2022-06-28 09:02 | XMS_ITS | Encounter Summary ---
:1960 Author Organization [employer] Address [address] [address] Care Team Providers Name Role Phone Hansa Lewis APRN, CNP Primary Care Provider [phone] Encounter Details Date Type Department Care Team Description 06/13/2007 Office Visit [place] [facility] Hansa Lewis APRN, [facility] [address] [address] [place] [address] [place] [address] [phone] (Wo rk) Social History Tobacco Use Types Packs/Day Years Used Date Smoking Tobacco: Never Assessed Sex Assigned at Date Recorded Not on file documented as of this encounter Last Filed Vital Signs Vital Sign Reading Time Taken Comments Blood Pressure 122/72 06/13/2007 9:39 AM PLATING AND POINT ASSEMBLY SUPERVISOR Pulse 55 06/13/2007 9:39 AM PLATING AND POINT ASSEMBLY SUPERVISOR Temperature - - Respiratory Rate - - Oxygen Saturation - - Inhaled Oxygen Concentration - - Weight 92.1 kg (202 lb 15.6 oz) 06/13/2007 9:39 AM PLATING AND POINT ASSEMBLY SUPERVISOR C: 92.1kg Height - - Body Mass Index 27.15 06/06/2007 8:21 AM PLATING AND POINT ASSEMBLY SUPERVISOR documented in this encounter Progress Notes Hansa Lewis APRN, YARED - 06/13/2007 12:01 AM CST Progress Notes signed by CRISTINA Steele at 07/01/07 0822 Author: CRISTINA Steele Service: (none) Author Type: (none) Filed: 11/10/10 2307 Note Time: 06/13/07 0001 Status: Signed Adult Crossing Guard: CRISTINA Steele (Nurse Practitioner) NAME: JOSH MOSLEY MR#: [id number] ACCT: [id number] VISIT: [id number] DICTATING CLINICIAN: CRISTINA Steele JOB: [id number] LOC: 506 CLINIC PROGRESS NOTE DATE OF [...] No food intolerances. No blurred vision or txfj-yj-acba lesions. No chest pain or palpitations. PAST [...] glucose to compare, also again to the [email or web address] insurance physical which showed a normal level, [...] to clinic as recommended. PLAN: See assessment. LAE:[id number] C: 06/13/07 10:54 DOCUMENT: [id number] ING AND POINT ASSEMBLY SUPERVISOR documented in this encounter Plan of Treatment Not on filedocumented as of this encounter Visit Diagnoses Not on filedocumented in this encounter Care Teams Unemployment Insurance Hearing Officer Relationship Specialty Start Date End Date Hansa Lewis, DELMA, CHANNEL OPENER OUTSOLES PCP - General 10/22/10 11/30/12 [address] [place] [address] documented as of this encounter
--- OUTSIDE RECORDS SUMMARY | 2022-06-28 09:02 | XMS_ITS | Encounter Summary ---
:1960 Author Organization [employer] Address [address] [place] [address] Care Team Providers Name Role Phone Hansa Lewis YARED NGUYỄN Primary Care Provider [phone] Encounter Details Date Type Department Care Team Description 06/24/2007 PN Conversion Only [facility] [address] [place] [address] Social History Tobacco Use Types Packs/Day Years Used Date Smoking Tobacco: Never Assessed Sex Assigned at Date Recorded Not on file documented as of this encounter Plan of Treatment Not on filedocumented as of this encounter Procedures Procedure Name Priority Date/Time Associated Diagnosis Comme nts US ABD RUQ ORGANS Routine 06/24/2007 8:12 AM Resu lts for this SPEEDOMETER MECHANIC procedure are i n the results section. documented in this encounter Results US Abd RUQ Organs (06/24/2007 8:12 AM SPEEDOMETER MECHANIC) Anatomical Region Laterality Modality Abdomen Other Specimen (Source) Anatomical Location Collection Method / Collectio n Time Received Time / Laterality Volume Impressions 06/24/2007 8:12 AM SPEEDOMETER MECHANIC : ??Sonographic findings consistent with diffuse fatty infiltration of the liver. ??Otherwise n ormal. MT/car [id number] Dictating TITO PLATA Radiologist Narrative 06/24/2007 8:12 AM SPEEDOMETER MECHANIC HISTORY: ??Abnormal LFTs. REPORT: ??The pancreas is normal. ??The liver demonstrates diffusely increased echotexture without focal abno rmality. This is consistent with fatty infiltration. ??No intrahepat ic duct dilation. ??No masses, no ascites. ??The gallbladder is normal. ??The extrahepatic common duct is normal, measuring 4 mm. ??The right k idney is normal in size measuring 10.4 cm in length and there is no evidence of stone, mass, or hydronephrosis. Procedure Note Tito Wise MD - 09/22/2016For matting of this note might be different from the original. HISTORY: Abnormal LFTs. REPORT: The pancreas is normal. The live r demonstrates diffusely increased echotexture without focal abno rmality. This is consistent with fatty infiltration. No intrahepatic duct dilation. No masses, no ascites. The gallbladder is normal. T he extrahepatic common duct is normal, measuring 4 mm. The right kid collin is normal in size measuring 10.4 cm in length and there is no evidence of stone, mass, or hydronephrosis. IMPRESSION : Sonographic findings consistent with d iffuse fatty infiltration of the liver. Otherwise nor mal. MT/car [id number] Dictating TITO PLATA Radiologist Hansa Lewis APRN, CNP RAD US documented in this encounter Visit Diagnoses Not on filedocumented in this encounter Care Teams Risk Assessment Consultant Relationship Specialty Start Date End Date Hansa Lewis APRN, CNP PCP - General 10/22/10 11/30/12 [address] [place] [address] documented as of this encounter
--- OUTSIDE RECORDS SUMMARY | 2022-06-28 09:02 | XMS_ITS | Encounter Summary ---
:1960 Author Organization [employer] Address [address] [place] [address] Care Team Providers Name Role Phone Hansa Lewis YARED NGUYỄN Primary Care Provider [phone] Reason for Visit Reason Comments Other Encounter Details Date Type Department Care Team Description 08/05/2007 Telephone [facility] Jose Bell RN Other Gastroenterology [address] [facility] [place] [address] Social History Tobacco Use Types Packs/Day Years Used Date Smoking Tobacco: Never Assessed Sex Assigned at Date Recorded Not on file documented as of this encounter Progress Notes Jose Bell RN - 08/05/2007 9:08 AM CST Phone Note filed by Jose Bell RN at 11/08/10 0262 Author: Jose Bell RN Service: (none) Author Type: Registered Nurse Filed: 11/08/10 8637 Note Time: 08/05/07 0908 Status: Signed Hand Box Coverer: Jose Bell RN (Registered Nurse) pt's Veronica [...] wrote: pt's called back, lab slip to [facility]. [facility] [place] will read and call. appt made as requested. ME TANNING DRUM OPERATOR documented in this encounter Plan of Treatment Not on filedocumented as of this encounter Visit Diagnoses Not on filedocumented in this encounter Care Teams Research Microbiologist Relationship Specialty Start Date End Date Hansa Lewis APRN, PARTS SALES REPRESENTATIVE PCP - General 10/22/10 11/30/[address] [place], [place] [address] documented as of this encounter
--- OUTSIDE RECORDS SUMMARY | 2022-06-28 09:02 | XMS_ITS | Encounter Summary ---
:1960 Author Organization [employer] Address [address] [place] [address] Care Team Providers Name Role Phone Hansa Lewis APRN, CNP Primary Care Provider [phone] Reason for Visit Reason Comments Other Encounter Details Date Type Department Care Team Description 06/23/2007 Telephone [facility], Message Other [address] [place] [address] Social History Tobacco Use Types Packs/Day Years Used Date Smoking Tobacco: Never Assessed Sex Assigned at Date Recorded Not on file documented as of this encounter Progress Notes Center, Message - 06/23/2007 8:13 AM CST Phone Note filed by [email or web address] at 11/08/10933 Author: [email or web address] Service: (none) Author Type: (none) Filed: 11/08/10933 Note Time: 06/23/07812 Status: Signed Childrens Club Attendant: [email or web address] Prescription Refill Please provide enough refills to last until patient's next visit. Comment:- Pharmacy Seq #:-[phone] Pharmacy Name:-[facility] Street or City:-[place] Clinician Name:-[facility] Name/Strength:-Lisinopril 20mg tabs. Sig: Dose/Route/Freq:-Take 1 tab daily. Quantity & Last Fill:-05/21/07 Created on [id number] 8:13am by BRIGIDA LEE J On [id number] 9:31am REID MACIAS wrote: Renewed medication per medication refill protocol. PRESIDENT documented in this encounter Plan of Treatment Not on filedocumented as of this encounter Visit Diagnoses Not on filedocumented in this encounter Care Teams Sales And Marketing Agent Relationship Specialty Start Date End Date Hansa Lewis APRN, BUREAU CHIEF PCP - General 10/22/10 11/30/12 [address] [address] [address] documented as of this encounter
--- OUTSIDE RECORDS SUMMARY | 2022-06-28 09:02 | XMS_ITS | Encounter Summary ---
:1960 Author Organization [employer] Address [address] [address] Care Team Providers Name Role Phone Hansa Lewis APRYARED Ma Primary Care Provider Encounter Details Date Type Department Care Team Description 03/10/2005 Office Visit [facility] [place] [address] [address] [place] [address] [phone] Social History Tobacco Use Types Packs/Day Years [...] 0629 Note Time: 03/10/05 0001 Status: Signed Sports Athletic Trainer: Jose A Dixon MD (Physician) NAME: JOSH MOSLEY MR: [id number] ACCT: [id number] VISIT: [id number] DICTATING CLINICIAN: JOSE A DIXON MD JOB: [id number] CLINIC PROGRESS NOTE DATE OF VISIT: 03/10/2005 [...] 14 days, return to consider suture removal. BOR:[id number] C: 03/11/05 14:29 DOCUMENT: [id number] documented in this encounter Plan of Treatment Not on filedocumented as of this encounter Visit Diagnoses Not on filedocumented in this encounter Care Teams Client Executive Relationship Specialty Start Date End Date Hansa Lewis APRN, LAN/WAN ENGINEER PCP - General 10/22/10 11/30/12 [address] [place] [address] documented as of this encounter
--- OUTSIDE RECORDS SUMMARY | 2022-06-28 09:02 | XMS_ITS | Encounter Summary ---
:1960 Author Organization [employer] Address [address] [place] [address] Care Team Providers Name Role Phone Hansa Lewis YARED NGUYỄN Primary Care Provider [phone] Reason for Visit Reason Comments Other Encounter Details Date Type Department Care Team Description 09/02/2007 Telephone [facility] 6500 Jose Bell RN Other Gastroenterology [address] [facility] [place] [address] Social History Tobacco Use Types Packs/Day Years Used Date Smoking Tobacco: Never Assessed Sex Assigned at Date Recorded Not on file documented as of this encounter Progress Notes Jose Bell RN - 09/02/2007 10:00 AM CST Phone Note filed by Jose Bell RN at 11/08/10 1858 Author: Jose Bell RN Service: (none) Author Type: Registered Nurse Filed: 11/08/10 1416 Note Time: 09/02/07 1000 Status: Signed Software Engineer Kernel: Jose Bell RN (Registered Nurse) Veronica, pt's [...] 10:54am Acknowledged by JOSE BELL on 1:59pm ER documented in this encounter Plan of Treatment Not on filedocumented as of this encounter Visit Diagnoses Not on filedocumented in this encounter Care Teams Control Systems Drafting Officer Relationship Specialty Start Date End Date Hansa Lewis, DELMA, LIME KILN WORKER HELPER PCP - General 10/22/10 11/30/12 [address] [address] [address] documented as of this encounter
--- OUTSIDE RECORDS SUMMARY | 2022-06-28 09:02 | XMS_ITS | Encounter Summary ---
:1960 Author Organization [employer] Address [address] [place] [address] Care Team Providers Name Role Phone Lilialynnette Hansa NGUYỄN CNP Primary Care Provider [phone] Encounter Details Date Type Department Care Team Description 08/07/2007 PN Conversion Only [facility] [address] [place] [address] Social History Tobacco Use Types Packs/Day Years Used Date Smoking Tobacco: Never Assessed Sex Assigned at Date Recorded Not on file documented as of this encounter Plan of Treatment Not on filedocumented as of this encounter Procedures Procedure Name Priority Date/Time Associated Diagnosis Comme nts CT ABD W/WO IV CONT Routine 08/07/2007 8:27 AM Re sults for this MACHINIST 2ND SHIFT procedure are i n the results section. documented in this encounter Results CT Abd W/WO IV Cont (08/07/2007 8:27 AM MACHINIST 2ND SHIFT) Anatomical Region Laterality Modality Abdomen Other Specimen (Source) Anatomical Location Collection Method / Collectio n Time Received Time / Laterality Volume Narrative 08/07/2007 8:27 AM MACHINIST 2ND SHIFT The examination was performed without contrast and [...] the l iver. ??Otherwise negative abdomen CT. [id number] Dictating LARRY CHERY MD Procedure Note Larry [...] the omar er. Otherwise negative abdomen CT. [id number] Dictating LARRY CHERY MD Philip Nelson MD RAD CT documented in this encounter Visit Diagnoses Not on filedocumented in this encounter Care Teams Production Illustrator Relationship Specialty Start Date End Date Hansa Lewis APRN, POTTER OR CERAMIC ARTIST PCP - General 10/22/10 11/30/12 [address] [address] [place] [address] documented as of this encounter
--- OUTSIDE RECORDS SUMMARY | 2022-06-28 09:02 | XMS_ITS | Encounter Summary ---
:1960 Author Organization [employer] Address [address] [place] [address] Care Team Providers Name Role Phone Hansa Lewis APRN, YARED Primary Care Provider [phone] Encounter Details Date Type Department Care Team Description 07/28/2007 PN Conversion Only [facility] Hansa Lewis APRN, [address] [place] [address] [facility] [address] [place], [place] [address] (Wo rk) Social History Tobacco Use Types Packs/Day Years Used Date Smoking Tobacco: Never Assessed Sex Assigned at Date Recorded Not on file documented as of this encounter Plan of Treatment Not on filedocumented as of this encounter Procedures Procedure Name Priority Date/Time Associated Comments Diagnosis ELECTROLYTES (NA, K, Routine 07/28/2007 5:09 PM R esults for this CL, BICARB) HOUSE ADMIN procedure are i n the results section. CREATININE / GFR Routine 07/28/2007 5:09 PM Resul ts for this HOUSE ADMIN procedure are i n the results section. ALT (SGPT) Routine 07/28/2007 5:09 PM Results f or this HOUSE ADMIN procedure are i n the results section. AST Routine 07/28/2007 5:09 PM Results f or this HOUSE ADMIN procedure are i n the results section. LD TOTAL (LDH) Routine 07/28/2007 5:09 PM Results for this HOUSE ADMIN procedure are i n the results section. BUN Routine 07/28/2007 5:09 PM Results f or this HOUSE ADMIN procedure are i n the results section. BILIRUBIN, TOTAL Routine 07/28/2007 5:09 PM Resul ts for this HOUSE ADMIN procedure are i n the results section. documented in this encounter Results ALT (SGPT) (07/28/2007 5:09 PM HOUSE ADMIN) [facility] Method Time Signature Alanine 53 4 - 55 HP CONVERSION Aminotransferase U/L Specimen (Source) Anatomical Collection Method Collection Time Re ceived Time Location / / Volume Laterality 07/28/2007 5:09 PM HOUSE ADMIN Hansa Lewis APRYARED Ma LAB_1 Performing Organization Address City/[facility] Phon e Number HP CONVERSION AST (07/28/2007 5:09 PM HOUSE ADMIN) [facility] gist Method Time Signature Aspartate 35 0 - 45 HP CONVERSION Aminotransferase U/L Specimen (Source) Anatomical Collection Method Collection Time Re ceived Time Location / / Volume Laterality 07/28/2007 5:09 PM HOUSE ADMIN Hansa Lewis APRYARED Ma LAB_1 Performing Organization Address [facility] Phon e Number HP CONVERSION (ABNORMAL) Bilirubin, Total (07/28/2007 5:09 PM HOUSE ADMIN) P athologist Signature Bilirubin 1.3 (H) 0.2 - 1.2 HP CONVERSION Total mg/dL Specimen (Source) Anatomical Collection Method Collection Time Re ceived Time Location / / Volume Laterality 07/28/2007 5:09 PM HOUSE ADMIN Hansa Lewis APRYARED Ma LAB_1 Performing Organization Address [facility] Code Phon e Number HP CONVERSION BUN (07/28/2007 5:09 PM HOUSE ADMIN) P athologist Signature Blood Urea 21 5 - 26 HP CONVERSION Nitrogen mg/dL Specimen (Source) Anatomical Collection Method Collection Time Re ceived Time Location / / Volume Laterality 07/28/2007 5:09 PM HOUSE ADMIN Hansa Lewis APRNYARED LAB_1 Performing Organization Address City/[facility] Phon e Number HP CONVERSION (ABNORMAL) Creatinine / GFR (07/28/2007 5:09 PM HOUSE ADMIN) Analysis Performed At Patho logist Time Signature Creatinine 1.4 (H) 0.4 - 1.3 HP CONVERSION Serum mg/dL Est GFR >60 >60 HP CONVERSION Am Est GFR Non-Afr 55 (L) >60 HP CONVERSION Am Comment: -Singaporean and Gjn-Gxqqacc-Iuuijra n reference range units: mL/min/1.73m2 Normal>60, moderate decrease 30 - 59, se alexia decrease 15 - 29, renal failure <15 mL/min/1.73 m2 Specimen (Source) Anatomical Collection Method Collection Time Re ceived Time Location / / Volume Laterality 07/28/2007 5:09 PM HOUSE ADMIN Hansa Lewis APRN, CNP LAB_1 Performing Organization Address City/[facility] Phon e Number HP CONVERSION (ABNORMAL) LD Total (LDH) (07/28/2007 5:09 PM HOUSE ADMIN) Patholo gist Method Time Signature Lactic Acid 181 (H) 90 - 180 HP CONVERSION Dehydrogenase U/L Specimen (Source) Anatomical Collection Method Collection Time Re ceived Time Location / / Volume Laterality 07/28/2007 5:09 PM HOUSE ADMIN Hansa Lewis APRN, CNP LAB_1 Performing Organization Address [facility] Phon e Number HP CONVERSION Electrolytes (NA, K, CL, Bicarb) (07/28/2007 5:09 PM HOUSE ADMIN) P athologist Signature Sodium 140 137 - 147 HP CONVERSION mEq/L Potassium 4.6 3.5 - 5.2 HP CONVERSION mEq/L Chloride 105 98 - 110 HP CONVERSION mEq/L Bicarbonate 28 23 - 33 HP CONVERSION mmol/L Specimen (Source) Anatomical Collection Method Collection Time Re ceived Time Location / / Volume Laterality 07/28/2007 5:09 PM HOUSE ADMIN Hansa Lewis APRN, CNP LAB_1 Performing Organization Address City/[facility] Phon e Number HP CONVERSION documented in this encounter Visit Diagnoses Not on filedocumented in this encounter Care Teams Supervisor Testing Relationship Specialty Start Date End Date Hansa Lewis APRN, CNP PCP - General 10/22/10 11/30/12 [address] [place] [address] documented as of this encounter
--- OUTSIDE RECORDS SUMMARY | 2022-06-28 09:02 | XMS_ITS | Encounter Summary ---
:1960 Author Organization [employer] Address [address] [place] [address] Care Team Providers Name Role Phone Hansa Lewis YARED NGUYỄN Primary Care Provider [phone] Reason for Visit Reason Comments Other Encounter Details Date Type Department Care Team Description 08/28/2004 Telephone [facility] Silvia Anders Other [address] [place] [address] Social History Tobacco Use Types Packs/Day Years Used Date Smoking Tobacco: Never Assessed Sex Assigned at Date Recorded Not on file documented as of this encounter Progress Notes Silvia Anders - 08/28/2004 1:32 PM CST Phone Note filed by Silvia Anders RN at 11/06/10 9651 Author: Silvia Anders RN Service: (none) Author Type: Registered Nurse Filed: 11/06/10 1637 Note Time: 08/28/04 1332 Status: Signed Ordering Machine Operator: Silvia Anders RN (Registered Nurse) Bryce had [...] on filedocumented in this encounter Care Teams Mechanical Piping Designer Relationship Specialty Start Date End Date Hansa Lewis APRN, COURT WORKER PCP - General 10/22/10 11/30/12 [address] [address] [place] [address] documented as of this encounter
--- OUTSIDE RECORDS SUMMARY | 2022-06-28 09:02 | XMS_ITS | Encounter Summary ---
:1960 Author Organization [employer] Address [address], [place] [address] Care Team Providers Name Role Phone Unassigned, Provider Primary Care Provider Unavailable Encounter Details Date Type Department Care Team Description 08/28/2007 Hospital Encounter ANGLICAN CONVERSION Shanae Nelson MD [address] [place] [address] (Wo rk) Social History Tobacco [...] 08/28/2007 8:10 AM Results for this CONTRAST HOMELAND SECURITY PROGRAM SPECIALIST procedure are i n the results section. documented in this encounter Results HMR Abd WO IV Contrast (08/28/2007 8:10 AM HOMELAND SECURITY PROGRAM SPECIALIST) Anatomical Region Laterality Modality Abdomen Other Specimen (Source) Anatomical Location Collection Method / Collectio n Time Received Time / Laterality Volume Impressions 08/28/2007 8:10 AM HOMELAND SECURITY PROGRAM SPECIALIST : ??Incidental subcentimeter splenic cyst. ??Otherwise unremarkable MRCP. [id number] Dictating CHRIS YAP Physician Narrative 08/28/2007 8:10 AM HOMELAND SECURITY PROGRAM SPECIALIST HISTORY: ??MRCP, abnormal liver function tests. TECHNIQUE: [...] Incidental subcentimeter splenic cyst. Otherwise unremarkable MRCP. [id number] Dictating CHRIS YAP Physician Philip Nelson MD RAD MRI documented in this encounter Visit Diagnoses Not on filedocumented in this encounter Care Teams Brand Ambassadors Promotional Sales Relationship Specialty Start Date End Date Unassigned, Provider PCP - General 06/29/00 10/21/10 [address] [place] [address] documented as of this encounter
--- OUTSIDE RECORDS SUMMARY | 2022-06-28 09:03 | XMS_ITS | Encounter Summary ---
:1960 Author Organization [employer] Address [address] [place] [address] Care Team Providers Name Role Phone Hansa Lewis APRN, YARED Primary Care Provider [phone] Encounter Details Date Type Department Care Team Description 08/12/2003 PN Conversion Only [facility] Hansa Lewis APRN, [address] [place] [address] [address] [facility] [address] [place], [place] [address] (Wo rk) Social History Tobacco Use Types Packs/Day Years Used Date Smoking Tobacco: Never Assessed Sex Assigned at Date Recorded Not on file documented as of this encounter Plan of Treatment Not on filedocumented as of this encounter Procedures Procedure Name Priority Date/Time Associated Comments Diagnosis ELECTROLYTES (NA, K, Routine 08/12/2003 4:22 PM R esults for this CL, BICARB) WELDER FITTER GAS procedure are i n the results section. CREATININE / GFR Routine 08/12/2003 4:22 PM Resul ts for this WELDER FITTER GAS procedure are i n the results section. COMPLETE BLOOD Routine 08/12/2003 4:22 PM Results for this COUNT-W/DIFF WELDER FITTER GAS procedure are i n the results section. BUN Routine 08/12/2003 4:22 PM Results f or this WELDER FITTER GAS procedure are i n the results section. documented in this encounter Results Complete Blood Count-W/Diff (08/12/2003 4:22 PM WELDER FITTER GAS) [facility] Method Time Signature White Blood Cell [...] - HP CONVERSION Hemoglobin Conc 36.5 gm/dL [place] RDW 12.4 11.0 - HP CONVERSION 15.0 [...] / / Volume Laterality 08/12/2003 4:22 PM WELDER FITTER GAS Hansa Lewis APRN, CNP LAB_1 Performing Organization Address City/State/ZIP Code Phon e Number HP CONVERSION Electrolytes (NA, K, CL, Bicarb) (08/12/2003 4:22 PM WELDER FITTER GAS) P athologist Signature Sodium 138 137 - 147 HP CONVERSION meq/L Potassium 4.4 3.5 - 5.2 HP CONVERSION meq/L Chloride 104 98 - 110 HP CONVERSION meq/L Bicarbonate 25 23 - 33 HP CONVERSION mmol/L Specimen (Source) Anatomical Collection Method Collection Time Re ceived Time Location / / Volume Laterality 08/12/2003 4:22 PM WELDER FITTER GAS Hansa Joshua NGUYỄN CNP LAB_1 Performing Organization Address City/State/ZIP Code Phon e Number HP CONVERSION BUN (08/12/2003 4:22 PM WELDER FITTER GAS) P athologist Signature Blood Urea 18 5 - 26 HP CONVERSION Nitrogen mg/dL Specimen (Source) Anatomical Collection Method Collection Time Re ceived Time Location / / Volume Laterality 08/12/2003 4:22 PM WELDER FITTER GAS Hansa Lewis APRN, CNP LAB_1 Performing Organization Address City/State/ZIP Code Phon e Number HP CONVERSION Creatinine / GFR (08/12/2003 4:22 PM WELDER FITTER GAS) P athologist Signature Creatinine 1.2 0.5 - 1.5 HP CONVERSION Serum mg/dL Specimen (Source) Anatomical Collection Method Collection Time Re ceived Time Location / / Volume Laterality 08/12/2003 4:22 PM WELDER FITTER GAS Hansa Lewis APRN, CNP LAB_1 Performing Organization Address City/State/ZIP Code Phon e Number HP CONVERSION documented in this encounter Visit Diagnoses Not on filedocumented in this encounter Care Teams Rehabilitation Attendant Relationship Specialty Start Date End Date Hansa Lewis APRN, CNP PCP - General 10/22/10 11/30/12 [address] [place] [address] documented as of this encounter
--- OUTSIDE RECORDS SUMMARY | 2022-06-28 09:03 | XMS_ITS | Encounter Summary ---
:1960 Author Organization [employer] Address [address] [place] [address] Care Team Providers Name Role Phone Hansa Lewis APRN, CNP Primary Care Provider [phone] Encounter Details Date Type Department Care Team Description 06/05/2004 PN Conversion Only [facility] [address] [place] [address] Social History Tobacco Use Types Packs/Day Years Used Date Smoking Tobacco: Never Assessed Sex Assigned at Date Recorded Not on file documented as of this encounter Plan of Treatment Not on filedocumented as of this encounter Visit Diagnoses Not on filedocumented in this encounter Care Teams Heavy Forger Helper Relationship Specialty Start Date End Date Hansa Lewis APRN, CNP PCP - General 10/22/10 11/30/[address] [place] [address] documented as of this encounter
--- OUTSIDE RECORDS SUMMARY | 2022-06-28 09:03 | XMS_ITS | Encounter Summary ---
:1960 Author Organization [employer] Address [address] [place] [address] Care Team Providers Name Role Phone Hansa Lewis APRN, YARED Primary Care Provider [phone] Encounter Details Date Type Department Care Team Description 04/09/2003 PN Conversion Only [place] CONVERSIO N Hansa Lewis APRN, [address] [facility] [place] [address] [facility] [address] [place], [place] [address] (Wo rk) Social History [...] APRN, CNP LAB_1 Performing Organization Address [facility]/ZIP Code Phon e Number HP CONVERSION BUN (04/09/2003 4:22 PM CDT) athologist Signature Blood Urea 17 5 - 26 HP CONVERSION Nitrogen mg/dL Specimen (Source) Anatomical Collection Method Collection Time Re ceived Time Location / / Volume Laterality 04/09/2003 4:22 PM CDT Hansa Lewis APRN, CNP LAB_1 Performing Organization Address City/[facility]/ZIP Code Phon e Number HP CONVERSION Creatinine / GFR (04/09/2003 4:22 PM CDT) athologist Signature Creatinine 1.5 0.5 - 1.5 HP CONVERSION Serum mg/dL Specimen (Source) Anatomical Collection Method Collection Time Re ceived Time Location / / Volume Laterality 04/09/2003 4:22 PM CDT Hansa Lewis APRN, CNP LAB_1 Performing Organization Address [facility]/ZIP Code Phon e Number HP CONVERSION documented in this encounter Visit Diagnoses Not on filedocumented in this encounter Care Teams Scada Operator Relationship Specialty Start Date End Date Hansa Lewis APRN, CNP PCP - General 10/22/10 11/30/12 [address] [place] [address] documented as of this encounter
--- OUTSIDE RECORDS SUMMARY | 2022-06-28 09:03 | XMS_ITS | Encounter Summary ---
:1960 Author Organization [facility] Address [address] [address] Care Team Providers Name Role Phone Hansa Lewis APRN, CNP Primary Care Provider [phone] Encounter Details Date Type Department Care Team Description 04/09/2003 PN Conversion Only [facility] Hansa Lewis APRN, Medicine [facility] [address] [address] [place] [address] [place] [address] [phone] (Wo rk) Social History Tobacco Use Types [...] 1558 Note Time: 04/09/03 0001 Status: Signed Pre Parole Counseling Aide: CRISTINA Steele (Nurse Practitioner) NAME: BRYCE MOSLEY MR: [id number] ACCT: [id number] VISIT: [id number] DICTATING CLINICIAN: HANSA LEWIS CNP,RN JOB: [id number] CLINIC PROGRESS NOTE DATE OF VISIT: 04/09/2003 [...] checked at our calibrated cuff here at [facility], and typically the systolic does not run [...] or dizziness. He has been trying to lease picker his activity level, and he has no exercise intolerance, but he says he is not able to lose weight and so is requesting a referral to a acoustic warfare analyst today to find out exactly what a good diet is. He has a chronic problem with gastroesophageal reflux disease. It usually bothers him at night, and a couple weeks ago he awoke in the night with symptoms. He took xhom-apy-tceyvoe Zantac and said he must have had [...] pressure, and he is referred to the acoustic warfare analyst at his request for a heart healthy diet. For his reflux, he is given Zantac 150 mg one p.o. b.i.d., and I have asked him to take it on a scheduled basis. When he follows up in clinic in one month for hypertension, will also evaluate further adequacy of treatment for reflux. TT: CT: [id number] C: 04/11/03 12:35 DOCUMENT: [id number] Hansa Lewis, PERFECT BIND MACHINE OPERATOR, MACHINE SKIVER - 11/12/2002 12:01 AM CDT Progress Notes signed by CRISTINA Steele at 02/09/03 4082 Author: CRISTINA Steele Service: (none) Author Type: (none) Filed: 11/09/10 9662 Note Time: 11/12/02 0001 Status: Signed Pre Parole Counseling Aide: CRISTINA Steele (Nurse Practitioner) NAME: BRYCE MOSLEY MR: [id number] ACCT: [id number] VISIT: [id number] DICTATING CLINICIAN: HANSA LEWIS CNP,RN JOB: [id number] CLINIC PROGRESS NOTE DATE OF VISIT: 11/12/2002 [...] also reports exercise intolerance. Has started playing racqueMemolane. Does play for an hour but says that he just feels whipped during the exercise. Again denies chest pain, diaphoresis, fatigue, light headedness or dizziness. FAMILY HISTORY: Positive for coronary artery disease. His mother of an SD at 62 and one of his maternal [...] set up for November 16. TT: CT: [id number]:[id number] C: 11/13/02 12:38 DOCUMENT: [id number] Phone Note, Clinician - 11/09/2002 12:01 AM CDT Phone Note filed by Clinician Phone Note at 11/07/101106 Author: Clinician Phone Note Service: (none) Author Type: Resource Filed: 11/07/10 1107 Note Time: 11/09/02 0001 Status: Signed Pre Parole Counseling Aide: Clinician Phone Note (Resource) SUBJECTIVE: ALLERGIES/SENSITIVITIES... nka * HOME PHONE:[phone] * 09/18/02 * WORK PHONE:[phone] * CURRENT MEDICATIONS... Prinivil 20mg QD 09/18/02 PERTINENT PAST HISTORY... 09/18/02 ASSESSMENT: Lab letter. DISPOSITION: NO DISPOSITION GIVEN PLAN: [facility] [place] COMMENTS... Per Suraj Lewis, Lab letter, Follow up as planned. CALL BY IRAIS SPRINGER RN 11/09/2002 08:38AM ADDENDUM: OUT MAN Phone Note, Clinician - 09/18/2002 12:01 AM CST Phone Note filed by Clinician Phone Note at 11/07/10 1046 Author: Clinician Phone Note Service: (none) Author Type: Resource Filed: 11/07/106 Note Time: 09/18/022016 Status: Signed Pre Parole Counseling Aide: Clinician Phone Note (Resource) TO: HANSA LEWIS FROM: JULIO CÉSAR SURESH RN [phone] * PROVIDER MESSAGE: ROUTINE * 09/18/02 10:40AM * *WITHIN 4 HOURS * MESSAGE: please advise * HOME PHONE:[phone] * SUBJECTIVE: * WORK PHONE:[phone] * CHIEF CONCERN... Pt was seen by you * CONTACT PHONE:[phone] * Jun 19 for B/P eval and [...] BY JULIO CÉSAR SURESH RN 09/18/2002 10:37AM [phone] ADDENDUM: <> 09/18/2002 03:43PM by DIANA SANTOYO: Per Ananya Lewis's written orders, pt should go to lab for for more tests. Lab slip was sent to lab. I spoke to pt and let them know to go to the lab for more tests. Hansa Montoya APRN, MACHINE SKIVER - 06/19/2002 12:01 AM CST Progress Notes signed by at 09/12/02 0001 Author: CRISTINA Steele Service: (none) Author Type: (none) Filed: 11/09/10 1041 Note Time: 06/19/02 0001 Status: Signed Pre Parole Counseling Aide: CRISTINA Steele (Nurse Practitioner) IMPRESSION: Hypertension. Hyperlipidemia. [...] I reviewed with him recommendations. TT: CT: [id number] C: 06/19/02 21:04 DOCUMENT: [id number] OUT MAN Conversion, [facility] - 05/28/2002 12:01 AM CST Phone Note signed by at 05/28/02 1036 Author: Jacquelyn Colin Service: (none) Author Type: (none) Filed: 11/09/10 1010 Note Time: 05/28/02 0001 Status: Signed Pre Parole Counseling Aide: Jacquelyn Colin IMPRESSION: REQUESTING LAB WORK TO: HANSA LEWIS FROM: ERLIN NUNEZ LPN [phone] * PROVIDER MESSAGE: ROUTINE * 05/28/02 10:36AM * *WITHIN 4 HOURS * MESSAGE: Pt call: rec'd lab order in * HOME PHONE:[phone] * mail for MARISELA adams [employer]. Pt has * WORK PHONE:[phone] * strong family hx of heart problems * CONTACT PHONE:[phone] * in family and would like chol f and * v.m. ok * any ot her testing regarding this problem. SUBJECTIVE: ALLERGIES/SENSITIVITIES... CURRENT MEDICATIONS... PERTINENT PAST HISTORY... WEIGHT: ASSESSMENT: REQUESTING LAB WORK PLAN: DISPOSITION: NO DISPOSITION GIVEN CALL BY ERLIN NUNEZ LPN 05/28/2002 10:35AM [phone] ADDENDUM: <> 05/28/2002 01:19PM by IRAIS URRUTIA RN: Per Hansa Lewis, fasting cholesterol fractionation - Okay please add to fuschia. pt notified and lab slip sent to the lab. Hansa Montoya APRN, MACHINE SKIVER - 05/22/2002 12:01 AM CST Progress Notes signed by at 09/12/02 0001 Author: CRISTINA Steele Service: (none) Author Type: (none) Filed: 11/09/10 1001 Note Time: 05/22/02 0001 Status: Signed Pre Parole Counseling Aide: CRISTINA Steele (Nurse Practitioner) IMPRESSION: Hypertension. SUBJECTIVE: [...] me in one month's time. TT: CT: [id number]:[id number] C: DOCUMENT: [id number] OUT MAN Conversion, [facility] - 12/04/2001 12:01 AM CDT Progress Notes signed by at 09/12/022016 Author: Imr Conversion Service: (none) Author Type: (none) Filed: 11/09/10 0609 Note Time: 12/04/012016 Status: Signed Pre Parole Counseling Aide: Jacquelyn Conversion IMPRESSION: Hypertension. Stable on Prinivil. Varicose veins [...] patient. Follow up care discussed. TT: CT: [id number] C: DOCUMENT: [id number] OUT MAN Conversion, [facility] - 11/14/2000 12:01 AM CDT Progress Notes signed by at 09/12/022016 Author: [facility] Conversion Service: (none) Author Type: (none) Filed: 11/08/10 2209 Note Time: 11/14/002016 Status: Signed Pre Parole Counseling Aide: Jacquelyn Colin IMPRESSION: Hypertension. Fatigue, rule out [...] TSH and blood sugar. PLAN: See assessment. [facility]:[id number] C: DOCUMENT: [id number] OUT MAN documented in this encounter Plan of Treatment Not on filedocumented as of this encounter Procedures Procedure Name Priority Date/Time Associated Comments Diagnosis ELECTROLYTES (NA, K, Routine 05/29/2002 11:44 Res ults for this CL, BICARB) AM DRAG OUT MAN procedure are i n the results section. LIPID PANEL AND Routine 05/29/2002 11:44 Results for this DIRECT LDL(IF NEEDED) AM DRAG OUT MAN proced ure are in the results section. CREATININE / GFR Routine 05/29/2002 11:44 Results for this AM DRAG OUT MAN procedure are i n the results section. BUN Routine 05/29/2002 11:44 Results for this AM DRAG OUT MAN procedure are i n the results section. [...] and Direct LDL(If Needed) (05/29/2002 11:44 [facility] Method Time Signature Length Of Fast [...] / / Volume Laterality 05/29/2002 11:44 AM DRAG OUT MAN Hansa Lewis APRN, MACHINE SKIVER LAB_1 Performing Organization Address City/State/ZIP Code Phon e Number HP CONVERSION BUN (05/29/2002 11:44 AM DRAG OUT MAN) athologist Signature Blood Urea 19 5 - 26 HP CONVERSION Nitrogen mg/dL Specimen (Source) Anatomical Collection Method Collection Time Re ceived Time Location / / Volume Laterality 05/29/2002 11:44 AM DRAG OUT MAN Hansa Lewis APRN MACHINE SKIVER LAB_1 Performing Organization Address City/State/ZIP Code Phon e Number HP CONVERSION Creatinine / GFR (05/29/2002 11:44 AM DRAG OUT MAN) athologist Signature Creatinine 1.4 0.5 - 1.5 HP CONVERSION Serum mg/dL Specimen (Source) Anatomical Collection Method Collection Time Re ceived Time Location / / Volume Laterality 05/29/2002 11:44 AM DRAG OUT MAN Hansa Lewis APRYARED Ma LAB_1 Performing Organization Address [facility]/ZIP Code Phon e Number HP CONVERSION Electrolytes (NA, K, CL, Bicarb) (05/29/2002 11:44 AM DRAG OUT MAN) athologist Signature Sodium 141 137 - 147 HP CONVERSION meq/L Potassium 5.2 3.5 - 5.2 HP CONVERSION meq/L Chloride 103 98 - 110 HP CONVERSION meq/L Bicarbonate 27 23 - 33 HP CONVERSION mmol/L Specimen (Source) Anatomical Collection Method Collection Time Re ceived Time Location / / Volume Laterality 05/29/2002 11:44 AM DRAG OUT MAN Hansa Lewis APRN YARED LAB_1 Performing Organization Address [facility]/ZIP Code Phon e Number HP CONVERSION Electrolytes [...] Ir Radiologist Radiology LAB_1 Performing Organization Address City/[facility]/ZIP Code Phon e Number HP CONVERSION BUN (11/14/2000 3:49 PM CDT) athologist Signature Blood Urea 18 5 - 26 HP CONVERSION Nitrogen mg/dL Specimen (Source) Anatomical Collection Method Collection Time Re ceived Time Location / / Volume Laterality 11/14/2000 3:49 PM CDT Ir Radiologist Radiology LAB_1 Performing Organization Address City/[facility]/ZIP Code Phon e Number HP CONVERSION Creatinine / GFR (11/14/2000 3:49 PM CDT) athologist Signature Creatinine 1.5 0.5 - 1.5 HP CONVERSION Serum mg/dL Specimen (Source) Anatomical Collection Method Collection Time Re ceived Time Location / / Volume Laterality 11/14/2000 3:49 PM CDT Ir Radiologist Radiology LAB_1 Performing Organization Address City/[facility]/ZIP Code Phon e Number HP CONVERSION Glucose (11/14/2000 3:49 PM CDT) athologist Signature Lab Glucose 92 60 - 109 HP CONVERSION mg/dL Specimen (Source) Anatomical Collection Method Collection Time Re ceived Time Location / / Volume Laterality 11/14/2000 3:49 PM CDT Ir Radiologist Radiology LAB_1 Performing Organization Address City/[facility]/ZIP Code Phon e Number HP CONVERSION Thyroid Stimulating Hormone (11/14/2000 3:49 PM CDT) athologist Signature Thyroid 3.35 0.20 - HP CONVERSION Stimulating 5.50 Hormone uIU/mL Specimen (Source) Anatomical Collection Method Collection Time Re ceived Time Location / / Volume Laterality 11/14/2000 3:49 PM CDT Ir Radiologist Radiology LAB_1 Performing Organization Address City/[facility]/ZIP [facility] Phon e Number HP CONVERSION documented in this encounter Visit Diagnoses Not on filedocumented in this encounter Care Teams Mail List Librarian Relationship Specialty Start Date End Date Hansa Lewis, PERFECT BIND MACHINE OPERATOR, MACHINE SKIVER PCP - General 10/22/10 11/30/[address] [place], [place] [address] documented as of this encounter
--- OUTSIDE RECORDS SUMMARY | 2022-06-28 09:03 | XMS_ITS | Encounter Summary ---
:1960 Author Organization [employer] Address [address] [place] [address] Care Team Providers Name Role Phone Hansa Lewis APRN, CNP Primary Care Provider [phone] Encounter Details Date Type Department Care Team Description 08/28/2004 PN Conversion Only [place] CONVERSIO N Jose Mata W, [address] [employer] [place] [address] [facility] [address] [place], [place] [address] (Wo rk) Social History Tobacco Use Types Packs/Day Years Used Date Smoking Tobacco: Never Assessed Sex Assigned at Date Recorded Not on file documented as of this encounter Plan of Treatment Not on filedocumented as of this encounter Procedures Procedure Name Priority Date/Time Associated Comments Diagnosis BLOOD CULTURE Routine 08/28/2004 5:16 PM Results for this INCLUDES AEROBIC AND MEDICAL OFFICER PSYCHIATRY procedu re are in ANAEROBIC the results section. BLOOD CULTURE Routine 08/28/2004 5:14 PM Results for this INCLUDES AEROBIC AND MEDICAL OFFICER PSYCHIATRY procedu re are in ANAEROBIC the results section. ALT (SGPT) Routine 08/28/2004 5:14 PM Results f or this MEDICAL OFFICER PSYCHIATRY procedure are i n the results section. AST Routine 08/28/2004 5:14 PM Results f or this MEDICAL OFFICER PSYCHIATRY procedure are i n the results section. BILIRUBIN, TOTAL Routine 08/28/2004 5:14 PM Resul ts for this MEDICAL OFFICER PSYCHIATRY procedure are i n the results section. BILI - DIRECT Routine 08/28/2004 5:14 PM Results for this MEDICAL OFFICER PSYCHIATRY procedure are i n the results section. ALKALINE PHOSPHATASE, Routine 08/28/2004 5:14 PM Results for this TOTAL MEDICAL OFFICER PSYCHIATRY procedure are i n the results section. ALBUMIN Routine 08/28/2004 5:14 PM Results f or this MEDICAL OFFICER PSYCHIATRY procedure are i n the results section. ELECTROLYTES (NA, K, Routine 08/28/2004 4:05 PM R esults for this CL, BICARB) MEDICAL OFFICER PSYCHIATRY procedure are i n the results section. URINALYSIS COMPLETE Routine 08/28/2004 4:05 PM Re sults for this HOLD CULTURE MEDICAL OFFICER PSYCHIATRY procedure are i n the results section. COMPLETE BLOOD Routine 08/28/2004 4:05 PM Results for this COUNT-W/DIFF MEDICAL OFFICER PSYCHIATRY procedure are i n the results section. ESR Routine 08/28/2004 4:05 PM Results f or this MEDICAL OFFICER PSYCHIATRY procedure are i n the results section. documented in this encounter Results Blood Culture includes Aerobic and Anaerobic (08/28/2004 5:16 PM MEDICAL OFFICER PSYCHIATRY) Analysis Performed At [facility] Time Signature Blood Culture SEE TEXT HP CONVERSION Comment: Patient: JOSH MOSLEY Culture, Blood @ ?Collected: ??[id number] Source: BLOOD ? Processed: ??[id number] ??[id number] ? 1V,RIGHT ARM FINAL REPORT -------- ?[id number] ??[id number] No aerobic growth at 5 days @ = BLOOD CULTURE Performed at ??[address] [facility], [facility], ??[place] ?[address] Specimen (Source) Anatomical Collection Method Collection Time Re ceived Time Location / / Volume Laterality 08/28/2004 5:16 PM MEDICAL OFFICER PSYCHIATRY Jose Lopez Adolfo NGUYỄN CNP LAB_1 Performing Organization Address [facility] Phon e Number HP CONVERSION Albumin (08/28/2004 5:14 PM MEDICAL OFFICER PSYCHIATRY) P athologist Signature Albumin 4.6 3.0 - 5.0 HP CONVERSION g/dL Specimen (Source) Anatomical Collection Method Collection Time Re ceived Time Location / / Volume Laterality 08/28/2004 5:14 PM MEDICAL OFFICER PSYCHIATRY Jose W Adolfo NGUYỄN CNP LAB_1 Performing Organization Address [facility] Phon e Number HP CONVERSION Alkaline Phosphatase, Total (08/28/2004 5:14 PM MEDICAL OFFICER PSYCHIATRY) athologist Signature Alk Phos 69 50 - 136 U/L HP CONVERSION Specimen (Source) Anatomical Collection Method Collection Time Re ceived Time Location / / Volume Laterality 08/28/2004 5:14 PM MEDICAL OFFICER PSYCHIATRY Jose Lopez Adolfo NGUYỄN CNP LAB_1 Performing Organization Address [facility] Phon e Number HP CONVERSION ALT (SGPT) (08/28/2004 5:14 PM MEDICAL OFFICER PSYCHIATRY) [facility] gist Method Time Signature Alanine 53 0 - 65 HP CONVERSION Aminotransferase U/L Specimen (Source) Anatomical Collection Method Collection Time Re ceived Time Location / / Volume Laterality 08/28/2004 5:14 PM MEDICAL OFFICER PSYCHIATRY Jose Lopez Adolfo NGUYỄN PIT STEWARD LAB_1 Performing Organization Address [facility] Phon e Number HP CONVERSION AST (08/28/2004 5:14 PM MEDICAL OFFICER PSYCHIATRY) [facility] gist Method Time Signature Aspartate 23 0 - 45 HP CONVERSION Aminotransferase U/L Specimen (Source) Anatomical Collection Method Collection Time Re ceived Time Location / / Volume Laterality 08/28/2004 5:14 PM MEDICAL OFFICER PSYCHIATRY Jose Lopez Adolfo NGUYỄN PIT STEWARD LAB_1 Performing Organization Address City/[facility] Phon e Number HP CONVERSION Bilirubin, Direct (08/28/2004 5:14 PM MEDICAL OFFICER PSYCHIATRY) P athologist Signature Bilirubin, 0.1 0.0 - 0.4 HP CONVERSION Direct mg/dL Specimen (Source) Anatomical Collection Method Collection Time Re ceived Time Location / / Volume Laterality 08/28/2004 5:14 PM MEDICAL OFFICER PSYCHIATRY Jose Mata APRN, PIT STEWARD LAB_1 Performing Organization Address [facility] Phon e Number HP CONVERSION Bilirubin, Total (08/28/2004 5:14 PM MEDICAL OFFICER PSYCHIATRY) athologist Signature Bilirubin Total 0.7 0.2 - 1.2 HP CONVERSION mg/dL Specimen (Source) Anatomical Collection Method Collection Time Re ceived Time Location / / Volume Laterality 08/28/2004 5:14 PM MEDICAL OFFICER PSYCHIATRY Jose Mata APRN, PIT STEWARD LAB_1 Performing Organization Address [facility] Phon e Number HP CONVERSION Blood Culture includes Aerobic and Anaerobic (08/28/2004 5:14 PM MEDICAL OFFICER PSYCHIATRY) Analysis Performed At Patho logist Time Signature Blood Culture SEE TEXT HP CONVERSION Comment: Patient: JOSH MOSLEY Culture, Blood @ ?Collected: ??[id number] Source: BLOOD ? Processed: ??[id number] ??[id number] ? 1V,LEFT ARM FINAL REPORT -------- ?[id number] ??[id number] No aerobic growth at 5 days @ = BLOOD CULTURE Performed at ??[address] [facility], [facility], ??[place] ?[address] Specimen (Source) Anatomical Collection Method Collection Time Re ceived Time Location / / Volume Laterality 08/28/2004 5:14 PM MEDICAL OFFICER PSYCHIATRY Jose Mata APRN, PIT STEWARD LAB_1 Performing Organization Address City/State/ZIP Code Phon e Number HP CONVERSION (ABNORMAL) Complete Blood Count-W/Diff (08/28/2004 4:05 PM MEDICAL OFFICER PSYCHIATRY) [facility] gist Method Time Signature White Blood [...] - HP CONVERSION Hemoglobin Conc 36.5 gm/dL [place] RDW 11.7 11.0 - HP CONVERSION 15.0 [...] / / Volume Laterality 08/28/2004 4:05 PM MEDICAL OFFICER PSYCHIATRY Jose Mata APRN, PIT STEWARD LAB_1 Performing Organization Address [facility] Phon e Number HP CONVERSION (ABNORMAL) Urinalysis Complete Hold Culture (08/28/2004 4:05 PM MEDICAL OFFICER PSYCHIATRY) [facility] Method Time Signature U Specific 1.025 1.005 - 25 HP CONVERSION [place] pH Urine 5.0 4.5 - 7.5 HP [...] / / Volume Laterality 08/28/2004 4:05 PM MEDICAL OFFICER PSYCHIATRY Jose Jessica Adolfo NGUYỄN CNP LAB_1 Performing Organization Address [facility] Phon e Number HP CONVERSION Electrolytes (NA, K, CL, Bicarb) (08/28/2004 4:05 PM MEDICAL OFFICER PSYCHIATRY) athologist Signature Sodium 138 137 - 147 HP CONVERSION meq/L Potassium 4.8 3.5 - 5.2 HP CONVERSION meq/L Chloride 101 98 - 110 HP CONVERSION meq/L Bicarbonate 23 23 - 33 HP CONVERSION mmol/L Specimen (Source) Anatomical Collection Method Collection Time Re ceived Time Location / / Volume Laterality 08/28/2004 4:05 PM MEDICAL OFFICER PSYCHIATRY Jose Jessica Adolfo NGUYỄN CNP LAB_1 Performing Organization Address [facility] Phon e Number HP CONVERSION ESR (08/28/2004 4:05 PM MEDICAL OFFICER PSYCHIATRY) [facility] Method Time Signature Sedimentation Rate 13 0 - 15 HP CONVERSI ON mm/Hr Specimen (Source) Anatomical Collection Method Collection Time Re ceived Time Location / / Volume Laterality 08/28/2004 4:05 PM MEDICAL OFFICER PSYCHIATRY Jose Jessica Adolfo NGUYỄN CNP LAB_1 Performing Organization Address [facility]/ZIP Code Phon e Number HP CONVERSION documented in this encounter Visit Diagnoses Not on filedocumented in this encounter Care Teams Chief Nursing Executive Relationship Specialty Start Date End Date Hansa Lewis APRN, PIT STEWARD PCP - General 10/22/10 11/30/[address] [place] [address] documented as of this encounter
--- OUTSIDE RECORDS SUMMARY | 2022-06-28 09:03 | XMS_ITS | Encounter Summary ---
:1960 Author Organization [email or web address] Address [address] [address] Care Team Providers Name Role Phone Hansa Lewis APRN, CNP Primary Care Provider [phone] Encounter Details Date Type Department Care Team Description 08/28/2004 Office Visit [facility] Oliver Angulo, Medicine YARED NGUYỄN [address] [address] [place] [address] [place] [address] [phone] (Wo rk) Social History Tobacco Use Types [...] 0250 Note Time: 08/28/04 0001 Status: Signed Process Maintenance Technician: ROSEMARY Spears (Nurse Practitioner) NAME: JOSH MOSLEY MR: [id number] ACCT: [id number] VISIT: [id number] DICTATING CLINICIAN: OLIVER ANGULO NP JOB: [id number] CLINIC PROGRESS NOTE DATE OF VISIT: 08/28/2004 [...] discharged home with his . He agrees. [id number] C: 08/29/04 12:41 DOCUMENT: [id number] NG ASSEMBLER documented in this encounter Plan of Treatment Not on filedocumented as of this encounter Procedures Procedure Name Priority Date/Time Associated Diagnosis Comme nts XR CERVICAL SPINE 5 Routine 08/28/2004 5:51 PM Re sults for this VIEWS SPRING ASSEMBLER procedure are i n the results section. documented in this encounter Results XR Cervical Spine 5 Views (08/28/2004 5:51 PM SPRING ASSEMBLER) Anatomical Region Laterality Modality Spine, C-Spine, Neck Other Specimen (Source) Anatomical Location Collection Method / Collectio n Time Received Time / Laterality Volume Narrative 08/28/2004 5:51 PM SPRING ASSEMBLER Mild hypertrophic changes at C5-6 with mild cervical kyphosis. Otherwise unremarkable. [id number] Dictating LARRY CHERY MD Procedure Note Larry Alexis - 09/22/2016 Mild hypertrophic changes at C5-6 with m ild cervical kyphosis. Otherwise unremarkable. [id number]/[id number] Dictating LARRY CHERY MD Oliver Angulo APRN, CNP RAD GD documented in this encounter Visit Diagnoses Not on filedocumented in this encounter Care Teams Spinner Fixer Relationship Specialty Start Date End Date Hansa Lewis APRN, CNP PCP - General 10/22/10 11/30/12 [address] [place] [address] documented as of this encounter
--- OUTSIDE RECORDS SUMMARY | 2022-06-28 09:03 | XMS_ITS | Encounter Summary ---
:1960 Author Organization [facility] Address [address] [place] [address] Care Team Providers Name Role Phone Unassigned, Provider Primary Care Provider Unavailable Encounter Details Date Type Department Care Team Description 11/16/2002 Hospital Encounter [facility] Beto Lewis ie, INSPECTOR INSULATION, Echocardiogram AUTOCAD DRAFTSMAN [address] [address] [place] [address] [phone] Social History Tobacco Use Types Packs/Day Years Used Date Smoking Tobacco: Never Assessed Sex Assigned at Date Recorded Not on file documented as of this encounter Plan of Treatment Not on filedocumented as of this encounter Procedures Procedure Name Priority Date/Time Associated Diagnosis Comme nts STRESS ECHO Routine 11/16/2002 1:52 PM Results f or this CDT procedure [...] ??Image quality wa s acceptable. Hansa Lewis APRN, AUTOCAD DRAFTSMAN ET ECHO ORDERABLES Performing Organization Address City/State/ZIP Code Phon e Number HP CONVERSION documented in this encounter Visit Diagnoses Not on filedocumented in this encounter Care Teams Cloth Hauler Relationship Specialty Start Date End Date Unassigned, Provider PCP - General 06/29/00 10/21/10 [address] [place] [address] documented as of this encounter
--- OUTSIDE RECORDS SUMMARY | 2022-06-28 09:03 | XMS_ITS | Encounter Summary ---
:1960 Author Organization [facility] [employer] Address [address] [place] [address] Care Team Providers Name Role Phone Hansa Lewis APRN, CNP Primary Care Provider [phone] Encounter Details Date Type Department Care Team Description 11/12/2002 PN Conversion Only [facility] Hansa Lewis APRN, [address] [facility] [place] [address] [address] [address] [place] [address] (Wo rk) Social History Tobacco Use Types Packs/Day Years Used Date Smoking Tobacco: Never Assessed Sex Assigned at Date Recorded Not on file documented as of this encounter Plan of Treatment Not on filedocumented as of this encounter Visit Diagnoses Not on filedocumented in this encounter Care Teams Supply Chain Vice President Relationship Specialty Start Date End Date Hansa Lewis APRN, CNP PCP - General 10/22/10 11/30/12 [address] [place] [id number] documented as of this encounter
--- OUTSIDE RECORDS SUMMARY | 2022-06-28 09:03 | XMS_ITS | Encounter Summary ---
:1960 Author Organization [employer] Address [address] [place] [address] Care Team Providers Name Role Phone Hansa Lewis APRN, YARED Primary Care Provider [phone] Encounter Details Date Type Department Care Team Description 06/07/2004 PN Conversion Only [place] [facility] Hansa Lewis APRN, [address] [place] [address] [facility] [address] [place], [place] [address] (Wo rk) Social History Tobacco Use Types Packs/Day Years Used Date Smoking Tobacco: Never Assessed Sex Assigned at Date Recorded Not on file documented as of this encounter Plan of Treatment Not on filedocumented as of this encounter Procedures Procedure Name Priority Date/Time Associated Comments Diagnosis ELECTROLYTES (NA, K, Routine 06/07/2004 4:35 PM R esults for this CL, BICARB) ESTIMATOR PRINTING procedure are i n the results section. CREATININE / GFR Routine 06/07/2004 4:35 PM Resul ts for this ESTIMATOR PRINTING procedure are i n the results section. BUN Routine 06/07/2004 4:35 PM Results f or this ESTIMATOR PRINTING procedure are i n the results section. documented in this encounter Results BUN (06/07/2004 4:35 PM ESTIMATOR PRINTING) P athologist Signature Blood Urea 24 5 - 26 HP CONVERSION Nitrogen mg/dL Specimen (Source) Anatomical Collection Method Collection Time Re ceived Time Location / / Volume Laterality 06/07/2004 4:35 PM ESTIMATOR PRINTING Hansa Joshua NGUYỄN CNP LAB_1 Performing Organization Address City/State/ZIP Code Phon e Number HP CONVERSION Creatinine / GFR (06/07/2004 4:35 PM ESTIMATOR PRINTING) athologist Signature Creatinine 1.5 0.5 - 1.5 HP CONVERSION Serum mg/dL Specimen (Source) Anatomical Collection Method Collection Time Re ceived Time Location / / Volume Laterality 06/07/2004 4:35 PM ESTIMATOR PRINTING Hansa Joshua NGUYỄN CNP LAB_1 Performing Organization Address City/State/ZIP Code Phon e Number HP CONVERSION Electrolytes (NA, K, CL, Bicarb) (06/07/2004 4:35 PM ESTIMATOR PRINTING) athologist Signature Sodium 138 137 - 147 HP CONVERSION meq/L Potassium 4.3 3.5 - 5.2 HP CONVERSION meq/L Chloride 102 98 - 110 HP CONVERSION meq/L Bicarbonate 27 23 - 33 HP CONVERSION mmol/L Specimen (Source) Anatomical Collection Method Collection Time Re ceived Time Location / / Volume Laterality 06/07/2004 4:35 PM ESTIMATOR PRINTING Hansa Joshua NGUYỄN CNP LAB_1 Performing Organization Address City/State/ZIP Code Phon e Number HP CONVERSION documented in this encounter Visit Diagnoses Not on filedocumented in this encounter Care Teams Wirer Helper Relationship Specialty Start Date End Date Hansa Lewis APRN, CNP PCP - General 10/22/10 11/30/12 [address] [address] [place] [address] documented as of this encounter
--- OUTSIDE RECORDS SUMMARY | 2022-06-28 09:03 | XMS_ITS | Encounter Summary ---
:1960 Author Organization [facility] Address [address] [place] [address] Care Team Providers Name Role Phone Hansa Lewis APRN, CNP Primary Care Provider [phone] Encounter Details Date Type Department Care Team Description 11/02/2002 PN Conversion Only [place] [facility] Hansa Lewis APRN, [address] [place] [address] [facility] [address] [place], [place] [address] (Wo rk) Social History [...] on filedocumented in this encounter Care Teams Trailer Rental Clerk Relationship Specialty Start Date End Date Hansa Lewis APRN, SALES REPRESENTATIVE RURAL [employer]OWER PCP - General 10/22/10 11/30/12 [address] [place] [address] documented as of this encounter
--- OUTSIDE RECORDS SUMMARY | 2022-06-28 09:03 | XMS_ITS | Encounter Summary ---
:1960 Author Organization [employer] Address [address] [place] [address] Care Team Providers Name Role Phone Unassigned, Provider Primary Care Provider Unavailable Encounter Details Date Type Department Care Team Description 07/13/2003 Hospital Encounter ANGLICAN CONVERSION Hansa Lewis, DELMA, STOCK RECEIVER [address] [place], [place] [address] (Wo rk) Social History Tobacco Use Types Packs/Day Years Used Date Smoking Tobacco: Never Assessed Sex Assigned at Date Recorded Not on file documented as of this encounter Plan of Treatment Not on filedocumented as of this encounter Procedures Procedure Name Priority Date/Time Associated Diagnosis Comme nts US VENOUS RIGHT Routine 07/13/2003 6:23 PM Result s for this LOWER EXTREM ELECTROLYSIS ENGINEER procedure are i n DOPPLER the results section. documented in this encounter Results US VENOUS RIGHT LOWER EXTREM DOPPLER (07/13/2003 6:23 PM ELECTROLYSIS ENGINEER) Anatomical Region Laterality Modality Vascular, Leg Other Specimen (Source) Anatomical Location Collection Method / Collectio n Time Received Time / Laterality Volume Narrative 07/13/2003 6:23 PM ELECTROLYSIS ENGINEER INDICATION: ??Superficial thrombosis. ??Rule out deep vein [...] has clinical symptoms of superficial thrombosis in [facility] region and will be treated locally for this by care provider. (32) - [id number] Dictating JOSE A MEDINA MD Procedure Note [...] has clinical symptoms of superficial thrombosis in [facility] region and will be treated locally for this by care provider. (89) - [id number] Dictating JOSE A MEDINA MD Hansa Lewis APRN, STOCK RECEIVER RAD US documented in this encounter Visit Diagnoses Not on filedocumented in this encounter Care Teams Senior Insight Manager International Relationship Specialty Start Date End Date Unassigned, Provider PCP - General 06/29/00 10/21/[address] [place] [address] documented as of this encounter
--- OUTSIDE RECORDS SUMMARY | 2022-06-28 09:03 | XMS_ITS | Encounter Summary ---
:1960 Author Organization [facility] Address [address], [place] [address] Care Team Providers Name Role Phone Hansa Lewis APRN, CNP Primary Care Provider [phone] Encounter Details Date Type Department Care Team Description 06/07/2004 Office Visit [facility] Hansa Lewis APRN, [facility] [address] [address] [place] [address] [place] [address] [phone] (Wo rk) Social History Tobacco Use Types [...] 0122 Note Time: 06/07/04 0001 Status: Signed Tapper Balance Wheel Screw Hole: CRISTINA Steele (Nurse Practitioner) NAME: JOSH MOSLEY MR: [id number] ACCT: [id number] VISIT: [id number] DICTATING CLINICIAN: JOSEP STEELERN JOB: [id number] CLINIC PROGRESS NOTE DATE OF VISIT: 06/07/2004 [...] BP: 124/78 P: 60 Wt: 200 lb. Angely appears well, good color, alert and oriented, [...] for a complete physical in 6 months. LAE:[id number] C: 06/08/04 13:39 DOCUMENT: [id number] [facility] documented in this encounter Plan of Treatment Not on filedocumented as of this encounter Visit Diagnoses Not on filedocumented in this encounter Care Teams Paper Cutter Relationship Specialty Start Date End Date Hansa Lewis, BIOMATHEMATICIAN, CHIN STRAP MAKER PCP - General 10/22/10 11/30/12 [address] [place] [address] documented as of this encounter
--- OUTSIDE RECORDS SUMMARY | 2022-06-28 09:03 | XMS_ITS | Encounter Summary ---
:1960 Author Organization [employer] Address [address] [place] [address] Care Team Providers Name Role Phone Unassigned, Provider Primary Care Provider Unavailable Encounter Details Date Type Department Care Team Description 08/04/2003 Hospital Encounter PRESYBETERIAN CONVERSION Cally Ryan MD [address] [place] [address] (Wo rk) Social History Tobacco Use Types Packs/Day Years Used Date Smoking Tobacco: Never Assessed Sex Assigned at Date Recorded Not on file documented as of this encounter Plan of Treatment Not on filedocumented as of this encounter Procedures Procedure Name Priority Date/Time Associated Diagnosis Comme nts [facility] LOWER Routine 08/04/2003 3:00 PM Results f or this EXTREMITY LT VENOUS CLAIMS ADJUSTER CROP procedur e are in DUPLEX DVT the results section. documented in this encounter Results VL US Lower Extremity Lt Venous Duplex DVT (08/04/2003 3:00 PM CLAIMS ADJUSTER CROP) Anatomical Region Laterality Modality Vascular, Lower Extremity, Leg Other Specimen (Source) Anatomical Location Collection Method / Collectio n Time Received Time / Laterality Volume Narrative 08/04/2003 3:00 PM CLAIMS ADJUSTER CROP RVT: ??Beatriz Deluna M.D. Reading Study: ??Ruel [...] competent. - There are no inompetent perforators. [facility] is an accred Triprental.comed Vascvlar lab with the ICAVL. Procedure Note [...] competent. - There are no inompetent perforators. [facility] is an [facility] Vascvlar lab with the ICAVL. Lemuel Ryan MD [facility] VASCULAR US documented in this encounter Visit Diagnoses Not on filedocumented in this encounter Care Teams Dinkey Locomotive Engineer Relationship Specialty Start Date End Date Unassigned, Provider PCP - General 06/29/00 10/21/[address] [place] [address] documented as of this encounter
--- OUTSIDE RECORDS SUMMARY | 2022-06-28 09:03 | XMS_ITS | Encounter Summary ---
:1960 Author Organization [employer] Address [address], [place] [address] Care Team Providers Name Role Phone Unassigned, Provider Primary Care Provider Unavailable Encounter Details Date Type Department Care Team Description 08/17/2003 Hospital Encounter CONV METH Lemuel Tobar MD [address] [place] [address] CHEL[address]uel Mo MD [address] [place] [address] [place] [address] Social History Tobacco Use Types Packs/Day Years [...] 1815 Note Time: 08/17/03 0946 Status: Signed Slitter Operator: Lemuel Ryan MD (Physician) NAME: JOSH MOSLEY MR: [id number] ACCT: [id number] AUTHENTICATING CLINICIAN: LEMUEL RYAN MD JOB: [id number] OPERATIVE REPORT DATE OF OPERATION: 08/17/2003 INDICATIONS [...] to the recovery room in stable condition. 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
--- OUTSIDE RECORDS SUMMARY | 2022-06-28 09:03 | XMS_ITS | Encounter Summary ---
:1960 Author Organization [employer] Address [address], [place] [address] Care Team Providers Name Role Phone Hansa Lewis APRN YARED Primary Care Provider [phone] Encounter Details Date Type Department Care Team Description 08/25/2003 PN Conversion Only CONV [id number] Kyaw March [address] YANCI Foster MD [facility] [address] [place] [address] [phone] (Wo rk) Social History Tobacco Use Types Packs/Day Years Used Date Smoking Tobacco: Never Assessed Sex Assigned at Date Recorded Not on file documented as of this encounter Progress Notes Kyaw Ryan MD - 08/25/2003 12:01 AM CST Progress Notes signed by Kyaw Ryan MD at 08/26/03 0653 Author: Kyaw Ryan MD Service: (none) Author Type: Physician Filed: 11/09/10 1824 Note Time: 08/25/03 0001 Status: Signed Supervisor Inspection Room: Kyaw Ryan MD (Physician) NAME: BRYCE MOSLEY MR: [id number] ACCT: [id number] VISIT: [id number] DICTATING CLINICIAN: KYAW RYAN MD JOB: [id number] CLINIC PROGRESS NOTE DATE OF VISIT: 08/25/2003 ASSESSMENT: Well postop visit. PLAN: We will recommend support stockings after the Aldo wraps are discontinued in one week. He [...] anterior singh, but is recovering quite nicely. [id number] C: 08/25/03 19:35 DOCUMENT: [id number] GER CREATIVE SERVICES Hansa Lewis APRN, CNP - 08/12/2003 12:01 AM CST Progress Notes signed by CRISTINA Steele at 01/10/04 1635 Author: CRISTINA Steele Service: (none) Author Type: (none) Filed: 11/09/10 1811 Note Time: 08/12/03 0001 Status: Signed Supervisor Inspection Room: CRISTINA Steele (Nurse Practitioner) NAME: BRYCE MOSLEY MR: [id number] ACCT: [id number] VISIT: [id number] DICTATING CLINICIAN: HANSA LEWIS CNP,RN JOB: [id number] CLINIC PROGRESS NOTE DATE OF VISIT: 08/12/2003 [...] genitourinary all unremarkable. OBJECTIVE: Please refer to [facility] preop form for physical exam. Labs: Include [...] reviewed today with Dr. Garcia. TT: CT: [id number] C: 08/13/03 05:19 DOCUMENT: [id number] Kyaw Ryan MD - 08/04/2003 12:01 AM CST Progress Notes signed by Kyaw Ryan MD at 08/16/03 0731 Author: Kyaw Ryan MD Service: (none) Author Type: Physician Filed: 11/09/10 1801 Note Time: 08/04/03 0001 Status: Signed Supervisor Inspection Room: Kyaw Ryan MD (Physician) NAME: BRYCE MOSLEY MR: [id number] ACCT: [id number] VISIT: [id number] DICTATING CLINICIAN: KYAW RYAN MD JOB: [id number] CLINIC PROGRESS NOTE DATE OF VISIT: 08/04/2003 [...] was clearly evident that there is a elementary science teacher present on the anterior lateral compartment where [...] minutes. TT: Twenty-five minutes. CT: Twenty minutes. MTS:[id number] C: 08/05/03 08:11 DOCUMENT: [id number] GER CREATIVE SERVICES Kyaw Ryan MD - 07/28/2003 12:01 AM CST Progress Notes signed by Kyaw Ryan MD at 07/30/03 1027 Author: Kyaw Ryan MD Service: (none) Author Type: Physician Filed: 11/09/10 1752 Note Time: 07/28/03 0001 Status: Signed Supervisor Inspection Room: Kyaw Ryan MD (Physician) NAME: BRYCE MOSLEY MR: [id number] ACCT: [id number] VISIT: [id number] DICTATING CLINICIAN: KYAW RYAN MD JOB: [id number] CLINIC PROGRESS NOTE DATE OF VISIT: 07/28/2003 [...] results. TT: CT: CC: HANSA LEWIS CNP,RN [id number] C: 07/28/03 17:11 DOCUMENT: [id number] GER CREATIVE SERVICES Hansa Lewis APRN, CNP - 07/19/2003 12:01 AM CST Progress Notes signed by CRISTINA Steele at 08/30/03 0949 Author: CRISTINA Steele Service: (none) Author Type: (none) Filed: 11/09/10 1742 Note Time: 07/19/03 0001 Status: Signed Supervisor Inspection Room: CRISTINA Steele (Nurse Practitioner) NAME: BRYCE MOSLEY MR: [id number] ACCT: [id number] VISIT: [id number] DICTATING CLINICIAN: HANSA LEWIS CNP,RN JOB: [id number] CLINIC PROGRESS NOTE DATE OF VISIT: 07/19/2003 [...] to keep his leg elevated, used an ALDO wrap for decompression and Advil intermittently for discomfort and says that it is much improved but there is still some tenderness associated with it. He is here today requesting information and next step the process. CURRENT MEDICATIONS: Prinivil 20 mg daily, atenolol 50 mg daily, Zantac 150 mg b.i.d. ADR/ALLERGIES: NONE KNOWN. OBJECTIVE: VS: BP: 132/84. P: 72. Wt: 198.8 lb. Bryce appears well. Alert and oriented times 3. [...] I encouraged him to continue using the ALDO wrap and demonstrate how to wrap that from the ankle up. He is to keep using the Advil 400 mg 3 times a day to be taken with food and to keep his leg elevated as much as possible. He is referred to vascular surgeon for consultation. TT: CT: [id number]:[id number] C: 07/19/03 15:15 DOCUMENT: [id number] GER CREATIVE SERVICES Hansa Lewis APRN, RADIOGRAPHER MAMMOGRAPHER - 07/14/2003 12:01 AM CST Phone Note signed by CRISTINA Steele at 08/30/03 0948 Author: CRISTINA Steele Service: (none) Author Type: (none) Filed: Note Time: 07/14/03 0001 Status: Signed NAME: BRYCE MOSLEY: [id number] ACCT: VISIT: DICTATING CLINICIAN: HANSA LEWIS CNP,RN JOB: [id number] CLINIC PHONE CALL DATE OF PHONE CALL: [...] and to begin wearing a wide band ALDO wrap for compression and to keep his leg elevated as much as possible. He is to follow up with me in clinic next week and we will discuss referral to surgery at that time. LAE:[id number] C: 07/14/03 14:20 DOCUMENT: [id number] GER CREATIVE SERVICES Hansa Lewis APRN, CNP - 07/13/2003 12:01 AM CST Progress Notes signed by CRISTINA Steele at 08/30/03 0947 Author: CRISTINA Steele Service: (none) Author Type: (none) Filed: 11/09/10 1738 Note Time: 07/13/03 0001 Status: Signed Supervisor Inspection Room: CRISTINA Steele (Nurse Practitioner) NAME: BRYCE MOSLEY MR: [id number] ACCT: [id number] VISIT: [id number] DICTATING CLINICIAN: HANSA LEWIS CNP,RN JOB: [id number] CLINIC PROGRESS NOTE DATE OF VISIT: 07/13/2003 [...] BP: 124/76. P: 76. Wt: 197 lb. Bryce appears comfortable. On examining the right leg [...] lower extremity. PLAN: He is referred to [facility] for venous Doppler ultrasound. If positive he is to refer to the emergency room for admission. I have consulted with Dr. Garcia and his pager number is given for any necessary consultation tonight. TT: CT: [id number] C: 07/14/03 07:21 DOCUMENT: [id number] GER CREATIVE SERVICES Phone Note, Clinician - 05/25/2003 12:01 AM CST Phone Note signed by CRISTINA Steele at 06/03/03 1503 Author: Clinician Phone Note Service: (none) Author Type: Resource Filed: 08/25/03 0000 Note Time: 05/25/03 0001 Status: Signed Supervisor Inspection Room: Clinician Phone Note (Resource) - TREATING PROVIDER: HANSA LEWIS SUBJECTIVE: * HOME PHONE:[phone] * ALLERGIES/SENSITIVITIES... * WORK PHONE:[phone] * CURRENT MEDICATIONS... PERTINENT PAST HISTORY... ASSESSMENT: rx refill DISPOSITION: NO DISPOSITION GIVEN PLAN: [facility] [place] [place] COMMENTS... Per Hansa Lewis CMP: Lisinopril 20mg #30 x 1 year. This was faxed into [facility] by Tony Chavis at [phone]. CALL BY AYUSH LICEA 05/25/2003 01:09PM [phone] ADDENDUM: GER CREATIVE SERVICES Phone Note, Clinician - 05/14/2003 12:01 AM CDT Phone Note filed by Clinician Phone Note at 11/07/10 6887 Author: Clinician Phone Note Service: (none) Author Type: Resource Filed: 11/07/10 1224 Note Time: 05/14/03 0001 Status: Signed Supervisor Inspection Room: Clinician Phone Note (Resource) TO: HANSA LEWIS FROM: JULIO CÉSAR SURESH RN [phone] * PROVIDER MESSAGE: ROUTINE * 05/14/03 01:43PM * *WITHIN 4 HOURS * MESSAGE: Pt was on zantac 150mg BID * HOME PHONE:[phone] * but was to try over the counter * WORK PHONE:[phone] * Prilosec for 2 week trial. * CONTACT PHONE:[phone] * states that the prilosec is not [...] BY JULIO CÉSAR SURESH RN 05/14/2003 01:34PM [phone] ADDENDUM: Hansa Montoya APRN, CNP - 05/07/2003 12:01 AM CDT Progress Notes signed by CRISTINA Steele at 05/21/03 0939 Author: CRISTINA Steele Service: (none) Author Type: (none) Filed: 11/09/10 1626 Note Time: 05/07/03 0001 Status: Signed Supervisor Inspection Room: CRISTINA Steele (Nurse Practitioner) NAME: BRYCE MOLSEY MR: [id number] ACCT: [id number] VISIT: [id number] DICTATING CLINICIAN: HANSA LEWIS CNP,RN JOB: [id number] CLINIC PROGRESS NOTE DATE OF VISIT: 05/07/2003 SUBJECTIVE: : 1960. Bryce is in clinic today for continued blood [...] should trial a two week course of zazt-fzt-wnsekih Prilosec and then resume use of the Zantac. If he continues to have problems, we need to consider the possibility of erosive esophagitis and I would want him to follow up in clinic before one year. TT: CT: [id number]:[id number] C: 05/09/03 20:10 DOCUMENT: [id number] GER CREATIVE SERVICES documented in this encounter Plan of Treatment Not on filedocumented as of this encounter Visit Diagnoses Not on filedocumented in this encounter Care Teams Field Tax Auditor Relationship Specialty Start Date End Date Hansa Lewis, DELMA, RADIOGRAPHER MAMMOGRAPHER PCP - General 10/22/10 11/30/12 [address] [place] [address] documented as of this encounter
--- OUTSIDE RECORDS SUMMARY | 2022-06-28 09:04 | XMS_ITS | Encounter Summary ---
:1960 Author Organization [facility] Address [address] [place] [address] Care Team Providers Name Role Phone Unavailable Primary Care Provider Unavailable Reason for Visit Appointment Request (Routine) - Closed Specialty Diagnoses / Procedures Referred By Contact Refer red To Contact Nephrology and Terrence Hernandez Jr., Hypertension M.DKirt [address] [facility], [address] [address] Referral ID Status Reason Start Date Expiration Date Visits Requ ested Visits Authorized [id number] Closed 04/28/2020 04/28/2021 1 1 Encounter Details Date Type Department Care Team Description 05/10/2020 External Outreach Division of Amy Ryan Ki dney Disease (CKD), Stage 3a Glomerular Filtration Rate (GFR) 45 To 59 (HCC) (Primary Dx); Nephrology and Alex Jolly Jr., Diabetes Samara litus Type 2 (HCC); Hypertension in D.O. Osteodystrophy Renal; [place], [place] [address] [facility] Hyperlipidemia Mixed; [address] [place], [place] Hypertension Essential Prima ry; [place] [address] Nonspecific Reactive Hepatitis [address] [phone] Social History Tobacco Use Types Packs/Day Years Used Date Smoking Tobacco: Never Assessed Sex Assigned at Date Recorded Not on file documented as of this encounter Consult Notes Alex Ryan Jr., Jon.OKirt - 05/10/2020 2:30 PM CDT Please see scanned in note under document viewer tab for the [facility] [place] outreach visit from this date. documented in [...]
--- OUTSIDE RECORDS SUMMARY | 2022-06-28 09:04 | XMS_ITS | Encounter Summary ---
:1960 Author Organization [facility] Address [address] [place] [address] Care Team Providers Name Role Phone Unavailable Primary Care Provider Unavailable Reason for Visit Appointment Request (Routine) - Closed Specialty Diagnoses / Procedures Referred By Contact Refer red To Contact Nephrology and Hypertension Referral ID Status Reason Start Date Expiration Date Visits Requ ested Visits Authorized [id number] Closed 06/09/2020 06/09/2021 1 1 Encounter Details Date Type Department Care Team Description 07/04/2020 External Outreach Division of [place], Amy Ki dney Disease (CKD), Stage 3a Glomerular Filtration Rate (GFR) 45 To 59 (HCC) (Primary Dx); Nephrology and Alex Jolly Jr., Osteodystrop hy Renal; Hypertension in D.O. Diabetes Mellitus Type 2 (HCC); [place], [place] [address] [facility] Hyperlipidemia Mixed; [address] [place], [place] Hypertension [place] [address] [phone] Social History Tobacco Use Types Packs/Day Years Used Date Smoking Tobacco: Never Assessed Sex Assigned at Date Recorded Not on file documented as of this encounter Progress Notes Alex Ryan Jr., D.O. - 07/04/2020 2:00 PM CST Please see scanned in note under document viewer tab for the [facility] [place] outreach visit from this date. UP TECHNICIAN documented in this encounter Plan of Treatment Not on filedocumented as of this encounter Visit Diagnoses Diagnosis Chronic Kidney Disease (CKD), Stage 3a G lomerular Filtration Rate (GFR) 45 To 59 (HCC) - Primary Osteodystrophy Renal Diabetes Mellitus Type 2 (HCC) Hyperlipidemia Mixed Hypertension Essential Primary documented in this encounter
--- OUTSIDE RECORDS SUMMARY | 2022-06-28 09:04 | XMS_ITS | Encounter Summary ---
:1960 Author Organization [facility] Address [address] [place] [address] Care Team Providers Name Role Phone Unavailable Primary Care Provider Unavailable Reason for Visit Appointment Request (Routine) - Closed Specialty Diagnoses / Procedures Referred By Contact Refer red To Contact Nephrology and Hypertension Referral ID Status Reason Start Date Expiration Date Visits Requ ested Visits Authorized [id number] Closed 02/02/2022 02/02/2023 1 Encounter Details Date Type Department Care Team Description 02/27/2022 External Outreach Division of [place], Chronic Ki dney Disease (CKD), Stage 3b Glomerular Filtration Rate (GFR) 30 To 44 (HCC) (Primary Dx); Nephrology and Alex Jolly Jr., Diabetes Samara litus Type 2 (HCC); Hypertension in D.O. Hyperlipidemia Mixed; [place], [place] [address] [facility] Hypertensive Chronic Kidney Disease (CKD ) Stage 3b Glomerular Filtration Rate (GFR) 30 To 44 (HCC); [address] [place], [place] [address] [phone] Social History Tobacco Use Types Packs/Day Years [...] Progress Notes Alex Ryan Jr., D.O. - 02/27/2022 9:30 AM CDT Referring Provider: No primary care provider on file. 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 He [...] Glomerular Filtration Rate (GFR) 30 To 44 ([facility]) His renal function remains gratifyingly stable, I [...]
--- OUTSIDE RECORDS SUMMARY | 2022-06-28 09:04 | XMS_ITS | Encounter Summary ---
:1960 Author Organization [employer] Address [address], [place] [address] Care Team Providers Name Role Phone Unavailable Primary Care Provider Unavailable Encounter Details Date Type Department Care Team Description 09/09/1995 - Hospital Encounter ALEVISM CONVERSION Arnulfo Monterroso, 09/10/1995 [address] [facility] [address] [place], [place] [address] Social History Tobacco Use Types Packs/Day Years Used Date Smoking Tobacco: Never Assessed Sex Assigned at Date Recorded Not on file documented as of this encounter Plan of Treatment Not on filedocumented as of this encounter Procedures Procedure Name Priority Date/Time Associated Comments Diagnosis ANC RESULT Discharge 09/09/1995 7:29 Results for this CONVERSION DEFAULT Decision AM NEUROLOGICAL PHYSIOTHERAPIST procedure are in ORDER the results section. documented in this encounter Results Anc Result Conversion Default Order (09/09/1995 7:29 AM NEUROLOGICAL PHYSIOTHERAPIST) Anatomical Region Laterality Modality Other Specimen (Source) Anatomical Location Collection Method / Collectio n Time Received Time / Laterality Volume Impressions 09/09/1995 7:29 AM NEUROLOGICAL PHYSIOTHERAPIST : Normal bilateral renal flow and functi on. ??. Narrative 09/09/1995 7:29 AM NEUROLOGICAL PHYSIOTHERAPIST DOSE: ??10.9 mCi Tc 99m MAG-3, Lot #[id number]. FINDINGS: There is prompt symmetric mady l flow. ??Both kidneys demonstrate normal uptake and excretion on the static images with no evidence of obstruction identified. Procedure Note Al Valverde MD - 09/28/2016Format ting of this note might be different from the original. DOSE: 10.9 mCi Tc 99m MAG-3, Lot #[id number] . FINDINGS: There is prompt symmetric mady l flow. Both kidneys demonstrate normal uptake and excretion on the static images with no evidence of obstruction identified. IMPRESSION : Normal bilateral renal flow and functi on. . Arnulfo Monterroso MD RAD GD documented in this encounter Visit Diagnoses Not on filedocumented in this encounter
--- OUTSIDE RECORDS SUMMARY | 2022-06-28 09:04 | XMS_ITS | Encounter Summary ---
:1960 Author Organization [employer] Address [address] [address] Care Team Providers Name Role Phone Hansa Lewis YARED NGUYỄN Primary Care Provider [phone] Encounter Details Date Type Department Care Team Description 11/06/1996 PN Conversion Only MORMON CONVERSION Jessica Monterroso MD [address] [facility] [address] [facility] [address] [place], [place] [address] (Wo rk) Social History Tobacco [...] (11/06/1996 4:41 PM CDT) P athologist Signature Magnesium 2.3 1.8 2.4MG/D HP CONVERSION L Specimen (Source) Anatomical Collection Method Collection Time Re ceived Time Location / / Volume Laterality 11/06/1996 4:41 PM CDT Arnulfo Monterroso MD LAB_1 Performing Organization Address City/State/ZIP Code Phon e Number HP CONVERSION documented in this encounter Visit Diagnoses Not on filedocumented in this encounter Care Teams Carton Inspector Relationship Specialty Start Date End Date Hansa Lewis APRN, INDUSTRIAL COMMERCIAL GROUNDSKEEPER PCP - General 10/22/10 11/30/12 [address] [place] [address] documented as of this encounter
--- OUTSIDE RECORDS SUMMARY | 2022-06-28 09:04 | XMS_ITS | Encounter Summary ---
:1960 Author Organization [facility] Address [address] [place] [address] Care Team Providers Name Role Phone Unavailable Primary Care Provider Unavailable Encounter Details Date Type Department Care Team Description 01/24/2022 Clinical Communication Division of Nephrology Alex Ryan and Hypertension rai Jolly Jr., D.O. [place], [place] [address] [facility] [address] [place] [address] [phone] Social History Tobacco Use Types Packs/Day Years Used Date Smoking Tobacco: Never Assessed Sex Assigned at Date Recorded Not on file documented as of this encounter Miscellaneous Notes Telephone Encounter - Alex Ryan Jr., D.O. - 01/24/2022 5:39 PM CDT Phone note: Asked to give him an emergent phone call. I contacted this evening. He had called the clinic at [place] regarding situation which developedduring his pulmonary function test. I appreciate. His echocardiogram performed at [facility], and this was relatively normal. He [...] is scheduled for a chest x-ray in [place], but had not completed this yet. He relates additionally that the emergency room stated that there is magnesium medications which get into cells better than the aspu-ind-vvummdr supplements. We both agreed however there is recent magnesium levels were normal. His cramping situation has been challenging in the past. I suggested he reschedule pulmonary function tests elevated he is well hydrated and not fatigued. Hehas a stress test arranged as well for cardiac function, and we are set to visit socd-ll-[id number], at which point we can decide whether pulmonary and/or Cardiology needs to visit with him. documented in this encounter Plan of Treatment Not on filedocumented as of this encounter Visit Diagnoses Not on filedocumented in this encounter
--- OUTSIDE RECORDS SUMMARY | 2022-06-28 09:04 | XMS_ITS | Encounter Summary ---
:1960 Author Organization [employer] Address [address] [place] [address] Care Team Providers Name Role Phone Unavailable Primary Care Provider Unavailable Encounter Details Date Type Department Care Team Description 12/10/1995 - Hospital Encounter [facility] Arnulfo Monterroso MD [address] [place], [place] [id number] 12/11/[address] Arnlufo Monterroso MD [address] [place], [place] [id number] [place] [address] Social History Tobacco Use Types [...]
--- OUTSIDE RECORDS SUMMARY | 2022-06-28 09:04 | XMS_ITS | Encounter Summary ---
:1960 Author Organization [facility] Address [address] [place] [address] Care Team Providers Name Role Phone Unavailable Primary Care Provider Unavailable Reason for Visit Appointment Request (Routine) - Closed Specialty Diagnoses / Procedures Referred By Contact Refer red To Contact Nephrology and Hypertension Referral ID Status Reason Start Date Expiration Date Visits Requ ested Visits Authorized [id number] Closed 12/21/2021 12/21/2022 1 Encounter Details Date Type Department Care Team Description 01/01/2022 External Outreach Division of Amy Ryan Ki dney Disease (CKD), Stage 3b Glomerular Filtration Rate (GFR) 30 To 44 (HCC) (Primary Dx); Nephrology and Alex Jolly Jr., Diabetes Samara litus Type 2 (HCC); Hypertension in D.O. Hypertension Essential Primary; [place], [place] [address] [facility] Osteodystrophy Renal [address] [place] [address] [phone] Social History Tobacco Use Types Packs/Day Years Used Date Smoking Tobacco: Never Assessed Sex Assigned at Date Recorded Not on file documented as of this encounter Progress Notes Alex Ryan Jr., D.O. - 01/01/2022 4:30 PM CDT Please see scanned in note under document viewer tab for the [facility] [place] outreach visit from this date. Medical Problems [...]
--- OUTSIDE RECORDS SUMMARY | 2022-06-28 09:04 | XMS_ITS | Encounter Summary ---
:1960 Author Organization [employer] Address [address], [place] [address] Care Team Providers Name Role Phone Hansa Lewis APRN, CNP Primary Care Provider [phone] Encounter Details Date Type Department Care Team Description 10/21/2002 PN Conversion Only HERRICK CONVERSIO N Hansa Lewis APRN, [address] [place] [address] [address] [facility] [address] [place], [place] [address] (Wo rk) Social History Tobacco Use Types Packs/Day Years Used Date Smoking Tobacco: Never Assessed Sex Assigned at Date Recorded Not on file documented as of this encounter Plan of Treatment Not on filedocumented as of this encounter Procedures Procedure Name Priority Date/Time Associated Diagnosis Comme nts CREATININE / GFR Routine 10/21/2002 5:03 PM Resul ts for this OPERATIONS PLANNER procedure are i n the results section. POTASSIUM Routine 10/21/2002 5:03 PM Results f or this OPERATIONS PLANNER procedure are i n the results section. BUN Routine 10/21/2002 5:03 PM Results f or this OPERATIONS PLANNER procedure are i n the results section. documented in this encounter Results BUN (10/21/2002 5:03 PM OPERATIONS PLANNER) P athologist Signature Blood Urea 21 5 - 26 HP CONVERSION Nitrogen mg/dL Specimen (Source) Anatomical Collection Method Collection Time Re ceived Time Location / / Volume Laterality 10/21/2002 5:03 PM OPERATIONS PLANNER Hansa Lewis APRN, CNP LAB_1 Performing Organization Address [facility] Phon e Number HP CONVERSION (ABNORMAL) Creatinine / GFR (10/21/2002 5:03 PM OPERATIONS PLANNER) Analysis Performed At Patho logist Time Signature Creatinine 1.6 (H) 0.5 - 1.5 HP CONVERSION Serum mg/dL Specimen (Source) Anatomical Collection Method Collection Time Re ceived Time Location / / Volume Laterality 10/21/2002 5:03 PM OPERATIONS PLANNER Hansa Lewis APRN, CNP LAB_1 Performing Organization Address [facility] Phon e Number HP CONVERSION Potassium (10/21/2002 5:03 PM OPERATIONS PLANNER) P athologist Signature Potassium 5.0 3.5 - 5.2 HP CONVERSION meq/L Specimen (Source) Anatomical Collection Method Collection Time Re ceived Time Location / / Volume Laterality 10/21/2002 5:03 PM OPERATIONS PLANNER Hansa Lewis APRN, CNP LAB_1 Performing Organization Address [facility] Phon e Number HP CONVERSION documented in this encounter Visit Diagnoses Not on filedocumented in this encounter Care Teams Wind Technician Relationship Specialty Start Date End Date Hansa Lewis APRN, CNP PCP - General 10/22/10 11/30/12 [address] [id number] documented as of this encounter
--- OUTSIDE RECORDS SUMMARY | 2022-06-28 09:04 | XMS_ITS | Encounter Summary ---
:1960 Author Organization [facility] Address [address] [place] [address] Care Team Providers Name Role Phone Unavailable Primary Care Provider Unavailable Reason for Visit Appointment Request (Routine) - Closed Specialty Diagnoses / Procedures Referred By Contact Refer red To Contact Nephrology and Hypertension Referral ID Status Reason Start Date Expiration Date Visits Requ ested Visits Authorized [id number] Closed 11/04/2020 11/04/2021 1 1 Encounter Details Date Type Department Care Team Description 01/04/2021 External Outreach Division of Amy Ryan dney Disease (CKD), Stage 3a Glomerular Filtration Rate (GFR) 45 To 59 (HCC) (Primary Dx); Nephrology and Alex Jolly Jr., Osteodystrop hy Renal; Hypertension in D.O. Diabetes Mellitus Type 2 (HCC); [place], [place] [address] [facility] Hyperlipidemia Mixed; [address] [place], [place]pert[place] [phone] Social History Tobacco Use Types Packs/Day Years Used Date Smoking Tobacco: Never Assessed Sex Assigned at Date Recorded Not on file documented as of this encounter Progress Notes Alex Ryan Jr., D.O. - 01/04/2021 3:00 PM CDT Please see scanned in note under document viewer tab for the [facility] outreach visit from this date. documented in this encounter Plan of Treatment Not on filedocumented as of this encounter Visit Diagnoses Diagnosis Chronic Kidney Disease (CKD), Stage 3a G lomerular Filtration Rate (GFR) 45 To 59 (HCC) - Primary Osteodystrophy Renal Diabetes Mellitus Type 2 (HCC) Hyperlipidemia Mixed Hypertension Essential Primary documented in this encounter
--- OUTSIDE RECORDS SUMMARY | 2022-06-28 09:04 | XMS_ITS | Encounter Summary ---
:1960 Author Organization [facility] Address [address] [place] [address] Care Team Providers Name Role Phone Hansa Lewis APRN, CNP Primary Care Provider [phone] Encounter Details Date Type Department Care Team Description 09/06/1995 PN Conversion Only YARSANISM CONVERSION Jessica Monterroso MD [address] [place], [place] [address] (Wo rk) Social History Tobacco Use Types Packs/Day Years Used Date Smoking Tobacco: Never Assessed Sex Assigned at Date Recorded Not on file documented as of this encounter Plan of Treatment Not on filedocumented as of this encounter Visit Diagnoses Not on filedocumented in this encounter Care Teams Cosmetology Teacher Relationship Specialty Start Date End Date Hansa Lewis APRN, CNP PCP - General 10/22/10 11/30/[id number] [place] [address] documented as of this encounter
--- OUTSIDE RECORDS SUMMARY | 2022-06-28 09:04 | XMS_ITS | Encounter Summary ---
:1960 Author Organization [facility] Address [address], [place] [address] Care Team Providers Name Role Phone Hansa Lewis APRYARED Ma Primary Care Provider [phone] Encounter Details Date Type Department Care Team Description 10/25/1995 PN Conversion Only MU-ISM CONVERSION Jessica Monterroso MD [address] [facility] [address] [facility] [address] [place], [place] [address] (Wo rk) Social History Tobacco Use Types Packs/Day Years Used Date Smoking Tobacco: Never Assessed Sex Assigned at Date Recorded Not on file documented as of this encounter Plan of Treatment Not on filedocumented as of this encounter Procedures Procedure Name Priority Date/Time Associated Comments Diagnosis CONVERSION DEFAULT Routine 10/25/1995 5:27 PM Res ults for this INTERFACE ORDER SVP MONETIZATION procedure ar e in the results section. CONVERSION DEFAULT Routine 10/25/1995 5:27 PM Res ults for this INTERFACE ORDER SVP MONETIZATION procedure ar e in the results section. documented in this encounter Results Conversion Default Interface Order (10/25/1995 5:27 PM SVP MONETIZATION) P athologist Signature Magnesium 2.0 1.8 2.4MG/D HP CONVERSION L Specimen (Source) Anatomical Collection Method Collection Time Re ceived Time Location / / Volume Laterality 10/25/1995 5:27 PM SVP MONETIZATION Arnulfo Monterroso MD LAB_1 Performing Organization Address City/State/ZIP Code Phon e Number HP CONVERSION Conversion Default Interface Order (10/25/1995 5:27 PM SVP MONETIZATION) P athologist Signature Blood Urea 17 5 26MG/D L HP CONVERSION Nitrogen Creatinine 1.3 0.5 HP CONVERSION Serum 1.5MG/D L Sodium 143 137 HP CONVERSION 147MEQ/ L Potassium 4.5 3.5 HP CONVERSION 5.2MEQ/ L Uric Acid Serum 6.9 2.5 HP CONVERSION 8.5MG/D L Specimen (Source) Anatomical Collection Method Collection Time Re ceived Time Location / / Volume Laterality 10/25/1995 5:27 PM SVP MONETIZATION Arnulfo Monterroso MD LAB_1 Performing Organization Address City/State/ZIP Code Phon e Number HP CONVERSION documented in this encounter Visit Diagnoses Not on filedocumented in this encounter Care Teams Eap Clinician Relationship Specialty Start Date End Date Hansa Lewis, DELMA, DUKEY RIDER PCP - General 10/22/10 11/30/12 [id number] [id number] documented as of this encounter
--- OUTSIDE RECORDS SUMMARY | 2022-06-28 09:04 | XMS_ITS | Encounter Summary ---
:1960 Author Organization [facility] Address [address], [place] [address] Care Team Providers Name Role Phone Hansa Lewis APRYARED Ma Primary Care Provider [phone] Encounter Details Date Type Department Care Team Description 09/06/1995 PN Conversion Only CONFUCIANIST CONVERSION Jessica Monterroso MD [address] [facility] [address] [place], [place] [address] (Wo rk) Social History Tobacco Use Types Packs/Day Years Used Date Smoking Tobacco: Never Assessed Sex Assigned at Date Recorded Not on file documented as of this encounter Plan of Treatment Not on filedocumented as of this encounter Procedures Procedure Name Priority Date/Time Associated Comments Diagnosis CONVERSION DEFAULT Routine 09/06/1995 4:56 PM Res ults for this INTERFACE ORDER STREETCAR MOTORMAN procedure ar e in the results section. CONVERSION DEFAULT Routine 09/06/1995 4:56 PM Res ults for this INTERFACE ORDER STREETCAR MOTORMAN procedure ar e in the results section. CONVERSION DEFAULT Routine 09/06/1995 4:56 PM Res ults for this INTERFACE ORDER STREETCAR MOTORMAN procedure ar e in the results section. documented in this encounter Results (ABNORMAL) Conversion Default Interface Order (09/06/1995 4:56 PM STREETCAR MOTORMAN) [facility] Method Time Signature Lab Glucose 99 60 [...] / / Volume Laterality 09/06/1995 4:56 PM STREETCAR MOTORMAN Arnulfo Monterroso MD LAB_1 Performing Organization Address City/State/ZIP Code Phon e Number HP CONVERSION Conversion Default Interface Order (09/06/1995 4:56 PM STREETCAR MOTORMAN) P athologist Signature HDL Cholesterol 32 30 70MG/D HP CONVERSION L Comment: NCEP guidelines for blood HDL cholester ol: ?< 35 mg/dl High risk for coronary heart disease. ?> 60 mg/dl Negative risk factor, d ecreased risk for coronary heart disease. Specimen (Source) Anatomical Collection Method Collection Time Re ceived Time Location / / Volume Laterality 09/06/1995 4:56 PM STRE[address]CAR MOTORMAN Arnulfo Monterroso MD LAB_1 Performing Organization Address City/[facility] Phon e Number HP CONVERSION Conversion Default Interface Order (09/06/1995 4:56 PM STREETCAR MOTORMAN) P athologist Signature LDL Calculated 150 77 [...] / / Volume Laterality 09/06/1995 4:56 [address] ST[address]CAR MOTORMAN Arnulfo Monterroso MD LAB_1 Performing Organization Address [facility] Phon e Number HP CONVERSION documented in this encounter Visit Diagnoses Not on filedocumented in this encounter Care Teams Beveller Operator Relationship Specialty Start Date End Date Hansa Lewis, BOOT TRIMMER, ELECTRICAL APPLIANCE REPAIRER PCP - General 10/22/10 11/30/12 [id number] [address] documented as of this encounter
--- OUTSIDE RECORDS SUMMARY | 2022-06-28 09:04 | XMS_ITS | Clinical Summary ---
:1960 Author Organization [facility] Address [address] [place] [address] Care Team Providers Name Role Phone Unavailable Primary Care Provider Unavailable Source Comments Patient records contain information from all sites at [facility]. For routine questions regarding patient records, call [phone] during business hours, M-F 8:00 AM - 5:00 PM Central Time. Record requests for emergency care only can be directed to [phone] at any time.[facility] Medications Medication Sig Dispensed Refills Start Date [...] (GFR) 30 To 44 Hyperlipidemia Mixed 05/10/2020 Social History Tobacco Use Types Packs/Day Years [...] of 3 - 2022 Risk 3-dose series) Office Visit for Blood Pressure 05/30/2022 02/27/2022 Check / Re-check Pneumococcal vaccine (0-64 years) 05/06/2023 05/06/2018, (3 - PPSV23 if available, else PCV20) DTaP,Tdap,and Td Vaccines (2 - Td 10/12/2025 10/13/2015 or Tdap) Zoster Vaccines Completed 04/25/2019, 10/26/2017 Influenza Vaccine Completed 05/24/2022, 04/19/2021, 05/10/2020, Additional history exists Insurance Payer Benefit Plan / Subscriber ID Effective Phone Address T e Group [facility] [id number] 2019-Pres [phone] [address] PPO OPEN ACCESS ent [address] [place] [address]
[2022-06-28 12:44] LABS: Chloride* 108 mmol/L (96-114); Potassium* 4.4 mmol/L (3.6-5.1); Sodium* 141 mmol/L (135-149)
[2022-06-28 12:46] LABS: Creatinine* 1.6 mg/dL (0.5-1.5); Estimated Glomerular Filt Rate 49 ml/min
[2022-06-28 12:47] LABS: Blood Urea Nitrogen* 29 mg/dL (7-30); Calcium* 9.5 mg/dL (8.4-10.6); Carbon Dioxide* 23 mmol/L (20-32); Glucose* 105 mg/dL (60-115)
== END 2022-06-28 08:50 | disposition home or self-care (01) ==
LOC: NFLDREF 08:50
PROVIDERS: PCP Family Medicine; Visit Provider Family Medicine
DX: I10 Essential (primary) hypertension (principal)
CPT/HCPCS: 80048

== ENCOUNTER 2023-03-21 07:40 | Outpatient (CLI) | payer OTHER, SELFPAY | END 2023-03-21 07:41 | disposition home or self-care (01) | LOC: NFLDREF 14:14 | PROVIDERS: PCP Family Medicine; Referring Provider Family Medicine; Visit Provider Family Medicine | DX: E78.5 Hyperlipidemia, unspecified (principal); E11.9 Type 2 diabetes mellitus without complications; I10 Essential (primary) hypertension; N18.30 Chronic kidney disease, stage 3 unspecified; K76.0 Fatty (change of) liver, not elsewhere classified; Z12.5 Encounter for screening for malignant neoplasm of prostate | CPT/HCPCS: 80053; 80061; 82043; 82570; 84153 ==

== ENCOUNTER 2024-04-02 09:02 | Outpatient (CLI) | payer OTHER, SELFPAY ==
--- OUTSIDE RECORDS SUMMARY | 2024-04-02 09:04 | XMS_ITS | Clinical Summary ---
Author Organization [facility] Address [address] [place] [address] Care Team Providers Care Conservation Planner Name Role Phone Unavailable Primary Care Provider Unavailabl e Source Comments You are receiving this document as you are listed as the primary care provider,follow-up provider, or the patient has been referred to you for consultation.This is in compliance with the Medicare and[facility] EHR Incentive Program,which states Providers who transition their patient to another setting of careor provider of care or refers their patient to another provider of care shouldprovide summary care record for each transition of care or referral. [facility] Allergies Active Allergy Reactions Criticality Noted Date Comments Codeine 06/05/2005 PN: LW Reaction: Nausea Lisinopril Throat Irritation 09/21/2013 Medications Medication Sig Dispensed Refills Start Date End Date Status omeprazole (PRILOSEC) 20 MG capsule Take 20 mg by mouth daily. Take 1 hour before a meal. Active lancets (ACCU-CHEK FASTCLIX)Indicatio ns:Uncontrolled type 2 diabetes mellitus with hyperglycemia, without long-term current use of insulin (HRC) Use 1 Each to test three times a day. Use as directed to check blood sugars 102 Each 02/26/2017 Active blood glucose (ACCU-CHEK GUIDE) test stripIndications:U ncontrolled type 2 diabetes mellitus with hyperglycemia, without long-term current use of insulin (HRC) Use 1 Strip to test three times a day. check blood sugar before breakfast, before & 1 hour after start of largest meal 100 Strip 02/26/2017 Active Blood Glucose Monitoring Suppl (ACCU-CHEK GUIDE) w/Device KITIndications:Unc ontrolled type 2 diabetes mellitus with hyperglycemia, without long-term current use of insulin (HRC) HOLD RX, only fill if alternate supplies not covered by insurance. If not covered, substitute appropriate meter. Use to check blood sugars. 1 Kit 01/27/2019 Active chlorthalidone (HYGROTON) 25 MG tabletIndications: Chronic kidney disease, stage III (moderate) (HRC) TAKE 1 TABLET BY MOUTH DAILY. 90 Tablet 03/04/2019 Active Additional Information Patient not taking.Reported on 09/08/2019 chlorthalidone (HYGROTON) 25 MG tabletIndications: Chronic kidney disease, stage III (moderate) (HRC) Take 1 Tablet by mouth daily. 90 Tablet 3 03/03/2019 Active Additional Information Patient not taking.Reported on 09/08/2019 losartan (COZAAR) 25 MG tabletIndications: Chronic kidney disease, stage III (moderate) (HRC) Take 3 Tablets by mouth daily. 270 Tablet 3 08/26/2019 Active VENTOLIN HFA 108 (90 Base) MCG/ACT inhalerIndications :COULTER (dyspnea on exertion) INHALE 1 TO 2 PUFFS BY MOUTH EVERY 4 HOURS NEEDED 1 Each 06/28/2020 Active atorvastatin (LIPITOR) 20 MG tablet TAKE 1 TAB BY MOUTH DAILY. 90 Tablet 08/17/2020 Active metFORMIN (GLUCOPHAGE) 1000 MG tablet TAKE 1 TABLET BY MOUTH TWO TIMES A DAY WITH MEALS. 180 Tablet 09/26/2020 Active Active Problems Problem Noted Date Diagnosed Date Type 2 diabetes mellitus wit hout complication, without long-term current use of insulin 10/29/2017 Chronic kidney disease (CKD), stage III (moderat e) 06/26/2011 Esophageal reflux 05/19/2008 Overview (03/13/2017): Gastroesophageal Reflux Disease Hyperlipidemia 07/28/2007 Chronic nonalcoholic liver disease 07/28/2007 Overview (03/13/2017): Fatty Liver Essential hypertension 12/26/2002 Overview (03/13/2017): Hypertension Immunizations Name Administration Dates Next Due Flu Vac Preserv Free (3+yrs) 05/19/2008,06/06/20 07 Influenza (Fluzone 0.25, 6-35 mos) 05/28/2013 Influenza IIV4 (Quadrivalent ) 0.5mL (32201) 04/25/2019,05/06/2018,04/24/2017,2015,06/14/2015,05/28/2013 Influenza, Unspecified Formulation 05/19/2008, PCV13 (Prevnar) 10/26/2017 PPSV23 (Pneumovax) 05/06/2018 TDAP (BOOSTRIX) 10/13/2015 Td 03/10/2005 Zoster RZV (Shingrix) 04/25/2019,10/26/2017 Family History Medical History Relation Name Comments Cancer Father Heart Disease Mother Hypertension Mother Relation Name Status Comments Father Mother Social History Tobacco Use Types Packs/Day Years Used Date Smoking Tobacco: Never Smokeless Tobacco: Never Alcohol Use Standard Drinks/Week Comments Yes 0 (1 standard drink = 0.6 oz pure alcohol) Alcoholic Drinks/day: Amount:1-2 drinks; Freq:=< Monthly; PHQ-2 Answer Date Recorded PHQ-2 Score 0 04/25/2019 Sex and Gender Information Value Date Recorded Sex Assigned at Not on file Gender Identity Not on file Sexual Orientation Not on file Last Filed Vital Signs Vital Sign Reading Time Taken Comments Blood Pressure 168/87 09/08/2019 5:44 PM SCREENER PERFUMER Pulse 52 09/08/2019 5:44 PM SCREENER PERFUMER Temperature 36.8 ??C (98.2 ??F) 04/25/2019 9:10 AM CD T Respiratory Rate 16 04/25/2019 9:10 AM CDT Oxygen Saturation - - Inhaled Oxygen Concentration - - Weight 85.4 kg (188 lb 3.2 oz) 09/08/2019 5:44 P M SCREENER PERFUMER Height 184.2 cm (6' 0.5) 02/25/2018 4:20 PM CDT Body Mass Index 25.17 02/25/2018 4:20 PM CDT Plan of Treatment Health Maintenance Due Date Last Done Comments Diabetes: Eye Exam 1960 MTM Covered 1960 PSA Screening Discussion 1960 HIV Screening (Preventive Services) 1978 Adult Preventive Visit 1980 HepA (1 of 2 - Risk 2-dose series) 1981 FIT Colon Cancer Screening 10/22/2016 10/23/2015 (Co mpleted) Diabetes: Foot Exam 03/15/2018 03/15/2017 (Completed ) Diabetes: HGBA1C 12/07/2019 09/08/2019, 11/2018, 07/07/2018, Additional history exists Diabetes: Urine Microalbumin 02/20/2020 02/19/2019, 07/07/2018, 01/28/2018, Additional history exists Diabetes: Creatinine 08/18/2020 08/18/2019, 04/10/2019, 02/19/2019, Additional history exists HepB (1) 2022 COVID-19 Vaccine (2 - season) 2024 10/15/2020 Influenza (#1) 2024 05/10/2020, 11/2018, 05/06/2018, Additional history exists Diabetes: Lipid Panel 04/25/2024 04/25/2019 , 01/28/2018, 10/26/2017, Additional history exists DTaP/Tdap/Td (2 - Tdap) 10/12/2025 10/13/2015, 03/10 Pneumococcal (3 - PPSV23 or PCV20) 2027 05/06/2018, 10/26/2017 Hep C Screening (Preventive Services) Completed 01/19/2016, 07/30/2007 Zoster/Shingles Completed 04/25/2019, 10/26/2017 Hib Aged Out No longer eligi ble based on patient's age to complete this topic IPV (Polio) Aged Out No longer eligi ble based on patient's age to complete this topic MCV4 Aged Out No longer eligi ble based on patient's age to complete this topic Goals Goal Patient Goal Type Associated Problems Recent Progress Patient-Stated? Author Eating healthy Diabetes Education On track(2016 4:29 PM SCREENER PERFUMER) No Eleonora Lam, ASHIA, ASHLEY, CDCES Note: Count carbohydrates at meals and snacks. Procedures Procedure Name Priority Date/Time Associated Diagnosis Comments HGB A1C Routine 09/08/2019 6:37 PM SCREENER PERFUMER Type 2 diabetes mellitus without complication, without long-term current use of insulin (HRC) RENAL FUNCTION PANEL Routine 08/18/2019 11:20 AM SCREENER PERFUMER CKD (chronic kidney disease) stage 3, GFR 30-59 ml/min (HRC) LIPID PANEL & DIRECT LDL (IF NEEDED) Routine 04/25/2019 10:08 AM CDT Type 2 diabetes mellitus without complication, without long-term current use of insulin (HRC) ALBUMIN/CREAT RATIO Routine 02/19/2019 1 2:20 PM CDT Chronic kidney disease (CKD), stage III (moderate) (HRC) HEPATITIS C ANTIBODY, WITH REFLEX Routine 01/19/2016 3:08 PM CDT Abnormal AST and ALT from Last 3 Months or Most Recently Relevant to Health Maintenance Results * Hgb A1C (09/08/2019 6:37 PM SCREENER PERFUMER) Hemoglobin A1C 5.5 <=5.6 % 09/08/2019 9:35 PM SCREENER PERFUMER [facility] Blood Venipuncture / Unknown 09/08/2019 6:37 PM SCREENER PERFUMER 09/08/2019 6:37 PM SCREENER PERFUMER Sunny Giraldo MD LAB_1 [facility] [address] * (ABNORMAL) Renal Function Panel - in 4 months (08/18/2019 11:20 AM SCREENER PERFUMER) Sodium 140 136 - 145 mmol/L 08/18/2019 6:[address] [facility] Potassium 4.5 3.5 - 5.1 mmol/L 08/18/2019 6:[address] [facility] Chloride 101 98 - 109 mmol/L 08/18/2019 6:[address] [facility] CO2 25 20 - 29 mmol/L 08/18/2019 6:[address] [facility] Anion Gap 14 7 - 16 mmol/L 08/18/2019 6:[address] [facility] Calcium 10.6(H) 8.4 - 10.4 mg/dL 08/18/2019 6:[address] [facility] BUN 20 7 - 26 mg/dL 08/18/2019 6:[address] [facility] Creatinine 1.50(H) 0.73 - 1.18 mg/dL 08/18/2019 6:[address] [facility] GFR, Estimated 51(L) >60 mL/min/1.7 3m2 08/18/2019 6:[address] [facility] GFR, Est If 59(L) >60 mL/min/1.7 3m2 08/18/2019 6:[address] [facility] Albumin 4.8 3.5 - 5.0 g/dL 08/18/2019 6:[address] [facility] Phosphorus 4.1 2.3 - 4.7 mg/dL 08/18/2019 6:[address] [facility] Glucose 99 70 - 100 mg/dL 08/18/2019 6:[address] [facility] Comment:The given reference range is for the fasting state. Non-fasting reference range for glucose is 70 - 180 mg/dL. Hours Fasting 12 08/18/2019 6:00 PM [facility] Blood Venipuncture / Unknown 08/18/2019 11:20 AM [facility] 08/18/2019 11:[address] [facility] - 08/18/2019 6:00 PM [facility] The National Kidney Disease Education Program suggests measuring Cystatin C in patients with eGFRcrea of 45 to 59 ml/min/1.73^2 who do not have other markers of kidney damage (i.e. elevated urine Albumin/Creatinine Ratio or a prior Cystatin C confirming the presence of chronic kidney disease). Terrence Hernandez MD LAB_1 [facility] [address] [place] [address], [facility] [phone] [facility] [address] [place] [address], [facility] [phone] * (ABNORMAL) Lipid Panel - LDLD If Trig High (04/25/2019 10:08 AM CDT) [facility] Signature Cholesterol 146 0 - 199 mg/dL 04/25/2019 3:53 PM CDT [facility] Triglyceride 118 <=149 mg/dL 04/25/2019 3:53 PM T [facility] HDL Cholesterol 35(L) >=40 mg/dL 9 3:53 PM T [facility] LDL, Calculated 87 <130 mg/dL 9 3:53 PM T [facility] Non HDL Chol, Calculated 111 <=159 mg/dL 04/25/2019 3:53 PM T [facility] Cholesterol/HDL Ratio 4.2 04/25/2019 3:53 PM T [facility] Hours Fasting 15 04/25/2019 3:53 PM CDT [facility] Blood Venipuncture / Unknown 04/25/2019 10:08 AM CDT 04/25/2019 10:08 AM CDT Sunny Giraldo MD LAB_1 Performing Organization Address [facility]/ZIP Co de Phone Number [facility] [address] [place] [address], [facility] [phone] [facility] [address] [place] [address], [place] [phone] * Microalbumin Urine Random - in 1 year (02/19/2019 12:20 PM CDT) Albumin, Urine, Random 7.9 mg/L 02/19/2019 3:50 PM CDT [facility] Creatinine, Urine, Random 65 >20 mg/dL 02/19/2019 3:50 PM CDT [facility] Albumin/Creati nine Ratio, Urine, Random 12 <30 mg/g 02/19/2019 3:50 PM CDT [facility] Urine,random 02/19/2019 12:2 0 PM CDT 02/19/2019 12:20 PM CDT Terrence Hernandez MD LAB_1 Performing Organization Address [facility]/ZIP Co de Phone Number [facility] [address] [place] [address], [facility] [phone] * Hepatitis C Antibody, with Reflex (01/19/2016 3:08 PM CDT) Hepatitis C Antibody Nonreactive Non-React jessica HP CONVERSION 01/19/2016 3:08 PM CDT 01/19/2016 3:23 PM CDT Narrative HP CONVERSION - 01/19/2016 4:22 PM CDT Performed at [place] [id number] CLIA number [id number] Terrence Hernandez MD LAB_1 HP CONVERSION from Last 3 Months or Most Recently Relevant to Health Maintenance Veronica Mosley Personal/Family Self 02/26/1962 [place] [address]
--- OUTSIDE RECORDS SUMMARY | 2024-04-02 09:04 | XMS_ITS | Clinical Summary ---
Author Organization [facility] Address [place], [place] [address] Care Team Providers Care Medical Asst Name Role Phone Nathaniel Dee MD Primary Care Provider [phone] Allergies Active Allergy Reactions Criticality Noted Date Comments Codeine Nausea And Vomiting 01/23/2022 Medications Medication Sig Dispensed Refills Start Date End Date Status albuterol HFA (Ventolin HFA) 90 mcg/actuation inhaler INHALE 1 TO 2 PUFFS BY MOUTH EVERY 4 HOURS NEEDED 06/28/2020 Active atorvastatin (LIPITOR) 20 mg tablet Take 1 Tablet by mouth once daily. 08/17/2020 Active isosorbide mononitrate (IMDUR) 30 mg extended release tablet 24 Hour Take 30 mg by mouth once daily. 02/27/2022 Active losartan (COZAAR) 25 mg tablet Take 75 mg by mouth once daily. 01/22/2022 Active metFORMIN (GLUCOPHAGE) 1,000 mg tablet Take 1,000 mg by mouth two times daily with meals. 01/01/2022 Active omeprazole (PRILOSEC) 20 mg Delayed-Release capsule Take 20 mg by mouth. Active rosuvastatin (CRESTOR) 5 mg tablet Take 5 mg by mouth once daily. 01/01/2022 Active triamterene-hydrochlor othiazide, 37.5-25 mg, (MAXZIDE-25) 37.5-25 mg tablet Take 1 Tablet by mouth once daily. 12/14/2021 Active amLODIPine (NORVASC) 5 mg tabletIndications:HTN (hypertension) Take 1 Tablet (5 mg) by mouth once daily. 90 Tablet 3 03/23/2022 Active Social History Tobacco Use Types Packs/Day Years Used Date Smoking Tobacco: Never Assessed Social Connections Answer Date Recorded Frequency of Communication with Friends and Fami ly Not on file 03/23/2022 Sex and Gender Information Value Date Recorded Sex Assigned at Not on file Gender Identity Not on file Sexual Orientation Not on file Obstetrics History Last Filed Vital Signs Vital Sign Reading Time Taken Comments Blood Pressure 148/92 03/23/2022 2:32 PM CDT Pulse 88 03/23/2022 2:32 PM CDT Temperature 37.2 ??C (98.9 ??F) 01/23/2022 4:35 PM CD T Respiratory Rate 14 03/23/2022 2:32 PM CDT [...] and wt on same day) for age 18+ 1980 Hepatitis C screening for ag e 18-79 1980 Tetanus booster 1982 Colonoscopy through age 75 2007 Lipids for age 45-75 2007 Zoster (shingles) series for age 50+ (1 of 2) 2012 COVID-19 vaccine series ( season) 2024 06/06/2021, 11/05/2020, 10/15/2020 Influenza for age 50-64 03/22/2024 Pneumococcal series for age 6-64 Aged Out No longer eligible b ased on patient's age to complete this topic Care Teams Medical Asst Relationship Specialty Start Date End Date Nathaniel Dee MD [address] [place] [address] PCP - General Family Practice 01/03/22
== END 2024-04-02 09:03 | disposition home or self-care (01) ==
LOC: NFLDREF 09:02
PROVIDERS: PCP Family Medicine; Visit Provider Family Medicine
DX: E11.22 Type 2 diabetes mellitus with diabetic chronic kidney disease (principal); I12.9 Hypertensive chronic kidney disease with stage 1 through stage 4 chronic kidney disease, or unspecified chronic kidney disease; N18.32 Chronic kidney disease, stage 3b; R82.90 Unspecified abnormal findings in urine; Z12.5 Encounter for screening for malignant neoplasm of prostate
CPT/HCPCS: 80053; 80061; 82043; 82570; 82728; 83540; 83550; 83970; 84100; 84550; 86140; 87086; G0103

== ENCOUNTER 2024-05-26 16:50 | Outpatient (CLI) | payer OTHER, SELFPAY ==
--- OUTSIDE RECORDS SUMMARY | 2024-05-28 13:32 | XMS_ITS | Clinical Summary ---
Author Organization [employer] Address [address] [place] [address] Care Team Providers Care Radiologic Tech Name Role Phone Unavailable Primary Care Provider Unavailabl e Source Comments You are receiving this document as you are listed as the primary care provider,follow-up provider, or the patient has been referred to you for consultation.This is in compliance with the Medicare and[facility] EHR Incentive Program,which states Providers who transition their patient to another setting of careor provider of care or refers their patient to another provider of care shouldprovide summary care record for each transition of care or referral. [facility] Allergies Active Allergy Reactions Criticality Noted Date [...] mos) 05/28/2013 Influenza IIV4 (Quadrivalent ) 0.5mL (05395) 04/25/2019,05/06/2018,04/24/2017,2015,06/14/2015,05/28/2013 Influenza, Unspecified Formulation 05/19/2008, PCV13 (Prevnar) [...] Comments Blood Pressure 168/87 09/08/2019 5:44 PM BAKED GOODS STOCK CLERK Pulse 52 09/08/2019 5:44 PM BAKED GOODS STOCK CLERK Temperature 36.8 ??C (98.2 ??F) 04/25/2019 9:10 AM CD T Respiratory Rate 16 04/25/2019 9:10 AM CDT Oxygen Saturation - - Inhaled Oxygen Concentration - - Weight 85.4 kg (188 lb 3.2 oz) 09/08/2019 5:44 P M BAKED GOODS STOCK CLERK Height 184.2 cm (6' 0.5) 02/25/2018 4:20 PM CDT Body Mass Index 25.17 02/25/2018 4:20 PM CDT Plan of Treatment Health Maintenance Due Date Last Done Comments Diabetes: Eye Exam 1962 PSA Screening Discussion 1962 HIV Screening [...] - PPSV23 or PCV20) 2027 05/06/2018, 10/26/2017 RSV (1 - 1-dose 75+ series) 2037 Hep C Screening (Preventive Services) Completed 01/19/2016, 07/30/2007 Zoster/Shingles Completed 04/25/2019, 10/26/2017 Hib Aged Out No longer eligi ble based on patient's age to complete this topic IPV (Polio) Aged Out No longer eligi ble based on patient's age to complete this topic Infant RSV Aged Out No longer eligi ble based on patient's age to complete this topic MCV4 Aged Out No longer eligi ble based on patient's age to complete this topic Goals Goal Patient Goal Type Associated Problems Recent Progress Patient-Stated? Author Eating healthy Diabetes Education On track(2016 4:29 PM BAKED [employer] STOCK CLERK) No Eleonora Lam, ASHIA, LD, CDCES Note: Count carbohydrates at meals and snacks. Procedures Procedure Name Priority Date/Time Associated Diagnosis Comments HGB A1C Routine 09/08/2019 6:37 PM BAKED GOODS STOCK CLERK Type 2 diabetes mellitus without complication, without long-term current use of insulin (HRC) RENAL FUNCTION PANEL Routine 08/18/2019 11:20 AM BAKED GOODS STOCK CLERK CKD (chronic kidney disease) stage 3, GFR [...] Results * Hgb A1C (09/08/2019 6:37 PM BAKED [employer] STOCK CLERK) Hemoglobin A1C 5.5 <=5.6 % 09/08/2019 9:35 PM BAKED GOODS STOCK CLERK [facility] Blood Venipuncture / Unknown 09/08/2019 6:37 PM BAKED GOODS STOCK CLERK 09/08/2019 6:37 PM BAKED GOODS STOCK CLERK Sunny Giraldo MD LAB_1 [facility] [address] * (ABNORMAL) Renal Function Panel - in 4 months (08/18/2019 11:20 AM BAKED GOODS STOCK CLERK) Sodium 140 136 - 145 mmol/L 08/18/2019 6:00 PM [facility] Potassium 4.5 3.5 - 5.1 mmol/L 08/18/2019 6:00 PM [facility] Chloride 101 98 - 109 mmol/L 08/18/2019 6:00 PM [facility] CO2 25 20 - 29 mmol/L 08/18/2019 6:00 PM [facility] Anion Gap 14 7 - 16 mmol/L 08/18/2019 6:00 PM [facility] Calcium 10.6(H) 8.4 - 10.4 mg/dL 08/18/2019 6:00 PM [facility] BUN 20 7 - 26 mg/dL 08/18/2019 6:00 PM [facility] Creatinine 1.50(H) 0.73 - 1.18 mg/dL 08/18/2019 6:00 PM [facility] GFR, Estimated 51(L) >60 mL/min/1.7 3m2 08/18/2019 6:00 PM [facility] GFR, Est If 59(L) >60 mL/min/1.7 3m2 08/18/2019 6:00 PM [facility] Albumin 4.8 3.5 - 5.0 g/dL 08/18/2019 6:00 PM [facility] Phosphorus 4.1 2.3 - 4.7 mg/dL 08/18/2019 6:00 PM [facility] Glucose 99 70 - 100 mg/dL 08/18/2019 6:00 PM [facility] Comment:The given reference range is for the fasting state. Non-fasting reference range for glucose is 70 - 180 mg/dL. Hours Fasting 12 08/18/2019 6:00 PM [facility] Blood Venipuncture / Unknown 08/18/2019 11:20 AM [facility] 08/18/2019 11:21 AM [facility] - 08/18/2019 6:00 PM [facility] The National Kidney Disease Education Program suggests measuring Cystatin C in patients with eGFRcrea of 45 to 59 ml/min/1.73^2 who do not have other markers of kidney damage (i.e. elevated urine Albumin/Creatinine Ratio or a prior Cystatin C confirming the presence of chronic kidney disease). Terrence Hernandez MD LAB_1 [facility] [address] [place] [address], [facility] [phone] [facility] [address] [place] [address], [place] [phone] * (ABNORMAL) Lipid Panel - LDLD If Trig High (04/25/2019 10:08 AM CDT) Cholesterol 146 0 - 199 mg/dL 04/25/2019 3:53 PM CDT [facility] Triglyceride 118 <=149 mg/dL 04/25/2019 3:53 PM T [facility] HDL Cholesterol 35(L) >=40 mg/dL 9 3:53 PM T [facility] LDL, Calculated 87 <130 mg/dL 9 3:53 PM T [facility] Non HDL Chol, Calculated 111 <=159 mg/dL 04/25/2019 3:53 PM T [facility] Cholesterol/HDL Ratio 4.2 04/25/2019 3:53 PM T [facility] Hours Fasting 15 04/25/2019 3:53 PM T [facility] Blood Venipuncture / Unknown 04/25/2019 10:08 AM CDT 04/25/2019 10:08 AM CDT Sunny Giraldo MD LAB_1 Performing Organization Address [facility]/ZIP Co de Phone Number [facility] [address] [place] [address], [facility] [phone] [facility] [address] [place] [address], [facility] [phone] * Microalbumin Urine Random - in 1 year (02/19/2019 12:20 PM CDT) Albumin, Urine, Random 7.9 mg/L 02/19/2019 3:50 PM CDT [facility] Creatinine, Urine, Random 65 >20 mg/dL 02/19/2019 3:50 PM CDT [facility] Albumin/Creati nine Ratio, Urine, Random 12 <30 mg/g 02/19/2019 3:50 PM CDT [facility] Urine,random 02/19/2019 12:2 0 PM CDT 02/19/2019 12:20 PM CDT Terrence Hernandez MD LAB_1 Performing Organization Address [facility]/ZIP Co de Phone Number [facility] [address] [place] [address], [facility] [phone] * Hepatitis C Antibody, with Reflex (01/19/2016 3:08 PM CDT) Hepatitis C Antibody Nonreactive Non-React jessica HP CONVERSION 01/19/2016 3:08 PM CDT 01/19/2016 3:23 PM CDT Narrative HP CONVERSION - 01/19/2016 4:22 [place] [address] CLIA number [id number] Terrence Hernandez MD LAB_1 HP CONVERSION from Last 3 Months or Most Recently Relevant to Health Maintenance Veronica Mosley Personal/Family Self 02/26/1962 [place] [address]
--- OUTSIDE RECORDS SUMMARY | 2024-05-28 13:32 | XMS_ITS | Clinical Summary ---
Author Organization [facility] Address [place], [place] [address] Care Team Providers Care Material Movers Name Role Phone Nathaniel Dee MD Primary Care Provider [phone] Allergies Active Allergy Reactions Criticality Noted Date [...] once daily. 90 Tablet 3 03/23/2022 Active Encounters Date Type Department Care Team Description 04/17/2024 Transcribe Orders [facility] [place] [address] [facility] [place] [address] [place] [phone] Nathaniel Dee MD 04/07/2024 8:34 AM CDT - 04/07/2024 11:59 PM CDT Hospital Encounter [facility] [place] [facility] [address] [place] [address] Nathaniel Dee MD Shortness of breath 04/07/2024 Travel 04/02/2024 Transcribe Orders [facility] [place] [facility] [address] [place] [address] Nathaniel Dee MD from Last 3 Months Social History Tobacco [...] 01/23/2022 4:35 PM CDT Plan of Treatment Upcoming Encounters Date Type Department Care Team (Late st Contact Info) Description 08/03/2024 2:40 PM RESEARCH ADMINISTRATOR Office Visit [facility] [place] [address] [facility] [place] [phone] Brenton Maddox MD [address] [facility] [place] [address] Health Maintenance Due Date Last Done Comments Tdap 1973 Depression screening for age 12+ 1974 HIV for age 15-65 1977 BMI (ht and wt on same day) for age 18+ 1980 Hepatitis C screening for age 18-79 1980 Tetanus booster 1982 Colonoscopy through age 75 2007 Lipids for age 45-75 2007 Zoster (shingles) series for age 50+ (1 of 2) 2012 COVID-19 vaccine series ( season) 2024 05/20/2023, 06/06/2021, 11/05/2020, Additional history exists Influenza for age 50-64 03/22/2024 Pneumococcal series for age 6-64 Aged Out No longer eligible based on patient's age to complete this topic Procedures Procedure Name Priority Date/Time Associated Diagnosis Comments SPIROMETRY AND LUNG VOLUMES WITH BRONCHODILATOR Routine 04/07/2024 9:00 AM CDT Shortness of breath from Last 3 Months Results * SPIROMETRY AND LUNG VOLUMES WITH BRONCHODILATOR (04/07/2024 9:00 AM CDT) Narrative [facility] - 04/07/2024 9:00 AM CDT Ifeanyi Madrid MD ? 04/08/2024 ??2:33 PM Complete Pulmonary Function Tests. Ordering Provider: -- Reason for Study: Dyspnea on exertion Date of study: 04/07/2024 Study adequacy: The study is technically inadequate. ??Interpret results with caution. DESCRIPTION: Spirometry is normal There is no bronchodilator responsiveness. The flow volume loop is normal There is a mild increase in the RV/TLC ratio which is seen in hyperinflation. Diffusion is normal IMPRESSION: Spirometry is normal. Lung volumes suggest hyperinflation which suggests obstructive lung disease. Diffusion is normal. Pulmonary Function Tests describe physiology and are not independently diagnostic. ??Clinical correlation is recommended. Provided differential diagnosis are not exhaustive. Severity Z-Score Normal > -1.645 Mild - 1.645 to -2.5 Moderate -2.5 to -4 Severe < -4 Ifeanyi Madrid MD DiplJEVON no in Pulmonary and Sleep Medicine Nathaniel Dee MD PFT ORD [facility] [place], [place] from Last 3 Months Care Teams Material Movers Relationship Specialty Start Date End Date Nathaniel Dee MD [address] [place] [address] PCP - General Family Practice 01/03/22
--- OUTSIDE RECORDS SUMMARY | 2024-05-28 13:33 | XMS_ITS | Referral Summary ---
Author Organization [facility] Address [address] [place] [address] Care Team Providers Care Terminal Manager Name Role Phone Unavailable Primary Care Provider Unavailabl e Source Comments Patient records contain information from all sites at [facility]. For routine questions regarding patient records, call [phone] during business hours, M-F 8:00 AM - 5:00 PM Central Time. Record requests for emergency care only can be directed to [phone] at any time.[facility] Encounters Date Type Department Care Team Description 05/05/2024 8:00 AM CDT External Outreach Division of Nephrology and Hypertension in [place], [place] [address] [place] [address] Alex Ryan Jr., D.O. Diabetes Mellitus Type 2 (HCC) (Primary Dx); Chronic Kidney Disease (CKD), Stage 3a Glomerular Filtration Rate (GFR) 45 To 59 (HCC); Hypertensive Chronic Kidney Disease With Stage 1 Through Stage 4 Chronic Kidney Disease, Or Unspecified Chronic Kidney Disease; Hyperlipidemia Mixed from Last 3 Months Medications metFORMIN (GLUCOPHAGE) 1,000 mg tablet Take 0.5 tablets (500 mg total) by mouth 2 (two) times a day with meals. 90 tablet 3 05/10/2020 Active losartan (COZAAR) 100 mg tablet Take 1 tablet (100 mg total) by mouth daily. 135 tablet 3 04/30/2023 Active metoprolol tartrate (LOPRESSOR) 25 mg tablet Take 1 tablet (25 mg total) by mouth daily. 90 tablet 3 04/30/2023 Active amLODIPine (NORVASC) 10 mg tablet Take 1 tablet (10 mg total) by mouth daily. 90 tablet 3 04/30/2023 Active empagliflozin (Jardiance) 10 mg tablet Take 1 tablet (10 mg total) by mouth daily before morning meal. 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 Hypertensive Chronic Kidney Disease With Stage 1 Through Stage 4 Chronic Kidney Disease, Or Unspecified Chronic Kidney Disease 05/10/2020 Hyperlipidemia Mixed 05/10/2020 Social History Tobacco Use Types Packs/Day Years Used Date Smoking Tobacco: Never Assessed Dental Answer Date Recorded Dental: Regular Dentist Unknown 09/24/19 21 Sex and Gender Information Value Date Recorded Sex Assigned at Not on file 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
--- OUTSIDE RECORDS SUMMARY | 2024-05-28 13:33 | XMS_ITS | Clinical Summary ---
Author Organization [facility] Address [address] [place] [address] Care Team Providers Care Equipment Engineering Technician Name Role Phone Unavailable Primary Care Provider Unavailabl e Source Comments Patient records contain information from all sites at [facility]. For routine questions regarding patient records, call [phone] during business hours, M-F 8:00 AM - 5:00 PM Central Time. Record requests for emergency care only can be directed to [phone] at any time.[facility] Medications metFORMIN (GLUCOPHAGE) 1,000 mg tablet Take [...] before morning meal. 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 Gender Identity Not on file Sexual Orientation [...] 05/05/2024 8:05 AM CDT Plan of Treatment Health Maintenance Due Date Last Done Comments CT Colonography 1962 Cologuard 1962 Colonoscopy 1962 Colorectal Cancer Screening 1962 Diabetic Office Visit with Foot Exam 1962 Dilated Eye Exam 1962 FIT 1962 HIV Screening 1962 Hemoglobin A1C 1962 Hepatitis C Screening 1962 Lipid (Cholesterol) Screening 1962 Urine Albumin 1962 Hepatitis B Vaccines (1 of 3 - Risk 3-dose series) 2022 Creatinine Level (Kidney Function Test) 01/23/2023 01/23/2022 Potassium Level 01/23/2023 01/23/2022 Sodium Level 01/23/2023 01/23/2022 Depression Screening (Annual PHQ-2) 07/22/2023 COVID-19 Vaccine ( - season) 2024 05/20/2023, 06/06/2021, 11/05/2020, Additional history exists Influenza Vaccine (#1) 2024 , 05/24/2022, 04/19/2021, Additional history exists Office Visit for Blood Pressure Check / Re-check 05/05/2025 05/05/2024 DTaP,Tdap,and Td Vaccines (2 - Td or Tdap) 10/12/2025 10/13/2015 Pneumococcal vaccine (0-64 years) (3 of 3 - PPSV23 or PCV20) 2027 05/06/2018, 10/26/2017 Zoster Vaccines Completed 04/25/2019, 10/26/2017 IPV Vaccines Aged Out No longer eligi ble based on patient's age to complete this topic Insurance [facility]
--- OUTSIDE RECORDS SUMMARY | 2024-05-28 13:33 | XMS_ITS | Encounter Summary ---
Author Organization [facility] Address [address] [place] [address] Care Team Providers Care Casework Supervisor Name Role Phone Unavailable Primary Care Provider Unavailabl e Reason for Visit * Appointment Request (Routine) - Closed Specialty Diagnoses / Procedures Referred By Contethel t Referred To Contact Nephrology and Hypertension Referral ID Status Reason Start Date Expiration Date Visits Re quested Visits Authorized [id number] Closed 03/13/2024 03/13/2025 1 1 Encounter Details Date Type Department Care Team (Latest Contact Info) Description 05/05/2024 8:00 AM CDT External Outreach Division of Nephrology and Hypertension in [place], [place] [address] [place] [address] Alex Ryan Jr., D.O. 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 - 05/05/2024 8:00 AM CDT Referring Provider: No primary care provider on file. SUBJECTIVE REASON FOR VISIT [place] out reach CKD Clinic Follow-up regards CKD stage IIIA, with diabetes, hypertension HISTORY OF PRESENT ILLNESS Mr. Mosley is a 64 y.o. male who presents with a history of hypertension, diabetes mellitus and CKD stage IIIA, whose creatinine has actually improved from 1.6-1.4 mg/dL. Since our last visit his metoprolol was increased from 25-50 mg orally daily, continues on amlodipine 10 mg orally daily, losartan 100 mg orally daily and isosorbide mononitrate 30 mg orally daily. His blood pressures at home have been in the 108-150 range following the increase in his metoprolol. He has no orthostatic issues. He does however complain of abdominal bloating and feels as though he is carrying extra water. He has no lower extremity edema. No chest pain no shortness of breath. No hypoglycemic events no diabetes related complications. We discussed the G LP 1 agonist and SG LT 2 inhibitors, and the possible benefits these could afford him. We specifically discussed the decreased risks of stroke, heart attack, congestive heart failure and end-stage renal disease associated with the use of both of these classes of drugs. He is interested in initiating the SG LT 2 inhibitor, Jardiance, 10 mg orally daily. We discussed the rare consequence of urinary tract infection, much more prevalent in women, and diabetic ulcers, again very unusual and since the patient has had none of these seems low risk. No past medical history on file. Current Outpatient Medications: amLODIPine (NORVASC) 10 mg tablet, Take 1 tablet (10 mg total) by mouth daily., Disp: 90 tablet, Rfl: 3 empagliflozin (Jardiance) 10 mg tablet, Take 1 tablet (10 mg total) by mouth daily before morning meal., Disp: 90 tablet, Rfl: 3 losartan (COZAAR) 100 mg tablet, Take 1 tablet (100 mg total) by mouth daily., Disp: 135 tablet, Rfl: 3 metFORMIN (GLUCOPHAGE) 1,000 mg tablet, Take 0.5 tablets (500 mg total) by mouth 2 (two) times a day with meals., Disp: 90 tablet, Rfl: 3 metoprolol tartrate (LOPRESSOR) 25 mg tablet, Take 1 tablet (25 mg total) by mouth daily., Disp: 90tablet, Rfl: 3 REVIEW OF SYSTEMS All other systems reviewed and are negative. OBJECTIVE BP 138/86 Pulse 77 Ht 185.4 cm Wt 96.1 kg BMI 27.96 kg/m?? PHYSICAL EXAMINATION General: Awake, alert, oriented. HEENT: MARISSA, EOMI, mucous membranes moist, no oral lesions. Neck: No masses, no bruits. Lungs: Clear to auscultation. Heart: Regular rate and rhythm. No ectopy, murmurs, or rubs. Abdomen: Soft, non-tender. Extremities: No cyanosis, no clubbing, no edema. Neuro: Cranial nerves intact. Gait is normal, strength grossly normal. Skin: No suspicious lesions identified. Psychiatric: Normal affect. DIAGNOSTICS Note microalbumin to creatinine ratio increased from 80 to to 140 milligrams/gram hemoglobin A1c 7.3%, normal CBC normal chemistries creatinine 1.4 total cholesterol 193 LDL 105 ASSESSMENT / PLAN #1 Chronic Kidney Disease (CKD), Stage 3a Glomerular Filtration Rate (GFR) 45 To 59 (HCC) His CKD is relatively stable although I am a bit concerned about the microalbumin to creatinine ratio. Long discussion regards the benefit of SG LT 2 inhibition, and GLP 1 agonist therapy. We will go forward with SG LT 2 inhibitors. Going forward: 1. Initiate Jardiance-empagliflozin 10 mg orally daily 2. Goal blood pressures less than 130s over 80s 3. Consider low-dose 3 times weekly HCTZ 12.5 mg, although in the past this has been associated with severe cramping. 4. Goal glycosylated hemoglobin less than 8%, achieved 5. No NSAIDs or Alves 2 inhibitors 6. Renal panel 2 weeks after the Jardiance initiation 7. I will see him back in a year. 8. I gave him my card and number to contact me if any other side effects develop. #2 Diabetes Mellitus Type 2 (HCC) Please see above discussion, in addition to his metformin I suggest we add empagliflozin 10 mg orally daily, he will start this. #3 Hypertensive Chronic Kidney Disease With Stage 1 Through Stage 4 Chronic Kidney Disease, Or Unspecified Chronic Kidney Disease Please see above discussion #4 Hyperlipidemia Mixed He is holding off on statin therapy due to the cramping that he has experienced in the past Total time: 35 minutes Counseling Time: 30 minutes Alex Ryan Jr., D.O. documented in this encounter Plan of Treatment Not on file documented as of this encounter Visit Diagnoses Diagnosis Diabetes Mellitus Type 2 (HCC)- Primary Chronic Kidney Disease (CKD), Stage 3a Glomerular Filtration Rate (GFR) 45 To 59 (HCC) Hypertensive Chronic Kidney Disease With Stage 1 Through Stage 4 Chronic Kidney Disease, Or Unspecified Chronic Kidney Disease Hyperlipidemia Mixed documented in this encounter
--- OUTSIDE RECORDS SUMMARY | 2024-05-28 13:33 | XMS_ITS ---
Author Organization [facility] Address [address] [place] [address] Care Team Providers Care Drywall Contractor Name Role Phone Unavailable Unavailable Unavailable Surgery Details Not on file Complications Check Surgery Details section. Procedure Estimated Blood Loss Check Surgery Details section. Procedure Findings Check Surgery Details section. Procedure Specimens Taken Check Surgery Details section.
== END 2024-05-26 16:51 | disposition home or self-care (01) ==
LOC: NFLDREF 05-28 13:29
PROVIDERS: PCP Family Medicine; Referring Provider Family Medicine; Visit Provider Internal Medicine Nephrology
DX: N18.30 Chronic kidney disease, stage 3 unspecified (principal); E11.9 Type 2 diabetes mellitus without complications; I10 Essential (primary) hypertension
CPT/HCPCS: 80069

== ENCOUNTER 2025-04-14 08:36 | Outpatient (CLI) | payer OTHER, SELFPAY | END 2025-04-14 08:37 | disposition home or self-care (01) | LOC: NFLDREF 04-16 14:54 | PROVIDERS: PCP Family Medicine; Referring Provider Family Medicine; Visit Provider Family Medicine | DX: I10 Essential (primary) hypertension (principal); N18.30 Chronic kidney disease, stage 3 unspecified; E11.9 Type 2 diabetes mellitus without complications; R06.02 Shortness of breath; R09.89 Other specified symptoms and signs involving the circulatory and respiratory systems; Z12.5 Encounter for screening for malignant neoplasm of prostate | CPT/HCPCS: 80053; 80061; 82043; 82570; G0103 ==